=== PATIENT | male | born 1960 | race Caucasian/White ===

== ENCOUNTER 2016-11-08 19:22 | Emergency (ER) | payer OTHER ==
[2016-11-08 19:42] VITALS: BP 139/122
[2016-11-08] MEDS ORDERED: Ondansetron 4 MG/2 ML SDV IVPUSH STA (20:41)
[2016-11-08] MEDS ORDERED: Sodium Chloride 0.9% 1,000 ML IV ONE (20:41)
--- NOTE | 2016-11-08 20:51 | EDM.PDOC ---
ED HPI Allergic Reaction - General Chief Complaint: Allergic Reaction Stated Complaint: POSS ALLERGIC REACTION Time Seen by Provider: 11/08/16 19:39 Source of Information: Reports: Patient, Old records, RN notes reviewed History Limitations: Reports: No limitations - History of Present Illness INITIAL COMMENTS - FREE TEXT/NARRATIVE: The patient states that he has had nausea and vomiting for the past 3 days, he believes. He complains of generalized crampy abdominal pain. No recent diarrhea. No recent fever. The patient admits that he is a heavy drinker. He is a chronic daily alcoholic since 12 years of age. His last period of sobriety was for 45 days when he was in inpatient treatment, about a year ago. He then remained sober for approximately 2 weeks before resuming drinking, and has been drinking essentially daily ever since. He states that he drinks 10 fireball shot bottles and one can of beer per day. He believes that his last drink was 2 days ago, which would be 11/06/2016, but he is disoriented to time, bleeding that today is Monday, therefore it is possible that his last drink was on 11/04/2016. He states that he has been hospitalized in the past for his alcoholism, but it does not sound as though he has experienced actual delirium tremens. He has had alcoholic hallucinosis in the past, but denies having any hallucinations recently. Here in the ED we find patient's BP to be elevated at 139/122, tachycardic at 109 bpm, afebrile, saturating 98% on room air. - Related Data Allergies/ADRs: Allergies Allergy/AdvReac Type Severity Reaction Status Date / Time No Known Allergies Allergy Verified 11/08/16 19:35 Home Meds: Home Meds Folic Acid 1 tab PO DAILY 07/07/16 [History] Multivitamin [Multi-Vitamin Daily] 1 tab PO DAILY 07/07/16 [History] Omeprazole 20 mg PO BID 07/07/16 [History] Acetaminophen [Tylenol] 650 mg PO Q4H PRN 07/25/16 [History] Ranitidine [Zantac] 150 mg PO BID 07/25/16 [History] Thiamine [Vitamin B-1] 100 mg PO DAILY 07/25/16 [History] diphenhydrAMINE HCl [Diphenhydramine HCl] 50 mg PO BEDTIME 07/25/16 [History] metroNIDAZOLE/Skin Cleansr #23 [[place] 0.75% Gel Kit] 1 applic TOP BID [History] oxyCODONE HCl [Oxycodone HCl] 10 mg PO Q4H PRN 07/25/16 [History] Aspirin 81 mg PO BRK 08/16/16 [History] atorvaSTATin [Lipitor] 80 mg PO BEDTIME 08/16/16 [History] guaiFENesin [Mucinex] 600 mg PO BID 08/16/16 [History] tiZANidine HCl [Zanaflex] 4 mg PO Q6H PRN 08/16/16 [History] Acetaminophen/HYDROcodone [[place] 325-5 MG] 1 tab PO Q4H PRN #15 tablet 08/18/16 [Rx] Docusate Sodium [Colace] 100 mg PO BID #60 cap 08/18/16 [Rx] Metoprolol Tartrate [Lopressor] 75 mg PO BID #60 tablet 08/18/16 [Rx] Rivaroxaban [Xarelto] 20 mg PO DAILY #30 tablet 08/18/16 [Rx] Past Medical History Cardiovascular History: Reports: Afib (paroxysmal), High cholesterol, Hypertension Respiratory History: Reports: COPD Gastrointestinal History: Reports: GERD Genitourinary History: Reports: Renal calculus Musculoskeletal History: Reports: Fracture (right foot) Psychiatric History: Reports: Addiction Endocrine/Metabolic History: Reports: Obesity/BMI 30+ - Infectious Disease History Infectious Disease History: Reports: Hepatitis C, MRSA Other Infectious Disease History: Hep C per [facility] hospitalist/[place], 06/2016. - Past Surgical History Musculoskeletal Surgical History: Reports: ORIF (left tibia, right tibia, left foot), Other (see below) (Left biceps tendon repair) Social & Family History - Family History Family Medical History: Noncontributory Neurological: Reports: CVA Endocrine/Metabolic: Reports: Diabetes, type II Hematologic: Reports: Other (see below) Other Hematologic Family History: hepatitias c Immunologic: Reports: None Oncologic: Reports: Leukemia - Tobacco Use Smoking Status *Q: Current Some Day Smoker Years of Tobacco use: 44 Packs/Tins Daily: 0.5 Used Tobacco, but Quit: No Month Tobacco Last Used: september - Caffeine Use Caffeine Use: Reports: Soda - Alcohol Use Alcohol Use History: Yes Days Per Week of Alcohol Use: 7 Number of Drinks Per Day: 11 Total Drinks Per Week: 77 Alcohol Use Frequency: Daily - Recreational Drug Use Recreational Drug Use: Yes Drug Use in Last 12 Months: Yes Recreational Drug Type: Reports: Benzodiazepines, Cocaine, Heroin, Oxycodone Recreational Drug Use Frequency: Not Used In Over 3 Months - Living Situation & Occupation Living situation: Reports: , alone Occupation: unemployed ED ROS ALLERGIC REACTION - Review of Systems Review Of Systems: See Below Constitutional: Reports: no symptoms HEENT: Reports: No symptoms Respiratory: Reports: No Symptoms Cardiovascular: Reports: No symptoms Endocrine: Reports: no symptoms GI/Abdominal: Reports: No symptoms : Reports: no symptoms Musculoskeletal: Reports: no symptoms Skin: Reports: no symptoms Neurological: Reports: No Symptoms Psychiatric: Reports: No symptoms Hematologic/Lymphatic: Reports: no symptoms Immunologic: Reports: no symptoms ED EXAM GENERAL NO PERIP PULSE - Physical Exam Exam: See Below Exam Limited By: No limitations General Appearance: alert, WD/WN, moderate distress (mentally agitated, diaphoretic) Eye Exam: bilateral eye: EOMI, normal inspection Ears: normal external exam, hearing grossly normal Nose: normal inspection, no blood Throat/Mouth: Normal inspection, Normal lips, Normal voice, No airway compromise Head: atraumatic, normocephalic Neck: normal inspection, full range of motion Respiratory/Chest: no respiratory distress, lungs clear, normal breath sounds, no accessory muscle use Cardiovascular: normal peripheral pulses, no edema, no gallop, no JVD, no murmur , no rub, tachycardia (regular) GI/Abdominal: normal bowel sounds, soft, no organomegaly, no distention, no abnormal bruit, no mass, tender (generalized, non-focal) (Male) Exam: Deferred Rectal (Males) Exam: Deferred Back Exam: normal inspection, full range of motion. No: CVA tenderness (L), CVA tenderness (R) Extremities: normal inspection, normal range of motion, no pedal edema, normal capillary refill Neurological: alert, no motor/sensory deficits, confused, disoriented (to time) Psychiatric: normal affect, other Skin Exam: Intact, No rash, Diaphoretic, Increased warmth Lymphatic: no adenopathy EKG INTERPRETATION EKG Date: 11/08/16 Time: 20:56 Rhythm: other (Sinus tachycardia) Rate (beats/min): 114 [place]: normal P-wave: present QRS: normal ST-T: normal QT: normal Comparison: change from previous EKG (08/17/2016 was in atrial fibrillation) Course - Vital Signs Last Recorded V/S: Last Vital Signs Temp 37.1 C 11/08/16 23:18 Pulse 109 H 11/08/16 19:36 Resp BP 139/122 H 11/08/16 19:36 Pulse Ox 98 11/08/16 19:36 - Orders/Labs/Meds Orders: Active Orders 24 hr Category Date Time Status EKG Documentation Completion [RC] STAT Care 11/08/16 20:37 Active Chest 1V Frontal [CR] Stat Exams 11/08/16 20:37 Taken Chest Abdomen Pelvis w Cont [CT] Stat Exams 11/09/16 00:04 Taken CULTURE BLOOD [BC] Stat Lab 11/09/16 00:50 Received CULTURE BLOOD [BC] Stat Lab 11/09/16 00:58 Received Labs: Laboratory Tests 11/08/16 11/08/16 11/08/16 Range/Units 20:37 20:45 20:45 WBC 14.81 H (4.23-9.07) K/mm3 RBC 6.10 H (4.63-6.08) M/mm3 Hgb 16.9 (13.7-17.5) gm/L Hct 47.9 (40.1-51.0) % MCV 78.5 L (79.0-92.2) fl MCH 27.7 (25.7-32.2) pg MCHC 35.3 (32.2-35.5) g/dl RDW Std Deviation 40.0 (35.1-43.9) fL Plt Count 150 L (163-337) K/mm3 MPV 9.9 (9.4-12.3) fl Neutrophils % (Manual) 92 H (40-60) % Band Neutrophils % 0 (0-10) % Lymphocytes % (Manual) 2 L (20-40) % Atypical Lymphs % 1 % Monocytes % (Manual) 5 (2-10) % Eosinophils % (Manual) 0 L (0.8-7.0) % Basophils % (Manual) 0 L (0.2-1.2) Platelet Estimate Adequate Plt Morphology Comment Normal Poikilocytosis 1+ slight Anisocytosis 1+ slight Microcytosis 1+ slight Tear Drop Cells 1+ slight Ovalocytes 1+ slight RBC Morph Comment Abnormal Puncture Site Rt radial ABG pH 7.44 (7.35-7.45) ABG pCO2 24.5 L (35.0-45.0) mmHg ABG pO2 74.0 L (80.0-100.0) mmHg ABG HCO3 16.5 L (22.0-26.0) meq/L ABG O2 Saturation 95.8 L (96.0-97.0) % ABG Base Excess -5.2 L (-2-2.0) Sudheer Test Positive O2 Delivery Device Room air FiO2 0.00 L (21.00-100.00) % Sodium 133 L (136-145) mEq/L Potassium 4.0 (3.5-5.1) mEq/L Chloride 96 L (98-107) mEq/L Carbon Dioxide 16 L (21-32) mEq/L Anion Gap 25.0 H (5-15) BUN 18 (7-18) mg/dL Creatinine 1.4 H (0.7-1.3) mg/dL Est Cr Clr Drug Dosing 54.43 mL/min Estimated GFR (MDRD) 52 (>60) mL/min BUN/Creatinine Ratio 12.9 L (14-18) Glucose 204 H (74-106) mg/dL Serum Osmolality (280-300) mosm/kg Lactic Acid (0.4-2.0) mmol/L Calcium 9.0 (8.5-10.1) mg/dL Magnesium 1.4 L (1.8-2.4) mg/dl Total Bilirubin 4.7 H (0.2-1.0) mg/dL Direct Bilirubin (0.0-0.2) mg/dl AST 2538 H (15-37) U/L ALT 3985 H (16-63) U/L Alkaline Phosphatase 114 (46-116) U/L Creatine Kinase (39-308) U/L Troponin I 0.041 (0.00-0.056) ng/mL B-Natriuretic Peptide (0-100) pg/mL Total Protein 7.3 (6.4-8.2) g/dl Albumin 3.9 (3.4-5.0) g/dl Globulin 3.4 gm/dL Albumin/Globulin Ratio 1.2 (1-2) Amylase (25-115) U/L Lipase 879 H (73-393) U/L Urine Color (Yellow) Urine Appearance (Clear) Urine pH (5.0-8.0) Ur Specific [place] (1.005-1.030) Urine Protein (Negative) Urine Glucose (UA) (Negative) Urine Ketones (Negative) Urine Occult Blood (Negative) Urine Nitrite (Negative) Urine Bilirubin (Negative) Urine Urobilinogen (0.2-1.0) Ur Leukocyte Esterase (Negative) Urine RBC (0-5) /hpf Urine WBC (0-5) /hpf Ur Epithelial Cells Ur Squamous Epith Cells (0-5) /hpf Urine Bacteria (FEW) /hpf Hyaline Casts (0-5) /lpf Urine Mucus (FEW) /hpf Salicylates (2.8-20) mg/dL Urine Opiates Screen (NEGATIVE) Ur Buprenorphine Scrn (NEGATIVE) Ur Oxycodone Screen (NEGATIVE) Urine Methadone Screen (NEGATIVE) Ur Propoxyphene Screen (NEGATIVE) Acetaminophen 0 L (10-30) ug/mL Ur Barbiturates Screen (NEGATIVE) Ur Tricyclics Screen (NEGATIVE) Ur Phencyclidine Scrn (NEGATIVE) Ur Amphetamine Screen (NEGATIVE) U Methamphetamines Scrn (NEGATIVE) U Benzodiazepines Scrn (NEGATIVE) U Cocaine Metab Screen (NEGATIVE) U Marijuana (THC) Screen (NEGATIVE) Ethyl Alcohol 0.00 (0.00) gm% 11/08/16 11/08/16 11/08/16 Range/Units 20:45 20:45 20:45 WBC (4.23-9.07) K/mm3 RBC (4.63-6.08) M/mm3 Hgb (13.7-17.5) gm/L Hct (40.1-51.0) % MCV (79.0-92.2) fl MCH (25.7-32.2) pg MCHC (32.2-35.5) g/dl RDW Std Deviation (35.1-43.9) fL Plt Count (163-337) K/mm3 MPV (9.4-12.3) fl Neutrophils % (Manual) (40-60) % Band Neutrophils % (0-10) % Lymphocytes % (Manual) (20-40) % Atypical Lymphs % % Monocytes % (Manual) (2-10) % Eosinophils % (Manual) (0.8-7.0) % Basophils % (Manual) (0.2-1.2) Platelet Estimate Plt Morphology Comment Poikilocytosis Anisocytosis Microcytosis Tear Drop Cells Ovalocytes RBC Morph Comment Puncture Site ABG pH (7.35-7.45) ABG pCO2 (35.0-45.0) mmHg ABG pO2 (80.0-100.0) mmHg ABG HCO3 (22.0-26.0) meq/L ABG O2 Saturation (96.0-97.0) % ABG Base Excess (-2-2.0) Sudheer Test O2 Delivery Device FiO2 (21.00-100.00) % Sodium (136-145) mEq/L Potassium (3.5-5.1) mEq/L Chloride (98-107) mEq/L Carbon Dioxide (21-32) mEq/L Anion Gap (5-15) BUN (7-18) mg/dL Creatinine (0.7-1.3) mg/dL Est Cr Clr Drug Dosing mL/min Estimated GFR (MDRD) (>60) mL/min BUN/Creatinine Ratio (14-18) Glucose (74-106) mg/dL Serum Osmolality (280-300) mosm/kg Lactic Acid (0.4-2.0) mmol/L Calcium (8.5-10.1) mg/dL Magnesium (1.8-2.4) mg/dl Total Bilirubin (0.2-1.0) mg/dL Direct Bilirubin 2.90 H (0.0-0.2) mg/dl AST (15-37) U/L ALT (16-63) U/L Alkaline Phosphatase (46-116) U/L Creatine Kinase (39-308) U/L Troponin I (0.00-0.056) ng/mL B-Natriuretic Peptide 33 (0-100) pg/mL Total Protein (6.4-8.2) g/dl Albumin (3.4-5.0) g/dl Globulin gm/dL Albumin/Globulin Ratio (1-2) Amylase (25-115) U/L Lipase (73-393) U/L Urine Color (Yellow) Urine Appearance (Clear) Urine pH (5.0-8.0) Ur Specific [place] (1.005-1.030) Urine Protein (Negative) Urine Glucose (UA) (Negative) Urine Ketones (Negative) Urine Occult Blood (Negative) Urine Nitrite (Negative) Urine Bilirubin (Negative) Urine Urobilinogen (0.2-1.0) Ur Leukocyte Esterase (Negative) Urine RBC (0-5) /hpf Urine WBC (0-5) /hpf Ur Epithelial Cells Ur Squamous Epith Cells (0-5) /hpf Urine Bacteria (FEW) /hpf Hyaline Casts (0-5) /lpf Urine Mucus (FEW) /hpf Salicylates < 0.2 L (2.8-20) mg/dL Urine Opiates Screen (NEGATIVE) Ur Buprenorphine Scrn (NEGATIVE) Ur Oxycodone Screen (NEGATIVE) Urine Methadone Screen (NEGATIVE) Ur Propoxyphene Screen (NEGATIVE) Acetaminophen (10-30) ug/mL Ur Barbiturates Screen (NEGATIVE) Ur Tricyclics Screen (NEGATIVE) Ur Phencyclidine Scrn (NEGATIVE) Ur Amphetamine Screen (NEGATIVE) U Methamphetamines Scrn (NEGATIVE) U Benzodiazepines Scrn (NEGATIVE) U Cocaine Metab Screen (NEGATIVE) U Marijuana (THC) Screen (NEGATIVE) Ethyl Alcohol (0.00) gm% 11/08/16 11/08/16 11/08/16 Range/Units 20:45 21:05 23:28 WBC (4.23-9.07) K/mm3 RBC (4.63-6.08) M/mm3 Hgb (13.7-17.5) gm/L Hct (40.1-51.0) % MCV (79.0-92.2) fl MCH (25.7-32.2) pg MCHC (32.2-35.5) g/dl RDW Std Deviation (35.1-43.9) fL Plt Count (163-337) K/mm3 MPV (9.4-12.3) fl Neutrophils % (Manual) (40-60) % Band Neutrophils % (0-10) % Lymphocytes % (Manual) (20-40) % Atypical Lymphs % % Monocytes % (Manual) (2-10) % Eosinophils % (Manual) (0.8-7.0) % Basophils % (Manual) (0.2-1.2) Platelet Estimate Plt Morphology Comment Poikilocytosis Anisocytosis Microcytosis Tear Drop Cells Ovalocytes RBC Morph Comment Puncture Site ABG pH (7.35-7.45) ABG pCO2 (35.0-45.0) mmHg ABG pO2 (80.0-100.0) mmHg ABG HCO3 (22.0-26.0) meq/L ABG O2 Saturation (96.0-97.0) % ABG Base Excess (-2-2.0) Sudheer Test O2 Delivery Device FiO2 (21.00-100.00) % Sodium (136-145) mEq/L Potassium (3.5-5.1) mEq/L Chloride (98-107) mEq/L Carbon Dioxide (21-32) mEq/L Anion Gap (5-15) BUN (7-18) mg/dL Creatinine (0.7-1.3) mg/dL Est Cr Clr Drug Dosing mL/min Estimated GFR (MDRD) (>60) mL/min BUN/Creatinine Ratio (14-18) Glucose (74-106) mg/dL Serum Osmolality 289 (280-300) mosm/kg Lactic Acid 7.7 H (0.4-2.0) mmol/L Calcium (8.5-10.1) mg/dL Magnesium (1.8-2.4) mg/dl Total Bilirubin (0.2-1.0) mg/dL Direct Bilirubin (0.0-0.2) mg/dl AST (15-37) U/L ALT (16-63) U/L Alkaline Phosphatase (46-116) U/L Creatine Kinase 431 H (39-308) U/L Troponin I (0.00-0.056) ng/mL B-Natriuretic Peptide (0-100) pg/mL Total Protein (6.4-8.2) g/dl Albumin (3.4-5.0) g/dl Globulin gm/dL Albumin/Globulin Ratio (1-2) Amylase 108 (25-115) U/L Lipase (73-393) U/L Urine Color Dark yellow (Yellow) Urine Appearance Clear (Clear) Urine pH 6.0 (5.0-8.0) Ur Specific [place] > or = 1.030 (1.005-1.030) Urine Protein 2+ H (Negative) Urine Glucose (UA) Negative (Negative) Urine Ketones 1+ H (Negative) Urine Occult Blood 2+ H (Negative) Urine Nitrite Negative (Negative) Urine Bilirubin 1+ H (Negative) Urine Urobilinogen 1.0 (0.2-1.0) Ur Leukocyte Esterase Negative (Negative) Urine RBC 0-5 (0-5) /hpf Urine WBC 5-10 H (0-5) /hpf Ur Epithelial Cells Not Reportable Ur Squamous Epith Cells 10-20 H (0-5) /hpf Urine Bacteria Moderate H (FEW) /hpf Hyaline Casts 20-30 H (0-5) /lpf Urine Mucus Moderate H (FEW) /hpf Salicylates (2.8-20) mg/dL Urine Opiates Screen (NEGATIVE) Ur Buprenorphine Scrn (NEGATIVE) Ur Oxycodone Screen (NEGATIVE) Urine Methadone Screen (NEGATIVE) Ur Propoxyphene Screen (NEGATIVE) Acetaminophen (10-30) ug/mL Ur Barbiturates Screen (NEGATIVE) Ur Tricyclics Screen (NEGATIVE) Ur Phencyclidine Scrn (NEGATIVE) Ur Amphetamine Screen (NEGATIVE) U Methamphetamines Scrn (NEGATIVE) U Benzodiazepines Scrn (NEGATIVE) U Cocaine Metab Screen (NEGATIVE) U Marijuana (THC) Screen (NEGATIVE) Ethyl Alcohol (0.00) gm% 11/08/16 Range/Units 23:28 WBC (4.23-9.07) K/mm3 RBC (4.63-6.08) M/mm3 Hgb (13.7-17.5) gm/L Hct (40.1-51.0) % MCV (79.0-92.2) fl MCH (25.7-32.2) pg MCHC (32.2-35.5) g/dl RDW Std Deviation (35.1-43.9) fL Plt Count (163-337) K/mm3 MPV (9.4-12.3) fl Neutrophils % (Manual) (40-60) % Band Neutrophils % (0-10) % Lymphocytes % (Manual) (20-40) % Atypical Lymphs % % Monocytes % (Manual) (2-10) % Eosinophils % (Manual) (0.8-7.0) % Basophils % (Manual) (0.2-1.2) Platelet Estimate Plt Morphology Comment Poikilocytosis Anisocytosis Microcytosis Tear Drop Cells Ovalocytes RBC Morph Comment Puncture Site ABG pH (7.35-7.45) ABG pCO2 (35.0-45.0) mmHg ABG pO2 (80.0-100.0) mmHg ABG HCO3 (22.0-26.0) meq/L ABG O2 Saturation (96.0-97.0) % ABG Base Excess (-2-2.0) Sudheer Test O2 Delivery Device FiO2 (21.00-100.00) % Sodium (136-145) mEq/L Potassium (3.5-5.1) mEq/L Chloride (98-107) mEq/L Carbon Dioxide (21-32) mEq/L Anion Gap (5-15) BUN (7-18) mg/dL Creatinine (0.7-1.3) mg/dL Est Cr Clr Drug Dosing mL/min Estimated GFR (MDRD) (>60) mL/min BUN/Creatinine Ratio (14-18) Glucose (74-106) mg/dL Serum Osmolality (280-300) mosm/kg Lactic Acid (0.4-2.0) mmol/L Calcium (8.5-10.1) mg/dL Magnesium (1.8-2.4) mg/dl Total Bilirubin (0.2-1.0) mg/dL Direct Bilirubin (0.0-0.2) mg/dl AST (15-37) U/L ALT (16-63) U/L Alkaline Phosphatase (46-116) U/L Creatine Kinase (39-308) U/L Troponin I (0.00-0.056) ng/mL B-Natriuretic Peptide (0-100) pg/mL Total Protein (6.4-8.2) g/dl Albumin (3.4-5.0) g/dl Globulin gm/dL Albumin/Globulin Ratio (1-2) Amylase (25-115) U/L Lipase (73-393) U/L Urine Color (Yellow) Urine Appearance (Clear) Urine pH (5.0-8.0) Ur Specific [place] (1.005-1.030) Urine Protein (Negative) Urine Glucose (UA) (Negative) Urine Ketones (Negative) Urine Occult Blood (Negative) Urine Nitrite (Negative) Urine Bilirubin (Negative) Urine Urobilinogen (0.2-1.0) Ur Leukocyte Esterase (Negative) Urine RBC (0-5) /hpf Urine WBC (0-5) /hpf Ur Epithelial Cells Ur Squamous Epith Cells (0-5) /hpf Urine Bacteria (FEW) /hpf Hyaline Casts (0-5) /lpf Urine Mucus (FEW) /hpf Salicylates (2.8-20) mg/dL Urine Opiates Screen Negative (NEGATIVE) Ur Buprenorphine Scrn Negative (NEGATIVE) Ur Oxycodone Screen Negative (NEGATIVE) Urine Methadone Screen Negative (NEGATIVE) Ur Propoxyphene Screen Negative (NEGATIVE) Acetaminophen (10-30) ug/mL Ur Barbiturates Screen Negative (NEGATIVE) Ur Tricyclics Screen Negative (NEGATIVE) Ur Phencyclidine Scrn Negative (NEGATIVE) Ur Amphetamine Screen Negative (NEGATIVE) U Methamphetamines Scrn Negative (NEGATIVE) U Benzodiazepines Scrn Negative (NEGATIVE) U Cocaine Metab Screen Negative (NEGATIVE) U Marijuana (THC) Screen Negative (NEGATIVE) Ethyl Alcohol (0.00) gm% Meds: Medications Discontinued Medications Generic Name Dose Route Start Last Admin Trade Name Freq PRN Reason Stop Dose Admin Al Hydroxide/Mg Hydroxide 30 0 ml 11/08/16 22:02 11/08/16 22:12 ml/ Lidocaine HCl 15 ml PO 11/08/16 22:03 45 ml ONETIME STA Administration Diatrizoate Meglum/Diatrizoate Sod 90 ml 11/09/16 02:32 11/09/16 02:33 Gastrografin 37% PO 11/09/16 02:33 90 ml ONETIME ONE Administration Diazepam 10 mg 11/08/16 20:39 11/08/16 20:52 Valium IVPUSH 11/08/16 20:40 10 mg ONETIME STA Administration Diazepam 10 mg 11/09/16 00:06 11/09/16 00:16 Valium IVPUSH 11/09/16 00:07 10 mg ONETIME STA Administration Diazepam 10 mg 11/09/16 00:14 11/09/16 00:16 Valium IVPUSH 11/09/16 00:15 Not Given ONETIME ONE Sodium Chloride 1,000 mls @ 999 mls/hr 11/08/16 20:41 11/08/16 21:04 Normal Saline IV 11/08/16 21:41 999 mls/hr ONETIME ONE Administration Magnesium Sulfate 2 gm/ Premix 50 mls @ 50 mls/hr 11/08/16 22:07 11/08/16 22: 12 IV 11/08/16 23:06 50 mls/hr ONETIME ONE Administration Sodium Chloride 1,000 mls @ 150 mls/hr 11/09/16 00:15 11/09/16 00:13 Normal Saline IV 150 mls/hr ASDIRECTED DIAMANTE Administration Vancomycin HCl 1 gm/ Sodium 250 mls @ 250 mls/hr 11/09/16 00:36 11/09/16 00: 51 Chloride IV 11/09/16 01:35 250 mls/hr ONETIME ONE Administration Iopamidol 25 ml 11/09/16 02:32 11/09/16 02:33 Isovue-370 (76%) IVPUSH 11/09/16 02:33 25 ml ONETIME ONE Administration Iopamidol 100 ml 11/09/16 02:32 11/09/16 02:33 Isovue-370 (76%) IVPUSH 11/09/16 02:33 100 ml ONETIME ONE Administration Ondansetron HCl 8 mg 11/08/16 20:41 11/08/16 21:06 Zofran IVPUSH 11/08/16 20:42 8 mg ONETIME STA Administration - Radiology Interpretation Free Text/Narrative:: Portable chest radiograph appears to be grossly normal. Cardiac silhouette is within normal limits. No pulmonary vascular congestion. No pleural effusions. No focal infiltrate. No pneumothorax. Formal read per the Radiologist pending. CT of the abdomen and pelvis with oral and IV contrast is read by [facility] as: 1. Moderate-size hiatal hernia. Gastroesophageal reflux. 2. Proximal sigmoid colonic diverticulitis without perforation or abscess. 3. Additional nonemergent CT findings above the - Re-Assessments/Exams Free Text/Narrative Re-Assessment/Exam: 11/08/16 20:50 The patient is showing numerous signs of impending delirium tremens, including agitation, disorientation to time, and autonomic instability, including tachycardia, elevated blood pressure, and diaphoresis. At this time, he is denying hallucinosis, however, that is not a necessary criterion for delirium tremens. I have ordered IV fluids, Zofran, and Valium 10 mg IVP. I will repeat the Valium as needed with a goal of the patient being alert, but calm. 11/08/16 22:02 Following the single dose of Valium, the patient is alert but much calmer. He is complaining of heartburn. I will order a GI cocktail. 11/08/16 22:04 The patient's ABG demonstrates a primary respiratory alkalosis and concomitant metabolic acidosis. 11/08/16 23:54 The patient's urinalysis reflects contamination, not a UTI. 11/08/16 23:54 The patient is demonstrating significant alcohol withdraw symptoms and, I believe, impending delirium tremens, lactic acidosis, acute hepatitis of undetermined etiology, hypomagnesemia, and an elevated lipase. His alcohol withdrawal symptoms are manifested by mental agitation, disorientation to time, and autonomic instability, including tachycardia, elevated blood pressure, and diaphoresis. His lactic acidosis as demonstrated by an elevated lactic acid level of 7.7, a bicarbonate level of 16, and an anion gap of 25. The etiology of his lactic acidosis is not clear at this time. His acute hepatitis is demonstrated by his elevated transaminases, total bilirubin, and direct bilirubin. Please note that his elevated transaminases are not in an alcoholic pattern. His LFTs were normal on 07/24/2016. The patient is complaining of abdominal pain, and his lipase is elevated at 879. While this is greater than twice the upper limit of normal, is less than 3 times the upper limit of normal, a criterion necessary for a diagnosis of pancreatitis. The case was discussed with Dr. Christensen at 23:38. We are in agreement that the patient is too ill to remain at this facility. The above was discussed with the patient. He is agreeable to transfer to [place]. 11/09/16 00:[address] Sinha, [facility] Administrator at [facility], at 23: 55. He accepts the patient for transfer, but would like us to first obtain a CT scan of the abdomen and pelvis, along with a serum osmole, CPK level, and amylase level, and fax the results once available. These have been ordered. The patient's agitation is increasing, therefore I have ordered a repeat dose of Valium 10 mg, along with additional IV fluid. 11/09/16 00:[address] Sinha at 00:30. He has reviewed the patient's medical records from an admission to their facility in June. He relates that the patient was found to have MRSA in the blood at that time. He was treated, but the patient has a history of noncompliance with medication. He is recommending we obtain blood cultures here, and give the patient a single dose of vancomycin. 11/09/16 02:08 The patient has returned from CT scan. We will proceed with transfer to [place]. 11/09/16 03:[address] scan of the abdomen and pelvis finds acute sigmoid diverticulitis. The CT report has been faxed to [facility]. Departure - Departure Time of Disposition: 02:10 Disposition: DC/Tfer to Acute Hospital 02 Condition: serious Clinical Impression: Alcohol dependence with withdrawal, Lactic acidosis, Acute hepatitis, Hypomagnesemia, Abdominal pain, Elevated lipase, Sigmoid diverticulitis Referrals: Gilda Huang DO [Primary Care Provider] - - My Orders Last 24 Hours: My Active Orders 11/08/16 20:37 EKG Documentation Completion [RC] STAT Chest 1V Frontal [CR] Stat 11/09/16 00:04 Chest Abdomen Pelvis w Cont [CT] Stat 11/09/16 00:50 CULTURE BLOOD [BC] Stat 11/09/16 00:58 CULTURE BLOOD [BC] Stat - Assessment/Plan Last 24 Hours: My Active Orders 11/08/16 20:37 EKG Documentation Completion [RC] STAT Chest 1V Frontal [CR] Stat 11/09/16 00:04 Chest Abdomen Pelvis w Cont [CT] Stat 11/09/16 00:50 CULTURE BLOOD [BC] Stat 11/09/16 00:58 CULTURE BLOOD [BC] Stat
[2016-11-08] MEDS ORDERED: Alum Hydrox/Mag Hydrox/Simeth 30 ML, Lidocaine 2% 15 ML PO STA ×2 (22:02)
[2016-11-08] MEDS ORDERED: Magnesium Sulfate/Water 2 GM in Premix Bag 1 BAG IV ONE (22:07)
[2016-11-09] MEDS ORDERED: Sodium Chloride 0.9% 1,000 ML IV SCH (00:15)
[2016-11-09] MEDS ORDERED: Iopamidol 755 Mg/ML 100 ML Bottle IVPUSH ONE (02:32)
[2016-11-09] MEDS ORDERED: Iopamidol 755 MG/ML 50 ML Bottle IVPUSH ONE (02:32)
[2016-11-09] MEDS ORDERED: Diatrizoate Meglumine/Diatrizoate Sodium 37% 120 ML Bottle PO ONE (02:32)
--- NOTE | 2016-11-09 06:58 | CR ---
Chest: Frontal view of the chest was obtained. Comparison: Previous chest x-ray of 07/27/16. Heart size and mediastinum are within normal limits. Mild tortuosity of the thoracic aorta is seen. Moderately large hiatal hernia is seen. Lungs are clear with no acute infiltrates. Bony structures are grossly intact. Impression: 1. Incidental findings. Nothing acute is identified. Diagnostic code #2
--- NOTE | 2016-11-09 07:20 | CT ---
CT chest Technique: Multiple axial sections through the chest were obtained. Intravenous contrast was utilized. Comparison: Previous chest x-ray performed on the same day. Previous chest CT of 10/17/14. Findings: Moderately large hiatal hernia is seen. Gastroesophageal reflux of contrast is noted. Several pretracheal lymph nodes are seen which are felt to be within normal limits. No coronary artery calcification is seen. No pericardial thickening is seen. Mild areas of scarring seen within the lungs. Lungs otherwise are clear. Bone window settings were reviewed which show mild degenerative endplate spurring within the spine. Old rib fracture is noted within the left tenth and ninth ribs. Old fracture identified within the left transverse process of L3. Impression: 1. Old appearing fractures within the ninth and tenth ribs. Old fracture within the left transverse process of L3. 2. Moderately large hiatal hernia with gastroesophageal reflux contrast. 3. Mild scattered areas of scarring within both lungs. Diagnostic code #2 I agree with preliminary report issued by [facility] (preliminary report dictated on 11/09/16, 3:57 AM Central Time) CT abdomen and pelvis Technique: Multiple axial sections were obtained from above the dome of the diaphragm inferiorly through the pubic symphysis. Intravenous contrast was utilized. No oral contrast has been given. Delayed images were also obtained through the bladder. Comparison: Previous study of 10/17/14. Findings: Fatty infiltration seen within the liver. Spleen at the upper limits of normal felt to be incidental. Fat-containing abdominal wall hernia is seen anteriorly and slightly above the umbilicus. This is identified on prior study and has slightly increased in size. Adrenal glands show no nodule. Pancreas appears within normal limits. Gallbladder shows no calcified gallstones. Kidneys show symmetric contrast enhancement without hydronephrosis or mass. Aorta shows no aneurysmal dilatation. No retroperitoneal adenopathy or mesenteric abnormalities are seen. Bowel wall thickening and slight inflammatory change is seen within a portion of the colon with very slight surrounding inflammatory change suggesting mild diverticulitis. Numerous diverticuli are seen within this region. No fluid collections are seen. No other inflammatory change is noted. Appendix believed to be seen. Delayed images show contrast within the distal ureters and within the bladder. Bone window settings were reviewed which show scattered degenerative spurring within the lumbar spine. Disc space narrowing and vacuum phenomena noted at L4-L5 and L5-S1. Small fat-containing inguinal hernias are seen. Impression: 1. Mild diverticulitis felt to be present. No fluid collections of abscess are seen. 2. Fatty infiltration within the liver and other incidental findings as described above. Diagnostic code #3 I agree with preliminary report issued by [facility] (preliminary report dictated on 11/09/16, 3:57 AM Central Time)
== END 2016-11-09 02:48 ==
LOC: JD.ED 19:22
DX: K57.32 Diverticulitis of large intestine without perforation or abscess without bleeding (principal); F10.239 Alcohol dependence with withdrawal, unspecified; E87.2 Acidosis; E83.42 Hypomagnesemia; R74.8 Abnormal levels of other serum enzymes; I48.0 Paroxysmal atrial fibrillation; Z79.01 Long term (current) use of anticoagulants; I10 Essential (primary) hypertension; E78.00 Pure hypercholesterolemia, unspecified; J44.9 Chronic obstructive pulmonary disease, unspecified; K21.9 Gastro-esophageal reflux disease without esophagitis; E66.9 Obesity, unspecified; Z68.30 Body mass index [BMI] 30.0-30.9, adult; F17.200 Nicotine dependence, unspecified, uncomplicated
CPT/HCPCS: 36415; 36600; 71010; 71260; 74177; 80053; 80306; 81001; 82150; 82248; 82550; 82803; 83605; 83690; 83735; 83880; 83930; 84484; 85025; 87040; 93005; 96361; 96365; 96375; 96376; 99285; A9270; G0480; J2405; J3360; J3370; J7040; J7050; Q9963; Q9967; J3475

== ENCOUNTER 2017-07-06 14:21 | Emergency (ER) | payer OTHER ==
--- NOTE | 2017-07-06 14:34 | EDM.PDOC ---
ED HPI GENERAL MEDICAL PROBLEM - General Chief Complaint: Cardiovascular Problem Stated Complaint: FEET SWELLING Time Seen by Provider: 07/06/17 14:30 - History of Present Illness INITIAL COMMENTS - FREE TEXT/NARRATIVE: 56-year-old male presents emergency room with swollen feet. Patient has long history of atrial fibrillation apparently he was taken off his novel anticoagulant and placed on aspirin other than this he stopped all his medications about a month ago because he was worried that he might have a stroke because he started drinking again. The patient is been drinking fairly heavily for over a month. Over the last couple of days he does noticed increased swelling in his lower extremities she's having increased fatigue and decreased exercise tolerance he is not having any chest pain or shortness of breath. Bilateral Knee Pain Score (Numeric/FACES): 8 - Related Data Allergies Allergy/AdvReac Type Severity Reaction Status Date / Time No Known Allergies Allergy Verified 11/08/16 19:35 Home Meds: Home Meds Omeprazole 20 mg PO BID 07/07/16 [History] Furosemide [Lasix] 20 mg PO DAILY #4 tablet 07/06/17 [Rx] Potassium Chloride [Klor-Con M20] 20 meq PO BID #8 tab.er 07/06/17 [Rx] Past Medical History - Past Health History Medical/Surgical History: Denies Medical/Surgical History HEENT History: Reports: Cataract Cardiovascular History: Reports: Afib, High Cholesterol, Hypertension Other Cardiovascular History: pt is admitted this time with a-fib/RVR Respiratory History: Reports: COPD Other Respiratory History: 07/24/16 admitted with pneumonia Gastrointestinal History: Reports: GERD Genitourinary History: Reports: Renal Calculus Musculoskeletal History: Reports: Fracture (right foot) Other Musculoskeletal History: rigth foot fracture 20 yrs ago Neurological History: Reports: Other (See Below) Other Neuro History: With withdrawal for alcohol Psychiatric History: Reports: Addiction Endocrine/Metabolic History: Reports: Obesity/BMI 30+ Hematologic History: Reports: None Oncologic (Cancer) History: Reports: None - Infectious Disease History Infectious Disease History: Reports: Hepatitis C, MRSA Other Infectious Disease History: Hep C per Demond Ponce hospitalist/[place], 06/2016. - Past Surgical History Musculoskeletal Surgical History: Reports: ORIF, Other (See Below) Social & Family History - Family History Family Medical History: Noncontributory Neurological: Reports: CVA Endocrine/Metabolic: Reports: Diabetes, type II Hematologic: Reports: Other (See Below) Other Hematologic Family History: hepatitias c Immunologic: Reports: None Oncologic: Reports: Leukemia - Tobacco Use Smoking Status *Q: Current Some Day Smoker Years of Tobacco use: 44 Packs/Tins Daily: 0.5 Used Tobacco, but Quit: No Month Tobacco Last Used: september Second Hand Smoke Exposure: No - Caffeine Use Caffeine Use: Reports: Soda - Alcohol Use Days Per Week of Alcohol Use: 7 Number of Drinks Per Day: 11 Total Drinks Per Week: 77 - Recreational Drug Use Recreational Drug Use: Yes Drug Use in Last 12 Months: Yes Recreational Drug Type: Reports: Benzodiazepines, Cocaine, Heroin, Oxycodone Other Recreational Drug Type: used these drugs many years ago; bought some drugs from someone and does not know what he brought-thought it was valium Recreational Drug Use Frequency: Not Used In Over 3 Months - Living Situation & Occupation Living situation: Reports: , Alone Occupation: Unemployed ED ROS GENERAL - Review of Systems Review Of Systems: See Below Constitutional: Reports: Weakness. Denies: Fever, Chills HEENT: Reports: No Symptoms Respiratory: Reports: Other (See history of present illness) Cardiovascular: Reports: Edema. Denies: Chest Pain, Palpitations GI/Abdominal: Reports: No Symptoms Neurological: Reports: No Symptoms Psychiatric: Reports: Other (Increased recent usage of alcohol) ED EXAM, GENERAL - Physical Exam Exam: See Below Exam Limited By: No Limitations General Appearance: Alert, No Apparent Distress, Other (No tremors no tactile hallucination treated in the monitor he is in and out of atrial fibrillation.) Eye Exam: Bilateral Eye: Normal Inspection Head: Atraumatic, Normocephalic Neck: Normal Inspection, Supple, Non-Tender, Full Range of Motion. No: Lymphadenopathy (L), Lymphadenopathy (R) Respiratory/Chest: No Respiratory Distress, Lungs Clear, Normal Breath Sounds Cardiovascular: Regular Rate, Rhythm, No Edema, No Murmur GI/Abdominal: Normal Bowel Sounds, Soft, Non-Tender Back Exam: Normal Inspection. No: CVA Tenderness (L), CVA Tenderness (R) Extremities: Normal Inspection, Pedal Edema (1-2+ pitting in the lower extremities). No: No Pedal Edema Neurological: Alert, Oriented Skin Exam: Warm, Dry, Intact. No: Diaphoretic Lymphatic: No Adenopathy Course - Vital Signs Last Recorded V/S: Last Vital Signs Temp 35.9 C 07/06/17 14:41 Pulse 147 H 07/06/17 17:17 Resp 14 07/06/17 14:41 BP 125/103 H 07/06/17 17:17 Pulse Ox 97 07/06/17 14:41 - Orders/Labs/Meds Labs: Laboratory Tests 07/06/17 07/06/17 07/06/17 Range/Units 14:59 14:59 14:59 WBC 8.56 (4.23-9.07) K/mm3 RBC 4.54 L (4.63-6.08) M/mm3 Hgb 13.7 (13.7-17.5) gm/L Hct 40.1 (40.1-51.0) % MCV 88.3 (79.0-92.2) fl MCH 30.2 (25.7-32.2) pg MCHC 34.2 (32.2-35.5) g/dl RDW Std Deviation 47.6 H (35.1-43.9) fL Plt Count 111 L (163-337) K/mm3 MPV 8.8 L (9.4-12.3) fl Neutrophils % (Manual) 85 H (40-60) % Band Neutrophils % 0 (0-10) % Lymphocytes % (Manual) 10 L (20-40) % Atypical Lymphs % 0 % Monocytes % (Manual) 5 (2-10) % Eosinophils % (Manual) 0 L (0.8-7.0) % Basophils % (Manual) 0 L (0.2-1.2) Platelet Estimate Adequate RBC Morph Comment Normal PT 11.7 (8.0-13.0) SECONDS INR 1.07 APTT 25 (22-36) SECONDS Sodium 142 (136-145) mEq/L Potassium 3.1 L (3.5-5.1) mEq/L Chloride 106 (98-107) mEq/L Carbon Dioxide 22 (21-32) mEq/L Anion Gap 17.1 H (5-15) BUN 7 (7-18) mg/dL Creatinine 0.9 (0.7-1.3) mg/dL Est Cr Clr Drug Dosing 87.61 mL/min Estimated GFR (MDRD) > 60 (>60) mL/min BUN/Creatinine Ratio 7.8 L (14-18) Glucose 164 H (74-106) mg/dL Calcium 8.6 (8.5-10.1) mg/dL Magnesium 1.3 L (1.8-2.4) mg/dl Total Bilirubin 0.8 (0.2-1.0) mg/dL GGT (15-85) U/L AST 36 (15-37) U/L ALT 31 (16-63) U/L Alkaline Phosphatase 70 (46-116) U/L Ammonia (11-32) umol/L Troponin I < 0.017 (0.00-0.056) ng/mL NT-Pro-B Natriuret Pep 485 H (0-125) pg/mL Total Protein 6.7 (6.4-8.2) g/dl Albumin 3.4 (3.4-5.0) g/dl Globulin 3.3 gm/dL Albumin/Globulin Ratio 1.0 (1-2) Lipase (73-393) U/L Urine Color (Yellow) Urine Appearance (Clear) Urine pH (5.0-8.0) Ur Specific Roark (1.005-1.030) Urine Protein (Negative) Urine Glucose (UA) (Negative) Urine Ketones (Negative) Urine Occult Blood (Negative) Urine Nitrite (Negative) Urine Bilirubin (Negative) Urine Urobilinogen (0.2-1.0) Ur Leukocyte Esterase (Negative) Urine RBC (0-5) /hpf Urine WBC (0-5) /hpf Ur Epithelial Cells (0-5) /hpf Urine Bacteria (FEW) /hpf Urine Mucus (FEW) /hpf Urine Opiates Screen (NEGATIVE) Ur Buprenorphine Scrn (NEGATIVE) Ur Oxycodone Screen (NEGATIVE) Urine Methadone Screen (NEGATIVE) Ur Propoxyphene Screen (NEGATIVE) Ur Barbiturates Screen (NEGATIVE) Ur Tricyclics Screen (NEGATIVE) Ur Phencyclidine Scrn (NEGATIVE) Ur Amphetamine Screen (NEGATIVE) U Methamphetamines Scrn (NEGATIVE) U Benzodiazepines Scrn (NEGATIVE) U Cocaine Metab Screen (NEGATIVE) U Marijuana (THC) Screen (NEGATIVE) Ethyl Alcohol (0.00) gm% 07/06/17 07/06/17 07/06/17 Range/Units 14:59 16:10 16:10 WBC (4.23-9.07) K/mm3 RBC (4.63-6.08) M/mm3 Hgb (13.7-17.5) gm/L Hct (40.1-51.0) % MCV (79.0-92.2) fl MCH (25.7-32.2) pg MCHC (32.2-35.5) g/dl RDW Std Deviation (35.1-43.9) fL Plt Count (163-337) K/mm3 MPV (9.4-12.3) fl Neutrophils % (Manual) (40-60) % Band Neutrophils % (0-10) % Lymphocytes % (Manual) (20-40) % Atypical Lymphs % % Monocytes % (Manual) (2-10) % Eosinophils % (Manual) (0.8-7.0) % Basophils % (Manual) (0.2-1.2) Platelet Estimate RBC Morph Comment PT (8.0-13.0) SECONDS INR APTT (22-36) SECONDS Sodium (136-145) mEq/L Potassium (3.5-5.1) mEq/L Chloride (98-107) mEq/L Carbon Dioxide (21-32) mEq/L Anion Gap (5-15) BUN (7-18) mg/dL Creatinine (0.7-1.3) mg/dL Est Cr Clr Drug Dosing mL/min Estimated GFR (MDRD) (>60) mL/min BUN/Creatinine Ratio (14-18) Glucose (74-106) mg/dL Calcium (8.5-10.1) mg/dL Magnesium (1.8-2.4) mg/dl Total Bilirubin (0.2-1.0) mg/dL GGT 108 H (15-85) U/L AST (15-37) U/L ALT (16-63) U/L Alkaline Phosphatase (46-116) U/L Ammonia (11-32) umol/L Troponin I (0.00-0.056) ng/mL NT-Pro-B Natriuret Pep (0-125) pg/mL Total Protein (6.4-8.2) g/dl Albumin (3.4-5.0) g/dl Globulin gm/dL Albumin/Globulin Ratio (1-2) Lipase 147 (73-393) U/L Urine Color Light yellow (Yellow) Urine Appearance Clear (Clear) Urine pH 5.5 (5.0-8.0) Ur Specific Roark 1.015 (1.005-1.030) Urine Protein Negative (Negative) Urine Glucose (UA) Negative (Negative) Urine Ketones Negative (Negative) Urine Occult Blood 1+ H (Negative) Urine Nitrite Negative (Negative) Urine Bilirubin Negative (Negative) Urine Urobilinogen 0.2 (0.2-1.0) Ur Leukocyte Esterase Negative (Negative) Urine RBC 5-10 H (0-5) /hpf Urine WBC 0-5 (0-5) /hpf Ur Epithelial Cells 0-5 (0-5) /hpf Urine Bacteria Occasional (FEW) /hpf Urine Mucus Few (FEW) /hpf Urine Opiates Screen Negative (NEGATIVE) Ur Buprenorphine Scrn Negative (NEGATIVE) Ur Oxycodone Screen Negative (NEGATIVE) Urine Methadone Screen Negative (NEGATIVE) Ur Propoxyphene Screen Negative (NEGATIVE) Ur Barbiturates Screen Negative (NEGATIVE) Ur Tricyclics Screen Negative (NEGATIVE) Ur Phencyclidine Scrn Negative (NEGATIVE) Ur Amphetamine Screen Negative (NEGATIVE) U Methamphetamines Scrn Negative (NEGATIVE) U Benzodiazepines Scrn Negative (NEGATIVE) U Cocaine Metab Screen Negative (NEGATIVE) U Marijuana (THC) Screen Negative (NEGATIVE) Ethyl Alcohol 0.10 (0.00) gm% 07/06/17 Range/Units 16:36 WBC (4.23-9.07) K/mm3 RBC (4.63-6.08) M/mm3 Hgb (13.7-17.5) gm/L Hct (40.1-51.0) % MCV (79.0-92.2) fl MCH (25.7-32.2) pg MCHC (32.2-35.5) g/dl RDW Std Deviation (35.1-43.9) fL Plt Count (163-337) K/mm3 MPV (9.4-12.3) fl Neutrophils % (Manual) (40-60) % Band Neutrophils % (0-10) % Lymphocytes % (Manual) (20-40) % Atypical Lymphs % % Monocytes % (Manual) (2-10) % Eosinophils % (Manual) (0.8-7.0) % Basophils % (Manual) (0.2-1.2) Platelet Estimate RBC Morph Comment PT (8.0-13.0) SECONDS INR APTT (22-36) SECONDS Sodium (136-145) mEq/L Potassium (3.5-5.1) mEq/L Chloride (98-107) mEq/L Carbon Dioxide (21-32) mEq/L Anion Gap (5-15) BUN (7-18) mg/dL Creatinine (0.7-1.3) mg/dL Est Cr Clr Drug Dosing mL/min Estimated GFR (MDRD) (>60) mL/min BUN/Creatinine Ratio (14-18) Glucose (74-106) mg/dL Calcium (8.5-10.1) mg/dL Magnesium (1.8-2.4) mg/dl Total Bilirubin (0.2-1.0) mg/dL GGT (15-85) U/L AST (15-37) U/L ALT (16-63) U/L Alkaline Phosphatase (46-116) U/L Ammonia < 10 L (11-32) umol/L Troponin I (0.00-0.056) ng/mL NT-Pro-B Natriuret Pep (0-125) pg/mL Total Protein (6.4-8.2) g/dl Albumin (3.4-5.0) g/dl Globulin gm/dL Albumin/Globulin Ratio (1-2) Lipase (73-393) U/L Urine Color (Yellow) Urine Appearance (Clear) Urine pH (5.0-8.0) Ur Specific Roark (1.005-1.030) Urine Protein (Negative) Urine Glucose (UA) (Negative) Urine Ketones (Negative) Urine Occult Blood (Negative) Urine Nitrite (Negative) Urine Bilirubin (Negative) Urine Urobilinogen (0.2-1.0) Ur Leukocyte Esterase (Negative) Urine RBC (0-5) /hpf Urine WBC (0-5) /hpf Ur Epithelial Cells (0-5) /hpf Urine Bacteria (FEW) /hpf Urine Mucus (FEW) /hpf Urine Opiates Screen (NEGATIVE) Ur Buprenorphine Scrn (NEGATIVE) Ur Oxycodone Screen (NEGATIVE) Urine Methadone Screen (NEGATIVE) Ur Propoxyphene Screen (NEGATIVE) Ur Barbiturates Screen (NEGATIVE) Ur Tricyclics Screen (NEGATIVE) Ur Phencyclidine Scrn (NEGATIVE) Ur Amphetamine Screen (NEGATIVE) U Methamphetamines Scrn (NEGATIVE) U Benzodiazepines Scrn (NEGATIVE) U Cocaine Metab Screen (NEGATIVE) U Marijuana (THC) Screen (NEGATIVE) Ethyl Alcohol (0.00) gm% Meds: Medications Discontinued Medications Generic Name Dose Route Start Last Admin Trade Name Meredith PRN Reason Stop Dose Admin Furosemide 40 mg 07/06/17 15:09 07/06/17 15:16 Lasix IVPUSH 07/06/17 15:10 40 mg NOW ONE Administration Magnesium Sulfate 2 gm/ Premix 50 mls @ 25 mls/hr 07/06/17 17:19 07/06/17 17: 26 IV 07/06/17 19:18 25 mls/hr ONETIME ONE Administration Metoprolol Tartrate 50 mg 07/06/17 17:06 07/06/17 17:17 Lopressor PO 07/06/17 17:07 50 mg ONETIME ONE Administration Potassium Chloride 40 meq 07/06/17 16:18 07/06/17 16:23 Klor-Con M20 PO 07/06/17 16:19 40 meq ONETIME ONE Administration Potassium Chloride 20 meq 07/06/17 19:27 Klor-Con M20 PO 07/06/17 19:28 ONETIME ONE - Re-Assessments/Exams Free Text/Narrative Re-Assessment/Exam: 07/06/17 16:45 Patient is having a good diuretic response after getting Lasix his potassium came back low at 3.1 his magnesium was also low this can be contributing to his dysrhythmias. Telemetry keeps jump in and out of sinus versus A. fib rate 100 to 120s occasionally as high as 140s he is asymptomatic when he does this. Some labs still pending. 07/06/17 17:22 Case discussed with the hospitalist Dr. Mata, the patient will be treated as an outpatient with oral potassium will restart his metoprolol and [facility] he'll receive 2 g of magnesium prior to leaving our department. He would like some for pain for his knees at this point I'll offer him some Tylenol. I did discuss the Tylenol with him and he is okay giving a try and staying on it as an outpatient. His blood alcohol is 0.1 07/06/17 19:30 Patient is doing well we will discharge. He has Lopressor 100 mg at home he can split these at home and take a half a one twice daily we'll give him a prescription for potassium chloride 20 mEq 3 times daily for 3 days. We'll give him Lasix 20 mg daily for 5 days. Departure - Departure Time of Disposition: 17:26 Disposition: Home, Self-Care 01 Clinical Impression: Paroxysmal atrial fibrillation, Hypokalemia, Hypomagnesemia Prescriptions: Furosemide [Lasix] 20 mg PO DAILY #4 tablet Potassium Chloride [Klor-Con M20] 20 meq PO BID #8 tab.er Referrals: Gilda Huang DO [Primary Care Provider] - Forms: ED Department Discharge Additional Instructions: Return to the emergency room with any questions problems worsening symptoms. Follow-up at the [facility] early this next week for recheck the will need to recheck your potassium and magnesium. Discuss with them that you were noted to be back in atrial fibrillation here in the emergency room and discussed restarting your anticoagulation. Discussed the ongoing alcoholism and further treatment for this. Restart your Lopressor. Apparently you have 100 mg tablets at home take one half twice daily.. You been given a prescription for furosemide, or Lasix, this is a water pill take one the next 4 mornings. Your potassium was noted to be low and he'll take oral potassium for the next 4 days as well one tablet twice daily.
[2017-07-06] MEDS ORDERED: Furosemide 40 MG/4 ML VIAL IVPUSH ONE (15:09)
--- NOTE | 2017-07-06 15:42 | CR ---
Chest: Portable view of the chest was obtained. Comparison: Prior chest CT of 11/09/16 is available. Chest x-ray of 11/08/16 is also available. Left hemidiaphragm is slightly elevated believed to be chronic. Lungs are clear with no acute infiltrates. Heart size is normal. Tortuous thoracic aorta is seen. Bony structures are grossly intact. Impression: 1. Nothing acute is appreciated on portable chest x-ray. Diagnostic code #2
[2017-07-06] MEDS ORDERED: Potassium Chloride 20 MEQ Tab.ER PO ONE ×2 (16:18→19:27)
[2017-07-06] MEDS ORDERED: Metoprolol Tartrate 50 MG Tab PO ONE (17:06)
[2017-07-06 17:18] VITALS: BP 125/103
[2017-07-06] MEDS ORDERED: Magnesium Sulfate/Water 2 GM in Premix Bag 1 BAG IV ONE (17:19)
== END 2017-07-06 20:00 | disposition home or self-care (01) ==
LOC: JD.ED 14:21
DX: I48.0 Paroxysmal atrial fibrillation (principal); E87.6 Hypokalemia; E83.42 Hypomagnesemia; R60.0 Localized edema; I10 Essential (primary) hypertension; E78.00 Pure hypercholesterolemia, unspecified; J44.9 Chronic obstructive pulmonary disease, unspecified; K21.9 Gastro-esophageal reflux disease without esophagitis; F17.210 Nicotine dependence, cigarettes, uncomplicated; Z79.899 Other long term (current) drug therapy
CPT/HCPCS: 36415; 71010; 80053; 80306; 81001; 82140; 82977; 83690; 83735; 83880; 84484; 85025; 85610; 85730; 96365; 96366; 96375; 99284; A9270; G0480; J1940; 93010; J3475

== ENCOUNTER 2017-09-26 11:12 | Inpatient (IN) | payer OTHER ==
[2017-09-26] MEDS ORDERED: Sodium Chloride 0.9% 10 ML Syringe FLUSH PRN (11:27)
[2017-09-26] MEDS ORDERED: Adenosine 6 MG/2 ML SDV IVPUSH ONE (11:28)
[2017-09-26] MEDS ORDERED: Adenosine 12 MG/4 ML SDV IVPUSH ONE (11:29)
[2017-09-26] MEDS ORDERED: Midazolam 1 MG/ML 2 ML SDV IVPUSH ONE (11:29)
[2017-09-26] MEDS ORDERED: Sodium Chloride 0.9% 1,000 ML IV SCH (11:30)
[2017-09-26] MEDS ORDERED: Diltiazem 25 MG/5 ML SDV ONE (11:32)
[2017-09-26] MEDS ORDERED: Diltiazem 125 MG in Sodium Chloride 0.9% 100 ML IV SCH (11:45)
[2017-09-26] MEDS ORDERED: Diltiazem 25 MG/5 ML SDV IVPUSH ONE (11:45)
--- NOTE | 2017-09-26 11:51 | CR ---
Chest: Portable view of the chest was obtained. Comparison: Prior chest x-ray of 07/06/17. Hiatal hernia is noted. Heart size is normal. Upper mediastinum is normal. Patchy increased density within right upper and right lower lung are seen. Left lung is clear. Bony structures are grossly intact. Impression: 1. Patchy density within the upper right lung and right lower lung most likely representing pneumonia. 2. Other incidental findings. Diagnostic code #3
[2017-09-26] MEDS: Diltiazem 125 MG in Sodium Chloride 0.9% 100 ML IV SCH (11:56)
[2017-09-26] MEDS ORDERED: Levofloxacin/Dextrose 5%-Water 750 MG in Premix Bag 1 BAG IV ONE (12:55)
--- NOTE | 2017-09-26 14:16 | EDM.PDOC ---
ED HPI GENERAL MEDICAL PROBLEM - General Chief Complaint: Cardiovascular Problem Stated Complaint: [facility] Time Seen by Provider: 09/26/17 11:27 Source of Information: Reports: Patient History Limitations: Reports: No Limitations - History of Present Illness INITIAL COMMENTS - FREE TEXT/NARRATIVE: The patient presents by ambulance with severe chest pain and shortness of breath. EMS came to get him and his heart rate is fast. They gave him aspirin and started an IV. He says the pain has been there since yesterday and it got worse this morning. He has fever and chills. He does admit to drinking very heavy the past week. He has a history of alcoholism. He also has a history of A-fib. I found that out later from his chart. He has been coughing also. He has nausea but no vomiting. Onset: Gradual Duration: Day(s): (Yesterday) Location: Reports: Chest Quality: Reports: Sharp Severity: Severe Improves with: Reports: None Worsens with: Reports: None Associated Symptoms: Reports: Chest Pain, Cough, Fever/Chills, Shortness of Breath. Denies: Headaches, Nausea/Vomiting - Related Data Allergies Allergy/AdvReac Type Severity Reaction Status Date / Time No Known Allergies Allergy Verified 11/08/16 19:35 Home Meds: Home Meds Omeprazole 20 mg PO BID 07/07/16 [History] Furosemide [Lasix] 20 mg PO DAILY #4 tablet 07/06/17 [Rx] Potassium Chloride [Klor-Con M20] 20 meq PO BID #8 tab.er 07/06/17 [Rx] Past Medical History - Past Health History Medical/Surgical History: Denies Medical/Surgical History HEENT History: Reports: Cataract Cardiovascular History: Reports: Afib, High Cholesterol, Hypertension Other Cardiovascular History: pt is admitted this time with a-fib/RVR Respiratory History: Reports: COPD Other Respiratory History: 07/24/16 admitted with pneumonia Gastrointestinal History: Reports: GERD Genitourinary History: Reports: Renal Calculus Musculoskeletal History: Reports: Fracture (right foot) Other Musculoskeletal History: rigth foot fracture 20 yrs ago Neurological History: Reports: Other (See Below) Other Neuro History: With withdrawal for alcohol Psychiatric History: Reports: Addiction Endocrine/Metabolic History: Reports: Obesity/BMI 30+ Hematologic History: Reports: None Oncologic (Cancer) History: Reports: None - Infectious Disease History Infectious Disease History: Reports: Hepatitis C, MRSA Other Infectious Disease History: Hep C per Dx Jayshree Ponce hospitalist/[place], 06/2016. - Past Surgical History Musculoskeletal Surgical History: Reports: ORIF, Other (See Below) Social & Family History - Family History Family Medical History: Noncontributory Neurological: Reports: CVA Endocrine/Metabolic: Reports: Diabetes, type II Hematologic: Reports: Other (See Below) Other Hematologic Family History: hepatitias c Immunologic: Reports: None Oncologic: Reports: Leukemia - Tobacco Use Smoking Status *Q: Current Some Day Smoker Years of Tobacco use: 44 Packs/Tins Daily: 0.5 Used Tobacco, but Quit: No Month Tobacco Last Used: september Second Hand Smoke Exposure: No - Caffeine Use Caffeine Use: Reports: Soda - Alcohol Use Days Per Week of Alcohol Use: 7 Number of Drinks Per Day: 11 Total Drinks Per Week: 77 - Recreational Drug Use Recreational Drug Use: Yes Drug Use in Last 12 Months: Yes Recreational Drug Type: Reports: Benzodiazepines, Cocaine, Heroin, Oxycodone Other Recreational Drug Type: used these drugs many years ago; bought some drugs from someone and does not know what he brought-thought it was valium Recreational Drug Use Frequency: Not Used In Over 3 Months - Living Situation & Occupation Living situation: Reports: , Alone Occupation: Unemployed ED ROS GENERAL - Review of Systems Review Of Systems: See Below Constitutional: Reports: Fever, Chills HEENT: Reports: No Symptoms Respiratory: Reports: Shortness of Breath, Cough Cardiovascular: Reports: Chest Pain Endocrine: Reports: No Symptoms GI/Abdominal: Reports: No Symptoms : Reports: No Symptoms Musculoskeletal: Reports: No Symptoms ED EXAM, GENERAL - Physical Exam Exam: See Below Exam Limited By: No Limitations General Appearance: Alert, Severe Distress Ears: Normal External Exam Nose: Normal Inspection Head: Atraumatic, Normocephalic Neck: Normal Inspection Respiratory/Chest: No Respiratory Distress, Lungs Clear, Normal Breath Sounds Cardiovascular: No Edema, No Murmur, Tachycardia GI/Abdominal: Soft, Non-Tender, No Organomegaly, No Mass Back Exam: Normal Inspection Extremities: Normal Inspection Neurological: Alert, Oriented, No Motor/Sensory Deficits EKG INTERPRETATION EKG Date: 09/26/17 Time: 11:22 Rhythm: A-Fib Rate (Beats/Min): 175 [place]: Normal QRS: Normal ST-T: Depressed QT: Normal Course - Orders/Labs/Meds Orders: Active Orders 24 hr Category Date Time Status CIWAA Assessment [RC] Q15M Care 09/26/17 14:18 Active CIWAA Assessment [RC] Q1H Care 09/26/17 14:18 Active CIWAA Assessment [RC] Q30M Care 09/26/17 14:18 Active CIWAA Assessment [RC] Q4H Care 09/26/17 14:18 Active Cardiac Monitoring [RC] . DIRECTED Care 09/26/17 11:27 Active EKG Documentation Completion [RC] STAT Care 09/26/17 11:28 Active Height and Weight [RC] DAILY Care 09/26/17 14:18 Active Intake and Output [RC] QSHIFT Care 09/26/17 14:18 Active Notify Provider [RC] PRN Care 09/26/17 14:18 Active Oxygen Therapy [RC] PRN Care 09/26/17 11:27 Active Oxygen Therapy [RC] PRN Care 09/26/17 14:18 Active Peripheral IV Care [RC] . DIRECTED Care 09/26/17 11:27 Active Pulse Oximetry [RC] CONTINUOUS Care 09/26/17 14:18 Active RT Aerosol Therapy [RC] ASDIRECTED Care 09/26/17 14:20 Active Up With Assistance [RC] ASDIRECTED Care 09/26/17 14:18 Active Up ad Sharon [RC] ASDIRECTED Care 09/26/17 14:18 Active VTE/DVT Education [RC] PER UNIT ROUTINE Care 09/26/17 14:18 Active Vital Signs [RC] Q4H Care 09/26/17 14:18 Active Consult to Case Management [CONS] Routine Cons 09/26/17 14:21 Active Consult to Waterproofing Machine Operator [CONS] Routine Cons 09/26/17 14:21 Active Consult to Spiritual Care [CONS] Routine Cons 09/26/17 14:21 Active OT Evaluation and Treatment [CONS] Routine Cons 09/26/17 14:21 Active PT Evaluation and Treatment [CONS] Routine Cons 09/26/17 14:21 Active Respiratory Care Assess and Treatment [CONS] Routine Cons 09/26/17 14:21 Active Regular Diet [DIET] Diet 09/26/17 Lunch Active Chest 2V [CR] AM Exams 09/28/17 05:11 Ordered BASIC METABOLIC PANEL,BMP [CHEM] AM Lab 09/27/17 05:11 Ordered BASIC METABOLIC PANEL,BMP [CHEM] AM Lab 09/28/17 05:11 Ordered BASIC METABOLIC PANEL,BMP [CHEM] AM Lab 09/29/17 05:11 Ordered BASIC METABOLIC PANEL,BMP [CHEM] AM Lab 09/30/17 05:11 Ordered BASIC METABOLIC PANEL,BMP [CHEM] AM Lab 10/01/17 05:11 Ordered BASIC METABOLIC PANEL,BMP [CHEM] AM Lab 10/02/17 05:11 Ordered C-REACTIVE PROTEIN [CHEM] AM Lab 09/27/17 05:11 Ordered C-REACTIVE PROTEIN [CHEM] AM Lab 09/28/17 05:11 Ordered C-REACTIVE PROTEIN [CHEM] AM Lab 09/29/17 05:11 Ordered C-REACTIVE PROTEIN [CHEM] AM Lab 09/30/17 05:11 Ordered C-REACTIVE PROTEIN [CHEM] AM Lab 10/01/17 05:11 Ordered C-REACTIVE PROTEIN [CHEM] AM Lab 10/02/17 05:11 Ordered CBC WITH AUTO DIFF [HEME] AM Lab 09/27/17 05:11 Ordered CBC WITH AUTO DIFF [HEME] AM Lab 09/28/17 05:11 Ordered CBC WITH AUTO DIFF [HEME] AM Lab 09/29/17 05:11 Ordered CBC WITH AUTO DIFF [HEME] AM Lab 09/30/17 05:11 Ordered CBC WITH AUTO DIFF [HEME] AM Lab 10/01/17 05:11 Ordered CBC WITH AUTO DIFF [HEME] AM Lab 10/02/17 05:11 Ordered CULTURE BLOOD [BC] Stat Lab 09/26/17 12:45 Received CULTURE BLOOD [BC] Stat Lab 09/26/17 13:15 Received DRUG SCREEN, URINE [URCHEM] Stat Lab 09/26/17 12:21 Ordered INFLUENZA A+B AG SCREEN [RM] Stat Lab 09/26/17 13:03 Ordered MAGNESIUM [CHEM] AM Lab 09/27/17 05:11 Ordered MAGNESIUM [CHEM] AM Lab 09/28/17 05:11 Ordered MAGNESIUM [CHEM] AM Lab 09/29/17 05:11 Ordered MAGNESIUM [CHEM] AM Lab 09/30/17 05:11 Ordered MAGNESIUM [CHEM] AM Lab 10/01/17 05:11 Ordered MAGNESIUM [CHEM] AM Lab 10/02/17 05:11 Ordered Acetaminophen [Tylenol] Med 09/26/17 14:18 Active 650 mg PO Q4H PRN Acetaminophen/HYDROcodone [Haiku 325-5 MG] Med 09/26/17 14:18 Active 1 tab PO Q4H PRN Albuterol/Ipratropium [DuoNeb 3.0-0.5 MG/3 ML] Med 09/26/17 14:18 Active 3 ml NEB Q4H PRN Bisacodyl [Dulcolax] Med 09/26/17 14:18 Active 5 mg PO DAILY PRN Diltiazem 125 mg Med 09/26/17 12:10 Active Sodium Chloride 0.9% [Normal Saline] 100 ml IV TITRATE Diltiazem [Cardizem CD] Med 09/27/17 09:00 Active 300 mg PO DAILY Docusate Sodium [Colace] Med 09/26/17 14:18 Active 100 mg PO BID PRN Docusate Sodium/Sennosides [Senna Plus] Med 09/26/17 14:18 Active 1 tab PO BID PRN Famotidine [Pepcid] Med 09/26/17 21:00 Active 20 mg PO Q12H Folic Acid Med 09/27/17 09:00 Active 1 mg PO DAILY HYDROmorphone [Dilaudid] Med 09/26/17 14:18 Active 0.25 mg IVPUSH Q2H PRN LORazepam [Ativan] Med 09/26/17 14:18 Active 1 mg IV Q6H PRN LORazepam [Ativan] Med 09/26/17 14:26 Active 2 mg IVPUSH Q4H PRN LORazepam [Ativan] Med 09/26/17 14:26 Active See Protocol IVPUSH Q4H PRN Magnesium Rep Pharmacy to Dose [Pharmacy to Dose - Med 09/26/17 14:30 Active Magnesium Replacement] 1 dose .XX ASDIRECTED Metoprolol Tartrate [Lopressor] Med 09/26/17 14:26 Active 5 mg IVPUSH Q4H PRN Multivitamins,Therapeutic [Thera] Med 09/26/17 15:30 Once 1 each PO ONETIME ONE Nicotine [Habitrol] Med 09/27/17 09:00 Active 21 mg TRDERM DAILY Ondansetron [Zofran] Med 09/26/17 14:18 Active 4 mg IV Q6H PRN Pantoprazole [ProTONIX IV] Med 09/26/17 15:30 Once 40 mg IV ONETIME ONE Piperacillin/Tazobactam [Zosyn] 4.5 gm Med 09/26/17 14:30 Ordered Sodium Chloride 0.9% [Normal Saline] 100 ml IV Q6H Polyethylene Glycol 3350 [MiraLAX] Med 09/26/17 14:18 Active 17 gm PO DAILY PRN Potassium Rep Pharmacy to Dose [Pharmacy to Dose - Med 09/26/17 14:30 Active Potassium Replacement] 1 dose .XX ASDIRECTED Promethazine [Phenergan] 12.5 mg Med 09/26/17 14:18 Active Sodium Chloride 0.9% [Normal Saline] 50 ml IV Q6H QUEtiapine [SEROquel] Med 09/26/17 21:00 Active 50 mg PO BEDTIME Remove Patch Med 09/28/17 09:00 Active 0 ea TRDERM DAILY Saccharomyces Boulardii [Florastor] Med 09/26/17 21:00 Active 250 mg PO BID Sodium Chloride 0.9% [Normal Saline] 1,000 ml Med 09/26/17 11:30 Active IV .BOLUS Sodium Chloride 0.9% [Normal Saline] 1,000 ml Med 09/26/17 14:30 Active IV ASDIRECTED Sodium Chloride 0.9% [Saline Flush] Med 09/26/17 11:27 Active 10 ml FLUSH ASDIRECTED PRN Thiamine [Vitamin B-1] Med 09/27/17 09:00 Active 100 mg PO DAILY Thiamine [Vitamin B-1] 200 mg Med 09/26/17 15:30 Active Sodium Chloride 0.9% [Normal Saline] 50 ml IV ONETIME Topiramate [Topamax] Med 09/26/17 21:00 Active 25 mg PO BID cefTAZidime [Fortaz] 1 gm Med 09/26/17 14:30 Ordered Sodium Chloride 0.9% [Normal Saline] 50 ml IV Q8HR cloNIDine [Catapres] Med 09/26/17 14:21 Active 0.1 mg PO Q4H PRN hydrALAZINE [Apresoline] Med 09/26/17 14:26 Active 20 mg IVPUSH Q4H PRN Blood Culture x2 Reflex Set [OM.PC] Stat Oth 02/27/18 12:20 Ordered Peripheral IV Insertion Adult [OM.PC] Stat Oth 09/26/17 11:27 Ordered Seizure Precautions [OM.PC] Routine Oth 09/26/17 14:21 Ordered Resuscitation Status Routine Resus Stat 09/26/17 14:18 Ordered Medication Orders Acetaminophen (Tylenol) 650 mg PO Q4H PRN PRN Reason: Pain (Mild 1-3)/fever Hydrocodone Bitart/Acetaminophen (Haiku 325-5 Mg) 1 tab PO Q4H PRN PRN Reason: Pain (moderate 4-6) Albuterol/Ipratropium (Duoneb 3.0-0.5 Mg/3 Ml) 3 ml NEB Q4H PRN PRN Reason: Shortness Of Breath/wheezing Bisacodyl (Dulcolax) 5 mg PO DAILY PRN PRN Reason: Constipation Clonidine HCl (Catapres) 0.1 mg PO Q4H PRN PRN Reason: Agitation Diltiazem HCl (Cardizem Cd) 300 mg PO DAILY DIAMANTE Docusate Sodium (Colace) 100 mg PO BID PRN PRN Reason: Constipation Famotidine (Pepcid) 20 mg PO Q12H DIAMANTE Folic Acid (Folic Acid) 1 mg PO DAILY DIAMANTE Stop: 09/29/17 09:01 Hydralazine HCl (Apresoline) 20 mg IVPUSH Q4H PRN PRN Reason: Hypertension Hydromorphone HCl (Dilaudid) 0.25 mg IVPUSH Q2H PRN PRN Reason: Pain (severe 7-10) Sodium Chloride (Normal Saline) 1,000 mls @ 1,000 mls/hr IV .BOLUS DIAMANTE Last Admin: 09/26/17 11:47 Dose: 1,000 mls/hr Diltiazem HCl 125 mg/ Sodium (Chloride) 125 mls @ 5 mls/hr IV TITRATE DIAMANTE; 5 MG /HR PRN Reason: Protocol Last Titration: 09/26/17 14:27 Dose: 10 mg/hr, 10 mls/hr Admin: 09/26/17 11:56 Dose: 5 mg/hr, 5 mls/hr Promethazine HCl 12.5 mg/ (Sodium Chloride) 50.5 mls @ 100 mls/hr IV Q6H PRN PRN Reason: Nausea/Vomiting Sodium Chloride (Normal Saline) 1,000 mls @ 250 mls/hr IV ASDIRECTED [facility] Thiamine HCl 200 mg/ Sodium (Chloride) 52 mls @ 100 mls/hr IV ONETIME ONE Stop: 09/26/17 16:01 Ceftazidime 1 gm/ Sodium (Chloride) 50 mls @ 100 mls/hr IV Q8HR [facility] Piperacillin Sod/Tazobactam (Sod 4.5 gm/ Sodium Chloride) 100 mls @ 33.333 mls/ hr IV Q6H [facility] Lorazepam (Ativan) 1 mg IV Q6H PRN PRN Reason: Nausea/Vomiting Lorazepam (Ativan) 2 mg IVPUSH Q4H PRN PRN Reason: Seizures Lorazepam (Ativan) 0 mg IVPUSH Q4H PRN; Protocol PRN Reason: Withdrawal Symptoms Magnesium Sulfate (Pharmacy To Dose - Magnesium Replacement) 1 dose .XX ASDIRECTED [facility] Metoprolol Tartrate (Lopressor) 5 mg IVPUSH Q4H PRN PRN Reason: Tachycardia Miscellaneous Information (Remove Patch) 0 ea TRDERM DAILY [facility] Multivitamins (Thera) 1 each PO ONETIME ONE Stop: 09/26/17 15:31 Nicotine (Habitrol) 21 mg TRDERM DAILY [facility] Ondansetron HCl (Zofran) 4 mg IV Q6H PRN PRN Reason: Nausea/Vomiting Pantoprazole Sodium (Protonix Iv) 40 mg IV ONETIME ONE Stop: 09/26/17 15:31 Polyethylene Glycol (Miralax) 17 gm PO DAILY PRN PRN Reason: Constipation Potassium Chloride (Pharmacy To Dose - Potassium Replacement) 1 dose .XX ASDIRECTED [facility] Quetiapine Fumarate (Seroquel) 50 mg PO BEDTIME [facility] Saccharomyces Boulardii (Florastor) 250 mg PO BID [facility] Senna/Docusate Sodium (Senna Plus) 1 tab PO BID PRN PRN Reason: Constipation Sodium Chloride (Saline Flush) 10 ml FLUSH ASDIRECTED PRN PRN Reason: Keep Vein Open Last Admin: 09/26/17 11:46 Dose: 10 ml Thiamine HCl (Vitamin B-1) 100 mg PO DAILY [facility] Topiramate (Topamax) 25 mg PO BID [facility] Labs: Laboratory Tests 09/26/17 09/26/17 09/26/17 Range/Units 11:20 11:20 11:20 WBC 18.02 H (4.23-9.07) K/mm3 RBC 4.88 (4.63-6.08) M/mm3 Hgb 15.3 (13.7-17.5) gm/L Hct 43.0 (40.1-51.0) % MCV 88.1 (79.0-92.2) fl MCH 31.4 (25.7-32.2) pg MCHC 35.6 H (32.2-35.5) g/dl RDW Std Deviation 42.4 (35.1-43.9) fL Plt Count 121 L (163-337) K/mm3 MPV 9.7 (9.4-12.3) fl Neut % (Auto) 88.3 H (34.0-67.9) % Lymph % (Auto) 7.2 L (21.8-53.1) % [place] % (Auto) 4.1 L (5.3-12.2) % Eos % (Auto) 0 L (0.8-7.0) Baso % (Auto) 0.1 (0.1-1.2) % Neut # (Auto) 15.93 H (1.78-5.38) K/mm3 Lymph # (Auto) 1.29 L (1.32-3.57) K/mm3 [place] # (Auto) 0.73 (0.30-0.82) K/mm3 Eos # (Auto) 0.00 L (0.04-0.54) K/mm3 Baso # (Auto) 0.01 (0.01-0.08) K/mm3 Manual Slide Review Abnormal smear D-Dimer, Quantitative 0.50 (0.19-0.59) mg/L Sodium 135 L (136-145) mEq/L Potassium 2.6 L (3.5-5.1) mEq/L Chloride 98 (98-107) mEq/L Carbon Dioxide 19 L (21-32) mEq/L Anion Gap 20.6 H (5-15) BUN 8 (7-18) mg/dL Creatinine 1.2 (0.7-1.3) mg/dL Est Cr Clr Drug Dosing TNP Estimated GFR (MDRD) > 60 (>60) mL/min BUN/Creatinine Ratio 6.7 L (14-18) Glucose 187 H (74-106) mg/dL Lactic Acid (0.4-2.0) mmol/L Calcium 8.2 L (8.5-10.1) mg/dL Total Bilirubin 1.0 (0.2-1.0) mg/dL AST 53 H (15-37) U/L ALT 50 (16-63) U/L Alkaline Phosphatase 72 (46-116) U/L Troponin I < 0.017 (0.00-0.056) ng/mL NT-Pro-B Natriuret Pep (0-125) pg/mL Total Protein 7.1 (6.4-8.2) g/dl Albumin 3.5 (3.4-5.0) g/dl Globulin 3.6 gm/dL Albumin/Globulin Ratio 1.0 (1-2) Ethyl Alcohol (0.00) gm% 09/26/17 09/26/17 09/26/17 Range/Units 11:20 11:20 12:45 WBC (4.23-9.07) K/mm3 RBC (4.63-6.08) M/mm3 Hgb (13.7-17.5) gm/L Hct (40.1-51.0) % MCV (79.0-92.2) fl MCH (25.7-32.2) pg MCHC (32.2-35.5) g/dl RDW Std Deviation (35.1-43.9) fL Plt Count (163-337) K/mm3 MPV (9.4-12.3) fl Neut % (Auto) (34.0-67.9) % Lymph % (Auto) (21.8-53.1) % [place] % (Auto) (5.3-12.2) % Eos % (Auto) (0.8-7.0) Baso % (Auto) (0.1-1.2) % Neut # (Auto) (1.78-5.38) K/mm3 Lymph # (Auto) (1.32-3.57) K/mm3 [place] # (Auto) (0.30-0.82) K/mm3 Eos # (Auto) (0.04-0.54) K/mm3 Baso # (Auto) (0.01-0.08) K/mm3 Manual Slide Review D-Dimer, Quantitative (0.19-0.59) mg/L Sodium (136-145) mEq/L Potassium (3.5-5.1) mEq/L Chloride (98-107) mEq/L Carbon Dioxide (21-32) mEq/L Anion Gap (5-15) BUN (7-18) mg/dL Creatinine (0.7-1.3) mg/dL Est Cr Clr Drug Dosing Estimated GFR (MDRD) (>60) mL/min BUN/Creatinine Ratio (14-18) Glucose (74-106) mg/dL Lactic Acid 3.5 H (0.4-2.0) mmol/L Calcium (8.5-10.1) mg/dL Total Bilirubin (0.2-1.0) mg/dL AST (15-37) U/L ALT (16-63) U/L Alkaline Phosphatase (46-116) U/L Troponin I (0.00-0.056) ng/mL NT-Pro-B Natriuret Pep 249 H (0-125) pg/mL Total Protein (6.4-8.2) g/dl Albumin (3.4-5.0) g/dl Globulin gm/dL Albumin/Globulin Ratio (1-2) Ethyl Alcohol 0.04 (0.00) gm% Meds: Medications Generic Name Dose Route Start Last Admin Trade Name Freq PRN Reason Stop Dose Admin Acetaminophen 650 mg 09/26/17 14:18 Tylenol PO Q4H PRN Pain (Mild 1-3)/fever Hydrocodone Bitart/Acetaminophen 1 tab 09/26/17 14:18 Haiku 325-5 Mg PO Q4H PRN Pain (moderate 4-6) Albuterol/Ipratropium 3 ml 09/26/17 14:18 Duoneb 3.0-0.5 Mg/3 Ml NEB Q4H PRN Shortness Of Breath/wheezing Bisacodyl 5 mg 09/26/17 14:18 Dulcolax PO DAILY PRN Constipation Clonidine HCl 0.1 mg 09/26/17 14:21 Catapres PO Q4H PRN Agitation Diltiazem HCl 300 mg 09/27/17 09:00 Cardizem Cd PO DAILY DIAMANTE Docusate Sodium 100 mg 09/26/17 14:18 Colace PO BID PRN Constipation Famotidine 20 mg 09/26/17 21:00 Pepcid PO Q12H DIAMANTE Folic Acid 1 mg 09/27/17 09:00 Folic Acid PO 09/29/17 09:01 DAILY [facility] Hydralazine HCl 20 mg 09/26/17 14:26 Apresoline IVPUSH Q4H PRN Hypertension Hydromorphone HCl 0.25 mg 09/26/17 14:18 Dilaudid IVPUSH Q2H PRN Pain (severe 7-10) Sodium Chloride 1,000 mls @ 1,000 mls/hr 09/26/17 11:30 09/26/17 11:47 Normal Saline IV 1,000 mls/hr .BOLUS DIAMANTE Administration Diltiazem HCl 125 mg/ Sodium 125 mls @ 5 mls/hr 09/26/17 12:10 09/26/17 14:27 Chloride IV 10 mg/hr TITRATE DIAMANTE 10 mls/hr Protocol Titration 5 MG/HR Promethazine HCl 12.5 mg/ 50.5 mls @ 100 mls/hr 09/26/17 14:18 Sodium Chloride IV Q6H PRN Nausea/Vomiting Sodium Chloride 1,000 mls @ 250 mls/hr 09/26/17 14:30 Normal Saline IV ASDIRECTED [facility] Thiamine HCl 200 mg/ Sodium 52 mls @ 100 mls/hr 09/26/17 15:30 Chloride IV 09/26/17 16:01 ONETIME ONE Ceftazidime 1 gm/ Sodium 50 mls @ 100 mls/hr 09/26/17 14:30 Chloride IV Q8HR [facility] Piperacillin Sod/Tazobactam 100 mls @ 33.333 mls/hr 09/26/17 14:30 Sod 4.5 gm/ Sodium Chloride IV Q6H [facility] Lorazepam 1 mg 09/26/17 14:18 Ativan IV Q6H PRN Nausea/Vomiting Lorazepam 2 mg 09/26/17 14:26 Ativan IVPUSH Q4H PRN Seizures Lorazepam 0 mg 09/26/17 14:26 Ativan IVPUSH Q4H PRN Withdrawal Symptoms Protocol Magnesium Sulfate 1 dose 09/26/17 14:30 Pharmacy To Dose - Magnesium Replacement .XX ASDIRECTED [facility] Metoprolol Tartrate 5 mg 09/26/17 14:26 Lopressor IVPUSH Q4H PRN Tachycardia Miscellaneous Information 0 ea 09/28/17 09:00 Remove Patch TRDERM DAILY [facility] Multivitamins 1 each 09/26/17 15:30 Thera PO 09/26/17 15:31 ONETIME ONE Nicotine 21 mg 09/27/17 09:00 Habitrol TRDERM DAILY [facility] Ondansetron HCl 4 mg 09/26/17 14:18 Zofran IV Q6H PRN Nausea/Vomiting Pantoprazole Sodium 40 mg 09/26/17 15:30 Protonix Iv IV 09/26/17 15:31 ONETIME ONE Polyethylene Glycol 17 gm 09/26/17 14:18 Miralax PO DAILY PRN Constipation Potassium Chloride 1 dose 09/26/17 14:30 Pharmacy To Dose - Potassium Replacement .XX ASDIRECTED [facility] Quetiapine Fumarate 50 mg 09/26/17 21:00 Seroquel PO BEDTIME [facility] Saccharomyces Boulardii 250 mg 09/26/17 21:00 Florastor PO BID [facility] Senna/Docusate Sodium 1 tab 09/26/17 14:18 Senna Plus PO BID PRN Constipation Sodium Chloride 10 ml 09/26/17 11:27 09/26/17 11:46 Saline Flush FLUSH 10 ml ASDIRECTED PRN Administration Keep Vein Open Thiamine HCl 100 mg 09/27/17 09:00 Vitamin B-1 PO DAILY [facility] Topiramate 25 mg 09/26/17 21:00 Topamax PO BID [facility] Discontinued Medications Generic Name Dose Route Start Last Admin Trade Name Freq PRN Reason Stop Dose Admin Adenosine 6 mg 09/26/17 11:28 09/26/17 11:19 Adenocard IVPUSH 09/26/17 11:29 6 mg NOW ONE Administration Adenosine 12 mg 09/26/17 11:29 09/26/17 11:20 Adenocard IVPUSH 09/26/17 11:30 12 mg NOW ONE Administration Diltiazem HCl Confirm 09/26/17 11:32 09/26/17 11:42 Diltiazem Administered 09/26/17 11:33 Not Given Dose 25 mg .ROUTE .STK-MED ONE Diltiazem HCl 20 mg 09/26/17 11:45 09/26/17 11:25 Diltiazem IVPUSH 09/26/17 11:46 20 mg ONETIME ONE Administration Diltiazem HCl 125 mg/ Sodium 125 mls @ 5 mls/hr 09/26/17 11:45 Chloride IV TITRATE DIAMANTE Protocol 5 MG/HR Levofloxacin/Dextrose 750 mg/ 150 mls @ 100 mls/hr 09/26/17 12:55 09/26/17 13 :05 Premix IV 09/26/17 14:24 100 mls/hr ONETIME ONE Administration Midazolam HCl 2 mg 09/26/17 11:29 09/26/17 11:21 Versed 1 Mg/Ml IVPUSH 09/26/17 11:30 2 mg ONETIME ONE Administration - Re-Assessments/Exams Free Text/Narrative Re-Assessment/Exam: 09/26/17 14:19 A medical alert was called and the patient was tachycardic with a heart rate over 180. He was symptomatic so I ordered synchronized cardioversion at 100 joules. That did not control his rate. I then gave him versed 2mg IV and then synchronized cardiverted him at 120 joules. That did not convert him so I ordered adenisine 6mg and then 12mgs IV. That did slow him down enough to see that he is in A-fib. I then ordered a cardizem bolus of 20mg IV and then a drip at 10mg IV/hr. That did slow him down and his pain is better. His EKG shows A-fib with RVR and no acute changes. His CXR shows infiltrates in the upper and lower right lobes. I ordered blood cultures and ordered levaquin 750mg IV. His WBC was elevated at 18.02. His D-dimer was negative. His K was low at 2.6. His Na is low at 135. His anion gap is elevated at 20.6. His glucose was elevated at 187. His lactic acid was elevated at 3.5. His AST was elevated at 53. His troponin was negative. His ETOH was elevated at 0.04. He has pneumonia and A-fib with RVR. I called Dr Dickey and he agreed to the admission. Departure - Departure Time of Disposition: 14:55 Disposition: Admitted As Inpatient 65 Condition: Poor Clinical Impression: Hypokalemia, Atrial fibrillation with RVR Pneumonia Qualifiers: Pneumonia type: aspiration pneumonia Aspiration pneumonia type: unspecified Laterality: right Lung location: lower lobe of lung Qualified Code(s): J69.0 - Pneumonitis due to inhalation of food and vomit Referrals: Gilda Huang DO [Primary Care Provider] - Forms: ED Department Discharge - My Orders Last 24 Hours: My Active Orders 09/26/17 11:27 Cardiac Monitoring [RC] . DIRECTED Oxygen Therapy [RC] PRN Peripheral IV Care [RC] . DIRECTED Sodium Chloride 0.9% [Saline Flush] 10 ml FLUSH ASDIRECTED PRN Peripheral IV Insertion Adult [OM.PC] Stat 09/26/17 11:28 EKG Documentation Completion [RC] STAT 09/26/17 11:30 Sodium Chloride 0.9% [Normal Saline] 1,000 ml IV .BOLUS 09/26/17 12:10 Diltiazem 125 mg Sodium Chloride 0.9% [Normal Saline] 100 ml IV TITRATE 09/26/17 13:03 INFLUENZA A+B AG SCREEN [RM] Stat - Assessment/Plan Last 24 Hours: My Active Orders 09/26/17 11:27 Cardiac Monitoring [RC] . DIRECTED Oxygen Therapy [RC] PRN Peripheral IV Care [RC] . DIRECTED Sodium Chloride 0.9% [Saline Flush] 10 ml FLUSH ASDIRECTED PRN Peripheral IV Insertion Adult [OM.PC] Stat 09/26/17 11:28 EKG Documentation Completion [RC] STAT 09/26/17 11:30 Sodium Chloride 0.9% [Normal Saline] 1,000 ml IV .BOLUS 09/26/17 12:10 Diltiazem 125 mg Sodium Chloride 0.9% [Normal Saline] 100 ml IV TITRATE 09/26/17 13:03 INFLUENZA A+B AG SCREEN [RM] Stat
--- NOTE | 2017-09-26 14:17 | PCM.HP ---
H&P History of Present Illness - General Date of Service: 09/26/17 Admit Problem/Dx: Atrial Fibrillation and Aspiration Pneumonia Source of Information: Patient, Old Records, Provider, RN Notes Reviewed History Limitations: Reports: Intoxication, Physical Impairment - History of Present Illness Initial Comments - Free Text/Narative: This is a 57 yo [place] [employer] with past medical hx/o COPD, GERD, Hx/o Hepatitis, Hx/o DTs, Hx/o Substance Abuse, Hx/o Smoking and Medical Non-Compliance who comes in for evaluation of worsening chest pain associated with shortness of breath that started yesterday and was found in atrial fibrillation with rapid ventricular rate as high as 180s. Patient carries a hx/o chronic atrial fibrillation on Warfarin. He is also by hx a chronic alcoholic. He has been drinking alcohol heavily about > 10 bottles (small) of fireball. When asked why he was drinking so much, he states "I'm bored" and got "nothing else to do". His last intake was this morning at about 10 am. He was having shakes/tremors and felt he could use 2 extra fireball to make it go away. In ED, he was treated electrically with sync cardioversion to control his fast heart rate. He was also treated with Adenosin 6 mg and then 12 mg IV to slow him down and thereafter he was treated with Cardizem 20 mg IVP bolus and subsequently put on a drip at 10 mg cc/hr before he was sent to the unit for further management. His initial work up in ED shows a CBC remarkable for WBC of 18.02, MCHC of 35.6 , platelet count of 121, neutrophils of 80.2%, lymphocytes of 7.2%, and monocytes of 4.1%. His chemistry is remarkable for sodium of 135, potassium of 2.6, carbon dioxide of 19, anion gap at 20.6, glucose of 187, lactic acid of 2.5 , calcium of 8.2, AST of 53, and proBNP of 249. His d-dimer and troponin 1 are both within normal limits. His UA is positive for opiates. His blood alcohol level is 0.04. His chest x-ray shows right-sided pulmonary infiltrate. Patient is being admitted for atrial fibrillation with RVR, aspiration pneumonia , alcohol abuse with withdrawal symptoms. He is full code. - Related Data Allergies/Adverse Reactions: Allergies Allergy/AdvReac Type Severity Reaction Status Date / Time No Known Allergies Allergy Verified 11/08/16 19:35 Home Medications: Home Meds Omeprazole 20 mg PO BID 07/07/16 [History] Ferrous Sulfate [Iron] 325 mg PO DAILY 09/26/17 [History] Folic Acid 1 mg PO DAILY 09/26/17 [History] Lipitor. 09/26/17 [History] Metoprolol Tartrate 50 mg PO BID 09/26/17 [History] Thiamine [Vitamin B-1] 100 mg PO DAILY 09/26/17 [History] Past Medical History - Past Health History Medical/Surgical History: Denies Medical/Surgical History HEENT History: Reports: Cataract Cardiovascular History: Reports: Afib, High Cholesterol, Hypertension Other Cardiovascular History: pt is admitted this time with a-fib/RVR Respiratory History: Reports: COPD Other Respiratory History: 07/24/16 admitted with pneumonia Gastrointestinal History: Reports: GERD Genitourinary History: Reports: Renal Calculus Musculoskeletal History: Reports: Fracture (right foot) Other Musculoskeletal History: rigth foot fracture 20 yrs ago Neurological History: Reports: Other (See Below) Other Neuro History: With withdrawal for alcohol Psychiatric History: Reports: Addiction Endocrine/Metabolic History: Reports: Obesity/BMI 30+ Hematologic History: Reports: None Oncologic (Cancer) History: Reports: None - Infectious Disease History Infectious Disease History: Reports: Hepatitis C, MRSA Other Infectious Disease History: Hep C per Demond Ponce hospitalist/[place], 06/2016. - Past Surgical History Musculoskeletal Surgical History: Reports: ORIF, Other (See Below) Social & Family History - Family History Family Medical History: Noncontributory Neurological: Reports: CVA Endocrine/Metabolic: Reports: Diabetes, type II Hematologic: Reports: Other (See Below) Other Hematologic Family History: hepatitias c Immunologic: Reports: None Oncologic: Reports: Leukemia - Tobacco Use Smoking Status *Q: Current Some Day Smoker Years of Tobacco use: 44 Packs/Tins Daily: 0.5 Used Tobacco, but Quit: No Month Tobacco Last Used: september Second Hand Smoke Exposure: No - Caffeine Use Caffeine Use: Reports: Soda - Alcohol Use Days Per Week of Alcohol Use: 7 Number of Drinks Per Day: 11 Total Drinks Per Week: 77 - Recreational Drug Use Recreational Drug Use: Yes Drug Use in Last 12 Months: Yes Recreational Drug Type: Reports: Benzodiazepines, Cocaine, Heroin, Oxycodone Other Recreational Drug Type: used these drugs many years ago; bought some drugs from someone and does not know what he brought-thought it was valium Recreational Drug Use Frequency: Not Used In Over 3 Months - Living Situation & Occupation Living situation: Reports: , Alone Occupation: Unemployed H&P Review of Systems - Review of Systems: Review Of Systems: See Below General: Reports: Fever, Chills. Denies: Malaise, Weakness, Fatigue HEENT: Reports: No Symptoms Pulmonary: Reports: Shortness of Breath, Cough Cardiovascular: Reports: Chest Pain. Denies: Palpitations, Dyspnea on Exertion , Lightheadedness Gastrointestinal: Denies: Abdominal Pain, Anorexia, Constipation, Diarrhea, Decreased Appetite, Distension, Hematemesis, Nausea, Vomiting Genitourinary: Reports: No Symptoms Musculoskeletal: Reports: No Symptoms Skin: Denies: Cyanosis, Jaundice, Mottled, Pallor, Diaphoresis Psychiatric: Denies: Confusion, Depression, Anxiety, Agitation, Hallucinations, Homicidal Ideation Neurological: Reports: Tremors, Gait Disturbance. Denies: Confusion, Dizziness , Headache, Pre-Existing Deficit, Seizure, Syncope, Difficulty Walking Hematologic/Lymphatic: Reports: No Symptoms Immunologic: Reports: No Symptoms Exam - Exam Exam: See Below - Exam General: Alert, Cooperative, Lethargic HEENT: Conjunctiva Clear, Hearing Intact, Mucosa Moist & [place], Nares Patent, Normal Nasal Septum, Posterior Pharynx Clear, Pupils Equal, Pupils Reactive. No : EOMI Neck: Supple, Trachea Midline, Full Range of Motion, Other (short and thick) Lungs: Normal Respiratory Effort, Decreased Breath Sounds, Rhonchi Cardiovascular: Irregular Rhythm, Other (Irregular rate) GI/Abdominal Exam: Normal Bowel Sounds, Soft, Non-Tender, No Organomegaly, No Distention, No Abnormal Bruit, Other (Obese) (Male) Exam: Deferred Rectal (Males) Exam: Deferred Back Exam: Normal Inspection, Decreased Range of Motion Extremities: Normal Inspection, Normal Range of Motion, Non-Tender, No Pedal Edema, Normal Capillary Refill Peripheral Pulses: 2+: Posterior Tibial (L), Posterior Tibial (R), Dorsalis Pedis (L), Dorsalis Pedis (R) Neuro Extensive - Mental Status: Normal Cognition, Memory Intact, Nl Response to Commands Neuro Extensive - Motor, Sensory, Reflexes: CN II-XII Intact (limited but joint pains but grossly intact), Abnormal Gait Psychiatric: Alert, Normal Affect, Normal Mood, Withdrawal Symptoms (mild hand tremors). No: Anxious, Agitated, Suicidal Ideation, Hallucinations - Patient Data Lab Results Last 24 hrs: Laboratory Results - last 24 hr 09/26/17 09/26/17 09/26/17 Range/Units 11:20 11:20 11:20 WBC 18.02 H (4.23-9.07) K/mm3 RBC 4.88 (4.63-6.08) M/mm3 Hgb 15.3 (13.7-17.5) gm/L Hct 43.0 (40.1-51.0) % MCV 88.1 (79.0-92.2) fl MCH 31.4 (25.7-32.2) pg MCHC 35.6 H (32.2-35.5) g/dl RDW Std Deviation 42.4 (35.1-43.9) fL Plt Count 121 L (163-337) K/mm3 MPV 9.7 (9.4-12.3) fl Neut % (Auto) 88.3 H (34.0-67.9) % Lymph % (Auto) 7.2 L (21.8-53.1) % [place] % (Auto) 4.1 L (5.3-12.2) % Eos % (Auto) 0 L (0.8-7.0) Baso % (Auto) 0.1 (0.1-1.2) % Neut # (Auto) 15.93 H (1.78-5.38) K/mm3 Lymph # (Auto) 1.29 L (1.32-3.57) K/mm3 [place] # (Auto) 0.73 (0.30-0.82) K/mm3 Eos # (Auto) 0.00 L (0.04-0.54) K/mm3 Baso # (Auto) 0.01 (0.01-0.08) K/mm3 Manual Slide Review Abnormal smear D-Dimer, Quantitative 0.50 (0.19-0.59) mg/L Sodium 135 L (136-145) mEq/L Potassium 2.6 L (3.5-5.1) mEq/L Chloride 98 (98-107) mEq/L Carbon Dioxide 19 L (21-32) mEq/L Anion Gap 20.6 H (5-15) BUN 8 (7-18) mg/dL Creatinine 1.2 (0.7-1.3) mg/dL Est Cr Clr Drug Dosing TNP Estimated GFR (MDRD) > 60 (>60) mL/min BUN/Creatinine Ratio 6.7 L (14-18) Glucose 187 H (74-106) mg/dL Lactic Acid (0.4-2.0) mmol/L Calcium 8.2 L (8.5-10.1) mg/dL Total Bilirubin 1.0 (0.2-1.0) mg/dL AST 53 H (15-37) U/L ALT 50 (16-63) U/L Alkaline Phosphatase 72 (46-116) U/L Troponin I < 0.017 (0.00-0.056) ng/mL NT-Pro-B Natriuret Pep (0-125) pg/mL Total Protein 7.1 (6.4-8.2) g/dl Albumin 3.5 (3.4-5.0) g/dl Globulin 3.6 gm/dL Albumin/Globulin Ratio 1.0 (1-2) Ethyl Alcohol (0.00) gm% 09/26/17 09/26/17 09/26/17 Range/Units 11:20 11:20 12:45 WBC (4.23-9.07) K/mm3 RBC (4.63-6.08) M/mm3 Hgb (13.7-17.5) gm/L Hct (40.1-51.0) % MCV (79.0-92.2) fl MCH (25.7-32.2) pg MCHC (32.2-35.5) g/dl RDW Std Deviation (35.1-43.9) fL Plt Count (163-337) K/mm3 MPV (9.4-12.3) fl Neut % (Auto) (34.0-67.9) % Lymph % (Auto) (21.8-53.1) % [place] % (Auto) (5.3-12.2) % Eos % (Auto) (0.8-7.0) Baso % (Auto) (0.1-1.2) % Neut # (Auto) (1.78-5.38) K/mm3 Lymph # (Auto) (1.32-3.57) K/mm3 [place] # (Auto) (0.30-0.82) K/mm3 Eos # (Auto) (0.04-0.54) K/mm3 Baso # (Auto) (0.01-0.08) K/mm3 Manual Slide Review D-Dimer, Quantitative (0.19-0.59) mg/L Sodium (136-145) mEq/L Potassium (3.5-5.1) mEq/L Chloride (98-107) mEq/L Carbon Dioxide (21-32) mEq/L Anion Gap (5-15) BUN (7-18) mg/dL Creatinine (0.7-1.3) mg/dL Est Cr Clr Drug Dosing Estimated GFR (MDRD) (>60) mL/min BUN/Creatinine Ratio (14-18) Glucose (74-106) mg/dL Lactic Acid 3.5 H (0.4-2.0) mmol/L Calcium (8.5-10.1) mg/dL Total Bilirubin (0.2-1.0) mg/dL AST (15-37) U/L ALT (16-63) U/L Alkaline Phosphatase (46-116) U/L Troponin I (0.00-0.056) ng/mL NT-Pro-B Natriuret Pep 249 H (0-125) pg/mL Total Protein (6.4-8.2) g/dl Albumin (3.4-5.0) g/dl Globulin gm/dL Albumin/Globulin Ratio (1-2) Ethyl Alcohol 0.04 (0.00) gm% Result Diagrams: 09/26/17 11:20 09/26/17 11:20 *Q Meaningful Use (ADM) - VTE *Q VTE Criteria *Q: - Stroke *Q Stroke Criteria *Q: - AMI *Q AMI Criteria *Q: Problem List Initiated/Reviewed/Updated: Yes Orders Last 24hrs: Active Orders 24 hr Category Date Time Status Cardiac Monitoring [RC] . DIRECTED Care 09/26/17 11:27 Active EKG Documentation Completion [RC] STAT Care 09/26/17 11:28 Active Oxygen Therapy [RC] PRN Care 09/26/17 11:27 Active Peripheral IV Care [RC] . DIRECTED Care 09/26/17 11:27 Active CULTURE BLOOD [BC] Stat Lab 09/26/17 12:45 Received CULTURE BLOOD [BC] Stat Lab 09/26/17 13:15 Received DRUG SCREEN, URINE [URCHEM] Stat Lab 09/26/17 12:21 Ordered INFLUENZA A+B AG SCREEN [RM] Stat Lab 09/26/17 13:03 Ordered Diltiazem 125 mg Med 09/26/17 12:10 Active Sodium Chloride 0.9% [Normal Saline] 100 ml IV TITRATE Levofloxacin/Dextrose 5%-Water [Levaquin in D5W 750 MG/ Med 09/26/17 12:55 Active 150 ML] 750 mg Premix Bag 1 bag IV ONETIME Sodium Chloride 0.9% [Normal Saline] 1,000 ml Med 09/26/17 11:30 Active IV .BOLUS Sodium Chloride 0.9% [Saline Flush] Med 09/26/17 11:27 Active 10 ml FLUSH ASDIRECTED PRN Blood Culture x2 Reflex Set [OM.PC] Stat Oth 09/26/17 12:20 Ordered Peripheral IV Insertion Adult [OM.PC] Stat Oth 09/26/17 11:27 Ordered Medication Orders Sodium Chloride (Normal Saline) 1,000 mls @ 1,000 mls/hr IV .BOLUS DIAMANTE Last Admin: 09/26/17 11:47 Dose: 1,000 mls/hr Diltiazem HCl 125 mg/ Sodium (Chloride) 125 mls @ 5 mls/hr IV TITRATE DIAMANTE; 5 MG /HR PRN Reason: Protocol Last Admin: 09/26/17 11:56 Dose: 5 mg/hr, 5 mls/hr Levofloxacin/Dextrose 750 mg/ (Premix) 150 mls @ 100 mls/hr IV ONETIME ONE Stop: 09/26/17 14:24 Last Admin: 09/26/17 13:05 Dose: 100 mls/hr Sodium Chloride (Saline Flush) 10 ml FLUSH ASDIRECTED PRN PRN Reason: Keep Vein Open Last Admin: 09/26/17 11:46 Dose: 10 ml Assessment/Plan Comment:: Assessment/Plan: Acute: Atrial Fibrillation with RVR - Carries a hx/o Chronic Atrial Fibrillation and Medical Non-compliance - He was on warfarin last time I took care of him; but it seems he is currently on it - Continue Cardizem drip - Resume home dose BB - Consider oral cardizem if not response to BB once off drip - Xarelto 20 mg po daily for anticoagulation Aspiration Pneumonitis - 2/2 Intoxication - Received IV Levaquin 750 mg x1 in ED - Start IV Zosyn 4.5 mg Q8H and Ceftazidime 1 gram Q8H (Gram Negative and Anaerobes) - Oral Probiotic 250 mg po BID - IS as directed - Aspiration precaution - Serial CXR as needed ETOH Abuse - Acute on chronic - Admits to drinking heavily at least > 10 small bottles of fireball - His last drink was 2 bottles at 10 AM - He drinks because he is "bored" and "nothing else to do" - [facility] protocol - Ativan/Librium/Clonidine/Seroquel/Topamax - Hydralazine and IVP BB for HR/BP control - Ativan for Abortive Seizure and Withdrawal Symptoms - SW and SA consult Hypokalemia - K 2.8 - 2/2 Inadequate intake - Replete and monitor Lactic Acidosis - LA is 3.5 - 2/2 chronic alcoholism - IV hydration Chronic: HTN HLD Chronic Pain GERD Hx/o Hepatitis C and MRSA Hx/o Withdrawal Symptoms Hx/o Renal Stones Hx/o Medical Non-Compliance Hx/o Substance Abuse: Benzo, Cocaine, Heroin, and Oxycodone Hx/o Smoking-quit 2 months ago Plan: Admit to ICU Routine AM Labs [facility] Protocol Resume Home Meds MRSA Screening Aspiration/Fall/Seizure Precautions PT/OT consult DVT/GI PPx: Xarelto and PPI/H2B SW/CM for d/c planning SA consult for Substance Abuse Additional orders as above Code status: 1
[2017-09-26] MEDS ORDERED: Bisacodyl 5 MG Tab PO PRN (14:18)
[2017-09-26] MEDS ORDERED: Ondansetron 4 MG/2 ML SDV IV PRN (14:18)
[2017-09-26] MEDS ORDERED: Acetaminophen/HYDROcodone 325-5 MG Tab PO PRN (14:18)
[2017-09-26] MEDS ORDERED: HYDROmorphone 0.5 MG/0.5 ML SYRINGE IVPUSH PRN (14:18)
[2017-09-26] MEDS ORDERED: Docusate Sodium 100 MG Cap PO PRN (14:18)
[2017-09-26] MEDS ORDERED: Promethazine 12.5 MG in Sodium Chloride 0.9% 50 ML IV PRN (14:18)
[2017-09-26] MEDS ORDERED: Acetaminophen 325 MG Tab PO PRN (14:18)
[2017-09-26] MEDS ORDERED: Polyethylene Glycol 3350 Powder 17 GM Packet PO PRN (14:18)
[2017-09-26] MEDS ORDERED: Albuterol/Ipratropium 3.0-0.5 MG/3 ML Neb Soln NEB PRN (14:18)
[2017-09-26] MEDS ORDERED: cloNIDine 0.1 MG Tab PO PRN (14:21)
[2017-09-26] MEDS ORDERED: hydrALAZINE 20 MG/ML SDV IVPUSH PRN ×2 (14:26→15:28)
[2017-09-26] MEDS ORDERED: Metoprolol Tartrate 5 MG/5 ML SDV IVPUSH PRN ×2 (14:26→15:28)
[2017-09-26] MEDS ORDERED: LORazepam 2 MG/ML SDV IVPUSH PRN (14:26)
[2017-09-26] MEDS ORDERED: chlordiazePOXIDE 25 MG Cap PO ONE ×2 (15:05→19:09)
[2017-09-26] MEDS ORDERED: Topiramate 25 MG Tab PO STA (15:07)
[2017-09-26] MEDS ORDERED: QUEtiapine 25 MG Tab PO ONE (15:14)
[2017-09-26] MEDS ORDERED: Enoxaparin 40 MG/0.4 ML Syringe SUBCUT ONE (15:29)
[2017-09-26] MEDS ORDERED: Multivitamins,Therapeutic Tab PO ONE (15:30)
[2017-09-26] MEDS ORDERED: Pantoprazole 40 MG Vial IV ONE (15:30)
[2017-09-26] MEDS ORDERED: Potassium Chloride 20 MEQ Tab.ER PO ONE (15:31)
[2017-09-26] MEDS ORDERED: Piperacillin/Tazobactam 4.5 GM in Sodium Chloride 0.9% 100 ML IV ONE (16:00)
[2017-09-26] MEDS: LORazepam 2 MG/ML SDV IVPUSH PRN ×3 (17:07→23:06)
[2017-09-26] MEDS ORDERED: Aluminum Hydroxide/Magnesium Hydroxide/Simethicone Susp 30 ML Cup PO PRN (17:22)
[2017-09-26] MEDS: Sodium Chloride 0.9% 1,000 ML IV SCH ×2 (17:38→23:06)
[2017-09-26] MEDS: cefTAZidime 1 GM in Sodium Chloride 0.9% 50 ML IV SCH ×2 (18:01→23:06)
[2017-09-26] MEDS: LORazepam 2 MG/ML SDV IV PRN (18:29)
[2017-09-26] MEDS: Topiramate 25 MG Tab PO SCH (20:19)
[2017-09-26] MEDS: Saccharomyces Boulardii (Probiotic) 250 MG Cap PO SCH (20:19)
[2017-09-26] MEDS: Famotidine 20 MG Tab PO SCH (20:20)
[2017-09-26] MEDS ORDERED: QUEtiapine 25 MG Tab PO SCH (21:00)
[2017-09-26] MEDS ORDERED: Metoprolol Tartrate 50 MG Tab PO SCH ×2 (21:00)
[2017-09-26] MEDS ORDERED: Midazolam 1 MG/ML 5 ML SDV ONE (22:22)
[2017-09-26] MEDS ORDERED: diphenhydrAMINE 50 MG/ML SDV IVPUSH ONE (22:39)
[2017-09-27] MEDS: Piperacillin/Tazobactam 4.5 GM in Sodium Chloride 0.9% 100 ML IV SCH ×2 (00:13→08:33)
[2017-09-27] MEDS: LORazepam 2 MG/ML SDV IVPUSH PRN ×4 (00:16→10:00)
[2017-09-27] MEDS ORDERED: Diltiazem 125 MG/25 ML SDV ONE (01:03)
[2017-09-27] MEDS: Diltiazem 125 MG in Sodium Chloride 0.9% 100 ML IV SCH (01:16)
[2017-09-27] MEDS: Sodium Chloride 0.9% 1,000 ML IV SCH (05:55)
[2017-09-27] MEDS: cefTAZidime 1 GM in Sodium Chloride 0.9% 50 ML IV SCH (07:52)
--- NOTE | 2017-09-27 08:03 | PCM.PN ---
- General Info Date of Service: 09/27/17 Admission Dx/Problem (Free Text): Atrial Fibrillation and Aspiration Pneumonia Subjective Update: Follow Up Functional Status: Reports: Pain Controlled, Tolerating Diet, Ambulating, Urinating. Denies: New Symptoms - Review of Systems General: Denies: Fever, Weakness, Fatigue, Malaise, Chills HEENT: Reports: No Symptoms Pulmonary: Denies: Shortness of Breath Cardiovascular: Denies: Chest Pain Gastrointestinal: Denies: Abdominal Pain, Nausea, Vomiting Genitourinary: Reports: Incontinence Musculoskeletal: Reports: No Symptoms Skin: Denies: Jaundice, Mottled, Pallor, Diaphoresis Neurological: Denies: Confusion, Dizziness, Headache, Seizure, Syncope, Difficulty Walking, Weakness, Gait Disturbance Psychiatric: Denies: Depression, Anxiety, Agitation, Hallucinations Systems Review Comment:: No significant overnight or acute issues. He now converted to sinus rhythm. His CIWA is moderately elevated after medications. His K is 2.8 slightly improved form 2.6. His Mg is 1. He is sedated but respond to verbal calls and able to open his eyes. His blood pressures are stable. - Patient Data Vitals - Most Recent: Last Vital Signs Temp 36.7 C 09/26/17 20:00 Pulse 161 H 09/26/17 15:54 Resp 30 H 09/27/17 04:00 BP 115/74 09/27/17 07:00 Pulse Ox 94 L 09/27/17 04:00 Weight - Most Recent: 113.126 kg I&O - Last 24 Hours: Intake & Output 09/26/17 09/27/17 09/27/17 22:59 06:59 14:59 Intake Total 240 2139 Output Total 1025 Balance -785 2139 Lab Results Last 24 Hours: Laboratory Results - last 24 hr 09/26/17 09/27/17 09/27/17 Range/Units 18:09 06:01 06:01 WBC 13.35 H (4.23-9.07) K/mm3 RBC 3.89 L (4.63-6.08) M/mm3 Hgb 12.3 L (13.7-17.5) gm/L Hct 34.8 L (40.1-51.0) % MCV 89.5 (79.0-92.2) fl MCH 31.6 (25.7-32.2) pg MCHC 35.3 (32.2-35.5) g/dl RDW Std Deviation 42.6 (35.1-43.9) fL Plt Count 61 L (163-337) K/mm3 MPV 10.3 (9.4-12.3) fl Neut % (Auto) 83.4 H (34.0-67.9) % Lymph % (Auto) 11.9 L (21.8-53.1) % [place] % (Auto) 4.0 L (5.3-12.2) % Eos % (Auto) 0.2 L (0.8-7.0) Baso % (Auto) 0.1 (0.1-1.2) % Neut # (Auto) 11.13 H (1.78-5.38) K/mm3 Lymph # (Auto) 1.59 (1.32-3.57) K/mm3 [place] # (Auto) 0.53 (0.30-0.82) K/mm3 Eos # (Auto) 0.03 L (0.04-0.54) K/mm3 Baso # (Auto) 0.01 (0.01-0.08) K/mm3 Manual Slide Review Abnormal smear Sodium 140 (136-145) mEq/L Potassium 2.8 L (3.5-5.1) mEq/L Chloride 108 H (98-107) mEq/L Carbon Dioxide 21 (21-32) mEq/L Anion Gap 13.8 (5-15) BUN 8 (7-18) mg/dL Creatinine 0.9 (0.7-1.3) mg/dL Est Cr Clr Drug Dosing 83.65 mL/min Estimated GFR (MDRD) > 60 (>60) mL/min BUN/Creatinine Ratio 8.9 L (14-18) Glucose 98 (74-106) mg/dL Calcium 7.7 L (8.5-10.1) mg/dL Magnesium 1.0 L (1.8-2.4) mg/dl C-Reactive Protein 14.9 H* (<1.0) mg/dL Free T4 0.97 (0.76-1.46) ng/dL TSH 3rd Generation 0.292 L (0.358-3.74) uIU/mL Urine Opiates Screen Presumptive positive H (NEGATIVE) Ur Buprenorphine Scrn Negative (NEGATIVE) Ur Oxycodone Screen Negative (NEGATIVE) Urine Methadone Screen Negative (NEGATIVE) Ur Propoxyphene Screen Negative (NEGATIVE) Ur Barbiturates Screen Negative (NEGATIVE) Ur Tricyclics Screen Negative (NEGATIVE) Ur Phencyclidine Scrn Negative (NEGATIVE) Ur Amphetamine Screen Negative (NEGATIVE) U Methamphetamines Scrn Negative (NEGATIVE) U Benzodiazepines Scrn Negative (NEGATIVE) U Cocaine Metab Screen Negative (NEGATIVE) U Marijuana (THC) Screen Negative (NEGATIVE) [place] Results Last 24 Hours: Microbiology 09/26/17 18:09 Influenza Type A Antigen Screen - Final Nasal Aspirate, Unspecified NEGATIVE INFLUENZA A VIRUS AG Influenza Type B Antigen Screen - Final NEGATIVE INFLUENZA B VIRUS AG Med Orders - Current: Current Medications Acetaminophen (Tylenol) 650 mg PO Q4H PRN PRN Reason: Pain (Mild 1-3)/fever Hydrocodone Bitart/Acetaminophen ([place] 325-5 Mg) 1 tab PO Q4H PRN PRN Reason: Pain (moderate 4-6) Al Hydroxide/Mg Hydroxide (Mag-Al Plus) 30 ml PO Q4H PRN PRN Reason: Heartburn Last Admin: 09/26/17 17:36 Dose: 30 ml Albuterol/Ipratropium (Duoneb 3.0-0.5 Mg/3 Ml) 3 ml NEB Q4H PRN PRN Reason: Shortness Of Breath/wheezing Bisacodyl (Dulcolax) 5 mg PO DAILY PRN PRN Reason: Constipation Clonidine HCl (Catapres) 0.1 mg PO Q4H PRN PRN Reason: Agitation Diltiazem HCl (Cardizem Cd) 300 mg PO DAILY [facility] Docusate Sodium (Colace) 100 mg PO BID PRN PRN Reason: Constipation Famotidine (Pepcid) 20 mg PO Q12H DIAMANTE Last Admin: 09/26/17 20:20 Dose: 20 mg Ferrous Sulfate (Ferrous Sulfate) 325 mg PO DAILY [facility] Folic Acid (Folic Acid) 1 mg PO DAILY [facility] Hydralazine HCl (Apresoline) 20 mg IVPUSH Q4H PRN PRN Reason: Hypertension Hydromorphone HCl (Dilaudid) 0.25 mg IVPUSH Q2H PRN PRN Reason: Pain (severe 7-10) Diltiazem HCl 125 mg/ Sodium (Chloride) 125 mls @ 5 mls/hr IV TITRATE DIAMANTE; 5 MG /HR PRN Reason: Protocol Last Titration: 09/27/17 03:22 Dose: 15 mg/hr, 15 mls/hr Promethazine HCl 12.5 mg/ (Sodium Chloride) 50.5 mls @ 100 mls/hr IV Q6H PRN PRN Reason: Nausea/Vomiting Sodium Chloride (Normal Saline) 1,000 mls @ 250 mls/hr IV ASDIRECTED [facility] Last Admin: 09/27/17 05:55 Dose: 250 mls/hr Ceftazidime 1 gm/ Sodium (Chloride) 50 mls @ 100 mls/hr IV Q8H [facility] Last Admin: 09/27/17 07:52 Dose: 100 mls/hr Piperacillin Sod/Tazobactam (Sod 4.5 gm/ Sodium Chloride) 100 mls @ 25 mls/hr IV Q8H [facility] Last Admin: 09/27/17 00:13 Dose: 25 mls/hr Lorazepam (Ativan) 1 mg IV Q6H PRN PRN Reason: Nausea/Vomiting Last Admin: 09/26/17 18:29 Dose: 1 mg Lorazepam (Ativan) 2 mg IVPUSH Q4H PRN PRN Reason: Seizures Lorazepam (Ativan) 0 mg IVPUSH Q4H PRN; Protocol PRN Reason: Withdrawal Symptoms Last Admin: 09/27/17 06:04 Dose: 2 mg Magnesium Sulfate (Pharmacy To Dose - Magnesium Replacement) 1 dose .XX ASDIRECTED [facility] Metoprolol Tartrate (Lopressor) 5 mg IVPUSH Q4H PRN PRN Reason: Tachycardia Last Admin: 09/26/17 15:54 Dose: 5 mg Metoprolol Tartrate (Lopressor) 50 mg PO Q12HR [facility] Miscellaneous Information (Remove Patch) 0 ea TRDERM DAILY [facility] Ondansetron HCl (Zofran) 4 mg IV Q6H PRN PRN Reason: Nausea/Vomiting Polyethylene Glycol (Miralax) 17 gm PO DAILY PRN PRN Reason: Constipation Potassium Chloride (Pharmacy To Dose - Potassium Replacement) 1 dose .XX ASDIRECTED [facility] Quetiapine Fumarate (Seroquel) 50 mg PO BEDTIME [facility] Last Admin: 09/26/17 20:18 Dose: 50 mg Rivaroxaban (Xarelto) 20 mg PO DAILY [facility] Saccharomyces Boulardii (Florastor) 250 mg PO BID [facility] Last Admin: 09/26/17 20:19 Dose: 250 mg Senna/Docusate Sodium (Senna Plus) 1 tab PO BID PRN PRN Reason: Constipation Sodium Chloride (Saline Flush) 10 ml FLUSH ASDIRECTED PRN PRN Reason: Keep Vein Open Last Admin: 09/26/17 11:46 Dose: 10 ml Thiamine HCl (Vitamin B-1) 100 mg PO DAILY [facility] Topiramate (Topamax) 25 mg PO BID [facility] Last Admin: 09/26/17 20:19 Dose: 25 mg Discontinued Medications Adenosine (Adenocard) 6 mg IVPUSH NOW ONE Stop: 09/26/17 11:29 Last Admin: 09/26/17 11:19 Dose: 6 mg Adenosine (Adenocard) 12 mg IVPUSH NOW ONE Stop: 09/26/17 11:30 Last Admin: 09/26/17 11:20 Dose: 12 mg Chlordiazepoxide HCl (Librium) 50 mg PO ONETIME ONE Stop: 09/26/17 15:06 Last Admin: 09/26/17 16:10 Dose: 50 mg Chlordiazepoxide HCl (Librium) 25 mg PO ONETIME ONE Stop: 09/26/17 19:10 Last Admin: 09/26/17 20:19 Dose: 25 mg Diltiazem HCl (Diltiazem) Confirm Administered Dose 25 mg .ROUTE .STK-MED ONE Stop: 09/26/17 11:33 Last Admin: 09/26/17 11:42 Dose: Not Given Diltiazem HCl (Diltiazem) 20 mg IVPUSH ONETIME ONE Stop: 09/26/17 11:46 Last Admin: 09/26/17 11:25 Dose: 20 mg Diltiazem HCl (Diltiazem) Confirm Administered Dose 125 mg .ROUTE .STK-MED ONE Stop: 09/27/17 01:04 Last Admin: 09/27/17 01:17 Dose: Not Given Diphenhydramine HCl (Benadryl) 50 mg IVPUSH ONETIME ONE Stop: 09/26/17 22:40 Last Admin: 09/26/17 23:06 Dose: 50 mg Enoxaparin Sodium (Lovenox) 40 mg SUBCUT ONETIME ONE Stop: 09/26/17 15:30 Last Admin: 09/26/17 16:02 Dose: 40 mg Folic Acid (Folic Acid) 1 mg PO DAILY DIAMANTE Stop: 09/29/17 09:01 Hydralazine HCl (Apresoline) 20 mg IVPUSH Q4H PRN PRN Reason: Hypertension Sodium Chloride (Normal Saline) 1,000 mls @ 1,000 mls/hr IV .BOLUS DIAMANTE Last Admin: 09/26/17 11:47 Dose: 1,000 mls/hr Diltiazem HCl 125 mg/ Sodium (Chloride) 125 mls @ 5 mls/hr IV TITRATE DIAMANTE; 5 MG /HR PRN Reason: Protocol Levofloxacin/Dextrose 750 mg/ (Premix) 150 mls @ 100 mls/hr IV ONETIME ONE Stop: 09/26/17 14:24 Last Admin: 09/26/17 13:05 Dose: 100 mls/hr Thiamine HCl 200 mg/ Sodium (Chloride) 52 mls @ 100 mls/hr IV ONETIME ONE Stop: 09/26/17 16:01 Last Admin: 09/26/17 15:53 Dose: 100 mls/hr Piperacillin Sod/Tazobactam (Sod 4.5 gm/ Sodium Chloride) 100 mls @ 200 mls/hr IV ONETIME ONE Stop: 09/26/17 16:29 Last Admin: 09/26/17 16:40 Dose: 200 mls/hr Magnesium Sulfate (Pharmacy To Dose - Magnesium Replacement) 1 dose .XX ASDIRECTED [facility] Metoprolol Tartrate (Lopressor) 50 mg PO Q12HR [facility] Last Admin: 09/26/17 20:21 Dose: 50 mg Metoprolol Tartrate (Lopressor) 5 mg IVPUSH Q4H PRN PRN Reason: Tachycardia Metoprolol Tartrate (Lopressor) 50 mg PO BID [facility] Midazolam HCl (Versed 1 Mg/Ml) 2 mg IVPUSH ONETIME ONE Stop: 09/26/17 11:30 Last Admin: 09/26/17 11:21 Dose: 2 mg Multivitamins (Thera) 1 each PO ONETIME ONE Stop: 09/26/17 15:31 Last Admin: 09/26/17 15:53 Dose: 1 each Nicotine (Habitrol) 21 mg TRDERM DAILY [facility] Pantoprazole Sodium (Protonix Iv) 40 mg IV ONETIME ONE Stop: 09/26/17 15:31 Last Admin: 09/26/17 15:54 Dose: 40 mg Potassium Chloride (Pharmacy To Dose - Potassium Replacement) 1 dose .XX ASDIRECTED DIAMANTE Potassium Chloride (Klor-Con M20) 60 meq PO ONETIME ONE Stop: 09/26/17 15:32 Last Admin: 09/26/17 15:52 Dose: 60 meq Quetiapine Fumarate (Seroquel) 25 mg PO ONETIME ONE Stop: 09/26/17 15:15 Last Admin: 09/26/17 16:10 Dose: 25 mg Topiramate (Topamax) 25 mg PO NOW STA Stop: 09/26/17 15:08 Last Admin: 09/26/17 16:10 Dose: 25 mg - Exam General: Sedated, Lethargic, Other (Obese) HEENT: Pupils Equal, Mucous Membr. Moist/[place] Neck: Supple, Trachea Midline, No JVD, No Thyromegaly Lungs: Clear to Auscultation, Normal Respiratory Effort Cardiovascular: Regular Rate, Regular Rhythm GI/Abdominal Exam: Normal Bowel Sounds, Soft, Non-Tender, No Organomegaly, No Distention, No Abnormal Bruit (Male) Exam: Deferred Back Exam: Normal Inspection, Decreased Range of Motion Extremities: Normal Inspection, Normal Range of Motion, Non-Tender, No Pedal Edema, Normal Capillary Refill Peripheral Pulses: 2+: Posterior Tibial (L), Posterior Tibial (R), Dorsalis Pedis (L), Dorsalis Pedis (R) Skin: Warm, Dry, Intact Neurological: No New Focal Deficit Psy/Mental Status: Other (sedate/lethargic but arousable and respond to verbal calls) - Problem List Review Problem List Initiated/Reviewed/Updated: Yes - My Orders Last 24 Hours: My Active Orders 09/26/17 17:22 Alum Hydrox/Mag Hydrox/Simeth [Mag-Al Plus] 30 ml PO Q4H PRN 09/27/17 06:46 METH-RESIST S.AUR,MRSA BY PCR [MOLEC] Routine 09/27/17 09:00 Ferrous Sulfate 325 mg PO DAILY Folic Acid 1 mg PO DAILY Metoprolol Tartrate [Lopressor] 50 mg PO Q12HR - Plan Plan:: Assessment/Plan: Acute: S/p Atrial Fibrillation with RVR - Carries a hx/o Chronic Atrial Fibrillation and Medical Non-compliance - He was on warfarin last time I took care of him; but it seems he is currently on it - Discontinue Cardizem drip - Resume home dose BB - Xarelto 20 mg po daily for anticoagulation Aspiration Pneumonitis - 2/2 Intoxication - Received IV Levaquin 750 mg x1 in ED; resume Levaquin IV daily - Continue IV Zosyn 4.5 mg Q8H and d/c Ceftazidime 1 gram Q8H - Oral Probiotic 250 mg po BID - IS as directed - Aspiration precaution - Serial CXR as needed ETOH Abuse; CIWAS is moderately elevated - Acute on chronic - Admits to drinking heavily at least > 10 small bottles of fireball - His last drink was 2 bottles at 10 AM - He drinks because he is "bored" and "nothing else to do" - CIWA protocol - Ativan/Librium/Clonidine/Seroquel/Topamax - Hydralazine and IVP BB for HR/BP control - Ativan for Abortive Seizure and Withdrawal Symptoms - SW and SA consult Hypokalemia - K 2.6--> 2.8 - 2/2 Inadequate intake - Replete and monitor Lactic Acidosis - Likely resolved; he has been voiding adequately - LA is 3.5 - 2/2 chronic alcoholism - Will d/c IVF once current bag is done MRSA Screening Pos - Bactroban ointment apply to nares BIS for 5 days Chronic: HTN HLD Chronic Pain GERD Hx/o Hepatitis C and MRSA Hx/o Withdrawal Symptoms Hx/o Renal Stones Hx/o Medical Non-Compliance Hx/o Substance Abuse: Benzo, Cocaine, Heroin, and Oxycodone Hx/o Smoking-quit 2 months ago Plan: He is much better Routine AM Labs CIWA Protocol Resume Home Meds Aspiration/Fall/Seizure Precautions PT/OT consult DVT/GI PPx: Xarelto and PPI/H2B SW/CM for d/c planning SA consult for Substance Abuse Additional orders as above Code status: 1 Spoke and updated patient this AM. Informed him, there is a possibility he may be transferred to the [facility] in [place] for continued care.
[2017-09-27] MEDS: Magnesium Sulfate/Water 2 GM in Premix Bag 1 BAG IV SCH ×2 (08:32→11:08)
[2017-09-27] MEDS: LORazepam 2 MG/ML SDV IV PRN (08:38)
[2017-09-27] MEDS: Famotidine 20 MG Tab PO SCH (08:49)
[2017-09-27] MEDS: Potassium Chloride 20 MEQ Tab.ER PO SCH ×2 (08:50→13:33)
[2017-09-27] MEDS: Saccharomyces Boulardii (Probiotic) 250 MG Cap PO SCH (08:51)
[2017-09-27] MEDS: Topiramate 25 MG Tab PO SCH (08:51)
[2017-09-27] MEDS ORDERED: Thiamine 100 MG Tab PO SCH (09:00)
[2017-09-27] MEDS ORDERED: Nicotine 21 MG/24 Hr Patch TRDERM SCH (09:00)
[2017-09-27] MEDS ORDERED: Folic Acid 1 MG Tab PO SCH ×2 (09:00)
[2017-09-27] MEDS ORDERED: Metoprolol Tartrate 50 MG Tab PO SCH (09:00)
[2017-09-27] MEDS ORDERED: Ferrous Sulfate 325 MG Tab PO SCH (09:00)
[2017-09-27] MEDS ORDERED: Mupirocin Oint 22 GM Tube TOP SCH (09:00)
[2017-09-27] MEDS ORDERED: Rivaroxaban 10 MG Tab PO SCH (09:00)
[2017-09-27] MEDS ORDERED: Diltiazem 300 MG Cap.CD PO SCH (09:00)
[2017-09-27] MEDS ORDERED: Levofloxacin 750 MG Tab PO SCH (10:45)
[2017-09-27] MEDS ORDERED: Levofloxacin/Dextrose 5%-Water 750 MG in Premix Bag 1 BAG IV SCH (11:00)
[2017-09-27 11:53] VITALS: BP 116/81
--- NOTE | 2017-09-27 12:38 | PCM.DCSUM1 ---
Discharge Summary - Hospital Course Brief History: This is a 57 yo [place] with past medical hx/o COPD, GERD, Hx/o Hepatitis, Hx/o DTs, Hx/o Substance Abuse, Hx/o Smoking and Medical Non- Compliance who comes in for evaluation of worsening chest pain associated with shortness of breath that started yesterday and was found in atrial fibrillation with rapid ventricular rate as high as 180s. - Discharge Data Discharge Date: 09/27/17 Discharge Disposition: DC/Tfer to Acute Hospital 02 Condition: Good - Discharge Diagnosis/Problem(s) (1) Pneumonia SNOMED Code(s): 238552379 ICD Code: J18.9 - PNEUMONIA, UNSPECIFIED ORGANISM Status: Acute Qualifiers: Pneumonia type: aspiration pneumonia Aspiration pneumonia type: unspecified Laterality: right Lung location: lower lobe of lung Qualified Code(s): J69.0 - Pneumonitis due to inhalation of food and vomit (2) Atrial fibrillation with RVR SNOMED Code(s): 424967021046962 ICD Code: I48.91 - UNSPECIFIED ATRIAL FIBRILLATION Status: Acute (3) Hypomagnesemia syndrome SNOMED Code(s): 246527816 ICD Code: E83.42 - HYPOMAGNESEMIA Status: Acute (4) Hypokalemia SNOMED Code(s): 93093618 ICD Code: E87.6 - HYPOKALEMIA Status: Acute (5) Alcohol abuse SNOMED Code(s): 49165610 ICD Code: F10.10 - ALCOHOL ABUSE, UNCOMPLICATED Status: Acute (6) Lactic acidosis SNOMED Code(s): 70257684 ICD Code: E87.2 - ACIDOSIS Status: Acute - Patient Summary/Data Operative Procedure(s) Performed: None Complications: None Consults: None Labs Pending at D/C: None Recommended Follow-up Testing/Procedures: None Planned Operative Procedure(s) after DC: None Hospital Course: The patient was primarily admitted for medical treatment of acute alcohol intoxication with withdrawal symptoms. However he was found in rapid irregular heart rate as high as 180s. Patient received initial intervention in ED and was put on cardizem drip before he was sent to unit for further treatment. Overnight, he had no significant issues. He slept through the night and no complaints reported. This morning he converted chemically back to sinus rhythm and his home Metoprolol dose was continued. His hospital course was uncomplicated with the exception of electrolytes abnormality which was due to inadequate intake from chronic alcohol abuse. However he was supplemented both with magnesium and potassium before he was transferred to the [facility] in [place] for further care. Patient left via ground ambulance. He will be under the services of Dr. Rosales , attending hospitalist. - Patient Instructions Diet: Usual Diet as Tolerated Activity: As Tolerated Driving: Do Not Drive Showering/Bathing: May Shower Notify Provider of: Fever, Nausea and/or Vomiting Other/Special Instructions: - Trasnfer to [facility] in [place], [place]. - Follow up with your doctor 1 week after discharge - Discharge Plan Home Medications: Home Meds Omeprazole 20 mg PO BID 07/07/16 [History] Ferrous Sulfate [Iron] 325 mg PO DAILY 09/26/17 [History] Folic Acid 1 mg PO DAILY 09/26/17 [History] Lipitor. 09/26/17 [History] Metoprolol Tartrate 50 mg PO BID 09/26/17 [History] Thiamine [Vitamin B-1] 100 mg PO DAILY 09/26/17 [History] Patient Handouts: Alcohol Use Disorder, Rivaroxaban oral tablets, Atrial Fibrillation, [id number], Aspiration Pneumonia, Alcohol Withdrawal, Easy-to- Read Referrals: Gilda Huang DO [Primary Care Provider] - - Discharge Summary/Plan Comment DC Time >30 min.: Yes (45 mins) Discharge Summary/Plan Comment: Transfer to [facility] in [place] under the services of Dr. Rosales - General Info Date of Service: 09/27/17 Admission Dx/Problem (Free Text: Atrial Fibrillation and Aspiration Pneumonia Subjective Update: Follow Up Functional Status: Reports: Pain Controlled, Tolerating Diet, Urinating - Review of Systems General: Denies: Weakness, Fatigue, Malaise, Chills HEENT: Reports: No Symptoms Pulmonary: Denies: Shortness of Breath Cardiovascular: Denies: Chest Pain Gastrointestinal: Denies: Abdominal Pain, Nausea, Vomiting Genitourinary: Reports: Incontinence Musculoskeletal: Reports: No Symptoms Skin: Denies: Cyanosis, Jaundice, Mottled, Pallor, Diaphoresis Neurological: Reports: Gait Disturbance. Denies: Confusion, Dizziness, Headache , Pre-Existing Deficit, Seizure, Syncope, Tingling, Difficulty Walking Psychiatric: Denies: Depression, Anxiety, Agitation, Hallucinations Systems Review Comment: He sedated/lethargic but easily arousable. He is no acute distress. - Patient Data Vitals - Most Recent: Last Vital Signs Temp 37.7 C 09/27/17 11:50 Pulse 93 09/27/17 11:50 Resp 30 H 09/27/17 11:50 BP 116/81 09/27/17 11:50 Pulse Ox 96 09/27/17 11:50 Weight - Most Recent: 113.126 kg I&O - Last 24 hours: Intake & Output 09/26/17 09/27/17 09/27/17 22:59 06:59 14:59 Intake Total 240 2139 1233 Output Total 1025 525 Balance -785 2139 708 Lab Results - Last 24 hrs: Laboratory Results - last 24 hr 09/26/17 09/27/17 09/27/17 Range/Units 18:09 06:01 06:01 WBC 13.35 H (4.23-9.07) K/mm3 RBC 3.89 L (4.63-6.08) M/mm3 Hgb 12.3 L (13.7-17.5) gm/L Hct 34.8 L (40.1-51.0) % MCV 89.5 (79.0-92.2) fl MCH 31.6 (25.7-32.2) pg MCHC 35.3 (32.2-35.5) g/dl RDW Std Deviation 42.6 (35.1-43.9) fL Plt Count 61 L (163-337) K/mm3 MPV 10.3 (9.4-12.3) fl Neut % (Auto) 83.4 H (34.0-67.9) % Lymph % (Auto) 11.9 L (21.8-53.1) % [place] % (Auto) 4.0 L (5.3-12.2) % Eos % (Auto) 0.2 L (0.8-7.0) Baso % (Auto) 0.1 (0.1-1.2) % Neut # (Auto) 11.13 H (1.78-5.38) K/mm3 Lymph # (Auto) 1.59 (1.32-3.57) K/mm3 [place] # (Auto) 0.53 (0.30-0.82) K/mm3 Eos # (Auto) 0.03 L (0.04-0.54) K/mm3 Baso # (Auto) 0.01 (0.01-0.08) K/mm3 Manual Slide Review Abnormal smear Sodium 140 (136-145) mEq/L Potassium 2.8 L (3.5-5.1) mEq/L Chloride 108 H (98-107) mEq/L Carbon Dioxide 21 (21-32) mEq/L Anion Gap 13.8 (5-15) BUN 8 (7-18) mg/dL Creatinine 0.9 (0.7-1.3) mg/dL Est Cr Clr Drug Dosing 83.65 mL/min Estimated GFR (MDRD) > 60 (>60) mL/min BUN/Creatinine Ratio 8.9 L (14-18) Glucose 98 (74-106) mg/dL Calcium 7.7 L (8.5-10.1) mg/dL Magnesium 1.0 L (1.8-2.4) mg/dl C-Reactive Protein 14.9 H* (<1.0) mg/dL Free T4 0.97 (0.76-1.46) ng/dL TSH 3rd Generation 0.292 L (0.358-3.74) uIU/mL Urine Opiates Screen Presumptive positive H (NEGATIVE) Ur Buprenorphine Scrn Negative (NEGATIVE) Ur Oxycodone Screen Negative (NEGATIVE) Urine Methadone Screen Negative (NEGATIVE) Ur Propoxyphene Screen Negative (NEGATIVE) Ur Barbiturates Screen Negative (NEGATIVE) Ur Tricyclics Screen Negative (NEGATIVE) Ur Phencyclidine Scrn Negative (NEGATIVE) Ur Amphetamine Screen Negative (NEGATIVE) U Methamphetamines Scrn Negative (NEGATIVE) U Benzodiazepines Scrn Negative (NEGATIVE) U Cocaine Metab Screen Negative (NEGATIVE) U Marijuana (THC) Screen Negative (NEGATIVE) MRSA (PCR) 09/27/17 Range/Units 06:46 WBC (4.23-9.07) K/mm3 RBC (4.63-6.08) M/mm3 Hgb (13.7-17.5) gm/L Hct (40.1-51.0) % MCV (79.0-92.2) fl MCH (25.7-32.2) pg MCHC (32.2-35.5) g/dl RDW Std Deviation (35.1-43.9) fL Plt Count (163-337) K/mm3 MPV (9.4-12.3) fl Neut % (Auto) (34.0-67.9) % Lymph % (Auto) (21.8-53.1) % [place] % (Auto) (5.3-12.2) % Eos % (Auto) (0.8-7.0) Baso % (Auto) (0.1-1.2) % Neut # (Auto) (1.78-5.38) K/mm3 Lymph # (Auto) (1.32-3.57) K/mm3 [place] # (Auto) (0.30-0.82) K/mm3 Eos # (Auto) (0.04-0.54) K/mm3 Baso # (Auto) (0.01-0.08) K/mm3 Manual Slide Review Sodium (136-145) mEq/L Potassium (3.5-5.1) mEq/L Chloride (98-107) mEq/L Carbon Dioxide (21-32) mEq/L Anion Gap (5-15) BUN (7-18) mg/dL Creatinine (0.7-1.3) mg/dL Est Cr Clr Drug Dosing mL/min Estimated GFR (MDRD) (>60) mL/min BUN/Creatinine Ratio (14-18) Glucose (74-106) mg/dL Calcium (8.5-10.1) mg/dL Magnesium (1.8-2.4) mg/dl C-Reactive Protein (<1.0) mg/dL Free T4 (0.76-1.46) ng/dL TSH 3rd Generation (0.358-3.74) uIU/mL Urine Opiates Screen (NEGATIVE) Ur Buprenorphine Scrn (NEGATIVE) Ur Oxycodone Screen (NEGATIVE) Urine Methadone Screen (NEGATIVE) Ur Propoxyphene Screen (NEGATIVE) Ur Barbiturates Screen (NEGATIVE) Ur Tricyclics Screen (NEGATIVE) Ur Phencyclidine Scrn (NEGATIVE) Ur Amphetamine Screen (NEGATIVE) U Methamphetamines Scrn (NEGATIVE) U Benzodiazepines Scrn (NEGATIVE) U Cocaine Metab Screen (NEGATIVE) U Marijuana (THC) Screen (NEGATIVE) MRSA (PCR) Positive H [facility] Results - Last 24 hrs: Microbiology 09/26/17 18:09 Influenza Type A Antigen Screen - Final Nasal Aspirate, Unspecified NEGATIVE INFLUENZA A VIRUS AG Influenza Type B Antigen Screen - Final NEGATIVE INFLUENZA B VIRUS AG Med Orders - Current: Current Medications Acetaminophen (Tylenol) 650 mg PO Q4H PRN PRN Reason: Pain (Mild 1-3)/fever Hydrocodone Bitart/Acetaminophen ([place] 325-5 Mg) 1 tab PO Q4H PRN PRN Reason: Pain (moderate 4-6) Al Hydroxide/Mg Hydroxide (Mag-Al Plus) 30 ml PO Q4H PRN PRN Reason: Heartburn Last Admin: 09/26/17 17:36 Dose: 30 ml Albuterol/Ipratropium (Duoneb 3.0-0.5 Mg/3 Ml) 3 ml NEB Q4H PRN PRN Reason: Shortness Of Breath/wheezing Bisacodyl (Dulcolax) 5 mg PO DAILY PRN PRN Reason: Constipation Clonidine HCl (Catapres) 0.1 mg PO Q4H PRN PRN Reason: Agitation Docusate Sodium (Colace) 100 mg PO BID PRN PRN Reason: Constipation Famotidine (Pepcid) 20 mg PO Q12H [facility] Last Admin: 09/27/17 08:49 Dose: 20 mg Ferrous Sulfate (Ferrous Sulfate) 325 mg PO DAILY [facility] Last Admin: 09/27/17 08:47 Dose: 325 mg Folic Acid (Folic Acid) 1 mg PO DAILY [facility] Last Admin: 09/27/17 08:47 Dose: 1 mg Hydralazine HCl (Apresoline) 20 mg IVPUSH Q4H PRN PRN Reason: Hypertension Hydromorphone HCl (Dilaudid) 0.25 mg IVPUSH Q2H PRN PRN Reason: Pain (severe 7-10) Diltiazem HCl 125 mg/ Sodium (Chloride) 125 mls @ 5 mls/hr IV TITRATE DIAMANTE; 5 MG /HR PRN Reason: Protocol Last Titration: 09/27/17 03:22 Dose: 15 mg/hr, 15 mls/hr Promethazine HCl 12.5 mg/ (Sodium Chloride) 50.5 mls @ 100 mls/hr IV Q6H PRN PRN Reason: Nausea/Vomiting Piperacillin Sod/Tazobactam (Sod 4.5 gm/ Sodium Chloride) 100 mls @ 25 mls/hr IV Q8H [facility] Last Admin: 09/27/17 08:33 Dose: 25 mls/hr Levofloxacin/Dextrose 750 mg/ (Premix) 150 mls @ 100 mls/hr IV Q24H [facility] Last Admin: 09/27/17 11:13 Dose: 100 mls/hr Lorazepam (Ativan) 1 mg IV Q6H PRN PRN Reason: Nausea/Vomiting Last Admin: 09/27/17 08:38 Dose: 1 mg Lorazepam (Ativan) 2 mg IVPUSH Q4H PRN PRN Reason: Seizures Lorazepam (Ativan) 0 mg IVPUSH Q4H PRN; Protocol PRN Reason: Withdrawal Symptoms Last Admin: 09/27/17 10:00 Dose: 2 mg Magnesium Sulfate (Pharmacy To Dose - Magnesium Replacement) 1 dose .XX ASDIRECTED [facility] Metoprolol Tartrate (Lopressor) 5 mg IVPUSH Q4H PRN PRN Reason: Tachycardia Last Admin: 09/26/17 15:54 Dose: 5 mg Metoprolol Tartrate (Lopressor) 50 mg PO Q12HR [facility] Last Admin: 09/27/17 08:51 Dose: 50 mg Miscellaneous Information (Remove Patch) 0 ea TRDERM DAILY [facility] Mupirocin (Bactroban Oint) 0 gm TOP BID [facility] Stop: 10/01/17 21:01 Last Admin: 09/27/17 09:00 Dose: 1 dose Ondansetron HCl (Zofran) 4 mg IV Q6H PRN PRN Reason: Nausea/Vomiting Polyethylene Glycol (Miralax) 17 gm PO DAILY PRN PRN Reason: Constipation Potassium Chloride (Pharmacy To Dose - Potassium Replacement) 1 dose .XX ASDIRECTED [facility] Potassium Chloride (Klor-Con M20) 40 meq PO Q4H [facility] Stop: 09/27/17 20:16 Last Admin: 09/27/17 08:50 Dose: 40 meq Quetiapine Fumarate (Seroquel) 50 mg PO BEDTIME [facility] Last Admin: 09/26/17 20:18 Dose: 50 mg Rivaroxaban (Xarelto) 20 mg PO DAILY [facility] Last Admin: 09/27/17 08:46 Dose: 20 mg Saccharomyces Boulardii (Florastor) 250 mg PO BID [facility] Last Admin: 09/27/17 08:51 Dose: 250 mg Senna/Docusate Sodium (Senna Plus) 1 tab PO BID PRN PRN Reason: Constipation Sodium Chloride (Saline Flush) 10 ml FLUSH ASDIRECTED PRN PRN Reason: Keep Vein Open Last Admin: 09/26/17 11:46 Dose: 10 ml Thiamine HCl (Vitamin B-1) 100 mg PO DAILY [facility] Last Admin: 09/27/17 08:46 Dose: 100 mg Topiramate (Topamax) 25 mg PO BID [facility] Last Admin: 09/27/17 08:51 Dose: 25 mg Discontinued Medications Adenosine (Adenocard) 6 mg IVPUSH NOW ONE Stop: 09/26/17 11:29 Last Admin: 09/26/17 11:19 Dose: 6 mg Adenosine (Adenocard) 12 mg IVPUSH NOW ONE Stop: 09/26/17 11:30 Last Admin: 09/26/17 11:20 Dose: 12 mg Chlordiazepoxide HCl (Librium) 50 mg PO ONETIME ONE Stop: 09/26/17 15:06 Last Admin: 09/26/17 16:10 Dose: 50 mg Chlordiazepoxide HCl (Librium) 25 mg PO ONETIME ONE Stop: 09/26/17 19:10 Last Admin: 09/26/17 20:19 Dose: 25 mg Diltiazem HCl (Diltiazem) Confirm Administered Dose 25 mg .ROUTE .STK-MED ONE Stop: 09/26/17 11:33 Last Admin: 09/26/17 11:42 Dose: Not Given Diltiazem HCl (Diltiazem) 20 mg IVPUSH ONETIME ONE Stop: 09/26/17 11:46 Last Admin: 09/26/17 11:25 Dose: 20 mg Diltiazem HCl (Cardizem Cd) 300 mg PO DAILY [facility] Last Admin: 09/27/17 08:21 Dose: Not Given Diltiazem HCl (Diltiazem) Confirm Administered Dose 125 mg .ROUTE .STK-MED ONE Stop: 09/27/17 01:04 Last Admin: 09/27/17 01:17 Dose: Not Given Diphenhydramine HCl (Benadryl) 50 mg IVPUSH ONETIME ONE Stop: 09/26/17 22:40 Last Admin: 09/26/17 23:06 Dose: 50 mg Enoxaparin Sodium (Lovenox) 40 mg SUBCUT ONETIME ONE Stop: 09/26/17 15:30 Last Admin: 09/26/17 16:02 Dose: 40 mg Folic Acid (Folic Acid) 1 mg PO DAILY [facility] Stop: 09/29/17 09:01 Hydralazine HCl (Apresoline) 20 mg IVPUSH Q4H PRN PRN Reason: Hypertension Sodium Chloride (Normal Saline) 1,000 mls @ 1,000 mls/hr IV .BOLUS DIAMANTE Last Admin: 09/26/17 11:47 Dose: 1,000 mls/hr Diltiazem HCl 125 mg/ Sodium (Chloride) 125 mls @ 5 mls/hr IV TITRATE DIAMANTE; 5 MG /HR PRN Reason: Protocol Levofloxacin/Dextrose 750 mg/ (Premix) 150 mls @ 100 mls/hr IV ONETIME ONE Stop: 09/26/17 14:24 Last Admin: 09/26/17 13:05 Dose: 100 mls/hr Sodium Chloride (Normal Saline) 1,000 mls @ 250 mls/hr IV ASDIRECTED [facility] Last Admin: 09/27/17 05:55 Dose: 250 mls/hr Thiamine HCl 200 mg/ Sodium (Chloride) 52 mls @ 100 mls/hr IV ONETIME ONE Stop: 09/26/17 16:01 Last Admin: 09/26/17 15:53 Dose: 100 mls/hr Ceftazidime 1 gm/ Sodium (Chloride) 50 mls @ 100 mls/hr IV Q8H [facility] Last Admin: 09/27/17 07:52 Dose: 100 mls/hr Piperacillin Sod/Tazobactam (Sod 4.5 gm/ Sodium Chloride) 100 mls @ 200 mls/hr IV ONETIME ONE Stop: 09/26/17 16:29 Last Admin: 09/26/17 16:40 Dose: 200 mls/hr Magnesium Sulfate 2 gm/ Premix 50 mls @ 25 mls/hr IV Q2H [facility] Stop: 09/27/17 12:14 Last Admin: 09/27/17 11:08 Dose: 25 mls/hr Levofloxacin (Levaquin) 750 mg PO Q24H [facility] Magnesium Sulfate (Pharmacy To Dose - Magnesium Replacement) 1 dose .XX ASDIRECTED [facility] Metoprolol Tartrate (Lopressor) 50 mg PO Q12HR [facility] Last Admin: 09/26/17 20:21 Dose: 50 mg Metoprolol Tartrate (Lopressor) 5 mg IVPUSH Q4H PRN PRN Reason: Tachycardia Metoprolol Tartrate (Lopressor) 50 mg PO BID [facility] Midazolam HCl (Versed 1 Mg/Ml) 2 mg IVPUSH ONETIME ONE Stop: 09/26/17 11:30 Last Admin: 09/26/17 11:21 Dose: 2 mg Midazolam HCl (Versed 1 Mg/Ml) 5 mg .ROUTE .STK-MED ONE Stop: 09/26/17 22:23 Multivitamins (Thera) 1 each PO ONETIME ONE Stop: 09/26/17 15:31 Last Admin: 09/26/17 15:53 Dose: 1 each Nicotine (Habitrol) 21 mg TRDERM DAILY [facility] Pantoprazole Sodium (Protonix Iv) 40 mg IV ONETIME ONE Stop: 09/26/17 15:31 Last Admin: 09/26/17 15:54 Dose: 40 mg Potassium Chloride (Pharmacy To Dose - Potassium Replacement) 1 dose .XX ASDIRECTED [facility] Potassium Chloride (Klor-Con M20) 60 meq PO ONETIME ONE Stop: 09/26/17 15:32 Last Admin: 09/26/17 15:52 Dose: 60 meq Quetiapine Fumarate (Seroquel) 25 mg PO ONETIME ONE Stop: 09/26/17 15:15 Last Admin: 09/26/17 16:10 Dose: 25 mg Topiramate (Topamax) 25 mg PO NOW STA Stop: 09/26/17 15:08 Last Admin: 09/26/17 16:10 Dose: 25 mg - Exam Quality Assessment: Reports: Supplemental Oxygen General: Reports: Alert, No Acute Distress, Sedated, Lethargic HEENT: Reports: Pupils Equal, Pupils Reactive, Mucous Membr. Moist/[place] Neck: Reports: Supple, Trachea Midline, No JVD Lungs: Reports: Clear to Auscultation, Normal Respiratory Effort Cardiovascular: Reports: Regular Rate, Regular Rhythm GI/Abdominal Exam: Normal Bowel Sounds, Soft, Non-Tender, No Organomegaly, No Distention, No Abnormal Bruit, No Mass (Male) Exam: Deferred Rectal (Males) Exam: Deferred Back Exam: Reports: Normal Inspection, Decreased Range of Motion Extremities: Normal Inspection, Normal Range of Motion, Non-Tender, No Pedal Edema, Normal Capillary Refill Skin: Reports: Warm, Dry, Intact Wound/Incisions: Reports: Healing Well Neurological: Reports: Other (limited due to sedation and inability to follow commands). Denies: Normal Gait Psy/Mental Status: Reports: Other (sedated/lethargic) *Q Meaningful Use (DIS) - VTE *Q VTE Criteria *Q: - Stroke *Q Stroke Criteria *Q: - AMI *Q AMI Criteria *Q:
[2017-09-27] MEDS ORDERED: Potassium Chloride 20 MEQ Tab.ER PO ONE (12:50)
[2017-09-27] MEDS ORDERED: Sodium Chloride 0.9% 1,000 ML ONE (13:10)
[2017-09-27] MEDS: Potassium Chloride 10 MEQ in Premix Bag 1 BAG IV SCH ×2 (13:19→14:04)
== END 2017-09-27 14:18 | DRG 308 ==
LOC: JD.ED 11:12 → JD.ICU 15:28
PROVIDERS: ADMIT Internal Medicine; ATTEND Internal Medicine
DX: I48.91 Unspecified atrial fibrillation (principal); J69.0 Pneumonitis due to inhalation of food and vomit; E87.1 Hypo-osmolality and hyponatremia; E87.2 Acidosis; F10.239 Alcohol dependence with withdrawal, unspecified; A49.02 Methicillin resistant Staphylococcus aureus infection, unspecified site; E83.42 Hypomagnesemia; E87.6 Hypokalemia; Y90.0 Blood alcohol level of less than 20 mg/100 ml; Z91.19 Patient's noncompliance with other medical treatment and regimen; F10.229 Alcohol dependence with intoxication, unspecified; Z79.899 Other long term (current) drug therapy; J44.9 Chronic obstructive pulmonary disease, unspecified; K21.9 Gastro-esophageal reflux disease without esophagitis; Z86.19 Personal history of other infectious and parasitic diseases; E78.5 Hyperlipidemia, unspecified; I10 Essential (primary) hypertension; G89.29 Other chronic pain; Z87.891 Personal history of nicotine dependence
CPT/HCPCS: 36415; 71045; 71045-26; 80048; 80053; 80306; 83605; 83735; 83880; 84439; 84443; 84484; 85025; 85379; 86140; 87040; 87641; 87804; 93005; 93010; 96365; 96366; 96368; 96375; 96376; 99222; 99239; 99291; A9270-GY; C9113; G0480; J0153; J0713; J1200; J1650; J1956; J2060; J2250; J2543; J3411; J3475; J3480; J3490; J7030; J7040; J7050

== ENCOUNTER 2019-01-09 11:23 | Emergency (ER) | payer OTHER ==
[2019-01-09 11:48] VITALS: BP 126/83
--- NOTE | 2019-01-09 13:40 | EDM.PDOCBH ---
ED HPI GENERAL MEDICAL PROBLEM - General Chief Complaint: Drug or Alcohol Abuse Stated Complaint: NEEDS MEDICAL CLEARANCE TO GET INTO [facility] Time Seen by Provider: 01/09/19 11:38 Source of Information: Reports: Patient History Limitations: Reports: No Limitations - History of Present Illness INITIAL COMMENTS - FREE TEXT/NARRATIVE: The patient presents for medical clearance for alcohol treatment with [facility]. He has been an alcoholic for many years. He will drink multiple shots of whiskey daily and some beer. He drinks daily. There are some days when he can stop. He is looking for help. He says he is waisting his life. He has no symptoms now. He last drank a few shots before arrival. He has no fever, chills, cough, chest pain, shortness of breath, or abdominal pain. Onset: Gradual Severity: Moderate Improves with: Reports: None Worsens with: Reports: None Associated Symptoms: Reports: No Other Symptoms - Related Data Allergies Allergy/AdvReac Type Severity Reaction Status Date / Time No Known Allergies Allergy Verified 01/09/19 11:47 Home Meds: Home Meds Omeprazole 20 mg PO DAILY 07/07/16 [History] Folic Acid 1 mg PO DAILY 09/26/17 [History] Metoprolol Tartrate 50 mg PO BID 09/26/17 [History] Thiamine [Vitamin B-1] 100 mg PO DAILY 09/26/17 [History] Cholecalciferol (Vitamin D3) [Vitamin D] 5,000 unit PO DAILY 01/09/19 [History] Diltiazem [Diltiazem XR] 240 mg PO DAILY 01/09/19 [History] LORazepam [Ativan] 1 mg PO DAILY #18 tablet 01/09/19 [Rx] Magnesium Oxide 840 mg PO DAILY 01/09/19 [History] Multivitamin [Multivitamins] 1 each PO DAILY 01/09/19 [History] Ondansetron [Zofran ODT] 4 mg PO Q6H #10 tab.dis 01/09/19 [Rx] Rivaroxaban [Xarelto] 20 mg PO DAILY 01/09/19 [History] atorvaSTATin [Lipitor] 10 mg PO BEDTIME 01/09/19 [History] Past Medical History - Past Health History Medical/Surgical History: Denies Medical/Surgical History HEENT History: Reports: Cataract Cardiovascular History: Reports: Afib, High Cholesterol, Hypertension Other Cardiovascular History: pt is admitted this time with a-fib/RVR Respiratory History: Reports: COPD Other Respiratory History: 07/24/16 admitted with pneumonia Gastrointestinal History: Reports: GERD Genitourinary History: Reports: Renal Calculus Musculoskeletal History: Reports: Fracture Other Musculoskeletal History: rigth foot fracture 20 yrs ago Neurological History: Reports: Other (See Below) Other Neuro History: With withdrawal for alcohol Psychiatric History: Reports: Addiction Endocrine/Metabolic History: Reports: Obesity/BMI 30+ Hematologic History: Reports: None Other Immunologic History: pt states that a doctor told him he had hep c once but his last check was ok Oncologic (Cancer) History: Reports: None - Infectious Disease History Infectious Disease History: Reports: Hepatitis C, MRSA Other Infectious Disease History: Hep C per Demond Ponce hospitalist/[place], 06/2016. - Past Surgical History Head Surgeries/Procedures: Reports: None Musculoskeletal Surgical History: Reports: ORIF, Other (See Below) Social & Family History - Family History Family Medical History: Noncontributory Neurological: Reports: CVA Endocrine/Metabolic: Reports: Diabetes, type II Hematologic: Reports: Other (See Below) Other Hematologic Family History: hepatitias c Immunologic: Reports: None Oncologic: Reports: Leukemia - Tobacco Use Smoking Status *Q: Unknown Ever Smoked - Caffeine Use Caffeine Use: Reports: Soda - Alcohol Use Days Per Week of Alcohol Use: 7 Number of Drinks Per Day: 16 Total Drinks Per Week: 112 - Recreational Drug Use Recreational Drug Use: No - Living Situation & Occupation Living situation: Reports: , Alone Occupation: Unemployed ED ROS GENERAL - Review of Systems Review Of Systems: See Below Constitutional: Reports: No Symptoms HEENT: Reports: No Symptoms Respiratory: Reports: No Symptoms Cardiovascular: Reports: No Symptoms Endocrine: Reports: No Symptoms GI/Abdominal: Reports: No Symptoms : Reports: No Symptoms Musculoskeletal: Reports: No Symptoms ED EXAM, BEHAVIORAL HEALTH - Physical Exam Exam: See Below Exam Limited By: No Limitations General Appearance: Alert, No Apparent Distress Ears: Normal External Exam Nose: Normal Inspection Head: Atraumatic, Normocephalic Neck: Normal Inspection Respiratory/Chest: No Respiratory Distress, Lungs Clear, Normal Breath Sounds Cardiovascular: Regular Rate, Rhythm, No Edema, No Murmur GI/Abdominal: Other (Ventral hernia with no tenderness) COURSE, BEHAVIORAL HEALTH COMP - Course Vital Signs: Last Vital Signs Temp 98.7 F 01/09/19 11:35 Pulse 105 H 01/09/19 11:35 Resp 18 01/09/19 11:35 BP 126/83 01/09/19 11:35 Pulse Ox 92 L 01/09/19 11:35 Orders, Labs, Meds: Active Orders 24 hr Category Date Time Status Cardiac Monitoring [RC] . DIRECTED Care 01/09/19 12:23 Active EKG Documentation Completion [RC] STAT Care 01/09/19 12:23 Active Laboratory Tests 01/09/19 01/09/19 01/09/19 Range/Units 12:30 12:30 12:50 WBC 11.75 H (4.23-9.07) K/mm3 RBC 4.85 (4.63-6.08) M/mm3 Hgb 14.9 D (13.7-17.5) gm/L Hct 42.9 (40.1-51.0) % MCV 88.5 (79.0-92.2) fl MCH 30.7 (25.7-32.2) pg MCHC 34.7 (32.2-35.5) g/dl RDW Std Deviation 41.9 (35.1-43.9) fL Plt Count 144 L D (163-337) K/mm3 MPV 8.5 L (9.4-12.3) fl Neut % (Auto) 76.8 H (34.0-67.9) % Lymph % (Auto) 13.1 L (21.8-53.1) % [place] % (Auto) 8.9 (5.3-12.2) % Eos % (Auto) 0.7 L (0.8-7.0) Baso % (Auto) 0.2 (0.1-1.2) % Neut # (Auto) 9.03 H (1.78-5.38) K/mm3 Lymph # (Auto) 1.54 (1.32-3.57) K/mm3 [place] # (Auto) 1.05 H (0.30-0.82) K/mm3 Eos # (Auto) 0.08 (0.04-0.54) K/mm3 Baso # (Auto) 0.02 (0.01-0.08) K/mm3 Sodium 141 (136-145) mEq/L Potassium 3.4 L (3.5-5.1) mEq/L Chloride 103 (98-107) mEq/L Carbon Dioxide 25 (21-32) mEq/L Anion Gap 16.4 H (5-15) BUN 9 (7-18) mg/dL Creatinine 0.9 (0.7-1.3) mg/dL Est Cr Clr Drug Dosing 85.50 mL/min Estimated GFR (MDRD) > 60 (>60) mL/min BUN/Creatinine Ratio 10.0 L (14-18) Glucose 163 H (74-106) mg/dL Calcium 9.2 D (8.5-10.1) mg/dL Magnesium 1.6 L (1.8-2.4) mg/dl Total Bilirubin 0.7 (0.2-1.0) mg/dL AST 24 (15-37) U/L ALT 46 (16-63) U/L Alkaline Phosphatase 63 (46-116) U/L Total Protein 7.4 (6.4-8.2) g/dl Albumin 3.4 (3.4-5.0) g/dl Globulin 4.0 gm/dL Albumin/Globulin Ratio 0.9 L (1-2) Urine Opiates Screen Negative (NEQTLR=968) Ur Buprenorphine Scrn Negative (CUTOFF=10) Ur Oxycodone Screen Negative (CWK0NF=481) Urine Methadone Screen Negative (YTH5IA=115) Ur Propoxyphene Screen Negative (GYORQV=652) Ur Barbiturates Screen Negative (PZYFNC=989) Ur Tricyclics Screen Negative (FXPFKP=545) Ur Phencyclidine Scrn Negative (CUTOFF=25) Ur Amphetamine Screen Negative (UPSXCT=377) U Methamphetamines Scrn Negative (YNPYWO=840) U Benzodiazepines Scrn Negative (OQTVAM=737) U Cocaine Metab Screen Negative (QWHXZE=057) U Marijuana (THC) Screen Negative (CUTOFF=50) Ethyl Alcohol 0.02 (0.00) gm% Re-Assessment/Re-Exam: His WBC was slightly elevated at 11.75. His Platelets were low at 144. His K was a little low at 3.4. He anion gap was elevated at 16.4. His glucose was 163. His magnesium was a little low at 1.6. His UDS was negative. His ETOH was 0.02. I did an EKG that shows a NSR with no acute changes. I called [facility] and they do have a bed so I will do orders and send in some prescriptions. The patient recently had some trouble with his right ear. He was going to get a hearing aid but he has some buzzing in his ear. He is being put on prednisone. Departure - Departure Time of Disposition: 14:35 Disposition: Home, Self-Care 01 Condition: Good Clinical Impression: Alcohol abuse, Alcohol withdrawal syndrome Alcohol dependence Qualifiers: Substance use status: uncomplicated Qualified Code(s): F10.20 - Alcohol dependence, uncomplicated - Discharge Information *PRESCRIPTION DRUG MONITORING PROGRAM REVIEWED*: No *COPY OF PRESCRIPTION DRUG MONITORING REPORT IN PATIENT MCKENZIE: No Prescriptions: LORazepam [Ativan] 1 mg PO DAILY #18 tablet Ondansetron [Zofran ODT] 4 mg PO Q6H #10 tab.dis Referrals: Geneva Gutiérrez MD [Primary Care Provider] - Additional Instructions: Drink plenty of fluids. Do not drink alcohol. Take the zofran every 6 hours for nausea. Take ativan 1mg by mouth 3 times per day for 3 days, then 1mg 2 times per day for 3 days and then 1 pill by mouth at night for 3 days. Take your other medication as prescribed. Please return if you are worse. - My Orders Last 24 Hours: My Active Orders 01/09/19 12:23 Cardiac Monitoring [RC] . DIRECTED EKG Documentation Completion [RC] STAT - Assessment/Plan Last 24 Hours: My Active Orders 01/09/19 12:23 Cardiac Monitoring [RC] . DIRECTED EKG Documentation Completion [RC] STAT
[2019-01-09] MEDS ORDERED: predniSONE 20 MG Tab PO ONE (14:43)
[2019-01-09] MEDS ORDERED: LORazepam 1 MG Tab PO ONE ×2 (14:44→14:49)
[2019-01-09] MEDS ORDERED: Ondansetron 4 MG Tab.DIS PO ONE ×2 (14:44→14:50)
== END 2019-01-09 15:05 | disposition home or self-care (01) ==
LOC: JD.ED 11:23
DX: F10.239 Alcohol dependence with withdrawal, unspecified (principal); Y90.0 Blood alcohol level of less than 20 mg/100 ml; I10 Essential (primary) hypertension; E78.00 Pure hypercholesterolemia, unspecified; I48.91 Unspecified atrial fibrillation; K21.9 Gastro-esophageal reflux disease without esophagitis; Z79.899 Other long term (current) drug therapy
CPT/HCPCS: 36415; 80053; 80306; 83735; 85025; 93005; 99283; A9270; G0480; 93010

== ENCOUNTER 2019-07-05 12:23 | Emergency (ER) | payer OTHER, MEDICAID ==
[2019-07-05 12:30] VITALS: BP 112/65; PULSE 119
--- NOTE | 2019-07-05 12:49 | EDM.PDOC ---
ED HPI GENERAL MEDICAL PROBLEM - General Chief Complaint: Upper Extremity Injury/Pain Stated Complaint: [facility] Time Seen by Provider: 07/05/19 12:25 Source of Information: Reports: Patient, EMS Notes Reviewed, RN Notes Reviewed History Limitations: Reports: Intoxication (answers questions appropriately, but is acutely intoxicated with alcohol) - History of Present Illness INITIAL COMMENTS - FREE TEXT/NARRATIVE: Patient is a 58-year-old male who presents to the ED via [place] [facility] for the evaluation of left wrist pain. Patient states that he was getting out of [employer] in the parking lot of [employer], when he slipped on the ice, ended up catching himself with his left wrist. He does note a prior fall, with pain into his right knee, but states that he also did land on the right knee again today when he slipped on the ice. Patient is acutely intoxicated with alcohol, and admits to taking a few shots of honey azael, and a beer this morning as he was trying to nurse a hangover. Patient did not hit his head at all, and states that there was no LOC or blacking out. He is taking Xarelto for A-fib. Patient notes that he is a chronic alcohol user, and states he uses about 20 shots of alcohol daily. He denies any other cigarette or illicit drug use at this time. Patient denies any pain into the left elbow or shoulder, or pain into the right hip or right ankle. Left Wrist Pain Score (Numeric/FACES): 10 - Related Data Allergies Allergy/AdvReac Type Severity Reaction Status Date / Time No Known Allergies Allergy Verified 07/05/19 12:30 Home Meds: Home Meds Omeprazole 20 mg PO DAILY 07/07/16 [History] Folic Acid 1 mg PO DAILY 09/26/17 [History] Metoprolol Tartrate 50 mg PO BID 09/26/17 [History] Thiamine [Vitamin B-1] 100 mg PO DAILY 09/26/17 [History] Cholecalciferol (Vitamin D3) [Vitamin D] 5,000 unit PO DAILY 01/09/19 [History] Diltiazem [Diltiazem XR] 240 mg PO DAILY 01/09/19 [History] LORazepam [Ativan] 1 mg PO DAILY #18 tablet 01/09/19 [Rx] Magnesium Oxide 840 mg PO DAILY 01/09/19 [History] Multivitamin [Multivitamins] 1 each PO DAILY 01/09/19 [History] Ondansetron [Zofran ODT] 4 mg PO Q6H #10 tab.dis 01/09/19 [Rx] Rivaroxaban [Xarelto] 20 mg PO DAILY 01/09/19 [History] atorvaSTATin [Lipitor] 10 mg PO BEDTIME 01/09/19 [History] predniSONE [Prednisone] 40 mg PO DAILY #10 tablet 01/09/19 [Rx] Past Medical History - Past Health History Medical/Surgical History: Denies Medical/Surgical History HEENT History: Reports: Cataract Cardiovascular History: Reports: Afib, High Cholesterol, Hypertension Other Cardiovascular History: hx/o a-fib/RVR Respiratory History: Reports: COPD, Other (See Below) Other Respiratory History: 07/24/16 admitted with pneumonia Gastrointestinal History: Reports: GERD Genitourinary History: Reports: Renal Calculus Musculoskeletal History: Reports: Fracture Other Musculoskeletal History: rigth foot fracture 20 yrs ago Neurological History: Reports: Other (See Below) Other Neuro History: With withdrawal for alcohol Psychiatric History: Reports: Addiction Endocrine/Metabolic History: Reports: Obesity/BMI 30+ Hematologic History: Reports: None Other Immunologic History: pt states that a doctor told him he had hep c once but his last check was ok Oncologic (Cancer) History: Reports: None Dermatologic History: Reports: None - Infectious Disease History Infectious Disease History: Reports: Hepatitis C, MRSA Other Infectious Disease History: Hep C per Demond Ponce hospitalist/[place], 06/2016. - Past Surgical History Musculoskeletal Surgical History: Reports: ORIF, Other (See Below) Social & Family History - Family History Family Medical History: Noncontributory Neurological: Reports: CVA Endocrine/Metabolic: Reports: Diabetes, type II Hematologic: Reports: Other (See Below) Other Hematologic Family History: hepatitias c Immunologic: Reports: None Oncologic: Reports: Leukemia - Tobacco Use Smoking Status *Q: Never Smoker - Caffeine Use Caffeine Use: Reports: None - Recreational Drug Use Recreational Drug Use: No - Living Situation & Occupation Living situation: Reports: , Alone Occupation: Unemployed Review of Systems - Review of Systems Review Of Systems: Comprehensive ROS is negative, except as noted in HPI. Eyes: Denies: Blurred Vision, Decreased Acuity Ears: Denies: Dizziness Nose: Denies: Epistaxis, Clear Discharge, Serosanguinous Discharge Respiratory: Denies: Shortness of Breath Cardiovascular: Denies: Chest Pain Musculoskeletal: Reports: Joint Pain (Left wrist, Right knee) ED EXAM, GENERAL - Physical Exam Exam: See Below Exam Limited By: Intoxication (pt follows commands appropriately) General Appearance: Alert, WD/WN, No Apparent Distress Eye Exam: Bilateral Eye: EOMI, Normal Inspection, PERRL Ear Exam: Bilateral Ear: TM normal Nose: Normal Inspection, Normal Mucosa, No Blood Throat/Mouth: Normal Inspection, Normal Lips, Normal Teeth, Normal Gums, Normal Oropharynx, Normal Voice, No Airway Compromise Head: Atraumatic, Normocephalic Neck: Normal Inspection, Supple, Non-Tender, Full Range of Motion Respiratory/Chest: No Respiratory Distress, Lungs Clear, Normal Breath Sounds, No Accessory Muscle Use, Chest Non-Tender Cardiovascular: Normal Peripheral Pulses, Regular Rate, Rhythm, No Edema, No Murmur Peripheral Pulses: 3+: Radial (L), Radial (R), Dorsalis Pedis (L), Dorsalis Pedis (R) GI/Abdominal: Normal Bowel Sounds, Soft, Non-Tender, No Distention, No Mass Extremities: Normal Inspection, Normal Capillary Refill, Limited Range of Motion (d/t pain) Neurological: Alert, Oriented, No Motor/Sensory Deficits Psychiatric: Normal Affect (acutely intoxicated with alcohol), Normal Mood Skin Exam: Warm, Dry, Intact, Normal Color, No Rash ED TRAUMA EXTREMITY PROCEDURES - Splinting Left Upper Extremity Splint Site: Left wrist Pre-Procedure NV Status: Normal Post-Procedure NV Status: Normal Splint Material: Fiberglass Splint Design: Volar (short arm) Applied & Form Fitted By: Provider, Nurse Provider Post-Splint Application NV Check: NV Status Normal, Good Position Complications: No Course - Vital Signs Last Recorded V/S: Last Vital Signs Temp 97.6 F 07/05/19 12:27 Pulse 119 H 07/05/19 12:27 Resp 16 07/05/19 12:27 BP 112/65 07/05/19 12:27 Pulse Ox 95 07/05/19 12:27 - Orders/Labs/Meds Orders: Active Orders 24 hr Category Date Time Status Knee 3V Rt [CR] Stat Exams 07/05/19 12:41 Ordered Wrist Comp Min 3V Lt [CR] Stat Exams 07/05/19 12:41 Ordered - Re-Assessments/Exams Free Text/Narrative Re-Assessment/Exam: 07/05/19 12:53 Patient presents to the ED for evaluation of left wrist pain. We will get a left wrist x-ray, and a right knee x-ray for evaluation. There is no obvious deformity or swelling noted to either joint however. Patient's physical exam is WNL as far as neuro status goes. There is no obvious trauma to his head that would suggest that he hit his head. Pt states that he fell forward out of the taxi, and landed on hands and knees. Will not obtain head CT at this time. 07/05/19 13:34 X-rays of the wrist and knee are done, knee appears to be within normal limits, and the wrist x-ray demonstrates a ulnar styloid fracture with a distal impacted radially and slightly dorsally displaced fracture. X-rays were reviewed by myself and Dr. Nava. He suggests using a volar short arm type splint, that will not extend past the elbow at this time. We'll splint the gentleman and have him follow up with Ortho. Due to his chronic history of alcohol use, he will not be given a prescription for narcotic medications at this time, as I suspect this would cause increased sedation as I do not believe he would stop drinking or taking his medications. Departure - Departure Time of Disposition: 13:38 Disposition: Home, Self-Care 01 Condition: Fair Clinical Impression: Fracture of radius and ulna Qualifiers: Encounter type: initial encounter Fracture type: closed Laterality: left Qualified Code(s): S52.92XA - Unspecified fracture of left forearm, initial encounter for closed fracture Right knee pain Qualifiers: Chronicity: unspecified Qualified Code(s): M25.561 - Pain in right knee - Discharge Information *PRESCRIPTION DRUG MONITORING PROGRAM REVIEWED*: No *COPY OF PRESCRIPTION DRUG MONITORING REPORT IN PATIENT MCKENZIE: No Instructions: Wrist Fracture Treated With Immobilization, [id number] Referrals: Geneva Gutiérrez MD [Primary Care Provider] - Forms: ED Department Discharge Additional Instructions: You have been evaluated in the ED for your Left wrist injury. Your x-ray demonstrated you have a fracture of your left distal ulna and left distal radius in your left wrist. The x-ray of your right knee did not demonstrate any sign of an acute fracture. Please use ice as tolerated to the affected area. You may take Tylenol 500 mg q6 hrs for pain relief. Do not exceed 4000mg Tylenol in a 24 hour time period. Strongly recommend that you try to cut back on alcohol consumption while taking Tylenol, as this can be quite hard on your liver. Please call Ortho for follow-up and further evaluation Dr. Cordova is our orthopedic surgeon, his office number is [phone]. Please call and set up an appointment as soon as possible for further management. Please return to ED if your symptoms should change or worsen. - My Orders Last 24 Hours: My Active Orders 07/05/19 12:41 Knee 3V Rt [CR] Stat Wrist Comp Min 3V Lt [CR] Stat - Assessment/Plan Last 24 Hours: My Active Orders 07/05/19 12:41 Knee 3V Rt [CR] Stat Wrist Comp Min 3V Lt [CR] Stat
--- NOTE | 2019-07-08 06:33 | CR ---
Right knee: AP, lateral and sunrise patellar views of the right knee were obtained. Comparison: No prior right knee exam. Joint effusion is seen. Small bony density is noted off the upper medial epicondyle compatible with an old avulsion fracture. Minimal osteophytes are noted off the medial joint. Minimal osteophytes are noted within the patellofemoral joint. No definite acute fracture or dislocation is seen. Impression: 1. Joint effusion. 2. Mild degenerative change. Old avulsion injury as noted above. 3. No acute bony abnormality is seen. Note: If patient remains symptomatic, MRI study could be obtained to evaluate for internal derangement given the joint effusion. Diagnostic code #3 This report was dictated in [place] [employer] Time
--- NOTE | 2019-07-08 06:33 | CR ---
Left wrist: Four views of the left wrist were obtained. Comparison: No prior wrist exam. Impacted distal radial fracture is noted. Posterior tilt of the distal radial articular margin is noted. Articular extension is also seen as well as displacement of the radial styloid process. Fracture is noted within the base of the ulnar styloid process. Degenerative change is noted within the CMC joint of the thumb. Old healed distal right 5th metacarpal fracture is noted. Soft tissue swelling is seen. Impression: 1. Impacted and displaced distal radial fracture. 2. Ulnar styloid avulsion fracture. 3. Other findings as noted above. Diagnostic code #3 This report was dictated in [place] [employer] Time
== END 2019-07-05 14:25 | disposition home or self-care (01) ==
LOC: JD.ED 12:23
DX: S52.612A Displaced fracture of left ulna styloid process, initial encounter for closed fracture (principal); S52.502A Unspecified fracture of the lower end of left radius, initial encounter for closed fracture; M25.561 Pain in right knee; I10 Essential (primary) hypertension; E78.00 Pure hypercholesterolemia, unspecified; I48.91 Unspecified atrial fibrillation; J44.9 Chronic obstructive pulmonary disease, unspecified; K21.9 Gastro-esophageal reflux disease without esophagitis; E66.9 Obesity, unspecified; Z68.41 Body mass index [BMI] 40.0-44.9, adult; Z79.01 Long term (current) use of anticoagulants; Z79.899 Other long term (current) drug therapy; W00.0XXA Fall on same level due to ice and snow, initial encounter; Y92.481 Parking lot as the place of occurrence of the external cause
CPT/HCPCS: 29125; 73110-26-LT; 73110-LT; 73562-26-RT; 73562-RT; 99283-25; 99284

== ENCOUNTER 2019-07-25 06:52 | Inpatient (IN) | payer OTHER, MEDICAID ==
[2019-07-25] MEDS ORDERED: Sodium Chloride 0.9% 10 ML Syringe FLUSH PRN (07:34)
[2019-07-25] MEDS ORDERED: Diltiazem 50 MG/10 ML SDV IVPUSH ONE (07:37)
[2019-07-25] MEDS ORDERED: Sodium Chloride 0.9% 1,000 ML IV SCH (07:45)
--- NOTE | 2019-07-25 07:45 | EDM.PDOC ---
ED HPI GENERAL MEDICAL PROBLEM - General Chief Complaint: Upper Extremity Injury/Pain Stated Complaint: LT ARM PAIN POST SURGERY Time Seen by Provider: 07/25/19 07:25 Source of Information: Reports: Patient History Limitations: Reports: No Limitations - History of Present Illness INITIAL COMMENTS - FREE TEXT/NARRATIVE: Pt is a 58 year old male who presents with concerns regarding redness and swelling in his left lower arm. Pt states that he had ORIF done on his wrist on Monday of this week with Dr. Haq at [facility] in [place]. He states that when he woke up this morning, the arm was red and swollen. He states that he had a nerve block done with the sx and is just starting to get feeling back in his arm now. He is able to move all of his digits and states that he can feel touch. He states that he was taken off many of his medications except 4. He states he has been taking his metoprolol and diltiazem; however, he has not taken them yet today. He normally takes both medications at 0900. He states he stopped taking his Xarelto last and has not taken it since sx. He is unsure of when he is supposed to start taking it again. Pt is a chronic ETOH user. He states that he had been sober for 2 weeks prior to yesterday. Yesterday he drank 20 shots of hard liquor. He has a dx of COPD and states that he is chronically SOB with exertion and denies any worsening in SOB. Denies chest pain, nausea or vomiting. - Related Data Allergies Allergy/AdvReac Type Severity Reaction Status Date / Time No Known Allergies Allergy Verified 07/25/19 07:39 Home Meds: Home Meds Omeprazole 20 mg PO DAILY 07/07/16 [History] Folic Acid 1 mg PO DAILY 09/26/17 [History] Metoprolol Tartrate 50 mg PO BID 09/26/17 [History] Thiamine [Vitamin B-1] 100 mg PO DAILY 09/26/17 [History] Cholecalciferol (Vitamin D3) [Vitamin D] 5,000 unit PO DAILY 01/09/19 [History] Diltiazem [Diltiazem XR] 240 mg PO DAILY 01/09/19 [History] LORazepam [Ativan] 1 mg PO DAILY #18 tablet 01/09/19 [Rx] Magnesium Oxide 840 mg PO DAILY 01/09/19 [History] Multivitamin [Multivitamins] 1 each PO DAILY 01/09/19 [History] Ondansetron [Zofran ODT] 4 mg PO Q6H #10 tab.dis 01/09/19 [Rx] Rivaroxaban [Xarelto] 20 mg PO DAILY 01/09/19 [History] atorvaSTATin [Lipitor] 10 mg PO BEDTIME 01/09/19 [History] predniSONE [Prednisone] 40 mg PO DAILY #10 tablet 01/09/19 [Rx] Past Medical History - Past Health History Medical/Surgical History: Denies Medical/Surgical History HEENT History: Reports: Cataract Cardiovascular History: Reports: Afib, High Cholesterol, Hypertension Other Cardiovascular History: hx/o a-fib/RVR Respiratory History: Reports: COPD, Other (See Below) Other Respiratory History: 07/24/16 admitted with pneumonia Gastrointestinal History: Reports: GERD Genitourinary History: Reports: Renal Calculus Musculoskeletal History: Reports: Fracture Other Musculoskeletal History: rigth foot fracture 20 yrs ago Neurological History: Reports: Other (See Below) Other Neuro History: With withdrawal for alcohol Psychiatric History: Reports: Addiction Endocrine/Metabolic History: Reports: Obesity/BMI 30+ Hematologic History: Reports: None Other Immunologic History: pt states that a doctor told him he had hep c once but his last check was ok Oncologic (Cancer) History: Reports: None Dermatologic History: Reports: None - Infectious Disease History Infectious Disease History: Reports: Hepatitis C, MRSA Other Infectious Disease History: Hep C per [facility] P[facility] hospitalist/[place], 06/2016. - Past Surgical History Musculoskeletal Surgical History: Reports: ORIF, Other (See Below) Social & Family History - Family History Family Medical History: Noncontributory Neurological: Reports: CVA Endocrine/Metabolic: Reports: Diabetes, type II Hematologic: Reports: Other (See Below) Other Hematologic Family History: hepatitias c Immunologic: Reports: None Oncologic: Reports: Leukemia - Caffeine Use Caffeine Use: Reports: None - Living Situation & Occupation Living situation: Reports: , Alone Occupation: Unemployed Review of Systems - Review of Systems Review Of Systems: See Below Constitutional: Reports: No Symptoms. Denies: Chills, Fever Eyes: Reports: No Symptoms Ears: Reports: No Symptoms Nose: Reports: No Symptoms Mouth/Throat: Reports: No Symptoms Respiratory: Reports: Shortness of Breath. Denies: Wheezing, Cough Cardiovascular: Reports: No Symptoms. Denies: Chest Pain, Lightheadedness, Palpitations GI/Abdominal: Reports: No Symptoms Genitourinary: Reports: No Symptoms Musculoskeletal: Reports: Arm Pain (left) Skin: Reports: No Symptoms Neurological: Reports: No Symptoms Psychiatric: Reports: No Symptoms ED EXAM, GENERAL - Physical Exam Exam: See Below Exam Limited By: No Limitations General Appearance: Alert, WD/WN, No Apparent Distress Head: Atraumatic, Normocephalic Respiratory/Chest: No Respiratory Distress, Lungs Clear, No Accessory Muscle Use , Chest Non-Tender, Decreased Breath Sounds (throughout). No: Respiratory Distress, Wheezing Cardiovascular: Normal Peripheral Pulses, No Murmur, Irregularly Irregular GI/Abdominal: Normal Bowel Sounds, Soft, Non-Tender, No Organomegaly, No Distention Extremities: Other (2+ edema to left upper extremity extended past the elbow. No redness or warmth present. Capillary refill <2 seconds to left fingers. Fingers are warm and pt has full ROM and sensation.) Neurological: Alert, Oriented, Normal Cognition Psychiatric: Normal Affect, Normal Mood Skin Exam: Warm, Intact, Normal Color, No Rash EKG INTERPRETATION EKG Date: 07/25/19 Time: 07:17 Rhythm: A-Fib Rate (Beats/Min): 131 Skipwith: Normal P-Wave: Absent QRS: Normal ST-T: Other (depressed in V3) QT: Prolonged (516) Course - Vital Signs Last Recorded V/S: Last Vital Signs Temp 98.1 F 07/25/19 12:03 Pulse 94 07/25/19 12:03 Resp 18 07/25/19 12:03 BP 132/88 07/25/19 12:03 Pulse Ox 95 07/25/19 12:03 - Orders/Labs/Meds Orders: Active Orders 24 hr Category Date Time Status Patient Status [ADT] Routine ADT 07/25/19 11:36 Active CULTURE BLOOD [BC] Stat Lab 07/25/19 11:15 Received CULTURE BLOOD [BC] Stat Lab 07/25/19 11:30 Received Sodium Chloride 0.9% [Normal Saline] 1,000 ml Med 07/25/19 07:45 Active IV ASDIRECTED Sodium Chloride 0.9% [Saline Flush] Med 07/25/19 07:34 Active 10 ml FLUSH ASDIRECTED PRN Blood Culture x2 Reflex Set [OM.PC] Stat Oth 07/25/19 10:15 Ordered Peripheral IV Insertion Adult [OM.PC] Stat Oth 07/25/19 07:35 Ordered Medication Orders Sodium Chloride (Normal Saline) 1,000 mls @ 999 mls/hr IV ASDIRECTED DIAMANTE Last Admin: 07/25/19 07:48 Dose: 999 mls/hr Sodium Chloride (Saline Flush) 10 ml FLUSH ASDIRECTED PRN PRN Reason: Keep Vein Open Last Admin: 07/25/19 07:48 Dose: 10 ml Labs: Laboratory Tests 07/25/19 07/25/19 07/25/19 Range/Units 07:26 07:26 07:26 WBC 12.83 H (4.23-9.07) K/mm3 RBC 4.35 L (4.63-6.08) M/mm3 Hgb 12.7 L D (13.7-17.5) gm/dl Hct 38.1 L (40.1-51.0) % MCV 87.6 (79.0-92.2) fl MCH 29.2 (25.7-32.2) pg MCHC 33.3 (32.2-35.5) g/dl RDW Std Deviation 43.4 (35.1-43.9) fL Plt Count 190 (163-337) K/mm3 MPV 9.1 L (9.4-12.3) fl Neut % (Auto) 81.5 H (34.0-67.9) % Lymph % (Auto) 10.0 L (21.8-53.1) % [place] % (Auto) 7.8 (5.3-12.2) % Eos % (Auto) 0.3 L (0.8-7.0) Baso % (Auto) 0.2 (0.1-1.2) % Neut # (Auto) 10.46 H (1.78-5.38) K/mm3 Lymph # (Auto) 1.28 L (1.32-3.57) K/mm3 [place] # (Auto) 1.00 H (0.30-0.82) K/mm3 Eos # (Auto) 0.04 (0.04-0.54) K/mm3 Baso # (Auto) 0.02 (0.01-0.08) K/mm3 Manual Slide Review Normal smear PT 13.6 H (9.7-12.0) SECONDS INR 1.26 Sodium 133 L (136-145) mEq/L Potassium 3.3 L (3.5-5.1) mEq/L Chloride 98 (98-107) mEq/L Carbon Dioxide 24 (21-32) mEq/L Anion Gap 14.3 (5-15) BUN 13 (7-18) mg/dL Creatinine 1.1 (0.7-1.3) mg/dL Est Cr Clr Drug Dosing 74.66 mL/min Estimated GFR (MDRD) > 60 (>60) mL/min BUN/Creatinine Ratio 11.8 L (14-18) Glucose 127 H (74-106) mg/dL Lactic Acid (0.4-2.0) mmol/L Calcium 8.9 (8.5-10.1) mg/dL Total Bilirubin 1.1 H (0.2-1.0) mg/dL AST 51 H (15-37) U/L ALT 57 (16-63) U/L Alkaline Phosphatase 85 (46-116) U/L Troponin I (0.00-0.056) ng/mL NT-Pro-B Natriuret Pep (0-125) pg/mL Total Protein 7.0 (6.4-8.2) g/dl Albumin 3.4 (3.4-5.0) g/dl Globulin 3.6 gm/dL Albumin/Globulin Ratio 0.9 L (1-2) 07/25/19 07/25/19 07/25/19 Range/Units 07:28 11:15 11:15 WBC (4.23-9.07) K/mm3 RBC (4.63-6.08) M/mm3 Hgb (13.7-17.5) gm/dl Hct (40.1-51.0) % MCV (79.0-92.2) fl MCH (25.7-32.2) pg MCHC (32.2-35.5) g/dl RDW Std Deviation (35.1-43.9) fL Plt Count (163-337) K/mm3 MPV (9.4-12.3) fl Neut % (Auto) (34.0-67.9) % Lymph % (Auto) (21.8-53.1) % Con[place] % (Auto) (5.3-12.2) % Eos % (Auto) (0.8-7.0) Baso % (Auto) (0.1-1.2) % Neut # (Auto) (1.78-5.38) K/mm3 Lymph # (Auto) (1.32-3.57) K/mm3 [place] # (Auto) (0.30-0.82) K/mm3 Eos # (Auto) (0.04-0.54) K/mm3 Baso # (Auto) (0.01-0.08) K/mm3 Manual Slide Review PT (9.7-12.0) SECONDS INR Sodium (136-145) mEq/L Potassium (3.5-5.1) mEq/L Chloride (98-107) mEq/L Carbon Dioxide (21-32) mEq/L Anion Gap (5-15) BUN (7-18) mg/dL Creatinine (0.7-1.3) mg/dL Est Cr Clr Drug Dosing mL/min Estimated GFR (MDRD) (>60) mL/min BUN/Creatinine Ratio (14-18) Glucose (74-106) mg/dL Lactic Acid 1.0 (0.4-2.0) mmol/L Calcium (8.5-10.1) mg/dL Total Bilirubin (0.2-1.0) mg/dL AST (15-37) U/L ALT (16-63) U/L Alkaline Phosphatase (46-116) U/L Troponin I 0.017 (0.00-0.056) ng/mL NT-Pro-B Natriuret Pep 2030 H (0-125) pg/mL Total Protein (6.4-8.2) g/dl Albumin (3.4-5.0) g/dl Globulin gm/dL Albumin/Globulin Ratio (1-2) Meds: Medications Generic Name Dose Route Start Last Admin Trade Name Freq PRN Reason Stop Dose Admin Sodium Chloride 1,000 mls @ 999 mls/hr 07/25/19 07:45 07/25/19 07:48 Normal Saline IV 999 mls/hr ASDIRECTED DIAMANTE Administration Sodium Chloride 10 ml 07/25/19 07:34 07/25/19 07:48 Saline Flush FLUSH 10 ml ASDIRECTED PRN Administration Keep Vein Open Discontinued Medications Generic Name Dose Route Start Last Admin Trade Name Meredith PRN Reason Stop Dose Admin Diltiazem HCl 10 mg 07/25/19 07:37 07/25/19 07:48 Cardizem IVPUSH 07/25/19 07:38 10 mg ONETIME ONE Administration Diltiazem HCl 240 mg 07/25/19 08:12 07/25/19 08:22 Dilacor Xr PO 07/25/19 08:13 240 mg ONETIME ONE Administration Levofloxacin/Dextrose 750 mg/ 150 mls @ 100 mls/hr 07/25/19 10:57 07/25/19 11 :47 Premix IV 07/25/19 12:26 Not Given ONETIME ONE Ceftriaxone Sodium 1 gm/ 100 mls @ 200 mls/hr 07/25/19 11:10 07/25/19 11:55 Sodium Chloride IV 07/25/19 11:39 200 mls/hr ONETIME ONE Administration Metoprolol Tartrate 75 mg 07/25/19 08:53 07/25/19 09:23 Lopressor PO 07/25/19 08:54 75 mg ONETIME ONE Administration Oxycodone/Acetaminophen 1 tab 07/25/19 11:49 07/25/19 11:54 Percocet 325-5 Mg PO 07/25/19 11:50 1 tab ONETIME ONE Administration Potassium Chloride 40 meq 07/25/19 08:53 07/25/19 09:23 Klor-Con M20 PO 07/25/19 08:54 40 meq ONETIME ONE Administration - Re-Assessments/Exams Free Text/Narrative Re-Assessment/Exam: On exam, there is mild edema to LUE; however, there is no redness or warmth to the area. Splint intact and fit appropriately. CMS intact distal to splint. Pt's HR on triage was in the 140's afib. Pt verbalized that he drank a significant amount of ETOH yesterday and "has a hang-over". He has not take any of his oral medications including his Cardizem ER 240mg and his Metoprolol 75mg. EKG showed afib at 131. Pt denies any chest pain or SOB out of the normal for him. His SpO2 on triage after ambulating to the room was 83% on RA. O2 was applied at 2L/NC with improvement to 92% noted. I have ordered cardizem 10 mg IVP now, 1L bolus of NS, as well as his home dose of Cardizem PO. Will check CBC, CMP, and troponin, as well as a 2V chest xray. Free Text/Narrative Re-Assessment/Exam: 07/25/19 09:06 Pt HR 100-110 afib. I have ordered his home dose of Metoprolol 75mg PO to be given now. His K+ was also 3.3. I have ordered KCl 40 meq po. 07/25/19 1000 Pt HR maintaining 95-105 and BP is stable. CXR does show a left lower lobe infiltrate. SpO2 90-92% on 2L/NC but decreases to 83% on RA. Pt will need to be admitted for pneumonia. I have ordered a lactic acid, blood cultures x 2, as well as a BNP. I will order Levaquin to be given after the blood cultures. 07/25/[address] Griffith and he will admit the pt to inpt [facility] with tlm. He request to give Rocephin 1g IV instead of the levaquin. Departure - Departure Time of Disposition: 11:00 Disposition: Admitted As Inpatient 65 Condition: Fair Clinical Impression: Pneumonia, Afib, Atrial fibrillation - Discharge Information *PRESCRIPTION DRUG MONITORING PROGRAM REVIEWED*: No *COPY OF PRESCRIPTION DRUG MONITORING REPORT IN PATIENT MCKENZIE: No Sepsis Event Note - Focused Exam Vital Signs: Vital Signs Temp Pulse Pulse Resp BP BP Pulse Ox 07/25/19 09:23 122 H 116/89 07/25/19 07:35 96.5 F 140 H 22 H 125/82 83 L Date Exam was Performed: 07/25/19 Time Exam was Performed: 12:29 - My Orders Last 24 Hours: My Active Orders 07/25/19 07:34 Sodium Chloride 0.9% [Saline Flush] 10 ml FLUSH ASDIRECTED PRN 07/25/19 07:35 Peripheral IV Insertion Adult [OM.PC] Stat 07/25/19 07:45 Sodium Chloride 0.9% [Normal Saline] 1,000 ml IV ASDIRECTED 07/25/19 10:15 Blood Culture x2 Reflex Set [OM.PC] Stat 07/25/19 11:15 CULTURE BLOOD [BC] Stat 07/25/19 11:30 CULTURE BLOOD [BC] Stat 07/25/19 11:36 Patient Status [ADT] Routine - Assessment/Plan Last 24 Hours: My Active Orders 07/25/19 07:34 Sodium Chloride 0.9% [Saline Flush] 10 ml FLUSH ASDIRECTED PRN 07/25/19 07:35 Peripheral IV Insertion Adult [OM.PC] Stat 07/25/19 07:45 Sodium Chloride 0.9% [Normal Saline] 1,000 ml IV ASDIRECTED 07/25/19 10:15 Blood Culture x2 Reflex Set [OM.PC] Stat 07/25/19 11:15 CULTURE BLOOD [BC] Stat 07/25/19 11:30 CULTURE BLOOD [BC] Stat 07/25/19 11:36 Patient Status [ADT] Routine
[2019-07-25] MEDS ORDERED: Diltiazem 240 MG Cap.ER PO ONE (08:12)
[2019-07-25] MEDS ORDERED: Potassium Chloride 20 MEQ Tab.ER PO ONE (08:53)
[2019-07-25] MEDS ORDERED: Metoprolol Tartrate 25 MG Tab PO ONE (08:53)
--- NOTE | 2019-07-25 09:52 | CR ---
Chest: Two views of the chest were obtained. Comparison: Prior chest x-ray of 07/19/19. Parenchymal density is noted within the left lung base. Lung markings on the right side appear to be chronic. No other acute parenchymal changes seen. Heart size is normal. Upper mediastinum is normal. Bony structures show mild degenerative change within the spine. Impression: 1. Findings suspicious for left lower lobe pneumonia. Please correlate with the patient's symptoms. 2. Other findings believed to be chronic. Diagnostic code #3 This report was dictated in [place] Standard Time
[2019-07-25] MEDS ORDERED: Levofloxacin/Dextrose 5%-Water 750 MG in Premix Bag 1 BAG IV ONE (10:57)
[2019-07-25] MEDS ORDERED: cefTRIAXone 1 GM in Sodium Chloride 0.9% 100 ML IV ONE (11:10)
[2019-07-25] MEDS ORDERED: Acetaminophen/oxyCODONE 325-5 MG Tab PO ONE (11:49)
[2019-07-25] MEDS ORDERED: LORazepam 1 MG Tab PO PRN ×2 (13:57→14:31)
--- NOTE | 2019-07-25 14:43 | PCM.HP.2 ---
H&P History of Present Illness - General Date of Service: 07/25/19 Admit Problem/Dx: Admission Diagnosis/Problem Admission Diagnosis/Problem Pneumonia - History of Present Illness Initial Comments - Free Text/Narative: 58-year-old male that fractured his left arm 19 days ago had ORIF of left intra- articular distal radial fracture 2 days ago. Patient states that he is a heavy alcohol user generally drinking 12 shots of kimo and 1 [place] beer which is 24 ounces of 8.1% alcohol. He stopped drinking 14 days prior to surgery and yesterday drank 20 shots of kimo. He states that he did not pass out but did notice he started coughing last night. He states it was a hard nonproductive cough and he developed a sore throat and frontal headache. He woke up this morning concerned about his left arm getting infected because he saw a red line traveling up his arm. He did note that his heart seemed to be racing. He denied any fever, chills, or night sweats. He denies any productive sputum. He did not take his any of his medication this morning. He has been off his Xarelto since Monday, 3 days ago. He has been greater than 48 hours since surgery off of his Xarelto. Surgery was done as an outpatient with LMA. In the emergency room he was found to be in A. fib with RVR. EKG was done at 717 with a ventricular rate of 131 bpm. He had some depression in V3 and prolonged QT due to rate otherwise normal. Patient was given Cardizem 10 mg IV push, 1 L saline, potassium chloride 40 mEq p.o. for potassium of 3.3, his home Cardizem CD of 240 mg and metoprolol tartrate 75 mg. Chest x-ray was also performed which showed a left lower lobe pneumonia, therefore he was given ceftriaxone 1 g. Blood cultures were drawn. Heart rate did come down to 100-1 10 and he was transferred to the floor for admission. Patient was found to be hypoxic on admission at 83 and was put on 2 L nasal cannula. Emergency room labs: White count 12.8, hemoglobin 12.7, platelets 190, INR 1.26 , sodium 133, potassium 3.1, chloride 98, anion gap 14.3, BUN 13, creatinine 1.1 , glucose 127, total bilirubin 1.1, AST 51, ALT 57, alkaline phosphatase 85, lactic acid 1.0, troponin negative at 0.017, proBNP 2030. - Related Data Allergies/Adverse Reactions: Allergies Allergy/AdvReac Type Severity Reaction Status Date / Time No Known Allergies Allergy Verified 07/25/19 12:57 Home Medications: Home Meds Omeprazole 20 mg PO DAILY 07/07/16 [History] Folic Acid 1 mg PO DAILY 09/26/17 [History] Metoprolol Tartrate 50 mg PO BID 09/26/17 [History] Thiamine [Vitamin B-1] 100 mg PO DAILY 09/26/17 [History] Cholecalciferol (Vitamin D3) [Vitamin D] 5,000 unit PO DAILY 01/09/19 [History] Diltiazem [Diltiazem XR] 240 mg PO DAILY 01/09/19 [History] Magnesium Oxide 840 mg PO DAILY 01/09/19 [History] Multivitamin [Multivitamins] 1 each PO DAILY 01/09/19 [History] Rivaroxaban [Xarelto] 20 mg PO DAILY 01/09/19 [History] atorvaSTATin [Lipitor] 10 mg PO BEDTIME 01/09/19 [History] Past Medical History - Past Health History Medical/Surgical History: Denies Medical/Surgical History HEENT History: Reports: Cataract Cardiovascular History: Reports: Afib, High Cholesterol, Hypertension Other Cardiovascular History: hx/o a-fib/RVR Respiratory History: Reports: COPD, Other (See Below) Other Respiratory History: 07/24/16 admitted with pneumonia Gastrointestinal History: Reports: GERD Genitourinary History: Reports: Renal Calculus Musculoskeletal History: Reports: Fracture Other Musculoskeletal History: rigth foot fracture 20 yrs ago Neurological History: Reports: Other (See Below) Other Neuro History: With withdrawal for alcohol Psychiatric History: Reports: Addiction Other Psychiatric History: alcohol Endocrine/Metabolic History: Reports: Obesity/BMI 30+ Hematologic History: Reports: None Other Immunologic History: pt states that a doctor told him he had hep c once but his last check was ok Oncologic (Cancer) History: Reports: None Dermatologic History: Reports: None - Infectious Disease History Infectious Disease History: Reports: Hepatitis C, MRSA Other Infectious Disease History: Hep C per Demond Ponce hospitalist/[place], 06/2016. - Past Surgical History Musculoskeletal Surgical History: Reports: ORIF, Other (See Below) Social & Family History - Family History Family Medical History: Noncontributory Neurological: Reports: CVA Endocrine/Metabolic: Reports: Diabetes, type II Hematologic: Reports: Other (See Below) Other Hematologic Family History: hepatitias c Immunologic: Reports: None Oncologic: Reports: Leukemia - Tobacco Use Smoking Status *Q: Former Smoker Used Tobacco, but Quit: Yes Month/Year Tobacco Last Used: 2017 - Caffeine Use Caffeine Use: Reports: None - Alcohol Use Date of Last Drink: 07/25/19 Time of Last Drink: 01:00 - Recreational Drug Use Recreational Drug Use: No - Living Situation & Occupation Living situation: Reports: , Alone Occupation: Unemployed H&P Review of Systems - Review of Systems: Review Of Systems: Comprehensive ROS is negative, except as noted in HPI. Exam - Exam Exam: See Below - Vital Signs Vital Signs: Last Vital Signs Temp 98.1 F 07/25/19 12:03 Pulse 94 07/25/19 12:03 Resp 18 07/25/19 12:03 BP 132/88 07/25/19 12:03 Pulse Ox 95 07/25/19 12:03 Weight: 268 lb 11.2 oz - Exam Quality Assessment: Supplemental Oxygen General: Alert, Oriented, 4 HEENT: Conjunctiva Clear, EACs Clear, Hearing Intact, Mucosa Moist & [place] Neck: Supple, Trachea Midline, 2 Lungs: Clear to Auscultation, Normal Respiratory Effort Cardiovascular: Regular Rate, Irregular Rhythm GI/Abdominal Exam: Normal Bowel Sounds, Soft, Non-Tender, No Organomegaly, No Distention, No Abnormal Bruit, No Mass, Pelvis Stable (Male) Exam: No Hernia, Normal Inspection, Normal Prostate, Circumcised Back Exam: Normal Inspection Extremities: Normal Inspection, Normal Range of Motion, Pedal Edema (Scant pedal edema), Other (Left hand in splint with no significant erythema or warmth. ) Peripheral Pulses: 2+: Posterior Tibial (L), Posterior Tibial (R), Dorsalis Pedis (L), Dorsalis Pedis (R) Skin: Warm, Dry, Intact Neurological: Cranial Nerves Intact Neuro Extensive - Mental Status: Alert, Oriented x3 Neuro Extensive - Motor, Sensory, Reflexes: CN II-XII Intact Psychiatric: Alert, Normal Affect, Normal Mood - Patient Data Lab Results Last 24 hrs: Laboratory Results - last 24 hr 07/25/19 07/25/19 07/25/19 Range/Units 07:26 07:26 07:26 WBC 12.83 H (4.23-9.07) K/mm3 RBC 4.35 L (4.63-6.08) M/mm3 Hgb 12.7 L D (13.7-17.5) gm/dl Hct 38.1 L (40.1-51.0) % MCV 87.6 (79.0-92.2) fl MCH 29.2 (25.7-32.2) pg MCHC 33.3 (32.2-35.5) g/dl RDW Std Deviation 43.4 (35.1-43.9) fL Plt Count 190 (163-337) K/mm3 MPV 9.1 L (9.4-12.3) fl Neut % (Auto) 81.5 H (34.0-67.9) % Lymph % (Auto) 10.0 L (21.8-53.1) % [place] % (Auto) 7.8 (5.3-12.2) % Eos % (Auto) 0.3 L (0.8-7.0) Baso % (Auto) 0.2 (0.1-1.2) % Neut # (Auto) 10.46 H (1.78-5.38) K/mm3 Lymph # (Auto) 1.28 L (1.32-3.57) K/mm3 [place] # (Auto) 1.00 H (0.30-0.82) K/mm3 Eos # (Auto) 0.04 (0.04-0.54) K/mm3 Baso # (Auto) 0.02 (0.01-0.08) K/mm3 Manual Slide Review Normal smear PT 13.6 H (9.7-12.0) SECONDS INR 1.26 Sodium 133 L (136-145) mEq/L Potassium 3.3 L (3.5-5.1) mEq/L Chloride 98 (98-107) mEq/L Carbon Dioxide 24 (21-32) mEq/L Anion Gap 14.3 (5-15) BUN 13 (7-18) mg/dL Creatinine 1.1 (0.7-1.3) mg/dL Est Cr Clr Drug Dosing 74.66 mL/min Estimated GFR (MDRD) > 60 (>60) mL/min BUN/Creatinine Ratio 11.8 L (14-18) Glucose 127 H (74-106) mg/dL Lactic Acid (0.4-2.0) mmol/L Calcium 8.9 (8.5-10.1) mg/dL Total Bilirubin 1.1 H (0.2-1.0) mg/dL AST 51 H (15-37) U/L ALT 57 (16-63) U/L Alkaline Phosphatase 85 (46-116) U/L Troponin I (0.00-0.056) ng/mL NT-Pro-B Natriuret Pep (0-125) pg/mL Total Protein 7.0 (6.4-8.2) g/dl Albumin 3.4 (3.4-5.0) g/dl Globulin 3.6 gm/dL Albumin/Globulin Ratio 0.9 L (1-2) 07/25/19 07/25/19 07/25/19 Range/Units 07:28 11:15 11:15 WBC (4.23-9.07) K/mm3 RBC (4.63-6.08) M/mm3 Hgb (13.7-17.5) gm/dl Hct (40.1-51.0) % MCV (79.0-92.2) fl MCH (25.7-32.2) pg MCHC (32.2-35.5) g/dl RDW Std Deviation (35.1-43.9) fL Plt Count (163-337) K/mm3 MPV (9.4-12.3) fl Neut % (Auto) (34.0-67.9) % Lymph % (Auto) (21.8-53.1) % [place] % (Auto) (5.3-12.2) % Eos % (Auto) (0.8-7.0) Baso % (Auto) (0.1-1.2) % Neut # (Auto) (1.78-5.38) K/mm3 Lymph # (Auto) (1.32-3.57) K/mm3 [place] # (Auto) (0.30-0.82) K/mm3 Eos # (Auto) (0.04-0.54) K/mm3 Baso # (Auto) (0.01-0.08) K/mm3 Manual Slide Review PT (9.7-12.0) SECONDS INR Sodium (136-145) mEq/L Potassium (3.5-5.1) mEq/L Chloride (98-107) mEq/L Carbon Dioxide (21-32) mEq/L Anion Gap (5-15) BUN (7-18) mg/dL Creatinine (0.7-1.3) mg/dL Est Cr Clr Drug Dosing mL/min Estimated GFR (MDRD) (>60) mL/min BUN/Creatinine Ratio (14-18) Glucose (74-106) mg/dL Lactic Acid 1.0 (0.4-2.0) mmol/L Calcium (8.5-10.1) mg/dL Total Bilirubin (0.2-1.0) mg/dL AST (15-37) U/L ALT (16-63) U/L Alkaline Phosphatase (46-116) U/L Troponin I 0.017 (0.00-0.056) ng/mL NT-Pro-B Natriuret Pep 2030 H (0-125) pg/mL Total Protein (6.4-8.2) g/dl Albumin (3.4-5.0) g/dl Globulin gm/dL Albumin/Globulin Ratio (1-2) Result Diagrams: 07/25/19 07:26 07/25/19 07:26 Sepsis Event Note - Evaluation Sepsis Screening Result: Possible Sepsis Risk - Focused Exam Vital Signs: Vital Signs Temp Temp Pulse Pulse Resp BP BP 07/25/19 12:03 98.1 F 94 18 132/88 07/25/19 09:23 122 H 116/89 07/25/19 07:35 96.5 F 140 H 22 H 125/82 Pulse Ox 07/25/19 12:03 95 07/25/19 09:23 07/25/19 07:35 83 L Date Exam was Performed: 07/25/19 Time Exam was Performed: 15:10 Problem List Initiated/Reviewed/Updated: Yes Orders Last 24hrs: Active Orders 24 hr Category Date Time Status Patient Status [ADT] Routine ADT 07/25/19 11:36 Active CIWAA Assessment [RC] Q4H Care 07/25/19 14:30 Ordered Oxygen Therapy [RC] PRN Care 07/25/19 14:26 Ordered Up ad Sharon [RC] ASDIRECTED Care 07/25/19 14:26 Ordered VTE/DVT Education [RC] PER UNIT ROUTINE Care 07/25/19 14:26 Ordered Vital Signs [RC] Q4H Care 07/25/19 14:26 Ordered Respiratory Care Assess and Treatment [CONS] Routine Cons 07/25/19 14:26 Ordered Regular Diet [DIET] Diet 07/25/19 Dinner Active C-REACTIVE PROTEIN [CHEM] AM Lab 07/26/19 05:11 Ordered CBC WITH AUTO DIFF [HEME] AM Lab 07/26/19 05:11 Ordered COMPREHENSIVE METABOLIC PN,CMP [CHEM] AM Lab 07/26/19 05:11 Ordered CULTURE BLOOD [BC] Stat Lab 07/25/19 11:15 Received CULTURE BLOOD [BC] Stat Lab 07/25/19 11:30 Received CULTURE MRSA [RM] Routine Lab 07/25/19 12:15 Received MAGNESIUM [CHEM] AM Lab 07/26/19 05:11 Ordered METH-RESIST S.AUR,MRSA BY PCR [MOLEC] Routine Lab 07/25/19 12:09 Received Azithromycin [Zithromax] 500 mg Med 07/25/19 14:29 Ordered Sodium Chloride 0.9% [Normal Saline] 250 ml IV ONETIME Diltiazem [Dilacor XR] Med 07/26/19 09:00 Ordered 240 mg PO DAILY Folic Acid Med 07/26/19 09:00 Ordered 1 mg PO DAILY LORazepam [Ativan] Med 07/25/19 13:57 Active 1 mg PO Q4H PRN LORazepam [Ativan] Med 07/25/19 14:31 Ordered See Protocol PO Q1H PRN Magnesium Oxide [Magnesium Oxide] Med 07/26/19 09:00 Ordered 840 mg PO DAILY Metoprolol Tartrate [Lopressor] Med 07/25/19 21:00 Ordered 50 mg PO BID Omeprazole Med 07/26/19 09:00 Ordered 20 mg PO DAILY Rivaroxaban [Xarelto] Med 07/25/19 14:30 Ordered 20 mg PO DAILY Sodium Chloride 0.9% [Normal Saline] 1,000 ml Med 07/25/19 07:45 Active IV ASDIRECTED Sodium Chloride 0.9% [Saline Flush] Med 07/25/19 07:34 Active 10 ml FLUSH ASDIRECTED PRN Thiamine [Vitamin B-1] Med 07/26/19 09:00 Ordered 100 mg PO DAILY atorvaSTATin Med 07/25/19 21:00 Ordered 10 mg PO BEDTIME Blood Culture x2 Reflex Set [OM.PC] Stat Oth 07/25/19 10:15 Ordered Peripheral IV Insertion Adult [OM.PC] Stat Oth 07/25/19 07:35 Ordered Resuscitation Status Routine Resus Stat 07/25/19 14:26 Ordered Medication Orders Diltiazem HCl (Dilacor Xr) 240 mg PO DAILY [facility] Folic Acid (Folic Acid) 1 mg PO DAILY DIAMANTE Sodium Chloride (Normal Saline) 1,000 mls @ 999 mls/hr IV ASDIRECTED DIAMANTE Last Admin: 07/25/19 07:48 Dose: 999 mls/hr Azithromycin 500 mg/ Sodium (Chloride) 250 mls @ 250 mls/hr IV ONETIME ONE Stop: 07/25/19 15:28 Lorazepam (Ativan) 1 mg PO Q4H PRN PRN Reason: Anxiety Lorazepam (Ativan) 0 mg PO Q1H PRN; Protocol PRN Reason: Withdrawal Symptoms Metoprolol Tartrate (Lopressor) 50 mg PO BID [facility] Non-Formulary Medication (Atorvastatin) 10 mg PO BEDTIME [facility] Non-Formulary Medication (Magnesium Oxide [Magnesium Oxide]) 840 mg PO DAILY [facility] Non-Formulary Medication (Omeprazole) 20 mg PO DAILY [facility] Non-Formulary Medication (Rivaroxaban [Xarelto]) 20 mg PO DAILY [facility] Sodium Chloride (Saline Flush) 10 ml FLUSH ASDIRECTED PRN PRN Reason: Keep Vein Open Last Admin: 07/25/19 07:48 Dose: 10 ml Thiamine HCl (Vitamin B-1) 100 mg PO DAILY [facility] Assessment/Plan Comment:: Assessment * Hypoxemia secondary to left lower lobe pneumonia -community-acquired versus aspiration * Patient did have LMA and procedure done just 2 days ago, but it is unlikely that was the cause of this pneumonia. * Patient drank 20 shots of kimo and noted coughing. He did not specifically remember aspirating or choking. * WBC 12.83 81% neutrophils/10.46 absolute neutrophils, normal anion gap and lactic acid * Chest x-ray impression: Findings suspicious for left lower lobe pneumonia. * Chronic alcohol abuse * Normally drinks 16 alcohol equivalents daily * Stop drinking for 14 days prior to 2 days ago. Drank 20 shots of kimo yesterday * Has been hospitalized in the past for alcohol detox * Left ORIF of a left intra-articular distal radial fracture * Postop day 2 * Chronic A. fib and RVR on presentation to the emergency room now rate controlled * On metoprolol 75 mg twice daily and Cardizem CD 240 mg daily for rate control * On Xarelto 20 mg daily for stroke prophylaxis * proBNP 2030 likely secondary to cardiac strain. Normal troponin. Plan * Admit to [facility] on telemetry * Continue Rocephin 1 g daily * Azithromycin 500 mg x 1 then 250 mg daily * CIWAA protocol * Ativan 1 mg every 4 hours as needed anxiety * Hold IV fluids secondary to elevated BNP. * Monitor fluid status and blood pressure closely. * CBC, CMP, C-reactive protein, magnesium daily. * MRSA screen. If positive will start vancomycin. * FiO2 to keep oxygen greater than 92%. * Albuterol nebulizers every 2 hours as needed shortness of breath. * Respiratory panel, pneumococcal antigen, Legionella antigen, blood cultures, sputum cultures. * Incentive spirometry and flutter valve. * VTE prophylaxis with Xarelto * CODE STATUS: Full code * Length of stay 1 to 2 days. - Mortality Measure Prognosis:: Good
[2019-07-25] MEDS ORDERED: Albuterol 0.083% 2.5 MG/3 ML Neb Soln NEB PRN (14:45)
[2019-07-25] MEDS ORDERED: Azithromycin 500 MG in Sodium Chloride 0.9% 250 ML IV ONE (15:00)
[2019-07-25] MEDS: Rivaroxaban 10 MG Tab PO SCH (15:38)
[2019-07-25] MEDS ORDERED: Ketorolac 30 MG/ML SDV IM PRN (19:49)
[2019-07-25] MEDS ORDERED: Temazepam 15 MG Cap PO PRN (19:49)
[2019-07-25] MEDS ORDERED: Docusate Sodium 100 MG Cap PO PRN (19:51)
[2019-07-25] MEDS: Metoprolol Tartrate 50 MG Tab PO SCH (20:30)
[2019-07-25] MEDS ORDERED: Nortriptyline 10 MG Cap PO SCH (21:00)
[2019-07-25] MEDS ORDERED: Simvastatin 10 MG Tab PO SCH (21:00)
[2019-07-26] MEDS ORDERED: Pantoprazole 40 MG Tab.CR PO SCH (07:00)
[2019-07-26] MEDS: Rivaroxaban 10 MG Tab PO SCH (08:20)
[2019-07-26] MEDS: Metoprolol Tartrate 50 MG Tab PO SCH (08:21)
[2019-07-26 08:23] VITALS: BP 143/91; PULSE 108
[2019-07-26] MEDS ORDERED: Diltiazem 240 MG Cap.ER PO SCH (09:00)
[2019-07-26] MEDS ORDERED: Venlafaxine 75 MG Cap.ER PO SCH (09:00)
[2019-07-26] MEDS ORDERED: Thiamine 100 MG Tab PO SCH (09:00)
[2019-07-26] MEDS ORDERED: Magnesium Oxide 400 MG Tab PO SCH (09:00)
[2019-07-26] MEDS ORDERED: Folic Acid 1 MG Tab PO SCH (09:00)
--- NOTE | 2019-07-26 11:31 | PCM.DCSUM1 ---
Discharge Summary - Hospital Course HPI Initial Comments: 58-year-old male that fractured his left arm 19 days ago had ORIF of left intra- articular distal radial fracture 2 days ago. Patient states that he is a heavy alcohol user generally drinking 12 shots of kimo and 1 High [employer] beer which is 24 ounces of 8.1% alcohol. He stopped drinking 14 days prior to surgery and yesterday drank 20 shots of kimo. He states that he did not pass out but did notice he started coughing last night. He states it was a hard nonproductive cough and he developed a sore throat and frontal headache. He woke up this morning concerned about his left arm getting infected because he saw a red line traveling up his arm. He did note that his heart seemed to be racing. He denied any fever, chills, or night sweats. He denies any productive sputum. He did not take his any of his medication this morning. He has been off his Xarelto since Monday, 3 days ago. He has been greater than 48 hours since surgery off of his Xarelto. Surgery was done as an outpatient with [facility]. In the emergency room he was found to be in A. fib with RVR. EKG was done at 717 with a ventricular rate of 131 bpm. He had some depression in V3 and prolonged QT due to rate otherwise normal. Patient was given Cardizem 10 mg IV push, 1 L saline, potassium chloride 40 mEq p.o. for potassium of 3.3, his home Cardizem CD of 240 mg and metoprolol tartrate 75 mg. Chest x-ray was also performed which showed a left lower lobe pneumonia, therefore he was given ceftriaxone 1 g. Blood cultures were drawn. Heart rate did come down to 100-1 10 and he was transferred to the floor for admission. Patient was found to be hypoxic on admission at 83 and was put on 2 L nasal cannula. Emergency room labs: White count 12.8, hemoglobin 12.7, platelets 190, INR 1.26 , sodium 133, potassium 3.1, chloride 98, anion gap 14.3, BUN 13, creatinine 1.1 , glucose 127, total bilirubin 1.1, AST 51, ALT 57, alkaline phosphatase 85, lactic acid 1.0, troponin negative at 0.017, proBNP 2030. Diagnosis: Stroke: No - Discharge Data Discharge Date: 07/26/19 Discharge Disposition: Home, Self-Care 01 Condition: Good - Referral to Home Health Primary Care Physician: Gneeva Gutiérrez MD - Patient Summary/Data Consults: Consultations 07/25/19 14:26 Respiratory Care Assess and Treatment [CONS] Routine Hospital Course: Patient was admitted for pulmonary toilet. He was started on bronchodilation, I -S, flutter valve, and IV antibiotics. Patient had a correction of his white count overnight. Patient was very anxious to get home because he states someone of his front door unlocked. We did get him off of oxygen overnight and after his late morning antibiotics he was sent home. Patient will be sent home on Omnicef 300 mg twice daily for total of 7 days of antibiotics and Zithromax 250 mg daily for total of 3 more days. - Patient Instructions Diet: Heart Healthy Diet, Diabetic Diet Activity: As Tolerated Driving: May Drive Today Showering/Bathing: May Shower Other/Special Instructions: Follow up with PCP next week. Finish antibiotics. - Discharge Plan *PRESCRIPTION DRUG MONITORING PROGRAM REVIEWED*: No *COPY OF PRESCRIPTION DRUG MONITORING REPORT IN PATIENT MCKENZIE: No Prescriptions/Med Rec: Azithromycin 250 mg PO DAILY #3 tablet Cefdinir [Omnicef] 300 mg PO BID #10 cap Home Medications: Home Meds Omeprazole 20 mg PO DAILY 07/07/16 [History] Folic Acid 1 mg PO DAILY 09/26/17 [History] Metoprolol Tartrate 50 mg PO BID 09/26/17 [History] Thiamine [Vitamin B-1] 200 mg PO DAILY 09/26/17 [History] Cholecalciferol (Vitamin D3) [Vitamin D] 5,000 unit PO DAILY 01/09/19 [History] Diltiazem [Dilacor XR] 240 mg PO DAILY 01/09/19 [History] Magnesium Oxide 420 mg PO BID 01/09/19 [History] Multivitamin [Multivitamins] 1 each PO DAILY 01/09/19 [History] Rivaroxaban [Xarelto] 20 mg PO DAILY 01/09/19 [History] atorvaSTATin [Lipitor] 10 mg PO BEDTIME 01/09/19 [History] Nortriptyline HCl [Pamelor] 1 cap PO BEDTIME 07/25/19 [History] Venlafaxine HCl [Venlafaxine ER] 75 mg PO DAILY 07/25/19 [History] metFORMIN HCl [Metformin HCl] 500 mg PO DAILY 07/25/19 [History] Azithromycin 250 mg PO DAILY #3 tablet 07/26/19 [Rx] Cefdinir [Omnicef] 300 mg PO BID #10 cap 07/26/19 [Rx] Patient Handouts: Alcohol Use Disorder, Sepsis, Adult, Community-Acquired Pneumonia, Adult, [id number] Forms: ED Department Discharge Referrals: Geneva Gutiérrez MD [Primary Care Provider] - 08/06/19 2:30 pm (please attend the scheduled follow up appointment with your primary care provider.) - Discharge Summary/Plan Comment DC Time >30 min.: Yes Discharge Summary/Plan Comment: Discharged home on Omnicef and Zithromax. Follow-up with primary care doctor next week. Do not drink. Discussed with him that he needs to completely abstain from alcohol while on this medication. Patient voiced understanding. - General Info Date of Service: 07/26/19 Admission Dx/Problem (Free Text: Admission Diagnosis/Problem Admission Diagnosis/Problem Pneumonia Subjective Update: She is doing well. He requests to leave as soon as possible because on left his front door unlocked. He is no longer on O2. Functional Status: Reports: Pain Controlled - Review of Systems General: Reports: No Symptoms HEENT: Reports: No Symptoms Pulmonary: Reports: No Symptoms Cardiovascular: Reports: No Symptoms Gastrointestinal: Reports: No Symptoms - Patient Data Vitals - Most Recent: Last Vital Signs Temp 98.3 F 07/26/19 04:00 Pulse 108 H 07/26/19 08:21 Resp 18 07/26/19 04:00 BP 143/91 H 07/26/19 08:21 Pulse Ox 96 07/26/19 08:00 Weight - Most Recent: 270 lb 4.8 oz I&O - Last 24 hours: Intake & Output 07/25/19 07/26/19 07/26/19 22:59 06:59 14:59 Intake Total 1820 400 240 Output Total 300 800 Balance 1520 -400 240 Lab Results - Last 24 hrs: Laboratory Results - last 24 hr 07/25/19 07/25/19 07/25/19 Range/Units 11:15 11:15 12:09 WBC (4.23-9.07) K/mm3 RBC (4.63-6.08) M/mm3 Hgb (13.7-17.5) gm/dl Hct (40.1-51.0) % MCV (79.0-92.2) fl MCH (25.7-32.2) pg MCHC (32.2-35.5) g/dl RDW Std Deviation (35.1-43.9) fL Plt Count (163-337) K/mm3 MPV (9.4-12.3) fl Neut % (Auto) (34.0-67.9) % Lymph % (Auto) (21.8-53.1) % [place] % (Auto) (5.3-12.2) % Eos % (Auto) (0.8-7.0) Baso % (Auto) (0.1-1.2) % Neut # (Auto) (1.78-5.38) K/mm3 Lymph # (Auto) (1.32-3.57) K/mm3 [place] # (Auto) (0.30-0.82) K/mm3 Eos # (Auto) (0.04-0.54) K/mm3 Baso # (Auto) (0.01-0.08) K/mm3 Sodium (136-145) mEq/L Potassium (3.5-5.1) mEq/L Chloride (98-107) mEq/L Carbon Dioxide (21-32) mEq/L Anion Gap (5-15) BUN (7-18) mg/dL Creatinine (0.7-1.3) mg/dL Est Cr Clr Drug Dosing mL/min Estimated GFR (MDRD) (>60) mL/min BUN/Creatinine Ratio (14-18) Glucose (74-106) mg/dL Lactic Acid 1.0 (0.4-2.0) mmol/L Calcium (8.5-10.1) mg/dL Magnesium (1.8-2.4) mg/dl Total Bilirubin (0.2-1.0) mg/dL AST (15-37) U/L ALT (16-63) U/L Alkaline Phosphatase (46-116) U/L C-Reactive Protein (<1.0) mg/dL NT-Pro-B Natriuret Pep 2030 H (0-125) pg/mL Total Protein (6.4-8.2) g/dl Albumin (3.4-5.0) g/dl Globulin gm/dL Albumin/Globulin Ratio (1-2) TSH 3rd Generation (0.358-3.74) uIU/mL MRSA (PCR) Negative 07/26/19 07/26/19 Range/Units 05:16 05:16 WBC 8.13 (4.23-9.07) K/mm3 RBC 4.16 L (4.63-6.08) M/mm3 Hgb 12.4 L (13.7-17.5) gm/dl Hct 36.9 L (40.1-51.0) % MCV 88.7 (79.0-92.2) fl MCH 29.8 (25.7-32.2) pg MCHC 33.6 (32.2-35.5) g/dl RDW Std Deviation 44.7 H (35.1-43.9) fL Plt Count 157 L (163-337) K/mm3 MPV 9.5 (9.4-12.3) fl Neut % (Auto) 69.9 H (34.0-67.9) % Lymph % (Auto) 17.6 L (21.8-53.1) % [place] % (Auto) 8.9 (5.3-12.2) % Eos % (Auto) 3.2 (0.8-7.0) Baso % (Auto) 0.2 (0.1-1.2) % Neut # (Auto) 5.68 H (1.78-5.38) K/mm3 Lymph # (Auto) 1.43 (1.32-3.57) K/mm3 [place] # (Auto) 0.72 (0.30-0.82) K/mm3 Eos # (Auto) 0.26 (0.04-0.54) K/mm3 Baso # (Auto) 0.02 (0.01-0.08) K/mm3 Sodium 138 (136-145) mEq/L Potassium 3.7 (3.5-5.1) mEq/L Chloride 104 (98-107) mEq/L Carbon Dioxide 26 (21-32) mEq/L Anion Gap 11.7 (5-15) BUN 16 (7-18) mg/dL Creatinine 0.9 (0.7-1.3) mg/dL Est Cr Clr Drug Dosing 85.50 mL/min Estimated GFR (MDRD) > 60 (>60) mL/min BUN/Creatinine Ratio 17.8 (14-18) Glucose 102 (74-106) mg/dL Lactic Acid (0.4-2.0) mmol/L Calcium 8.7 (8.5-10.1) mg/dL Magnesium 1.8 (1.8-2.4) mg/dl Total Bilirubin 0.7 (0.2-1.0) mg/dL AST 38 H (15-37) U/L ALT 48 (16-63) U/L Alkaline Phosphatase 73 (46-116) U/L C-Reactive Protein 17.4 H* (<1.0) mg/dL NT-Pro-B Natriuret Pep (0-125) pg/mL Total Protein 6.2 L (6.4-8.2) g/dl Albumin 2.8 L (3.4-5.0) g/dl Globulin 3.4 gm/dL Albumin/Globulin Ratio 0.8 L (1-2) TSH 3rd Generation 1.152 (0.358-3.74) uIU/mL MRSA (PCR) [facility] Results - Last 24 hrs: Microbiology 07/25/19 11:15 Anaerobic Blood Culture - Final Blood - Venous 07/25/19 11:30 Anaerobic Blood Culture - Final Blood - Venous - Lab Draw 07/25/19 15:30 Influenza Type A Antigen Screen - Final Nasal, Unspecified NEGATIVE INFLUENZA A VIRUS AG REFERENCE RANGE: NEGATIVE Influenza Type B Antigen Screen - Final NEGATIVE INFLUENZA B VIRUS AG REFERENCE RANGE: NEGATIVE Med Orders - Current: Current Medications Albuterol (Proventil Neb Soln) 2.5 mg NEB Q2H PRN PRN Reason: Shortness of Breath Last Admin: 07/25/19 21:26 Dose: 2.5 mg Azithromycin (Zithromax) 250 mg PO ONETIME ONE Stop: 07/26/19 15:01 Diltiazem HCl (Dilacor Xr) 240 mg PO DAILY [facility] Last Admin: 07/26/19 08:21 Dose: 240 mg Docusate Sodium (Colace) 100 mg PO BID PRN PRN Reason: Constipation Folic Acid (Folic Acid) 1 mg PO DAILY DI[facility]ANTE Last Admin: 07/26/19 08:21 Dose: 1 mg Ceftriaxone Sodium 1 gm/ (Sodium Chloride) 100 mls @ 200 mls/hr IV Q24H [facility] Last Admin: 07/26/19 10:59 Dose: 200 mls/hr Ketorolac Tromethamine (Toradol) 30 mg IM Q6HR PRN PRN Reason: Pain Last Admin: 07/25/19 20:31 Dose: 30 mg Lorazepam (Ativan) 1 mg PO Q4H PRN PRN Reason: Anxiety Last Admin: 07/25/19 14:37 Dose: 1 mg Lorazepam (Ativan) 1 - 2 mg PO Q1H PRN; Protocol PRN Reason: Withdrawal Symptoms Magnesium Oxide (Magnesium Oxide) 800 mg PO DAILY [facility] Last Admin: 07/26/19 08:20 Dose: 800 mg Metoprolol Tartrate (Lopressor) 50 mg PO BID [facility] Last Admin: 07/26/19 08:21 Dose: 50 mg Nortriptyline HCl (Nortriptyline) 10 mg PO BEDTIME [facility] Last Admin: 07/25/19 22:00 Dose: 10 mg Pantoprazole Sodium (Protonix) 40 mg PO DAILY@0700 [facility] Last Admin: 07/26/19 06:03 Dose: 40 mg Rivaroxaban (Xarelto) 20 mg PO DAILY [facility] Last Admin: 07/26/19 08:20 Dose: 20 mg Simvastatin (Zocor) 10 mg PO BEDTIME [facility] Last Admin: 07/25/19 20:30 Dose: 10 mg Sodium Chloride (Saline Flush) 10 ml FLUSH ASDIRECTED PRN PRN Reason: Keep Vein Open Last Admin: 07/25/19 07:48 Dose: 10 ml Temazepam (Restoril) 15 mg PO BEDTIME PRN PRN Reason: Sleep Last Admin: 07/25/19 20:29 Dose: 15 mg Thiamine HCl (Vitamin B-1) 100 mg PO DAILY [facility] Last Admin: 07/26/19 08:21 Dose: 100 mg Venlafaxine HCl (Effexor Xr) 75 mg PO DAILY [facility] Last Admin: 07/26/19 08:21 Dose: 75 mg Discontinued Medications Diltiazem HCl (Cardizem) 10 mg IVPUSH ONETIME ONE Stop: 07/25/19 07:38 Last Admin: 07/25/19 07:48 Dose: 10 mg Diltiazem HCl (Dilacor Xr) 240 mg PO ONETIME ONE Stop: 07/25/19 08:13 Last Admin: 07/25/19 08:22 Dose: 240 mg Sodium Chloride (Normal Saline) 1,000 mls @ 999 mls/hr IV ASDIRECTED [facility] Last Admin: 07/25/19 07:48 Dose: 999 mls/hr Levofloxacin/Dextrose 750 mg/ (Premix) 150 mls @ 100 mls/hr IV ONETIME ONE Stop: 07/25/19 12:26 Last Admin: 07/25/19 11:47 Dose: Not Given Ceftriaxone Sodium 1 gm/ (Sodium Chloride) 100 mls @ 200 mls/hr IV ONETIME ONE Stop: 07/25/19 11:39 Last Admin: 07/25/19 11:55 Dose: 200 mls/hr Azithromycin 500 mg/ Sodium (Chloride) 250 mls @ 250 mls/hr IV ONETIME ONE Stop: 07/25/19 15:59 Last Admin: 07/25/19 15:36 Dose: 250 mls/hr Azithromycin 250 mg/ Sodium (Chloride) 250 mls @ 250 mls/hr IV Q24H [facility] Metoprolol Tartrate (Lopressor) 75 mg PO ONETIME ONE Stop: 07/25/19 08:54 Last Admin: 07/25/19 09:23 Dose: 75 mg Oxycodone/Acetaminophen (Percocet 325-5 Mg) 1 tab PO ONETIME ONE Stop: 07/25/19 11:50 Last Admin: 07/25/19 11:54 Dose: 1 tab Potassium Chloride (Klor-Con M20) 40 meq PO ONETIME ONE Stop: 07/25/19 08:54 Last Admin: 07/25/19 09:23 Dose: 40 meq - Exam General: Reports: Alert, Oriented HEENT: Reports: Pupils Equal, EOMI, Mucous Membr. Moist/[place] Neck: Reports: Supple Lungs: Reports: Clear to Auscultation, Normal Respiratory Effort Cardiovascular: Reports: Regular Rate, Regular Rhythm GI/Abdominal Exam: Normal Bowel Sounds, Soft, Non-Tender, No Distention Extremities: Normal Inspection, Normal Range of Motion, Non-Tender, No Pedal Edema Skin: Reports: Warm, Dry, Intact Psy/Mental Status: Reports: Alert, Normal Affect, Normal Mood
[2019-07-26] MEDS ORDERED: cefTRIAXone 1 GM in Sodium Chloride 0.9% 100 ML IV SCH (12:00)
[2019-07-26] MEDS ORDERED: Azithromycin 250 MG Tab PO ONE ×2 (12:45→15:00)
[2019-07-26] MEDS ORDERED: Azithromycin 250 MG in Sodium Chloride 0.9% 250 ML IV SCH (15:00)
== END 2019-07-26 12:45 | disposition home or self-care (01) | DRG 194 ==
LOC: JD.ED 06:52 → JD.MS 11:43
PROVIDERS: ADMIT Family Medicine; ATTEND Family Medicine
DX: I48.91 Unspecified atrial fibrillation (principal); J18.9 Pneumonia, unspecified organism; R60.9 Edema, unspecified; Z98.890 Other specified postprocedural states; J18.1 Lobar pneumonia, unspecified organism; S52.572A Other intraarticular fracture of lower end of left radius, initial encounter for closed fracture; J44.9 Chronic obstructive pulmonary disease, unspecified; I48.20 Chronic atrial fibrillation, unspecified; J44.0 Chronic obstructive pulmonary disease with (acute) lower respiratory infection; B19.20 Unspecified viral hepatitis C without hepatic coma; Z68.41 Body mass index [BMI] 40.0-44.9, adult; Y90.9 Presence of alcohol in blood, level not specified; Z86.14 Personal history of Methicillin resistant Staphylococcus aureus infection; Z79.01 Long term (current) use of anticoagulants; Z79.52 Long term (current) use of systemic steroids; E78.00 Pure hypercholesterolemia, unspecified; K21.9 Gastro-esophageal reflux disease without esophagitis; I10 Essential (primary) hypertension; E66.9 Obesity, unspecified; F10.20 Alcohol dependence, uncomplicated; Z79.899 Other long term (current) drug therapy; Z87.442 Personal history of urinary calculi; X58.XXXA Exposure to other specified factors, initial encounter
CPT/HCPCS: 36415; 71046; 80053; 83605; 83880; 84484; 85025; 85610; 87040 ×2; 93005; A9270 ×3; J3490; J7030; 83735; 84443; 86140; 87070; 87205; 87486; 87581; 87632; 87641; 87798; 87804; 87899; 94640; 94667; 94668; 94761; 96361; 96374; 99284-25; J0456; J0696; J1885; J7050

== ENCOUNTER 2019-08-01 09:30 | Emergency (ER) | payer MEDICAID, OTHER ==
[2019-08-01 09:41] VITALS: BP 148/109
[2019-08-01] MEDS ORDERED: LORazepam 2 MG/ML SDV IVPUSH ONE ×2 (10:05→12:01)
[2019-08-01] MEDS ORDERED: Diltiazem 50 MG/10 ML SDV IVPUSH ONE (10:06)
[2019-08-01] MEDS ORDERED: Sodium Chloride 0.9% 500 ML IV SCH (10:15)
--- NOTE | 2019-08-01 10:16 | EDM.PDOCBH ---
ED HPI GENERAL MEDICAL PROBLEM - General Chief Complaint: Drug or Alcohol Abuse Stated Complaint: SOB SWELLING IN LEGS Time Seen by Provider: 08/01/19 09:42 Source of Information: Reports: Patient History Limitations: Reports: No Limitations - History of Present Illness INITIAL COMMENTS - FREE TEXT/NARRATIVE: Patient is a 58-year-old male who presents to the ER today with complaints of acute alcohol withdrawal. He states his last "drunk" was Monday. At this time he drank 30 shots of kimo as well as a number of "high octane beers". He states that he was sober on Monday and then yesterday he had "one half a shot ". He states that he has done a lot of "soul searching "and that he wants to be sober. He has gone through treatment with [facility], however he states that he won't go back there and that he doesn't think he is welcome back there even if he did want to go. He does complain of lower extremity edema and shortness of breath which he states he gets every time he goes on a munoz. She does have a history of COPD as well as A. fib. He states that he did take all of his "heart medications "before he came to the ER which includes his Cardizem, metoprolol, and Xarelto. Patient had an ORIF of his left radius on July 23. He removed the splint at some point over the last couple days, however he cannot remember when he did it. Left Hand Pain Score (Numeric/FACES): 10 - Related Data Allergies Allergy/AdvReac Type Severity Reaction Status Date / Time No Known Allergies Allergy Verified 08/01/19 09:55 Home Meds: Home Meds Omeprazole 20 mg PO DAILY 07/07/16 [History] Folic Acid 1 mg PO DAILY 09/26/17 [History] Metoprolol Tartrate 75 mg PO BID 09/26/17 [History] Thiamine [Vitamin B-1] 200 mg PO DAILY 09/26/17 [History] Cholecalciferol (Vitamin D3) [Vitamin D] 5,000 unit PO DAILY 01/09/19 [History] Diltiazem [Dilacor XR] 240 mg PO DAILY 01/09/19 [History] Magnesium Oxide 420 mg PO BID 01/09/19 [History] Multivitamin [Multivitamins] 1 each PO DAILY 01/09/19 [History] Rivaroxaban [Xarelto] 20 mg PO DAILY 01/09/19 [History] atorvaSTATin [Lipitor] 40 mg PO BEDTIME 01/09/19 [History] Nortriptyline HCl [Pamelor] 1 cap PO BEDTIME 07/25/19 [History] Venlafaxine HCl [Venlafaxine ER] 75 mg PO DAILY 07/25/19 [History] metFORMIN HCl [Metformin HCl] 500 mg PO DAILY 07/25/19 [History] LORazepam [Ativan] 1 mg PO ASDIRECTED #18 tab 08/01/19 [Rx] Past Medical History - Past Health History Medical/Surgical History: Denies Medical/Surgical History HEENT History: Reports: Cataract Cardiovascular History: Reports: Afib, High Cholesterol, Hypertension Other Cardiovascular History: hx/o a-fib/RVR Respiratory History: Reports: COPD, Other (See Below) Other Respiratory History: 07/24/16 admitted with pneumonia Gastrointestinal History: Reports: GERD Genitourinary History: Reports: Renal Calculus Musculoskeletal History: Reports: Fracture Other Musculoskeletal History: rigth foot fracture 20 yrs ago; Fx of L wrist 2018 Neurological History: Reports: Other (See Below) Other Neuro History: With withdrawal for alcohol Psychiatric History: Reports: Addiction Other Psychiatric History: alcohol Endocrine/Metabolic History: Reports: Obesity/BMI 30+ Hematologic History: Reports: None Other Immunologic History: pt states that a doctor told him he had hep c once but his last check was ok Oncologic (Cancer) History: Reports: None Dermatologic History: Reports: None - Infectious Disease History Infectious Disease History: Reports: Hepatitis C, MRSA Other Infectious Disease History: Hep C per Demond Ponce hospitalist/[place], 06/2016. - Past Surgical History Head Surgeries/Procedures: Reports: None Musculoskeletal Surgical History: Reports: ORIF, Other (See Below) Social & Family History - Family History Family Medical History: Noncontributory Neurological: Reports: CVA Endocrine/Metabolic: Reports: Diabetes, type II Hematologic: Reports: Other (See Below) Other Hematologic Family History: hepatitias c Immunologic: Reports: None Oncologic: Reports: Leukemia - Tobacco Use Smoking Status *Q: Former Smoker Years of Tobacco use: 40 Used Tobacco, but Quit: Yes Month/Year Tobacco Last Used: 2017 - Caffeine Use Caffeine Use: Reports: Soda, Tea - Alcohol Use Days Per Week of Alcohol Use: 7 Number of Drinks Per Day: 30 Total Drinks Per Week: 210 - Recreational Drug Use Recreational Drug Use: No - Living Situation & Occupation Living situation: Reports: , Alone Occupation: Unemployed ED ROS GENERAL - Review of Systems Review Of Systems: See Below Constitutional: Reports: Diaphoresis HEENT: Reports: No Symptoms Respiratory: Reports: Shortness of Breath. Denies: Cough Cardiovascular: Reports: Edema (bilateral lower extremities). Denies: Chest Pain Endocrine: Reports: No Symptoms GI/Abdominal: Reports: No Symptoms. Denies: Abdominal Pain, Diarrhea, Nausea, Vomiting : Reports: No Symptoms Musculoskeletal: Reports: No Symptoms Skin: Reports: No Symptoms Neurological: Reports: Tremors. Denies: Dizziness, Headache Psychiatric: Reports: Anxiety. Denies: Agitation, Confusion, Hallucinations, Homicidal Ideation, Suicidal Ideation Hematologic/Lymphatic: Reports: No Symptoms Immunologic: Reports: No Symptoms ED EXAM, BEHAVIORAL HEALTH - Physical Exam Exam: See Below Exam Limited By: No Limitations General Appearance: Alert, WD/WN, Anxious Respiratory/Chest: No Respiratory Distress, Lungs Clear, Normal Breath Sounds, No Accessory Muscle Use, Chest Non-Tender Cardiovascular: Normal Peripheral Pulses, Irregularly Irregular, Other (2+ pedal edema bilaterally). No: JVD GI/Abdominal: Normal Bowel Sounds, Soft, Non-Tender, No Distention Extremities: Other (sutured incision to the ventral aspect of his left lower forearm. 3 sutured puncture wounds to the dorsal aspect of the left lower forearm. Sutures intact no drainage or signs of infection. 2+ edema to the left lower arm and hand.) Neurological: Alert, Normal Cognition, No Motor/Sensory Deficits, Oriented x 3 Psychiatric: Alert, Normal Cognition, Oriented, Other (mildly anxious) Skin Exam: Warm, Dry, Intact, Normal color, No rash EKG INTERPRETATION EKG Date: 08/01/19 Time: 10:22 Rhythm: A-Fib Rate (Beats/Min): 122 Ronald: Normal P-Wave: Absent QRS: Normal ST-T: Normal QT: Prolonged EKG Interpretation Comments: Afib with rate 72-145/min Q waves V1&V2 - consider old anteroseptal CT decreased voltage in limb leads Diffuse early repolarization pattern likely related to rate. QT interval mildly prolonged. COURSE, BEHAVIORAL HEALTH COMP - Course Vital Signs: Last Vital Signs Temp 97.6 F 08/01/19 09:40 Pulse 91 08/01/19 12:15 Resp 18 08/01/19 12:15 BP 148/109 H 08/01/19 09:40 Pulse Ox 95 08/01/19 12:15 Orders, Labs, Meds: Active Orders 24 hr Category Date Time Status EKG Documentation Completion [RC] STAT Care 08/01/19 10:10 Active Laboratory Tests 08/01/19 08/01/19 08/01/19 Range/Units 09:45 09:45 09:45 WBC 9.29 H (4.23-9.07) K/mm3 RBC 4.36 L (4.63-6.08) M/mm3 Hgb 12.6 L (13.7-17.5) gm/dl Hct 37.9 L (40.1-51.0) % MCV 86.9 (79.0-92.2) fl MCH 28.9 (25.7-32.2) pg MCHC 33.2 (32.2-35.5) g/dl RDW Std Deviation 43.0 (35.1-43.9) fL Plt Count 222 (163-337) K/mm3 MPV 8.1 L (9.4-12.3) fl Neut % (Auto) 71.7 H (34.0-67.9) % Lymph % (Auto) 14.9 L (21.8-53.1) % [place] % (Auto) 11.7 (5.3-12.2) % Eos % (Auto) 0.1 L (0.8-7.0) Baso % (Auto) 0.3 (0.1-1.2) % Neut # (Auto) 6.66 H (1.78-5.38) K/mm3 Lymph # (Auto) 1.38 (1.32-3.57) K/mm3 [place] # (Auto) 1.09 H (0.30-0.82) K/mm3 Eos # (Auto) 0.01 L (0.04-0.54) K/mm3 Baso # (Auto) 0.03 (0.01-0.08) K/mm3 Sodium 141 (136-145) mEq/L Potassium 3.7 (3.5-5.1) mEq/L Chloride 104 (98-107) mEq/L Carbon Dioxide 21 (21-32) mEq/L Anion Gap 19.7 H (5-15) BUN 5 L (7-18) mg/dL Creatinine 1.1 (0.7-1.3) mg/dL Est Cr Clr Drug Dosing 69.95 mL/min Estimated GFR (MDRD) > 60 (>60) mL/min BUN/Creatinine Ratio 4.5 L (14-18) Glucose 139 H (74-106) mg/dL Calcium 8.3 L (8.5-10.1) mg/dL Total Bilirubin 0.9 (0.2-1.0) mg/dL AST 46 H (15-37) U/L ALT 58 (16-63) U/L Alkaline Phosphatase 96 (46-116) U/L NT-Pro-B Natriuret Pep 774 H (0-125) pg/mL Total Protein 6.7 (6.4-8.2) g/dl Albumin 3.2 L (3.4-5.0) g/dl Globulin 3.5 gm/dL Albumin/Globulin Ratio 0.9 L (1-2) Ethyl Alcohol 0.00 (0.00) gm% Medications Discontinued Medications Generic Name Dose Route Start Last Admin Trade Name Freq PRN Reason Stop Dose Admin Diltiazem HCl 10 mg 08/01/19 10:06 08/01/19 10:48 Cardizem IVPUSH 08/01/19 10:07 10 mg ONETIME ONE Administration Sodium Chloride 500 mls @ 999 mls/hr 08/01/19 10:15 Normal Saline IV ASDIRECTED DIAMANTE Sodium Chloride 1,000 mls @ 999 mls/hr 08/01/19 10:35 08/01/19 10:52 Normal Saline IV 999 mls/hr ASDIRECTED DIAMANTE Administration Lorazepam 1 mg 08/01/19 10:05 08/01/19 10:45 Ativan IVPUSH 08/01/19 10:06 1 mg ONETIME ONE Administration Lorazepam 0.5 mg 08/01/19 12:01 08/01/19 12:06 Ativan IVPUSH 08/01/19 12:02 0.5 mg ONETIME ONE Administration Re-Assessment/Re-Exam: Based on patient history and exam, feel it is likely he is going through acute alcohol withdrawal. CIWAA per nursing staff was 17. He is mildly tachycardic at 100 to 120s A. fib, however he did state that he took his home medications prior to coming to the ER. I will start with Ativan 1 mg IV, Cardizem 10 mg IV push, and a 500 bolus of normal saline. We'll check a blood alcohol level as well as CBC, CMP, and pro-BNP. He is oxygen 97% on room air. I will x-ray his left forearm and consider placing a splint On the extremity since it is only been about 1 week since his surgery. Patient does state that he would like treatment for alcohol, however he is not willing to work with [facility]. I did call the [facility] and spoke with Aylin Anguiano RN. She stated that she will start looking for treatment options for him that would be covered by the [facility]. 08/01/19 1050 Aylin from the [facility] called back. She advised that the patient's options are to go to [facility] for treatment or to [place]; however, that would be a private pay. If he wishes to seek treatment through the [facility] that would be either in [place] or [place], however, it would be one week before they would be able to do an assessment on him to get him approved for that. If he decides to go that route, she did state that he must call himself to request that be done. I will discuss these options with the patient. 08/01/19 1130 Dressing removed from patient's left forearm wound. Incision well approximated no signs of erythema or drainage. Cleansed with sterile water and CHG soap. Incision covered with nonstick Telfa. Short arm splint reapplied to the extremity. Patient tolerated well. Patient is doing much better after the 1 mg of Ativan and Cardizem. Heart rate is 80-90. He is no longer having tremors and is able to carry on a full conversation. I did discuss the options of treatment with him. He does not want to go to [facility] and states that he does not want to be admitted today for treatment. He is thinking about the option of going to [facility] for treatment. He states he has been there in the past and that he likes that facility. We will finish his 1 L of normal saline and the plan will be to discharge him home with Ativan for withdrawal symptoms and to follow-up with [facility] for treatment. Departure - Departure Time of Disposition: 11:50 Disposition: Home, Self-Care 01 Condition: Fair Clinical Impression: Alcohol withdrawal syndrome Qualifiers: Complication of substance-induced condition: uncomplicated Qualified Code(s): F10.230 - Alcohol dependence with withdrawal, uncomplicated Fracture of radius and ulna Qualifiers: Encounter type: initial encounter Fracture type: closed Laterality: left Qualified Code(s): S52.92XA - Unspecified fracture of left forearm, initial encounter for closed fracture - Discharge Information *PRESCRIPTION DRUG MONITORING PROGRAM REVIEWED*: No *COPY OF PRESCRIPTION DRUG MONITORING REPORT IN PATIENT MCKENZIE: No Prescriptions: LORazepam [Ativan] 1 mg PO ASDIRECTED #18 tab Instructions: Alcohol Use Disorder, Alcohol Withdrawal Syndrome Referrals: Geneva Gutiérrez MD [Primary Care Provider] - Forms: ED Department Discharge Additional Instructions: You were seen in the emergency department today for symptoms of alcohol withdrawal. Your blood alcohol level was 0 and you were showing some symptoms of mild withdrawal. Your blood work was otherwise unremarkable. You received a dose of IV Ativan as well as some IV fluids while in the ER which did significantly improve your symptoms. Alcohol treatment options were discussed with you, and you declined admission for treatment at this time. A prescription for Ativan has been sent to an [place] pharmacy in [facility] emergency department. Take this as prescribed for your alcohol withdrawal symptoms. Do not drink alcohol or drive while taking this medication. We [facility]. If you should experience any new or concerning symptoms with regards to alcohol withdrawal, please return to the emergency department as needed. While in the ER, we did also reapply your splint to her left forearm. I recommend that you leave the splint intact until you see your orthopedic surgeon or a follow-up. Sepsis Event Note - Evaluation Sepsis Screening Result: No Definite Risk - Focused Exam Vital Signs: Vital Signs Temp Pulse Resp BP Pulse Ox 08/01/19 12:15 91 18 95 08/01/19 09:40 97.6 F 136 H 28 H 148/109 H 98 Date Exam was Performed: 08/01/19 Time Exam was Performed: 16:42 - My Orders Last 24 Hours: My Active Orders 08/01/19 10:10 EKG Documentation Completion [RC] STAT - Assessment/Plan Last 24 Hours: My Active Orders 08/01/19 10:10 EKG Documentation Completion [RC] STAT
[2019-08-01] MEDS ORDERED: Sodium Chloride 0.9% 1,000 ML IV SCH (10:35)
--- NOTE | 2019-08-01 11:56 | CR ---
Chest: Two views of the chest were obtained. Comparison: Prior chest x-ray of 07/25/19. Heart size is normal. Tortuous thoracic aorta is seen. Lung markings are mildly increased which appear chronic. No acute parenchymal change is seen. Bony structures are grossly intact. Impression: 1. Nothing acute is appreciated on two-view chest x-ray. Diagnostic code #2 This report was dictated in [place] Standard Time
--- NOTE | 2019-08-01 11:56 | CR ---
Left forearm: Two views of the left forearm were obtained. Comparison: Previous left wrist study of 07/05/19. Plate and screws are noted within the distal radius affixing previous fracture. Small avulsion fracture is noted within the ulnar styloid process. This also is stable. Soft tissue swelling is noted within the forearm. No acute abnormality is appreciated. Impression: 1. Wrist fracture as noted above which is stable. 2. Soft tissue swelling is noted. 3. No additional abnormality is seen. Diagnostic code #2 This report was dictated in [place] Standard Time
[2019-08-01 12:33] VITALS: PULSE 91
== END 2019-08-01 12:26 | disposition home or self-care (01) ==
LOC: JD.ED 09:30
DX: F10.230 Alcohol dependence with withdrawal, uncomplicated (principal); S52.502D Unspecified fracture of the lower end of left radius, subsequent encounter for closed fracture with routine healing; S52.612D Displaced fracture of left ulna styloid process, subsequent encounter for closed fracture with routine healing; I10 Essential (primary) hypertension; I48.91 Unspecified atrial fibrillation; K21.9 Gastro-esophageal reflux disease without esophagitis; Z79.899 Other long term (current) drug therapy; E66.9 Obesity, unspecified; Z87.891 Personal history of nicotine dependence; X58.XXXD Exposure to other specified factors, subsequent encounter; Y90.0 Blood alcohol level of less than 20 mg/100 ml
CPT/HCPCS: 29125; 36415; 71046; 73090; 80053; 80320; 83880; 85025; 93005; 96361; 96374; 96375; 96376; 99285; J2060; J3490; J7030; 93010; 99284; G0480

== ENCOUNTER 2019-11-04 12:59 | Emergency (ER) | payer MEDICAID, OTHER ==
[2019-11-04 13:24] VITALS: BP 135/114; PULSE 121
--- NOTE | 2019-11-04 14:07 | EDM.PDOC ---
ED HPI GENERAL MEDICAL PROBLEM - General Chief Complaint: Lower Extremity Injury/Pain Stated Complaint: POSS BLOODCLOT Time Seen by Provider: 11/04/19 13:14 Source of Information: Reports: Patient History Limitations: Reports: No Limitations - History of Present Illness INITIAL COMMENTS - FREE TEXT/NARRATIVE: The patient presents with left leg pain and edema. This started a couple days ago. He has no chest pain or shortness of breath. He has no history of DVT or PE. He is on xarelto for atrial fibrillation. He had no recent hospitalization , surgery or long car or plain ride. Onset: Gradual Duration: Day(s): Location: Reports: Lower Extremity, Left (lower leg) Quality: Reports: Ache Severity: Mild Improves with: Reports: None Worsens with: Reports: None Associated Symptoms: Reports: No Other Symptoms - Related Data Allergies Allergy/AdvReac Type Severity Reaction Status Date / Time No Known Allergies Allergy Verified 11/04/19 13:15 Home Meds: Home Meds Omeprazole 20 mg PO DAILY 07/07/16 [History] Folic Acid 1 mg PO DAILY 09/26/17 [History] Metoprolol Tartrate 75 mg PO BID 09/26/17 [History] Thiamine [Vitamin B-1] 200 mg PO DAILY 09/26/17 [History] Cholecalciferol (Vitamin D3) [Vitamin D] 5,000 unit PO DAILY 01/09/19 [History] Diltiazem [Dilacor XR] 240 mg PO DAILY 01/09/19 [History] Magnesium Oxide 420 mg PO BID 01/09/19 [History] Multivitamin [Multivitamins] 1 each PO DAILY 01/09/19 [History] Rivaroxaban [Xarelto] 20 mg PO DAILY 01/09/19 [History] atorvaSTATin [Lipitor] 40 mg PO BEDTIME 01/09/19 [History] Nortriptyline HCl [Pamelor] 1 cap PO BEDTIME 07/25/19 [History] Venlafaxine HCl [Venlafaxine ER] 75 mg PO DAILY 07/25/19 [History] metFORMIN HCl [Metformin HCl] 500 mg PO DAILY 07/25/19 [History] LORazepam [Ativan] 1 mg PO ASDIRECTED #18 tab 08/01/19 [Rx] Past Medical History - Past Health History Medical/Surgical History: Denies Medical/Surgical History HEENT History: Reports: Cataract Cardiovascular History: Reports: Afib, High Cholesterol, Hypertension Other Cardiovascular History: hx/o a-fib/RVR Respiratory History: Reports: COPD Other Respiratory History: 07/24/16 admitted with pneumonia Gastrointestinal History: Reports: GERD Genitourinary History: Reports: Renal Calculus Musculoskeletal History: Reports: Fracture Other Musculoskeletal History: rigth foot fracture 20 yrs ago; Fx of L wrist 2018 Neurological History: Reports: Other (See Below) Other Neuro History: With withdrawal for alcohol Psychiatric History: Reports: Addiction Other Psychiatric History: alcohol Endocrine/Metabolic History: Reports: Obesity/BMI 30+ Hematologic History: Reports: None Other Immunologic History: pt states that a doctor told him he had hep c once but his last check was ok Oncologic (Cancer) History: Reports: None Dermatologic History: Reports: None - Infectious Disease History Infectious Disease History: Reports: Hepatitis C, MRSA Other Infectious Disease History: Hep C per Demond Ponce hospitalist/[place], 06/2016. - Past Surgical History Head Surgeries/Procedures: Reports: None Musculoskeletal Surgical History: Reports: ORIF, Other (See Below) Social & Family History - Family History Family Medical History: Noncontributory Neurological: Reports: CVA Endocrine/Metabolic: Reports: Diabetes, type II Hematologic: Reports: Other (See Below) Other Hematologic Family History: hepatitias c Immunologic: Reports: None Oncologic: Reports: Leukemia - Tobacco Use Smoking Status *Q: Former Smoker Used Tobacco, but Quit: Yes Month/Year Tobacco Last Used: 2017 - Caffeine Use Caffeine Use: Reports: Soda, Tea - Recreational Drug Use Recreational Drug Use: No - Living Situation & Occupation Living situation: Reports: , Alone Occupation: Unemployed Review of Systems - Review of Systems Review Of Systems: See Below Constitutional: Reports: No Symptoms Eyes: Reports: No Symptoms Ears: Reports: No Symptoms Nose: Reports: No Symptoms Mouth/Throat: Reports: No Symptoms Respiratory: Reports: No Symptoms Cardiovascular: Reports: No Symptoms GI/Abdominal: Reports: No Symptoms Genitourinary: Reports: No Symptoms Musculoskeletal: Reports: Other (Left leg edema and pain) ED EXAM, GENERAL - Physical Exam Exam: See Below Exam Limited By: No Limitations General Appearance: Alert, No Apparent Distress Ears: Normal External Exam Nose: Normal Inspection Head: Atraumatic, Normocephalic Neck: Normal Inspection Respiratory/Chest: No Respiratory Distress, Lungs Clear, Normal Breath Sounds Cardiovascular: Regular Rate, Rhythm, No Edema, No Murmur GI/Abdominal: Soft, Non-Tender, No Organomegaly, No Mass Extremities: Other (Moderate edema to the left leg. Good sensaton and pulses distally.) Course - Vital Signs Last Recorded V/S: Last Vital Signs Temp 97.3 F 11/04/19 13:13 Pulse 121 H 11/04/19 13:13 Resp 18 11/04/19 13:13 BP 135/114 H 11/04/19 13:13 Pulse Ox 94 L 11/04/19 13:13 - Re-Assessments/Exams Free Text/Narrative Re-Assessment/Exam: 11/04/19 14:07 I ordered an US of his leg. 11/04/19 16:05 The US shows poorly seen peroneal vein due to subcutaneous edema. No findings of deep venous thrombosis within the left lower extremity or within the right common femoral vein. Departure - Departure Time of Disposition: 16:10 Disposition: Home, Self-Care 01 Condition: Good Clinical Impression: Leg edema, left - Discharge Information *PRESCRIPTION DRUG MONITORING PROGRAM REVIEWED*: Not Applicable *COPY OF PRESCRIPTION DRUG MONITORING REPORT IN PATIENT MCKENZIE: Not Applicable Referrals: Geneva Gutiérrez MD [Primary Care Provider] - 1 Week Forms: ED Department Discharge Additional Instructions: Elevate your leg as much as you can for 2 days. Please return if you are worse. Sepsis Event Note - Evaluation Sepsis Screening Result: No Definite Risk - Focused Exam Vital Signs: Vital Signs Temp Pulse Resp BP Pulse Ox 11/04/19 13:13 97.3 F 121 H 18 135/114 H 94 L Date Exam was Performed: 11/04/19 Time Exam was Performed: 16:05
--- NOTE | 2019-11-04 15:03 | US ---
Left lower extremity deep venous ultrasound: Duplex and color Doppler evaluation was obtained of the left common femoral, proximal greater saphenous, superficial femoral, popliteal, posterior tibial and peroneal veins. Right common femoral vein was also evaluated. Findings: Peroneal veins not well visualized due to subcutaneous edema. Other vein show normal phasic flow, augmentation and compression. Impression: 1. Poorly seen left peroneal vein due to subcutaneous edema. 2. No findings of deep venous thrombosis within the left lower extremity or within the right common femoral vein. Diagnostic code #2 This report was dictated in MDT
== END 2019-11-04 16:24 | disposition left against medical advice (07) ==
LOC: JD.ED 12:59
DX: R60.9 Edema, unspecified (principal); I10 Essential (primary) hypertension; E78.00 Pure hypercholesterolemia, unspecified; E66.9 Obesity, unspecified; Z79.899 Other long term (current) drug therapy
CPT/HCPCS: 93971-26-LT; 93971-LT; 99282; 99284-25

== ENCOUNTER 2019-12-07 07:15 | Emergency (ER) | payer OTHER, MEDICAID ==
[2019-12-07 07:30] VITALS: BP 147/100; PULSE 109
--- NOTE | 2019-12-07 08:11 | EDM.PDOC ---
ED HPI GENERAL MEDICAL PROBLEM - General Chief Complaint: Back Pain or Injury Stated Complaint: SKIN COMPLAINT - BACK Time Seen by Provider: 12/07/19 07:35 Source of Information: Reports: Patient, RN Notes Reviewed - History of Present Illness INITIAL COMMENTS - FREE TEXT/NARRATIVE: 59 yr old male comes in with R mid back pain that started last evening, worse with motion. No known injury, he states his bed has poor springs and mattress so that could be part of the problem. He noticed a skin tag type lesion R upper back so wonders if the pain is from that. Hx of MRSA, worried about infection. No fever or chills. - Related Data Allergies Allergy/AdvReac Type Severity Reaction Status Date / Time No Known Allergies Allergy Verified 12/07/19 07:34 Home Meds: Home Meds Omeprazole 20 mg PO DAILY 07/07/16 [History] Folic Acid 1 mg PO DAILY 09/26/17 [History] Metoprolol Tartrate 75 mg PO BID 09/26/17 [History] Thiamine [Vitamin B-1] 200 mg PO DAILY 09/26/17 [History] Cholecalciferol (Vitamin D3) [Vitamin D] 5,000 unit PO DAILY 01/09/19 [History] Diltiazem [Dilacor XR] 240 mg PO DAILY 01/09/19 [History] Magnesium Oxide 420 mg PO BID 01/09/19 [History] Multivitamin [Multivitamins] 1 each PO DAILY 01/09/19 [History] Rivaroxaban [Xarelto] 20 mg PO DAILY 01/09/19 [History] atorvaSTATin [Lipitor] 40 mg PO BEDTIME 01/09/19 [History] metFORMIN HCl [Metformin HCl] 500 mg PO DAILY 07/25/19 [History] Cyclobenzaprine [Flexeril] 10 mg PO BID PRN #6 tab 12/07/19 [Rx] Past Medical History - Past Health History Medical/Surgical History: Denies Medical/Surgical History HEENT History: Reports: Cataract Cardiovascular History: Reports: Afib, High Cholesterol, Hypertension Other Cardiovascular History: hx/o a-fib/RVR Respiratory History: Reports: COPD Other Respiratory History: 07/24/16 admitted with pneumonia Gastrointestinal History: Reports: GERD Genitourinary History: Reports: Renal Calculus Musculoskeletal History: Reports: Fracture Other Musculoskeletal History: rigth foot fracture 20 yrs ago; Fx of L wrist 2018 Neurological History: Reports: Other (See Below) Other Neuro History: With withdrawal for alcohol Psychiatric History: Reports: Addiction Other Psychiatric History: alcohol Endocrine/Metabolic History: Reports: Obesity/BMI 30+ Hematologic History: Reports: None Other Immunologic History: pt states that a doctor told him he had hep c once but his last check was ok Oncologic (Cancer) History: Reports: None Dermatologic History: Reports: None - Infectious Disease History Infectious Disease History: Reports: MRSA Other Infectious Disease History: Hep C per Dx Jayshree Ponce hospitalist/[place], 06/2016. - Past Surgical History Head Surgeries/Procedures: Reports: None Musculoskeletal Surgical History: Reports: ORIF, Other (See Below) Social & Family History - Family History Family Medical History: Noncontributory Neurological: Reports: CVA Endocrine/Metabolic: Reports: Diabetes, type II Hematologic: Reports: Other (See Below) Other Hematologic Family History: hepatitias c Immunologic: Reports: None Oncologic: Reports: Leukemia - Tobacco Use Smoking Status *Q: Former Smoker Used Tobacco, but Quit: Yes Month/Year Tobacco Last Used: 1 year ago - Caffeine Use Caffeine Use: Reports: Soda, Tea - Alcohol Use Days Per Week of Alcohol Use: 7 Number of Drinks Per Day: 7 Total Drinks Per Week: 49 - Recreational Drug Use Recreational Drug Use: No - Living Situation & Occupation Living situation: Reports: , Alone Occupation: Unemployed ED ROS GENERAL - Review of Systems Review Of Systems: See Below Constitutional: Denies: Fever, Chills, Diaphoresis HEENT: Reports: No Symptoms Respiratory: Reports: No Symptoms, Shortness of Breath Cardiovascular: Reports: No Symptoms GI/Abdominal: Reports: No Symptoms Musculoskeletal: Reports: Back Pain Skin: Reports: Other (Has a skin tag type lesion R upper back) Neurological: Reports: No Symptoms ED EXAM,LOWER BACK PAIN/INJURY - Physical Exam Exam: See Below General Appearance: Alert, No Apparent Distress Head: Atraumatic Neck: Supple Respiratory/Chest: No Respiratory Distress Back Exam: Other (There is mild tenderness R mid back just below the scapula). No: Paraspinal Tenderness, Vertebral Tenderness Neurological: No Motor/Sensory Deficits Skin Exam: Warm, Dry, Other (there is a brown keratotic type skin tag type lesion R upper back, now errythem, swelling or drainage, also no other infected lesions visible) Course - Vital Signs Last Recorded V/S: Last Vital Signs Temp 98.2 F 12/07/19 07:25 Pulse 109 H 12/07/19 07:25 Resp 13 12/07/19 07:25 BP 147/100 H 12/07/19 07:25 Pulse Ox 100 12/07/19 07:25 Departure - Departure Time of Disposition: 08:07 Disposition: Home, Self-Care 01 Preliminary Cause of *Q: Sepsis & Multi System Organ Failure Clinical Impression: Actinic keratosis Back pain Qualifiers: Back pain location: low back pain Chronicity: acute Back pain laterality: right Sciatica presence: without sciatica Qualified Code(s): M54.5 - Low back pain - Discharge Information Prescriptions: Cyclobenzaprine [Flexeril] 10 mg PO BID PRN #6 tab PRN Reason: Pain Instructions: Muscle Pain, Adult Referrals: Geneva Gutiérrez MD [Primary Care Provider] - Forms: ED Department Discharge Additional Instructions: The skin lesion of your right back looks more like an actinic keratosis than anything else at this time. You should have that looked at by your regular medical provider next week for a 2nd opinion. The pain of your low back is muscle related. There is no sign of any infection. You can take flexeril 10 mg twice daily for the next 2 or 3 days as needed for pain or spasm. Prescription [facility] They open at 9 AM today. Avoid heavy lifting. Alternate ice and heat as needed. Sepsis Event Note - Evaluation Sepsis Screening Result: No Definite Risk - Focused Exam Vital Signs: Vital Signs Temp Pulse Resp BP Pulse Ox 12/07/19 07:25 98.2 F 109 H 13 147/100 H 100 Date Exam was Performed: 12/07/19 Time Exam was Performed: 08:34
== END 2019-12-07 08:33 | disposition home or self-care (01) ==
LOC: JD.ED 07:15
DX: L57.0 Actinic keratosis (principal); M54.5 Low back pain; I48.91 Unspecified atrial fibrillation; E78.00 Pure hypercholesterolemia, unspecified; I10 Essential (primary) hypertension; J44.9 Chronic obstructive pulmonary disease, unspecified; K21.9 Gastro-esophageal reflux disease without esophagitis; E66.9 Obesity, unspecified; Z79.899 Other long term (current) drug therapy; Z79.84 Long term (current) use of oral hypoglycemic drugs; Z87.891 Personal history of nicotine dependence; Z68.26 Body mass index [BMI] 26.0-26.9, adult
CPT/HCPCS: 99283

== ENCOUNTER 2020-02-28 09:42 | Emergency (ER) | payer OTHER, MEDICAID ==
[2020-02-28 10:02] VITALS: BP 103/53; PULSE 80
--- NOTE | 2020-02-28 11:22 | EDM.PDOC ---
ED HPI GENERAL MEDICAL PROBLEM - General Chief Complaint: Wound Recheck Stated Complaint: NEEDS BANDAGE CHANGE/R FOOT WOUND CHECK Time Seen by Provider: 02/28/20 11:06 Source of Information: Reports: Patient History Limitations: Reports: No Limitations - History of Present Illness INITIAL COMMENTS - FREE TEXT/NARRATIVE: Patient is a 59-year-old male who presents to the emergency department to have his incisions on his right foot check. He had surgery for hammertoe with Dr. Linares yesterday. States last night he fell asleep with his leg in the dependent position instead of elevated. When he awoke his dressing was saturated with blood and he had some swelling of his lower extremity. The swelling has since resolved. States he called over to [facility] to see Dr. Linares but he is not in until noon. He denies any excessive pain. There is no active bleeding. Right Foot Pain Score (Numeric/FACES): 7 - Related Data Allergies Allergy/AdvReac Type Severity Reaction Status Date / Time No Known Allergies Allergy Verified 02/28/20 10:02 Home Meds: Home Meds Omeprazole 20 mg PO DAILY 07/07/16 [History] Folic Acid 1 mg PO DAILY 09/26/17 [History] Metoprolol Tartrate 75 mg PO BID 09/26/17 [History] Thiamine [Vitamin B-1] 200 mg PO DAILY 09/26/17 [History] Cholecalciferol (Vitamin D3) [Vitamin D] 5,000 unit PO DAILY 01/09/19 [History] Diltiazem [Dilacor XR] 240 mg PO DAILY 01/09/19 [History] Magnesium Oxide 420 mg PO BID 01/09/19 [History] Multivitamin [Multivitamins] 1 each PO DAILY 01/09/19 [History] Rivaroxaban [Xarelto] 20 mg PO DAILY 01/09/19 [History] atorvaSTATin [Lipitor] 40 mg PO BEDTIME 01/09/19 [History] metFORMIN HCl [Metformin HCl] 500 mg PO DAILY 07/25/19 [History] Cyclobenzaprine [Flexeril] 10 mg PO BID PRN #6 tab 12/07/19 [Rx] Past Medical History - Past Health History Medical/Surgical History: Denies Medical/Surgical History HEENT History: Reports: Cataract Cardiovascular History: Reports: Afib, High Cholesterol, Hypertension Other Cardiovascular History: hx/o a-fib/RVR Respiratory History: Reports: COPD Other Respiratory History: 07/24/16 admitted with pneumonia Gastrointestinal History: Reports: GERD Genitourinary History: Reports: Renal Calculus Musculoskeletal History: Reports: Fracture Other Musculoskeletal History: rigth foot fracture 20 yrs ago; Fx of L wrist 2018 Neurological History: Reports: Other (See Below) Other Neuro History: With withdrawal for alcohol Psychiatric History: Reports: Addiction Other Psychiatric History: alcohol Endocrine/Metabolic History: Reports: Obesity/BMI 30+ Hematologic History: Reports: None Other Immunologic History: pt states that a doctor told him he had hep c once but his last check was ok Oncologic (Cancer) History: Reports: None Dermatologic History: Reports: None - Infectious Disease History Infectious Disease History: Reports: MRSA Other Infectious Disease History: Hep C per zander [place]ist/[place], 06/2016. - Past Surgical History Head Surgeries/Procedures: Reports: None Musculoskeletal Surgical History: Reports: ORIF, Other (See Below) Other Musculoskeletal Surgeries/Procedures:: right toe -hammer toe surgery, left wrist surgery Social & Family History - Family History Family Medical History: Noncontributory Neurological: Reports: CVA Endocrine/Metabolic: Reports: Diabetes, type II Hematologic: Reports: Other (See Below) Other Hematologic Family History: hepatitias c Immunologic: Reports: None Oncologic: Reports: Leukemia - Tobacco Use Smoking Status *Q: Never Smoker - Caffeine Use Caffeine Use: Reports: Soda, Tea - Recreational Drug Use Recreational Drug Use: No - Living Situation & Occupation Living situation: Reports: , Alone Occupation: Unemployed ED ROS GENERAL - Review of Systems Review Of Systems: See Below Constitutional: Reports: No Symptoms. Denies: Fever, Chills, Weakness HEENT: Reports: No Symptoms Respiratory: Reports: No Symptoms Cardiovascular: Reports: No Symptoms Endocrine: Reports: No Symptoms GI/Abdominal: Reports: No Symptoms : Reports: No Symptoms Musculoskeletal: Reports: Other (Right foot pain) Skin: Reports: Other (Bleeding from surgical incisions to right foot.) Neurological: Reports: No Symptoms Psychiatric: Reports: No Symptoms Hematologic/Lymphatic: Reports: No Symptoms Immunologic: Reports: No Symptoms ED EXAM, SKIN/RASH Exam: See Below Exam Limited By: No Limitations General Appearance: Alert, WD/WN, No Apparent Distress Extremities: Other (Incision to the lateral base of the great toe, as well as directly proximal to the dorsal aspect of the second toe. Pin protruding from the distal aspect of the second toe. no active bleeding. No erythema or drainage.) Neurological: Alert, Oriented, CN II-XII Intact, Normal Cognition, Normal Gait, Normal Reflexes, No Motor/Sensory Deficits Psychiatric: Normal Affect, Normal Mood Skin: Warm, Dry, No Rash Course - Vital Signs Last Recorded V/S: Last Vital Signs Temp 96.6 F L 02/28/20 09:53 Pulse 80 02/28/20 09:53 Resp 18 02/28/20 09:53 BP 103/53 L 02/28/20 09:53 Pulse Ox 90 L 02/28/20 09:53 - Re-Assessments/Exams Free Text/Narrative Re-Assessment/Exam: Patient is a 59-year-old male who presents to the emergency department with complaints of bleeding from his recent hammertoe surgery incision sites. On presentation, he did have dried, blood saturated gauze and Alfredo wrap. Dried, saturated dressing was removed. Incision sites looked normal. There is no redness, or erythema. The source of the bleeding appears to be from the distal second toe at the insertion site of the pin. There is currently no swelling to his lower extremity. We will clean the foot with sterile saline and CHG soap. Sterile dressing will be applied. I did recommend that the patient contact Dr. Linares to see if he would like to see him prior to his appointment on Monday. Recommend that he follow his postop instructions as provided by Dr. Linares. Discharge instructions document. Departure - Departure Time of Disposition: 11:51 Disposition: Home, Self-Care 01 Condition: Good Clinical Impression: Encounter for post surgical wound check - Discharge Information *PRESCRIPTION DRUG MONITORING PROGRAM REVIEWED*: No *COPY OF PRESCRIPTION DRUG MONITORING REPORT IN PATIENT MCKENZIE: No Instructions: Wound Care, Adult Referrals: Geneva Gutiérrez MD [Primary Care Provider] - Tarun Linares II, DPM [Physician] - Forms: ED Department Discharge Additional Instructions: You were seen in the emergency department today for a wound recheck after your dressing from your surgical sites became saturated in blood. On exam, the source of the bleeding appears to be from the insertion site of the pain on the second toe. The foot and incisions were cleaned with sterile saline and CHG soap. Sterile dressing was applied. I would recommend that you call and speak with Dr. Linares to see if you would like to see you before your appointment on Monday. Follow the postop instructions as provided by Dr. iLnares yesterday. Return to the ER as needed. Sepsis Event Note (ED) - Evaluation Sepsis Screening Result: No Definite Risk - Focused Exam Vital Signs: Vital Signs Temp Pulse Resp BP Pulse Ox 02/28/20 09:53 96.6 F L 80 18 103/53 L 90 L
== END 2020-02-28 12:40 | disposition home or self-care (01) ==
LOC: JD.ED 09:42
DX: M96.830 Postprocedural hemorrhage of a musculoskeletal structure following a musculoskeletal system procedure (principal); I10 Essential (primary) hypertension; I48.91 Unspecified atrial fibrillation; K21.9 Gastro-esophageal reflux disease without esophagitis; E78.00 Pure hypercholesterolemia, unspecified; Z79.01 Long term (current) use of anticoagulants; Z79.84 Long term (current) use of oral hypoglycemic drugs; E66.9 Obesity, unspecified; Z68.39 Body mass index [BMI] 39.0-39.9, adult; J44.9 Chronic obstructive pulmonary disease, unspecified; Z79.899 Other long term (current) drug therapy
CPT/HCPCS: 99282

== ENCOUNTER 2020-03-05 11:37 | Emergency (ER) | payer OTHER, MEDICAID ==
[2020-03-05 12:07] VITALS: BP 95/72; PULSE 94
--- NOTE | 2020-03-05 12:26 | EDM.PDOC ---
ED HPI GENERAL MEDICAL PROBLEM - General Chief Complaint: Lower Extremity Injury/Pain Stated Complaint: NEED DRESSING CHANGE (R FOOT BLEEDING) Time Seen by Provider: 03/05/20 12:12 Source of Information: Reports: Patient, RN Notes Reviewed History Limitations: Reports: No Limitations - History of Present Illness INITIAL COMMENTS - FREE TEXT/NARRATIVE: Patient is a 59-year-old male who presents to the ED for the need to have his surgical dressing changed. The patient states that he had a bunionectomy, and a pin placed to his second toe last week by Dr. Linares. Patient became concerned about the color of his foot, and was worried about infection. He states he is on Augmentin, this was started on Monday. Patient was also concerned about the oozing of his blood coming from the surgical wounds. He states he is prediabetic, and on metformin. Patient denies any further numbness/tingling, or loss of range of motion. He does appreciate mild swelling. He further denies any fever/chills, cough/shortness of breath, nausea/vomiting/diarrhea. The patient states that he tried calling Dr. Linares's office today, and states that he wouldn't have been able to see him until 3:30pm, but decided to come here to have it looked at sooner. Treatments HANGERSMITH: Reports: Other (see below) Other Treatments HANGERSMITH: ANTIBIOTIC AND PAIN PILLS Right Foot Pain Score (Numeric/FACES): 10 - Related Data Allergies Allergy/AdvReac Type Severity Reaction Status Date / Time No Known Allergies Allergy Verified 02/28/20 10:02 Home Meds: Home Meds Omeprazole 20 mg PO DAILY 07/07/16 [History] Folic Acid 1 mg PO DAILY 09/26/17 [History] Metoprolol Tartrate 75 mg PO BID 09/26/17 [History] Thiamine [Vitamin B-1] 200 mg PO DAILY 09/26/17 [History] Cholecalciferol (Vitamin D3) [Vitamin D] 5,000 unit PO DAILY 01/09/19 [History] Diltiazem [Dilacor XR] 240 mg PO DAILY 01/09/19 [History] Magnesium Oxide 420 mg PO BID 01/09/19 [History] Multivitamin [Multivitamins] 1 each PO DAILY 01/09/19 [History] Rivaroxaban [Xarelto] 20 mg PO DAILY 01/09/19 [History] atorvaSTATin [Lipitor] 40 mg PO BEDTIME 01/09/19 [History] metFORMIN HCl [Metformin HCl] 500 mg PO DAILY 07/25/19 [History] Cyclobenzaprine [Flexeril] 10 mg PO BID PRN #6 tab 12/07/19 [Rx] Acetaminophen/oxyCODONE [Percocet 325-5 MG] 1 - 2 tab PO Q4HR 03/05/20 [History] Amoxicillin/Potassium Clav [Amox-Clav 500-125 mg Tablet] 1 tab PO BID 03/05/20 [History] Past Medical History HEENT History: Reports: Cataract Cardiovascular History: Reports: Afib (with RVR), High Cholesterol, Hypertension Respiratory History: Reports: COPD, Other (See Below) Other Respiratory History: 07/24/16 admitted with pneumonia Gastrointestinal History: Reports: GERD Genitourinary History: Reports: Renal Calculus Musculoskeletal History: Reports: Fracture Other Musculoskeletal History: rigth foot fracture 20 yrs ago; Fx of L wrist 2018 Neurological History: Reports: Other (See Below) Other Neuro History: With withdrawal for alcohol Psychiatric History: Reports: Addiction Other Psychiatric History: alcohol Endocrine/Metabolic History: Reports: Obesity/BMI 30+ - Infectious Disease History Infectious Disease History: Reports: Hepatitis C, MRSA Other Infectious Disease History: Hep C per Demond Ponce hospitalist/[place], 06/2016. - Past Surgical History Musculoskeletal Surgical History: Reports: ORIF, Other (See Below) Other Musculoskeletal Surgeries/Procedures:: right toe -hammer toe surgery, left wrist surgery; BUNIONECTOMY Social & Family History - Family History Family Medical History: Noncontributory Neurological: Reports: CVA Endocrine/Metabolic: Reports: Diabetes, type II Hematologic: Reports: Other (See Below) Other Hematologic Family History: hepatitias c Immunologic: Reports: None Oncologic: Reports: Leukemia - Tobacco Use Smoking Status *Q: Never Smoker - Caffeine Use Caffeine Use: Reports: Soda - Recreational Drug Use Recreational Drug Use: No - Living Situation & Occupation Living situation: Reports: , Alone Occupation: Unemployed Review of Systems - Review of Systems Review Of Systems: Comprehensive ROS is negative, except as noted in HPI. ED EXAM, GENERAL - Physical Exam Exam: See Below Exam Limited By: No Limitations General Appearance: Alert, WD/WN, No Apparent Distress Respiratory/Chest: No Respiratory Distress, Lungs Clear, Normal Breath Sounds, No Accessory Muscle Use, Chest Non-Tender Cardiovascular: Normal Peripheral Pulses, Regular Rate, Rhythm, No Murmur Peripheral Pulses: 2+: Dorsalis Pedis (L), Dorsalis Pedis (R) Extremities: Non-Tender, Pedal Edema (mild of left foot, 1+), Other (slight ecchymotic discoloration near surgical wounds. mild amount of serosanguinous drainage noted.). No: Increased Warmth, Redness Psychiatric: Normal Affect, Normal Mood Skin Exam: Warm, Dry, Intact, No Rash, Ecchymosis (slight color change near the surgical wounds) Course - Vital Signs Last Recorded V/S: Last Vital Signs Temp 96.1 F L 03/05/20 12:04 Pulse 94 03/05/20 12:04 Resp 20 03/05/20 12:04 BP 95/72 03/05/20 12:04 Pulse Ox 92 L 03/05/20 12:04 - Re-Assessments/Exams Free Text/Narrative Re-Assessment/Exam: 03/05/20 12:37 Patient presents to the ED as he is worried about color change in his foot and in need of a dressing change. The area was then dressed, and does appear to be healing appropriately, this is a postsurgical foot. There is a mild amount of serosanguineous fluid draining from the surgical wounds, which is to be expected. There is mild ecchymosis noted near the surgical wounds, but again looks to be within normal healing parameters. There is a mild amount of swelling as well noted, but the patient has noted that he is not been elevating his foot as much as he probably should. I did call Dr. Linares, in consultation with this patient, and he states that re-dressing the foot, and having him follow-up with him in the clinic tomorrow is okay with him at this time. The patient's foot will be cleansed with soap and water, and dressing will be changed. Patient is okay with this plan at this time as well. Departure - Departure Time of Disposition: 12:23 Disposition: Home, Self-Care 01 Condition: Good Clinical Impression: Encounter for surgical wound dressing change, Status post bunionectomy - Discharge Information *PRESCRIPTION DRUG MONITORING PROGRAM REVIEWED*: No *COPY OF PRESCRIPTION DRUG MONITORING REPORT IN PATIENT MCKENZIE: No Instructions: Incision Care, Adult, [id number] Referrals: Geneva Gutiérrez MD [Primary Care Provider] - Tarun Linares II, DPM [Physician] - 1 Day (appt made for mondayMar 06 1:45PM) Forms: ED Department Discharge Additional Instructions: You were evaluated in the ER today regarding your drainage from your surgical wound. Your wound was cleaned, and a sterile dressing was reapplied to the area. Your fishing hand, Dr. Linares was consulted on your visit today, and he will see you at his clinic tomorrow at 1:45 PM, for recheck and make sure everything is getting better as expected. Please continue all post-op instructions as laid forth by Dr. Linares, try to elevate your leg as much as possible as well to help relieve some of the swelling. Sepsis Event Note (ED) - Evaluation Sepsis Screening Result: No Definite Risk - Focused Exam Vital Signs: Vital Signs Temp Pulse Resp BP Pulse Ox 03/05/20 12:04 96.1 F L 94 20 95/72 92 L
== END 2020-03-05 12:45 | disposition home or self-care (01) ==
LOC: JD.ED 11:37
DX: Z48.01 Encounter for change or removal of surgical wound dressing (principal); J44.9 Chronic obstructive pulmonary disease, unspecified; I10 Essential (primary) hypertension; E78.00 Pure hypercholesterolemia, unspecified; I48.91 Unspecified atrial fibrillation; K21.9 Gastro-esophageal reflux disease without esophagitis; E66.9 Obesity, unspecified; Z68.39 Body mass index [BMI] 39.0-39.9, adult; Z98.890 Other specified postprocedural states; Z79.899 Other long term (current) drug therapy
CPT/HCPCS: 99282

== ENCOUNTER 2020-09-26 11:02 | Emergency (ER) | payer MEDICAID, OTHER ==
[2020-09-26] MEDS ORDERED: Ketorolac 30 MG/ML SDV IM ONE (11:39)
--- NOTE | 2020-09-26 14:08 | EDM.PDOC ---
ED HPI GENERAL MEDICAL PROBLEM - General Chief Complaint: Lower Extremity Injury/Pain Stated Complaint: L LEG PAIN Time Seen by Provider: 09/26/20 11:16 Source of Information: Reports: Patient History Limitations: Reports: No Limitations - History of Present Illness INITIAL COMMENTS - FREE TEXT/NARRATIVE: 60-year-old male presents to the emergency department with complaints of left groin pain. Patient states this started about a week or 2 ago. Complains of pain to left groin area with inability to bear weight on the left leg. He needs to use a walker to ambulate. Patient states when he is laying still in bed he has minimal discomfort however he is not able to raise the leg at all while laying in bed or to bear any weight while ambulating as he develops severe stabbing pain to the left inner groin. Denies any recent fever or chills. States this started sporadically and he just woke with the pain. Also reports that he has had this issue in the past with the right groin and was given muscle relaxers and it had resolved on its own. Patient denies any trauma or injury to this area. Left Groin Pain Score (Numeric/FACES): 10 - Related Data Allergies Allergy/AdvReac Type Severity Reaction Status Date / Time No Known Allergies Allergy Verified 09/26/20 11:15 Home Meds: Home Meds Omeprazole 20 mg PO DAILY 07/07/16 [History] Folic Acid 1 mg PO DAILY 09/26/17 [History] Metoprolol Tartrate 75 mg PO BID 09/26/17 [History] Thiamine [Vitamin B-1] 200 mg PO DAILY 09/26/17 [History] Cholecalciferol (Vitamin D3) [Vitamin D] 5,000 unit PO DAILY 01/09/19 [History] Diltiazem [Dilacor XR] 240 mg PO DAILY 01/09/19 [History] Magnesium Oxide 420 mg PO BID 01/09/19 [History] Multivitamin [Multivitamins] 1 each PO DAILY 01/09/19 [History] Rivaroxaban [Xarelto] 20 mg PO DAILY 01/09/19 [History] atorvaSTATin [Lipitor] 40 mg PO BEDTIME 01/09/19 [History] metFORMIN HCl [Metformin HCl] 500 mg PO DAILY 07/25/19 [History] oxyCODONE HCl/Acetaminophen [Percocet 5-325 mg Tablet] 1 each PO Q6H PRN #10 tablet 09/26/20 [Rx] oxyCODONE HCl/Acetaminophen [Percocet 5-325 mg Tablet] 1 each PO Q6H PRN #10 tablet 09/26/20 [Rx] predniSONE [Prednisone] 20 mg PO DAILY #5 tablet 09/26/20 [Rx] predniSONE [Prednisone] 20 mg PO DAILY #5 tablet 09/26/20 [Rx] Past Medical History - Past Health History Medical/Surgical History: Denies Medical/Surgical History HEENT History: Reports: Cataract Cardiovascular History: Reports: Afib, High Cholesterol, Hypertension Other Cardiovascular History: hx/o a-fib/RVR Respiratory History: Reports: COPD, Other (See Below) Other Respiratory History: 07/24/16 admitted with pneumonia Gastrointestinal History: Reports: GERD Genitourinary History: Reports: Renal Calculus Musculoskeletal History: Reports: Fracture Other Musculoskeletal History: rigth foot fracture 20 yrs ago; Fx of L wrist 2018 Neurological History: Reports: Other (See Below) Other Neuro History: With withdrawal for alcohol Psychiatric History: Reports: Addiction Other Psychiatric History: alcohol Endocrine/Metabolic History: Reports: Diabetes, Type II, Obesity/BMI 30+ Hematologic History: Reports: Anticoagulation Therapy Other Immunologic History: pt states that a doctor told him he had hep c once but his last check was ok Oncologic (Cancer) History: Reports: None Dermatologic History: Reports: None - Infectious Disease History Infectious Disease History: Reports: Hepatitis C, MRSA Other Infectious Disease History: Hep C per Demond Ponce hospitalist/[place], 06/2016. - Past Surgical History Head Surgeries/Procedures: Reports: None HEENT Surgical History: Reports: None Cardiovascular Surgical History: Reports: None Respiratory Surgical History: Reports: None GI Surgical History: Reports: None Endocrine Surgical History: Reports: None Musculoskeletal Surgical History: Reports: ORIF, Other (See Below) Other Musculoskeletal Surgeries/Procedures:: right toe -hammer toe surgery, left wrist surgery; BUNIONECTOMY Social & Family History - Family History Family Medical History: No Pertinent Family History Neurological: Reports: CVA Endocrine/Metabolic: Reports: Diabetes, type II Hematologic: Reports: Other (See Below) Other Hematologic Family History: hepatitias c Immunologic: Reports: None Oncologic: Reports: Leukemia - Tobacco Use Tobacco Use Status *Q: Never Tobacco User - Caffeine Use Caffeine Use: Reports: Tea - Alcohol Use Days Per Week of Alcohol Use: 4 Number of Drinks Per Day: 2 Total Drinks Per Week: 8 - Recreational Drug Use Recreational Drug Use: No - Living Situation & Occupation Living situation: Reports: , Alone Occupation: Unemployed Review of Systems - Review of Systems Review Of Systems: Comprehensive ROS is negative, except as noted in HPI. ED EXAM, GENERAL - Physical Exam Exam: See Below Exam Limited By: No Limitations General Appearance: Alert, WD/WN, Mild Distress Eye Exam: Bilateral Eye: PERRL Ears: Hearing Grossly Normal Nose: Normal Inspection Throat/Mouth: Normal Inspection, Normal Lips, Normal Voice, No Airway Compromise Head: Atraumatic, Normocephalic Neck: Normal Inspection, Supple, Non-Tender, Full Range of Motion Respiratory/Chest: No Respiratory Distress, Lungs Clear, Normal Breath Sounds, No Accessory Muscle Use, Chest Non-Tender Cardiovascular: Normal Peripheral Pulses, Regular Rate, Rhythm, No Edema, No Murmur Peripheral Pulses: 2+: Radial (L), Radial (R), Dorsalis Pedis (L), Dorsalis Pedis (R) GI/Abdominal: Normal Bowel Sounds, Soft, Non-Tender, No Distention (Male) Exam: Deferred Rectal (Males) Exam: Deferred Back Exam: Normal Inspection, Full Range of Motion Extremities: Normal Inspection, Normal Range of Motion, No Pedal Edema, Normal Capillary Refill. No: Non-Tender (left groin tenderness and pain with any movement of left lower extremity) Neurological: Alert, Oriented, Normal Cognition Psychiatric: Normal Affect, Normal Mood Skin Exam: Warm, Dry, Intact, Normal Color, No Rash Lymphatic: No Adenopathy Course - Vital Signs Text/Narrative:: 60-year-old male presenting the emergency department today with complaints of left groin pain. Patient states this started abruptly when he woke 1 morning with the pain. Patient states that he is unable to ambulate or bear any weight to that left lower extremity as he has an excruciating stabbing pain to the left groin. He states that he does not notice the pain while sitting or laying in bed. He has denied any recent fever, chills, nausea or vomiting. Denies any recent trauma. Upon assessment with patient lying flat he is unable to raise his left lower extremity due to the severity of the pain in his left groin. Patient did allow me to raise his leg and flex his knee at 90 degrees and allow full range of motion laterally and medially without discomfort. Upon palpation I am able to palpate the specific area within the left groin that he feels the discomfort and he states the palpation does give him some relief. There is no hernia appreciated. There is no warmth and redness appreciated. I have ordered an x-ray of the left hip, CBC, CMP and a C-reactive protein. I also ordered for the patient to receive Toradol 30 mg IM. Last Recorded V/S: Last Vital Signs Temp 97.6 F 09/26/20 11:08 Pulse 70 09/26/20 15:33 Resp 20 09/26/20 11:08 BP 140/83 09/26/20 15:33 Pulse Ox 97 09/26/20 15:33 - Orders/Labs/Meds Orders: Active Orders 24 hr Category Date Time Status Hip Min 2V or 3V w Pelvis Lt [CR] Stat Exams 09/26/20 11:39 Taken Labs: Laboratory Tests 09/26/20 09/26/20 Range/Units 13:56 13:56 WBC 8.67 (4.23-9.07) K/mm3 RBC 4.62 L (4.63-6.08) M/mm3 Hgb 13.2 L (13.7-17.5) gm/dl Hct 39.9 L (40.1-51.0) % MCV 86.4 (79.0-92.2) fl MCH 28.6 (25.7-32.2) pg MCHC 33.1 (32.2-35.5) g/dl RDW Std Deviation 47.2 H (35.1-43.9) fL Plt Count 232 (163-337) K/mm3 MPV 8.9 L (9.4-12.3) fl Neut % (Auto) 66.0 (34.0-67.9) % Lymph % (Auto) 16.5 L (21.8-53.1) % [place] % (Auto) 14.4 H (5.3-12.2) % Eos % (Auto) 2.2 (0.8-7.0) Baso % (Auto) 0.3 (0.1-1.2) % Neut # (Auto) 5.72 H (1.78-5.38) K/mm3 Lymph # (Auto) 1.43 (1.32-3.57) K/mm3 [place] # (Auto) 1.25 H (0.30-0.82) K/mm3 Eos # (Auto) 0.19 (0.04-0.54) K/mm3 Baso # (Auto) 0.03 (0.01-0.08) K/mm3 Sodium 143 (136-145) mEq/L Potassium 2.8 L (3.5-5.1) mEq/L Chloride 102 (98-107) mEq/L Carbon Dioxide 29 (21-32) mEq/L Anion Gap 14.8 (5-15) BUN 13 (7-18) mg/dL Creatinine 1.2 (0.7-1.3) mg/dL Est Cr Clr Drug Dosing 62.54 mL/min Estimated GFR (MDRD) > 60 (>60) mL/min BUN/Creatinine Ratio 10.8 L (14-18) Glucose 113 (80-115) mg/dL Calcium 8.5 (8.5-10.1) mg/dL Total Bilirubin 1.0 (0.2-1.0) mg/dL AST 36 (15-37) U/L ALT 44 (16-63) U/L Alkaline Phosphatase 55 (46-116) U/L C-Reactive Protein 4.7 H* (<1.0) mg/dL Total Protein 7.0 (6.4-8.2) g/dl Albumin 2.9 L (3.4-5.0) g/dl Globulin 4.1 gm/dL Albumin/Globulin Ratio 0.7 L (1-2) Meds: Medications Discontinued Medications Generic Name Dose Route Start Last Admin Trade Name Freq PRN Reason Stop Dose Admin Ketorolac Tromethamine 30 mg 09/26/20 11:39 09/26/20 11:45 Toradol IM 09/26/20 11:40 30 mg ONETIME ONE Administration Potassium Chloride 40 meq 09/26/20 15:03 09/26/20 15:27 Klor-Con M20 PO 09/26/20 15:04 40 meq ONETIME ONE Administration - Radiology Interpretation Free Text/Narrative:: Vrad radiology impression x-ray of the left hip with help pelvis: No acute findings. - Re-Assessments/Exams Free Text/Narrative Re-Assessment/Exam: 09/26/20 14:08 Patient states relief from pain after receiving the Toradol. He is able to flex and extend the left leg at the hip and raise the left leg while in the supine position with minimal discomfort. 09/26/20 14:48 CBC reveals a WBC of 8.67, hemoglobin 13.2, hematocrit 39.9, potassium 2.8, C- reactive protein 4.7 Ordered potassium 40 equivalents p.o. x1 dose prior to discharge. Discharge to home with a prescription for Percocet. Would like to have the patient take an anti-inflammatory however he is currently taking Xarelto so this would be a bad combination as it would increase his risk for bleeding. Also give him a prescription for prednisone and a referral to physical therapy. Departure - Departure Time of Disposition: 14:49 Disposition: Home, Self-Care 01 Condition: Good Clinical Impression: Left groin pain - Discharge Information Prescriptions: oxyCODONE HCl/Acetaminophen [Percocet 5-325 mg Tablet] 1 each PO Q6H PRN #10 tablet PRN Reason: Pain (Moderate 4-6) oxyCODONE HCl/Acetaminophen [Percocet 5-325 mg Tablet] 1 each PO Q6H PRN #10 t ablet PRN Reason: Pain (Moderate 4-6) predniSONE [Prednisone] 20 mg PO DAILY #5 tablet predniSONE [Prednisone] 20 mg PO DAILY #5 tablet Instructions: Pain Medicine Instructions, [id number] Referrals: Geneva Gutiérrez MD [Primary Care Provider] - Forms: ED Department Discharge Additional Instructions: You were seen in the emergency department today with complaints of left groin pain. He states this started abruptly. Denies any recent fever or chills. X- ray did not show anything acute. Lab work did not reveal any infective process however your potassium level is low. You were given potassium tab while in the emergency department. Recommend eating foods high in potassium such as banana or spinach.A prescription has been sent to your pharmacy for Percocet tabs. You may take 1 tab every 6 hours as needed for severe pain. You were also prescribed prednisone 20mg tab. Take one tab daily x 5 days. You have been given a referral to Physical therapy. Recommend that you follow up with primary care physician this next week as previously scheduled. Sepsis Event Note (ED) - Evaluation Sepsis Screening Result: No Definite Risk - Focused Exam Vital Signs: Vital Signs Temp Pulse Resp BP Pulse Ox 09/26/20 15:33 70 140/83 97 09/26/20 11:08 97.6 F 60 20 113/84 93 L - My Orders Last 24 Hours: My Active Orders 09/26/20 11:39 Hip Min 2V or 3V w Pelvis Lt [CR] Stat - Assessment/Plan Last 24 Hours: My Active Orders 09/26/20 11:39 Hip Min 2V or 3V w Pelvis Lt [CR] Stat
[2020-09-26] MEDS ORDERED: Potassium Chloride 20 MEQ Tab.ER PO ONE (15:03)
[2020-09-26 15:34] VITALS: BP 140/83; PULSE 70
--- NOTE | 2020-09-27 15:37 | CR ---
Pelvis and left hip: AP view of the pelvis was obtained as well as AP and frog-leg lateral views of the left hip. Comparison: Prior pelvis and right hip study of 08/17/16. Findings: Joint spaces within both hips are maintained. Sacroiliac joints appear within normal limits. No acute fracture or other bony abnormality is seen. Degenerative change is partially seen within the lower lumbar spine. Impression: 1. Degenerative change within the lower lumbar spine. 2. AP pelvis and two-view left hip exam shows nothing acute. Diagnostic code #2 I agree with preliminary report from [facility], finalized on 09/26/20, 2:41 PM DENTIST/OWNER
== END 2020-09-26 15:34 | disposition home or self-care (01) ==
LOC: JD.ED 11:02
DX: R10.32 Left lower quadrant pain (principal); I48.91 Unspecified atrial fibrillation; E78.00 Pure hypercholesterolemia, unspecified; I10 Essential (primary) hypertension; E11.9 Type 2 diabetes mellitus without complications; K21.9 Gastro-esophageal reflux disease without esophagitis; J44.9 Chronic obstructive pulmonary disease, unspecified; Z79.01 Long term (current) use of anticoagulants; Z79.899 Other long term (current) drug therapy; Z79.84 Long term (current) use of oral hypoglycemic drugs
CPT/HCPCS: 36415; 73502; 80053; 85025; 86140; 96372; 99283; A9270; J1885

== ENCOUNTER 2020-11-20 11:31 | Emergency (ER) | payer MEDICAID ==
[2020-11-20 11:45] VITALS: BP 158/87; PULSE 72
[2020-11-20] MEDS ORDERED: Acetaminophen/oxyCODONE 325-5 MG Tab PO ONE (12:22)
--- NOTE | 2020-11-20 12:27 | EDM.PDOC ---
ED HPI GENERAL MEDICAL PROBLEM - General Chief Complaint: Medication Administration Stated Complaint: GROIN PAIN Time Seen by Provider: 11/20/20 12:00 Source of Information: Reports: Patient History Limitations: Reports: No Limitations - History of Present Illness INITIAL COMMENTS - FREE TEXT/NARRATIVE: 60-year-old male who is a [facility] attends [facility] ED primarily for pain joshua jarvis. He is currently moving his entire apartment furnishings in the same building about 2-3 doors down from where he resides now. He states he spends most of his time in a seated or reclined position or lying down position due to pain in his left groin. Has had this for many years. He is simply asking for a few Percocet tablets to help him get through the pain so that he can properly move his furnishings. He also has bilateral peripheral neuropathy in both lower extremities and he cannot member if he is ever been on a trial of gabapentin to help relieve pain. A lot of this pain is sharp lancinating pain with constant burning numbness tingling particularly in both feet and tips of certain fingers. Patient has not had no fracture in his left hip. It is unclear if he has degenerative arthritic change in his left hip as a cause of his pain as it is much worse with standing and moving and trying to walk. He walks with the aid of a walker. Onset: Other (Chronic problem for greater than 3 years) Duration: Chronic (Problem), Waxing/Waning Location: Reports: Other (Left inguinal area groin felt to be coming from the left hip) Quality: Reports: Ache, Other (Numbness tingling and lancinating pain in both feet from peripheral neuropathy) Severity: Moderate Improves with: Reports: Rest (Lying flat.) Worsens with: Reports: Other Context: Denies: Activity, Exercise (Standing walking and pushing and carrying make it worse.), Lifting, Sick Contact, Trauma, Other Associated Symptoms: Reports: Other (Chronic peripheral neuropathy both feet and some of the tips of his fingers.) Treatments [employer] ADMINISTRATOR: Reports: Acetaminophen, Other (see below) (He cannot take NSAIDs since he is on Xarelto.) Lower Back Pain Score (Numeric/FACES): 8 - Related Data Allergies Allergy/AdvReac Type Severity Reaction Status Date / Time No Known Allergies Allergy Verified 11/20/20 11:45 Home Meds: Home Meds Omeprazole 20 mg PO DAILY 12/08/16 [History] Folic Acid 1 mg PO DAILY 09/26/17 [History] Metoprolol Tartrate 75 mg PO BID 09/26/17 [History] Thiamine [Vitamin B-1] 200 mg PO DAILY 09/26/17 [History] Cholecalciferol (Vitamin D3) [Vitamin D] 5,000 unit PO DAILY 01/09/19 [History] Diltiazem [Dilacor XR] 240 mg PO DAILY 01/09/19 [History] Magnesium Oxide 420 mg PO BID 01/09/19 [History] Multivitamin [Multivitamins] 1 each PO DAILY 01/09/19 [History] Rivaroxaban [Xarelto] 20 mg PO DAILY 01/09/19 [History] atorvaSTATin [Lipitor] 40 mg PO BEDTIME 01/09/19 [History] metFORMIN HCl [Metformin HCl] 500 mg PO DAILY 07/25/19 [History] Gabapentin [Neurontin] 600 mg PO BEDTIME #30 tab 11/20/20 [Rx] oxyCODONE HCl/Acetaminophen [Percocet 5-325 mg Tablet] 1 - 2 each PO Q4H PRN #12 tablet 11/20/20 [Rx] Past Medical History - Past Health History Medical/Surgical History: Denies Medical/Surgical History HEENT History: Reports: Cataract Cardiovascular History: Reports: Afib, High Cholesterol, Hypertension Other Cardiovascular History: hx/o a-fib/RVR Respiratory History: Reports: COPD, Other (See Below) Other Respiratory History: 07/24/16 admitted with pneumonia Gastrointestinal History: Reports: GERD Genitourinary History: Reports: Renal Calculus Musculoskeletal History: Reports: Fracture Other Musculoskeletal History: rigth foot fracture 20 yrs ago; Fx of L wrist 2018 Neurological History: Reports: Other (See Below) Other Neuro History: With withdrawal for alcohol Psychiatric History: Reports: Addiction Other Psychiatric History: alcohol Endocrine/Metabolic History: Reports: Diabetes, Type II, Obesity/BMI 30+ Hematologic History: Reports: Anticoagulation Therapy Other Immunologic History: pt states that a doctor told him he had hep c once but his last check was ok Oncologic (Cancer) History: Reports: None Dermatologic History: Reports: None - Infectious Disease History Infectious Disease History: Reports: Hepatitis C, MRSA Other Infectious Disease History: Hep C per Demond Ponce hospitalist/[place], 06/2016. - Past Surgical History Head Surgeries/Procedures: Reports: None HEENT Surgical History: Reports: None Cardiovascular Surgical History: Reports: None Respiratory Surgical History: Reports: None GI Surgical History: Reports: None Endocrine Surgical History: Reports: None Musculoskeletal Surgical History: Reports: ORIF, Other (See Below) Other Musculoskeletal Surgeries/Procedures:: right toe -hammer toe surgery, left wrist surgery; BUNIONECTOMY Social & Family History - Family History Family Medical History: No Pertinent Family History Neurological: Reports: CVA Endocrine/Metabolic: Reports: Diabetes, type II Hematologic: Reports: Other (See Below) Other Hematologic Family History: hepatitias c Immunologic: Reports: None Oncologic: Reports: Leukemia - Tobacco Use Tobacco Use Status *Q: Never Tobacco User - Caffeine Use Caffeine Use: Reports: Tea - Alcohol Use Days Per Week of Alcohol Use: 7 Number of Drinks Per Day: 7 Total Drinks Per Week: 49 - Recreational Drug Use Recreational Drug Use: No - Living Situation & Occupation Living situation: Reports: , Alone Occupation: Unemployed ED ROS GENERAL - Review of Systems Review Of Systems: See Below Constitutional: Reports: Malaise, Weakness. Denies: Fever, Chills HEENT: Reports: No Symptoms Respiratory: Reports: Shortness of Breath, Wheezing, Cough, Other. Denies: Pleuritic Chest Pain Cardiovascular: Reports: Blood Pressure Problem, Dyspnea on Exertion (Chronically), Lightheadedness. Denies: Chest Pain (Known COPD.), Claudication, Edema (Occasional.), Orthopnea Endocrine: Reports: Fatigue ( due to COPD.) GI/Abdominal: Reports: Constipation (There is no problems with constipation) : Reports: Frequency, Other (Nocturia x2. Known BPH. Past history of renal stones.) Musculoskeletal: Reports: Neck Pain, Shoulder Pain, Back Pain, Joint Pain (Knees and hips at time), Other (Worst pain is in his left groin suggesting pain coming from the left hip from degenerative arthritic change.) Skin: Reports: No Symptoms Neurological: Reports: No Symptoms, Paresthesia (Both feet up to mid tib-fib. Also tips of fingers particularly second third and first fingertips.) Psychiatric: Reports: No Symptoms (Questionable PTSD.), Other Hematologic/Lymphatic: Reports: No Symptoms Immunologic: Reports: No Symptoms ED EXAM, GENERAL - Physical Exam Exam: See Below Exam Limited By: No Limitations General Appearance: Alert, WD/WN, No Apparent Distress, Other (Temperature is 36.1 degrees. Heart rate 72 and sinus respiratory to 16 with O2 sats of 99% room air BP mildly elevated 158/87.) Eye Exam: Bilateral Eye: Normal Inspection (No blepharal pallor or scleral icterus.), PERRL Throat/Mouth: Normal Inspection, Normal Lips, Normal Oropharynx. No: Normal Teeth Head: Atraumatic, Normocephalic Neck: No: Carotid Bruit, Lymphadenopathy (L), Lymphadenopathy (R) Respiratory/Chest: No Respiratory Distress, Decreased Breath Sounds, Wheezing (The steroid to the lower 40% lung mcleod bilaterally. Expiratory wheezes throughout all lobes.). No: Lungs Clear, Rales Cardiovascular: No Edema, No Gallop, No Murmur, No Rub, Irregularly Irregular (Atrial fibrillation). No: Normal Peripheral Pulses Peripheral Pulses: 1+: Posterior Tibial (L), Posterior Tibial (R), Dorsalis Pedis (L), Dorsalis Pedis (R), 2+: Carotid (L), Carotid (R) Back Exam: Vertebral Tenderness (Tenderness throughout lumbar spine facet joints from L1-L5. Also pain throughout both sacroiliac joints.), Other (Mildly increased lordotic curvature.) Extremities: Other (Very limited external rotation and internal rotation left hip with pain on internal rotation. Left knee joint also shows evidence of osteoarthritic changes. As of surgery on both feet.) Neurological: Alert, Oriented, CN II-XII Intact, Normal Cognition, Sensory/Motor Deficit (Sensory deficits to mid tib-fib bilaterally from peripheral neuropathy.) Psychiatric: Normal Affect, Normal Mood Skin Exam: Warm, Dry, Intact, Normal Color, No Rash Course - Vital Signs Last Recorded V/S: Last Vital Signs Temp 36.1 C 11/20/20 11:43 Pulse 72 11/20/20 11:43 Resp 16 11/20/20 11:43 BP 158/87 H 11/20/20 11:43 Pulse Ox 99 11/20/20 11:43 - Orders/Labs/Meds Meds: Medications Discontinued Medications Generic Name Dose Route Start Last Admin Trade Name Freq PRN Reason Stop Dose Admin Oxycodone/Acetaminophen 1 tab 11/20/20 12:22 11/20/20 12:26 Acetaminophen/Oxycodone 325-5 Mg Tab PO 11/20/20 12:23 1 tab ONETIME ONE Administration - Radiology Interpretation Free Text/Narrative:: 60-year-old male presents to the ED for pain management. He has chronic pain in his left inguinal area likely from degenerative arthritic change of the hip but he offers no formal diagnosis ever being made. He has had it for over 3 years. Is worse with trying to walk lift push pull or carry. States is better if he lies flat. He does not have any neuropathy any knee anteromedial aspect of his right thigh to suggest meralgia paresthetica. He is currently asking for some Percocet tablets to get him through his move from his apartment that he is res iding in and out down the [place] to a different apartment which is 2 doors down from where he resides now. Plan Percocet 5/325 mg p.o. for now. I did write a prescription for 12 further tablets that can be used 1 tablet every 6 hours necessary for severe pain relief. I also wrote a prescription for gabapentin 600 mg once daily at bedtime to try and help with his peripheral neuropathy pain. Suggest a trial of 3 weeks to a month and if it is helping then he could get a prescription from the [place] [facility]. Departure - Departure Time of Disposition: 12:22 Disposition: Home, Self-Care 01 Condition: Fair Clinical Impression: Pain management - Discharge Information *PRESCRIPTION DRUG MONITORING PROGRAM REVIEWED*: Not Applicable *COPY OF PRESCRIPTION DRUG MONITORING REPORT IN PATIENT MCKENZIE: Not Applicable Prescriptions: Gabapentin [Neurontin] 600 mg PO BEDTIME #30 tab oxyCODONE HCl/Acetaminophen [Percocet 5-325 mg Tablet] 1 - 2 each PO Q4H PRN #12 tablet PRN Reason: pain relief. Referrals: Geneva Gutiérrez MD [Primary Care Provider] - Forms: ED Department Discharge Additional Instructions: Evaluation in the emergency room today in regards to chronic pain left groin with associated neuropathy in both lower extremities and fingertips. You were treated with 1 tablet of Percocet 5/325 mg tablets by mouth while in the ED for pain relief over the next 4 to 6 hours. Prescription has been written for 12 further tablets that can be taken 1 or 2 every 6-8 hours as needed for pain r elief in the future when really needed. Suggest a trial of gabapentin 600 mg every night at bedtime for 21 to 30 days to see if it will relieve the good portion of your peripheral neuropathy pain. In some patients it can take away as much is 90% of your pain. Tube Bender Hand shins were sent across the street to clinical pharmacy since it is the closest pharmacy to the hospital Sepsis Event Note (ED) - Evaluation Sepsis Screening Result: No Definite Risk - Focused Exam Vital Signs: Vital Signs Temp Pulse Resp BP Pulse Ox 11/20/20 11:43 36.1 C 72 16 158/87 H 99
== END 2020-11-20 12:51 | disposition home or self-care (01) ==
LOC: JD.ED 11:31
DX: G89.29 Other chronic pain (principal); R10.32 Left lower quadrant pain; K21.9 Gastro-esophageal reflux disease without esophagitis; E11.9 Type 2 diabetes mellitus without complications; E78.00 Pure hypercholesterolemia, unspecified; E66.9 Obesity, unspecified; I10 Essential (primary) hypertension; Z87.442 Personal history of urinary calculi; Z68.37 Body mass index [BMI] 37.0-37.9, adult; Z79.899 Other long term (current) drug therapy; Z79.84 Long term (current) use of oral hypoglycemic drugs
CPT/HCPCS: 99283; A9270

== ENCOUNTER 2020-11-24 15:33 | Emergency (ER) | payer MEDICAID ==
[2020-11-24 15:48] VITALS: BP 134/107; PULSE 66
--- NOTE | 2020-11-24 16:00 | EDM.PDOC ---
ED HPI GENERAL MEDICAL PROBLEM - General Chief Complaint: Lower Extremity Injury/Pain Stated Complaint: GROIN PAIN Time Seen by Provider: 11/24/20 16:00 - History of Present Illness INITIAL COMMENTS - FREE TEXT/NARRATIVE: Patient left without being seen left leg Pain Score (Numeric/FACES): 10 - Related Data Allergies Allergy/AdvReac Type Severity Reaction Status Date / Time No Known Allergies Allergy Verified 11/24/20 15:49 Home Meds: Home Meds Omeprazole 20 mg PO DAILY 07/07/16 [History] Folic Acid 1 mg PO DAILY 09/26/17 [History] Metoprolol Tartrate 75 mg PO BID 09/26/17 [History] Thiamine [Vitamin B-1] 200 mg PO DAILY 09/26/17 [History] Cholecalciferol (Vitamin D3) [Vitamin D] 5,000 unit PO DAILY 01/09/19 [History] Diltiazem [Dilacor XR] 240 mg PO DAILY 01/09/19 [History] Magnesium Oxide 420 mg PO BID 01/09/19 [History] Multivitamin [Multivitamins] 1 each PO DAILY 01/09/19 [History] Rivaroxaban [Xarelto] 20 mg PO DAILY 01/09/19 [History] atorvaSTATin [Lipitor] 40 mg PO BEDTIME 01/09/19 [History] metFORMIN HCl [Metformin HCl] 500 mg PO DAILY 07/25/19 [History] Gabapentin [Neurontin] 600 mg PO BEDTIME #30 tab 11/20/20 [Rx] oxyCODONE HCl/Acetaminophen [Percocet 5-325 mg Tablet] 1 - 2 each PO Q4H PRN #12 tablet 11/20/20 [Rx] Past Medical History - Past Health History Medical/Surgical History: Denies Medical/Surgical History HEENT History: Reports: Cataract Cardiovascular History: Reports: Afib, High Cholesterol, Hypertension Other Cardiovascular History: hx/o a-fib/RVR Respiratory History: Reports: COPD, Other (See Below) Other Respiratory History: 07/24/16 admitted with pneumonia Gastrointestinal History: Reports: GERD Genitourinary History: Reports: Renal Calculus Musculoskeletal History: Reports: Fracture Other Musculoskeletal History: rigth foot fracture 20 yrs ago; Fx of L wrist 2018 Neurological History: Reports: Other (See Below) Other Neuro History: With withdrawal for alcohol Psychiatric History: Reports: Addiction Other Psychiatric History: alcohol Endocrine/Metabolic History: Reports: Diabetes, Type II, Obesity/BMI 30+ Hematologic History: Reports: Anticoagulation Therapy Other Immunologic History: pt states that a doctor told him he had hep c once but his last check was ok Oncologic (Cancer) History: Reports: None Dermatologic History: Reports: None - Infectious Disease History Infectious Disease History: Reports: Hepatitis C, MRSA Other Infectious Disease History: Hep C per Dx Jayshree Ponce hospitalist/[place], 06/2016. - Past Surgical History Head Surgeries/Procedures: Reports: None HEENT Surgical History: Reports: None Cardiovascular Surgical History: Reports: None Respiratory Surgical History: Reports: None GI Surgical History: Reports: None Endocrine Surgical History: Reports: None Musculoskeletal Surgical History: Reports: ORIF, Other (See Below) Other Musculoskeletal Surgeries/Procedures:: right toe -hammer toe surgery, left wrist surgery; BUNIONECTOMY Social & Family History - Family History Family Medical History: No Pertinent Family History Neurological: Reports: CVA Endocrine/Metabolic: Reports: Diabetes, type II Hematologic: Reports: Other (See Below) Other Hematologic Family History: hepatitias c Immunologic: Reports: None Oncologic: Reports: Leukemia - Tobacco Use Tobacco Use Status *Q: Never Tobacco User - Caffeine Use Caffeine Use: Reports: Tea - Recreational Drug Use Recreational Drug Use: No - Living Situation & Occupation Living situation: Reports: , Alone Occupation: Unemployed Review of Systems - Review of Systems Review Of Systems: Unable To Obtain Reason Not Obtained: Patient left without being seen ED EXAM, GENERAL - Physical Exam Exam: See Below Reason Not Obtained: Patient left without being seen Course - Vital Signs Last Recorded V/S: Last Vital Signs Temp 36.2 C 11/24/20 15:45 Pulse 66 11/24/20 15:45 Resp 18 11/24/20 15:45 BP 134/107 H 11/24/20 15:45 Pulse Ox 91 L 11/24/20 15:45 Departure - Departure Time of Disposition: 07:12 Disposition: Home, Self-Care 01 Clinical Impression: Left groin pain - Discharge Information Referrals: Geneva Gutiérrez MD [Primary Care Provider] - Forms: ED Department Discharge Sepsis Event Note (ED) - Evaluation Sepsis Screening Result: No Definite Risk
== END 2020-11-24 16:55 | disposition home or self-care (01) ==
LOC: JD.ED 15:33
DX: R10.32 Left lower quadrant pain (principal); Z53.21 Procedure and treatment not carried out due to patient leaving prior to being seen by health care provider

== ENCOUNTER 2020-11-25 14:15 | Emergency (ER) | payer OTHER, MEDICAID ==
[2020-11-25 14:48] VITALS: PULSE 76
[2020-11-25] MEDS ORDERED: Acetaminophen/oxyCODONE 325-5 MG Tab PO ONE (15:20)
--- NOTE | 2020-11-25 15:24 | EDM.PDOC ---
ED HPI GENERAL MEDICAL PROBLEM - General Chief Complaint: Lower Extremity Injury/Pain Stated Complaint: GROIN PAIN/BACK PAIN/LEG PAIN Time Seen by Provider: 11/25/20 14:39 Source of Information: Reports: Patient History Limitations: Reports: No Limitations - History of Present Illness INITIAL COMMENTS - FREE TEXT/NARRATIVE: 60-year-old male presents to the emergency department today with complaints of left groin, hip and low back pain. Of note patient was recently seen in the ER on several occasions due to this chronic pain. He reports to me that the pain has been worse over the past couple of days as he is trying to move out of his apartment and into a new apartment which is 2 doors down and he does not have much help to help him. He states he needs to move a refrigerator and pushing and pulling increases the pain. He states he gets sharp shooting pain down his left inner groin and has low back pain when ambulating or sitting for long periods of time. He states the pain is much relieved when he is laying flat. I suspect the patient is here only for pain management as on his most recent visit on 11/20/2020 he gave the physician a very similar story that he was living 2 doors down and moving refrigerators and such Which was exacerbating his pain. At that time he was given some Percocet and started on gabapentin. I asked the patient if the gabapentin has helped and he said yes it has but he has "forgotten" to take it for the last 2 days. I had a lengthy discussion with this patient in regards to the fact that he needs to follow-up with his primary care provider for his pain control. The ER is not an appropriate setting to manage chronic pain. The patient then tells me that he does not like his primary care provider, and I recommended that he find a new one. He denies any issues with bowel or bladder. Left Leg Pain Score (Numeric/FACES): 10 - Related Data Allergies Allergy/AdvReac Type Severity Reaction Status Date / Time No Known Allergies Allergy Verified 11/25/20 14:36 Home Meds: Home Meds Omeprazole 20 mg PO DAILY 07/07/16 [History] Folic Acid 1 mg PO DAILY 09/26/17 [History] Metoprolol Tartrate 75 mg PO BID 09/26/17 [History] Thiamine [Vitamin B-1] 200 mg PO DAILY 09/26/17 [History] Cholecalciferol (Vitamin D3) [Vitamin D] 5,000 unit PO DAILY 01/09/19 [History] Diltiazem [Dilacor XR] 240 mg PO DAILY 01/09/19 [History] Magnesium Oxide 420 mg PO BID 01/09/19 [History] Multivitamin [Multivitamins] 1 each PO DAILY 01/09/19 [History] Rivaroxaban [Xarelto] 20 mg PO DAILY 01/09/19 [History] atorvaSTATin [Lipitor] 40 mg PO BEDTIME 01/09/19 [History] metFORMIN HCl [Metformin HCl] 500 mg PO DAILY 07/25/19 [History] Gabapentin [Neurontin] 600 mg PO BEDTIME #30 tab 11/20/20 [Rx] oxyCODONE HCl/Acetaminophen [Percocet 5-325 mg Tablet] 1 - 2 each PO Q4H PRN #12 tablet 11/20/20 [Rx] oxyCODONE HCl/Acetaminophen [Percocet 5-325 mg Tablet] 1 each PO Q6H PRN #10 tablet 11/25/20 [Rx] Past Medical History - Past Health History Medical/Surgical History: Denies Medical/Surgical History HEENT History: Reports: Cataract Cardiovascular History: Reports: Afib, High Cholesterol, Hypertension Other Cardiovascular History: hx/o a-fib/RVR Respiratory History: Reports: COPD, Other (See Below) Other Respiratory History: 07/24/16 admitted with pneumonia Gastrointestinal History: Reports: GERD Genitourinary History: Reports: Renal Calculus Musculoskeletal History: Reports: Fracture Other Musculoskeletal History: rigth foot fracture 20 yrs ago; Fx of L wrist 2018 Neurological History: Reports: Other (See Below) Other Neuro History: With withdrawal for alcohol Psychiatric History: Reports: Addiction Other Psychiatric History: alcohol Endocrine/Metabolic History: Reports: Diabetes, Type II, Obesity/BMI 30+ Hematologic History: Reports: Anticoagulation Therapy Other Immunologic History: pt states that a doctor told him he had hep c once but his last check was ok Oncologic (Cancer) History: Reports: None Dermatologic History: Reports: None - Infectious Disease History Infectious Disease History: Reports: Hepatitis C, MRSA Other Infectious Disease History: Hep C per lilly Smith/[place], 06/2016. - Past Surgical History Head Surgeries/Procedures: Reports: None Cardiovascular Surgical History: Reports: None Musculoskeletal Surgical History: Reports: ORIF, Other (See Below) Other Musculoskeletal Surgeries/Procedures:: right toe -hammer toe surgery, left wrist surgery; BUNIONECTOMY Social & Family History - Family History Family Medical History: No Pertinent Family History Neurological: Reports: CVA Endocrine/Metabolic: Reports: Diabetes, type II Hematologic: Reports: Other (See Below) Other Hematologic Family History: hepatitias c Immunologic: Reports: None Oncologic: Reports: Leukemia - Tobacco Use Tobacco Use Status *Q: Former Tobacco User Used Tobacco, but Quit: Yes Month/Year Tobacco Last Used: 2017 - Caffeine Use Caffeine Use: Reports: None - Recreational Drug Use Recreational Drug Use: No - Living Situation & Occupation Living situation: Reports: , Alone Occupation: Unemployed Review of Systems - Review of Systems Review Of Systems: Comprehensive ROS is negative, except as noted in HPI. ED EXAM, GENERAL - Physical Exam Exam: See Below Exam Limited By: No Limitations General Appearance: Alert, WD/WN, No Apparent Distress Ears: Normal External Exam, Hearing Grossly Normal Nose: Normal Inspection Throat/Mouth: Normal Inspection, Normal Lips, Normal Voice, No Airway Compromise Head: Atraumatic Neck: Normal Inspection, Supple, Non-Tender, Full Range of Motion Respiratory/Chest: No Respiratory Distress, No Accessory Muscle Use Cardiovascular: Normal Peripheral Pulses, Regular Rate, Rhythm Peripheral Pulses: 2+: Radial (L), Radial (R) GI/Abdominal: No Distention (Male) Exam: Deferred Rectal (Males) Exam: Deferred Back Exam: Normal Inspection, Paraspinal Tenderness (left lumbar area), Vertebral Tenderness (lumbar) Extremities: Normal Inspection, Normal Range of Motion, Non-Tender, No Pedal Edema, Normal Capillary Refill Neurological: Alert, Oriented, Normal Cognition Psychiatric: Normal Affect, Normal Mood Skin Exam: Warm, Dry, Intact, Normal Color, No Rash Lymphatic: No Adenopathy Course - Vital Signs Text/Narrative:: Again a 60-year-old male with complaints of chronic groin, left hip and low back pain. Request pain medications. Patient has not followed up with his primary care physician since being seen and treated in the emergency department on the last 2 visits. Is not able to take NSAIDs as he is on Xarelto. States he is seeing physical therapy and has been there 1 time. He has an appointment scheduled next week so he says. Had a very lengthy discussion with the patient regarding not using the emergency department for his chronic pain management. At 1 point in the conversation patient was even requesting if I could just give him all of the pills for his this prescription from the emergency department here. I have given him 1 percocet tab. He will be given a prescription for percocet 10 tabs. Then he will need to follow up with his primary care provider in the clinic for chronic pain management. Last Recorded V/S: Last Vital Signs Temp 97.3 F 11/25/20 14:39 Pulse 76 11/25/20 14:39 Resp 20 11/25/20 14:39 BP 135/105 H 11/25/20 14:39 Pulse Ox 92 L 11/25/20 14:39 - Orders/Labs/Meds Meds: Medications Discontinued Medications Generic Name Dose Route Start Last Admin Trade Name Freq PRN Reason Stop Dose Admin Oxycodone/Acetaminophen 1 tab 11/25/20 15:20 11/25/20 15:26 Acetaminophen/Oxycodone 325-5 Mg Tab PO 11/25/20 15:21 1 tab ONETIME ONE Administration Departure - Departure Time of Disposition: 15:23 Disposition: Home, Self-Care 01 Condition: Good Clinical Impression: Pain management - Discharge Information Prescriptions: oxyCODONE HCl/Acetaminophen [Percocet 5-325 mg Tablet] 1 each PO Q6H PRN #10 tablet PRN Reason: Pain (Moderate 4-6) Referrals: Geneva Gutiérrez MD [Primary Care Provider] - Forms: ED Department Discharge Additional Instructions: You were seen in the emergency department today with complaints of pain in your left groin, hip and low back. This pain appears to be chronic. You did receive 1 Percocet tab while in the emergency department. I have sent a prescription for some Percocet to your pharmacy. As we discussed, however, you cannot continue coming to the emergency department for pain management. You need to follow-up with your primary care physician for your pain management. Also recommend that you follow-up with Dr. Cordova, orthopedic surgeon at [facility]. They are located on the clinic side of this hospital. The phone number is [phone]. Also continue with your physical therapy as they likely will be able to help you significantly. Sepsis Event Note (ED) - Evaluation Sepsis Screening Result: No Definite Risk - Focused Exam Vital Signs: Vital Signs Temp Pulse Resp BP Pulse Ox 11/25/20 14:39 97.3 F 76 20 135/105 H 92 L
[2020-11-25 15:56] VITALS: BP 140/80
== END 2020-11-25 15:56 | disposition home or self-care (01) ==
LOC: JD.ED 14:15
DX: G89.29 Other chronic pain (principal); M25.552 Pain in left hip; M54.5 Low back pain; I48.91 Unspecified atrial fibrillation; E78.00 Pure hypercholesterolemia, unspecified; I10 Essential (primary) hypertension; K21.9 Gastro-esophageal reflux disease without esophagitis; E11.9 Type 2 diabetes mellitus without complications; E66.9 Obesity, unspecified; J44.9 Chronic obstructive pulmonary disease, unspecified; Z79.01 Long term (current) use of anticoagulants; Z79.899 Other long term (current) drug therapy; Z79.84 Long term (current) use of oral hypoglycemic drugs; Z87.891 Personal history of nicotine dependence
CPT/HCPCS: 99283; A9270

== ENCOUNTER 2020-12-25 09:33 | Emergency (ER) | payer OTHER, MEDICAID ==
[2020-12-25] MEDS ORDERED: Diltiazem 50 MG/10 ML SDV IVPUSH ONE ×4 (09:55→11:39)
[2020-12-25] MEDS ORDERED: Furosemide 40 MG/4 ML VIAL IVPUSH ONE (09:57)
[2020-12-25] MEDS ORDERED: Diltiazem 100 MG in Sodium Chloride 0.9% 100 ML IV SCH (10:00)
[2020-12-25] MEDS ORDERED: Sodium Chloride 0.9% 1,000 ML IV SCH (10:00)
[2020-12-25 10:03] VITALS: BP 148/111; PULSE 190
--- NOTE | 2020-12-25 10:04 | EDM.PDOC ---
ED HPI GENERAL MEDICAL PROBLEM - General Chief Complaint: Cardiovascular Problem Stated Complaint: FOOT COMPLAINT Time Seen by Provider: 12/25/20 09:50 Source of Information: Reports: Patient History Limitations: Reports: No Limitations - History of Present Illness INITIAL COMMENTS - FREE TEXT/NARRATIVE: 60-year-old male presents to the ED for evaluation of 2 problems. 1 he is concerned about ecchymoses of his right great toe. He cannot member injuring the area. He has severe peripheral neuropathy in both feet. He has marked dependent edema both lower extremities making it extremely difficult for him to walk today. He appreciates shortness of breath on minimal exertion and feeling lightheaded and dizzy and generalized weakness. He was found to be in atrial fibrillation with a rate up as high as 192/min. He has a nonproductive cough. He does have some mild central chest pressure discomfort. Patient has a history of chronic atrial fibrillation and is on Xarelto 20 mg daily. He was concerned that he is developing gangrene of his right great toe. However this appears to be bruising on cursory examination. Onset: Unknown/Unsure (Patient is unclear as to when he appreciated more shortness of breath but believes it started yesterday. He did not sleep well all night but he does not sleep well at the best of times.) Duration: Day(s):, Getting Worse Location: Reports: Generalized (Increased edema lower extremities. Increased shortness of breath on minimal exertion.) Quality: Reports: Burning (Neuropathy pain both lower extremities chronically.) Severity: Severe Improves with: Reports: Rest Worsens with: Reports: Movement (He is less short of breath at rest.) Context: Denies: Activity ( Worse with movement or trying to walk.), Exercise, Lifting, Sick Contact, Trauma, Other Associated Symptoms: Reports: Chest Pain, Cough, Loss of Appetite, Malaise, Rash (Ecchymoses right great dorsal toe.), Shortness of Breath, Weakness (Particular in his lower extremities.). 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: Reports: Other (see below) (Only his prescribed medications.) Left Groin Pain Score (Numeric/FACES): 10 - Related Data Allergies Allergy/AdvReac Type Severity Reaction Status Date / Time No Known Allergies Allergy Verified 12/25/20 10:03 Home Meds: Home Meds Omeprazole 20 mg PO DAILY 07/07/16 [History] Folic Acid 1 mg PO DAILY 09/26/17 [History] Metoprolol Tartrate 75 mg PO BID 09/26/17 [History] Thiamine [Vitamin B-1] 200 mg PO DAILY 09/26/17 [History] Cholecalciferol (Vitamin D3) [Vitamin D] 5,000 unit PO DAILY 01/09/19 [History] Diltiazem [Dilacor XR] 240 mg PO DAILY 01/09/19 [History] Magnesium Oxide 420 mg PO BID 01/09/19 [History] Multivitamin [Multivitamins] 1 each PO DAILY 01/09/19 [History] Rivaroxaban [Xarelto] 20 mg PO DAILY 01/09/19 [History] atorvaSTATin [Lipitor] 40 mg PO BEDTIME 01/09/19 [History] metFORMIN HCl [Metformin HCl] 500 mg PO DAILY 07/25/19 [History] Gabapentin [Neurontin] 600 mg PO BEDTIME #30 tab 11/20/20 [Rx] oxyCODONE HCl/Acetaminophen [Percocet 5-325 mg Tablet] 1 - 2 each PO Q4H PRN #12 tablet 11/20/20 [Rx] oxyCODONE HCl/Acetaminophen [Percocet 5-325 mg Tablet] 1 each PO Q6H PRN #10 tablet 11/25/20 [Rx] Past Medical History - Past Health History Medical/Surgical History: Denies Medical/Surgical History HEENT History: Reports: Cataract Cardiovascular History: Reports: Afib, High Cholesterol, Hypertension Other Cardiovascular History: hx/o a-fib/RVR Respiratory History: Reports: COPD, Other (See Below) Other Respiratory History: 07/24/16 admitted with pneumonia Gastrointestinal History: Reports: GERD Genitourinary History: Reports: Renal Calculus Musculoskeletal History: Reports: Fracture Other Musculoskeletal History: rigth foot fracture 20 yrs ago; Fx of L wrist 2019 Neurological History: Reports: Other (See Below) Other Neuro History: With withdrawal for alcohol Psychiatric History: Reports: Addiction Other Psychiatric History: alcohol Endocrine/Metabolic History: Reports: Diabetes, Type II, Obesity/BMI 30+ Hematologic History: Reports: Anticoagulation Therapy Other Immunologic History: pt states that a doctor told him he had hep c once but his last check was ok Oncologic (Cancer) History: Reports: None Dermatologic History: Reports: None - Infectious Disease History Infectious Disease History: Reports: Hepatitis C, MRSA Other Infectious Disease History: Hep C per Dx Jayshree Ponce hospitalist/[place], 06/2016. - Past Surgical History Head Surgeries/Procedures: Reports: None Cardiovascular Surgical History: Reports: None Musculoskeletal Surgical History: Reports: ORIF, Other (See Below) Other Musculoskeletal Surgeries/Procedures:: right toe -hammer toe surgery, left wrist surgery; BUNIONECTOMY Social & Family History - Family History Family Medical History: No Pertinent Family History Neurological: Reports: CVA Endocrine/Metabolic: Reports: Diabetes, type II Hematologic: Reports: Other (See Below) Other Hematologic Family History: hepatitias c Immunologic: Reports: None Oncologic: Reports: Leukemia - Caffeine Use Caffeine Use: Reports: None - Living Situation & Occupation Living situation: Reports: , Alone Occupation: Unemployed ED ROS GENERAL - Review of Systems Review Of Systems: See Below Constitutional: Reports: Malaise, Weakness, Fatigue, Decreased Appetite, Weight Gain (He is not sure how much but he knows he is gaining weight.). Denies: Fever, Chills HEENT: Reports: Glasses (For reading) Respiratory: Reports: Shortness of Breath, Wheezing, Cough. Denies: Pleuritic Chest Pain, Sputum, Hemoptysis (Nonproductive) Cardiovascular: Reports: Chest Pain (Mild central chest discomfort with no radiation), Dyspnea on Exertion (Both lower extremities chronically. Worse lately. Worse lately.), Edema, Orthopnea. Denies: Blood Pressure Problem, Claudication, Palpitations Endocrine: Reports: Fatigue (He is not aware of palpitations in his chest.) GI/Abdominal: Reports: Constipation, Decreased Appetite : Reports: Frequency (Occasional problems with constipation), Other Musculoskeletal: Reports: Neck Pain ( neck at times), Shoulder Pain, Back Pain, Joint Pain (Nocturia x3 known BPH. Neck hips low back) Skin: Reports: Other (Currently has ecchymoses of his right great dorsal toe with no known injury. He has had multiple surgeries to both feet.) Neurological: Reports: Paresthesia (Severe peripheral neuropathy both lower extremities up to mid tib-fib bilaterally.), Difficulty Walking, Gait Disturbance Psychiatric: Reports: No Symptoms Hematologic/Lymphatic: Reports: Easy Bleeding, Easy Bruising Immunologic: Reports: No Symptoms ED EXAM, GENERAL - Physical Exam Exam: See Below Exam Limited By: Respiratory Distress (Short of breath. He can speak in 3-4 word sentences.) General Appearance: Alert, Moderate Distress, Other (Marked difficulty walking and with mobility. Could not get on the gurney on his own volition. Could barely get out of the wheelchair without 2 person aid. Heart rate is up to 190 /min revealing atrial fibrillation. O2 sats 91% on room air. Blood pressure initially read 137/115 which is inaccurat) Eye Exam: Bilateral Eye: Normal Inspection, PERRL (Very mild blepharal pallor. No scleral icterus.) Throat/Mouth: Normal Lips, Other (Tongue is mildly dry and coated.). No: Normal Teeth Head: Atraumatic, Normocephalic Neck: Limited Range of Motion, Tender Lateral. No: Full Range of Motion, Carotid Bruit, Lymphadenopathy (L), Lymphadenopathy (R) Respiratory/Chest: Respiratory Distress (Marked tachypnea 26/min to 28/min. O2 sats 91 to 92% room air. Improved to 96% on 2 L/min by nasal cannula), Decreased Breath Sounds (Breath sounds are diminished to both posterior lung mcleod by 25%.), Rales. No: Lungs Clear, Normal Breath Sounds, Rhonchi (Rales appreciated both lung mcleod.), Wheezing Cardiovascular: JVD (To 2 cm below the right angle of the mandible.), Tachycardia (Irregular irregular heartbeat but with atrial fibrillation. Heart rate up to 192/min.), Irregularly Irregular. No: Normal Peripheral Pulses, Regu lar Rate, Rhythm (No pulses are palpable below the femorals.) Peripheral Pulses: 0: Popliteal (L), Popliteal (R), Posterior Tibial (L), Posterior Tibial (R), Dorsalis Pedis (L), Dorsalis Pedis (R), 2+: Carotid (L), Carotid (R) GI/Abdominal: Normal Bowel Sounds, Soft, Non-Tender, No Organomegaly, No Mass, Pelvis Stable, Hernia ( Large left inguinal hernia large left inguinal hernia), Other (Mildly obese.) Back Exam: Normal Inspection, Decreased Range of Motion, Other (Increased lordotic curvature). No: CVA Tenderness (L), CVA Tenderness (R) Extremities: Pedal Edema, Other (4+ pitting edema both lower extremities. Multiple surgical scars both feet. It appears he has had surgical pinning of multiple metacarpals. He has ecchymosis of the dorsal aspect of the right great toe. He has severe peripheral neuropathy both feet up to mid tib-fib bilaterally.) Neurological: Alert, Oriented, CN II-XII Intact, Normal Cognition, Sensory/Motor Deficit (Peripheral neuropathy up to mid tib-fib bilaterally.). No: Normal Gait Psychiatric: Normal Affect, Normal Mood Skin Exam: Warm, Dry, Intact, Ecchymosis (Dorsal aspect of left right great toe. Appears to be a mild contusion likely aggravated by being on Xarelto. He has no recognition or realization of any injury to the area. There is no evidence of gangrene. Both feet are very cool to touch indicating peripheral vascular disease.) #1 Interpretation EKG Date: 12/25/20 Time: 10:03 Rhythm: A-Fib (With a rate of 140 to 205 bpm) Rate (Beats/Min): 186 [place]: Normal P-Wave: Absent QRS: Other (Decreased voltage limb leads. Near Q waves V1 to V2 suggesting old anteroseptal myocardial infarction) ST-T: Depressed (ST segment depression V3 to V6 compatible with ischemia. There is T wave flattening in aVL and slight ST segment depression appreciated in aVF as well) QT: Prolonged (Markedly prolonged) EKG Interpretation Comments: Abnormal ECG Course - Vital Signs Last Recorded V/S: Last Vital Signs Temp 36.3 C 12/25/20 09:47 Pulse 190 H 12/25/20 09:47 Resp 24 H 12/25/20 09:47 BP 148/111 H 12/25/20 09:47 Pulse Ox 92 L 12/25/20 10:26 - Orders/Labs/Meds Orders: Active Orders 24 hr Category Date Time Status EKG Documentation Completion [RC] STAT Care 12/25/20 09:56 Active Oxygen Therapy [RC] ASDIRECTED Care 12/25/20 09:57 Active Amiodarone In Dextrose,Iso-Osm [Nexterone in Dextrose Med 12/25/20 12:30 Active 360 MG/200 ML] 360 mg in 200 ml IV ASDIRECTED Sodium Chloride 0.9% [Normal Saline] 1,000 ml Med 12/25/20 10:00 Active IV ASDIRECTED Medication Orders Sodium Chloride (Normal Saline) 1,000 mls @ 75 mls/hr IV ASDIRECTED DIAMANTE Last Admin: 12/25/20 10:15 Dose: 75 mls/hr Documented by: EVGENY Amiodarone HCl/Dextrose (Nexterone In Dextrose 360 Mg/200 Ml) 360 mg in 200 mls @ 33.333 mls/hr IV ASDIRECTED DIAMANTE; Protocol Last Infusion: 12/25/20 13:24 Dose: 33.3 mls/hr Documented by: Infusion: 12/25/20 13:11 Dose: 0 mls/hr Documented by: Admin: 12/25/20 12:39 Dose: 33.333 mls/hr Documented by: EVGENY Labs: Laboratory Tests 12/25/20 12/25/20 12/25/20 Range/Units 10:05 10:05 10:05 WBC 10.62 H (4.23-9.07) K/mm3 RBC 4.76 (4.63-6.08) M/mm3 Hgb 13.8 (13.7-17.5) gm/dl Hct 42.1 (40.1-51.0) % MCV 88.4 (79.0-92.2) fl MCH 29.0 (25.7-32.2) pg MCHC 32.8 (32.2-35.5) g/dl RDW Std Deviation 48.2 H (35.1-43.9) fL Plt Count 245 (163-337) K/mm3 MPV 9.3 L (9.4-12.3) fl Neut % (Auto) 65.4 (34.0-67.9) % Lymph % (Auto) 24.1 (21.8-53.1) % [place] % (Auto) 8.1 (5.3-12.2) % Eos % (Auto) 0 L (0.8-7.0) Baso % (Auto) 0.4 (0.1-1.2) % Neut # (Auto) 6.95 H (1.78-5.38) K/mm3 Lymph # (Auto) 2.56 (1.32-3.57) K/mm3 [place] # (Auto) 0.86 H (0.30-0.82) K/mm3 Eos # (Auto) 0.00 L (0.04-0.54) K/mm3 Baso # (Auto) 0.04 (0.01-0.08) K/mm3 Manual Slide Review Normal smear PT 13.6 H (9.7-12.0) SECONDS INR 1.28 APTT 28.4 (21.7-31.4) SECONDS Sodium 141 (136-145) mEq/L Potassium 4.3 D (3.5-5.1) mEq/L Chloride 103 (98-107) mEq/L Carbon Dioxide 23 (21-32) mEq/L Anion Gap 19.3 H (5-15) BUN 11 (7-18) mg/dL Creatinine 1.0 (0.7-1.3) mg/dL Est Cr Clr Drug Dosing 75.05 mL/min Estimated GFR (MDRD) > 60 (>60) mL/min BUN/Creatinine Ratio 11.0 L (14-18) Glucose 180 H (70-99) mg/dL Calcium 7.7 L (8.5-10.1) mg/dL Magnesium 2.1 (1.8-2.4) mg/dL Total Bilirubin 0.7 (0.2-1.0) mg/dL AST 208 H (15-37) U/L ALT 164 H (16-63) U/L Alkaline Phosphatase 72 (46-116) U/L CK-MB (CK-2) 1.5 (0-3.6) ng/ml Troponin I 0.029 (0.00-0.056) ng/mL C-Reactive Protein <0.2 (<1.0) mg/dL NT-Pro-B Natriuret Pep (0-125) pg/mL Total Protein 7.5 (6.4-8.2) g/dl Albumin 3.3 L (3.4-5.0) g/dl Globulin 4.2 gm/dL Albumin/Globulin Ratio 0.8 L (1-2) Lipase (73-393) U/L Urine Color (Yellow) Urine Appearance (Clear) Urine pH (5.0-8.0) Ur Specific [place] (1.005-1.030) Urine Protein (Negative) Urine Glucose (UA) (Negative) Urine Ketones (Negative) Urine Occult Blood (Negative) Urine Nitrite (Negative) Urine Bilirubin (Negative) Urine Urobilinogen (0.2-1.0) Ur Leukocyte Esterase (Negative) Urine RBC (0-5) /hpf Urine WBC (0-5) /hpf Ur Epithelial Cells (0-5) /hpf Urine Bacteria (FEW) /hpf Urine Mucus (FEW) /hpf Ethyl Alcohol 0.44 (0.00) gm% SARS-CoV-2 RNA (ISABELLA) (NEGATIVE) 12/25/20 12/25/20 12/25/20 Range/Units 10:05 10:05 10:35 WBC (4.23-9.07) K/mm3 RBC (4.63-6.08) M/mm3 Hgb (13.7-17.5) gm/dl Hct (40.1-51.0) % MCV (79.0-92.2) fl MCH (25.7-32.2) pg MCHC (32.2-35.5) g/dl RDW Std Deviation (35.1-43.9) fL Plt Count (163-337) K/mm3 MPV (9.4-12.3) fl Neut % (Auto) (34.0-67.9) % Lymph % (Auto) (21.8-53.1) % [place] % (Auto) (5.3-12.2) % Eos % (Auto) (0.8-7.0) Baso % (Auto) (0.1-1.2) % Neut # (Auto) (1.78-5.38) K/mm3 Lymph # (Auto) (1.32-3.57) K/mm3 [place] # (Auto) (0.30-0.82) K/mm3 Eos # (Auto) (0.04-0.54) K/mm3 Baso # (Auto) (0.01-0.08) K/mm3 Manual Slide Review PT (9.7-12.0) SECONDS INR APTT (21.7-31.4) SECONDS Sodium (136-145) mEq/L Potassium (3.5-5.1) mEq/L Chloride (98-107) mEq/L Carbon Dioxide (21-32) mEq/L Anion Gap (5-15) BUN (7-18) mg/dL Creatinine (0.7-1.3) mg/dL Est Cr Clr Drug Dosing mL/min Estimated GFR (MDRD) (>60) mL/min BUN/Creatinine Ratio (14-18) Glucose (70-99) mg/dL Calcium (8.5-10.1) mg/dL Magnesium (1.8-2.4) mg/dL Total Bilirubin (0.2-1.0) mg/dL AST (15-37) U/L ALT (16-63) U/L Alkaline Phosphatase (46-116) U/L CK-MB (CK-2) (0-3.6) ng/ml Troponin I (0.00-0.056) ng/mL C-Reactive Protein (<1.0) mg/dL NT-Pro-B Natriuret Pep 435 H (0-125) pg/mL Total Protein (6.4-8.2) g/dl Albumin (3.4-5.0) g/dl Globulin gm/dL Albumin/Globulin Ratio (1-2) Lipase 528 H (73-393) U/L Urine Color Light yellow (Yellow) Urine Appearance Clear (Clear) Urine pH 6.0 (5.0-8.0) Ur Specific [place] 1.020 (1.005-1.030) Urine Protein Negative (Negative) Urine Glucose (UA) Negative (Negative) Urine Ketones Negative (Negative) Urine Occult Blood Negative (Negative) Urine Nitrite Negative (Negative) Urine Bilirubin Negative (Negative) Urine Urobilinogen 0.2 (0.2-1.0) Ur Leukocyte Esterase Negative (Negative) Urine RBC 0-5 (0-5) /hpf Urine WBC Not seen (0-5) /hpf Ur Epithelial Cells Not seen (0-5) /hpf Urine Bacteria Not seen (FEW) /hpf Urine Mucus Rare (FEW) /hpf Ethyl Alcohol (0.00) gm% SARS-CoV-2 RNA (ISABELLA) (NEGATIVE) 12/25/20 Range/Units 14:25 WBC (4.23-9.07) K/mm3 RBC (4.63-6.08) M/mm3 Hgb (13.7-17.5) gm/dl Hct (40.1-51.0) % MCV (79.0-92.2) fl MCH (25.7-32.2) pg MCHC (32.2-35.5) g/dl RDW Std Deviation (35.1-43.9) fL Plt Count (163-337) K/mm3 MPV (9.4-12.3) fl Neut % (Auto) (34.0-67.9) % Lymph % (Auto) (21.8-53.1) % [place] % (Auto) (5.3-12.2) % Eos % (Auto) (0.8-7.0) Baso % (Auto) (0.1-1.2) % Neut # (Auto) (1.78-5.38) K/mm3 Lymph # (Auto) (1.32-3.57) K/mm3 [place] # (Auto) (0.30-0.82) K/mm3 Eos # (Auto) (0.04-0.54) K/mm3 Baso # (Auto) (0.01-0.08) K/mm3 Manual Slide Review PT (9.7-12.0) SECONDS INR APTT (21.7-31.4) SECONDS Sodium (136-145) mEq/L Potassium (3.5-5.1) mEq/L Chloride (98-107) mEq/L Carbon Dioxide (21-32) mEq/L Anion Gap (5-15) BUN (7-18) mg/dL Creatinine (0.7-1.3) mg/dL Est Cr Clr Drug Dosing mL/min Estimated GFR (MDRD) (>60) mL/min BUN/Creatinine Ratio (14-18) Glucose (70-99) mg/dL Calcium (8.5-10.1) mg/dL Magnesium (1.8-2.4) mg/dL Total Bilirubin (0.2-1.0) mg/dL AST (15-37) U/L ALT (16-63) U/L Alkaline Phosphatase (46-116) U/L CK-MB (CK-2) (0-3.6) ng/ml Troponin I (0.00-0.056) ng/mL C-Reactive Protein (<1.0) mg/dL NT-Pro-B Natriuret Pep (0-125) pg/mL Total Protein (6.4-8.2) g/dl Albumin (3.4-5.0) g/dl Globulin gm/dL Albumin/Globulin Ratio (1-2) Lipase (73-393) U/L Urine Color (Yellow) Urine Appearance (Clear) Urine pH (5.0-8.0) Ur Specific [place] (1.005-1.030) Urine Protein (Negative) Urine Glucose (UA) (Negative) Urine Ketones (Negative) Urine Occult Blood (Negative) Urine Nitrite (Negative) Urine Bilirubin (Negative) Urine Urobilinogen (0.2-1.0) Ur Leukocyte Esterase (Negative) Urine RBC (0-5) /hpf Urine WBC (0-5) /hpf Ur Epithelial Cells (0-5) /hpf Urine Bacteria (FEW) /hpf Urine Mucus (FEW) /hpf Ethyl Alcohol (0.00) gm% SARS-CoV-2 RNA (ISABELLA) Negative (NEGATIVE) Meds: Medications Generic Name Dose Route Start Last Admin Trade Name Freq PRN Reason Stop Dose Admin Sodium Chloride 1,000 mls @ 75 mls/hr 12/25/20 10:00 12/25/20 10:15 Normal Saline IV 75 mls/hr ASDIRECTED DIAMANTE Administration Amiodarone HCl/Dextrose 360 mg in 200 mls @ 33.333 mls/hr 12/25/20 12:30 12/25/20 13:24 Nexterone In Dextrose 360 Mg/200 Ml IV 33.3 mls/hr ASDIRECTED DIAMANTE Infusion Protocol Discontinued Medications Generic Name Dose Route Start Last Admin Trade Name Freq PRN Reason Stop Dose Admin Diltiazem HCl 10 mg 12/25/20 09:55 12/25/20 10:15 Diltiazem 50 Mg/10 Ml Sdv IVPUSH 12/25/20 09:56 10 mg ONETIME ONE Administration Diltiazem HCl 15 mg 12/25/20 10:33 12/25/20 10:41 Diltiazem 50 Mg/10 Ml Sdv IVPUSH 12/25/20 10:34 15 mg ONETIME ONE Administration Diltiazem HCl 15 mg 12/25/20 11:13 12/25/20 11:32 Diltiazem 50 Mg/10 Ml Sdv IVPUSH 12/25/20 11:14 15 mg ONETIME ONE Administration Diltiazem HCl 20 mg 12/25/20 11:39 12/25/20 11:54 Diltiazem 50 Mg/10 Ml Sdv IVPUSH 12/25/20 11:40 20 mg ONETIME ONE Administration Furosemide 40 mg 12/25/20 09:57 12/25/20 10:15 Furosemide 40 Mg/4 Ml Vial IVPUSH 12/25/20 09:58 40 mg NOW ONE Administration Diltiazem HCl 100 mg/ Sodium 100 mls @ 15 mls/hr 12/25/20 10:00 12/25/20 10:15 Chloride IV 15 mg/hr ASDIRECTED DIAMANTE 15 mls/hr Administration 15 MG/HR Amiodarone HCl/Dextrose 100 mls @ 600 mls/hr 12/25/20 12:11 12/25/20 12:26 Nexterone In Dextrose 150 Mg/100 Ml IV 12/25/20 12:20 600 mls/hr .BOLUS ONE Administration Protocol Amiodarone HCl/Dextrose 100 mls @ 600 mls/hr 12/25/20 13:01 12/25/20 13:10 Nexterone In Dextrose 150 Mg/100 Ml IV 12/25/20 13:10 600 mls/hr .BOLUS ONE Administration Protocol Lorazepam 1 mg 12/25/20 14:43 12/25/20 15:06 Lorazepam 2 Mg/Ml Sdv IVPUSH 12/25/20 14:44 1 mg ONETIME ONE Administration - Radiology Interpretation Free Text/Narrative:: 60-year-old male who is known to drink alcohol on a daily basis usually at least 11 shots of hard alcohol in the beer per day. He had 2 shots before coming to the ED and has smell of alcohol on his breath. His chief complaint was ecchymoses and turning black of his right great toe. He was concerned that he was going to lose his foot due to gangrene. Examination revealed he was markedly short of breath and dyspneic on minimal exam and requiring 2 person assist even to get out of the wheelchair and could not get on the gurney on his own volition. On quick examination it was confirmed he was in atrial fibri llation with rapid ventricular rate greater than 200 bpm at times. Associated mild midsternal chest discomfort and dyspnea. He has 4+ pitting edema both lower extremities. He has chronic peripheral neuropathy both lower extremities up to mid tib-fib. He has a history of atrial fibrillation and is supposed to be on Cardizem to 40 mg CD daily. He is on Xarelto 20 mg daily. Plan diltiazem 10 mg IV bolus and then start drip at 15 mg/h. Will titrate to get his rate under control. Lasix 40 mg given IV bolus. He will be on a small dose of normal saline at 75 mils an hour. Routine labs ordered including serum magnesium and blood alcohol level. His O2 sats are 91 to 92% on room air. Placed on 2 L/min by nasal cannula to achieve O2 sats of 95 to 96%. Chest x-ray will be done as well as an x-ray of his right foot. - Re-Assessments/Exams Free Text/Narrative Re-Assessment/Exam: 12/25/20 10:34 heart rate remains 187. He has had Cardizem given IV bolus approximately 12 minutes ago. We will give him 50 mg IV bolus at this time. BP is 130/101.Initial hematology reveals a white count mildly elevated at 10.62. Differential 65% neutrophils. Hemoglobin 13.8 with hematocrit of 42.1. Platelet count 245,000 PT is 13.6 mildly elevated. INR is mildly elevated at 1.28. PTT is normal at 28.4. Chest x-ray is not yet available 12/25/20 10:41 chest x-ray reveals mild cardiomegaly. Thoracic aorta ectasia. There is a medium left-sided pleural effusion the right costophrenic angle is clear. The lungs are mildly hyperinflated. No significant vascular congestion appreciated in the upper lobes of the lungs. Foot x-ray on the right side reveals multiple hardware in the great toe as well as the second toe and plate and screws in the distal fibula. There are no fractures in the great toe. 12/25/20 10:49 Sodium is 141. Potassium is 4.3. Chloride 103 with a bicarb of 23. Anion gap is elevated at 19.3. BUN is 11 with a creatinine of 1.0 and a GFR greater than 60. Glucose is elevated at 180. Calcium is 7.7 low. Magnesium is 2.1. Bilirubin 0.7. AST elevated at 208 and ALT elevated at 164 felt to be secondary due to chronic alcohol use. Alkaline phosphatase is normal at 72. CK-MB fraction is 1.5 with a troponin I of 0.029. C-reactive protein is less than 0.2. BNP mildly elevated at 435. Total protein is 7.5 with an albu min fraction low at 3.3. Blood alcohol is currently 0.44 g% 12/25/20 11:13 heart rate is still anywhere from 157 to 180/min. Blood pressure is 121/96. Will repeat Dilaudid 15 mg IV. Failing control of his rate will have to switch to amiodarone.Lipase is mildly elevated at 528. Urinalysis is normal 12/25/20 11:38 heart rate is mildly improved staying around 150/min. We will repeat Cardizem 20 mg IV bolus at this time. 12/25/20 12:13 the lowest heart rate we could get was 133/min which was not sustained. heart rate remains around 150 after the last dose of Cardizem 20 mg IV bolus. His blood pressure is maintained at 119/95. I am going to switch to amiodarone starting with 150 mg over 10 minutes and then starting the drip at 60 mg/h. 12/25/20 13:02 heart rate dipped down as low as 130/min after the 150 mg bolus of amiodarone. It is back up to as high as 180 at times now. I am going to repeat the 150 mg amiodarone IV bolus and then start the drip at 60 mg an hour for rate control. 12/25/20 14:13 heart rate remains uncontrolled. He remains in atrial fibrillation in the 160s. Blood pressure is 94/66 and not coming under control with IV amiodarone. O2 sats are 97% on 2 L. I discussed the case with our hospitalist and he feels the patient requires cardiology evaluation and management in [place]. Patient prefers to go to [facility] in [place] and I will try and make arrangements in this regard. COVID-19 screen is negative. Portable chest x-ray and x-rays of the right foot have been sent to [facility] by [facility] 12/25/20 15:04 I have spoken with Dr. Garcia--commercial housekeeper at [facility] in [place] and he suggested the patient be transferred to their facility for management of uncontrolled atrial fibrillation. Subsequently I spoke to hospitalist Dr. Bojorquez whom has accepted care of this patient. Patient will be transferred to their facility per ground ambulance. He is most unhappy to be going to [place]. I suspect his alcoholism is a barrier to leaving home. He is restless at this time and will be given Ativan 1 mg IV. His heart rate remains in the 166 range with BP 140/107 at this time with sats of 96% on 2 L. We will remain on Rajni in infusion at 60 mg/h en route to [place]. Departure - Departure Time of Disposition: 15:35 Disposition: DC/Tfer to Acute Hospital 02 Reason for Transfer *Q: Other Condition: Fair Clinical Impression: Chronic atrial fibrillation with RVR, Alcoholism, Alcoholic hepatitis without ascites COPD (chronic obstructive pulmonary disease) Qualifiers: COPD type: unspecified COPD Qualified Code(s): J44.9 - Chronic obstructive pulmonary disease, unspecified Type 2 diabetes mellitus Qualifiers: Diabetes mellitus assisted insulin use: without assisted use Diabetes mellitus complication status: with neurologic complications Peripheral neuropathy Qualifiers: Peripheral neuropathy type: polyneuropathy, other Qualified Code(s): G62.89 - Other specified polyneuropathies Pancreatitis Qualifiers: Chronicity: acute Pancreatitis type: alcohol induced CHF (congestive heart failure) Qualifiers: Heart failure type: unspecified Heart failure chronicity: acute on chronic Qualified Code(s): I50.9 - Heart failure, unspecified Referrals: Geneva Gutiérrez MD [Primary Care Provider] - Forms: ED Department Discharge Additional Instructions: Patient will be transferred to [facility] in [place] due to inability to bring his atrial fibrillation under control in our emergency department. He came in with a rapid ventricular response of 180/min. He has chronic atrial fibrillation. Compliance with medication is up in the air due to being an alcoholic. He had multiple doses of diltiazem given intravenously as well as diltiazem drip at 15 mg/h with failure to control his rate. This procedure was then abandoned and utilized amiodarone 150 mg IV bolus x2 and amiodarone infusion at 60 mg/h which is also failed to bring his rate under control. Heart rate is still in the 160s to 170s. Sepsis Event Note (ED) - Focused Exam Vital Signs: Vital Signs Temp Pulse Resp BP Pulse Ox Pulse Ox 12/25/20 10:26 92 L 12/25/20 09:47 36.3 C 190 H 24 H 148/111 H 95 - My Orders Last 24 Hours: My Active Orders 12/25/20 09:56 EKG Documentation Completion [RC] STAT 12/25/20 09:57 Oxygen Therapy [RC] ASDIRECTED 12/25/20 10:00 Sodium Chloride 0.9% [Normal Saline] 1,000 ml IV ASDIRECTED 12/25/20 12:30 Amiodarone In Dextrose,Iso-Osm [Nexterone in Dextrose 360 MG/200 ML] 360 mg in 200 ml IV ASDIRECTED - Assessment/Plan Last 24 Hours: My Active Orders 12/25/20 09:56 EKG Documentation Completion [RC] STAT 12/25/20 09:57 Oxygen Therapy [RC] ASDIRECTED 12/25/20 10:00 Sodium Chloride 0.9% [Normal Saline] 1,000 ml IV ASDIRECTED 12/25/20 12:30 Amiodarone In Dextrose,Iso-Osm [Nexterone in Dextrose 360 MG/200 ML] 360 mg in 200 ml IV ASDIRECTED
--- NOTE | 2020-12-25 11:45 | CR ---
Chest: Portable view of the chest was obtained. Comparison: Prior chest x-ray of 08/01/19. Elevated left hemidiaphragm is seen which appears stable from prior chest x-ray. Lungs otherwise are clear with no acute parenchymal change. Heart size and mediastinum are within normal limits for portable technique. No acute osseous abnormality is appreciated. Impression: 1. Elevated left hemidiaphragm which is stable from prior chest x-ray. 2. Nothing acute is otherwise seen on portable chest x-ray. Diagnostic code #2
--- NOTE | 2020-12-25 11:52 | CR ---
Right foot: 4 views of the right foot were obtained. Comparison: No prior foot exam is available. Plantar spur is noted. Prior surgery is noted within the first metatarsal with orthopedic screws and prior osteotomy. Four screws are noted within the distal second metatarsal. Fixation screw is noted within the second toe phalanx. Bony structures are somewhat osteopenic. Soft tissue swelling is noted. Prior ankle surgery is noted. Vascular calcification is seen. No acute fracture or dislocation is seen. No focal erosions are seen. Impression: 1. Prior surgery as noted above. 2. Plantar spur. 3. Soft tissue swelling. 4. No osseous abnormality is appreciated. Diagnostic code #2
[2020-12-25] MEDS ORDERED: LORazepam 2 MG/ML SDV IVPUSH ONE (14:43)
== END 2020-12-25 16:05 ==
LOC: JD.ED 09:33
DX: K85.20 Alcohol induced acute pancreatitis without necrosis or infection (principal); E11.42 Type 2 diabetes mellitus with diabetic polyneuropathy; J44.9 Chronic obstructive pulmonary disease, unspecified; I48.20 Chronic atrial fibrillation, unspecified; F10.20 Alcohol dependence, uncomplicated; K70.11 Alcoholic hepatitis with ascites; I11.0 Hypertensive heart disease with heart failure; I50.9 Heart failure, unspecified; E78.00 Pure hypercholesterolemia, unspecified; E66.9 Obesity, unspecified; Z68.39 Body mass index [BMI] 39.0-39.9, adult; Z20.822 Contact with and (suspected) exposure to COVID-19; Z79.01 Long term (current) use of anticoagulants; Z79.84 Long term (current) use of oral hypoglycemic drugs; Z79.899 Other long term (current) drug therapy; Y90.8 Blood alcohol level of 240 mg/100 ml or more
CPT/HCPCS: 36415; 71045; 73630; 80053; 80307; 81001; 82553; 83690; 83735; 83880; 84484; 85025; 85610; 85730; 86140; 87635; 93005; 96365; 96366; 96367; 96375; 96376; 99285; J0282; J1940; J2060; J3490; J7030; 93010; U0002

== ENCOUNTER 2021-01-30 09:27 | Inpatient (IN) | payer OTHER, MEDICAID ==
[2021-01-30] MEDS ORDERED: Sodium Chloride 0.9% 10 ML Syringe FLUSH PRN (09:59)
[2021-01-30] MEDS ORDERED: Diltiazem 50 MG/10 ML SDV IVPUSH ONE (10:00)
[2021-01-30] MEDS ORDERED: HYDROmorphone 1 MG/ML Syringe IVPUSH ONE (10:00)
[2021-01-30] MEDS ORDERED: Sodium Chloride 0.9% 1,000 ML IV SCH (10:00)
[2021-01-30] MEDS: Diltiazem 100 MG in Sodium Chloride 0.9% 100 ML IV SCH (10:20)
[2021-01-30] MEDS ORDERED: Sodium Chloride 0.9% 1,000 ML IV ONE (11:00)
[2021-01-30] MEDS ORDERED: HYDROmorphone 0.5 MG/0.5 ML Syringe IVPUSH ONE (12:00)
--- NOTE | 2021-01-30 12:29 | EDM.PDOC ---
ED HPI GENERAL MEDICAL PROBLEM - General Chief Complaint: Lower Extremity Injury/Pain Stated Complaint: R LEG PAIN Time Seen by Provider: 01/30/21 09:51 Source of Information: Reports: Patient History Limitations: Reports: No Limitations - History of Present Illness INITIAL COMMENTS - FREE TEXT/NARRATIVE: The patient presents with right leg pain and swelling. He also has a rapid heart rate. His has a history of A-fib. He is on xarelto. He is worried he may have a blood clot in his leg. He has some ecchymosis to the front of his right lower leg. He has no chest pain or shortness of breath. He was seen here back in late November and had A-fib with RVR and needed to be admitted. He does have a history of alcohol abuse. He has no fever, chills, cough, abdominal pain, na usea or vomiting. Onset: Gradual Duration: Day(s): Location: Reports: Lower Extremity, Right (ecchymosis, pain and edema) Quality: Reports: Sharp Severity: Moderate Improves with: Reports: None Worsens with: Reports: None Associated Symptoms: Reports: No Other Symptoms Right Leg Pain Score (Numeric/FACES): 10 - Related Data Allergies Allergy/AdvReac Type Severity Reaction Status Date / Time No Known Allergies Allergy Verified 01/30/21 09:49 Home Meds: Home Meds Omeprazole 20 mg PO DAILY 07/07/16 [History] Folic Acid 1 mg PO DAILY 09/26/17 [History] Metoprolol Tartrate 75 mg PO BID 09/26/17 [History] Thiamine [Vitamin B-1] 200 mg PO DAILY 09/26/17 [History] Cholecalciferol (Vitamin D3) [Vitamin D] 5,000 unit PO DAILY 01/09/19 [History] Diltiazem [Dilacor XR] 240 mg PO DAILY 01/09/19 [History] Magnesium Oxide 420 mg PO BID 01/09/19 [History] Multivitamin [Multivitamins] 1 each PO DAILY 01/09/19 [History] Rivaroxaban [Xarelto] 20 mg PO DAILY 01/09/19 [History] atorvaSTATin [Lipitor] 40 mg PO BEDTIME 01/09/19 [History] metFORMIN HCl [Metformin HCl] 500 mg PO BID 07/25/19 [History] Gabapentin [Neurontin] 600 mg PO BEDTIME #30 tab 11/20/20 [Rx] Past Medical History - Past Health History Medical/Surgical History: Denies Medical/Surgical History HEENT History: Reports: Cataract Cardiovascular History: Reports: Afib, High Cholesterol, Hypertension Other Cardiovascular History: hx/o a-fib/RVR Respiratory History: Reports: COPD Other Respiratory History: 07/24/16 admitted with pneumonia Gastrointestinal History: Reports: GERD Genitourinary History: Reports: Renal Calculus Musculoskeletal History: Reports: Fracture Other Musculoskeletal History: rigth foot fracture 20 yrs ago; Fx of L wrist 2018 Neurological History: Reports: Other (See Below) Other Neuro History: seizures with ETOH withdrawal Psychiatric History: Reports: Addiction Other Psychiatric History: alcohol Endocrine/Metabolic History: Reports: Diabetes, Type II, Obesity/BMI 30+ Hematologic History: Reports: Anticoagulation Therapy Other Immunologic History: pt states that a doctor told him he had hep c once but his last check was ok Oncologic (Cancer) History: Reports: None Dermatologic History: Reports: None - Infectious Disease History Infectious Disease History: Reports: Hepatitis C, MRSA Other Infectious Disease History: Hep C per Demond Ponce hospitalist/[place], 06/2016. - Past Surgical History Musculoskeletal Surgical History: Reports: ORIF, Other (See Below) Other Musculoskeletal Surgeries/Procedures:: right toe -hammer toe surgery, left wrist surgery; BUNIONECTOMY Social & Family History - Family History Family Medical History: No Pertinent Family History Neurological: Reports: CVA Endocrine/Metabolic: Reports: Diabetes, type II Hematologic: Reports: Other (See Below) Other Hematologic Family History: hepatitias c Immunologic: Reports: None Oncologic: Reports: Leukemia - Tobacco Use Tobacco Use Status *Q: Never Tobacco User - Caffeine Use Caffeine Use: Reports: Tea - Recreational Drug Use Recreational Drug Use: No - Living Situation & Occupation Living situation: Reports: , Alone Occupation: Unemployed Review of Systems - Review of Systems Review Of Systems: See Below Constitutional: Reports: No Symptoms Eyes: Reports: No Symptoms Ears: Reports: No Symptoms Nose: Reports: No Symptoms Mouth/Throat: Reports: No Symptoms Respiratory: Reports: No Symptoms Cardiovascular: Reports: No Symptoms GI/Abdominal: Reports: No Symptoms Genitourinary: Reports: No Symptoms Musculoskeletal: Reports: Other (right leg pain and edema) ED EXAM, GENERAL - Physical Exam Exam: See Below Exam Limited By: No Limitations General Appearance: Alert, No Apparent Distress Ears: Normal External Exam Nose: Normal Inspection Head: Atraumatic, Normocephalic Neck: Normal Inspection Respiratory/Chest: No Respiratory Distress, Lungs Clear, Normal Breath Sounds Cardiovascular: Regular Rate, Rhythm, No Edema, No Murmur GI/Abdominal: Soft, Non-Tender, No Organomegaly, No Mass Extremities: Other (area of ecchymosis to the anterior right lower leg. Mild edema. Good sensation and pulses distally.) #1 Interpretation EKG Date: 01/30/21 Time: 09:55 Rhythm: A-Fib Rate (Beats/Min): 151 Draper: Normal QRS: Normal ST-T: Normal QT: Normal Course - Vital Signs Last Recorded V/S: Last Vital Signs Temp 97.6 F 01/30/21 09:45 Pulse 153 H 01/30/21 09:45 Resp 20 01/30/21 09:45 BP 140/110 H 01/30/21 09:45 Pulse Ox 96 01/30/21 09:45 - Orders/Labs/Meds Orders: Active Orders 24 hr Category Date Time Status Cardiac Monitoring [RC] . DIRECTED Care 01/30/21 09:59 Active EKG 12 Lead [EKG Documentation Completion] [RC] ROUTINE Care 01/30/21 09:55 Active Peripheral IV Care [RC] . DIRECTED Care 01/30/21 10:00 Active VL Duplex Lwr Ext Veins Ltd Rt [US] Stat Exams 01/30/21 10:00 Taken Diltiazem [Cardizem] 100 mg Med 01/30/21 10:15 Active Sodium Chloride 0.9% [Normal Saline] 100 ml IV TITRATE Sodium Chloride 0.9% [Normal Saline] 1,000 ml Med 01/30/21 10:00 Active IV ASDIRECTED Sodium Chloride 0.9% [Saline Flush] Med 01/30/21 09:59 Active 10 ml FLUSH ASDIRECTED PRN Peripheral IV Insertion Adult [OM.PC] Stat Oth 01/30/21 09:59 Ordered Medication Orders Diltiazem HCl 100 mg/ Sodium (Chloride) 100 mls @ 10 mls/hr IV TITRATE DIAMANTE; P rotocol Last Titration: 01/30/21 12:08 Dose: 15 mg/hr, 15 mls/hr Documented by: Admin: 01/30/21 10:20 Dose: 10 mg/hr, 10 mls/hr Documented by: EVGENY Sodium Chloride (Normal Saline) 1,000 mls @ 125 mls/hr IV ASDIRECTED DIAMANTE Last Infusion: 01/30/21 12:08 Dose: 125 mls/hr Documented by: Infusion: 01/30/21 11:00 Dose: 0 mls/hr Documented by: Admin: 01/30/21 10:20 Dose: 125 mls/hr Documented by: EVGENY Sodium Chloride (Sodium Chloride 0.9% 10 Ml Syringe) 10 ml FLUSH ASDIRECTED PRN PRN Reason: Keep Vein Open Last Admin: 01/30/21 10:32 Dose: 10 ml Documented by: EVGENY Labs: Laboratory Tests 01/30/21 01/30/21 01/30/21 Range/Units 10:45 10:55 10:55 WBC 10.87 H (4.23-9.07) K/mm3 RBC 4.61 L (4.63-6.08) M/mm3 Hgb 13.6 L (13.7-17.5) gm/dl Hct 40.8 (40.1-51.0) % MCV 88.5 (79.0-92.2) fl MCH 29.5 (25.7-32.2) pg MCHC 33.3 (32.2-35.5) g/dl RDW Std Deviation 48.8 H (35.1-43.9) fL Plt Count 192 (163-337) K/mm3 MPV 8.6 L (9.4-12.3) fl Neut % (Auto) 77.0 H (34.0-67.9) % Lymph % (Auto) 10.9 L (21.8-53.1) % Pine % (Auto) 9.7 (5.3-12.2) % Eos % (Auto) 1.5 (0.8-7.0) Baso % (Auto) 0.3 (0.1-1.2) % Neut # (Auto) 8.37 H (1.78-5.38) K/mm3 Lymph # (Auto) 1.19 L (1.32-3.57) K/mm3 Pine # (Auto) 1.05 H (0.30-0.82) K/mm3 Eos # (Auto) 0.16 (0.04-0.54) K/mm3 Baso # (Auto) 0.03 (0.01-0.08) K/mm3 Sodium 136 (136-145) mEq/L Potassium 3.9 (3.5-5.1) mEq/L Chloride 98 (98-107) mEq/L Carbon Dioxide 28 (21-32) mEq/L Anion Gap 13.9 (5-15) BUN 12 (7-18) mg/dL Creatinine 1.3 (0.7-1.3) mg/dL Est Cr Clr Drug Dosing 57.73 mL/min Estimated GFR (MDRD) 56 (>60) mL/min BUN/Creatinine Ratio 9.2 L (14-18) Glucose 121 H (70-99) mg/dL Calcium 8.4 L (8.5-10.1) mg/dL Magnesium 1.4 L (1.8-2.4) mg/dL Total Bilirubin 0.8 (0.2-1.0) mg/dL AST 38 H (15-37) U/L ALT 45 (16-63) U/L Alkaline Phosphatase 66 (46-116) U/L Troponin I < 0.017 (0.00-0.056) ng/mL Total Protein 6.8 (6.4-8.2) g/dl Albumin 3.2 L (3.4-5.0) g/dl Globulin 3.6 gm/dL Albumin/Globulin Ratio 0.9 L (1-2) Ethyl Alcohol (0.00) gm% SARS-CoV-2 RNA (ISABELLA) Negative (NEGATIVE) 01/30/21 Range/Units 10:55 WBC (4.23-9.07) K/mm3 RBC (4.63-6.08) M/mm3 Hgb (13.7-17.5) gm/dl Hct (40.1-51.0) % MCV (79.0-92.2) fl MCH (25.7-32.2) pg MCHC (32.2-35.5) g/dl RDW Std Deviation (35.1-43.9) fL Plt Count (163-337) K/mm3 MPV (9.4-12.3) fl Neut % (Auto) (34.0-67.9) % Lymph % (Auto) (21.8-53.1) % Pine % (Auto) (5.3-12.2) % Eos % (Auto) (0.8-7.0) Baso % (Auto) (0.1-1.2) % Neut # (Auto) (1.78-5.38) K/mm3 Lymph # (Auto) (1.32-3.57) K/mm3 Pine # (Auto) (0.30-0.82) K/mm3 Eos # (Auto) (0.04-0.54) K/mm3 Baso # (Auto) (0.01-0.08) K/mm3 Sodium (136-145) mEq/L Potassium (3.5-5.1) mEq/L Chloride (98-107) mEq/L Carbon Dioxide (21-32) mEq/L Anion Gap (5-15) BUN (7-18) mg/dL Creatinine (0.7-1.3) mg/dL Est Cr Clr Drug Dosing mL/min Estimated GFR (MDRD) (>60) mL/min BUN/Creatinine Ratio (14-18) Glucose (70-99) mg/dL Calcium (8.5-10.1) mg/dL Magnesium (1.8-2.4) mg/dL Total Bilirubin (0.2-1.0) mg/dL AST (15-37) U/L ALT (16-63) U/L Alkaline Phosphatase (46-116) U/L Troponin I (0.00-0.056) ng/mL Total Protein (6.4-8.2) g/dl Albumin (3.4-5.0) g/dl Globulin gm/dL Albumin/Globulin Ratio (1-2) Ethyl Alcohol 0.00 (0.00) gm% SARS-CoV-2 RNA (ISABELLA) (NEGATIVE) Meds: Medications Generic Name Dose Route Start Last Admin Trade Name Freq PRN Reason Stop Dose Admin Diltiazem HCl 100 mg/ Sodium 100 mls @ 10 mls/hr 01/30/21 10:15 01/30/21 12:08 Chloride IV 15 mg/hr TITRATE DIAMANTE 15 mls/hr Titration Protocol 10 MG/HR Sodium Chloride 1,000 mls @ 125 mls/hr 01/30/21 10:00 01/30/21 12:08 Normal Saline IV 125 mls/hr ASDIRECTED DIAMANTE Infusion Sodium Chloride 10 ml 01/30/21 09:59 01/30/21 10:32 Sodium Chloride 0.9% 10 Ml Syringe FLUSH 10 ml ASDIRECTED PRN Administration Keep Vein Open Discontinued Medications Generic Name Dose Route Start Last Admin Trade Name Meredith PRN Reason Stop Dose Admin Diltiazem HCl 10 mg 01/30/21 10:00 01/30/21 10:07 Diltiazem 50 Mg/10 Ml Sdv IVPUSH 01/30/21 10:01 10 mg ONETIME ONE Administration Hydromorphone HCl 1 mg 01/30/21 10:00 01/30/21 10:07 Hydromorphone 1 Mg/Ml Syringe IVPUSH 01/30/21 10:01 1 mg ONETIME ONE Administration Hydromorphone HCl 0.5 mg 01/30/21 12:00 01/30/21 12:07 Hydromorphone 0.5 Mg/0.5 Ml Syringe IVPUSH 01/30/21 12:01 0.5 mg ONETIME ONE Administration Sodium Chloride 1,000 mls @ 999 mls/hr 01/30/21 11:00 01/30/21 11:00 Normal Saline IV 01/30/21 12:00 999 mls/hr ONETIME ONE Administration - Re-Assessments/Exams Free Text/Narrative Re-Assessment/Exam: 01/30/21 12:35 I ordered an IV NS 1L bolus, dilaudid 1mg IV, EKG, US of his right leg, labs, cardizem 10mg IV bolus and a drip at 10mg/hr. His WBC is elevated at 10.87. His glucose is elevated at 121. His magnesium is low at 1.4. His troponin is negative. His ETOH is 0. He is COVID negative. 01/30/21 12:40 He slowed down some to in the 120s. I feel he needs to be admitted. I called Dr Ellington and he agreed to the admission. Departure - Departure Time of Disposition: 12:45 Disposition: Admitted As Inpatient 65 Condition: Fair Clinical Impression: Chronic atrial fibrillation with RVR, Right leg pain - Discharge Information Referrals: Geneva Gutiérrez MD [Primary Care Provider] - Forms: ED Department Discharge Sepsis Event Note (ED) - Evaluation Sepsis Screening Result: No Definite Risk - Focused Exam Vital Signs: Vital Signs Temp Pulse Resp BP Pulse Ox 01/30/21 09:45 97.6 F 153 H 20 140/110 H 96 - My Orders Last 24 Hours: My Active Orders 01/30/21 09:55 EKG 12 Lead [EKG Documentation Completion] [RC] ROUTINE 01/30/21 09:59 Cardiac Monitoring [RC] . DIRECTED Sodium Chloride 0.9% [Saline Flush] 10 ml FLUSH ASDIRECTED PRN Peripheral IV Insertion Adult [OM.PC] Stat 01/30/21 10:00 Peripheral IV Care [RC] . DIRECTED VL Duplex Lwr Ext Veins Ltd Rt [US] Stat Sodium Chloride 0.9% [Normal Saline] 1,000 ml IV ASDIRECTED 01/30/21 10:15 Diltiazem [Cardizem] 100 mg Sodium Chloride 0.9% [Normal Saline] 100 ml IV TITRATE - Assessment/Plan Last 24 Hours: My Active Orders 01/30/21 09:55 EKG 12 Lead [EKG Documentation Completion] [RC] ROUTINE 01/30/21 09:59 Cardiac Monitoring [RC] . DIRECTED Sodium Chloride 0.9% [Saline Flush] 10 ml FLUSH ASDIRECTED PRN Peripheral IV Insertion Adult [OM.PC] Stat 01/30/21 10:00 Peripheral IV Care [RC] . DIRECTED VL Duplex Lwr Ext Veins Ltd Rt [US] Stat Sodium Chloride 0.9% [Normal Saline] 1,000 ml IV ASDIRECTED 01/30/21 10:15 Diltiazem [Cardizem] 100 mg Sodium Chloride 0.9% [Normal Saline] 100 ml IV TITRATE
[2021-01-30] MEDS ORDERED: Magnesium Sulfate/Water 2 GM in Premix Bag 1 BAG IV ONE (13:29)
[2021-01-30] MEDS ORDERED: Ondansetron 4 MG/2 ML SDV IV PRN (13:32)
[2021-01-30] MEDS ORDERED: Multivitamin Tab PO ONE (13:37)
--- NOTE | 2021-01-30 13:40 | PCM.HP.2 ---
H&P History of Present Illness - General Date of Service: 01/30/21 Admit Problem/Dx: Admission Diagnosis/Problem Admission Diagnosis/Problem Atrial fibrillation - History of Present Illness Initial Comments - Free Text/Narative: This is a 60M with PMHx of Type II DM, Atrial Fibrillation (on xarelto and metoprolol), hx of alcoholism presenting for right lower extremity pain. The patient continues to drink daily, his last drink of beer and liquor was last night. he has bruising on his right lower extremity but he is unsure of mechanism of injury. He denies falls, denies hitting his head. He presented to ED where he was noted to be in Atrial Fibrillation w/RVR. He was given IVF and given diltiazem bolus infusion and started on IV continuous infusion. He denies chest pain, chest pressure, palpitations. Denies nausea, vomiting, abdominal pain, fever. Endorses hx of alcohol withdrawal tremors. Past Medical History - Past Health History Medical/Surgical History: Denies Medical/Surgical History HEENT History: Reports: Cataract Cardiovascular History: Reports: Afib, High Cholesterol, Hypertension Other Cardiovascular History: hx/o a-fib/RVR Respiratory History: Reports: COPD, Other (See Below) Other Respiratory History: 07/24/16 admitted with pneumonia Gastrointestinal History: Reports: GERD Genitourinary History: Reports: Renal Calculus Musculoskeletal History: Reports: Fracture Other Musculoskeletal History: rigth foot fracture 20 yrs ago Neurological History: Reports: Other (See Below) Other Neuro History: With withdrawal for alcohol Psychiatric History: Reports: Addiction Other Psychiatric History: alcohol Endocrine/Metabolic History: Reports: Obesity/BMI 30+ Hematologic History: Reports: None Other Immunologic History: pt states that a doctor told him he had hep c once but his last check was ok Oncologic (Cancer) History: Reports: None Dermatologic History: Reports: None - Infectious Disease History Infectious Disease History: Reports: Hepatitis C, MRSA Other Infectious Disease History: Hep C per Dx Jayshree Ponce hospitalist/[place], 06/2016. - Past Surgical History Musculoskeletal Surgical History: Reports: ORIF, Other (See Below) Social & Family History - Family History Family Medical History: Noncontributory Neurological: Reports: CVA Endocrine/Metabolic: Reports: Diabetes, type II Hematologic: Reports: Other (See Below) Other Hematologic Family History: hepatitias c Immunologic: Reports: None Oncologic: Reports: Leukemia - Tobacco Use Smoking Status *Q: Former Smoker Used Tobacco, but Quit: Yes Month/Year Tobacco Last Used: 2017 - Caffeine Use Caffeine Use: Reports: None - Alcohol Use Date of Last Drink: 07/25/19 Time of Last Drink: 01:00 - Recreational Drug Use Recreational Drug Use: No - Living Situation & Occupation Living situation: Reports: , Alone Occupation: Unemployed Right Leg Pain Score (Numeric/FACES): 10 - Related Data Allergies/Adverse Reactions: Allergies Allergy/AdvReac Type Severity Reaction Status Date / Time No Known Allergies Allergy Verified 01/30/21 09:49 Home Medications: Home Meds Omeprazole 20 mg PO DAILY 07/07/16 [History] Folic Acid 1 mg PO DAILY 09/26/17 [History] Metoprolol Tartrate 75 mg PO BID 09/26/17 [History] Thiamine [Vitamin B-1] 200 mg PO DAILY 09/26/17 [History] Cholecalciferol (Vitamin D3) [Vitamin D] 5,000 unit PO DAILY 01/09/19 [History] Diltiazem [Dilacor XR] 240 mg PO DAILY 01/09/19 [History] Magnesium Oxide 420 mg PO BID 01/09/19 [History] Multivitamin [Multivitamins] 1 each PO DAILY 01/09/19 [History] Rivaroxaban [Xarelto] 20 mg PO DAILY 01/09/19 [History] atorvaSTATin [Lipitor] 40 mg PO BEDTIME 01/09/19 [History] metFORMIN HCl [Metformin HCl] 500 mg PO BID 07/25/19 [History] Gabapentin [Neurontin] 600 mg PO BEDTIME #30 tab 11/20/20 [Rx] Past Medical History - Past Health History Medical/Surgical History: Denies Medical/Surgical History HEENT History: Reports: Cataract Cardiovascular History: Reports: Afib, High Cholesterol, Hypertension Other Cardiovascular History: hx/o a-fib/RVR Respiratory History: Reports: COPD Other Respiratory History: 07/24/16 admitted with pneumonia Gastrointestinal History: Reports: GERD Genitourinary History: Reports: Renal Calculus Musculoskeletal History: Reports: Fracture Other Musculoskeletal History: rigth foot fracture 20 yrs ago; Fx of L wrist 2018 Neurological History: Reports: Other (See Below) Other Neuro History: seizures with ETOH withdrawal Psychiatric History: Reports: Addiction Other Psychiatric History: alcohol Endocrine/Metabolic History: Reports: Diabetes, Type II, Obesity/BMI 30+ Hematologic History: Reports: Anticoagulation Therapy Other Immunologic History: pt states that a doctor told him he had hep c once but his last check was ok Oncologic (Cancer) History: Reports: None Dermatologic History: Reports: None - Infectious Disease History Infectious Disease History: Reports: Hepatitis C, MRSA Other Infectious Disease History: Hep C per Dx Jayshree Ponce hospitalist/[place], 06/2016. - Past Surgical History Musculoskeletal Surgical History: Reports: ORIF, Other (See Below) Other Musculoskeletal Surgeries/Procedures:: right toe -hammer toe surgery, left wrist surgery; BUNIONECTOMY Social & Family History - Family History Family Medical History: No Pertinent Family History Neurological: Reports: CVA Endocrine/Metabolic: Reports: Diabetes, type II Hematologic: Reports: Other (See Below) Other Hematologic Family History: hepatitias c Immunologic: Reports: None Oncologic: Reports: Leukemia - Tobacco Use Tobacco Use Status *Q: Never Tobacco User - Caffeine Use Caffeine Use: Reports: Tea - Recreational Drug Use Recreational Drug Use: No - Living Situation & Occupation Living situation: Reports: , Alone Occupation: Unemployed H&P Review of Systems - Review of Systems: Review Of Systems: Comprehensive ROS is negative, except as noted in HPI. Exam - Exam Exam: See Below - Vital Signs Vital Signs: Last Vital Signs Temp 97 F 01/30/21 13:26 Pulse 117 H 01/30/21 13:26 Resp 16 01/30/21 13:26 BP 104/79 01/30/21 13:26 Pulse Ox 94 L 01/30/21 13:26 Weight: 234 lb 8 oz - Exam Physical Exam Comments:: Gen: no acute distress HEENT: NCAT EOMI MMM Neck: supple CV: Tachycardic, irregularly irregular; normal s1 s2 Lungs: CTAB Abd: Soft, nt, nd Neuro: AOX3, CN intact, nonfocal screening exam Psych: appropriate affect MSK: age appropriate muscle mass Ext: Bruising of right lower extremity - Patient Data Lab Results Last 24 hrs: Laboratory Results - last 24 hr 01/30/21 01/30/21 01/30/21 Range/Units 10:45 10:55 10:55 WBC 10.87 H (4.23-9.07) K/mm3 RBC 4.61 L (4.63-6.08) M/mm3 Hgb 13.6 L (13.7-17.5) gm/dl Hct 40.8 (40.1-51.0) % MCV 88.5 (79.0-92.2) fl MCH 29.5 (25.7-32.2) pg MCHC 33.3 (32.2-35.5) g/dl RDW Std Deviation 48.8 H (35.1-43.9) fL Plt Count 192 (163-337) K/mm3 MPV 8.6 L (9.4-12.3) fl Neut % (Auto) 77.0 H (34.0-67.9) % Lymph % (Auto) 10.9 L (21.8-53.1) % [place] % (Auto) 9.7 (5.3-12.2) % Eos % (Auto) 1.5 (0.8-7.0) Baso % (Auto) 0.3 (0.1-1.2) % Neut # (Auto) 8.37 H (1.78-5.38) K/mm3 Lymph # (Auto) 1.19 L (1.32-3.57) K/mm3 [place] # (Auto) 1.05 H (0.30-0.82) K/mm3 Eos # (Auto) 0.16 (0.04-0.54) K/mm3 Baso # (Auto) 0.03 (0.01-0.08) K/mm3 Sodium 136 (136-145) mEq/L Potassium 3.9 (3.5-5.1) mEq/L Chloride 98 (98-107) mEq/L Carbon Dioxide 28 (21-32) mEq/L Anion Gap 13.9 (5-15) BUN 12 (7-18) mg/dL Creatinine 1.3 (0.7-1.3) mg/dL Est Cr Clr Drug Dosing 57.73 mL/min Estimated GFR (MDRD) 56 (>60) mL/min BUN/Creatinine Ratio 9.2 L (14-18) Glucose 121 H (70-99) mg/dL Calcium 8.4 L (8.5-10.1) mg/dL Magnesium 1.4 L (1.8-2.4) mg/dL Total Bilirubin 0.8 (0.2-1.0) mg/dL AST 38 H (15-37) U/L ALT 45 (16-63) U/L Alkaline Phosphatase 66 (46-116) U/L Troponin I < 0.017 (0.00-0.056) ng/mL Total Protein 6.8 (6.4-8.2) g/dl Albumin 3.2 L (3.4-5.0) g/dl Globulin 3.6 gm/dL Albumin/Globulin Ratio 0.9 L (1-2) Ethyl Alcohol (0.00) gm% SARS-CoV-2 RNA (ISABELLA) Negative (NEGATIVE) 01/30/21 Range/Units 10:55 WBC (4.23-9.07) K/mm3 RBC (4.63-6.08) M/mm3 Hgb (13.7-17.5) gm/dl Hct (40.1-51.0) % MCV (79.0-92.2) fl MCH (25.7-32.2) pg MCHC (32.2-35.5) g/dl RDW Std Deviation (35.1-43.9) fL Plt Count (163-337) K/mm3 MPV (9.4-12.3) fl Neut % (Auto) (34.0-67.9) % Lymph % (Auto) (21.8-53.1) % [place] % (Auto) (5.3-12.2) % Eos % (Auto) (0.8-7.0) Baso % (Auto) (0.1-1.2) % Neut # (Auto) (1.78-5.38) K/mm3 Lymph # (Auto) (1.32-3.57) K/mm3 [place] # (Auto) (0.30-0.82) K/mm3 Eos # (Auto) (0.04-0.54) K/mm3 Baso # (Auto) (0.01-0.08) K/mm3 Sodium (136-145) mEq/L Potassium (3.5-5.1) mEq/L Chloride (98-107) mEq/L Carbon Dioxide (21-32) mEq/L Anion Gap (5-15) BUN (7-18) mg/dL Creatinine (0.7-1.3) mg/dL Est Cr Clr Drug Dosing mL/min Estimated GFR (MDRD) (>60) mL/min BUN/Creatinine Ratio (14-18) Glucose (70-99) mg/dL Calcium (8.5-10.1) mg/dL Magnesium (1.8-2.4) mg/dL Total Bilirubin (0.2-1.0) mg/dL AST (15-37) U/L ALT (16-63) U/L Alkaline Phosphatase (46-116) U/L Troponin I (0.00-0.056) ng/mL Total Protein (6.4-8.2) g/dl Albumin (3.4-5.0) g/dl Globulin gm/dL Albumin/Globulin Ratio (1-2) Ethyl Alcohol 0.00 (0.00) gm% SARS-CoV-2 RNA (ISABELLA) (NEGATIVE) Result Diagrams: 01/30/21 10:55 01/30/21 10:55 Sepsis Event Note - Evaluation Sepsis Screening Result: No Definite Risk - Focused Exam Vital Signs: Vital Signs Temp Pulse Pulse Resp BP Pulse Ox 01/30/21 13:26 97 F 117 H 16 104/79 94 L 01/30/21 09:45 97.6 F 153 H 20 140/110 H 96 *Q Meaningful Use (ADM) - VTE *Q VTE Criteria *Q: 2 Problem List Initiated/Reviewed/Updated: Yes Orders Last 24hrs: Active Orders 24 hr Category Date Time Status Patient Status [ADT] Routine ADT 01/30/21 13:33 Ordered CIWAA Assessment [RC] Q15M Care 01/30/21 13:37 Ordered CIWAA Assessment [RC] Q1H Care 01/30/21 13:37 Ordered CIWAA Assessment [RC] Q30M Care 01/30/21 13:37 Ordered CIWAA Assessment [RC] Q4H Care 01/30/21 13:37 Ordered Cardiac Monitoring [RC] . DIRECTED Care 01/30/21 09:59 Active Cardiac Monitoring [RC] CONTINUOUS Care 01/30/21 13:33 Ordered EKG 12 Lead [EKG Documentation Completion] [RC] ROUTINE Care 01/30/21 09:55 Active Intake and Output [RC] QSHIFT Care 01/30/21 13:33 Ordered Notify Provider Vital Signs [RC] ASDIRECTED Care 01/30/21 13:34 Ordered Notify Provider [RC] PRN Care 01/30/21 13:37 Ordered Oxygen Therapy [RC] PRN Care 01/30/21 13:33 Ordered Peripheral IV Care [RC] . DIRECTED Care 01/30/21 10:00 Active Pulse Oximetry [RC] CONTINUOUS Care 01/30/21 13:33 Ordered Up ad Sharon [RC] ASDIRECTED Care 01/30/21 13:32 Ordered VTE/DVT Education [RC] PER UNIT ROUTINE Care 01/30/21 13:33 Ordered Vital Signs [RC] Q4H Care 01/30/21 13:33 Ordered Regular Diet [DIET] Diet 01/30/21 Dinner Ordered CXR [Chest 1V Frontal] [CR] Routine Exams 01/30/21 13:31 Ordered VL Duplex Lwr Ext Veins Ltd Rt [US] Stat Exams 01/30/21 10:00 Taken BASIC METABOLIC PANEL,BMP [CHEM] DAILY Lab 01/31/21 06:00 Ordered BASIC METABOLIC PANEL,BMP [CHEM] DAILY Lab 02/01/21 06:00 Ordered CBC WITH AUTO DIFF [HEME] DAILY Lab 01/31/21 06:00 Ordered CBC WITH AUTO DIFF [HEME] DAILY Lab 02/01/21 06:00 Ordered CULTURE BLOOD [BC] Stat Lab 01/30/21 13:30 Ordered CULTURE BLOOD [BC] Stat Lab 01/30/21 13:30 Ordered LACTATE SEPSIS W/ REFLEX [CHEM] Stat Lab 01/30/21 13:30 Ordered MAGNESIUM [CHEM] AM Lab 01/31/21 05:11 Ordered UA RFX BONNIE AND CULT IF INDIC [URIN] Routine Lab 01/30/21 13:30 Ordered Acetaminophen [TylenoL] Med 01/30/21 13:32 Ordered 650 mg PO Q4H PRN Diltiazem [Cardizem] 100 mg Med 01/30/21 10:15 Active Sodium Chloride 0.9% [Normal Saline] 100 ml IV TITRATE Folic Acid Med 01/30/21 13:45 Ordered 1 mg PO DAILY LORazepam [Ativan] Med 01/30/21 13:45 Ordered See Protocol IV ASDIRECTED Lactated Ringers [Ringers, Lactated] 1,000 ml Med 01/30/21 13:45 Ordered IV ASDIRECTED Magnesium Sulfate/Water [Magnesium Sulfate in Water 2 Med 01/30/21 13:29 Ordered GM/50 ML] 2 gm Premix Bag 1 bag IV ONETIME Multivitamins [Tab-A-Tanya] Med 01/30/21 13:37 Once 1 tab PO ONETIME ONE Ondansetron [Zofran] Med 01/30/21 13:32 Ordered 4 mg IV Q4H PRN Sodium Chloride 0.9% [Normal Saline] 1,000 ml Med 01/30/21 10:00 Active IV ASDIRECTED Sodium Chloride 0.9% [Saline Flush] Med 01/30/21 09:59 Active 10 ml FLUSH ASDIRECTED PRN Thiamine [Vitamin B-1] Med 01/30/21 13:45 Ordered 100 mg PO DAILY oxyCODONE Med 01/30/21 13:32 Ordered 5 mg PO Q4H PRN Blood Culture x2 Reflex Set [OM.PC] Stat Oth 01/30/21 13:30 Ordered Peripheral IV Insertion Adult [OM.PC] Stat Oth 01/30/21 09:59 Ordered Resuscitation Status Routine Resus Stat 01/30/21 13:32 Ordered Medication Orders Acetaminophen (Acetaminophen 325 Mg Tab) 650 mg PO Q4H PRN PRN Reason: Pain (Mild 1-3)/fever Folic Acid (Folic Acid 1 Mg Tab) 1 mg PO DAILY DIAMANTE Stop: 02/01/21 09:01 Diltiazem HCl 100 mg/ Sodium (Chloride) 100 mls @ 10 mls/hr IV TITRATE DIAMANTE; Protocol Last Titration: 01/30/21 12:08 Dose: 15 mg/hr, 15 mls/hr Documented by: Admin: 01/30/21 10:20 Dose: 10 mg/hr, 10 mls/hr Documented by: EVGENY Sodium Chloride (Normal Saline) 1,000 mls @ 125 mls/hr IV ASDIRECTED DIAMANTE Last Infusion: 01/30/21 12:08 Dose: 125 mls/hr Documented by: Infusion: 01/30/21 11:00 Dose: 0 mls/hr Documented by: Admin: 01/30/21 10:20 Dose: 125 mls/hr Documented by: EVGENY Magnesium Sulfate 2 gm/ Premix 50 mls @ 25 mls/hr IV ONETIME ONE Stop: 01/30/21 15:28 Lactated Ringer's (Ringers, Lactated) 1,000 mls @ 100 mls/hr IV ASDIRECTED DIAMANTE Lorazepam (Lorazepam 2 Mg/Ml Sdv) 0 mg IV ASDIRECTED DIAMANTE; Protocol Multivitamins/Minerals/Vitamin C (Multivitamin Tab) 1 tab PO ONETIME ONE Stop: 01/30/21 13:38 Ondansetron HCl (Ondansetron 4 Mg/2 Ml Sdv) 4 mg IV Q4H PRN PRN Reason: Nausea/Vomiting Oxycodone HCl (Oxycodone 5 Mg Tab) 5 mg PO Q4H PRN PRN Reason: Pain (moderate 4-6) Sodium Chloride (Sodium Chloride 0.9% 10 Ml Syringe) 10 ml FLUSH ASDIRECTED PRN PRN Reason: Keep Vein Open Last Admin: 01/30/21 10:32 Dose: 10 ml Documented by: EVGENY Thiamine HCl (Thiamine 100 Mg Tab) 100 mg PO DAILY DIAMANTE Assessment/Plan Comment:: Assessment: This is a 60M with PMHx of Type II DM, Atrial Fibrillation (on xarelto and metoprolol), hx of alcoholism presenting with Atrial Fibrillation w/RVR. He was given IVF and given diltiazem bolus infusion and started on IV continuous infusion. 1. Afib w/RVR; hx of Afib 2. Hx of Alcoholism and now with early alcohol withdrawal syndrome 3. SIRS syndrome; tachycardia/leukocytosis 4. Hx of Type II DM Plan -admit to inpatient -continue IV diltiazem in fusion -start metoprolol PO -continue xarelto -CIWA alcohol withdrawal protocol -folate/thiamine -IVF -check CXR/lactate/UA -SSI hold metformin -check TSH -echo; given alcohol hx; eval for alcohol induced cardiomyopathy Code Status-Full code DVT ppx-Xarelto Dispo-Anticipated discharge to home in 2-3 days - Mortality Measure Prognosis:: Good
[2021-01-30] MEDS: Lactated Ringers 1,000 ML IV SCH (14:02)
[2021-01-30] MEDS: oxyCODONE 5 MG Tab PO PRN ×2 (14:02→18:00)
[2021-01-30] MEDS: Pantoprazole 40 MG Tab.CR PO SCH (14:02)
[2021-01-30] MEDS: Thiamine 100 MG Tab PO SCH (14:03)
[2021-01-30] MEDS: Folic Acid 1 MG Tab PO SCH (14:03)
[2021-01-30] MEDS: Rivaroxaban 10 MG Tab PO SCH (14:11)
[2021-01-30] MEDS: Cholecalciferol (Vitamin D3) 5,000 UNIT Tab PO SCH ×2 (14:12→14:14)
[2021-01-30] MEDS: Cholecalciferol (Vitamin D3) 5,000 UNIT Cap PO SCH (14:14)
[2021-01-30] MEDS: LORazepam 2 MG/ML SDV IV SCH ×2 (14:41→15:50)
[2021-01-30] MEDS: Metoprolol Succinate 50 MG Tab.ER PO SCH (15:08)
[2021-01-30] MEDS: Insulin Lispro 100 UNIT/ML 10 ML Vial SUBCUT SCH ×2 (16:14→21:09)
[2021-01-30] MEDS: Gabapentin 600 MG Tab PO SCH (20:03)
[2021-01-30] MEDS: atorvaSTATin 40 MG Tab PO SCH (20:03)
[2021-01-30] MEDS: HYDROmorphone 0.5 MG/0.5 ML Syringe IVPUSH PRN ×2 (20:04→23:41)
[2021-01-30] MEDS ORDERED: traZODone 50 MG Tab PO PRN (20:28)
[2021-01-31] MEDS: Lactated Ringers 1,000 ML IV SCH ×2 (00:27→11:23)
[2021-01-31] MEDS: Acetaminophen 325 MG Tab PO PRN ×2 (05:55→10:20)
[2021-01-31] MEDS: Pantoprazole 40 MG Tab.CR PO SCH (05:55)
[2021-01-31] MEDS: HYDROmorphone 0.5 MG/0.5 ML Syringe IVPUSH PRN ×2 (06:54→20:25)
[2021-01-31] MEDS: Insulin Lispro 100 UNIT/ML 10 ML Vial SUBCUT SCH ×4 (07:11→21:31)
[2021-01-31] MEDS: LORazepam 2 MG/ML SDV IV SCH ×8 (07:12→21:46)
[2021-01-31] MEDS: Metoprolol Succinate 50 MG Tab.ER PO SCH (07:24)
[2021-01-31] MEDS: Diltiazem 100 MG in Sodium Chloride 0.9% 100 ML IV SCH ×2 (07:31→14:14)
[2021-01-31] MEDS: Folic Acid 1 MG Tab PO SCH (08:19)
[2021-01-31] MEDS: Thiamine 100 MG Tab PO SCH (08:19)
[2021-01-31] MEDS: Cholecalciferol (Vitamin D3) 5,000 UNIT Cap PO SCH (08:19)
[2021-01-31] MEDS: Rivaroxaban 10 MG Tab PO SCH (08:19)
[2021-01-31] MEDS ORDERED: Lactated Ringers 1,000 ML IV ONE ×2 (08:45→09:45)
[2021-01-31] MEDS: Metoprolol Tartrate 50 MG Tab PO SCH ×2 (08:55→20:12)
[2021-01-31] MEDS: LORazepam 1 MG Tab PO PRN ×4 (11:23→18:12)
--- NOTE | 2021-01-31 11:35 | CR ---
Addendum: Preliminary report from [facility] was issued after my final report was dictated. This preliminary report agrees with my report. --- Addendum1 above dictated on [01/31/2021 12:19] by [Shaggy Gaviria, Wero Esparza] --- --- Addendum1 above signed on [01/31/2021 12:40] by [Shaggy Gaviria Hilton J.] --- --- Original report below dictated on [01/31/2021 11:26] by [Shaggy Gaviria, Wero Esparza] --- --- Original report below signed on [01/31/2021 11:33] by [Shaggy Gaviria Hilton J.] --- Chest: Portable view of the chest was obtained. Comparison: Prior chest x-ray of 01/30/21. Increased density is seen within the left lung base which is an interval change from prior study. Lungs otherwise are clear. Heart size and mediastinum are normal. No acute osseous finding is seen. Impression: 1. Increased density of the left lung base. This is an interval change from previous study performed one day earlier. Findings could represent hydration and appearance of pneumonia within the left base. Please correlate that this does respond to treatment as a pneumonia. Diagnostic code #3 --- Addendum1 signed ---
--- NOTE | 2021-01-31 11:44 | PCM.PN ---
- General Info Date of Service: 01/31/21 Admission Dx/Problem (Free Text): Admission Diagnosis/Problem Admission Diagnosis/Problem Atrial fibrillation Subjective Update: patient noted to be febrile back in Afib w/RVR CIWA scores increasing denies cp/palpitations - Patient Data Vitals - Most Recent: Last Vital Signs Temp 99.8 F 01/31/21 10:20 Pulse 149 H 01/31/21 07:24 Resp 30 H 01/31/21 10:35 BP 115/76 01/31/21 10:35 Pulse Ox 92 L 01/31/21 10:35 Weight - Most Recent: 239 lb 8 oz I&O - Last 24 Hours: Intake & Output 01/30/21 01/31/21 01/31/21 22:59 06:59 14:59 Intake Total 620 2451 Output Total 375 Balance 620 8856 Lab Results Last 24 Hours: Laboratory Results - last 24 hr 01/30/21 01/30/21 01/30/21 Range/Units 10:55 13:57 15:01 WBC (4.23-9.07) K/mm3 RBC (4.63-6.08) M/mm3 Hgb (13.7-17.5) gm/dl Hct (40.1-51.0) % MCV (79.0-92.2) fl MCH (25.7-32.2) pg MCHC (32.2-35.5) g/dl RDW Std Deviation (35.1-43.9) fL Plt Count (163-337) K/mm3 MPV (9.4-12.3) fl Neut % (Auto) (34.0-67.9) % Lymph % (Auto) (21.8-53.1) % [place] % (Auto) (5.3-12.2) % Eos % (Auto) (0.8-7.0) Baso % (Auto) (0.1-1.2) % Neut # (Auto) (1.78-5.38) K/mm3 Lymph # (Auto) (1.32-3.57) K/mm3 [place] # (Auto) (0.30-0.82) K/mm3 Eos # (Auto) (0.04-0.54) K/mm3 Baso # (Auto) (0.01-0.08) K/mm3 Sodium (136-145) mEq/L Potassium (3.5-5.1) mEq/L Chloride (98-107) mEq/L Carbon Dioxide (21-32) mEq/L Anion Gap (5-15) BUN (7-18) mg/dL Creatinine (0.7-1.3) mg/dL Est Cr Clr Drug Dosing mL/min Estimated GFR (MDRD) (>60) mL/min BUN/Creatinine Ratio (14-18) Glucose (70-99) mg/dL POC Glucose 103 H (70-99) mg/dL Lactic Acid 1.6 (0.4-2.0) mmol/L Calcium (8.5-10.1) mg/dL Magnesium (1.8-2.4) mg/dL TSH 3rd Generation (0.358-3.74) uIU/mL Urine Color (Yellow) Urine Appearance (Clear) Urine pH (5.0-8.0) Ur Specific [place] (1.005-1.030) Urine Protein (Negative) Urine Glucose (UA) (Negative) Urine Ketones (Negative) Urine Occult Blood (Negative) Urine Nitrite (Negative) Urine Bilirubin (Negative) Urine Urobilinogen (0.2-1.0) Ur Leukocyte Esterase (Negative) U Hyaline Cast (Auto) (0-5) /lpf Urine RBC (0-5) /hpf Urine WBC (0-5) /hpf Ur Epithelial Cells (0-5) /hpf Urine Bacteria (FEW) /hpf Urine Mucus (FEW) /hpf Ethyl Alcohol 0.00 (0.00) gm% 01/30/21 01/30/21 01/30/21 Range/Units 17:58 19:57 23:40 WBC (4.23-9.07) K/mm3 RBC (4.63-6.08) M/mm3 Hgb (13.7-17.5) gm/dl Hct (40.1-51.0) % MCV (79.0-92.2) fl MCH (25.7-32.2) pg MCHC (32.2-35.5) g/dl RDW Std Deviation (35.1-43.9) fL Plt Count (163-337) K/mm3 MPV (9.4-12.3) fl Neut % (Auto) (34.0-67.9) % Lymph % (Auto) (21.8-53.1) % [place] % (Auto) (5.3-12.2) % Eos % (Auto) (0.8-7.0) Baso % (Auto) (0.1-1.2) % Neut # (Auto) (1.78-5.38) K/mm3 Lymph # (Auto) (1.32-3.57) K/mm3 [place] # (Auto) (0.30-0.82) K/mm3 Eos # (Auto) (0.04-0.54) K/mm3 Baso # (Auto) (0.01-0.08) K/mm3 Sodium (136-145) mEq/L Potassium (3.5-5.1) mEq/L Chloride (98-107) mEq/L Carbon Dioxide (21-32) mEq/L Anion Gap (5-15) BUN (7-18) mg/dL Creatinine (0.7-1.3) mg/dL Est Cr Clr Drug Dosing mL/min Estimated GFR (MDRD) (>60) mL/min BUN/Creatinine Ratio (14-18) Glucose (70-99) mg/dL POC Glucose 120 H 126 H (70-99) mg/dL Lactic Acid (0.4-2.0) mmol/L Calcium (8.5-10.1) mg/dL Magnesium (1.8-2.4) mg/dL TSH 3rd Generation (0.358-3.74) uIU/mL Urine Color Yellow (Yellow) Urine Appearance Clear (Clear) Urine pH 6.0 (5.0-8.0) Ur Specific [place] > or = 1.030 (1.005-1.030) Urine Protein Negative (Negative) Urine Glucose (UA) Negative (Negative) Urine Ketones Negative (Negative) Urine Occult Blood 2+ H (Negative) Urine Nitrite Negative (Negative) Urine Bilirubin Negative (Negative) Urine Urobilinogen 0.2 (0.2-1.0) Ur Leukocyte Esterase Negative (Negative) U Hyaline Cast (Auto) 10-20 H (0-5) /lpf Urine RBC 5-10 H (0-5) /hpf Urine WBC 0-5 (0-5) /hpf Ur Epithelial Cells Not seen (0-5) /hpf Urine Bacteria Few (FEW) /hpf Urine Mucus Many H (FEW) /hpf Ethyl Alcohol (0.00) gm% 01/31/21 01/31/21 01/31/21 Range/Units 05:36 05:36 05:36 WBC 8.55 (4.23-9.07) K/mm3 RBC 4.27 L (4.63-6.08) M/mm3 Hgb 12.5 L (13.7-17.5) gm/dl Hct 38.6 L (40.1-51.0) % MCV 90.4 (79.0-92.2) fl MCH 29.3 (25.7-32.2) pg MCHC 32.4 (32.2-35.5) g/dl RDW Std Deviation 50.1 H (35.1-43.9) fL Plt Count 148 L (163-337) K/mm3 MPV 9.4 (9.4-12.3) fl Neut % (Auto) 77.7 H (34.0-67.9) % Lymph % (Auto) 10.6 L (21.8-53.1) % [place] % (Auto) 7.8 (5.3-12.2) % Eos % (Auto) 2.9 (0.8-7.0) Baso % (Auto) 0.4 (0.1-1.2) % Neut # (Auto) 6.64 H (1.78-5.38) K/mm3 Lymph # (Auto) 0.91 L (1.32-3.57) K/mm3 [place] # (Auto) 0.67 (0.30-0.82) K/mm3 Eos # (Auto) 0.25 (0.04-0.54) K/mm3 Baso # (Auto) 0.03 (0.01-0.08) K/mm3 Sodium 136 (136-145) mEq/L Potassium 4.2 (3.5-5.1) mEq/L Chloride 100 (98-107) mEq/L Carbon Dioxide 31 (21-32) mEq/L Anion Gap 9.2 (5-15) BUN 12 (7-18) mg/dL Creatinine 1.1 (0.7-1.3) mg/dL Est Cr Clr Drug Dosing 68.23 mL/min Estimated GFR (MDRD) > 60 (>60) mL/min BUN/Creatinine Ratio 10.9 L (14-18) Glucose 115 H (70-99) mg/dL POC Glucose (70-99) mg/dL Lactic Acid (0.4-2.0) mmol/L Calcium 8.2 L (8.5-10.1) mg/dL Magnesium 1.8 (1.8-2.4) mg/dL TSH 3rd Generation 1.667 (0.358-3.74) uIU/mL Urine Color (Yellow) Urine Appearance (Clear) Urine pH (5.0-8.0) Ur Specific [place] (1.005-1.030) Urine Protein (Negative) Urine Glucose (UA) (Negative) Urine Ketones (Negative) Urine Occult Blood (Negative) Urine Nitrite (Negative) Urine Bilirubin (Negative) Urine Urobilinogen (0.2-1.0) Ur Leukocyte Esterase (Negative) U Hyaline Cast (Auto) (0-5) /lpf Urine RBC (0-5) /hpf Urine WBC (0-5) /hpf Ur Epithelial Cells (0-5) /hpf Urine Bacteria (FEW) /hpf Urine Mucus (FEW) /hpf Ethyl Alcohol (0.00) gm% 01/31/21 01/31/21 Range/Units 07:00 07:55 WBC (4.23-9.07) K/mm3 RBC (4.63-6.08) M/mm3 Hgb (13.7-17.5) gm/dl Hct (40.1-51.0) % MCV (79.0-92.2) fl MCH (25.7-32.2) pg MCHC (32.2-35.5) g/dl RDW Std Deviation (35.1-43.9) fL Plt Count (163-337) K/mm3 MPV (9.4-12.3) fl Neut % (Auto) (34.0-67.9) % Lymph % (Auto) (21.8-53.1) % [place] % (Auto) (5.3-12.2) % Eos % (Auto) (0.8-7.0) Baso % (Auto) (0.1-1.2) % Neut # (Auto) (1.78-5.38) K/mm3 Lymph # (Auto) (1.32-3.57) K/mm3 [place] # (Auto) (0.30-0.82) K/mm3 Eos # (Auto) (0.04-0.54) K/mm3 Baso # (Auto) (0.01-0.08) K/mm3 Sodium (136-145) mEq/L Potassium (3.5-5.1) mEq/L Chloride (98-107) mEq/L Carbon Dioxide (21-32) mEq/L Anion Gap (5-15) BUN (7-18) mg/dL Creatinine (0.7-1.3) mg/dL Est Cr Clr Drug Dosing mL/min Estimated GFR (MDRD) (>60) mL/min BUN/Creatinine Ratio (14-18) Glucose (70-99) mg/dL POC Glucose 116 H (70-99) mg/dL Lactic Acid 2.1 H* (0.4-2.0) mmol/L Calcium (8.5-10.1) mg/dL Magnesium (1.8-2.4) mg/dL TSH 3rd Generation (0.358-3.74) uIU/mL Urine Color (Yellow) Urine Appearance (Clear) Urine pH (5.0-8.0) Ur Specific [place] (1.005-1.030) Urine Protein (Negative) Urine Glucose (UA) (Negative) Urine Ketones (Negative) Urine Occult Blood (Negative) Urine Nitrite (Negative) Urine Bilirubin (Negative) Urine Urobilinogen (0.2-1.0) Ur Leukocyte Esterase (Negative) U Hyaline Cast (Auto) (0-5) /lpf Urine RBC (0-5) /hpf Urine WBC (0-5) /hpf Ur Epithelial Cells (0-5) /hpf Urine Bacteria (FEW) /hpf Urine Mucus (FEW) /hpf Ethyl Alcohol (0.00) gm% Med Orders - Current: Current Medications Acetaminophen (Acetaminophen 325 Mg Tab) 650 mg PO Q4H PRN PRN Reason: Pain (Mild 1-3)/fever Last Admin: 01/31/21 10:20 Dose: 650 mg Documented by: Atorvastatin Calcium (Atorvastatin 40 Mg Tab) 40 mg PO BEDTIME DIAMANTE Last Admin: 01/30/21 20:03 Dose: 40 mg Documented by: Cholecalciferol (Cholecalciferol (Vitamin D3) 5,000 Unit Cap) 5,000 unit PO DAILY [facility] Last Admin: 01/31/21 08:19 Dose: 5,000 unit Documented by: Folic Acid (Folic Acid 1 Mg Tab) 1 mg PO DAILY [facility] Stop: 02/01/21 09:01 Last Admin: 01/31/21 08:19 Dose: 1 mg Documented by: Gabapentin (Gabapentin 600 Mg Tab) 600 mg PO BEDTIME [facility] Last Admin: 01/30/21 20:03 Dose: 600 mg Documented by: Hydromorphone HCl (Hydromorphone 0.5 Mg/0.5 Ml Syringe) 0.5 mg IVPUSH Q1H PRN PRN Reason: Pain (moderate 4-6) Last Admin: 01/31/21 06:54 Dose: 0.5 mg Documented by: Diltiazem HCl 100 mg/ Sodium (Chloride) 100 mls @ 10 mls/hr IV TITRATE [facility]; Protocol Last Titration: 01/31/21 08:41 Dose: 15 mg/hr, 15 mls/hr Documented by: Lactated Ringer's (Ringers, Lactated) 1,000 mls @ 100 mls/hr IV ASDIRECTED [facility] Last Admin: 01/31/21 11:23 Dose: 100 mls/hr Documented by: Insulin Human Lispro (Insulin Lispro 100 Unit/Ml 10 Ml Vial) 0 unit SUBCUT QIDACANDBED [facility]; Protocol Last Admin: 01/31/21 07:11 Dose: Not Given Documented by: Lorazepam (Lorazepam 2 Mg/Ml Sdv) 0 mg IV ASDIRECTED [facility]; Protocol Last Admin: 01/31/21 10:20 Dose: 2 mg Documented by: Lorazepam (Lorazepam 1 Mg Tab) 1 mg PO Q1H PRN PRN Reason: Withdrawal Symptoms Last Admin: 01/31/21 11:23 Dose: 1 mg Documented by: Metoprolol Tartrate (Metoprolol Tartrate 50 Mg Tab) 50 mg PO Q12HR [facility] Last Admin: 01/31/21 08:55 Dose: Not Given Documented by: Ondansetron HCl (Ondansetron 4 Mg/2 Ml Sdv) 4 mg IV Q4H PRN PRN Reason: Nausea/Vomiting Oxycodone HCl (Oxycodone 5 Mg Tab) 5 mg PO Q4H PRN PRN Reason: Pain (moderate 4-6) Last Admin: 01/30/21 18:00 Dose: 5 mg Documented by: Pantoprazole Sodium (Pantoprazole 40 Mg Tab.Cr) 40 mg PO ACBREAKFAST [facility] Last Admin: 01/31/21 05:55 Dose: 40 mg Documented by: Rivaroxaban (Rivaroxaban 10 Mg Tab) 20 mg PO DAILY [facility] Last Admin: 01/31/21 08:19 Dose: 20 mg Documented by: Sodium Chloride (Sodium Chloride 0.9% 10 Ml Syringe) 10 ml FLUSH ASDIRECTED PRN PRN Reason: Keep Vein Open Last Admin: 01/30/21 10:32 Dose: 10 ml Documented by: Thiamine HCl (Thiamine 100 Mg Tab) 100 mg PO DAILY [facility] Last Admin: 01/31/21 08:19 Dose: 100 mg Documented by: Trazodone HCl (Trazodone 50 Mg Tab) 50 mg PO BEDTIME PRN PRN Reason: Sleep Vancomycin HCl (Pharmacy To Dose - Vancomycin) 1 dose .XX ASDIRECTED [facility] Discontinued Medications Cholecalciferol (Cholecalciferol (Vitamin D3) 5,000 Unit Tab) 5,000 unit PO DAILY [facility] Last Admin: 01/30/21 14:14 Dose: Not Given Documented by: Diltiazem HCl (Diltiazem 50 Mg/10 Ml Sdv) 10 mg IVPUSH ONETIME ONE Stop: 01/30/21 10:01 Last Admin: 01/30/21 10:07 Dose: 10 mg Documented by: Hydromorphone HCl (Hydromorphone 1 Mg/Ml Syringe) 1 mg IVPUSH ONETIME ONE Stop: 01/30/21 10:01 Last Admin: 01/30/21 10:07 Dose: 1 mg Documented by: Hydromorphone HCl (Hydromorphone 0.5 Mg/0.5 Ml Syringe) 0.5 mg IVPUSH ONETIME ONE Stop: 01/30/21 12:01 Last Admin: 01/30/21 12:07 Dose: 0.5 mg Documented by: Sodium Chloride (Normal Saline) 1,000 mls @ 125 mls/hr IV ASDIRECTED [facility] Last Infusion: 01/30/21 12:08 Dose: 125 mls/hr Documented by: Sodium Chloride (Normal Saline) 1,000 mls @ 999 mls/hr IV ONETIME ONE Stop: 01/30/21 12:00 Last Admin: 01/30/21 11:00 Dose: 999 mls/hr Documented by: Magnesium Sulfate 2 gm/ Premix 50 mls @ 25 mls/hr IV ONETIME ONE Stop: 01/30/21 15:28 Last Admin: 01/30/21 14:02 Dose: 25 mls/hr Documented by: Lactated Ringer's (Ringers, Lactated) 1,000 mls @ 1,000 mls/hr IV .BOLUS ONE Stop: 01/31/21 09:44 Last Admin: 01/31/21 08:54 Dose: 1,000 mls/hr Documented by: Lactated Ringer's (Ringers, Lactated) 1,000 mls @ 1,000 mls/hr IV .BOLUS ONE Stop: 01/31/21 10:44 Last Admin: 01/31/21 10:10 Dose: 1,000 mls/hr Documented by: Metoprolol Succinate (Metoprolol Succinate 50 Mg Tab.Er) 50 mg PO DAILY [facility] Last Admin: 01/31/21 07:24 Dose: 50 mg Documented by: Multivitamins/Minerals/Vitamin C (Multivitamin Tab) 1 tab PO ONETIME ONE Stop: 01/30/21 13:38 Last Admin: 01/30/21 14:02 Dose: 1 tab Documented by: - Exam Physical Findings Comments:: Gen: no acute distress; mildly sedated HEENT: NCAT EOMI MMM Neck: supple CV: Tachycardic, irregularly irregular; normal s1 s2 Lungs:diminished Abd: Soft, nt, nd Neuro: Alert, oriented, CN intact, nonfocal screening exam Psych: appropriate affect MSK: age appropriate muscle mass Ext: Bruising of right lower extremity - Patient Data Lab Results Last 24 hrs: Laboratory Results - last 24 hr 01/30/21 01/30/21 01/30/21 Range/Units 10:55 13:57 15:01 WBC (4.23-9.07) K/mm3 RBC (4.63-6.08) M/mm3 Hgb (13.7-17.5) gm/dl Hct (40.1-51.0) % MCV (79.0-92.2) fl MCH (25.7-32.2) pg MCHC (32.2-35.5) g/dl RDW Std Deviation (35.1-43.9) fL Plt Count (163-337) K/mm3 MPV (9.4-12.3) fl Neut % (Auto) (34.0-67.9) % Lymph % (Auto) (21.8-53.1) % [place] % (Auto) (5.3-12.2) % Eos % (Auto) (0.8-7.0) Baso % (Auto) (0.1-1.2) % Neut # (Auto) (1.78-5.38) K/mm3 Lymph # (Auto) (1.32-3.57) K/mm3 [place] # (Auto) (0.30-0.82) K/mm3 Eos # (Auto) (0.04-0.54) K/mm3 Baso # (Auto) (0.01-0.08) K/mm3 Sodium (136-145) mEq/L Potassium (3.5-5.1) mEq/L Chloride (98-107) mEq/L Carbon Dioxide (21-32) mEq/L Anion Gap (5-15) BUN (7-18) mg/dL Creatinine (0.7-1.3) mg/dL Est Cr Clr Drug Dosing mL/min Estimated GFR (MDRD) (>60) mL/min BUN/Creatinine Ratio (14-18) Glucose (70-99) mg/dL POC Glucose 103 H (70-99) mg/dL Lactic Acid 1.6 (0.4-2.0) mmol/L Calcium (8.5-10.1) mg/dL Magnesium (1.8-2.4) mg/dL TSH 3rd Generation (0.358-3.74) uIU/mL Urine Color (Yellow) Urine Appearance (Clear) Urine pH (5.0-8.0) Ur Specific [place] (1.005-1.030) Urine Protein (Negative) Urine Glucose (UA) (Negative) Urine Ketones (Negative) Urine Occult Blood (Negative) Urine Nitrite (Negative) Urine Bilirubin (Negative) Urine Urobilinogen (0.2-1.0) Ur Leukocyte Esterase (Negative) U Hyaline Cast (Auto) (0-5) /lpf Urine RBC (0-5) /hpf Urine WBC (0-5) /hpf Ur Epithelial Cells (0-5) /hpf Urine Bacteria (FEW) /hpf Urine Mucus (FEW) /hpf Ethyl Alcohol 0.00 (0.00) gm% 01/30/21 01/30/21 01/30/21 Range/Units 17:58 19:57 23:40 WBC (4.23-9.07) K/mm3 RBC (4.63-6.08) M/mm3 Hgb (13.7-17.5) gm/dl Hct (40.1-51.0) % MCV (79.0-92.2) fl MCH (25.7-32.2) pg MCHC (32.2-35.5) g/dl RDW Std Deviation (35.1-43.9) fL Plt Count (163-337) K/mm3 MPV (9.4-12.3) fl Neut % (Auto) (34.0-67.9) % Lymph % (Auto) (21.8-53.1) % [place] % (Auto) (5.3-12.2) % Eos % (Auto) (0.8-7.0) Baso % (Auto) (0.1-1.2) % Neut # (Auto) (1.78-5.38) K/mm3 Lymph # (Auto) (1.32-3.57) K/mm3 [place] # (Auto) (0.30-0.82) K/mm3 Eos # (Auto) (0.04-0.54) K/mm3 Baso # (Auto) (0.01-0.08) K/mm3 Sodium (136-145) mEq/L Potassium (3.5-5.1) mEq/L Chloride (98-107) mEq/L Carbon Dioxide (21-32) mEq/L Anion Gap (5-15) BUN (7-18) mg/dL Creatinine (0.7-1.3) mg/dL Est Cr Clr Drug Dosing mL/min Estimated GFR (MDRD) (>60) mL/min BUN/Creatinine Ratio (14-18) Glucose (70-99) mg/dL POC Glucose 120 H 126 H (70-99) mg/dL Lactic Acid (0.4-2.0) mmol/L Calcium (8.5-10.1) mg/dL Magnesium (1.8-2.4) mg/dL TSH 3rd Generation (0.358-3.74) uIU/mL Urine Color Yellow (Yellow) Urine Appearance Clear (Clear) Urine pH 6.0 (5.0-8.0) Ur Specific [place] > or = 1.030 (1.005-1.030) Urine Protein Negative (Negative) Urine Glucose (UA) Negative (Negative) Urine Ketones Negative (Negative) Urine Occult Blood 2+ H (Negative) Urine Nitrite Negative (Negative) Urine Bilirubin Negative (Negative) Urine Urobilinogen 0.2 (0.2-1.0) Ur Leukocyte Esterase Negative (Negative) U Hyaline Cast (Auto) 10-20 H (0-5) /lpf Urine RBC 5-10 H (0-5) /hpf Urine WBC 0-5 (0-5) /hpf Ur Epithelial Cells Not seen (0-5) /hpf Urine Bacteria Few (FEW) /hpf Urine Mucus Many H (FEW) /hpf Ethyl Alcohol (0.00) gm% 01/31/21 01/31/21 01/31/21 Range/Units 05:36 05:36 05:36 WBC 8.55 (4.23-9.07) K/mm3 RBC 4.27 L (4.63-6.08) M/mm3 Hgb 12.5 L (13.7-17.5) gm/dl Hct 38.6 L (40.1-51.0) % MCV 90.4 (79.0-92.2) fl MCH 29.3 (25.7-32.2) pg MCHC 32.4 (32.2-35.5) g/dl RDW Std Deviation 50.1 H (35.1-43.9) fL Plt Count 148 L (163-337) K/mm3 MPV 9.4 (9.4-12.3) fl Neut % (Auto) 77.7 H (34.0-67.9) % Lymph % (Auto) 10.6 L (21.8-53.1) % [place] % (Auto) 7.8 (5.3-12.2) % Eos % (Auto) 2.9 (0.8-7.0) Baso % (Auto) 0.4 (0.1-1.2) % Neut # (Auto) 6.64 H (1.78-5.38) K/mm3 Lymph # (Auto) 0.91 L (1.32-3.57) K/mm3 [place] # (Auto) 0.67 (0.30-0.82) K/mm3 Eos # (Auto) 0.25 (0.04-0.54) K/mm3 Baso # (Auto) 0.03 (0.01-0.08) K/mm3 Sodium 136 (136-145) mEq/L Potassium 4.2 (3.5-5.1) mEq/L Chloride 100 (98-107) mEq/L Carbon Dioxide 31 (21-32) mEq/L Anion Gap 9.2 (5-15) BUN 12 (7-18) mg/dL Creatinine 1.1 (0.7-1.3) mg/dL Est Cr Clr Drug Dosing 68.23 mL/min Estimated GFR (MDRD) > 60 (>60) mL/min BUN/Creatinine Ratio 10.9 L (14-18) Glucose 115 H (70-99) mg/dL POC Glucose (70-99) mg/dL Lactic Acid (0.4-2.0) mmol/L Calcium 8.2 L (8.5-10.1) mg/dL Magnesium 1.8 (1.8-2.4) mg/dL TSH 3rd Generation 1.667 (0.358-3.74) uIU/mL Urine Color (Yellow) Urine Appearance (Clear) Urine pH (5.0-8.0) Ur Specific [place] (1.005-1.030) Urine Protein (Negative) Urine Glucose (UA) (Negative) Urine Ketones (Negative) Urine Occult Blood (Negative) Urine Nitrite (Negative) Urine Bilirubin (Negative) Urine Urobilinogen (0.2-1.0) Ur Leukocyte Esterase (Negative) U Hyaline Cast (Auto) (0-5) /lpf Urine RBC (0-5) /hpf Urine WBC (0-5) /hpf Ur Epithelial Cells (0-5) /hpf Urine Bacteria (FEW) /hpf Urine Mucus (FEW) /hpf Ethyl Alcohol (0.00) gm% 01/31/21 01/31/21 Range/Units 07:00 07:55 WBC (4.23-9.07) K/mm3 RBC (4.63-6.08) M/mm3 Hgb (13.7-17.5) gm/dl Hct (40.1-51.0) % MCV (79.0-92.2) fl MCH (25.7-32.2) pg MCHC (32.2-35.5) g/dl RDW Std Deviation (35.1-43.9) fL Plt Count (163-337) K/mm3 MPV (9.4-12.3) fl Neut % (Auto) (34.0-67.9) % Lymph % (Auto) (21.8-53.1) % [place] % (Auto) (5.3-12.2) % Eos % (Auto) (0.8-7.0) Baso % (Auto) (0.1-1.2) % Neut # (Auto) (1.78-5.38) K/mm3 Lymph # (Auto) (1.32-3.57) K/mm3 [place] # (Auto) (0.30-0.82) K/mm3 Eos # (Auto) (0.04-0.54) K/mm3 Baso # (Auto) (0.01-0.08) K/mm3 Sodium (136-145) mEq/L Potassium (3.5-5.1) mEq/L Chloride (98-107) mEq/L Carbon Dioxide (21-32) mEq/L Anion Gap (5-15) BUN (7-18) mg/dL Creatinine (0.7-1.3) mg/dL Est Cr Clr Drug Dosing mL/min Estimated GFR (MDRD) (>60) mL/min BUN/Creatinine Ratio (14-18) Glucose (70-99) mg/dL POC Glucose 116 H (70-99) mg/dL Lactic Acid 2.1 H* (0.4-2.0) mmol/L Calcium (8.5-10.1) mg/dL Magnesium (1.8-2.4) mg/dL TSH 3rd Generation (0.358-3.74) uIU/mL Urine Color (Yellow) Urine Appearance (Clear) Urine pH (5.0-8.0) Ur Specific [place] (1.005-1.030) Urine Protein (Negative) Urine Glucose (UA) (Negative) Urine Ketones (Negative) Urine Occult Blood (Negative) Urine Nitrite (Negative) Urine Bilirubin (Negative) Urine Urobilinogen (0.2-1.0) Ur Leukocyte Esterase (Negative) U Hyaline Cast (Auto) (0-5) /lpf Urine RBC (0-5) /hpf Urine WBC (0-5) /hpf Ur Epithelial Cells (0-5) /hpf Urine Bacteria (FEW) /hpf Urine Mucus (FEW) /hpf Ethyl Alcohol (0.00) gm% Result Diagrams: 01/31/21 05:36 01/31/21 05:36 Sepsis Event Note - Evaluation Sepsis Screening Result: Sepsis Risk - Focused Exam Vital Signs: Vital Signs Temp Temp Pulse Resp BP BP Pulse Ox 01/31/21 10:35 30 H 115/76 92 L 01/31/21 10:34 33 H 01/31/21 10:20 99.8 F 01/31/21 10:01 37 H 126/90 90 L 01/31/21 10:00 99.8 F 30 H 89 L 01/31/21 09:20 27 H 128/105 H 94 L 01/31/21 09:19 40 H 92 L 01/31/21 09:07 25 H 157/145 H 90 L 01/31/21 09:06 18 93 L 01/31/21 09:00 28 H 92 L 01/31/21 08:04 99.6 F 01/31/21 08:03 32 H 116/83 91 L 01/31/21 08:02 34 H 90 L 01/31/21 08:00 29 H 91 L 01/31/21 07:41 31 H 137/84 90 L 01/31/21 07:40 25 H 91 L 01/31/21 07:26 100 F 24 H 116/70 92 L 01/31/21 07:24 149 H 116/70 01/31/21 07:22 29 H 116/70 90 L 01/31/21 07:21 29 H 89 L 01/31/21 07:00 24 H 90 L 01/31/21 06:00 29 H 01/31/21 05:55 99.8 F 01/31/21 05:00 98.9 F 01/31/21 04:00 98.7 F 21 H 132/99 H 92 L 01/31/21 03:00 21 H 94 L 01/31/21 02:00 20 94 L 01/31/21 01:56 01/31/21 00:00 97.8 F 19 132/97 H 94 L Pulse Ox 01/31/21 10:35 01/31/21 10:34 01/31/21 10:20 01/31/21 10:01 01/31/21 10:00 01/31/21 09:20 01/31/21 09:19 01/31/21 09:07 01/31/21 09:06 01/31/21 09:00 01/31/21 08:04 01/31/21 08:03 01/31/21 08:02 01/31/21 08:00 01/31/21 07:41 01/31/21 07:40 01/31/21 07:26 01/31/21 07:24 01/31/21 07:22 01/31/21 07:21 01/31/21 07:00 01/31/21 06:00 01/31/21 05:55 01/31/21 05:00 01/31/21 04:00 01/31/21 03:00 01/31/21 02:00 01/31/21 01:56 93 L 01/31/21 00:00 - Problem List Review Problem List Initiated/Reviewed/Updated: Yes - My Orders Last 24 Hours: My Active Orders 01/30/21 13:30 Blood Culture x2 Reflex Set [OM.PC] Stat 01/30/21 13:31 CXR [Chest 1V Frontal] [CR] Routine 01/30/21 13:32 Up ad Sharon [RC] ASDIRECTED Acetaminophen [TylenoL] 650 mg PO Q4H PRN Ondansetron [Zofran] 4 mg IV Q4H PRN oxyCODONE 5 mg PO Q4H PRN Resuscitation Status Routine 01/30/21 13:33 Patient Status [ADT] Routine Cardiac Monitoring [RC] CONTINUOUS Intake and Output [RC] 04,16 Oxygen Therapy [RC] PRN Pulse Oximetry [RC] CONTINUOUS VTE/DVT Education [RC] Vital Signs [RC] Q4H 01/30/21 13:34 Notify Provider Vital Signs [RC] ASDIRECTED 01/30/21 13:37 CIWAA Assessment [RC] Q1H Notify Provider [RC] PRN 01/30/21 13:45 Folic Acid 1 mg PO DAILY LORazepam [Ativan] See Protocol IV ASDIRECTED Lactated Ringers [Ringers, Lactated] 1,000 ml IV ASDIRECTED Pantoprazole [ProTONIX] 40 mg PO ACBREAKFAST Rivaroxaban [Xarelto] 20 mg PO DAILY Thiamine [Vitamin B-1] 100 mg PO DAILY 01/30/21 13:57 CULTURE BLOOD [BC] Stat 01/30/21 14:00 CULTURE BLOOD [BC] Stat 01/30/21 14:15 Cholecalciferol (Vitamin D3) [Vitamin D3] 5,000 unit PO DAILY 01/30/21 14:53 HYDROmorphone [Dilaudid] 0.5 mg IVPUSH Q1H PRN 01/30/21 14:55 Blood Glucose Check, Bedside [RC] QIDACANDBED 01/30/21 16:13 LORazepam [Ativan] 1 mg PO Q1H PRN 01/30/21 Dinner Regular Diet [DIET] Insulin Lispro [HumaLOG] See Protocol SUBCUT QIDACANDBED 01/30/21 20:28 traZODone 50 mg PO BEDTIME PRN 01/30/21 21:00 Gabapentin [Neurontin] 600 mg PO BEDTIME atorvaSTATin [Lipitor] 40 mg PO BEDTIME 01/31/21 07:37 Blood Culture x2 Reflex Set [OM.PC] Stat 01/31/21 07:55 CULTURE BLOOD [BC] Stat 01/31/21 08:25 CULTURE BLOOD [BC] Stat 01/31/21 09:00 Metoprolol Tartrate [Lopressor] 50 mg PO Q12HR 01/31/21 09:51 UA RFX BONNIE AND CULT IF INDIC [URIN] Routine 01/31/21 11:35 LACTIC ACID [CHEM] Routine 01/31/21 11:45 Pharmacy to Dose - Vancomycin 1 dose .XX ASDIRECTED Piperacillin/Tazobactam [Piperacil-Tazobact] 4.5 gm Sodium Chloride 0.9% [N ormal Saline] 100 ml IV Q8H 01/31/21 12:00 LACTIC ACID SEPSIS W/ REFLEX [LACTATE SEPSIS W/ REFLEX] [CHEM] Routine 02/01/21 06:00 BASIC METABOLIC PANEL,BMP [CHEM] DAILY CBC WITH AUTO DIFF [HEME] DAILY - Plan Plan:: Assessment: This is a 60M with PMHx of Type II DM, Atrial Fibrillation (on xarelto and metoprolol), hx of alcoholism presenting with Atrial Fibrillation w/RVR. He was given IVF and given diltiazem bolus infusion and started on IV continuous infusion. 1. Afib w/RVR; hx of Afib 2. Hx of Alcoholism and now with early alcohol withdrawal syndrome 3. SIRS syndrome; tachycardia/leukocytosis; rule out sepsis -> now with fever and lactic acidosis 4. Hx of Type II DM 5. Acute alcohol withdrawal Plan -continue IV diltiazem in fusion -continue metoprolol PO -continue xarelto -[facility] alcohol withdrawal protocol -folate/thiamine -IVF -rechecked lactate elevated, will check cxr and UA; IVF; start empiric zosyn and vanco; repeat blood cx -SSI hold metformin -check TSH -echo; given alcohol hx; eval for alcohol induced cardiomyopathy Code Status-Full code DVT ppx-Xarelto Dispo-Anticipated discharge to home in 2-3 days
--- NOTE | 2021-01-31 11:44 | CR ---
Chest: Portable view of the chest was obtained. Comparison: Prior chest x-ray of 12/26/20. Left hemidiaphragm is elevated which is a stable finding. Lungs are clear with no acute parenchymal change. Heart size and mediastinum are within normal limits for portable technique. No acute osseous abnormality is appreciated. Impression: 1. Stable findings as noted above. 2. Nothing acute is seen. Diagnostic code #2
--- NOTE | 2021-01-31 11:45 | US ---
Right lower extremity deep venous ultrasound: Duplex and color Doppler evaluation was obtained of the right common femoral, proximal greater saphenous, superficial femoral, popliteal, posterior tibial and peroneal veins. Left common femoral vein was also evaluated. Findings: Normal phasic flow, augmentation and compression is seen. Impression: 1. No findings of deep venous thrombosis is seen within the right lower extremity or within the left common femoral vein. Diagnostic code #1 I agree with preliminary report from [facility], finalized on 01/30/21, 12:01 PM CDT, code 1
[2021-01-31] MEDS ORDERED: Vancomycin 2 GM in Sodium Chloride 0.9% 500 ML IV ONE (12:00)
[2021-01-31] MEDS ORDERED: Piperacillin/Tazobactam 4.5 GM in Sodium Chloride 0.9% 100 ML IV ONE (12:00)
[2021-01-31] MEDS: oxyCODONE 5 MG Tab PO PRN ×2 (12:44→18:37)
[2021-01-31] MEDS ORDERED: Lactated Ringers 1,000 ML IV SCH (17:45)
[2021-01-31] MEDS: Gabapentin 600 MG Tab PO SCH (20:12)
[2021-01-31] MEDS: atorvaSTATin 40 MG Tab PO SCH (20:12)
[2021-01-31] MEDS: Piperacillin/Tazobactam 4.5 GM in Sodium Chloride 0.9% 100 ML IV SCH (20:16)
[2021-01-31] MEDS: Vancomycin 1.75 GM in Sodium Chloride 0.9% 500 ML IV SCH (23:54)
[2021-02-01] MEDS: HYDROmorphone 0.5 MG/0.5 ML Syringe IVPUSH PRN (01:34)
[2021-02-01] MEDS: Piperacillin/Tazobactam 4.5 GM in Sodium Chloride 0.9% 100 ML IV SCH ×3 (03:59→19:30)
[2021-02-01] MEDS: Diltiazem 100 MG in Sodium Chloride 0.9% 100 ML IV SCH (05:19)
[2021-02-01] MEDS: Pantoprazole 40 MG Tab.CR PO SCH (05:26)
[2021-02-01] MEDS: LORazepam 2 MG/ML SDV IV SCH ×7 (06:35→23:51)
[2021-02-01] MEDS: Insulin Lispro 100 UNIT/ML 10 ML Vial SUBCUT SCH ×4 (06:59→22:11)
[2021-02-01] MEDS: chlordiazePOXIDE 25 MG Cap PO SCH ×2 (08:20→20:35)
[2021-02-01] MEDS: Thiamine 100 MG Tab PO SCH (08:21)
[2021-02-01] MEDS: Cholecalciferol (Vitamin D3) 5,000 UNIT Cap PO SCH (08:21)
[2021-02-01] MEDS: Folic Acid 1 MG Tab PO SCH (08:21)
[2021-02-01] MEDS: Rivaroxaban 10 MG Tab PO SCH (08:22)
[2021-02-01] MEDS: Metoprolol Tartrate 50 MG Tab PO SCH ×2 (08:22→20:37)
[2021-02-01] MEDS ORDERED: Haloperidol 1 MG Tab PO ONE ×2 (09:03→19:08)
[2021-02-01] MEDS ORDERED: Lactated Ringers 1,000 ML IV SCH (09:15)
[2021-02-01] MEDS ORDERED: Diltiazem IR 60 MG Tab PO SCH (11:22)
[2021-02-01] MEDS: LORazepam 1 MG Tab PO PRN (11:30)
[2021-02-01] MEDS: Vancomycin 1.75 GM in Sodium Chloride 0.9% 500 ML IV SCH ×2 (11:55→23:43)
[2021-02-01] MEDS: oxyCODONE 5 MG Tab PO PRN (15:14)
--- NOTE | 2021-02-01 15:43 | PCM.PN ---
- General Info Date of Service: 02/01/21 Admission Dx/Problem (Free Text): Admission Diagnosis/Problem Admission Diagnosis/Problem Atrial fibrillation [place] [facility] Admission History & Physical Patient Name: EDGARDO ARMSTRONG Date of : 1960 Patient Status: Inpatient Attending Provider: Walt Ellington Date: 01/30/21 13:40 Initialization Date: 01/30/21 13:40 H&P History of Present Illness - General Date of Service: 01/30/21 Admit Problem/Dx: Admission Diagnosis/Problem Admission Diagnosis/Problem Atrial fibrillation - History of Present Illness Initial Comments - Free Text/Narative: This is a 60M with PMHx of Type II DM, Atrial Fibrillation (on xarelto and metoprolol), hx of alcoholism presenting for right lower extremity pain. The patient continues to drink daily, his last drink of beer and liquor was last night. he has bruising on his right lower extremity but he is unsure of m echanism of injury. He denies falls, denies hitting his head. He presented to ED where he was noted to be in Atrial Fibrillation w/RVR. He was given IVF and given diltiazem bolus infusion and started on IV continuous infusion. He denies chest pain, chest pressure, palpitations. Denies nausea, vomiting, abdominal pain, fever. Endorses hx of alcohol withdrawal tremors. Past Medical History - Past Health History Medical/Surgical History: Denies Medical/Surgical History HEENT History: Reports: Cataract Cardiovascular History: Reports: Afib, High Cholesterol, Hypertension Other Cardiovascular History: hx/o a-fib/RVR Respiratory History: Reports: COPD, Other (See Below) Other Respiratory History: 07/24/16 admitted with pneumonia Gastrointestinal History: Reports: GERD Genitourinary History: Reports: Renal Calculus Musculoskeletal History: Reports: Fracture Other Musculoskeletal History: rigth foot fracture 20 yrs ago Neurological History: Reports: Other (See Below) Other Neuro History: With withdrawal for alcohol Psychiatric History: Reports: Addiction Other Psychiatric History: alcohol Endocrine/Metabolic History: Reports: Obesity/BMI 30+ Hematologic History: Reports: None Other Immunologic History: pt states that a doctor told him he had hep c once but his last check was ok Oncologic (Cancer) History: Reports: None Dermatologic History: Reports: None - Infectious Disease History Infectious Disease History: Reports: Hepatitis C, MRSA Other Infectious Disease History: Hep C per [facility] P[facility] hospitalist/[place], 06/2016. - Past Surgical History Musculoskeletal Surgical History: Reports: ORIF, Other (See Below) Social & Family History - Family History Family Medical History: Noncontributory Neurological: Reports: CVA Endocrine/Metabolic: Reports: Diabetes, type II Hematologic: Reports: Other (See Below) Other Hematologic Family History: hepatitias c Immunologic: Reports: None Oncologic: Reports: Leukemia - Tobacco Use Smoking Status *Q: Former Smoker Used Tobacco, but Quit: Yes Month/Year Tobacco Last Used: 2017 - Caffeine Use Caffeine Use: Reports: None - Alcohol Use Date of Last Drink: 07/25/19 Time of Last Drink: 01:00 - Recreational Drug Use Recreational Drug Use: No - Living Situation & Occupation Living situation: Reports: , Alone Occupation: Unemployed Right Leg Pain Score (Numeric/FACES): 10 - Related Data Allergies/Adverse Reactions: Allergies Allergy/AdvReac Type Severity Reaction Status Date / Time No Known Allergies Allergy Verified 01/30/21 09:49 Home Medications: Home Meds Omeprazole 20 mg PO DAILY 07/07/16 [History] Folic Acid 1 mg PO DAILY 09/26/17 [History] Metoprolol Tartrate 75 mg PO BID 09/26/17 [History] Thiamine [Vitamin B-1] 200 mg PO DAILY 09/26/17 [History] Cholecalciferol (Vitamin D3) [Vitamin D] 5,000 unit PO DAILY 01/09/19 [History] Diltiazem [Dilacor XR] 240 mg PO DAILY 01/09/19 [History] Magnesium Oxide 420 mg PO BID 01/09/19 [History] Multivitamin [Multivitamins] 1 each PO DAILY 01/09/19 [History] Rivaroxaban [Xarelto] 20 mg PO DAILY 01/09/19 [History] atorvaSTATin [Lipitor] 40 mg PO BEDTIME 01/09/19 [History] metFORMIN HCl [Metformin HCl] 500 mg PO BID 07/25/19 [History] Gabapentin [Neurontin] 600 mg PO BEDTIME #30 tab 11/20/20 [Rx] Past Medical History - Past Health History Medical/Surgical History: Denies Medical/Surgical History HEENT History: Reports: Cataract Cardiovascular History: Reports: Afib, High Cholesterol, Hypertension Other Cardiovascular History: hx/o a-fib/RVR Respiratory History: Reports: COPD Other Respiratory History: 07/24/16 admitted with pneumonia Gastrointestinal History: Reports: GERD Genitourinary History: Reports: Renal Calculus Musculoskeletal History: Reports: Fracture Other Musculoskeletal History: rigth foot fracture 20 yrs ago; Fx of L wrist 2018 Neurological History: Reports: Other (See Below) Other Neuro History: seizures with ETOH withdrawal Psychiatric History: Reports: Addiction Other Psychiatric History: alcohol Endocrine/Metabolic History: Reports: Diabetes, Type II, Obesity/BMI 30+ Hematologic History: Reports: Anticoagulation Therapy Other Immunologic History: pt states that a doctor told him he had hep c once but his last check was ok Oncologic (Cancer) History: Reports: None Dermatologic History: Reports: None - Infectious Disease History Infectious Disease History: Reports: Hepatitis C, MRSA Other Infectious Disease History: Hep C per [facility] Ponce hospitalist/[place], 06/2016. - Past Surgical History Musculoskeletal Surgical History: Reports: ORIF, Other (See Below) Other Musculoskeletal Surgeries/Procedures:: right toe -hammer toe surgery, left wrist surgery; BUNIONECTOMY Social & Family History - Family History Family Medical History: No Pertinent Family History Neurological: Reports: CVA Endocrine/Metabolic: Reports: Diabetes, type II Hematologic: Reports: Other (See Below) Other Hematologic Family History: hepatitias c Immunologic: Reports: None Oncologic: Reports: Leukemia - Tobacco Use Tobacco Use Status *Q: Never Tobacco User - Caffeine Use Caffeine Use: Reports: Tea - Recreational Drug Use Recreational Drug Use: No - Living Situation & Occupation Living situation: Reports: , Alone Occupation: Unemployed H&P Review of Systems - Review of Systems: Review Of Systems: Comprehensive ROS is negative, except as noted in HPI. Exam - Exam Exam: See Below - Vital Signs Vital Signs: Last Vital Signs Temp 97 F 01/30/21 13:26 Pulse 117 H 01/30/21 13:26 Resp 16 01/30/21 13:26 BP 104/79 01/30/21 13:26 Pulse Ox 94 L 01/30/21 13:26 Weight: 234 lb 8 oz - Exam Physical Exam Comments:: Gen: no acute distress HEENT: NCAT EOMI MMM Neck: supple CV: Tachycardic, irregularly irregular; normal s1 s2 Lungs: CTAB Abd: Soft, nt, nd Neuro: AOX3, CN intact, nonfocal screening exam Psych: appropriate affect MSK: age appropriate muscle mass Ext: Bruising of right lower extremity - Patient Data Lab Results Last 24 hrs: Laboratory Results - last 24 hr 01/30/21 01/30/21 01/30/21 Range/Units 10:45 10:55 10:55 WBC 10.87 H (4.23-9.07) K/mm3 RBC 4.61 L (4.63-6.08) M/mm3 Hgb 13.6 L (13.7-17.5) gm/dl Hct 40.8 (40.1-51.0) % MCV 88.5 (79.0-92.2) fl MCH 29.5 (25.7-32.2) pg MCHC 33.3 (32.2-35.5) g/dl RDW Std Deviation 48.8 H (35.1-43.9) fL Plt Count 192 (163-337) K/mm3 MPV 8.6 L (9.4-12.3) fl Neut % (Auto) 77.0 H (34.0-67.9) % Lymph % (Auto) 10.9 L (21.8-53.1) % [place] % (Auto) 9.7 (5.3-12.2) % Eos % (Auto) 1.5 (0.8-7.0) Baso % (Auto) 0.3 (0.1-1.2) % Neut # (Auto) 8.37 H (1.78-5.38) K/mm3 Lymph # (Auto) 1.19 L (1.32-3.57) K/mm3 [place] # (Auto) 1.05 H (0.30-0.82) K/mm3 Eos # (Auto) 0.16 (0.04-0.54) K/mm3 Baso # (Auto) 0.03 (0.01-0.08) K/mm3 Sodium 136 (136-145) mEq/L Potassium 3.9 (3.5-5.1) mEq/L Chloride 98 (98-107) mEq/L Carbon Dioxide 28 (21-32) mEq/L Anion Gap 13.9 (5-15) BUN 12 (7-18) mg/dL Creatinine 1.3 (0.7-1.3) mg/dL Est Cr Clr Drug Dosing 57.73 mL/min Estimated GFR (MDRD) 56 (>60) mL/min BUN/Creatinine Ratio 9.2 L (14-18) Glucose 121 H (70-99) mg/dL Calcium 8.4 L (8.5-10.1) mg/dL Magnesium 1.4 L (1.8-2.4) mg/dL Total Bilirubin 0.8 (0.2-1.0) mg/dL AST 38 H (15-37) U/L ALT 45 (16-63) U/L Alkaline Phosphatase 66 (46-116) U/L Troponin I < 0.017 (0.00-0.056) ng/mL Total Protein 6.8 (6.4-8.2) g/dl Albumin 3.2 L (3.4-5.0) g/dl Globulin 3.6 gm/dL Albumin/Globulin Ratio 0.9 L (1-2) Ethyl Alcohol (0.00) gm% SARS-CoV-2 RNA (ISABELLA) Negative (NEGATIVE) 01/30/21 Range/Units 10:55 WBC (4.23-9.07) K/mm3 RBC (4.63-6.08) M/mm3 Hgb (13.7-17.5) gm/dl Hct (40.1-51.0) % MCV (79.0-92.2) fl MCH (25.7-32.2) pg MCHC (32.2-35.5) g/dl RDW Std Deviation (35.1-43.9) fL Plt Count (163-337) K/mm3 MPV (9.4-12.3) fl Neut % (Auto) (34.0-67.9) % Lymph % (Auto) (21.8-53.1) % [place] % (Auto) (5.3-12.2) % Eos % (Auto) (0.8-7.0) Baso % (Auto) (0.1-1.2) % Neut # (Auto) (1.78-5.38) K/mm3 Lymph # (Auto) (1.32-3.57) K/mm3 [place] # (Auto) (0.30-0.82) K/mm3 Eos # (Auto) (0.04-0.54) K/mm3 Baso # (Auto) (0.01-0.08) K/mm3 Sodium (136-145) mEq/L Potassium (3.5-5.1) mEq/L Chloride (98-107) mEq/L Carbon Dioxide (21-32) mEq/L Anion Gap (5-15) BUN (7-18) mg/dL Creatinine (0.7-1.3) mg/dL Est Cr Clr Drug Dosing mL/min Estimated GFR (MDRD) (>60) mL/min BUN/Creatinine Ratio (14-18) Glucose (70-99) mg/dL Calcium (8.5-10.1) mg/dL Magnesium (1.8-2.4) mg/dL Total Bilirubin (0.2-1.0) mg/dL AST (15-37) U/L ALT (16-63) U/L Alkaline Phosphatase (46-116) U/L Troponin I (0.00-0.056) ng/mL Total Protein (6.4-8.2) g/dl Albumin (3.4-5.0) g/dl Globulin gm/dL Albumin/Globulin Ratio (1-2) Ethyl Alcohol 0.00 (0.00) gm% SARS-CoV-2 RNA (ISABELLA) (NEGATIVE) Result Diagrams: 01/30/21 10:55 01/30/21 10:55 Sepsis Event Note - Evaluation Sepsis Screening Result: No Definite Risk - Focused Exam Vital Signs: Vital Signs Temp Pulse Pulse Resp BP Pulse Ox 01/30/21 13:26 97 F 117 H 16 104/79 94 L 01/30/21 09:45 97.6 F 153 H 20 140/110 H 96 *Q Meaningful Use (ADM) - VTE *Q VTE Criteria *Q: 2 Problem List Initiated/Reviewed/Updated: Yes Orders Last 24hrs: Active Orders 24 hr Category Date Time Status Patient Status [ADT] Routine ADT 01/30/21 13:33 Ordered CIWAA Assessment [RC] Q15M Care 01/30/21 13:37 Ordered CIWAA Assessment [RC] Q1H Care 01/30/21 13:37 Ordered CIWAA Assessment [RC] Q30M Care 01/30/21 13:37 Ordered CIWAA Assessment [RC] Q4H Care 01/30/21 13:37 Ordered Cardiac Monitoring [RC] . DIRECTED Care 01/30/21 09:59 Active Cardiac Monitoring [RC] CONTINUOUS Care 01/30/21 13:33 Ordered EKG 12 Lead [EKG Documentation Completion] [RC] ROUTINE Care 01/30/21 09:55 Active Intake and Output [RC] QSHIFT Care 01/30/21 13:33 Ordered Notify Provider Vital Signs [RC] ASDIRECTED Care 01/30/21 13:34 Ordered Notify Provider [RC] PRN Care 01/30/21 13:37 Ordered Oxygen Therapy [RC] PRN Care 01/30/21 13:33 Ordered Peripheral IV Care [RC] . DIRECTED Care 01/30/21 10:00 Active Pulse Oximetry [RC] CONTINUOUS Care 01/30/21 13:33 Ordered Up ad Sharon [RC] ASDIRECTED Care 01/30/21 13:32 Ordered VTE/DVT Education [RC] PER UNIT ROUTINE Care 01/30/21 13:33 Ordered Vital Signs [RC] Q4H Care 01/30/21 13:33 Ordered Regular Diet [DIET] Diet 01/30/21 Dinner Ordered CXR [Chest 1V Frontal] [CR] Routine Exams 01/30/21 13:31 Ordered VL Duplex Lwr Ext Veins Ltd Rt [US] Stat Exams 01/30/21 10:00 Taken BASIC METABOLIC PANEL,BMP [CHEM] DAILY Lab 01/31/21 06:00 Ordered BASIC METABOLIC PANEL,BMP [CHEM] DAILY Lab 02/01/21 06:00 Ordered CBC WITH AUTO DIFF [HEME] DAILY Lab 01/31/21 06:00 Ordered CBC WITH AUTO DIFF [HEME] DAILY Lab 02/01/21 06:00 Ordered CULTURE BLOOD [BC] Stat Lab 01/30/21 13:30 Ordered CULTURE BLOOD [BC] Stat Lab 01/30/21 13:30 Ordered LACTATE SEPSIS W/ REFLEX [CHEM] Stat Lab 01/30/21 13:30 Ordered MAGNESIUM [CHEM] AM Lab 01/31/21 05:11 Ordered UA RFX NELSON AND CULT IF INDIC [URIN] Routine Lab 01/30/21 13:30 Ordered Acetaminophen [TylenoL] Med 01/30/21 13:32 Ordered 650 mg PO Q4H PRN Diltiazem [Cardizem] 100 mg Med 01/30/21 10:15 Active Sodium Chloride 0.9% [Normal Saline] 100 ml IV TITRATE Folic Acid Med 01/30/21 13:45 Ordered 1 mg PO DAILY LORazepam [Ativan] Med 01/30/21 13:45 Ordered See Protocol IV ASDIRECTED Lactated Ringers [Ringers, Lactated] 1,000 ml Med 01/30/21 13:45 Ordered IV ASDIRECTED Magnesium Sulfate/Water [Magnesium Sulfate in Water 2 Med 01/30/21 13:29 Ordered GM/50 ML] 2 gm Premix Bag 1 bag IV ONETIME Multivitamins [Tab-A-Tanya] Med 01/30/21 13:37 Once 1 tab PO ONETIME ONE Ondansetron [Zofran] Med 01/30/21 13:32 Ordered 4 mg IV Q4H PRN Sodium Chloride 0.9% [Normal Saline] 1,000 ml Med 01/30/21 10:00 Active IV ASDIRECTED Sodium Chloride 0.9% [Saline Flush] Med 01/30/21 09:59 Active 10 ml FLUSH ASDIRECTED PRN Thiamine [Vitamin B-1] Med 01/30/21 13:45 Ordered 100 mg PO DAILY oxyCODONE Med 01/30/21 13:32 Ordered 5 mg PO Q4H PRN Blood Culture x2 Reflex Set [OM.PC] Stat Oth 01/30/21 13:30 Ordered Peripheral IV Insertion Adult [OM.PC] Stat Oth 01/30/21 09:59 Ordered Resuscitation Status Routine Resus Stat 01/30/21 13:32 Ordered Medication Orders Acetaminophen (Acetaminophen 325 Mg Tab) 650 mg PO Q4H PRN PRN Reason: Pain (Mild 1-3)/fever Folic Acid (Folic Acid 1 Mg Tab) 1 mg PO DAILY DIAMANTE Stop: 02/01/21 09:01 Diltiazem HCl 100 mg/ Sodium (Chloride) 100 mls @ 10 mls/hr IV TITRATE DIAMANTE; Protocol Last Titration: 01/30/21 12:08 Dose: 15 mg/hr, 15 mls/hr Documented by: Admin: 01/30/21 10:20 Dose: 10 mg/hr, 10 mls/hr Documented by: EVGENY Sodium Chloride (Normal Saline) 1,000 mls @ 125 mls/hr IV ASDIRECTED DIAMANTE Last Infusion: 01/30/21 12:08 Dose: 125 mls/hr Documented by: Infusion: 01/30/21 11:00 Dose: 0 mls/hr Documented by: Admin: 01/30/21 10:20 Dose: 125 mls/hr Documented by: EVGENY Magnesium Sulfate 2 gm/ Premix 50 mls @ 25 mls/hr IV ONETIME ONE Stop: 01/30/21 15:28 Lactated Ringer's (Ringers, Lactated) 1,000 mls @ 100 mls/hr IV ASDIRECTED DIAMANTE Lorazepam (Lorazepam 2 Mg/Ml Sdv) 0 mg IV ASDIRECTED DIAMANTE; Protocol Multivitamins/Minerals/Vitamin C (Multivitamin Tab) 1 tab PO ONETIME ONE Stop: 01/30/21 13:38 Ondansetron HCl (Ondansetron 4 Mg/2 Ml Sdv) 4 mg IV Q4H PRN PRN Reason: Nausea/Vomiting Oxycodone HCl (Oxycodone 5 Mg Tab) 5 mg PO Q4H PRN PRN Reason: Pain (moderate 4-6) Sodium Chloride (Sodium Chloride 0.9% 10 Ml Syringe) 10 ml FLUSH ASDIRECTED PRN PRN Reason: Keep Vein Open Last Admin: 01/30/21 10:32 Dose: 10 ml Documented by: EVGENY Thiamine HCl (Thiamine 100 Mg Tab) 100 mg PO DAILY DIAMANTE Assessment/Plan Comment:: Assessment: This is a 60M with PMHx of Type II DM, Atrial Fibrillation (on xarelto and metoprolol), hx of alcoholism presenting with Atrial Fibrillation w/RVR. He was given IVF and given diltiazem bolus infusion and started on IV continuous infusion. 1. Afib w/RVR; hx of Afib 2. Hx of Alcoholism and now with early alcohol withdrawal syndrome 3. SIRS syndrome; tachycardia/leukocytosis 4. Hx of Type II DM Plan -admit to inpatient -continue IV diltiazem in fusion -start metoprolol PO -continue xarelto -CIWA alcohol withdrawal protocol -folate/thiamine -IVF -check CXR/lactate/UA -SSI hold metformin -check TSH -echo; given alcohol hx; eval for alcohol induced cardiomyopathy Code Status-Full code DVT ppx-Xarelto Dispo-Anticipated discharge to home in 2-3 days - Mortality Measure Prognosis:: Good Subjective Update: 02/01/21 afebrile/ heart rate 100-150 on cardizem drip. beta maday given this am only . b.p 150/87 slept fair/ ciwas high 16-20. needs freq reorientation and assistance. mildly bossy but can be redirected. trying to get out of bed. i/os reviewed. weight increased. p.e. mildly combative. cor irreg irreg. nad 2/6 syst murmur with prothetic click over t 2 interspace. no jvd. lungs clear equal. abd benign. no spleen noted.no liver or ascites. m.s normal . skin normal . neuro: confused and wants bed bar down . tremor mild . lab reviewed. chest xray reviewed lll infitrate. on zosyn and vanco assess: etoh widthdrawl mod to severe and starated librium as requiring alot of lorazepam. consider haldol 1-2 mg if does not respond favorably . d.t signs moderate. ciwas high . lll pneumonia cont current treatment. chf mild to moiderate an monitor cv satus. b.p high but better. afib with rvr and aortic proth. valve. awaiting echo but cont current treatment . no obvious increased chf signs. chf controlled. crf stable and gfr mildly decreased. acute ami ruled out. boh Functional Status: Reports: Pain Controlled - Review of Systems General: Reports: Weakness HEENT: Reports: No Symptoms Pulmonary: Reports: No Symptoms Cardiovascular: Reports: No Symptoms, Palpitations Gastrointestinal: Reports: No Symptoms Genitourinary: Reports: No Symptoms Musculoskeletal: Reports: No Symptoms Skin: Reports: No Symptoms Neurological: Reports: No Symptoms Psychiatric: Reports: No Symptoms, Confusion - Patient Data Vitals - Most Recent: Last Vital Signs Temp 36.8 C 02/01/21 12:00 Pulse 87 02/01/21 15:00 Resp 29 H 02/01/21 15:00 BP 111/76 02/01/21 15:00 Pulse Ox 90 L 02/01/21 15:00 Weight - Most Recent: 112.945 kg I&O - Last 24 Hours: Intake & Output 02/01/21 02/01/21 02/01/21 06:59 14:59 22:59 Intake Total 1865 320 Output Total 500 1400 Balance 1365 -1080 Lab Results Last 24 Hours: Laboratory Results - last 24 hr 01/31/21 01/31/21 02/01/21 Range/Units 17:29 21:30 05:20 WBC 9.19 H (4.23-9.07) K/mm3 RBC 3.76 L (4.63-6.08) M/mm3 Hgb 11.2 L (13.7-17.5) gm/dl Hct 34.4 L (40.1-51.0) % MCV 91.5 (79.0-92.2) fl MCH 29.8 (25.7-32.2) pg MCHC 32.6 (32.2-35.5) g/dl RDW Std Deviation 51.8 H (35.1-43.9) fL Plt Count 135 L (163-337) K/mm3 MPV 9.3 L (9.4-12.3) fl Neut % (Auto) 67.8 (34.0-67.9) % Lymph % (Auto) 17.4 L (21.8-53.1) % [place] % (Auto) 12.2 (5.3-12.2) % Eos % (Auto) 2.2 (0.8-7.0) Baso % (Auto) 0.1 (0.1-1.2) % Neut # (Auto) 6.23 H (1.78-5.38) K/mm3 Lymph # (Auto) 1.60 (1.32-3.57) K/mm3 [place] # (Auto) 1.12 H (0.30-0.82) K/mm3 Eos # (Auto) 0.20 (0.04-0.54) K/mm3 Baso # (Auto) 0.01 (0.01-0.08) K/mm3 Sodium (136-145) mEq/L Potassium (3.5-5.1) mEq/L Chloride (98-107) mEq/L Carbon Dioxide (21-32) mEq/L Anion Gap (5-15) BUN (7-18) mg/dL Creatinine (0.7-1.3) mg/dL Est Cr Clr Drug Dosing mL/min Estimated GFR (MDRD) (>60) mL/min BUN/Creatinine Ratio (14-18) Glucose (70-99) mg/dL POC Glucose 111 H 102 H (70-99) mg/dL Calcium (8.5-10.1) mg/dL 02/01/21 02/01/21 02/01/21 Range/Units 05:20 06:12 11:37 WBC (4.23-9.07) K/mm3 RBC (4.63-6.08) M/mm3 Hgb (13.7-17.5) gm/dl Hct (40.1-51.0) % MCV (79.0-92.2) fl MCH (25.7-32.2) pg MCHC (32.2-35.5) g/dl RDW Std Deviation (35.1-43.9) fL Plt Count (163-337) K/mm3 MPV (9.4-12.3) fl Neut % (Auto) (34.0-67.9) % Lymph % (Auto) (21.8-53.1) % [place] % (Auto) (5.3-12.2) % Eos % (Auto) (0.8-7.0) Baso % (Auto) (0.1-1.2) % Neut # (Auto) (1.78-5.38) K/mm3 Lymph # (Auto) (1.32-3.57) K/mm3 [place] # (Auto) (0.30-0.82) K/mm3 Eos # (Auto) (0.04-0.54) K/mm3 Baso # (Auto) (0.01-0.08) K/mm3 Sodium 138 (136-145) mEq/L Potassium 3.9 (3.5-5.1) mEq/L Chloride 103 (98-107) mEq/L Carbon Dioxide 26 (21-32) mEq/L Anion Gap 12.9 (5-15) BUN 7 (7-18) mg/dL Creatinine 0.8 (0.7-1.3) mg/dL Est Cr Clr Drug Dosing 93.81 mL/min Estimated GFR (MDRD) > 60 (>60) mL/min BUN/Creatinine Ratio 8.8 L (14-18) Glucose 84 (70-99) mg/dL POC Glucose 82 118 H (70-99) mg/dL Calcium 8.2 L (8.5-10.1) mg/dL Nelson Results Last 24 Hours: Microbiology 01/30/21 14:00 Aerobic Blood Culture - Preliminary Blood - Venous - Lab Draw NO GROWTH AFTER 2 DAYS Anaerobic Blood Culture - Preliminary NO GROWTH AFTER 2 DAYS 01/30/21 13:57 Aerobic Blood Culture - Preliminary Blood - Venous NO GROWTH AFTER 2 DAYS Anaerobic Blood Culture - Preliminary NO GROWTH AFTER 2 DAYS 01/31/21 08:25 Aerobic Blood Culture - Preliminary Blood - Venous - Lab Draw NO GROWTH AFTER 1 DAY Anaerobic Blood Culture - Preliminary NO GROWTH AFTER 1 DAY 01/31/21 07:55 Aerobic Blood Culture - Preliminary Blood - Venous NO GROWTH AFTER 1 DAY Anaerobic Blood Culture - Preliminary NO GROWTH AFTER 1 DAY Med Orders - Current: Current Medications Acetaminophen (Acetaminophen 325 Mg Tab) 650 mg PO Q4H PRN PRN Reason: Pain (Mild 1-3)/fever Last Admin: 01/31/21 10:20 Dose: 650 mg Documented by: Atorvastatin Calcium (Atorvastatin 40 Mg Tab) 40 mg PO BEDTIME [facility] Last Admin: 01/31/21 20:12 Dose: 40 mg Documented by: Chlordiazepoxide HCl (Chlordiazepoxide 25 Mg Cap) 50 mg PO BID [facility] Last Admin: 02/01/21 08:20 Dose: 50 mg Documented by: Cholecalciferol (Cholecalciferol (Vitamin D3) 5,000 Unit Cap) 5,000 unit PO DAILY DIAMANTE Last Admin: 02/01/21 08:21 Dose: 5,000 unit Documented by: Diltiazem HCl (Diltiazem Ir 60 Mg Tab) 120 mg PO Q8H DIAMANTE Gabapentin (Gabapentin 600 Mg Tab) 600 mg PO BEDTIME [facility] Last Admin: 01/31/21 20:12 Dose: 600 mg Documented by: Hydromorphone HCl (Hydromorphone 0.5 Mg/0.5 Ml Syringe) 0.5 mg IVPUSH Q1H PRN PRN Reason: Pain (moderate 4-6) Last Admin: 02/01/21 01:34 Dose: 0.5 mg Documented by: Diltiazem HCl 100 mg/ Sodium (Chloride) 100 mls @ 10 mls/hr IV TITRATE DIAMANTE; Protocol Last Titration: 02/01/21 13:52 Dose: 0 mg/hr, 0 mls/hr Documented by: Piperacillin Sod/Tazobactam (Sod 4.5 gm/ Sodium Chloride) 100 mls @ 25 mls/hr IV Q8H [facility] Last Admin: 02/01/21 11:38 Dose: 25 mls/hr Documented by: Vancomycin HCl 1.75 gm/ Sodium (Chloride) 500 mls @ 250 mls/hr IV Q12H [facility] Last Admin: 02/01/21 11:55 Dose: 250 mls/hr Documented by: Lactated Ringer's (Ringers, Lactated) 1,000 mls @ 20 mls/hr IV ASDIRECTED [facility] Insulin Human Lispro (Insulin Lispro 100 Unit/Ml 10 Ml Vial) 0 unit SUBCUT QIDACANDBED [facility]; Protocol Last Admin: 02/01/21 11:55 Dose: Not Given Documented by: Lorazepam (Lorazepam 2 Mg/Ml Sdv) 0 mg IV ASDIRECTED [facility]; Protocol Last Admin: 02/01/21 15:14 Dose: 2 mg Documented by: Lorazepam (Lorazepam 1 Mg Tab) 1 mg PO Q1H PRN PRN Reason: Withdrawal Symptoms Last Admin: 01/31/21 18:12 Dose: 1 mg Documented by: Metoprolol Tartrate (Metoprolol Tartrate 50 Mg Tab) 50 mg PO Q12HR [facility] Last Admin: 02/01/21 08:22 Dose: 50 mg Documented by: Ondansetron HCl (Ondansetron 4 Mg/2 Ml Sdv) 4 mg IV Q4H PRN PRN Reason: Nausea/Vomiting Oxycodone HCl (Oxycodone 5 Mg Tab) 5 mg PO Q4H PRN PRN Reason: Pain (moderate 4-6) Last Admin: 02/01/21 15:14 Dose: 5 mg Documented by: Pantoprazole Sodium (Pantoprazole 40 Mg Tab.Cr) 40 mg PO ACBREAKFAST [facility] Last Admin: 02/01/21 05:26 Dose: 40 mg Documented by: Rivaroxaban (Rivaroxaban 10 Mg Tab) 20 mg PO DAILY [facility] Last Admin: 02/01/21 08:22 Dose: 20 mg Documented by: Sodium Chloride (Sodium Chloride 0.9% 10 Ml Syringe) 10 ml FLUSH ASDIRECTED PRN PRN Reason: Keep Vein Open Last Admin: 01/30/21 10:32 Dose: 10 ml Documented by: Thiamine HCl (Thiamine 100 Mg Tab) 100 mg PO DAILY [facility] Last Admin: 02/01/21 08:21 Dose: 100 mg Documented by: Trazodone HCl (Trazodone 50 Mg Tab) 50 mg PO BEDTIME PRN PRN Reason: Sleep Vancomycin HCl (Pharmacy To Dose - Vancomycin) 1 dose .XX ASDIRECTED PRN PRN Reason: RX TO DOSE VANCO Discontinued Medications Cholecalciferol (Cholecalciferol (Vitamin D3) 5,000 Unit Tab) 5,000 unit PO DAILY [facility] Last Admin: 01/30/21 14:14 Dose: Not Given Documented by: Diltiazem HCl (Diltiazem 50 Mg/10 Ml Sdv) 10 mg IVPUSH ONETIME ONE Stop: 01/30/21 10:01 Last Admin: 01/30/21 10:07 Dose: 10 mg Documented by: Diltiazem HCl (Diltiazem Ir 60 Mg Tab) 120 mg PO TID [facility] Last Admin: 02/01/21 11:40 Dose: 120 mg Documented by: Folic Acid (Folic Acid 1 Mg Tab) 1 mg PO DAILY [facility] Stop: 02/01/21 09:01 Last Admin: 02/01/21 08:21 Dose: 1 mg Documented by: Haloperidol (Haloperidol 1 Mg Tab) 2 mg PO ONETIME ONE Stop: 02/01/21 09:04 Hydromorphone HCl (Hydromorphone 1 Mg/Ml Syringe) 1 mg IVPUSH ONETIME ONE Stop: 01/30/21 10:01 Last Admin: 01/30/21 10:07 Dose: 1 mg Documented by: Hydromorphone HCl (Hydromorphone 0.5 Mg/0.5 Ml Syringe) 0.5 mg IVPUSH ONETIME ONE Stop: 01/30/21 12:01 Last Admin: 01/30/21 12:07 Dose: 0.5 mg Documented by: Sodium Chloride (Normal Saline) 1,000 mls @ 125 mls/hr IV ASDIRECTED [facility] Last Infusion: 01/30/21 12:08 Dose: 125 mls/hr Documented by: Sodium Chloride (Normal Saline) 1,000 mls @ 999 mls/hr IV ONETIME ONE Stop: 01/30/21 12:00 Last Admin: 01/30/21 11:00 Dose: 999 mls/hr Documented by: Magnesium Sulfate 2 gm/ Premix 50 mls @ 25 mls/hr IV ONETIME ONE Stop: 01/30/21 15:28 Last Admin: 01/30/21 14:02 Dose: 25 mls/hr Documented by: Lactated Ringer's (Ringers, Lactated) 1,000 mls @ 100 mls/hr IV ASDIRECTED [facility] Last Infusion: 01/31/21 17:35 Dose: 75 mls/hr Documented by: Lactated Ringer's (Ringers, Lactated) 1,000 mls @ 1,000 mls/hr IV .BOLUS ONE Stop: 01/31/21 09:44 Last Admin: 01/31/21 08:54 Dose: 1,000 mls/hr Documented by: Lactated Ringer's (Ringers, Lactated) 1,000 mls @ 1,000 mls/hr IV .BOLUS ONE Stop: 01/31/21 10:44 Last Admin: 01/31/21 10:10 Dose: 1,000 mls/hr Documented by: Piperacillin Sod/Tazobactam (Sod 4.5 gm/ Sodium Chloride) 100 mls @ 200 mls/hr IV ONETIME ONE Stop: 01/31/21 12:29 Last Admin: 01/31/21 11:58 Dose: 200 mls/hr Documented by: Vancomycin HCl 2 gm/ Sodium (Chloride) 500 mls @ 250 mls/hr IV ONETIME ONE Stop: 01/31/21 13:59 Last Admin: 01/31/21 12:38 Dose: 250 mls/hr Documented by: Lactated Ringer's (Ringers, Lactated) 1,000 mls @ 75 [facility]ls[facility] Infusion: 02/01/21 09:13 Dose: 20 mls/hr Documented by: Magnesium Sulfate/Dextrose 1 (gm/ Premix) 100 mls @ 100 mls/hr IV ONETIME ONE Stop: 02/01/21 10:29 Last Admin: 02/01/21 09:18 Dose: 100 mls/hr Documented by: Metoprolol Succinate (Metoprolol Succinate 50 Mg Tab.Er) 50 mg PO DAILY [facility] Last Admin: 01/31/21 07:24 Dose: 50 mg Documented by: Multivitamins/Minerals/Vitamin C (Multivitamin Tab) 1 tab PO ONETIME ONE Stop: 01/30/21 13:38 Last Admin: 01/30/21 14:02 Dose: 1 tab Documented by: - Exam Quality Assessment: Supplemental Oxygen General: Alert, Oriented HEENT: Pupils Equal, Pupils Reactive, EOMI, Mucous Membr. Moist/[place] Neck: Supple Lungs: Clear to Auscultation, Normal Respiratory Effort Cardiovascular: Regular Rate, Regular Rhythm GI/Abdominal Exam: Normal Bowel Sounds, Soft, Non-Tender, No Organomegaly, No Distention, No Abnormal Bruit, No Mass, Pelvis Stable (Male) Exam: No Hernia, Normal Inspection. No: Normal Prostate, Circumcised Back Exam: Normal Inspection, Full Range of Motion Extremities: Normal Inspection, Normal Range of Motion, Non-Tender, No Pedal Edema, Normal Capillary Refill Peripheral Pulses: 1+: Carotid (L), Carotid (R) Skin: Warm, Dry, Intact Wound/Incisions: Healing Well Neurological: No New Focal Deficit Psy/Mental Status: Alert, Withdrawal Symptoms. No: Normal Affect, Normal Mood - Patient Data Lab Results Last 24 hrs: Laboratory Results - last 24 hr 01/31/21 01/31/21 02/01/21 Range/Units 17:29 21:30 05:20 WBC 9.19 H (4.23-9.07) K/mm3 RBC 3.76 L (4.63-6.08) M/mm3 Hgb 11.2 L (13.7-17.5) gm/dl Hct 34.4 L (40.1-51.0) % MCV 91.5 (79.0-92.2) fl MCH 29.8 (25.7-32.2) pg MCHC 32.6 (32.2-35.5) g/dl RDW Std Deviation 51.8 H (35.1-43.9) fL Plt Count 135 L (163-337) K/mm3 MPV 9.3 L (9.4-12.3) fl Neut % (Auto) 67.8 (34.0-67.9) % Lymph % (Auto) 17.4 L (21.8-53.1) % [place] % (Auto) 12.2 (5.3-12.2) % Eos % (Auto) 2.2 (0.8-7.0) Baso % (Auto) 0.1 (0.1-1.2) % Neut # (Auto) 6.23 H (1.78-5.38) K/mm3 Lymph # (Auto) 1.60 (1.32-3.57) K/mm3 [place] # (Auto) 1.12 H (0.30-0.82) K/mm3 Eos # (Auto) 0.20 (0.04-0.54) K/mm3 Baso # (Auto) 0.01 (0.01-0.08) K/mm3 Sodium (136-145) mEq/L Potassium (3.5-5.1) mEq/L Chloride (98-107) mEq/L Carbon Dioxide (21-32) mEq/L Anion Gap (5-15) BUN (7-18) mg/dL Creatinine (0.7-1.3) mg/dL Est Cr Clr Drug Dosing mL/min Estimated GFR (MDRD) (>60) mL/min BUN/Creatinine Ratio (14-18) Glucose (70-99) mg/dL POC Glucose 111 H 102 H (70-99) mg/dL Calcium (8.5-10.1) mg/dL 02/01/21 02/01/21 02/01/21 Range/Units 05:20 06:12 11:37 WBC (4.23-9.07) K/mm3 RBC (4.63-6.08) M/mm3 Hgb (13.7-17.5) gm/dl Hct (40.1-51.0) % MCV (79.0-92.2) fl MCH (25.7-32.2) pg MCHC (32.2-35.5) g/dl RDW Std Deviation (35.1-43.9) fL Plt Count (163-337) K/mm3 MPV (9.4-12.3) fl Neut % (Auto) (34.0-67.9) % Lymph % (Auto) (21.8-53.1) % [place] % (Auto) (5.3-12.2) % Eos % (Auto) (0.8-7.0) Baso % (Auto) (0.1-1.2) % Neut # (Auto) (1.78-5.38) K/mm3 Lymph # (Auto) (1.32-3.57) K/mm3 [place] # (Auto) (0.30-0.82) K/mm3 Eos # (Auto) (0.04-0.54) K/mm3 Baso # (Auto) (0.01-0.08) K/mm3 Sodium 138 (136-145) mEq/L Potassium 3.9 (3.5-5.1) mEq/L Chloride 103 (98-107) mEq/L Carbon Dioxide 26 (21-32) mEq/L Anion Gap 12.9 (5-15) BUN 7 (7-18) mg/dL Creatinine 0.8 (0.7-1.3) mg/dL Est Cr Clr Drug Dosing 93.81 mL/min Estimated GFR (MDRD) > 60 (>60) mL/min BUN/Creatinine Ratio 8.8 L (14-18) Glucose 84 (70-99) mg/dL POC Glucose 82 118 H (70-99) mg/dL Calcium 8.2 L (8.5-10.1) mg/dL Result Diagrams: 02/01/21 05:20 02/01/21 05:20 Nelson Results Last 24 hrs: Microbiology 01/30/21 14:00 Aerobic Blood Culture - Preliminary Blood - Venous - Lab Draw NO GROWTH AFTER 2 DAYS Anaerobic Blood Culture - Preliminary NO GROWTH AFTER 2 DAYS 01/30/21 13:57 Aerobic Blood Culture - Preliminary Blood - Venous NO GROWTH AFTER 2 DAYS Anaerobic Blood Culture - Preliminary NO GROWTH AFTER 2 DAYS 01/31/21 08:25 Aerobic Blood Culture - Preliminary Blood - Venous - Lab Draw NO GROWTH AFTER 1 DAY Anaerobic Blood Culture - Preliminary NO GROWTH AFTER 1 DAY 01/31/21 07:55 Aerobic Blood Culture - Preliminary Blood - Venous NO GROWTH AFTER 1 DAY Anaerobic Blood Culture - Preliminary NO GROWTH AFTER 1 DAY Sepsis Event Note - Evaluation Sepsis Screening Result: Sepsis Risk - Focused Exam Vital Signs: Vital Signs Temp Pulse Pulse Resp BP BP Pulse Ox 02/01/21 15:00 87 29 H 111/76 90 L 02/01/21 14:00 79 34 H 110/84 94 L 02/01/21 13:00 95 26 H 118/72 90 L 02/01/21 12:00 36.8 C 110 H 116/91 H 02/01/21 11:39 113 H 26 H 119/92 H 02/01/21 11:00 36.7 C 101 H 26 H 116/81 95 02/01/21 10:00 93 32 H 105/77 90 L 02/01/21 09:00 99 24 H 112/80 02/01/21 08:22 132 H 126/92 H 02/01/21 08:00 37.0 C 123 H 26 H 124/93 H 93 L 02/01/21 07:00 28 H 128/88 95 02/01/21 06:36 02/01/21 06:01 27 H 96 02/01/21 06:00 28 H 133/94 H 91 L 02/01/21 05:32 36.9 C 26 H 132/96 H 91 L 02/01/21 05:00 123/87 02/01/21 04:00 36.8 C 23 H 117/84 93 L Pulse Ox 02/01/21 15:00 02/01/21 14:00 02/01/21 13:00 02/01/21 12:00 02/01/21 11:39 02/01/21 11:00 02/01/21 10:00 02/01/21 09:00 02/01/21 08:22 02/01/21 08:00 02/01/21 07:00 02/01/21 06:36 93 L 02/01/21 06:01 02/01/21 06:00 02/01/21 05:32 02/01/21 05:00 93 L 02/01/21 04:00 - Problem List & Annotations (1) Chronic atrial fibrillation with RVR SNOMED Code(s): 468607499, 147385044883180 Code(s): I48.20 - CHRONIC ATRIAL FIBRILLATION, UNSPECIFIED Status: Acute Priority: Medium Current Visit: Yes Onset Date: ~01/31/21 (2) Alcoholism SNOMED Code(s): 5089879 Code(s): F10.20 - ALCOHOL DEPENDENCE, UNCOMPLICATED Status: Acute Priority: High Current Visit: No Onset Date: ~01/31/21 (3) CHF (congestive heart failure) SNOMED Code(s): 71520571 Code(s): I50.9 - HEART FAILURE, UNSPECIFIED Status: Acute Priority: Medium Current Visit: No Onset Date: ~01/31/21 Qualifiers: Heart failure type: unspecified Heart failure chronicity: acute on chronic Qualified Code(s): I50.9 - Heart failure, unspecified - Problem List Review Problem List Initiated/Reviewed/Updated: Yes - My Orders Last 24 Hours: My Active Orders 02/01/21 19:30 Diltiazem IR [Cardizem] 120 mg PO Q8H 02/02/21 07:30 Chest 2V [CR] Routine - Assessment Assessment:: 02/01/21 afebrile/ heart rate 100-150 on cardizem drip. beta maday given this am only . b.p 150/87 slept fair/ ciwas high 16-20. needs freq reorientation and assistance. mildly bossy but can be redirected. trying to get out of bed. i/os reviewed. weight increased. p.e. mildly combative. cor irreg irreg. nad 2/6 syst murmur with proth etic click over t 2 interspace. no jvd. lungs clear equal. abd benign. no spleen noted.no liver or ascites. m.s normal . skin normal . neuro: confused and wants bed bar down . tremor mild . lab reviewed. chest xray reviewed lll infitrate. on zosyn and vanco assess: etoh widthdrawl mod to severe and starated librium as requiring alot of lorazepam. consider haldol 1-2 mg if does not respond favorably . d.t signs moderate. ciwas high . lll pneumonia cont current treatment. chf mild to moiderate an monitor cv satus. b.p high but better. afib with rvr and aortic proth. valve. awaiting echo but cont current treatment . no obvious increased chf signs. chf controlled. crf stable and gfr mildly decreased. acute ami ruled out. boh - Plan Plan:: Assessment: This is a 60M with PMHx of Type II DM, Atrial Fibrillation (on xarelto and metoprolol), hx of alcoholism presenting with Atrial Fibrillation w/RVR. He was given IVF and given diltiazem bolus infusion and started on IV continuous infusion. 1. Afib w/RVR; hx of Afib 2. Hx of Alcoholism and now with early alcohol withdrawal syndrome 3. SIRS syndrome; tachycardia/leukocytosis; rule out sepsis -> now with fever and lactic acidosis 4. Hx of Type II DM 5. Acute alcohol withdrawal Plan -continue IV diltiazem in fusion -continue metoprolol PO -continue xarelto -CIWA alcohol withdrawal protocol -folate/thiamine -IVF -rechecked lactate elevated, will check cxr and UA; IVF; start empiric zosyn and vanco; repeat blood cx -SSI hold metformin -check TSH -echo; given alcohol hx; eval for alcohol induced cardiomyopathy Code Status-Full code DVT ppx-Xarelto Dispo-Anticipated discharge to home in 2-3 days 02/01/21 afebrile/ heart rate 100-150 on cardizem drip. beta maday given this am only . b.p 150/87 slept fair/ ciwas high 16-20. needs freq reorientation and assistance. mildly bossy but can be redirected. trying to get out of bed. i/os reviewed. weight increased. p.e. mildly combative. cor irreg irreg. nad 2/6 syst murmur with prothetic click over t 2 interspace. no jvd. lungs clear equal. abd benign. no spleen noted.no liver or ascites. m.s normal . skin normal . neuro: confused and wants bed bar down . tremor mild . lab reviewed. chest xray reviewed lll infitrate. on zosyn and vanco assess: etoh widthdrawl mod to severe and starated librium as requiring alot of lorazepam. consider haldol 1-2 mg if does not respond favorably . d.t signs moderate. ciwas high . lll pneumonia cont current treatment. chf mild to moiderate an monitor cv satus. b.p high but better. afib with rvr and aortic proth. valve. awaiting echo but cont current treatment . no obvious increased chf signs. chf controlled. crf stable and gfr mildly decreased. acute ami ruled out. boh
[2021-02-01] MEDS: Diltiazem IR 60 MG Tab PO SCH (18:29)
[2021-02-01] MEDS ORDERED: Furosemide 20 MG/2 ML VIAL IVPUSH ONE (20:20)
[2021-02-01] MEDS: atorvaSTATin 40 MG Tab PO SCH (20:35)
[2021-02-01] MEDS: Gabapentin 600 MG Tab PO SCH (20:35)
[2021-02-02] MEDS: Diltiazem IR 60 MG Tab PO SCH ×3 (02:33→19:23)
[2021-02-02] MEDS: Piperacillin/Tazobactam 4.5 GM in Sodium Chloride 0.9% 100 ML IV SCH (03:32)
[2021-02-02] MEDS: LORazepam 2 MG/ML SDV IV SCH ×4 (03:32→19:22)
[2021-02-02] MEDS: HYDROmorphone 0.5 MG/0.5 ML Syringe IVPUSH PRN ×2 (03:33→20:41)
[2021-02-02] MEDS ORDERED: Diltiazem 50 MG/10 ML SDV IVPUSH ONE (05:59)
[2021-02-02] MEDS: Metoprolol Tartrate 50 MG Tab PO SCH ×3 (06:12→20:40)
[2021-02-02] MEDS: Pantoprazole 40 MG Tab.CR PO SCH (06:12)
[2021-02-02] MEDS: Diltiazem 100 MG in Sodium Chloride 0.9% 100 ML IV SCH (08:09)
[2021-02-02] MEDS: Thiamine 100 MG Tab PO SCH (08:10)
[2021-02-02] MEDS: Cholecalciferol (Vitamin D3) 5,000 UNIT Cap PO SCH (08:10)
[2021-02-02] MEDS: Rivaroxaban 10 MG Tab PO SCH (08:11)
[2021-02-02] MEDS: chlordiazePOXIDE 25 MG Cap PO SCH ×2 (08:11→20:41)
[2021-02-02] MEDS: Insulin Lispro 100 UNIT/ML 10 ML Vial SUBCUT SCH ×4 (08:30→21:27)
[2021-02-02] MEDS ORDERED: Magnesium Sulfate/Water 2 GM in Premix Bag 1 BAG IV ONE (08:30)
--- NOTE | 2021-02-02 10:19 | CR ---
Chest: AP view of the chest was obtained. Comparison: Prior chest x-ray 01/31/21. Increased density is seen within the left lung base which is more prominent in size from prior exam. Pulmonary vessels are also slightly congested. Heart is slightly prominent. Bony structures are grossly intact. Impression: 1. Increased size of previous density within the left base in the interim from prior study. Findings presumably represent continuing pneumonia. 2. Findings are suspicious for mild CHF as well. Diagnostic code #3
[2021-02-02] MEDS ORDERED: Furosemide 20 MG/2 ML VIAL IVPUSH ONE (11:30)
[2021-02-02] MEDS: Vancomycin 1.75 GM in Sodium Chloride 0.9% 500 ML IV SCH (11:33)
--- NOTE | 2021-02-02 16:33 | PCM.PN ---
- General Info Date of Service: 02/02/21 Admission Dx/Problem (Free Text): Admission Diagnosis/Problem Admission Diagnosis/Problem Atrial fibrillation [place] [facility] Admission History & Physical Patient Name: EDGARDO ARMSTRONG Date of : 1960 Patient Status: Inpatient Attending Provider: Walt Ellington Date: 01/30/21 13:40 Initialization Date: 01/30/21 13:40 H&P History of Present Illness - General Date of Service: 01/30/21 Admit Problem/Dx: Admission Diagnosis/Problem Admission Diagnosis/Problem Atrial fibrillation - History of Present Illness Initial Comments - Free Text/Narative: This is a 60M with PMHx of Type II DM, Atrial Fibrillation (on xarelto and metoprolol), hx of alcoholism presenting for right lower extremity pain. The patient continues to drink daily, his last drink of beer and liquor was last night. he has bruising on his right lower extremity but he is unsure of m echanism of injury. He denies falls, denies hitting his head. He presented to ED where he was noted to be in Atrial Fibrillation w/RVR. He was given IVF and given diltiazem bolus infusion and started on IV continuous infusion. He denies chest pain, chest pressure, palpitations. Denies nausea, vomiting, abdominal pain, fever. Endorses hx of alcohol withdrawal tremors. Past Medical History - Past Health History Medical/Surgical History: Denies Medical/Surgical History HEENT History: Reports: Cataract Cardiovascular History: Reports: Afib, High Cholesterol, Hypertension Other Cardiovascular History: hx/o a-fib/RVR Respiratory History: Reports: COPD, Other (See Below) Other Respiratory History: 07/24/16 admitted with pneumonia Gastrointestinal History: Reports: GERD Genitourinary History: Reports: Renal Calculus Musculoskeletal History: Reports: Fracture Other Musculoskeletal History: rigth foot fracture 20 yrs ago Neurological History: Reports: Other (See Below) Other Neuro History: With withdrawal for alcohol Psychiatric History: Reports: Addiction Other Psychiatric History: alcohol Endocrine/Metabolic History: Reports: Obesity/BMI 30+ Hematologic History: Reports: None Other Immunologic History: pt states that a doctor told him he had hep c once but his last check was ok Oncologic (Cancer) History: Reports: None Dermatologic History: Reports: None - Infectious Disease History Infectious Disease History: Reports: Hepatitis C, MRSA Other Infectious Disease History: Hep C per [facility] P[facility] hospitalist/[place], 06/2016. - Past Surgical History Musculoskeletal Surgical History: Reports: ORIF, Other (See Below) Social & Family History - Family History Family Medical History: Noncontributory Neurological: Reports: CVA Endocrine/Metabolic: Reports: Diabetes, type II Hematologic: Reports: Other (See Below) Other Hematologic Family History: hepatitias c Immunologic: Reports: None Oncologic: Reports: Leukemia - Tobacco Use Smoking Status *Q: Former Smoker Used Tobacco, but Quit: Yes Month/Year Tobacco Last Used: 2017 - Caffeine Use Caffeine Use: Reports: None - Alcohol Use Date of Last Drink: 07/25/19 Time of Last Drink: 01:00 - Recreational Drug Use Recreational Drug Use: No - Living Situation & Occupation Living situation: Reports: , Alone Occupation: Unemployed Right Leg Pain Score (Numeric/FACES): 10 - Related Data Allergies/Adverse Reactions: Allergies Allergy/AdvReac Type Severity Reaction Status Date / Time No Known Allergies Allergy Verified 01/30/21 09:49 Home Medications: Home Meds Omeprazole 20 mg PO DAILY 07/07/16 [History] Folic Acid 1 mg PO DAILY 09/26/17 [History] Metoprolol Tartrate 75 mg PO BID 09/26/17 [History] Thiamine [Vitamin B-1] 200 mg PO DAILY 09/26/17 [History] Cholecalciferol (Vitamin D3) [Vitamin D] 5,000 unit PO DAILY 01/09/19 [History] Diltiazem [Dilacor XR] 240 mg PO DAILY 01/09/19 [History] Magnesium Oxide 420 mg PO BID 01/09/19 [History] Multivitamin [Multivitamins] 1 each PO DAILY 01/09/19 [History] Rivaroxaban [Xarelto] 20 mg PO DAILY 01/09/19 [History] atorvaSTATin [Lipitor] 40 mg PO BEDTIME 01/09/19 [History] metFORMIN HCl [Metformin HCl] 500 mg PO BID 07/25/19 [History] Gabapentin [Neurontin] 600 mg PO BEDTIME #30 tab 11/20/20 [Rx] Past Medical History - Past Health History Medical/Surgical History: Denies Medical/Surgical History HEENT History: Reports: Cataract Cardiovascular History: Reports: Afib, High Cholesterol, Hypertension Other Cardiovascular History: hx/o a-fib/RVR Respiratory History: Reports: COPD Other Respiratory History: 07/24/16 admitted with pneumonia Gastrointestinal History: Reports: GERD Genitourinary History: Reports: Renal Calculus Musculoskeletal History: Reports: Fracture Other Musculoskeletal History: rigth foot fracture 20 yrs ago; Fx of L wrist 2018 Neurological History: Reports: Other (See Below) Other Neuro History: seizures with ETOH withdrawal Psychiatric History: Reports: Addiction Other Psychiatric History: alcohol Endocrine/Metabolic History: Reports: Diabetes, Type II, Obesity/BMI 30+ Hematologic History: Reports: Anticoagulation Therapy Other Immunologic History: pt states that a doctor told him he had hep c once but his last check was ok Oncologic (Cancer) History: Reports: None Dermatologic History: Reports: None - Infectious Disease History Infectious Disease History: Reports: Hepatitis C, MRSA Other Infectious Disease History: Hep C per Demond Ponce hospitalist/[place], 06/2016. - Past Surgical History Musculoskeletal Surgical History: Reports: ORIF, Other (See Below) Other Musculoskeletal Surgeries/Procedures:: right toe -hammer toe surgery, left wrist surgery; BUNIONECTOMY Social & Family History - Family History Family Medical History: No Pertinent Family History Neurological: Reports: CVA Endocrine/Metabolic: Reports: Diabetes, type II Hematologic: Reports: Other (See Below) Other Hematologic Family History: hepatitias c Immunologic: Reports: None Oncologic: Reports: Leukemia - Tobacco Use Tobacco Use Status *Q: Never Tobacco User - Caffeine Use Caffeine Use: Reports: Tea - Recreational Drug Use Recreational Drug Use: No - Living Situation & Occupation Living situation: Reports: , Alone Occupation: Unemployed H&P Review of Systems - Review of Systems: Review Of Systems: Comprehensive ROS is negative, except as noted in HPI. Exam - Exam Exam: See Below - Vital Signs Vital Signs: Last Vital Signs Temp 97 F 01/30/21 13:26 Pulse 117 H 01/30/21 13:26 Resp 16 01/30/21 13:26 BP 104/79 01/30/21 13:26 Pulse Ox 94 L 01/30/21 13:26 Weight: 234 lb 8 oz - Exam Physical Exam Comments:: Gen: no acute distress HEENT: NCAT EOMI MMM Neck: supple CV: Tachycardic, irregularly irregular; normal s1 s2 Lungs: CTAB Abd: Soft, nt, nd Neuro: AOX3, CN intact, nonfocal screening exam Psych: appropriate affect MSK: age appropriate muscle mass Ext: Bruising of right lower extremity - Patient Data Lab Results Last 24 hrs: Laboratory Results - last 24 hr 01/30/21 01/30/21 01/30/21 Range/Units 10:45 10:55 10:55 WBC 10.87 H (4.23-9.07) K/mm3 RBC 4.61 L (4.63-6.08) M/mm3 Hgb 13.6 L (13.7-17.5) gm/dl Hct 40.8 (40.1-51.0) % MCV 88.5 (79.0-92.2) fl MCH 29.5 (25.7-32.2) pg MCHC 33.3 (32.2-35.5) g/dl RDW Std Deviation 48.8 H (35.1-43.9) fL Plt Count 192 (163-337) K/mm3 MPV 8.6 L (9.4-12.3) fl Neut % (Auto) 77.0 H (34.0-67.9) % Lymph % (Auto) 10.9 L (21.8-53.1) % [place] % (Auto) 9.7 (5.3-12.2) % Eos % (Auto) 1.5 (0.8-7.0) Baso % (Auto) 0.3 (0.1-1.2) % Neut # (Auto) 8.37 H (1.78-5.38) K/mm3 Lymph # (Auto) 1.19 L (1.32-3.57) K/mm3 [place] # (Auto) 1.05 H (0.30-0.82) K/mm3 Eos # (Auto) 0.16 (0.04-0.54) K/mm3 Baso # (Auto) 0.03 (0.01-0.08) K/mm3 Sodium 136 (136-145) mEq/L Potassium 3.9 (3.5-5.1) mEq/L Chloride 98 (98-107) mEq/L Carbon Dioxide 28 (21-32) mEq/L Anion Gap 13.9 (5-15) BUN 12 (7-18) mg/dL Creatinine 1.3 (0.7-1.3) mg/dL Est Cr Clr Drug Dosing 57.73 mL/min Estimated GFR (MDRD) 56 (>60) mL/min BUN/Creatinine Ratio 9.2 L (14-18) Glucose 121 H (70-99) mg/dL Calcium 8.4 L (8.5-10.1) mg/dL Magnesium 1.4 L (1.8-2.4) mg/dL Total Bilirubin 0.8 (0.2-1.0) mg/dL AST 38 H (15-37) U/L ALT 45 (16-63) U/L Alkaline Phosphatase 66 (46-116) U/L Troponin I < 0.017 (0.00-0.056) ng/mL Total Protein 6.8 (6.4-8.2) g/dl Albumin 3.2 L (3.4-5.0) g/dl Globulin 3.6 gm/dL Albumin/Globulin Ratio 0.9 L (1-2) Ethyl Alcohol (0.00) gm% SARS-CoV-2 RNA (ISABELLA) Negative (NEGATIVE) 01/30/21 Range/Units 10:55 WBC (4.23-9.07) K/mm3 RBC (4.63-6.08) M/mm3 Hgb (13.7-17.5) gm/dl Hct (40.1-51.0) % MCV (79.0-92.2) fl MCH (25.7-32.2) pg MCHC (32.2-35.5) g/dl RDW Std Deviation (35.1-43.9) fL Plt Count (163-337) K/mm3 MPV (9.4-12.3) fl Neut % (Auto) (34.0-67.9) % Lymph % (Auto) (21.8-53.1) % [place] % (Auto) (5.3-12.2) % Eos % (Auto) (0.8-7.0) Baso % (Auto) (0.1-1.2) % Neut # (Auto) (1.78-5.38) K/mm3 Lymph # (Auto) (1.32-3.57) K/mm3 [place] # (Auto) (0.30-0.82) K/mm3 Eos # (Auto) (0.04-0.54) K/mm3 Baso # (Auto) (0.01-0.08) K/mm3 Sodium (136-145) mEq/L Potassium (3.5-5.1) mEq/L Chloride (98-107) mEq/L Carbon Dioxide (21-32) mEq/L Anion Gap (5-15) BUN (7-18) mg/dL Creatinine (0.7-1.3) mg/dL Est Cr Clr Drug Dosing mL/min Estimated GFR (MDRD) (>60) mL/min BUN/Creatinine Ratio (14-18) Glucose (70-99) mg/dL Calcium (8.5-10.1) mg/dL Magnesium (1.8-2.4) mg/dL Total Bilirubin (0.2-1.0) mg/dL AST (15-37) U/L ALT (16-63) U/L Alkaline Phosphatase (46-116) U/L Troponin I (0.00-0.056) ng/mL Total Protein (6.4-8.2) g/dl Albumin (3.4-5.0) g/dl Globulin gm/dL Albumin/Globulin Ratio (1-2) Ethyl Alcohol 0.00 (0.00) gm% SARS-CoV-2 RNA (ISABELLA) (NEGATIVE) Result Diagrams: 01/30/21 10:55 01/30/21 10:55 Sepsis Event Note - Evaluation Sepsis Screening Result: No Definite Risk - Focused Exam Vital Signs: Vital Signs Temp Pulse Pulse Resp BP Pulse Ox 01/30/21 13:26 97 F 117 H 16 104/79 94 L 01/30/21 09:45 97.6 F 153 H 20 140/110 H 96 *Q Meaningful Use (ADM) - VTE *Q VTE Criteria *Q: 2 Problem List Initiated/Reviewed/Updated: Yes Orders Last 24hrs: Active Orders 24 hr Category Date Time Status Patient Status [ADT] Routine ADT 01/30/21 13:33 Ordered CIWAA Assessment [RC] Q15M Care 01/30/21 13:37 Ordered CIWAA Assessment [RC] Q1H Care 01/30/21 13:37 Ordered CIWAA Assessment [RC] Q30M Care 01/30/21 13:37 Ordered CIWAA Assessment [RC] Q4H Care 01/30/21 13:37 Ordered Cardiac Monitoring [RC] . DIRECTED Care 01/30/21 09:59 Active Cardiac Monitoring [RC] CONTINUOUS Care 01/30/21 13:33 Ordered EKG 12 Lead [EKG Documentation Completion] [RC] ROUTINE Care 01/30/21 09:55 Active Intake and Output [RC] QSHIFT Care 01/30/21 13:33 Ordered Notify Provider Vital Signs [RC] ASDIRECTED Care 01/30/21 13:34 Ordered Notify Provider [RC] PRN Care 01/30/21 13:37 Ordered Oxygen Therapy [RC] PRN Care 01/30/21 13:33 Ordered Peripheral IV Care [RC] . DIRECTED Care 01/30/21 10:00 Active Pulse Oximetry [RC] CONTINUOUS Care 01/30/21 13:33 Ordered Up ad Sharon [RC] ASDIRECTED Care 01/30/21 13:32 Ordered VTE/DVT Education [RC] PER UNIT ROUTINE Care 01/30/21 13:33 Ordered Vital Signs [RC] Q4H Care 01/30/21 13:33 Ordered Regular Diet [DIET] Diet 01/30/21 Dinner Ordered CXR [Chest 1V Frontal] [CR] Routine Exams 01/30/21 13:31 Ordered VL Duplex Lwr Ext Veins Ltd Rt [US] Stat Exams 01/30/21 10:00 Taken BASIC METABOLIC PANEL,BMP [CHEM] DAILY Lab 01/31/21 06:00 Ordered BASIC METABOLIC PANEL,BMP [CHEM] DAILY Lab 02/01/21 06:00 Ordered CBC WITH AUTO DIFF [HEME] DAILY Lab 01/31/21 06:00 Ordered CBC WITH AUTO DIFF [HEME] DAILY Lab 02/01/21 06:00 Ordered CULTURE BLOOD [BC] Stat Lab 01/30/21 13:30 Ordered CULTURE BLOOD [BC] Stat Lab 01/30/21 13:30 Ordered LACTATE SEPSIS W/ REFLEX [CHEM] Stat Lab 01/30/21 13:30 Ordered MAGNESIUM [CHEM] AM Lab 01/31/21 05:11 Ordered UA RFX NELSON AND CULT IF INDIC [URIN] Routine Lab 01/30/21 13:30 Ordered Acetaminophen [TylenoL] Med 01/30/21 13:32 Ordered 650 mg PO Q4H PRN Diltiazem [Cardizem] 100 mg Med 01/30/21 10:15 Active Sodium Chloride 0.9% [Normal Saline] 100 ml IV TITRATE Folic Acid Med 01/30/21 13:45 Ordered 1 mg PO DAILY LORazepam [Ativan] Med 01/30/21 13:45 Ordered See Protocol IV ASDIRECTED Lactated Ringers [Ringers, Lactated] 1,000 ml Med 01/30/21 13:45 Ordered IV ASDIRECTED Magnesium Sulfate/Water [Magnesium Sulfate in Water 2 Med 01/30/21 13:29 Ordered GM/50 ML] 2 gm Premix Bag 1 bag IV ONETIME Multivitamins [Tab-A-Tanya] Med 01/30/21 13:37 Once 1 tab PO ONETIME ONE Ondansetron [Zofran] Med 01/30/21 13:32 Ordered 4 mg IV Q4H PRN Sodium Chloride 0.9% [Normal Saline] 1,000 ml Med 01/30/21 10:00 Active IV ASDIRECTED Sodium Chloride 0.9% [Saline Flush] Med 01/30/21 09:59 Active 10 ml FLUSH ASDIRECTED PRN Thiamine [Vitamin B-1] Med 01/30/21 13:45 Ordered 100 mg PO DAILY oxyCODONE Med 01/30/21 13:32 Ordered 5 mg PO Q4H PRN Blood Culture x2 Reflex Set [OM.PC] Stat Oth 01/30/21 13:30 Ordered Peripheral IV Insertion Adult [OM.PC] Stat Oth 01/30/21 09:59 Ordered Resuscitation Status Routine Resus Stat 01/30/21 13:32 Ordered Medication Orders Acetaminophen (Acetaminophen 325 Mg Tab) 650 mg PO Q4H PRN PRN Reason: Pain (Mild 1-3)/fever Folic Acid (Folic Acid 1 Mg Tab) 1 mg PO DAILY DIAMANTE Stop: 02/01/21 09:01 Diltiazem HCl 100 mg/ Sodium (Chloride) 100 mls @ 10 mls/hr IV TITRATE DIAMANTE; Protocol Last Titration: 01/30/21 12:08 Dose: 15 mg/hr, 15 mls/hr Documented by: Admin: 01/30/21 10:20 Dose: 10 mg/hr, 10 mls/hr Documented by: EVGENY Sodium Chloride (Normal Saline) 1,000 mls @ 125 mls/hr IV ASDIRECTED DIAMANTE Last Infusion: 01/30/21 12:08 Dose: 125 mls/hr Documented by: Infusion: 01/30/21 11:00 Dose: 0 mls/hr Documented by: Admin: 01/30/21 10:20 Dose: 125 mls/hr Documented by: EVGENY Magnesium Sulfate 2 gm/ Premix 50 mls @ 25 mls/hr IV ONETIME ONE Stop: 01/30/21 15:28 Lactated Ringer's (Ringers, Lactated) 1,000 mls @ 100 mls/hr IV ASDIRECTED DIAMANTE Lorazepam (Lorazepam 2 Mg/Ml Sdv) 0 mg IV ASDIRECTED DIAMANTE; Protocol Multivitamins/Minerals/Vitamin C (Multivitamin Tab) 1 tab PO ONETIME ONE Stop: 01/30/21 13:38 Ondansetron HCl (Ondansetron 4 Mg/2 Ml Sdv) 4 mg IV Q4H PRN PRN Reason: Nausea/Vomiting Oxycodone HCl (Oxycodone 5 Mg Tab) 5 mg PO Q4H PRN PRN Reason: Pain (moderate 4-6) Sodium Chloride (Sodium Chloride 0.9% 10 Ml Syringe) 10 ml FLUSH ASDIRECTED PRN PRN Reason: Keep Vein Open Last Admin: 01/30/21 10:32 Dose: 10 ml Documented by: EVGENY Thiamine HCl (Thiamine 100 Mg Tab) 100 mg PO DAILY DIAMANTE Assessment/Plan Comment:: Assessment: This is a 60M with PMHx of Type II DM, Atrial Fibrillation (on xarelto and metoprolol), hx of alcoholism presenting with Atrial Fibrillation w/RVR. He was given IVF and given diltiazem bolus infusion and started on IV continuous infusion. 1. Afib w/RVR; hx of Afib 2. Hx of Alcoholism and now with early alcohol withdrawal syndrome 3. SIRS syndrome; tachycardia/leukocytosis 4. Hx of Type II DM Plan -admit to inpatient -continue IV diltiazem in fusion -start metoprolol PO -continue xarelto -CIWA alcohol withdrawal protocol -folate/thiamine -IVF -check CXR/lactate/UA -SSI hold metformin -check TSH -echo; given alcohol hx; eval for alcohol induced cardiomyopathy Code Status-Full code DVT ppx-Xarelto Dispo-Anticipated discharge to home in 2-3 days - Mortality Measure Prognosis:: Good Subjective Update: 02/01/21 afebrile/ heart rate 100-150 on cardizem drip. beta maday given this am only . b.p 150/87 slept fair/ ciwas high 16-20. needs freq reorientation and assistance. mildly bossy but can be redirected. trying to get out of bed. i/os reviewed. weight increased. p.e. mildly combative. cor irreg irreg. nad / syst murmur with prothetic click over t 2 interspace. no jvd. lungs clear equal. abd benign. no spleen noted.no liver or ascites. m.s normal . skin normal . neuro: confused and wants bed bar down . tremor mild . lab reviewed. chest xray reviewed lll infitrate. on zosyn and vanco assess: etoh widthdrawl mod to severe and started librium as requiring alot of lorazepam. consider haldol 1-2 mg if does not respond favorably . d.t signs moderate. ciwas high . lll pneumonia cont current treatment. chf mild to moderate an monitor cv satus. 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 awaiting echo but cont current treatment . no obvious increased chf signs. chf controlled. crf stable and gfr mildly decreased. acute ami ruled out. boh 02/02/21 afebrile/ i/os still elavated 4000/4600 lasix x one. resp : mild wheezes and increased rate. feels sob.mild coughing. cor: afib rate increased to 140-180 and drip restarted and p.o cardizem held until this am . now 120. murmur unchanged no s3 s4 abd: benign. neuro:on librium and ativan with improved ciwa scores. occasional agitation but feels better this am mild tremoring . no sweating and good appetite this am . lab pending bnp 3500. chest xray increased vasc markings and edema infiltrate unchanged. assess//plan pneumonia improving zosyn and vanc./cont x 24 hours then change if pneumonia improving/ cbc and crp improved. chf worsening but mainly imbalanced and high initial fluids and responding to lasix. echo ordered and pending. murmur unchanged./ no acute injury. rt leg cellulitis resolved oa changes stable no long track findings. etoh width drawal stabilizing and weaning ativan and haldol. 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 cont beta maday at same dose but started losartan. renal insuff stable good response to diuretics. boh Functional Status: Reports: Pain Controlled - Review of Systems Pulmonary: Reports: Shortness of Breath, Cough, Wheezing Cardiovascular: Reports: Dyspnea on Exertion, Orthopnea, PND, Edema Gastrointestinal: Reports: Decreased Appetite Genitourinary: Reports: No Symptoms Musculoskeletal: Reports: Leg Pain Skin: Reports: No Symptoms Neurological: Reports: Confusion, Tremors Psychiatric: Reports: Anxiety - Patient Data Vitals - Most Recent: Last Vital Signs Temp 36.7 C 02/02/21 12:00 Pulse 132 H 02/02/21 06:12 Resp 25 H 02/02/21 12:00 BP 97/82 02/02/21 12:00 Pulse Ox 91 L 02/02/21 12:00 Weight - Most Recent: 114.85 kg I&O - Last 24 Hours: Intake & Output 02/02/21 02/02/21 02/02/21 06:59 14:59 22:59 Intake Total 1048 120 Output Total 1100 800 Balance -52 -680 Lab Results Last 24 Hours: Laboratory Results - last 24 hr 02/01/21 02/01/21 02/02/21 Range/Units 17:29 21:06 05:36 WBC 7.70 (4.23-9.07) K/mm3 RBC 3.70 L (4.63-6.08) M/mm3 Hgb 10.9 L (13.7-17.5) gm/dl Hct 33.5 L (40.1-51.0) % MCV 90.5 (79.0-92.2) fl MCH 29.5 (25.7-32.2) pg MCHC 32.5 (32.2-35.5) g/dl RDW Std Deviation 50.9 H (35.1-43.9) fL Plt Count 138 L (163-337) K/mm3 MPV 9.4 (9.4-12.3) fl Neut % (Auto) 70.3 H (34.0-67.9) % Lymph % (Auto) 13.1 L (21.8-53.1) % [place] % (Auto) 14.0 H (5.3-12.2) % Eos % (Auto) 1.9 (0.8-7.0) Baso % (Auto) 0.3 (0.1-1.2) % Neut # (Auto) 5.41 H (1.78-5.38) K/mm3 Lymph # (Auto) 1.01 L (1.32-3.57) K/mm3 [place] # (Auto) 1.08 H (0.30-0.82) K/mm3 Eos # (Auto) 0.15 (0.04-0.54) K/mm3 Baso # (Auto) 0.02 (0.01-0.08) K/mm3 Sodium (136-145) mEq/L Potassium (3.5-5.1) mEq/L Chloride (98-107) mEq/L Carbon Dioxide (21-32) mEq/L Anion Gap (5-15) BUN (7-18) mg/dL Creatinine (0.7-1.3) mg/dL Est Cr Clr Drug Dosing mL/min Estimated GFR (MDRD) (>60) mL/min BUN/Creatinine Ratio (14-18) Glucose (70-99) mg/dL POC Glucose 125 H 91 (70-99) mg/dL Calcium (8.5-10.1) mg/dL Magnesium (1.8-2.4) mg/dL Total Bilirubin (0.2-1.0) mg/dL AST (15-37) U/L ALT (16-63) U/L Alkaline Phosphatase (46-116) U/L NT-Pro-B Natriuret Pep (0-125) pg/mL Total Protein (6.4-8.2) g/dl Albumin (3.4-5.0) g/dl Globulin gm/dL Albumin/Globulin Ratio (1-2) 02/02/21 02/02/21 02/02/21 Range/Units 05:36 05:36 08:09 WBC (4.23-9.07) K/mm3 RBC (4.63-6.08) M/mm3 Hgb (13.7-17.5) gm/dl Hct (40.1-51.0) % MCV (79.0-92.2) fl MCH (25.7-32.2) pg MCHC (32.2-35.5) g/dl RDW Std Deviation (35.1-43.9) fL Plt Count (163-337) K/mm3 MPV (9.4-12.3) fl Neut % (Auto) (34.0-67.9) % Lymph % (Auto) (21.8-53.1) % [place] % (Auto) (5.3-12.2) % Eos % (Auto) (0.8-7.0) Baso % (Auto) (0.1-1.2) % Neut # (Auto) (1.78-5.38) K/mm3 Lymph # (Auto) (1.32-3.57) K/mm3 [place] # (Auto) (0.30-0.82) K/mm3 Eos # (Auto) (0.04-0.54) K/mm3 Baso # (Auto) (0.01-0.08) K/mm3 Sodium 138 (136-145) mEq/L Potassium 3.6 (3.5-5.1) mEq/L Chloride 103 (98-107) mEq/L Carbon Dioxide 26 (21-32) mEq/L Anion Gap 12.6 (5-15) BUN 6 L (7-18) mg/dL Creatinine 0.9 (0.7-1.3) mg/dL Est Cr Clr Drug Dosing 83.39 mL/min Estimated GFR (MDRD) > 60 (>60) mL/min BUN/Creatinine Ratio 6.7 L (14-18) Glucose 104 H (70-99) mg/dL POC Glucose 91 (70-99) mg/dL Calcium 8.3 L (8.5-10.1) mg/dL Magnesium 1.6 L (1.8-2.4) mg/dL Total Bilirubin 1.4 H (0.2-1.0) mg/dL AST 34 (15-37) U/L ALT 44 (16-63) U/L Alkaline Phosphatase 56 (46-116) U/L NT-Pro-B Natriuret Pep 3076 H (0-125) pg/mL Total Protein 6.0 L (6.4-8.2) g/dl Albumin 2.5 L (3.4-5.0) g/dl Globulin 3.5 gm/dL Albumin/Globulin Ratio 0.7 L (1-2) 02/02/21 Range/Units 10:59 WBC (4.23-9.07) K/mm3 RBC (4.63-6.08) M/mm3 Hgb (13.7-17.5) gm/dl Hct (40.1-51.0) % MCV (79.0-92.2) fl MCH (25.7-32.2) pg MCHC (32.2-35.5) g/dl RDW Std Deviation (35.1-43.9) fL Plt Count (163-337) K/mm3 MPV (9.4-12.3) fl Neut % (Auto) (34.0-67.9) % Lymph % (Auto) (21.8-53.1) % [place] % (Auto) (5.3-12.2) % Eos % (Auto) (0.8-7.0) Baso % (Auto) (0.1-1.2) % Neut # (Auto) (1.78-5.38) K/mm3 Lymph # (Auto) (1.32-3.57) K/mm3 [place] # (Auto) (0.30-0.82) K/mm3 Eos # (Auto) (0.04-0.54) K/mm3 Baso # (Auto) (0.01-0.08) K/mm3 Sodium (136-145) mEq/L Potassium (3.5-5.1) mEq/L Chloride (98-107) mEq/L Carbon Dioxide (21-32) mEq/L Anion Gap (5-15) BUN (7-18) mg/dL Creatinine (0.7-1.3) mg/dL Est Cr Clr Drug Dosing mL/min Estimated GFR (MDRD) (>60) mL/min BUN/Creatinine Ratio (14-18) Glucose (70-99) mg/dL POC Glucose 140 H (70-99) mg/dL Calcium (8.5-10.1) mg/dL Magnesium (1.8-2.4) mg/dL Total Bilirubin (0.2-1.0) mg/dL AST (15-37) U/L ALT (16-63) U/L Alkaline Phosphatase (46-116) U/L NT-Pro-B Natriuret Pep (0-125) pg/mL Total Protein (6.4-8.2) g/dl Albumin (3.4-5.0) g/dl Globulin gm/dL Albumin/Globulin Ratio (1-2) Nelson Results Last 24 Hours: Microbiology 01/30/21 14:00 Aerobic Blood Culture - Preliminary Blood - Venous - Lab Draw NO GROWTH AFTER 3 DAYS Anaerobic Blood Culture - Preliminary NO GROWTH AFTER 3 DAYS 01/30/21 13:57 Aerobic Blood Culture - Preliminary Blood - Venous NO GROWTH AFTER 3 DAYS Anaerobic Blood Culture - Preliminary NO GROWTH AFTER 3 DAYS 01/31/21 08:25 Aerobic Blood Culture - Preliminary Blood - Venous - Lab Draw NO GROWTH AFTER 2 DAYS Anaerobic Blood Culture - Preliminary NO GROWTH AFTER 2 DAYS 01/31/21 07:55 Aerobic Blood Culture - Preliminary Blood - Venous NO GROWTH AFTER 2 DAYS Anaerobic Blood Culture - Preliminary NO GROWTH AFTER 2 DAYS Med Orders - Current: Current Medications Acetaminophen (Acetaminophen 325 Mg Tab) 650 mg PO Q4H PRN PRN Reason: Pain (Mild 1-3)/fever Last Admin: 01/31/21 10:20 Dose: 650 mg Documented by: Amoxicillin/Clavulanate Potassium (Amoxicillin/Clavulanate K 500-125 Mg Tab) 1 tab PO Q8H [facility] Atorvastatin Calcium (Atorvastatin 40 Mg Tab) 40 mg PO BEDTIME [facility] Last Admin: 02/01/21 20:35 Dose: 40 mg Documented by: Chlordiazepoxide HCl (Chlordiazepoxide 25 Mg Cap) 50 mg PO BID [facility] Last Admin: 02/02/21 08:11 Dose: 50 mg Documented by: Cholecalciferol (Cholecalciferol (Vitamin D3) 5,000 Unit Cap) 5,000 unit PO DAILY [facility] Last Admin: 02/02/21 08:10 Dose: 5,000 unit Documented by: Diltiazem HCl (Diltiazem Ir 60 Mg Tab) 120 mg PO Q8H [facility] Last Admin: 02/02/21 11:33 Dose: 120 mg Documented by: Gabapentin (Gabapentin 600 Mg Tab) 600 mg PO BEDTIME [facility] Last Admin: 02/01/21 20:35 Dose: 600 mg Documented by: Hydromorphone HCl (Hydromorphone 0.5 Mg/0.5 Ml Syringe) 0.5 mg IVPUSH Q1H PRN PRN Reason: Pain (moderate 4-6) Last Admin: 02/02/21 03:33 Dose: 0.5 mg Documented by: Diltiazem HCl 100 mg/ Sodium (Chloride) 100 mls @ 10 mls/hr IV TITRATE [facility]; Protocol Last Titration: 02/02/21 11:30 Dose: 0 mg/hr, 0 mls/hr Documented by: Insulin Human Lispro (Insulin Lispro 100 Unit/Ml 10 Ml Vial) 0 unit SUBCUT QIDACANDBED [facility] [facility]; Protocol Last Admin: 02/02/21 12:14 Dose: Not Given Documented by: Lorazepam (Lorazepam 2 Mg/Ml Sdv) 0 mg IV ASDIRECTED [facility]; Protocol Last Admin: 02/02/21 14:31 Dose: 1 mg Documented by: Lorazepam (Lorazepam 1 Mg Tab) 1 mg PO Q1H PRN PRN Reason: Withdrawal Symptoms Last Admin: 02/01/21 11:30 Dose: 1 mg Documented by: Metoprolol Tartrate (Metoprolol Tartrate 50 Mg Tab) 50 mg PO Q12HR [facility] Last Admin: 02/02/21 08:33 Dose: Not Given Documented by: Ondansetron HCl (Ondansetron 4 Mg/2 Ml Sdv) 4 mg IV Q4H PRN PRN Reason: Nausea/Vomiting Oxycodone HCl (Oxycodone 5 Mg Tab) 5 mg PO Q4H PRN PRN Reason: Pain (moderate 4-6) Last Admin: 02/01/21 15:14 Dose: 5 mg Documented by: Pantoprazole Sodium (Pantoprazole 40 Mg Tab.Cr) 40 mg PO ACBREAKFAST [facility] Last Admin: 02/02/21 06:12 Dose: 40 mg Documented by: Rivaroxaban (Rivaroxaban 10 Mg Tab) 20 mg PO DAILY [facility] Last Admin: 02/02/21 08:11 Dose: 20 mg Documented by: Sodium Chloride (Sodium Chloride 0.9% 10 Ml Syringe) 10 ml FLUSH ASDIRECTED PRN PRN Reason: Keep Vein Open Last Admin: 01/30/21 10:32 Dose: 10 ml Documented by: Thiamine HCl (Thiamine 100 Mg Tab) 100 mg PO DAILY [facility] Last Admin: 02/02/21 08:10 Dose: 100 mg Documented by: Trazodone HCl (Trazodone 50 Mg Tab) 50 mg PO BEDTIME PRN PRN Reason: Sleep Vancomycin HCl (Pharmacy To Dose - Vancomycin) 1 dose .XX ASDIRECTED PRN PRN Reason: RX TO DOSE VANCO Discontinued Medications Cholecalciferol (Cholecalciferol (Vitamin D3) 5,000 Unit Tab) 5,000 unit PO DAILY [facility] Last Admin: 01/30/21 14:14 Dose: Not Given Documented by: Diltiazem HCl (Diltiazem 50 Mg/10 Ml Sdv) 10 mg IVPUSH ONETIME ONE Stop: 01/30/21 10:01 Last Admin: 01/30/21 10:07 Dose: 10 mg Documented by: Diltiazem HCl (Diltiazem Ir 60 Mg Tab) 120 mg PO TID [facility] Last Admin: 02/01/21 11:40 Dose: 120 mg Documented by: Diltiazem HCl (Diltiazem 50 Mg/10 Ml Sdv) 10 mg IVPUSH ONETIME ONE Stop: 02/02/21 06:00 Last Admin: 02/02/21 06:12 Dose: 10 mg Documented by: Folic Acid (Folic Acid 1 Mg Tab) 1 mg PO DAILY [facility] Stop: 02/01/21 09:01 Last Admin: 02/01/21 08:21 Dose: 1 mg Documented by: Furosemide (Furosemide 20 Mg/2 Ml Vial) 20 mg IVPUSH NOW ONE Stop: 02/01/21 20:21 Last Admin: 02/01/21 20:35 Dose: 20 mg Documented by: Furosemide (Furosemide 20 Mg/2 Ml Vial) 20 mg IVPUSH NOW ONE Stop: 02/02/21 11:31 Last Admin: 02/02/21 11:33 Dose: 20 mg Documented by: Haloperidol (Haloperidol 1 Mg Tab) 2 mg PO ONETIME ONE Stop: 02/01/21 09:04 Last Admin: 02/01/21 17:12 Dose: Not Given Documented by: Haloperidol (Haloperidol 1 Mg Tab) 2 mg PO ONETIME ONE Stop: 02/01/21 19:09 Last Admin: 02/02/21 05:02 Dose: Not Given Documented by: Hydromorphone HCl (Hydromorphone 1 Mg/Ml Syringe) 1 mg IVPUSH ONETIME ONE Stop: 01/30/21 10:01 Last Admin: 01/30/21 10:07 Dose: 1 mg Documented by: Hydromorphone HCl (Hydromorphone 0.5 Mg/0.5 Ml Syringe) 0.5 mg IVPUSH ONETIME ONE Stop: 01/30/21 12:01 Last Admin: 01/30/21 12:07 Dose: 0.5 mg Documented by: Sodium Chloride (Normal Saline) 1,000 mls @ 125 mls/hr IV ASDIRECTED [facility] Last Infusion: 01/30/21 12:08 Dose: 125 mls/hr Documented by: Sodium Chloride (Normal Saline) 1,000 mls @ 999 mls/hr IV ONETIME ONE Stop: 01/30/21 12:00 Last Admin: 01/30/21 11:00 Dose: 999 mls/hr Documented by: Magnesium Sulfate 2 gm/ Premix 50 mls @ 25 mls/hr IV ONETIME ONE Stop: 01/30/21 15:28 Last Admin: 01/30/21 14:02 Dose: 25 mls/hr Documented by: Lactated Ringer's (Ringers, Lactated) 1,000 mls @ 100 mls/hr IV ASDIRECTED [facility] Last Infusion: 01/31/21 17:35 Dose: 75 mls/hr Documented by: Lactated Ringer's (Ringers, Lactated) 1,000 mls @ 1,000 mls/hr IV .BOLUS ONE Stop: 01/31/21 09:44 Last Admin: 01/31/21 08:54 Dose: 1,000 mls/hr Documented by: Lactated Ringer's (Ringers, Lactated) 1,000 mls @ 1,000 mls/hr IV .BOLUS ONE Stop: 01/31/21 10:44 Last Admin: 01/31/21 10:10 Dose: 1,000 mls/hr Documented by: Piperacillin Sod/Tazobactam (Sod 4.5 gm/ Sodium Chloride) 100 mls @ 25 mls/hr IV Q8H [facility] Last Admin: 02/02/21 03:32 Dose: 25 mls/hr Documented by: Piperacillin Sod/Tazobactam (Sod 4.5 gm/ Sodium Chloride) 100 mls @ 200 mls/hr IV ONETIME ONE Stop: 01/31/21 12:29 Last Admin: 01/31/21 11:58 Dose: 200 mls/hr Documented by: Vancomycin HCl 2 gm/ Sodium (Chloride) 500 mls @ 250 mls/hr IV ONETIME ONE Stop: 01/31/21 13:59 Last Admin: 01/31/21 12:38 Dose: 250 mls/hr Documented by: Vancomycin HCl 1.75 gm/ Sodium (Chloride) 500 mls @ 250 mls/hr IV Q12H [facility] Stop: 02/02/21 14:00 Last Admin: 02/02/21 11:33 Dose: 250 mls/hr Documented by: Lactated Ringer's (Ringers, Lactated) 1,000 mls @ 75 mls/hr IV ASDIRECTED [facility] Last Infusion: 02/01/21 09:13 Dose: 20 mls/hr Documented by: Lactated Ringer's (Ringers, Lactated) 1,000 mls @ 20 mls/hr IV ASDIRECTED [facility] Last Admin: 02/01/21 14:00 Dose: 20 mls/hr Documented by: Magnesium Sulfate/Dextrose 1 (gm/ Premix) 100 mls @ 100 mls/hr IV ONETIME ONE Stop: 02/01/21 10:29 Last Admin: 02/01/21 09:18 Dose: 100 mls/hr Documented by: Magnesium Sulfate 2 gm/ Premix 50 mls @ 25 mls/hr IV ONETIME ONE Stop: 02/02/21 10:29 Last Admin: 02/02/21 08:17 Dose: 25 mls/hr Documented by: Metoprolol Succinate (Metoprolol Succinate 50 Mg Tab.Er) 50 mg PO DAILY [facility] Last Admin: 01/31/21 07:24 Dose: 50 mg Documented by: Multivitamins/Minerals/Vitamin C (Multivitamin Tab) 1 tab PO ONETIME ONE Stop: 01/30/21 13:38 Last Admin: 01/30/21 14:02 Dose: 1 tab Documented by: - Exam Quality Assessment: Supplemental Oxygen General: Alert, Oriented HEENT: Pupils Equal, Pupils Reactive, EOMI, Mucous Membr. Moist/[place] Neck: Supple Lungs: Decreased Breath Sounds, Crackles (left poserior.), Wheezing Cardiovascular: Irregular Rhythm, Tachycardia GI/Abdominal Exam: Normal Bowel Sounds, Soft, Non-Tender, No Organomegaly, No Distention, No Abnormal Bruit, No Mass, Pelvis Stable Back Exam: Normal Inspection, Full Range of Motion Extremities: Pedal Edema Skin: Warm, Dry, Intact Neurological: No New Focal Deficit Psy/Mental Status: Alert, Normal Affect, Normal Mood, Withdrawal Symptoms - Patient Data Lab Results Last 24 hrs: Laboratory Results - last 24 hr 02/01/21 02/01/21 02/02/21 Range/Units 17:29 21:06 05:36 WBC 7.70 (4.23-9.07) K/mm3 RBC 3.70 L (4.63-6.08) M/mm3 Hgb 10.9 L (13.7-17.5) gm/dl Hct 33.5 L (40.1-51.0) % MCV 90.5 (79.0-92.2) fl MCH 29.5 (25.7-32.2) pg MCHC 32.5 (32.2-35.5) g/dl RDW Std Deviation 50.9 H (35.1-43.9) fL Plt Count 138 L (163-337) K/mm3 MPV 9.4 (9.4-12.3) fl Neut % (Auto) 70.3 H (34.0-67.9) % Lymph % (Auto) 13.1 L (21.8-53.1) % [place] % (Auto) 14.0 H (5.3-12.2) % Eos % (Auto) 1.9 (0.8-7.0) Baso % (Auto) 0.3 (0.1-1.2) % Neut # (Auto) 5.41 H (1.78-5.38) K/mm3 Lymph # (Auto) 1.01 L (1.32-3.57) K/mm3 [place] # (Auto) 1.08 H (0.30-0.82) K/mm3 Eos # (Auto) 0.15 (0.04-0.54) K/mm3 Baso # (Auto) 0.02 (0.01-0.08) K/mm3 Sodium (136-145) mEq/L Potassium (3.5-5.1) mEq/L Chloride (98-107) mEq/L Carbon Dioxide (21-32) mEq/L Anion Gap (5-15) BUN (7-18) mg/dL Creatinine (0.7-1.3) mg/dL Est Cr Clr Drug Dosing mL/min Estimated GFR (MDRD) (>60) mL/min BUN/Creatinine Ratio (14-18) Glucose (70-99) mg/dL POC Glucose 125 H 91 (70-99) mg/dL Calcium (8.5-10.1) mg/dL Magnesium (1.8-2.4) mg/dL Total Bilirubin (0.2-1.0) mg/dL AST (15-37) U/L ALT (16-63) U/L Alkaline Phosphatase (46-116) U/L NT-Pro-B Natriuret Pep (0-125) pg/mL Total Protein (6.4-8.2) g/dl Albumin (3.4-5.0) g/dl Globulin gm/dL Albumin/Globulin Ratio (1-2) 02/02/21 02/02/21 02/02/21 Range/Units 05:36 05:36 08:09 WBC (4.23-9.07) K/mm3 RBC (4.63-6.08) M/mm3 Hgb (13.7-17.5) gm/dl Hct (40.1-51.0) % MCV (79.0-92.2) fl MCH (25.7-32.2) pg MCHC (32.2-35.5) g/dl RDW Std Deviation (35.1-43.9) fL Plt Count (163-337) K/mm3 MPV (9.4-12.3) fl Neut % (Auto) (34.0-67.9) % Lymph % (Auto) (21.8-53.1) % [place] % (Auto) (5.3-12.2) % Eos % (Auto) (0.8-7.0) Baso % (Auto) (0.1-1.2) % Neut # (Auto) (1.78-5.38) K/mm3 Lymph # (Auto) (1.32-3.57) K/mm3 [place] # (Auto) (0.30-0.82) K/mm3 Eos # (Auto) (0.04-0.54) K/mm3 Baso # (Auto) (0.01-0.08) K/mm3 Sodium 138 (136-145) mEq/L Potassium 3.6 (3.5-5.1) mEq/L Chloride 103 (98-107) mEq/L Carbon Dioxide 26 (21-32) mEq/L Anion Gap 12.6 (5-15) BUN 6 L (7-18) mg/dL Creatinine 0.9 (0.7-1.3) mg/dL Est Cr Clr Drug Dosing 83.39 mL/min Estimated GFR (MDRD) > 60 (>60) mL/min BUN/Creatinine Ratio 6.7 L (14-18) Glucose 104 H (70-99) mg/dL POC Glucose 91 (70-99) mg/dL Calcium 8.3 L (8.5-10.1) mg/dL Magnesium 1.6 L (1.8-2.4) mg/dL Total Bilirubin 1.4 H (0.2-1.0) mg/dL AST 34 (15-37) U/L ALT 44 (16-63) U/L Alkaline Phosphatase 56 (46-116) U/L NT-Pro-B Natriuret Pep 3076 H (0-125) pg/mL Total Protein 6.0 L (6.4-8.2) g/dl Albumin 2.5 L (3.4-5.0) g/dl Globulin 3.5 gm/dL Albumin/Globulin Ratio 0.7 L (1-2) /01/18 Range/Units 10:59 WBC (4.23-9.07) K/mm3 RBC (4.63-6.08) M/mm3 Hgb (13.7-17.5) gm/dl Hct (40.1-51.0) % MCV (79.0-92.2) fl MCH (25.7-32.2) pg MCHC (32.2-35.5) g/dl RDW Std Deviation (35.1-43.9) fL Plt Count (163-337) K/mm3 MPV (9.4-12.3) fl Neut % (Auto) (34.0-67.9) % Lymph % (Auto) (21.8-53.1) % [place] % (Auto) (5.3-12.2) % Eos % (Auto) (0.8-7.0) Baso % (Auto) (0.1-1.2) % Neut # (Auto) (1.78-5.38) K/mm3 Lymph # (Auto) (1.32-3.57) K/mm3 [place] # (Auto) (0.30-0.82) K/mm3 Eos # (Auto) (0.04-0.54) K/mm3 Baso # (Auto) (0.01-0.08) K/mm3 Sodium (136-145) mEq/L Potassium (3.5-5.1) mEq/L Chloride (98-107) mEq/L Carbon Dioxide (21-32) mEq/L Anion Gap (5-15) BUN (7-18) mg/dL Creatinine (0.7-1.3) mg/dL Est Cr Clr Drug Dosing mL/min Estimated GFR (MDRD) (>60) mL/min BUN/Creatinine Ratio (14-18) Glucose (70-99) mg/dL POC Glucose 140 H (70-99) mg/dL Calcium (8.5-10.1) mg/dL Magnesium (1.8-2.4) mg/dL Total Bilirubin (0.2-1.0) mg/dL AST (15-37) U/L ALT (16-63) U/L Alkaline Phosphatase (46-116) U/L NT-Pro-B Natriuret Pep (0-125) pg/mL Total Protein (6.4-8.2) g/dl Albumin (3.4-5.0) g/dl Globulin gm/dL Albumin/Globulin Ratio (1-2) Result Diagrams: 02/02/21 05:36 02/02/21 05:36 [place] Results Last 24 hrs: Microbiology 01/30/21 14:00 Aerobic Blood Culture - Preliminary Blood - Venous - Lab Draw NO GROWTH AFTER 3 DAYS Anaerobic Blood Culture - Preliminary NO GROWTH AFTER 3 DAYS 01/30/21 13:57 Aerobic Blood Culture - Preliminary Blood - Venous NO GROWTH AFTER 3 DAYS Anaerobic Blood Culture - Preliminary NO GROWTH AFTER 3 DAYS 01/31/21 08:25 Aerobic Blood Culture - Preliminary Blood - Venous - Lab Draw NO GROWTH AFTER 2 DAYS Anaerobic Blood Culture - Preliminary NO GROWTH AFTER 2 DAYS 01/31/21 07:55 Aerobic Blood Culture - Preliminary Blood - Venous NO GROWTH AFTER 2 DAYS Anaerobic Blood Culture - Preliminary NO GROWTH AFTER 2 DAYS Sepsis Event Note - Evaluation Sepsis Screening Result: Sepsis Risk - Focused Exam Vital Signs: Vital Signs Temp Pulse Resp BP BP Pulse Ox Pulse Ox 02/02/21 12:00 36.7 C 25 H 97/82 91 L 02/02/21 08:00 36.6 C 22 H 125/86 92 L 02/02/21 06:12 132 H 126/95 H 02/02/21 06:00 92 L 02/02/21 05:01 24 H 91 L 02/02/21 05:00 26 H 136/94 H 91 L 02/02/21 04:59 25 H 91 L 02/02/21 04:45 25 H 140/103 H 92 L 02/02/21 04:44 24 H 91 L 02/02/21 04:30 26 H 144/93 H 92 L 02/02/21 04:29 26 H 92 L - Problem List & Annotations (1) Chronic atrial fibrillation with RVR SNOMED Code(s): 772620798, 716481479145910 Code(s): I48.20 - CHRONIC ATRIAL FIBRILLATION, UNSPECIFIED Status: Acute Priority: Medium Current Visit: Yes Onset Date: ~01/31/21 Annotation/Comment:: on po cardizem and metoprolol. (2) Alcoholism SNOMED Code(s): 7299270 Code(s): F10.20 - ALCOHOL DEPENDENCE, UNCOMPLICATED Status: Acute Priority: High Current Visit: No Onset Date: ~01/31/21 Annotation/Comment:: longterm treatment options to be discussed (3) CHF (congestive heart failure) SNOMED Code(s): 33819921 Code(s): I50.9 - HEART FAILURE, UNSPECIFIED Status: Acute Priority: Medium Current Visit: No Onset Date: ~01/31/21 Qualifiers: Heart failure type: right-sided Heart failure chronicity: acute on chronic Qualified Code(s): I50.813 - Acute on chronic right heart failure Annotation/Comment:: lasix needed and still overloaded. cont diuresis,start losartan - Problem List Review Problem List Initiated/Reviewed/Updated: Yes - My Orders Last 24 Hours: My Active Orders 02/01/21 19:30 Diltiazem IR [Cardizem] 120 mg PO Q8H 02/02/21 10:42 PT Evaluation and Treatment [CONS] Routine 02/03/21 07:00 Amoxicillin/Clavulanate K [Augmentin 500 MG\125 MG] 1 tab PO Q8H - Assessment Assessment:: 02/01/21 afebrile/ heart rate 100-150 on cardizem drip. beta maday given this am only . b.p 150/87 slept fair/ ciwas high 16-20. needs freq reorientation and assistance. mildly bossy but can be redirected. trying to get out of bed. i/os reviewed. weight increased. p.e. mildly combative. cor irreg irreg. nad 09/05 syst murmur with prothetic click over t 2 interspace. no jvd. lungs clear equal. abd benign. no spleen noted.no liver or ascites. m.s normal . skin normal . neuro: confused and wants bed bar down . tremor mild . lab reviewed. chest xray reviewed lll infitrate. on zosyn and vanco assess: etoh widthdrawl mod to severe and starated librium as requiring alot of lorazepam. consider haldol 1-2 mg if does not respond favorably . d.t signs moderate. ciwas high . lll pneumonia cont current treatment. chf mild to moiderate an monitor cv satus. b.p high but better. afib with rvr and aortic proth. valve. awaiting echo but cont current treatment . no obvious increased chf signs. chf controlled. crf stable and gfr mildly decreased. acute ami ruled out. boh 02/02/21 afebrile/ i/os still elavated 4000/4600 lasix x one. resp : mild wheezes and increased rate. feels sob.mild coughing. cor: afib rate increased to 140-180 and drip restarted and p.o cardizem held until this am . now 120. murmur unchanged no s3 s4 abd: benign. neuro:on librium and ativan with improved ciwa scores. occasional agitation but feels better this am mild tremoring . no sweating and good appetite this am . lab pending bnp [id number]. chest xray increased vasc markings and edema infiltrate unchanged. assess//plan pneumonia improving zosyn and vanc./cont x 24 hours then change if pneumonia improving/ cbc and crp improved. chf worsening but mainly imbalanced and high initial fluids and responding to lasix. echo ordered and pending. murmur unchanged./ no acute injury. rt leg cellulitis resolved oa changes stable no long track findings. etoh width drawal stabilizing and weaning ativan and haldol. 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 cont beta maday at same dose but started losartan. renal insuff stable good response to diuretics. boh - Plan Plan:: Assessment: This is a 60M with PMHx of Type II DM, Atrial Fibrillation (on xarelto and metoprolol), hx of alcoholism presenting with Atrial Fibrillation w/RVR. He was given IVF and given diltiazem bolus infusion and started on IV continuous infusion. 1. Afib w/RVR; hx of Afib 2. Hx of Alcoholism and now with early alcohol withdrawal syndrome 3. SIRS syndrome; tachycardia/leukocytosis; rule out sepsis -> now with fever and lactic acidosis 4. Hx of Type II DM 5. Acute alcohol withdrawal Plan -continue IV diltiazem in fusion -continue metoprolol PO -continue xarelto -CIWA alcohol withdrawal protocol -folate/thiamine -IVF -rechecked lactate elevated, will check cxr and UA; IVF; start empiric zosyn and vanco; repeat blood cx -SSI hold metformin -check TSH -echo; given alcohol hx; eval for alcohol induced cardiomyopathy Code Status-Full code DVT ppx-Xarelto Dispo-Anticipated discharge to home in 2-3 days 02/01/21 afebrile/ heart rate 100-150 on cardizem drip. beta maday given this am only . b.p 150/87 slept fair/ ciwas high 16-20. needs freq reorientation and assistance. mildly bossy but can be redirected. trying to get out of bed. i/os reviewed. weight increased. p.e. mildly combative. cor irreg irreg. nad 2/6 syst murmur with prothetic click over t 2 interspace. no jvd. lungs clear equal. abd benign. no spleen noted.no liver or ascites. m.s normal . skin normal . neuro: confused and wants bed bar down . tremor mild . lab reviewed. chest xray reviewed lll infitrate. on zosyn and vanco assess: etoh widthdrawl mod to severe and starated librium as requiring alot of lorazepam. consider haldol 1-2 mg if does not respond favorably . d.t signs moderate. ciwas high . lll pneumonia cont current treatment. chf mild to moiderate an monitor cv satus. b.p high but better. afib with rvr and aortic proth. valve. awaiting echo but cont current treatment . no obvious increased chf signs. chf controlled. crf stable and gfr mildly decreased. acute ami ruled out. boh 02/02/21 afebrile/ i/os still elavated 4000/4600 lasix x one. resp : mild wheezes and increased rate. feels sob.mild coughing. cor: afib rate increased to 140-180 and drip restarted and p.o cardizem held until this am . now 120. murmur unchanged no s3 s4 abd: benign. neuro:on librium and ativan with improved ciwa scores. occasional agitat ion but feels better this am mild tremoring . no sweating and good appetite this am . lab pending bnp [id number]. chest xray increased vasc markings and edema infiltrate unchanged. assess//plan pneumonia improving zosyn and vanc./cont x 24 hours then change if pneumonia improving/ cbc and crp improved. chf worsening but mainly imbalanced and high initial fluids and responding to lasix. echo ordered and pending. murmur unchanged./ no acute injury. rt leg cellulitis resolved oa changes stable no long track findings. etoh width drawal stabilizing and weaning ativan and haldol. 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 cont beta maday at same dose but started losartan. renal insuff stable good response to diuretics. boh
[2021-02-02] MEDS: Furosemide 20 MG Tab PO SCH (16:53)
[2021-02-02] MEDS: Acetaminophen 325 MG Tab PO PRN (17:27)
[2021-02-02] MEDS: Gabapentin 600 MG Tab PO SCH (20:40)
[2021-02-02] MEDS: atorvaSTATin 40 MG Tab PO SCH (20:40)
[2021-02-02] MEDS: Magnesium Oxide 400 MG Tab PO SCH (20:41)
[2021-02-02] MEDS ORDERED: chlordiazePOXIDE 25 MG Cap PO SCH (21:00)
[2021-02-03] MEDS: LORazepam 2 MG/ML SDV IV SCH ×3 (00:34→17:52)
[2021-02-03] MEDS: Diltiazem IR 60 MG Tab PO SCH ×3 (03:04→19:30)
[2021-02-03] MEDS: oxyCODONE 5 MG Tab PO PRN ×2 (03:04→07:28)
[2021-02-03] MEDS: Diltiazem 100 MG in Sodium Chloride 0.9% 100 ML IV SCH (04:50)
[2021-02-03] MEDS: Pantoprazole 40 MG Tab.CR PO SCH (05:58)
[2021-02-03] MEDS: Insulin Lispro 100 UNIT/ML 10 ML Vial SUBCUT SCH ×4 (06:29→22:01)
[2021-02-03] MEDS: Furosemide 20 MG Tab PO SCH (08:01)
[2021-02-03] MEDS: Thiamine 100 MG Tab PO SCH (08:01)
[2021-02-03] MEDS: Metoprolol Tartrate 50 MG Tab PO SCH ×2 (08:02→21:21)
[2021-02-03] MEDS: Magnesium Oxide 400 MG Tab PO SCH ×2 (08:03→21:25)
[2021-02-03] MEDS: chlordiazePOXIDE 25 MG Cap PO SCH ×2 (08:03→21:20)
[2021-02-03] MEDS: Losartan 25 MG Tab PO SCH (08:03)
[2021-02-03] MEDS: Amoxicillin/Clavulanate K 500-125 MG Tab PO SCH ×3 (08:04→22:29)
[2021-02-03] MEDS: Rivaroxaban 10 MG Tab PO SCH (08:04)
[2021-02-03] MEDS: Cholecalciferol (Vitamin D3) 5,000 UNIT Cap PO SCH (08:04)
--- NOTE | 2021-02-03 08:22 | PCM.PN ---
- General Info Date of Service: 02/03/21 Admission Dx/Problem (Free Text): 1. Afib w/RVR; hx of Afib 2. Hx of Alcoholism and now with alcohol withdrawal syndrome 3. SIRS syndrome; tachycardia/leukocytosis 4. Hx of Type II DM Subjective Update: Patient does not endorse any specific complaints. Nursing concerns for continued tachycardia despite metoprolol, oral Cardizem and IV Cardizem infusion. No aggressive behavior and is not disrupting his own care. Saturating well on supplemental oxygen. Day 4 out from last drink. - Patient Data Vitals - Most Recent: Last Vital Signs Temp 97.9 F 02/03/21 04:00 Pulse 111 H 02/03/21 08:02 Resp 23 H 02/03/21 04:00 BP 132/98 H 02/03/21 08:03 Pulse Ox 91 L 02/03/21 04:00 Weight - Most Recent: 254 lb 4.8 oz I&O - Last 24 Hours: Intake & Output 02/02/21 02/03/21 02/03/21 22:59 06:59 14:59 Intake Total 1796 489 Output Total 850 450 Balance 946 39 Lab Results Last 24 Hours: Laboratory Results - last 24 hr 02/02/21 02/02/21 02/02/21 Range/Units 08:09 10:59 16:46 WBC (4.23-9.07) K/mm3 RBC (4.63-6.08) M/mm3 Hgb (13.7-17.5) gm/dl Hct (40.1-51.0) % MCV (79.0-92.2) fl MCH (25.7-32.2) pg MCHC (32.2-35.5) g/dl RDW Std Deviation (35.1-43.9) fL Plt Count (163-337) K/mm3 MPV (9.4-12.3) fl Neut % (Auto) (34.0-67.9) % Lymph % (Auto) (21.8-53.1) % [place] % (Auto) (5.3-12.2) % Eos % (Auto) (0.8-7.0) Baso % (Auto) (0.1-1.2) % Neut # (Auto) (1.78-5.38) K/mm3 Lymph # (Auto) (1.32-3.57) K/mm3 [place] # (Auto) (0.30-0.82) K/mm3 Eos # (Auto) (0.04-0.54) K/mm3 Baso # (Auto) (0.01-0.08) K/mm3 Sodium (136-145) mEq/L Potassium (3.5-5.1) mEq/L Chloride (98-107) mEq/L Carbon Dioxide (21-32) mEq/L Anion Gap (5-15) BUN (7-18) mg/dL Creatinine (0.7-1.3) mg/dL Est Cr Clr Drug Dosing mL/min Estimated GFR (MDRD) (>60) mL/min BUN/Creatinine Ratio (14-18) Glucose (70-99) mg/dL POC Glucose 91 140 H 137 H (70-99) mg/dL Calcium (8.5-10.1) mg/dL Magnesium (1.8-2.4) mg/dL Total Bilirubin (0.2-1.0) mg/dL AST (15-37) U/L ALT (16-63) U/L Alkaline Phosphatase (46-116) U/L Total Protein (6.4-8.2) g/dl Albumin (3.4-5.0) g/dl Globulin gm/dL Albumin/Globulin Ratio (1-2) 02/02/21 02/03/21 02/03/21 Range/Units 20:47 05:45 05:45 WBC 7.34 (4.23-9.07) K/mm3 RBC 3.57 L (4.63-6.08) M/mm3 Hgb 10.5 L (13.7-17.5) gm/dl Hct 32.4 L (40.1-51.0) % MCV 90.8 (79.0-92.2) fl MCH 29.4 (25.7-32.2) pg MCHC 32.4 (32.2-35.5) g/dl RDW Std Deviation 51.2 H (35.1-43.9) fL Plt Count 173 (163-337) K/mm3 MPV 9.5 (9.4-12.3) fl Neut % (Auto) 63.2 (34.0-67.9) % Lymph % (Auto) 15.3 L (21.8-53.1) % [place] % (Auto) 17.8 H (5.3-12.2) % Eos % (Auto) 3.0 (0.8-7.0) Baso % (Auto) 0.4 (0.1-1.2) % Neut # (Auto) 4.64 (1.78-5.38) K/mm3 Lymph # (Auto) 1.12 L (1.32-3.57) K/mm3 [place] # (Auto) 1.31 H (0.30-0.82) K/mm3 Eos # (Auto) 0.22 (0.04-0.54) K/mm3 Baso # (Auto) 0.03 (0.01-0.08) K/mm3 Sodium 138 (136-145) mEq/L Potassium 3.3 L (3.5-5.1) mEq/L Chloride 103 (98-107) mEq/L Carbon Dioxide 27 (21-32) mEq/L Anion Gap 11.3 (5-15) BUN 7 (7-18) mg/dL Creatinine 0.9 (0.7-1.3) mg/dL Est Cr Clr Drug Dosing 83.39 mL/min Estimated GFR (MDRD) > 60 (>60) mL/min BUN/Creatinine Ratio 7.8 L (14-18) Glucose 99 (70-99) mg/dL POC Glucose 107 H (70-99) mg/dL Calcium 8.0 L (8.5-10.1) mg/dL Magnesium 1.7 L (1.8-2.4) mg/dL Total Bilirubin 0.9 (0.2-1.0) mg/dL AST 37 (15-37) U/L ALT 47 (16-63) U/L Alkaline Phosphatase 57 (46-116) U/L Total Protein 6.0 L (6.4-8.2) g/dl Albumin 2.4 L (3.4-5.0) g/dl Globulin 3.6 gm/dL Albumin/Globulin Ratio 0.7 L (1-2) // Range/Units 06:27 WBC (4.23-9.07) K/mm3 RBC (4.63-6.08) M/mm3 Hgb (13.7-17.5) gm/dl Hct (40.1-51.0) % MCV (79.0-92.2) fl MCH (25.7-32.2) pg MCHC (32.2-35.5) g/dl RDW Std Deviation (35.1-43.9) fL Plt Count (163-337) K/mm3 MPV (9.4-12.3) fl Neut % (Auto) (34.0-67.9) % Lymph % (Auto) (21.8-53.1) % [place] % (Auto) (5.3-12.2) % Eos % (Auto) (0.8-7.0) Baso % (Auto) (0.1-1.2) % Neut # (Auto) (1.78-5.38) K/mm3 Lymph # (Auto) (1.32-3.57) K/mm3 [place] # (Auto) (0.30-0.82) K/mm3 Eos # (Auto) (0.04-0.54) K/mm3 Baso # (Auto) (0.01-0.08) K/mm3 Sodium (136-145) mEq/L Potassium (3.5-5.1) mEq/L Chloride (98-107) mEq/L Carbon Dioxide (21-32) mEq/L Anion Gap (5-15) BUN (7-18) mg/dL Creatinine (0.7-1.3) mg/dL Est Cr Clr Drug Dosing mL/min Estimated GFR (MDRD) (>60) mL/min BUN/Creatinine Ratio (14-18) Glucose (70-99) mg/dL POC Glucose 97 (70-99) mg/dL Calcium (8.5-10.1) mg/dL Magnesium (1.8-2.4) mg/dL Total Bilirubin (0.2-1.0) mg/dL AST (15-37) U/L ALT (16-63) U/L Alkaline Phosphatase (46-116) U/L Total Protein (6.4-8.2) g/dl Albumin (3.4-5.0) g/dl Globulin gm/dL Albumin/Globulin Ratio (1-2) Nelson Results Last 24 Hours: Microbiology 01/31/21 07:55 Aerobic Blood Culture - Preliminary Blood - Venous NO GROWTH AFTER 3 DAYS Anaerobic Blood Culture - Preliminary NO GROWTH AFTER 3 DAYS 01/30/21 14:00 Aerobic Blood Culture - Preliminary Blood - Venous - Lab Draw NO GROWTH AFTER 3 DAYS Anaerobic Blood Culture - Preliminary NO GROWTH AFTER 3 DAYS 01/30/21 13:57 Aerobic Blood Culture - Preliminary Blood - Venous NO GROWTH AFTER 3 DAYS Anaerobic Blood Culture - Preliminary NO GROWTH AFTER 3 DAYS 01/31/21 08:25 Aerobic Blood Culture - Preliminary Blood - Venous - Lab Draw NO GROWTH AFTER 2 DAYS Anaerobic Blood Culture - Preliminary NO GROWTH AFTER 2 DAYS Med Orders - Current: Current Medications Acetaminophen (Acetaminophen 325 Mg Tab) 650 mg PO Q4H PRN PRN Reason: Pain (Mild 1-3)/fever Last Admin: 02/02/21 17:27 Dose: 650 mg Documented by: Amoxicillin/Clavulanate Potassium (Amoxicillin/Clavulanate K 500-125 Mg Tab) 1 tab PO Q8H [facility] Last Admin: 02/03/21 08:04 Dose: 1 tab Documented by: Atorvastatin Calcium (Atorvastatin 40 Mg Tab) 40 mg PO BEDTIME [facility] Last Admin: 02/02/21 20:40 Dose: 40 mg Documented by: Chlordiazepoxide HCl (Chlordiazepoxide 25 Mg Cap) 50 mg PO BID [facility] Last Admin: 02/03/21 08:03 Dose: 50 mg Documented by: Cholecalciferol (Cholecalciferol (Vitamin D3) 5,000 Unit Cap) 5,000 unit PO DAILY [facility] Last Admin: 02/03/21 08:04 Dose: 5,000 unit Documented by: Diltiazem HCl (Diltiazem Ir 60 Mg Tab) 120 mg PO Q8H [facility] Last Admin: 02/03/21 03:04 Dose: 120 mg Documented by: Furosemide (Furosemide 20 Mg Tab) 20 mg PO DAILY [facility] Last Admin: 02/03/21 08:01 Dose: 20 mg Documented by: Gabapentin (Gabapentin 600 Mg Tab) 600 mg PO BEDTIME [facility] Last Admin: 02/02/21 20:40 Dose: 600 mg Documented by: Hydromorphone HCl (Hydromorphone 0.5 Mg/0.5 Ml Syringe) 0.5 mg IVPUSH Q1H PRN PRN Reason: Pain (moderate 4-6) Last Admin: 02/02/21 20:41 Dose: 0.5 mg Documented by: Diltiazem HCl 100 mg/ Sodium (Chloride) 100 mls @ 10 mls/hr IV TITRATE [facility]; Protocol Last Admin: 02/03/21 04:50 Dose: 5 mg/hr, 5 mls/hr Documented by: Insulin Human Lispro (Insulin Lispro 100 Unit/Ml 10 Ml Vial) 0 unit SUBCUT QIDACANDBED [facility]; Protocol Last Admin: 02/03/21 06:29 Dose: Not Given Documented by: Lorazepam (Lorazepam 2 Mg/Ml Sdv) 0 mg IV ASDIRECTED [facility]; Protocol Last Admin: 02/03/21 05:58 Dose: 1 mg Documented by: Lorazepam (Lorazepam 1 Mg Tab) 1 mg PO Q1H PRN PRN Reason: Withdrawal Symptoms Last Admin: 02/01/21 11:30 Dose: 1 mg Documented by: Losartan Potassium (Losartan 25 Mg Tab) 25 mg PO DAILY [facility] Last Admin: 02/03/21 08:03 Dose: 25 mg Documented by: Magnesium Oxide (Magnesium Oxide 400 Mg Tab) 400 mg PO BID [facility] Last Admin: 02/03/21 08:03 Dose: 400 mg Documented by: Metoprolol Tartrate (Metoprolol Tartrate 50 Mg Tab) 75 mg PO Q12HR [facility] Last Admin: 02/03/21 08:02 Dose: 75 mg Documented by: Ondansetron HCl (Ondansetron 4 Mg/2 Ml Sdv) 4 mg IV Q4H PRN PRN Reason: Nausea/Vomiting Oxycodone HCl (Oxycodone 5 Mg Tab) 5 mg PO Q4H PRN PRN Reason: Pain (moderate 4-6) Last Admin: 02/03/21 07:28 Dose: 5 mg Documented by: Pantoprazole Sodium (Pantoprazole 40 Mg Tab.Cr) 40 mg PO ACBREAKFAST [facility] Last Admin: 02/03/21 05:58 Dose: 40 mg Documented by: Rivaroxaban (Rivaroxaban 10 Mg Tab) 20 mg PO DAILY [facility] Last Admin: 02/03/21 08:04 Dose: 20 mg Documented by: Sodium Chloride (Sodium Chloride 0.9% 10 Ml Syringe) 10 ml FLUSH ASDIRECTED PRN PRN Reason: Keep Vein Open Last Admin: 01/30/21 10:32 Dose: 10 ml Documented by: Thiamine HCl (Thiamine 100 Mg Tab) 100 mg PO DAILY [facility] Last Admin: 02/03/21 08:01 Dose: 100 mg Documented by: Trazodone HCl (Trazodone 50 Mg Tab) 50 mg PO BEDTIME PRN PRN Reason: Sleep Discontinued Medications Chlordiazepoxide HCl (Chlordiazepoxide 25 Mg Cap) 25 mg PO BID [facility] Last Admin: 02/02/21 20:41 Dose: Not Given Documented by: Cholecalciferol (Cholecalciferol (Vitamin D3) 5,000 Unit Tab) 5,000 unit PO DAILY [facility] Last Admin: 01/30/21 14:14 Dose: Not Given Documented by: Diltiazem HCl (Diltiazem 50 Mg/10 Ml Sdv) 10 mg IVPUSH ONETIME ONE Stop: 01/30/21 10:01 Last Admin: 01/30/21 10:07 Dose: 10 mg Documented by: Diltiazem HCl (Diltiazem Ir 60 Mg Tab) 120 mg PO TID [facility] Last Admin: 02/01/21 11:40 Dose: 120 mg Documented by: Diltiazem HCl (Diltiazem 50 Mg/10 Ml Sdv) 10 mg IVPUSH ONETIME ONE Stop: 02/02/21 06:00 Last Admin: 02/02/21 06:12 Dose: 10 mg Documented by: Folic Acid (Folic Acid 1 Mg Tab) 1 mg PO DAILY [facility] Stop: 02/01/21 09:01 Last Admin: 02/01/21 08:21 Dose: 1 mg Documented by: Furosemide (Furosemide 20 Mg/2 Ml Vial) 20 mg IVPUSH NOW ONE Stop: 02/01/21 20:21 Last Admin: 02/01/21 20:35 Dose: 20 mg Documented by: Furosemide (Furosemide 20 Mg/2 Ml Vial) 20 mg IVPUSH NOW ONE Stop: 02/02/21 11:31 Last Admin: 02/02/21 11:33 Dose: 20 mg Documented by: Haloperidol (Haloperidol 1 Mg Tab) 2 mg PO ONETIME ONE Stop: 02/01/21 09:04 Last Admin: 02/01/21 17:12 Dose: Not Given Documented by: Haloperidol (Haloperidol 1 Mg Tab) 2 mg PO ONETIME ONE Stop: 02/01/21 19:09 Last Admin: 02/02/21 05:02 Dose: Not Given Documented by: Hydromorphone HCl (Hydromorphone 1 Mg/Ml Syringe) 1 mg IVPUSH ONETIME ONE Stop: 01/30/21 10:01 Last Admin: 01/30/21 10:07 Dose: 1 mg Documented by: Hydromorphone HCl (Hydromorphone 0.5 Mg/0.5 Ml Syringe) 0.5 mg IVPUSH ONETIME ONE Stop: 01/30/21 12:01 Last Admin: 01/30/21 12:07 Dose: 0.5 mg Documented by: Sodium Chloride (Normal Saline) 1,000 mls @ 125 mls/hr IV ASDIRECTED [facility] Last Infusion: 01/30/21 12:08 Dose: 125 mls/hr Documented by: Sodium Chloride (Normal Saline) 1,000 mls @ 999 mls/hr IV ONETIME ONE Stop: 01/30/21 12:00 Last Admin: 01/30/21 11:00 Dose: 999 mls/hr Documented by: Magnesium Sulfate 2 gm/ Premix 50 mls @ 25 mls/hr IV ONETIME ONE Stop: 01/30/21 15:28 Last Admin: 01/30/21 14:02 Dose: 25 mls/hr Documented by: Lactated Ringer's (Ringers, Lactated) 1,000 mls @ 100 mls/hr IV ASDIRECTED [facility] Last Infusion: 01/31/21 17:35 Dose: 75 mls/hr Documented by: Lactated Ringer's (Ringers, Lactated) 1,000 mls @ 1,000 mls/hr IV .BOLUS ONE Stop: 01/31/21 09:44 Last Admin: 01/31/21 08:54 Dose: 1,000 mls/hr Documented by: Lactated Ringer's (Ringers, Lactated) 1,000 mls @ 1,000 mls/hr IV .BOLUS ONE Stop: 01/31/21 10:44 Last Admin: 01/31/21 10:10 Dose: 1,000 mls/hr Documented by: Piperacillin Sod/Tazobactam (Sod 4.5 gm/ Sodium Chloride) 100 mls @ 25 mls/hr IV Q8H [facility] Last Admin: 02/02/21 03:32 Dose: 25 mls/hr Documented by: Piperacillin Sod/Tazobactam (Sod 4.5 gm/ Sodium Chloride) 100 mls @ 200 mls/hr IV ONETIME ONE Stop: 01/31/21 12:29 Last Admin: 01/31/21 11:58 Dose: 200 mls/hr Documented by: Vancomycin HCl 2 gm/ Sodium (Chloride) 500 mls @ 250 mls/hr IV ONETIME ONE Stop: 01/31/21 13:59 Last Admin: 01/31/21 12:38 Dose: 250 mls/hr Documented by: Vancomycin HCl 1.75 gm/ Sodium (Chloride) 500 mls @ 250 mls/hr IV Q12H [facility] Stop: 02/02/21 14:00 Last Admin: 02/02/21 11:33 Dose: 250 mls/hr Documented by: Lactated Ringer's (Ringers, Lactated) 1,000 mls @ 75 mls/hr IV ASDIRECTED [facility] Last Infusion: 02/01/21 09:13 Dose: 20 mls/hr Documented by: Lactated Ringer's (Ringers, Lactated) 1,000 mls @ 20 mls/hr IV ASDIRECTED [facility] Last Admin: 02/01/21 14:00 Dose: 20 mls/hr Documented by: Magnesium Sulfate/Dextrose 1 (gm/ Premix) 100 mls @ 100 mls/hr IV ONETIME ONE Stop: 02/01/21 10:29 Last Admin: 02/01/21 09:18 Dose: 100 mls/hr Documented by: Magnesium Sulfate 2 gm/ Premix 50 mls @ 25 mls/hr IV ONETIME ONE Stop: 02/02/21 10:29 Last Admin: 02/02/21 08:17 Dose: 25 mls/hr Documented by: Metoprolol Succinate (Metoprolol Succinate 50 Mg Tab.Er) 50 mg PO DAILY [facility] Last Admin: 01/31/21 07:24 Dose: 50 mg Documented by: Metoprolol Tartrate (Metoprolol Tartrate 50 Mg Tab) 50 mg PO Q12HR [facility] Last Admin: 02/02/21 20:40 Dose: 50 mg Documented by: Multivitamins/Minerals/Vitamin C (Multivitamin Tab) 1 tab PO ONETIME ONE Stop: 01/30/21 13:38 Last Admin: 01/30/21 14:02 Dose: 1 tab Documented by: Vancomycin HCl (Pharmacy To Dose - Vancomycin) 1 dose .XX ASDIRECTED PRN PRN Reason: RX TO DOSE VANCO - Exam Quality Assessment: Supplemental Oxygen General: Alert, Cooperative, No Acute Distress Neck: Supple Lungs: Decreased Breath Sounds, Crackles Cardiovascular: Irregular Rhythm, Tachycardia (Atrial fibrillation with rapid ventricular rate) GI/Abdominal Exam: Normal Bowel Sounds, Soft, Non-Tender Extremities: Normal Inspection, Non-Tender, No Pedal Edema Skin: Warm, Dry, Intact Neurological: No New Focal Deficit - Patient Data Lab Results Last 24 hrs: Laboratory Results - last 24 hr 02/02/21 02/02/21 02/02/21 Range/Units 08:09 10:59 16:46 WBC (4.23-9.07) K/mm3 RBC (4.63-6.08) M/mm3 Hgb (13.7-17.5) gm/dl Hct (40.1-51.0) % MCV (79.0-92.2) fl MCH (25.7-32.2) pg MCHC (32.2-35.5) g/dl RDW Std Deviation (35.1-43.9) fL Plt Count (163-337) K/mm3 MPV (9.4-12.3) fl Neut % (Auto) (34.0-67.9) % Lymph % (Auto) (21.8-53.1) % [place] % (Auto) (5.3-12.2) % Eos % (Auto) (0.8-7.0) Baso % (Auto) (0.1-1.2) % Neut # (Auto) (1.78-5.38) K/mm3 Lymph # (Auto) (1.32-3.57) K/mm3 [place] # (Auto) (0.30-0.82) K/mm3 Eos # (Auto) (0.04-0.54) K/mm3 Baso # (Auto) (0.01-0.08) K/mm3 Sodium (136-145) mEq/L Potassium (3.5-5.1) mEq/L Chloride (98-107) mEq/L Carbon Dioxide (21-32) mEq/L Anion Gap (5-15) BUN (7-18) mg/dL Creatinine (0.7-1.3) mg/dL Est Cr Clr Drug Dosing mL/min Estimated GFR (MDRD) (>60) mL/min BUN/Creatinine Ratio (14-18) Glucose (70-99) mg/dL POC Glucose 91 140 H 137 H (70-99) mg/dL Calcium (8.5-10.1) mg/dL Magnesium (1.8-2.4) mg/dL Total Bilirubin (0.2-1.0) mg/dL AST (15-37) U/L ALT (16-63) U/L Alkaline Phosphatase (46-116) U/L Total Protein (6.4-8.2) g/dl Albumin (3.4-5.0) g/dl Globulin gm/dL Albumin/Globulin Ratio (1-2) 02/02/21 02/03/21 02/03/21 Range/Units 20:47 05:45 05:45 WBC 7.34 (4.23-9.07) K/mm3 RBC 3.57 L (4.63-6.08) M/mm3 Hgb 10.5 L (13.7-17.5) gm/dl Hct 32.4 L (40.1-51.0) % MCV 90.8 (79.0-92.2) fl MCH 29.4 (25.7-32.2) pg MCHC 32.4 (32.2-35.5) g/dl RDW Std Deviation 51.2 H (35.1-43.9) fL Plt Count 173 (163-337) K/mm3 MPV 9.5 (9.4-12.3) fl Neut % (Auto) 63.2 (34.0-67.9) % Lymph % (Auto) 15.3 L (21.8-53.1) % [place] % (Auto) 17.8 H (5.3-12.2) % Eos % (Auto) 3.0 (0.8-7.0) Baso % (Auto) 0.4 (0.1-1.2) % Neut # (Auto) 4.64 (1.78-5.38) K/mm3 Lymph # (Auto) 1.12 L (1.32-3.57) K/mm3 [place] # (Auto) 1.31 H (0.30-0.82) K/mm3 Eos # (Auto) 0.22 (0.04-0.54) K/mm3 Baso # (Auto) 0.03 (0.01-0.08) K/mm3 Sodium 138 (136-145) mEq/L Potassium 3.3 L (3.5-5.1) mEq/L Chloride 103 (98-107) mEq/L Carbon Dioxide 27 (21-32) mEq/L Anion Gap 11.3 (5-15) BUN 7 (7-18) mg/dL Creatinine 0.9 (0.7-1.3) mg/dL Est Cr Clr Drug Dosing 83.39 mL/min Estimated GFR (MDRD) > 60 (>60) mL/min BUN/Creatinine Ratio 7.8 L (14-18) Glucose 99 (70-99) mg/dL POC Glucose 107 H (70-99) mg/dL Calcium 8.0 L (8.5-10.1) mg/dL Magnesium 1.7 L (1.8-2.4) mg/dL Total Bilirubin 0.9 (0.2-1.0) mg/dL AST 37 (15-37) U/L ALT 47 (16-63) U/L Alkaline Phosphatase 57 (46-116) U/L Total Protein 6.0 L (6.4-8.2) g/dl Albumin 2.4 L (3.4-5.0) g/dl Globulin 3.6 gm/dL Albumin/Globulin Ratio 0.7 L (1-2) // Range/Units 06:27 WBC (4.23-9.07) K/mm3 RBC (4.63-6.08) M/mm3 Hgb (13.7-17.5) gm/dl Hct (40.1-51.0) % MCV (79.0-92.2) fl MCH (25.7-32.2) pg MCHC (32.2-35.5) g/dl RDW Std Deviation (35.1-43.9) fL Plt Count (163-337) K/mm3 MPV (9.4-12.3) fl Neut % (Auto) (34.0-67.9) % Lymph % (Auto) (21.8-53.1) % [place] % (Auto) (5.3-12.2) % Eos % (Auto) (0.8-7.0) Baso % (Auto) (0.1-1.2) % Neut # (Auto) (1.78-5.38) K/mm3 Lymph # (Auto) (1.32-3.57) K/mm3 [place] # (Auto) (0.30-0.82) K/mm3 Eos # (Auto) (0.04-0.54) K/mm3 Baso # (Auto) (0.01-0.08) K/mm3 Sodium (136-145) mEq/L Potassium (3.5-5.1) mEq/L Chloride (98-107) mEq/L Carbon Dioxide (21-32) mEq/L Anion Gap (5-15) BUN (7-18) mg/dL Creatinine (0.7-1.3) mg/dL Est Cr Clr Drug Dosing mL/min Estimated GFR (MDRD) (>60) mL/min BUN/Creatinine Ratio (14-18) Glucose (70-99) mg/dL POC Glucose 97 (70-99) mg/dL Calcium (8.5-10.1) mg/dL Magnesium (1.8-2.4) mg/dL Total Bilirubin (0.2-1.0) mg/dL AST (15-37) U/L ALT (16-63) U/L Alkaline Phosphatase (46-116) U/L Total Protein (6.4-8.2) g/dl Albumin (3.4-5.0) g/dl Globulin gm/dL Albumin/Globulin Ratio (1-2) Result Diagrams: 02/03/21 05:45 02/03/21 05:45 Nelson Results Last 24 hrs: Microbiology 01/31/21 07:55 Aerobic Blood Culture - Preliminary Blood - Venous NO GROWTH AFTER 3 DAYS Anaerobic Blood Culture - Preliminary NO GROWTH AFTER 3 DAYS 01/30/21 14:00 Aerobic Blood Culture - Preliminary Blood - Venous - Lab Draw NO GROWTH AFTER 3 DAYS Anaerobic Blood Culture - Preliminary NO GROWTH AFTER 3 DAYS 01/30/21 13:57 Aerobic Blood Culture - Preliminary Blood - Venous NO GROWTH AFTER 3 DAYS Anaerobic Blood Culture - Preliminary NO GROWTH AFTER 3 DAYS 01/31/21 08:25 Aerobic Blood Culture - Preliminary Blood - Venous - Lab Draw NO GROWTH AFTER 2 DAYS Anaerobic Blood Culture - Preliminary NO GROWTH AFTER 2 DAYS Sepsis Event Note - Evaluation Sepsis Screening Result: Sepsis Risk - Focused Exam Vital Signs: Vital Signs Temp Pulse Pulse Resp BP BP Pulse Ox 02/03/21 08:03 132/98 H 02/03/21 08:02 111 H 132/98 H 02/03/21 06:00 102 H 125/88 02/03/21 05:00 105 H 114/79 02/03/21 04:00 97.9 F 119 H 23 H 124/79 91 L 02/03/21 03:00 111 H 124/88 02/03/21 02:00 97 124/77 02/03/21 01:00 97 110/74 02/03/21 00:00 98.1 F 96 24 H 117/87 95 02/02/21 23:00 84 120/90 02/02/21 22:01 116/80 90 L 02/02/21 22:00 96 92 L 02/02/21 21:52 116/85 94 L 02/02/21 21:51 93 L 02/02/21 21:02 95 02/02/21 21:00 110 H 113/79 95 02/02/21 20:59 93 L 02/02/21 20:40 119 H 124/66 02/02/21 20:30 124/66 94 L 02/02/21 20:27 95 - Problem List Review Problem List Initiated/Reviewed/Updated: Yes - My Orders Last 24 Hours: My Active Orders 02/03/21 09:00 Metoprolol Tartrate [Lopressor] 75 mg PO Q12HR - Assessment Assessment:: 1. Acute alcohol withdrawal. 2. Aspiration pneumonia. 3. Atrial fibrillation with rapid ventricular rate. 4. Type 2 diabetes mellitus. - Plan Plan:: 1. Acute hypoxic respiratory failure in the setting of aspiration pneumonia. Continue supplemental oxygen. Respiratory therapy consult As needed bronchodilators. Continue antibiotics for full course. Incentive spirometry encouraged. Ambulation saturation trials when the patient is more stable from an alcohol withdrawal standpoint to stand. 2. Acute alcohol withdrawal. Slightly hypertensive and likely increasing his heart rate. Continue CIWA protocol. Patient is not a distraction to his own care and is not aggressive. Day 4 out from last drink. 3. Atrial fibrillation with rapid ventricular response. Will increase oral metoprolol to 75 mg twice daily. Continue Cardizem IR 120 mg 3 times daily with hopeful conversion to Cardizem CD 360 mg. Hopefully wean off diltiazem infusion. 4. Type 2 diabetes mellitus. Continue hospital hyperglycemia protocol with sliding scale insulin. 5. History of congestive heart failure; otherwise unspecified. Monitor volume status. Daily weights by standing scale. Titrate diuretics as necessary. CODE STATUS: Full code. DVT prophylaxis: Systemic anticoagulation.
[2021-02-03] MEDS ORDERED: Potassium Chloride 20 MEQ Tab.ER PO ONE (08:37)
[2021-02-03] MEDS: HYDROmorphone 0.5 MG/0.5 ML Syringe IVPUSH PRN ×2 (08:54→16:52)
--- NOTE | 2021-02-03 20:01 | CR ---
Chest: PA and lateral views of the chest were obtained. Comparison: Prior chest x-ray of the 02/02/21. Patchy areas of increased density are seen within the right upper and right lower lung. Left lower lung density is noted which is equivocally improved. Hiatal hernia is noted. Heart size is within normal limits. Upper mediastinum appears normal. Bony structures appear within normal limits for the patient's age. Impression: 1. Slight worsening of density within the right lung. 2. Equivocal improvement within the left lower lung density. 3. Hiatal hernia, other findings believed to be within normal limits for the patient's age. Diagnostic code #3 I agree with preliminary report from [facility], finalized on 02/03/21, 6:20 PM CDT, code 1
[2021-02-03] MEDS: atorvaSTATin 40 MG Tab PO SCH (21:25)
[2021-02-03] MEDS: Gabapentin 600 MG Tab PO SCH (21:25)
[2021-02-03] MEDS ORDERED: Furosemide 40 MG/4 ML VIAL IVPUSH ONE (22:45)
[2021-02-04] MEDS: Diltiazem IR 60 MG Tab PO SCH ×3 (03:40→20:25)
[2021-02-04] MEDS: Amoxicillin/Clavulanate K 500-125 MG Tab PO SCH (06:20)
[2021-02-04] MEDS: Pantoprazole 40 MG Tab.CR PO SCH (06:20)
[2021-02-04] MEDS: Insulin Lispro 100 UNIT/ML 10 ML Vial SUBCUT SCH ×3 (06:42→17:21)
--- NOTE | 2021-02-04 08:48 | PCM.PN ---
- General Info Date of Service: 02/04/21 Admission Dx/Problem (Free Text): 1. Afib w/RVR; hx of Afib 2. Hx of Alcoholism and now with alcohol withdrawal syndrome 3. SIRS syndrome; tachycardia/leukocytosis 4. Hx of Type II DM Subjective Update: No acute events overnight. Nursing concerns in the early evening yesterday were for increased work of breathing and increase of required supplemental oxygen to maintain above 90%. Now requiring 8 L. Heart rates more controlled at rest however spikes to the 120s and 130s with activity. This was after metoprolol was increased to 75 mg twice daily. Cardizem infusion was discontinued. Patient continues to complain of generalized feelings of being unwell but does not endorse any specific complaints. Is wondering how he got into the hospital. Right lower lobe density continues to worsen according to chest x-ray performed last evening. 40 mg of IV Lasix given last night as well. Patient with known chronic systolic congestive heart failure with an ejection fraction of approximately 45%. - Patient Data Vitals - Most Recent: Last Vital Signs Temp 97.8 F 02/04/21 03:39 Pulse 113 H 02/04/21 03:39 Resp 18 02/03/21 22:35 BP 129/78 02/04/21 03:39 Pulse Ox 94 L 02/04/21 06:20 Weight - Most Recent: 255 lb 4.8 oz I&O - Last 24 Hours: Intake & Output 02/03/21 02/04/21 02/04/21 22:59 06:59 14:59 Intake Total 1425 600 Output Total 650 1105 Balance 775 -505 Lab Results Last 24 Hours: Laboratory Results - last 24 hr 02/03/21 02/03/21 02/03/21 Range/Units 11:29 17:31 21:47 WBC (4.23-9.07) K/mm3 RBC (4.63-6.08) M/mm3 Hgb (13.7-17.5) gm/dl Hct (40.1-51.0) % MCV (79.0-92.2) fl MCH (25.7-32.2) pg MCHC (32.2-35.5) g/dl RDW Std Deviation (35.1-43.9) fL Plt Count (163-337) K/mm3 MPV (9.4-12.3) fl Neut % (Auto) (34.0-67.9) % Lymph % (Auto) (21.8-53.1) % [place] % (Auto) (5.3-12.2) % Eos % (Auto) (0.8-7.0) Baso % (Auto) (0.1-1.2) % Neut # (Auto) (1.78-5.38) K/mm3 Lymph # (Auto) (1.32-3.57) K/mm3 [place] # (Auto) (0.30-0.82) K/mm3 Eos # (Auto) (0.04-0.54) K/mm3 Baso # (Auto) (0.01-0.08) K/mm3 Manual Slide Review Sodium (136-145) mEq/L Potassium (3.5-5.1) mEq/L Chloride (98-107) mEq/L Carbon Dioxide (21-32) mEq/L Anion Gap (5-15) BUN (7-18) mg/dL Creatinine (0.7-1.3) mg/dL Est Cr Clr Drug Dosing mL/min Estimated GFR (MDRD) (>60) mL/min BUN/Creatinine Ratio (14-18) Glucose (70-99) mg/dL POC Glucose 106 H 115 H 101 H (70-99) mg/dL Calcium (8.5-10.1) mg/dL Magnesium (1.8-2.4) mg/dL Total Bilirubin (0.2-1.0) mg/dL AST (15-37) U/L ALT (16-63) U/L Alkaline Phosphatase (46-116) U/L Total Protein (6.4-8.2) g/dl Albumin (3.4-5.0) g/dl Globulin gm/dL Albumin/Globulin Ratio (1-2) 02/04/21 02/04/21 02/04/21 Range/Units 04:36 04:36 06:10 WBC 7.96 (4.23-9.07) K/mm3 RBC 3.35 L (4.63-6.08) M/mm3 Hgb 9.9 L (13.7-17.5) gm/dl Hct 30.3 L (40.1-51.0) % MCV 90.4 (79.0-92.2) fl MCH 29.6 (25.7-32.2) pg MCHC 32.7 (32.2-35.5) g/dl RDW Std Deviation 51.9 H (35.1-43.9) fL Plt Count 182 (163-337) K/mm3 MPV 9.1 L (9.4-12.3) fl Neut % (Auto) 66.3 (34.0-67.9) % Lymph % (Auto) 14.6 L (21.8-53.1) % [place] % (Auto) 15.2 H (5.3-12.2) % Eos % (Auto) 3.1 (0.8-7.0) Baso % (Auto) 0.4 (0.1-1.2) % Neut # (Auto) 5.28 (1.78-5.38) K/mm3 Lymph # (Auto) 1.16 L (1.32-3.57) K/mm3 [place] # (Auto) 1.21 H (0.30-0.82) K/mm3 Eos # (Auto) 0.25 (0.04-0.54) K/mm3 Baso # (Auto) 0.03 (0.01-0.08) K/mm3 Manual Slide Review Abnormal smear Sodium 137 (136-145) mEq/L Potassium 3.5 (3.5-5.1) mEq/L Chloride 102 (98-107) mEq/L Carbon Dioxide 27 (21-32) mEq/L Anion Gap 11.5 (5-15) BUN 11 (7-18) mg/dL Creatinine 0.9 (0.7-1.3) mg/dL Est Cr Clr Drug Dosing 83.39 mL/min Estimated GFR (MDRD) > 60 (>60) mL/min BUN/Creatinine Ratio 12.2 L (14-18) Glucose 96 (70-99) mg/dL POC Glucose 95 (70-99) mg/dL Calcium 8.3 L (8.5-10.1) mg/dL Magnesium 1.6 L (1.8-2.4) mg/dL Total Bilirubin 1.1 H (0.2-1.0) mg/dL AST 30 (15-37) U/L ALT 35 (16-63) U/L Alkaline Phosphatase 50 (46-116) U/L Total Protein 5.8 L (6.4-8.2) g/dl Albumin 2.2 L (3.4-5.0) g/dl Globulin 3.6 gm/dL Albumin/Globulin Ratio 0.6 L (1-2) Nelson Results Last 24 Hours: Microbiology 01/31/21 08:25 Aerobic Blood Culture - Preliminary Blood - Venous - Lab Draw NO GROWTH AFTER 4 DAYS Anaerobic Blood Culture - Preliminary NO GROWTH AFTER 4 DAYS 01/31/21 07:55 Aerobic Blood Culture - Preliminary Blood - Venous NO GROWTH AFTER 4 DAYS Anaerobic Blood Culture - Preliminary NO GROWTH AFTER 4 DAYS 01/30/21 14:00 Aerobic Blood Culture - Preliminary Blood - Venous - Lab Draw NO GROWTH AFTER 4 DAYS Anaerobic Blood Culture - Preliminary NO GROWTH AFTER 4 DAYS 01/30/21 13:57 Aerobic Blood Culture - Preliminary Blood - Venous NO GROWTH AFTER 4 DAYS Anaerobic Blood Culture - Preliminary NO GROWTH AFTER 4 DAYS Med Orders - Current: Current Medications Acetaminophen (Acetaminophen 325 Mg Tab) 650 mg PO Q4H PRN PRN Reason: Pain (Mild 1-3)/fever Last Admin: 02/02/21 17:27 Dose: 650 mg Documented by: Atorvastatin Calcium (Atorvastatin 40 Mg Tab) 40 mg PO BEDTIME [facility] Last Admin: 02/03/21 21:25 Dose: 40 mg Documented by: Chlordiazepoxide HCl (Chlordiazepoxide 25 Mg Cap) 50 mg PO BID [facility] Last Admin: 02/03/21 21:20 Dose: 50 mg Documented by: Cholecalciferol (Cholecalciferol (Vitamin D3) 5,000 Unit Cap) 5,000 unit PO DAILY [facility] Last Admin: 02/03/21 08:04 Dose: 5,000 unit Documented by: Diltiazem HCl (Diltiazem Ir 60 Mg Tab) 120 mg PO Q8H [facility] Last Admin: 02/04/21 03:40 Dose: 120 mg Documented by: Furosemide (Furosemide 40 Mg/4 Ml Vial) 40 mg IVPUSH DAILY [facility] Gabapentin (Gabapentin 600 Mg Tab) 600 mg PO BEDTIME [facility] Last Admin: 02/03/21 21:25 Dose: 600 mg Documented by: Hydromorphone HCl (Hydromorphone 0.5 Mg/0.5 Ml Syringe) 0.5 mg IVPUSH Q1H PRN PRN Reason: Pain (moderate 4-6) Last Admin: 02/03/21 16:52 Dose: 0.5 mg Documented by: Magnesium Sulfate 2 gm/ Premix 50 mls @ 25 mls/hr IV ONETIME ONE Stop: 02/04/21 11:29 Potassium Chloride 10 meq/ (Premix) 100 mls @ 100 mls/hr IV Q1H [facility] Stop: 02/04/21 15:59 Ampicillin Sodium/Sulbactam (Sodium 3 gm/ Sodium Chloride) 100 mls @ 200 mls/hr IV Q6H [facility] Insulin Human Lispro (Insulin Lispro 100 Unit/Ml 10 Ml Vial) 0 unit SUBCUT QIDACANDBED [facility]; Protocol Last Admin: 02/04/21 06:42 Dose: Not Given Documented by: Lorazepam (Lorazepam 2 Mg/Ml Sdv) 0 mg IV ASDIRECTED [facility]; Protocol Last Admin: 02/03/21 17:52 Dose: 1 mg Documented by: Lorazepam (Lorazepam 1 Mg Tab) 1 mg PO Q1H PRN PRN Reason: Withdrawal Symptoms Last Admin: 02/01/21 11:30 Dose: 1 mg Documented by: Losartan Potassium (Losartan 25 Mg Tab) 25 mg PO DAILY [facility] Last Admin: 02/03/21 08:03 Dose: 25 mg Documented by: Magnesium Oxide (Magnesium Oxide 400 Mg Tab) 400 mg PO BID [facility] Last Admin: 02/03/21 21:25 Dose: 400 mg Documented by: Metoprolol Tartrate (Metoprolol Tartrate 50 Mg Tab) 100 mg PO Q12HR [facility] Ondansetron HCl (Ondansetron 4 Mg/2 Ml Sdv) 4 mg IV Q4H PRN PRN Reason: Nausea/Vomiting Oxycodone HCl (Oxycodone 5 Mg Tab) 5 mg PO Q4H PRN PRN Reason: Pain (moderate 4-6) Last Admin: 02/03/21 07:28 Dose: 5 mg Documented by: Pantoprazole Sodium (Pantoprazole 40 Mg Tab.Cr) 40 mg PO ACBREAKFAST [facility] Last Admin: 02/04/21 06:20 Dose: 40 mg Documented by: Rivaroxaban (Rivaroxaban 10 Mg Tab) 20 mg PO DAILY [facility] Last Admin: 02/03/21 08:04 Dose: 20 mg Documented by: Sodium Chloride (Sodium Chloride 0.9% 10 Ml Syringe) 10 ml FLUSH ASDIRECTED PRN PRN Reason: Keep Vein Open Last Admin: 01/30/21 10:32 Dose: 10 ml Documented by: Thiamine HCl (Thiamine 100 Mg Tab) 100 mg PO DAILY [facility] Last Admin: 02/03/21 08:01 Dose: 100 mg Documented by: Trazodone HCl (Trazodone 50 Mg Tab) 50 mg PO BEDTIME PRN PRN Reason: Sleep Discontinued Medications Amoxicillin/Clavulanate Potassium (Amoxicillin/Clavulanate K 500-125 Mg Tab) 1 tab PO Q8H [facility] Last Admin: 02/04/21 06:20 Dose: 1 tab Documented by: Chlordiazepoxide HCl (Chlordiazepoxide 25 Mg Cap) 25 mg PO BID [facility] Last Admin: 02/02/21 20:41 Dose: Not Given Documented by: Cholecalciferol (Cholecalciferol (Vitamin D3) 5,000 Unit Tab) 5,000 unit PO DAILY [facility] Last Admin: 01/30/21 14:14 Dose: Not Given Documented by: Diltiazem HCl (Diltiazem 50 Mg/10 Ml Sdv) 10 mg IVPUSH ONETIME ONE Stop: 01/30/21 10:01 Last Admin: 01/30/21 10:07 Dose: 10 mg Documented by: Diltiazem HCl (Diltiazem Ir 60 Mg Tab) 120 mg PO TID [facility] Last Admin: 02/01/21 11:40 Dose: 120 mg Documented by: Diltiazem HCl (Diltiazem 50 Mg/10 Ml Sdv) 10 mg IVPUSH ONETIME ONE Stop: 02/02/21 06:00 Last Admin: 02/02/21 06:12 Dose: 10 mg Documented by: Folic Acid (Folic Acid 1 Mg Tab) 1 mg PO DAILY [facility] Stop: 02/01/21 09:01 Last Admin: 02/01/21 08:21 Dose: 1 mg Documented by: Furosemide (Furosemide 20 Mg/2 Ml Vial) 20 mg IVPUSH NOW ONE Stop: 02/01/21 20:21 Last Admin: 02/01/21 20:35 Dose: 20 mg Documented by: Furosemide (Furosemide 20 Mg/2 Ml Vial) 20 mg IVPUSH NOW ONE Stop: 02/02/21 11:31 Last Admin: 02/02/21 11:33 Dose: 20 mg Documented by: Furosemide (Furosemide 20 Mg Tab) 20 mg PO DAILY [facility] Last Admin: 02/03/21 08:01 Dose: 20 mg Documented by: Furosemide (Furosemide 40 Mg/4 Ml Vial) 40 mg IVPUSH NOW ONE Stop: 02/03/21 22:46 Last Admin: 02/03/21 22:52 Dose: 40 mg Documented by: Haloperidol (Haloperidol 1 Mg Tab) 2 mg PO ONETIME ONE Stop: 02/01/21 09:04 Last Admin: 02/01/21 17:12 Dose: Not Given Documented by: Haloperidol (Haloperidol 1 Mg Tab) 2 mg PO ONETIME ONE Stop: 02/01/21 19:09 Last Admin: 02/02/21 05:02 Dose: Not Given Documented by: Hydromorphone HCl (Hydromorphone 1 Mg/Ml Syringe) 1 mg IVPUSH ONETIME ONE Stop: 01/30/21 10:01 Last Admin: 01/30/21 10:07 Dose: 1 mg Documented by: Hydromorphone HCl (Hydromorphone 0.5 Mg/0.5 Ml Syringe) 0.5 mg IVPUSH ONETIME ONE Stop: 01/30/21 12:01 Last Admin: 01/30/21 12:07 Dose: 0.5 mg Documented by: Diltiazem HCl 100 mg/ Sodium (Chloride) 100 mls @ 10 mls/hr IV TITRATE [facility]; Protocol Last Titration: 02/03/21 11:20 Dose: 0 mg/hr, 0 mls/hr Documented by: Sodium Chloride (Normal Saline) 1,000 mls @ 125 mls/hr IV ASDIRECTED [facility] Last Infusion: 01/30/21 12:08 Dose: 125 mls/hr Documented by: Sodium Chloride (Normal Saline) 1,000 mls @ 999 mls/hr IV ONETIME ONE Stop: 01/30/21 12:00 Last Admin: 01/30/21 11:00 Dose: 999 mls/hr Documented by: Magnesium Sulfate 2 gm/ Premix 50 mls @ 25 mls/hr IV ONETIME ONE Stop: 01/30/21 15:28 Last Admin: 01/30/21 14:02 Dose: 25 mls/hr Documented by: Lactated Ringer's (Ringers, Lactated) 1,000 mls @ 100 mls/hr IV ASDIRECTED [facility] Last Infusion: 01/31/21 17:35 Dose: 75 mls/hr Documented by: Lactated Ringer's (Ringers, Lactated) 1,000 mls @ 1,000 mls/hr IV .BOLUS ONE Stop: 01/31/21 09:44 Last Admin: 01/31/21 08:54 Dose: 1,000 mls/hr Documented by: Lactated Ringer's (Ringers, Lactated) 1,000 mls @ 1,000 mls/hr IV .BOLUS ONE Stop: 01/31/21 10:44 Last Admin: 01/31/21 10:10 Dose: 1,000 mls/hr Documented by: Piperacillin Sod/Tazobactam (Sod 4.5 gm/ Sodium Chloride) 100 mls @ 25 mls/hr IV Q8H [facility] Last Admin: 02/02/21 03:32 Dose: 25 mls/hr Documented by: Piperacillin Sod/Tazobactam (Sod 4.5 gm/ Sodium Chloride) 100 mls @ 200 mls/hr IV ONETIME ONE Stop: 01/31/21 12:29 Last Admin: 01/31/21 11:58 Dose: 200 mls/hr Documented by: Vancomycin HCl 2 gm/ Sodium (Chloride) 500 mls @ 250 mls/hr IV ONETIME ONE Stop: 01/31/21 13:59 Last Admin: 01/31/21 12:38 Dose: 250 mls/hr Documented by: Vancomycin HCl 1.75 gm/ Sodium (Chloride) 500 mls @ 250 mls/hr IV Q12H [facility] Stop: 02/02/21 14:00 Last Admin: 02/02/21 11:33 Dose: 250 mls/hr Documented by: Lactated Ringer's (Ringers, Lactated) 1,000 mls @ 75 mls/hr IV ASDIRECTED [facility] Last Infusion: 02/01/21 09:13 Dose: 20 mls/hr Documented by: Lactated Ringer's (Ringers, Lactated) 1,000 mls @ 20 mls/hr IV ASDIRECTED [facility] Last Admin: 02/01/21 14:00 Dose: 20 mls/hr Documented by: Magnesium Sulfate/Dextrose 1 (gm/ Premix) 100 mls @ 100 mls/hr IV ONETIME ONE Stop: 02/01/21 10:29 Last Admin: 02/01/21 09:18 Dose: 100 mls/hr Documented by: Magnesium Sulfate 2 gm/ Premix 50 mls @ 25 mls/hr IV ONETIME ONE Stop: 02/02/21 10:29 Last Admin: 02/02/21 08:17 Dose: 25 mls/hr Documented by: Metoprolol Succinate (Metoprolol Succinate 50 Mg Tab.Er) 50 mg PO DAILY [facility] Last Admin: 01/31/21 07:24 Dose: 50 mg Documented by: Metoprolol Tartrate (Metoprolol Tartrate 50 Mg Tab) 50 mg PO Q12HR [facility] Last Admin: 02/02/21 20:40 Dose: 50 mg Documented by: Metoprolol Tartrate (Metoprolol Tartrate 50 Mg Tab) 75 mg PO Q12HR [facility] Last Admin: 02/03/21 21:21 Dose: 75 mg Documented by: Multivitamins/Minerals/Vitamin C (Multivitamin Tab) 1 tab PO ONETIME ONE Stop: 01/30/21 13:38 Last Admin: 01/30/21 14:02 Dose: 1 tab Documented by: Potassium Chloride (Potassium Chloride 20 Meq Tab.Er) 40 meq PO ONETIME ONE Stop: 02/03/21 08:38 Last Admin: 02/03/21 08:53 Dose: 40 meq Documented by: Vancomycin HCl (Pharmacy To Dose - Vancomycin) 1 dose .XX ASDIRECTED PRN PRN Reason: RX TO DOSE VANCO - Exam General: Alert, Cooperative Neck: Supple Lungs: Decreased Breath Sounds Cardiovascular: Irregular Rhythm, Tachycardia GI/Abdominal Exam: Normal Bowel Sounds, Soft, Non-Tender Extremities: Normal Range of Motion, Pedal Edema (Nonpitting laterally) Skin: Warm, Dry Neurological: No New Focal Deficit - Patient Data Lab Results Last 24 hrs: Laboratory Results - last 24 hr 02/03/21 02/03/21 02/03/21 Range/Units 11:29 17:31 21:47 WBC (4.23-9.07) K/mm3 RBC (4.63-6.08) M/mm3 Hgb (13.7-17.5) gm/dl Hct (40.1-51.0) % MCV (79.0-92.2) fl MCH (25.7-32.2) pg MCHC (32.2-35.5) g/dl RDW Std Deviation (35.1-43.9) fL Plt Count (163-337) K/mm3 MPV (9.4-12.3) fl Neut % (Auto) (34.0-67.9) % Lymph % (Auto) (21.8-53.1) % [place] % (Auto) (5.3-12.2) % Eos % (Auto) (0.8-7.0) Baso % (Auto) (0.1-1.2) % Neut # (Auto) (1.78-5.38) K/mm3 Lymph # (Auto) (1.32-3.57) K/mm3 [place] # (Auto) (0.30-0.82) K/mm3 Eos # (Auto) (0.04-0.54) K/mm3 Baso # (Auto) (0.01-0.08) K/mm3 Manual Slide Review Sodium (136-145) mEq/L Potassium (3.5-5.1) mEq/L Chloride (98-107) mEq/L Carbon Dioxide (21-32) mEq/L Anion Gap (5-15) BUN (7-18) mg/dL Creatinine (0.7-1.3) mg/dL Est Cr Clr Drug Dosing mL/min Estimated GFR (MDRD) (>60) mL/min BUN/Creatinine Ratio (14-18) Glucose (70-99) mg/dL POC Glucose 106 H 115 H 101 H (70-99) mg/dL Calcium (8.5-10.1) mg/dL Magnesium (1.8-2.4) mg/dL Total Bilirubin (0.2-1.0) mg/dL AST (15-37) U/L ALT (16-63) U/L Alkaline Phosphatase (46-116) U/L Total Protein (6.4-8.2) g/dl Albumin (3.4-5.0) g/dl Globulin gm/dL Albumin/Globulin Ratio (1-2) 02/04/21 02/04/21 02/04/21 Range/Units 04:36 04:36 06:10 WBC 7.96 (4.23-9.07) K/mm3 RBC 3.35 L (4.63-6.08) M/mm3 Hgb 9.9 L (13.7-17.5) gm/dl Hct 30.3 L (40.1-51.0) % MCV 90.4 (79.0-92.2) fl MCH 29.6 (25.7-32.2) pg MCHC 32.7 (32.2-35.5) g/dl RDW Std Deviation 51.9 H (35.1-43.9) fL Plt Count 182 (163-337) K/mm3 MPV 9.1 L (9.4-12.3) fl Neut % (Auto) 66.3 (34.0-67.9) % Lymph % (Auto) 14.6 L (21.8-53.1) % [place] % (Auto) 15.2 H (5.3-12.2) % Eos % (Auto) 3.1 (0.8-7.0) Baso % (Auto) 0.4 (0.1-1.2) % Neut # (Auto) 5.28 (1.78-5.38) K/mm3 Lymph # (Auto) 1.16 L (1.32-3.57) K/mm3 [place] # (Auto) 1.21 H (0.30-0.82) K/mm3 Eos # (Auto) 0.25 (0.04-0.54) K/mm3 Baso # (Auto) 0.03 (0.01-0.08) K/mm3 Manual Slide Review Abnormal smear Sodium 137 (136-145) mEq/L Potassium 3.5 (3.5-5.1) mEq/L Chloride 102 (98-107) mEq/L Carbon Dioxide 27 (21-32) mEq/L Anion Gap 11.5 (5-15) BUN 11 (7-18) mg/dL Creatinine 0.9 (0.7-1.3) mg/dL Est Cr Clr Drug Dosing 83.39 mL/min Estimated GFR (MDRD) > 60 (>60) mL/min BUN/Creatinine Ratio 12.2 L (14-18) Glucose 96 (70-99) mg/dL POC Glucose 95 (70-99) mg/dL Calcium 8.3 L (8.5-10.1) mg/dL Magnesium 1.6 L (1.8-2.4) mg/dL Total Bilirubin 1.1 H (0.2-1.0) mg/dL AST 30 (15-37) U/L ALT 35 (16-63) U/L Alkaline Phosphatase 50 (46-116) U/L Total Protein 5.8 L (6.4-8.2) g/dl Albumin 2.2 L (3.4-5.0) g/dl Globulin 3.6 gm/dL Albumin/Globulin Ratio 0.6 L (1-2) Result Diagrams: 02/04/21 04:36 02/04/21 04:36 Nelson Results Last 24 hrs: Microbiology 01/31/21 08:25 Aerobic Blood Culture - Preliminary Blood - Venous - Lab Draw NO GROWTH AFTER 4 DAYS Anaerobic Blood Culture - Preliminary NO GROWTH AFTER 4 DAYS 01/31/21 07:55 Aerobic Blood Culture - Preliminary Blood - Venous NO GROWTH AFTER 4 DAYS Anaerobic Blood Culture - Preliminary NO GROWTH AFTER 4 DAYS 01/30/21 14:00 Aerobic Blood Culture - Preliminary Blood - Venous - Lab Draw NO GROWTH AFTER 4 DAYS Anaerobic Blood Culture - Preliminary NO GROWTH AFTER 4 DAYS 01/30/21 13:57 Aerobic Blood Culture - Preliminary Blood - Venous NO GROWTH AFTER 4 DAYS Anaerobic Blood Culture - Preliminary NO GROWTH AFTER 4 DAYS Sepsis Event Note - Evaluation Sepsis Screening Result: No Definite Risk - Focused Exam Vital Signs: Vital Signs Temp Pulse Pulse Resp BP BP Pulse Ox 02/04/21 06:20 02/04/21 03:39 97.8 F 113 H 129/78 97 02/04/21 00:47 02/03/21 23:02 02/03/21 22:35 208.6 F H 18 133/71 88 L 02/03/21 22:00 92 L 02/03/21 21:21 116 H 132/77 02/03/21 21:00 97.8 F 94 132/77 92 L Pulse Ox Pulse Ox 02/04/21 06:20 94 L 02/04/21 03:39 02/04/21 00:47 88 L 02/03/21 23:02 94 L 02/03/21 22:35 02/03/21 22:00 02/03/21 21:21 02/03/21 21:00 - Problem List Review Problem List Initiated/Reviewed/Updated: Yes - My Orders Last 24 Hours: My Active Orders 02/04/21 09:00 Ampicillin/Sulbactam Na [Unasyn] 3 gm Sodium Chloride 0.9% [Normal Saline] 100 ml IV Q6H Furosemide [Lasix] 40 mg IVPUSH DAILY Metoprolol Tartrate [Lopressor] 100 mg PO Q12HR 02/04/21 09:30 Magnesium Sulfate/Water [Magnesium Sulfate in Water 2 GM/50 ML] 2 gm Premix Bag 1 bag IV ONETIME 02/04/21 12:00 Potassium Chloride [KCl in Water 10 MEQ/100 ML] 10 meq Premix Bag 1 bag IV Q1H - Assessment Assessment:: 1. Acute alcohol withdrawal. 2. Aspiration pneumonia. 3. Atrial fibrillation with rapid ventricular rate. 4. Type 2 diabetes mellitus. - Plan Plan:: 1. Acute hypoxic respiratory failure in the setting of aspiration pneumonia. Continue supplemental oxygen. Respiratory therapy consult As needed bronchodilators. Continue antibiotics for full course, revert back to IV Unasyn. Will likely require 14-day course. Incentive spirometry encouraged. Ambulation saturation trials when the patient is more stable from an alcohol withdrawal standpoint to stand. 2. Acute alcohol withdrawal. Continue CIWA protocol, not requiring much Ativan. Seems to be on the mend. Patient is not a distraction to his own care and is not aggressive. Day 5 out from last drink. 3. Atrial fibrillation with rapid ventricular response. Will increase oral metoprolol to 100 mg twice daily. Continue Cardizem IR 120 mg 3 times daily with hopeful conversion to Cardizem CD 360 mg. Diltiazem infusion now discontinued. 4. Type 2 diabetes mellitus. Continue hospital hyperglycemia protocol with sliding scale insulin. 5. History of congestive heart failure; otherwise unspecified. Monitor volume status. Direction of 1 L to 1.5 L/day. Daily weights by standing scale. Titrate diuretics as necessary. Lasix 40 mg IV daily. CODE STATUS: Full code. DVT prophylaxis: Systemic anticoagulation.
[2021-02-04] MEDS ORDERED: Furosemide 40 MG/4 ML VIAL IVPUSH SCH (09:00)
[2021-02-04] MEDS ORDERED: Magnesium Sulfate/Water 2 GM in Premix Bag 1 BAG IV ONE (09:30)
[2021-02-04] MEDS: Ampicillin/Sulbactam Na 3 GM in Sodium Chloride 0.9% 100 ML IV SCH ×3 (09:34→20:24)
[2021-02-04] MEDS: Thiamine 100 MG Tab PO SCH (09:35)
[2021-02-04] MEDS: Cholecalciferol (Vitamin D3) 5,000 UNIT Cap PO SCH (09:36)
[2021-02-04] MEDS: Magnesium Oxide 400 MG Tab PO SCH ×2 (09:36→20:25)
[2021-02-04] MEDS: Rivaroxaban 10 MG Tab PO SCH (09:36)
[2021-02-04] MEDS: Metoprolol Tartrate 50 MG Tab PO SCH ×2 (09:40→20:25)
[2021-02-04] MEDS: Losartan 25 MG Tab PO SCH (09:41)
[2021-02-04] MEDS: chlordiazePOXIDE 25 MG Cap PO SCH (09:42)
[2021-02-04] MEDS: Potassium Chloride 10 MEQ in Premix Bag 1 BAG IV SCH ×4 (11:15→14:42)
[2021-02-04] MEDS: Gabapentin 600 MG Tab PO SCH (20:25)
[2021-02-04] MEDS: atorvaSTATin 40 MG Tab PO SCH (20:25)
[2021-02-05] MEDS: Ampicillin/Sulbactam Na 3 GM in Sodium Chloride 0.9% 100 ML IV SCH ×4 (02:26→21:42)
[2021-02-05] MEDS: Diltiazem IR 60 MG Tab PO SCH ×3 (02:32→18:29)
[2021-02-05] MEDS: Pantoprazole 40 MG Tab.CR PO SCH (05:05)
--- NOTE | 2021-02-05 08:33 | PCM.PN ---
- General Info Date of Service: 02/05/21 Admission Dx/Problem (Free Text): 1. Afib w/RVR; hx of Afib 2. Hx of Alcoholism and now with alcohol withdrawal syndrome 3. SIRS syndrome; tachycardia/leukocytosis 4. Hx of Type II DM Subjective Update: No acute events overnight. No new nursing concerns. Patient now more awake considering all sedation has been discontinued. No active signs of withdrawal. Patient states that his bones hurt. Denies any headache, change in vision, chest pain, chest pressure, pleurisy, nausea/vomiting, abdominal discomfort or difficulties with voiding. Able to be weaned down to 3 L via nasal cannula within the past 24 hours. - Patient Data Vitals - Most Recent: Last Vital Signs Temp 98.2 F 02/05/21 02:38 Pulse 96 02/05/21 02:38 Resp 14 02/05/21 02:38 BP 100/63 02/05/21 02:38 Pulse Ox 90 L 02/05/21 06:29 Weight - Most Recent: 256 lb 3.2 oz I&O - Last 24 Hours: Intake & Output 02/04/21 02/05/21 02/05/21 22:59 06:59 14:59 Intake Total 1150 600 Output Total 900 Balance 250 600 Lab Results Last 24 Hours: Laboratory Results - last 24 hr 02/04/21 02/05/21 02/05/21 Range/Units 12:35 05:11 05:11 WBC 7.94 (4.23-9.07) K/mm3 RBC 3.42 L (4.63-6.08) M/mm3 Hgb 10.0 L (13.7-17.5) gm/dl Hct 30.9 L (40.1-51.0) % MCV 90.4 (79.0-92.2) fl MCH 29.2 (25.7-32.2) pg MCHC 32.4 (32.2-35.5) g/dl RDW Std Deviation 52.8 H (35.1-43.9) fL Plt Count 198 (163-337) K/mm3 MPV 9.1 L (9.4-12.3) fl Neut % (Auto) 71.9 H (34.0-67.9) % Lymph % (Auto) 12.1 L (21.8-53.1) % [place] % (Auto) 10.5 (5.3-12.2) % Eos % (Auto) 4.7 (0.8-7.0) Baso % (Auto) 0.4 (0.1-1.2) % Neut # (Auto) 5.72 H (1.78-5.38) K/mm3 Lymph # (Auto) 0.96 L (1.32-3.57) K/mm3 [place] # (Auto) 0.83 H (0.30-0.82) K/mm3 Eos # (Auto) 0.37 (0.04-0.54) K/mm3 Baso # (Auto) 0.03 (0.01-0.08) K/mm3 Sodium 138 (136-145) mEq/L Potassium 3.6 (3.5-5.1) mEq/L Chloride 103 (98-107) mEq/L Carbon Dioxide 28 (21-32) mEq/L Anion Gap 10.6 (5-15) BUN 11 (7-18) mg/dL Creatinine 0.9 (0.7-1.3) mg/dL Est Cr Clr Drug Dosing 83.39 mL/min Estimated GFR (MDRD) > 60 (>60) mL/min BUN/Creatinine Ratio 12.2 L (14-18) Glucose 106 H (70-99) mg/dL POC Glucose 124 H (70-99) mg/dL Calcium 8.3 L (8.5-10.1) mg/dL Magnesium 2.6 H (1.8-2.4) mg/dL Total Bilirubin 0.8 (0.2-1.0) mg/dL AST 39 H (15-37) U/L ALT 47 (16-63) U/L Alkaline Phosphatase 52 (46-116) U/L Total Protein 5.7 L (6.4-8.2) g/dl Albumin 2.1 L (3.4-5.0) g/dl Globulin 3.6 gm/dL Albumin/Globulin Ratio 0.6 L (1-2) Nelson Results Last 24 Hours: Microbiology 01/31/21 08:25 Aerobic Blood Culture - Preliminary Blood - Venous - Lab Draw NO GROWTH AFTER 5 DAYS Anaerobic Blood Culture - Preliminary NO GROWTH AFTER 5 DAYS 01/31/21 07:55 Aerobic Blood Culture - Preliminary Blood - Venous NO GROWTH AFTER 5 DAYS Anaerobic Blood Culture - Preliminary NO GROWTH AFTER 5 DAYS 01/30/21 14:00 Aerobic Blood Culture - Preliminary Blood - Venous - Lab Draw NO GROWTH AFTER 5 DAYS Anaerobic Blood Culture - Preliminary NO GROWTH AFTER 5 DAYS 01/30/21 13:57 Aerobic Blood Culture - Preliminary Blood - Venous NO GROWTH AFTER 5 DAYS Anaerobic Blood Culture - Preliminary NO GROWTH AFTER 5 DAYS Med Orders - Current: Current Medications Acetaminophen (Acetaminophen 325 Mg Tab) 650 mg PO Q4H PRN PRN Reason: Pain (Mild 1-3)/fever Last Admin: 02/02/21 17:27 Dose: 650 mg Documented by: Atorvastatin Calcium (Atorvastatin 40 Mg Tab) 40 mg PO BEDTIME [facility] Last Admin: 02/04/21 20:25 Dose: 40 mg Documented by: Cholecalciferol (Cholecalciferol (Vitamin D3) 5,000 Unit Cap) 5,000 unit PO DAILY [facility] Last Admin: 02/04/21 09:36 Dose: 5,000 unit Documented by: Diltiazem HCl (Diltiazem Ir 60 Mg Tab) 120 mg PO Q8H [facility] Last Admin: 02/05/21 02:32 Dose: 120 mg Documented by: Furosemide (Furosemide 40 Mg/4 Ml Vial) 40 mg IVPUSH DAILY [facility] Last Admin: 02/04/21 09:34 Dose: 40 mg Documented by: Gabapentin (Gabapentin 600 Mg Tab) 600 mg PO BEDTIME [facility] Last Admin: 02/04/21 20:25 Dose: 600 mg Documented by: Hydromorphone HCl (Hydromorphone 0.5 Mg/0.5 Ml Syringe) 0.5 mg IVPUSH Q1H PRN PRN Reason: Pain (moderate 4-6) Last Admin: 02/03/21 16:52 Dose: 0.5 mg Documented by: Ampicillin Sodium/Sulbactam (Sodium 3 gm/ Sodium Chloride) 100 mls @ 200 mls/hr IV Q6H [facility] Last Admin: 02/05/21 02:26 Dose: 200 mls/hr Documented by: Losartan Potassium (Losartan 25 Mg Tab) 25 mg PO DAILY [facility] Last Admin: 02/04/21 09:41 Dose: 25 mg Documented by: Magnesium Oxide (Magnesium Oxide 400 Mg Tab) 400 mg PO BID [facility] Last Admin: 02/04/21 20:25 Dose: 400 mg Documented by: Metoprolol Tartrate (Metoprolol Tartrate 50 Mg Tab) 100 mg PO Q12HR [facility] Last Admin: 02/04/21 20:25 Dose: 100 mg Documented by: Ondansetron HCl (Ondansetron 4 Mg/2 Ml Sdv) 4 mg IV Q4H PRN PRN Reason: Nausea/Vomiting Oxycodone HCl (Oxycodone 5 Mg Tab) 5 mg PO Q4H PRN PRN Reason: Pain (moderate 4-6) Last Admin: 02/03/21 07:28 Dose: 5 mg Documented by: Pantoprazole Sodium (Pantoprazole 40 Mg Tab.Cr) 40 mg PO ACBREAKFAST [facility] Last Admin: 02/05/21 05:05 Dose: 40 mg Documented by: Rivaroxaban (Rivaroxaban 10 Mg Tab) 20 mg PO DAILY [facility] Last Admin: 02/04/21 09:36 Dose: 20 mg Documented by: Sodium Chloride (Sodium Chloride 0.9% 10 Ml Syringe) 10 ml FLUSH ASDIRECTED PRN PRN Reason: Keep Vein Open Last Admin: 01/30/21 10:32 Dose: 10 ml Documented by: Trazodone HCl (Trazodone 50 Mg Tab) 50 mg PO BEDTIME PRN PRN Reason: Sleep Discontinued Medications Amoxicillin/Clavulanate Potassium (Amoxicillin/Clavulanate K 500-125 Mg Tab) 1 tab PO Q8H [facility] Last Admin: 02/04/21 06:20 Dose: 1 tab Documented by: Chlordiazepoxide HCl (Chlordiazepoxide 25 Mg Cap) 50 mg PO BID [facility] Last Admin: 02/04/21 09:42 Dose: Not Given Documented by: Chlordiazepoxide HCl (Chlordiazepoxide 25 Mg Cap) 25 mg PO BID [facility] Last Admin: 02/02/21 20:41 Dose: Not Given Documented by: Cholecalciferol (Cholecalciferol (Vitamin D3) 5,000 Unit Tab) 5,000 unit PO DAILY [facility] Last Admin: 01/30/21 14:14 Dose: Not Given Documented by: Diltiazem HCl (Diltiazem 50 Mg/10 Ml Sdv) 10 mg IVPUSH ONETIME ONE Stop: 01/30/21 10:01 Last Admin: 01/30/21 10:07 Dose: 10 mg Documented by: Diltiazem HCl (Diltiazem Ir 60 Mg Tab) 120 mg PO TID [facility] Last Admin: 02/01/21 11:40 Dose: 120 mg Documented by: Diltiazem HCl (Diltiazem 50 Mg/10 Ml Sdv) 10 mg IVPUSH ONETIME ONE Stop: 02/02/21 06:00 Last Admin: 02/02/21 06:12 Dose: 10 mg Documented by: Folic Acid (Folic Acid 1 Mg Tab) 1 mg PO DAILY [facility] Stop: 02/01/21 09:01 Last Admin: 02/01/21 08:21 Dose: 1 mg Documented by: Furosemide (Furosemide 20 Mg/2 Ml Vial) 20 mg IVPUSH NOW ONE Stop: 02/01/21 20:21 Last Admin: 02/01/21 20:35 Dose: 20 mg Documented by: Furosemide (Furosemide 20 Mg/2 Ml Vial) 20 mg IVPUSH NOW ONE Stop: 02/02/21 11:31 Last Admin: 02/02/21 11:33 Dose: 20 mg Documented by: Furosemide (Furosemide 20 Mg Tab) 20 mg PO DAILY [facility] Last Admin: 02/03/21 08:01 Dose: 20 mg Documented by: Furosemide (Furosemide 40 Mg/4 Ml Vial) 40 mg IVPUSH NOW ONE Stop: 02/03/21 22:46 Last Admin: 02/03/21 22:52 Dose: 40 mg Documented by: Haloperidol (Haloperidol 1 Mg Tab) 2 mg PO ONETIME ONE Stop: 02/01/21 09:04 Last Admin: 02/01/21 17:12 Dose: Not Given Documented by: Haloperidol (Haloperidol 1 Mg Tab) 2 mg PO ONETIME ONE Stop: 02/01/21 19:09 Last Admin: 02/02/21 05:02 Dose: Not Given Documented by: Hydromorphone HCl (Hydromorphone 1 Mg/Ml Syringe) 1 mg IVPUSH ONETIME ONE Stop: 01/30/21 10:01 Last Admin: 01/30/21 10:07 Dose: 1 mg Documented by: Hydromorphone HCl (Hydromorphone 0.5 Mg/0.5 Ml Syringe) 0.5 mg IVPUSH ONETIME ONE Stop: 01/30/21 12:01 Last Admin: 01/30/21 12:07 Dose: 0.5 mg Documented by: Diltiazem HCl 100 mg/ Sodium (Chloride) 100 mls @ 10 mls/hr IV TITRATE DIAMANTE; Protocol Last Titration: 02/03/21 11:20 Dose: 0 mg/hr, 0 mls/hr Documented by: Sodium Chloride (Normal Saline) 1,000 mls @ 125 mls/hr IV ASDIRECTED DIAMANTE Last Infusion: 01/30/21 12:08 Dose: 125 mls/hr Documented by: Sodium Chloride (Normal Saline) 1,000 mls @ 999 mls/hr IV ONETIME ONE Stop: 01/30/21 12:00 Last Admin: 01/30/21 11:00 Dose: 999 mls/hr Documented by: Magnesium Sulfate 2 gm/ Premix 50 mls @ 25 mls/hr IV ONETIME ONE Stop: 01/30/21 15:28 Last Admin: 01/30/21 14:02 Dose: 25 mls/hr Documented by: Lactated Ringer's (Ringers, Lactated) 1,000 mls @ 100 mls/hr IV ASDIRECTED DIAMANTE Last Infusion: 01/31/21 17:35 Dose: 75 mls/hr Documented by: Lactated Ringer's (Ringers, Lactated) 1,000 mls @ 1,000 mls/hr IV .BOLUS ONE Stop: 01/31/21 09:44 Last Admin: 01/31/21 08:54 Dose: 1,000 mls/hr Documented by: Lactated Ringer's (Ringers, Lactated) 1,000 mls @ 1,000 mls/hr IV .BOLUS ONE Stop: 01/31/21 10:44 Last Admin: 01/31/21 10:10 Dose: 1,000 mls/hr Documented by: Piperacillin Sod/Tazobactam (Sod 4.5 gm/ Sodium Chloride) 100 mls @ 25 mls/hr IV Q8H DIAMANTE Last Admin: 02/02/21 03:32 Dose: 25 mls/hr Documented by: Piperacillin Sod/Tazobactam (Sod 4.5 gm/ Sodium Chloride) 100 mls @ 200 mls/hr IV ONETIME ONE Stop: 01/31/21 12:29 Last Admin: 01/31/21 11:58 Dose: 200 mls/hr Documented by: Vancomycin HCl 2 gm/ Sodium (Chloride) 500 mls @ 250 mls/hr IV ONETIME ONE Stop: 01/31/21 13:59 Last Admin: 01/31/21 12:38 Dose: 250 mls/hr Documented by: Vancomycin HCl 1.75 gm/ Sodium (Chloride) 500 mls @ 250 mls/hr IV Q12H DI[facility]TE Stop: 02/02/21 14:00 Last Admin: 02/02/21 11:33 Dose: 250 mls/hr Documented by: Lactated Ringer's (Ringers, Lactated) 1,000 mls @ 75 mls/hr IV ASDIRECTED [facility] Last Infusion: 02/01/21 09:13 Dose: 20 mls/hr Documented by: Lactated Ringer's (Ringers, Lactated) 1,000 mls @ 20 mls/hr IV ASDIRECTED [facility] Last Admin: 02/01/21 14:00 Dose: 20 mls/hr Documented by: Magnesium Sulfate/Dextrose 1 (gm/ Premix) 100 mls @ 100 mls/hr IV ONETIME ONE Stop: 02/01/21 10:29 Last Admin: 02/01/21 09:18 Dose: 100 mls/hr Documented by: Magnesium Sulfate 2 gm/ Premix 50 mls @ 25 mls/hr IV ONETIME ONE Stop: 02/02/21 10:29 Last Admin: 02/02/21 08:17 Dose: 25 mls/hr Documented by: Magnesium Sulfate 2 gm/ Premix 50 mls @ 25 mls/hr IV ONETIME ONE Stop: 02/04/21 11:29 Last Admin: 02/04/21 09:34 Dose: 25 mls/hr Documented by: Potassium Chloride 10 meq/ (Premix) 100 mls @ 100 mls/hr IV Q1H [facility] Stop: 02/04/21 15:59 Last Admin: 02/04/21 14:42 Dose: 100 mls/hr Documented by: Insulin Human Lispro (Insulin Lispro 100 Unit/Ml 10 Ml Vial) 0 unit SUBCUT QIDACANDBED [facility]; Protocol Last Admin: 02/04/21 17:21 Dose: Not Given Documented by: Lorazepam (Lorazepam 2 Mg/Ml Sdv) 0 mg IV ASDIRECTED DIAMANTE; Protocol Last Admin: 02/03/21 17:52 Dose: 1 mg Documented by: Lorazepam (Lorazepam 1 Mg Tab) 1 mg PO Q1H PRN PRN Reason: Withdrawal Symptoms Last Admin: 02/01/21 11:30 Dose: 1 mg Documented by: Metoprolol Succinate (Metoprolol Succinate 50 Mg Tab.Er) 50 mg PO DAILY [facility] Last Admin: 01/31/21 07:24 Dose: 50 mg Documented by: Metoprolol Tartrate (Metoprolol Tartrate 50 Mg Tab) 50 mg PO Q12HR [facility] Last Admin: 02/02/21 20:40 Dose: 50 mg Documented by: Metoprolol Tartrate (Metoprolol Tartrate 50 Mg Tab) 75 mg PO Q12HR [facility] Last Admin: 02/03/21 21:21 Dose: 75 mg Documented by: Multivitamins/Minerals/Vitamin C (Multivitamin Tab) 1 tab PO ONETIME ONE Stop: 01/30/21 13:38 Last Admin: 01/30/21 14:02 Dose: 1 tab Documented by: Potassium Chloride (Potassium Chloride 20 Meq Tab.Er) 40 meq PO ONETIME ONE Stop: 02/03/21 08:38 Last Admin: 02/03/21 08:53 Dose: 40 meq Documented by: Thiamine HCl (Thiamine 100 Mg Tab) 100 mg PO DAILY [facility] Last Admin: 02/04/21 09:35 Dose: 100 mg Documented by: Vancomycin HCl (Pharmacy To Dose - Vancomycin) 1 dose .XX ASDIRECTED PRN PRN Reason: RX TO DOSE VANCO - Exam Quality Assessment: Supplemental Oxygen, DVT Prophylaxis General: Alert, Oriented Neck: Supple Lungs: Normal Respiratory Effort, Decreased Breath Sounds, Crackles Cardiovascular: Irregular Rhythm GI/Abdominal Exam: Normal Bowel Sounds, Soft, Non-Tender Extremities: Pedal Edema Skin: Warm, Dry - Patient Data Lab Results Last 24 hrs: Laboratory Results - last 24 hr 02/04/21 02/05/21 02/05/21 Range/Units 12:35 05:11 05:11 WBC 7.94 (4.23-9.07) K/mm3 RBC 3.42 L (4.63-6.08) M/mm3 Hgb 10.0 L (13.7-17.5) gm/dl Hct 30.9 L (40.1-51.0) % MCV 90.4 (79.0-92.2) fl MCH 29.2 (25.7-32.2) pg MCHC 32.4 (32.2-35.5) g/dl RDW Std Deviation 52.8 H (35.1-43.9) fL Plt Count 198 (163-337) K/mm3 MPV 9.1 L (9.4-12.3) fl Neut % (Auto) 71.9 H (34.0-67.9) % Lymph % (Auto) 12.1 L (21.8-53.1) % [place] % (Auto) 10.5 (5.3-12.2) % Eos % (Auto) 4.7 (0.8-7.0) Baso % (Auto) 0.4 (0.1-1.2) % Neut # (Auto) 5.72 H (1.78-5.38) K/mm3 Lymph # (Auto) 0.96 L (1.32-3.57) K/mm3 [place] # (Auto) 0.83 H (0.30-0.82) K/mm3 Eos # (Auto) 0.37 (0.04-0.54) K/mm3 Baso # (Auto) 0.03 (0.01-0.08) K/mm3 Sodium 138 (136-145) mEq/L Potassium 3.6 (3.5-5.1) mEq/L Chloride 103 (98-107) mEq/L Carbon Dioxide 28 (21-32) mEq/L Anion Gap 10.6 (5-15) BUN 11 (7-18) mg/dL Creatinine 0.9 (0.7-1.3) mg/dL Est Cr Clr Drug Dosing 83.39 mL/min Estimated GFR (MDRD) > 60 (>60) mL/min BUN/Creatinine Ratio 12.2 L (14-18) Glucose 106 H (70-99) mg/dL POC Glucose 124 H (70-99) mg/dL Calcium 8.3 L (8.5-10.1) mg/dL Magnesium 2.6 H (1.8-2.4) mg/dL Total Bilirubin 0.8 (0.2-1.0) mg/dL AST 39 H (15-37) U/L ALT 47 (16-63) U/L Alkaline Phosphatase 52 (46-116) U/L Total Protein 5.7 L (6.4-8.2) g/dl Albumin 2.1 L (3.4-5.0) g/dl Globulin 3.6 gm/dL Albumin/Globulin Ratio 0.6 L (1-2) Result Diagrams: 02/05/21 05:11 02/05/21 05:11 Nelson Results Last 24 hrs: Microbiology 01/31/21 08:25 Aerobic Blood Culture - Preliminary Blood - Venous - Lab Draw NO GROWTH AFTER 5 DAYS Anaerobic Blood Culture - Preliminary NO GROWTH AFTER 5 DAYS 01/31/21 07:55 Aerobic Blood Culture - Preliminary Blood - Venous NO GROWTH AFTER 5 DAYS Anaerobic Blood Culture - Preliminary NO GROWTH AFTER 5 DAYS 01/30/21 14:00 Aerobic Blood Culture - Preliminary Blood - Venous - Lab Draw NO GROWTH AFTER 5 DAYS Anaerobic Blood Culture - Preliminary NO GROWTH AFTER 5 DAYS 01/30/21 13:57 Aerobic Blood Culture - Preliminary Blood - Venous NO GROWTH AFTER 5 DAYS Anaerobic Blood Culture - Preliminary NO GROWTH AFTER 5 DAYS Sepsis Event Note - Evaluation Sepsis Screening Result: No Definite Risk - Focused Exam Vital Signs: Vital Signs Temp Pulse Resp BP Pulse Ox Pulse Ox 02/05/21 06:29 90 L 02/05/21 03:20 92 L 02/05/21 02:38 98.2 F 96 14 100/63 90 L 02/04/21 23:00 84 95 - Problem List Review Problem List Initiated/Reviewed/Updated: Yes - My Orders Last 24 Hours: My Active Orders 02/04/21 09:00 Ampicillin/Sulbactam Na [Unasyn] 3 gm Sodium Chloride 0.9% [Normal Saline] 100 ml IV Q6H Metoprolol Tartrate [Lopressor] 100 mg PO Q12HR 02/04/21 10:35 Patient Status [ADT] Routine 02/05/21 09:00 Furosemide [Lasix] 40 mg IVPUSH BID - Assessment Assessment:: 1. Acute alcohol withdrawal. 2. Aspiration pneumonia. 3. Atrial fibrillation with rapid ventricular rate. 4. Type 2 diabetes mellitus. - Plan Plan:: 1. Acute hypoxic respiratory failure in the setting of aspiration pneumonia. Continue supplemental oxygen. Respiratory therapy consult As needed bronchodilators. Continue antibiotics for full course, reverted back to IV Unasyn 02/04. Will likely require 14-day course. Incentive spirometry encouraged. Daily ambulation saturation trials. 2. Acute alcohol withdrawal. CIWA protocol now discontinued. All sedation has been held. No active signs of withdrawal currently. Patient is not a distraction to his own care and is not aggressive. Day 6 out from last drink. 3. Atrial fibrillation with rapid ventricular response. Continue metoprolol to 100 mg twice daily. Continue Cardizem IR 120 mg 3 times daily with hopeful conversion to Cardizem CD 360 mg. 4. Type 2 diabetes mellitus. Continue hospital hyperglycemia protocol with sliding scale insulin. 5. History of congestive heart failure; otherwise unspecified. Monitor volume status. Direction of 1 L to 1.5 L/day. Daily weights by standing scale. Titrate diuretics as necessary. Increased Lasix to 40 mg IV twice daily CODE STATUS: Full code. DVT prophylaxis: Systemic anticoagulation.
[2021-02-05] MEDS: Magnesium Oxide 400 MG Tab PO SCH ×2 (10:06→21:38)
[2021-02-05] MEDS: Cholecalciferol (Vitamin D3) 5,000 UNIT Cap PO SCH (10:07)
[2021-02-05] MEDS: Rivaroxaban 10 MG Tab PO SCH (10:07)
[2021-02-05] MEDS: Furosemide 40 MG/4 ML VIAL IVPUSH SCH ×2 (10:07→21:38)
[2021-02-05] MEDS: Metoprolol Tartrate 50 MG Tab PO SCH ×2 (10:08→21:38)
[2021-02-05] MEDS: Losartan 25 MG Tab PO SCH (10:09)
[2021-02-05] MEDS: oxyCODONE 5 MG Tab PO PRN (12:15)
[2021-02-05] MEDS: HYDROmorphone 0.5 MG/0.5 ML Syringe IVPUSH PRN ×2 (15:20→22:13)
[2021-02-05] MEDS: Gabapentin 600 MG Tab PO SCH (21:37)
[2021-02-05] MEDS: atorvaSTATin 40 MG Tab PO SCH (21:38)
[2021-02-06] MEDS: Diltiazem IR 60 MG Tab PO SCH ×3 (02:58→18:30)
[2021-02-06] MEDS: Ampicillin/Sulbactam Na 3 GM in Sodium Chloride 0.9% 100 ML IV SCH ×4 (02:58→21:30)
[2021-02-06] MEDS: Furosemide 40 MG/4 ML VIAL IVPUSH SCH ×2 (06:00→13:14)
[2021-02-06] MEDS: Pantoprazole 40 MG Tab.CR PO SCH (06:00)
[2021-02-06] MEDS: HYDROmorphone 0.5 MG/0.5 ML Syringe IVPUSH PRN (06:06)
[2021-02-06] MEDS: Cholecalciferol (Vitamin D3) 5,000 UNIT Cap PO SCH (08:05)
[2021-02-06] MEDS: Magnesium Oxide 400 MG Tab PO SCH ×2 (08:06→21:30)
[2021-02-06] MEDS: Losartan 25 MG Tab PO SCH (08:06)
[2021-02-06] MEDS: Metoprolol Tartrate 50 MG Tab PO SCH ×2 (08:06→21:30)
[2021-02-06] MEDS: Rivaroxaban 10 MG Tab PO SCH (08:07)
--- NOTE | 2021-02-06 10:34 | PCM.PN ---
- General Info Date of Service: 02/06/21 Admission Dx/Problem (Free Text): 1. Afib w/RVR; hx of Afib 2. Hx of Alcoholism and now with alcohol withdrawal syndrome 3. SIRS syndrome; tachycardia/leukocytosis 4. Hx of Type II DM Subjective Update: No acute events overnight. No new nursing concerns. Heart rates acceptable on current regimen of metoprolol and Cardizem. Patient still requiring 3 L supplemental oxygen. Patient has not been out of bed. Patient does not endorse any new specific complaints. - Patient Data Vitals - Most Recent: Last Vital Signs Temp 98.4 F 02/06/21 08:15 Pulse 114 H 02/06/21 08:15 Resp 18 02/06/21 08:15 BP 90/50 L 02/06/21 08:15 Pulse Ox 89 L 02/06/21 08:15 Weight - Most Recent: 257 lb 6.4 oz I&O - Last 24 Hours: Intake & Output 02/05/21 02/06/21 02/06/21 22:59 06:59 14:59 Intake Total 680 500 Output Total 500 1000 Balance 180 -500 Nelson Results Last 24 Hours: Microbiology 01/31/21 08:25 Aerobic Blood Culture - Preliminary Blood - Venous - Lab Draw NO GROWTH AFTER 6 DAYS Anaerobic Blood Culture - Preliminary NO GROWTH AFTER 6 DAYS 01/31/21 07:55 Aerobic Blood Culture - Preliminary Blood - Venous NO GROWTH AFTER 6 DAYS Anaerobic Blood Culture - Preliminary NO GROWTH AFTER 6 DAYS 01/30/21 14:00 Aerobic Blood Culture - Preliminary Blood - Venous - Lab Draw NO GROWTH AFTER 6 DAYS Anaerobic Blood Culture - Preliminary NO GROWTH AFTER 6 DAYS 01/30/21 13:57 Aerobic Blood Culture - Preliminary Blood - Venous NO GROWTH AFTER 6 DAYS Anaerobic Blood Culture - Preliminary NO GROWTH AFTER 6 DAYS Med Orders - Current: Current Medications Acetaminophen (Acetaminophen 325 Mg Tab) 650 mg PO Q4H PRN PRN Reason: Pain (Mild 1-3)/fever Last Admin: 02/02/21 17:27 Dose: 650 mg Documented by: Atorvastatin Calcium (Atorvastatin 40 Mg Tab) 40 mg PO BEDTIME [facility] Last Admin: 02/05/21 21:38 Dose: 40 mg Documented by: Cholecalciferol (Cholecalciferol (Vitamin D3) 5,000 Unit Cap) 5,000 unit PO DAILY [facility] Last Admin: 02/06/21 08:05 Dose: 5,000 unit Documented by: Diltiazem HCl (Diltiazem Ir 60 Mg Tab) 120 mg PO Q8H [facility] Last Admin: 02/06/21 02:58 Dose: 120 mg Documented by: Furosemide (Furosemide 40 Mg/4 Ml Vial) 40 mg IVPUSH BIDDIURETIC [facility] Last Admin: 02/06/21 06:00 Dose: 40 mg Documented by: Gabapentin (Gabapentin 600 Mg Tab) 600 mg PO BEDTIME [facility] Last Admin: 02/05/21 21:37 Dose: 600 mg Documented by: Hydromorphone HCl (Hydromorphone 0.5 Mg/0.5 Ml Syringe) 0.5 mg IVPUSH Q1H PRN PRN Reason: Pain (moderate 4-6) Last Admin: 02/06/21 06:06 Dose: 0.5 mg Documented by: Ampicillin Sodium/Sulbactam (Sodium 3 gm/ Sodium Chloride) 100 mls @ 200 mls/hr IV Q6H [facility] Last Admin: 02/06/21 08:07 Dose: 200 mls/hr Documented by: Magnesium Oxide (Magnesium Oxide 400 Mg Tab) 400 mg PO BID [facility] Last Admin: 02/06/21 08:06 Dose: 400 mg Documented by: Metoprolol Tartrate (Metoprolol Tartrate 50 Mg Tab) 100 mg PO Q12HR [facility] Last Admin: 02/06/21 08:06 Dose: 100 mg Documented by: Ondansetron HCl (Ondansetron 4 Mg/2 Ml Sdv) 4 mg IV Q4H PRN PRN Reason: Nausea/Vomiting Oxycodone HCl (Oxycodone 5 Mg Tab) 5 mg PO Q4H PRN PRN Reason: Pain (moderate 4-6) Last Admin: 02/05/21 12:15 Dose: 5 mg Documented by: Pantoprazole Sodium (Pantoprazole 40 Mg Tab.Cr) 40 mg PO ACBREAKFAST [facility] Last Admin: 02/06/21 06:00 Dose: 40 mg Documented by: Rivaroxaban (Rivaroxaban 10 Mg Tab) 20 mg PO DAILY [facility] Last Admin: 02/06/21 08:07 Dose: 20 mg Documented by: Sodium Chloride (Sodium Chloride 0.9% 10 Ml Syringe) 10 ml FLUSH ASDIRECTED PRN PRN Reason: Keep Vein Open Last Admin: 01/30/21 10:32 Dose: 10 ml Documented by: Trazodone HCl (Trazodone 50 Mg Tab) 50 mg PO BEDTIME PRN PRN Reason: Sleep Discontinued Medications Amoxicillin/Clavulanate Potassium (Amoxicillin/Clavulanate K 500-125 Mg Tab) 1 tab PO Q8H [facility] Last Admin: 02/04/21 06:20 Dose: 1 tab Documented by: Chlordiazepoxide HCl (Chlordiazepoxide 25 Mg Cap) 50 mg PO BID [facility] Last Admin: 02/04/21 09:42 Dose: Not Given Documented by: Chlordiazepoxide HCl (Chlordiazepoxide 25 Mg Cap) 25 mg PO BID [facility] Last Admin: 02/02/21 20:41 Dose: Not Given Documented by: Cholecalciferol (Cholecalciferol (Vitamin D3) 5,000 Unit Tab) 5,000 unit PO DAILY [facility] Last Admin: 01/30/21 14:14 Dose: Not Given Documented by: Diltiazem HCl (Diltiazem 50 Mg/10 Ml Sdv) 10 mg IVPUSH ONETIME ONE Stop: 01/30/21 10:01 Last Admin: 01/30/21 10:07 Dose: 10 mg Documented by: Diltiazem HCl (Diltiazem Ir 60 Mg Tab) 120 mg PO TID [facility] Last Admin: 02/01/21 11:40 Dose: 120 mg Documented by: Diltiazem HCl (Diltiazem 50 Mg/10 Ml Sdv) 10 mg IVPUSH ONETIME ONE Stop: 02/02/21 06:00 Last Admin: 02/02/21 06:12 Dose: 10 mg Documented by: Folic Acid (Folic Acid 1 Mg Tab) 1 mg PO DAILY [facility] Stop: 02/01/21 09:01 Last Admin: 02/01/21 08:21 Dose: 1 mg Documented by: Furosemide (Furosemide 20 Mg/2 Ml Vial) 20 mg IVPUSH NOW ONE Stop: 02/01/21 20:21 Last Admin: 02/01/21 20:35 Dose: 20 mg Documented by: Furosemide (Furosemide 20 Mg/2 Ml Vial) 20 mg IVPUSH NOW ONE Stop: 02/02/21 11:31 Last Admin: 02/02/21 11:33 Dose: 20 mg Documented by: Furosemide (Furosemide 20 Mg Tab) 20 mg PO DAILY [facility] Last Admin: 02/03/21 08:01 Dose: 20 mg Documented by: Furosemide (Furosemide 40 Mg/4 Ml Vial) 40 mg IVPUSH NOW ONE Stop: 02/03/21 22:46 Last Admin: 02/03/21 22:52 Dose: 40 mg Documented by: Furosemide (Furosemide 40 Mg/4 Ml Vial) 40 mg IVPUSH DAILY [facility] Last Admin: 02/04/21 09:34 Dose: 40 mg Documented by: Furosemide (Furosemide 40 Mg/4 Ml Vial) 40 mg IVPUSH BID [facility] Stop: 02/05/21 23:52 Last Admin: 02/05/21 21:38 Dose: 40 mg Documented by: Haloperidol (Haloperidol 1 Mg Tab) 2 mg PO ONETIME ONE Stop: 02/01/21 09:04 Last Admin: 02/01/21 17:12 Dose: Not Given Documented by: Haloperidol (Haloperidol 1 Mg Tab) 2 mg PO ONETIME ONE Stop: 02/01/21 19:09 Last Admin: 02/02/21 05:02 Dose: Not Given Documented by: Hydromorphone HCl (Hydromorphone 1 Mg/Ml Syringe) 1 mg IVPUSH ONETIME ONE Stop: 01/30/21 10:01 Last Admin: 01/30/21 10:07 Dose: 1 mg Documented by: Hydromorphone HCl (Hydromorphone 0.5 Mg/0.5 Ml Syringe) 0.5 mg IVPUSH ONETIME ONE Stop: 01/30/21 12:01 Last Admin: 01/30/21 12:07 Dose: 0.5 mg Documented by: Diltiazem HCl 100 mg/ Sodium (Chloride) 100 mls @ 10 mls/hr IV TITRATE [facility]; Protocol Last Titration: 02/03/21 11:20 Dose: 0 mg/hr, 0 mls/hr Documented by: Sodium Chloride (Normal Saline) 1,000 mls @ 125 mls/hr IV ASDIRECTED [facility] Last Infusion: 01/30/21 12:08 Dose: 125 mls/hr Documented by: Sodium Chloride (Normal Saline) 1,000 mls @ 999 mls/hr IV ONETIME ONE Stop: 01/30/21 12:00 Last Admin: 01/30/21 11:00 Dose: 999 mls/hr Documented by: Magnesium Sulfate 2 gm/ Premix 50 mls @ 25 mls/hr IV ONETIME ONE Stop: 01/30/21 15:28 Last Admin: 01/30/21 14:02 Dose: 25 mls/hr Documented by: Lactated Ringer's (Ringers, Lactated) 1,000 mls @ 100 mls/hr IV ASDIRECTED [facility] Last Infusion: 01/31/21 17:35 Dose: 75 mls/hr Documented by: Lactated Ringer's (Ringers, Lactated) 1,000 mls @ 1,000 mls/hr IV .BOLUS ONE Stop: 01/31/21 09:44 Last Admin: 01/31/21 08:54 Dose: 1,000 mls/hr Documented by: Lactated Ringer's (Ringers, Lactated) 1,000 mls @ 1,000 mls/hr IV .BOLUS ONE Stop: 01/31/21 10:44 Last Admin: 01/31/21 10:10 Dose: 1,000 mls/hr Documented by: Piperacillin Sod/Tazobactam (Sod 4.5 gm/ Sodium Chloride) 100 mls @ 25 mls/hr IV Q8H [facility] Last Admin: 02/02/21 03:32 Dose: 25 mls/hr Documented by: Piperacillin Sod/Tazobactam (Sod 4.5 gm/ Sodium Chloride) 100 mls @ 200 mls/hr IV ONETIME ONE Stop: 01/31/21 12:29 Last Admin: 01/31/21 11:58 Dose: 200 mls/hr Documented by: Vancomycin HCl 2 gm/ Sodium (Chloride) 500 mls @ 250 mls/hr IV ONETIME ONE Stop: 01/31/21 13:59 Last Admin: 01/31/21 12:38 Dose: 250 mls/hr Documented by: Vancomycin HCl 1.75 gm/ Sodium (Chloride) 500 mls @ 250 mls/hr IV Q12H [facility] Stop: 02/02/21 14:00 Last Admin: 02/02/21 11:33 Dose: 250 mls/hr Documented by: Lactated Ringer's (Ringers, Lactated) 1,000 mls @ 75 mls/hr IV ASDIRECTED [facility] Last Infusion: 02/01/21 09:13 Dose: 20 mls/hr Documented by: Lactated Ringer's (Ringers, Lactated) 1,000 mls @ 20 mls/hr IV ASDIRECTED [facility] Last Admin: 02/01/21 14:00 Dose: 20 mls/hr Documented by: Magnesium Sulfate/Dextrose 1 (gm/ Premix) 100 mls @ 100 mls/hr IV ONETIME ONE Stop: 02/01/21 10:29 Last Admin: 02/01/21 09:18 Dose: 100 mls/hr Documented by: Magnesium Sulfate 2 gm/ Premix 50 mls @ 25 mls/hr IV ONETIME ONE Stop: 02/02/21 10:29 Last Admin: 02/02/21 08:17 Dose: 25 mls/hr Documented by: Magnesium Sulfate 2 gm/ Premix 50 mls @ 25 mls/hr IV ONETIME ONE Stop: 02/04/21 11:29 Last Admin: 02/04/21 09:34 Dose: 25 mls/hr Documented by: Potassium Chloride 10 meq/ (Premix) 100 mls @ 100 mls/hr IV Q1H [facility] Stop: 02/04/21 15:59 Last Admin: 02/04/21 14:42 Dose: 100 mls/hr Documented by: Insulin Human Lispro (Insulin Lispro 100 Unit/Ml 10 Ml Vial) 0 unit SUBCUT QIDACANDBED [facility]; Protocol Last Admin: 02/04/21 17:21 Dose: Not Given Documented by: Lorazepam (Lorazepam 2 Mg/Ml Sdv) 0 mg IV ASDIRECTED [facility]; Protocol Last Admin: 02/03/21 17:52 Dose: 1 mg Documented by: Lorazepam (Lorazepam 1 Mg Tab) 1 mg PO Q1H PRN PRN Reason: Withdrawal Symptoms Last Admin: 02/01/21 11:30 Dose: 1 mg Documented by: Losartan Potassium (Losartan 25 Mg Tab) 25 mg PO DAILY [facility] Last Admin: 02/06/21 08:06 Dose: 25 mg Documented by: Metoprolol Succinate (Metoprolol Succinate 50 Mg Tab.Er) 50 mg PO DAILY [facility] Last Admin: 01/31/21 07:24 Dose: 50 mg Documented by: Metoprolol Tartrate (Metoprolol Tartrate 50 Mg Tab) 50 mg PO Q12HR [facility] Last Admin: 02/02/21 20:40 Dose: 50 mg Documented by: Metoprolol Tartrate (Metoprolol Tartrate 50 Mg Tab) 75 mg PO Q12HR [facility] Last Admin: 02/03/21 21:21 Dose: 75 mg Documented by: Multivitamins/Minerals/Vitamin C (Multivitamin Tab) 1 tab PO ONETIME ONE Stop: 01/30/21 13:38 Last Admin: 01/30/21 14:02 Dose: 1 tab Documented by: Potassium Chloride (Potassium Chloride 20 Meq Tab.Er) 40 meq PO ONETIME ONE Stop: 02/03/21 08:38 Last Admin: 02/03/21 08:53 Dose: 40 meq Documented by: Thiamine HCl (Thiamine 100 Mg Tab) 100 mg PO DAILY [facility] Last Admin: 02/04/21 09:35 Dose: 100 mg Documented by: Vancomycin HCl (Pharmacy To Dose - Vancomycin) 1 dose .XX ASDIRECTED PRN PRN Reason: RX TO DOSE VANCO - Exam Quality Assessment: Supplemental Oxygen General: Alert, Cooperative, No Acute Distress Neck: Supple Lungs: Normal Respiratory Effort, Decreased Breath Sounds Cardiovascular: Irregular Rhythm GI/Abdominal Exam: Normal Bowel Sounds, Soft, Non-Tender Extremities: Pedal Edema (3-4+ pitting edema) Neurological: No New Focal Deficit Psy/Mental Status: Alert - Patient Data Result Diagrams: 02/05/21 05:11 02/05/21 05:11 Nelson Results Last 24 hrs: Microbiology 01/31/21 08:25 Aerobic Blood Culture - Preliminary Blood - Venous - Lab Draw NO GROWTH AFTER 6 DAYS Anaerobic Blood Culture - Preliminary NO GROWTH AFTER 6 DAYS 01/31/21 07:55 Aerobic Blood Culture - Preliminary Blood - Venous NO GROWTH AFTER 6 DAYS Anaerobic Blood Culture - Preliminary NO GROWTH AFTER 6 DAYS 01/30/21 14:00 Aerobic Blood Culture - Preliminary Blood - Venous - Lab Draw NO GROWTH AFTER 6 DAYS Anaerobic Blood Culture - Preliminary NO GROWTH AFTER 6 DAYS 01/30/21 13:57 Aerobic Blood Culture - Preliminary Blood - Venous NO GROWTH AFTER 6 DAYS Anaerobic Blood Culture - Preliminary NO GROWTH AFTER 6 DAYS Sepsis Event Note - Evaluation Sepsis Screening Result: No Definite Risk - Focused Exam Vital Signs: Vital Signs Temp Pulse Resp BP Pulse Ox 02/06/21 08:15 98.4 F 114 H 18 90/50 L 89 L 02/06/21 08:06 64 105/78 02/06/21 04:46 98.4 F 64 22 H 105/78 92 L 02/06/21 00:44 97.9 F 97 18 92/54 L 91 L - Problem List Review Problem List Initiated/Reviewed/Updated: Yes - Assessment Assessment:: 1. Acute alcohol withdrawal. 2. Aspiration pneumonia. 3. Atrial fibrillation with rapid ventricular rate. 4. Type 2 diabetes mellitus. - Plan Plan:: 1. Acute hypoxic respiratory failure in the setting of aspiration pneumonia. Continue supplemental oxygen, wean as tolerated. Respiratory therapy consult As needed bronchodilators. Continue antibiotics for full course, reverted back to IV Unasyn 02/04. Continue antibiotics for 14-day course. Incentive spirometry encouraged. Daily ambulation saturation trials. 2. Acute alcohol withdrawal. CIWA protocol now discontinued. All sedation has been held. No active signs of withdrawal currently. Patient is not a distraction to his own care and is not aggressive. 3. Atrial fibrillation with rapid ventricular response. Continue metoprolol to 100 mg twice daily. Continue Cardizem IR 120 mg 3 times daily with conversion to Cardizem CD 360 mg at time of discharge. 4. Type 2 diabetes mellitus. Continue hospital hyperglycemia protocol with sliding scale insulin. 5. History of chronic systolic congestive heart failure. Monitor volume status. Direction of 1 L to 1.5 L/day. Daily weights by standing scale. Titrate diuretics as necessary. Continue Lasix to 40 mg IV twice daily CODE STATUS: Full code. DVT prophylaxis: Systemic anticoagulation.
[2021-02-06] MEDS: atorvaSTATin 40 MG Tab PO SCH (21:30)
[2021-02-06] MEDS: Gabapentin 600 MG Tab PO SCH (21:30)
[2021-02-07] MEDS: Ampicillin/Sulbactam Na 3 GM in Sodium Chloride 0.9% 100 ML IV SCH ×4 (03:32→21:17)
[2021-02-07] MEDS: Diltiazem IR 60 MG Tab PO SCH ×2 (03:33→11:04)
[2021-02-07] MEDS: Acetaminophen 325 MG Tab PO PRN (03:55)
[2021-02-07] MEDS: Furosemide 40 MG/4 ML VIAL IVPUSH SCH ×2 (06:22→13:34)
[2021-02-07] MEDS: Pantoprazole 40 MG Tab.CR PO SCH (06:22)
[2021-02-07] MEDS ORDERED: Potassium Chloride 20 MEQ Tab.ER PO ONE ×4 (07:29→12:00)
[2021-02-07] MEDS: Metoprolol Tartrate 50 MG Tab PO SCH (08:15)
[2021-02-07] MEDS: Rivaroxaban 10 MG Tab PO SCH (08:16)
[2021-02-07] MEDS: Magnesium Oxide 400 MG Tab PO SCH ×2 (08:16→21:17)
[2021-02-07] MEDS: Cholecalciferol (Vitamin D3) 5,000 UNIT Cap PO SCH (08:17)
--- NOTE | 2021-02-07 08:49 | PCM.PN ---
- General Info Date of Service: 02/07/21 Admission Dx/Problem (Free Text): 1. Afib w/RVR; hx of Afib 2. Hx of Alcoholism and now with alcohol withdrawal syndrome 3. SIRS syndrome; tachycardia/leukocytosis 4. Hx of Type II DM Subjective Update: No acute events overnight. No new nursing concerns. Patient still requiring 1 to 3 L of supplemental oxygen. Nursing continuing to hear Rales bibasilar. Patient mostly wants to sleep. Not motivated. I's and O's with net change of -500. Hypokalemic this morning requiring replacement. - Patient Data Vitals - Most Recent: Last Vital Signs Temp 98.1 F 02/07/21 07:24 Pulse 91 02/07/21 08:15 Resp 18 02/07/21 07:24 BP 119/87 02/07/21 08:15 Pulse Ox 92 L 02/07/21 07:24 Weight - Most Recent: 253 lb 6.4 oz I&O - Last 24 Hours: Intake & Output 02/06/21 02/07/21 02/07/21 22:59 06:59 14:59 Intake Total 820 500 Output Total 1500 500 Balance -680 0 Lab Results Last 24 Hours: Laboratory Results - last 24 hr 02/07/21 02/07/21 Range/Units 06:07 06:07 WBC 6.54 (4.23-9.07) K/mm3 RBC 3.24 L (4.63-6.08) M/mm3 Hgb 9.5 L (13.7-17.5) gm/dl Hct 29.5 L (40.1-51.0) % MCV 91.0 (79.0-92.2) fl MCH 29.3 (25.7-32.2) pg MCHC 32.2 (32.2-35.5) g/dl RDW Std Deviation 52.0 H (35.1-43.9) fL Plt Count 232 (163-337) K/mm3 MPV 8.9 L (9.4-12.3) fl Neut % (Auto) 66.1 (34.0-67.9) % Lymph % (Auto) 15.4 L (21.8-53.1) % [place] % (Auto) 12.1 (5.3-12.2) % Eos % (Auto) 4.9 (0.8-7.0) Baso % (Auto) 0.6 (0.1-1.2) % Neut # (Auto) 4.32 (1.78-5.38) K/mm3 Lymph # (Auto) 1.01 L (1.32-3.57) K/mm3 [place] # (Auto) 0.79 (0.30-0.82) K/mm3 Eos # (Auto) 0.32 (0.04-0.54) K/mm3 Baso # (Auto) 0.04 (0.01-0.08) K/mm3 Sodium 141 (136-145) mEq/L Potassium 2.9 L (3.5-5.1) mEq/L Chloride 102 (98-107) mEq/L Carbon Dioxide 30 (21-32) mEq/L Anion Gap 11.9 (5-15) BUN 8 (7-18) mg/dL Creatinine 1.0 (0.7-1.3) mg/dL Est Cr Clr Drug Dosing 75.05 mL/min Estimated GFR (MDRD) > 60 (>60) mL/min BUN/Creatinine Ratio 8.0 L (14-18) Glucose 171 H (70-99) mg/dL Calcium 8.1 L (8.5-10.1) mg/dL Nelson Results Last 24 Hours: Microbiology 01/31/21 08:25 Aerobic Blood Culture - Final Blood - Venous - Lab Draw NO GROWTH AFTER 7 DAYS Anaerobic Blood Culture - Final NO GROWTH AFTER 7 DAYS 01/31/21 07:55 Aerobic Blood Culture - Final Blood - Venous NO GROWTH AFTER 7 DAYS Anaerobic Blood Culture - Final NO GROWTH AFTER 7 DAYS 01/30/21 14:00 Aerobic Blood Culture - Final Blood - Venous - Lab Draw NO GROWTH AFTER 7 DAYS Anaerobic Blood Culture - Final NO GROWTH AFTER 7 DAYS 01/30/21 13:57 Aerobic Blood Culture - Final Blood - Venous NO GROWTH AFTER 7 DAYS Anaerobic Blood Culture - Final NO GROWTH AFTER 7 DAYS Med Orders - Current: Current Medications Acetaminophen (Acetaminophen 325 Mg Tab) 650 mg PO Q4H PRN PRN Reason: Pain (Mild 1-3)/fever Last Admin: 02/07/21 03:55 Dose: 650 mg Documented by: Atorvastatin Calcium (Atorvastatin 40 Mg Tab) 40 mg PO BEDTIME DIAMANTE Last Admin: 02/06/21 21:30 Dose: 40 mg Documented by: Cholecalciferol (Cholecalciferol (Vitamin D3) 5,000 Unit Cap) 5,000 unit PO DAILY [facility] Last Admin: 02/07/21 08:17 Dose: 5,000 unit Documented by: Diltiazem HCl (Diltiazem Ir 60 Mg Tab) 120 mg PO Q8H [facility] Last Admin: 02/07/21 03:33 Dose: 120 mg Documented by: Furosemide (Furosemide 40 Mg/4 Ml Vial) 40 mg IVPUSH BIDDIURETIC [facility] Last Admin: 02/07/21 06:22 Dose: 40 mg Documented by: Gabapentin (Gabapentin 600 Mg Tab) 600 mg PO BEDTIME [facility] Last Admin: 02/06/21 21:30 Dose: 600 mg Documented by: Hydromorphone HCl (Hydromorphone 0.5 Mg/0.5 Ml Syringe) 0.5 mg IVPUSH Q1H PRN PRN Reason: Pain (moderate 4-6) Last Admin: 02/06/21 06:06 Dose: 0.5 mg Documented by: Ampicillin Sodium/Sulbactam (Sodium 3 gm/ Sodium Chloride) 100 mls @ 200 mls/hr IV Q6H [facility] Last Admin: 02/07/21 08:17 Dose: 200 mls/hr Documented by: Magnesium Oxide (Magnesium Oxide 400 Mg Tab) 400 mg PO BID [facility] Last Admin: 02/07/21 08:16 Dose: 400 mg Documented by: Metoprolol Tartrate (Metoprolol Tartrate 50 Mg Tab) 100 mg PO Q12HR [facility] Last Admin: 02/07/21 08:15 Dose: 100 mg Documented by: Ondansetron HCl (Ondansetron 4 Mg/2 Ml Sdv) 4 mg IV Q4H PRN PRN Reason: Nausea/Vomiting Oxycodone HCl (Oxycodone 5 Mg Tab) 5 mg PO Q4H PRN PRN Reason: Pain (moderate 4-6) Last Admin: 02/05/21 12:15 Dose: 5 mg Documented by: Pantoprazole Sodium (Pantoprazole 40 Mg Tab.Cr) 40 mg PO ACBREAKFAST [facility] Last Admin: 02/07/21 06:22 Dose: 40 mg Documented by: Potassium Chloride (Potassium Chloride 20 Meq Tab.Er) 40 meq PO ONETIME ONE Stop: 02/07/21 09:01 Last Admin: 02/07/21 08:16 Dose: 40 meq Documented by: Potassium Chloride (Potassium Chloride 20 Meq Tab.Er) 40 meq PO ONETIME ONE Stop: 02/07/21 12:01 Rivaroxaban (Rivaroxaban 10 Mg Tab) 20 mg PO DAILY [facility] Last Admin: 02/07/21 08:16 Dose: 20 mg Documented by: Sodium Chloride (Sodium Chloride 0.9% 10 Ml Syringe) 10 ml FLUSH ASDIRECTED PRN PRN Reason: Keep Vein Open Last Admin: 01/30/21 10:32 Dose: 10 ml Documented by: Trazodone HCl (Trazodone 50 Mg Tab) 50 mg PO BEDTIME PRN PRN Reason: Sleep Last Admin: 02/06/21 21:30 Dose: 50 mg Documented by: Discontinued Medications Amoxicillin/Clavulanate Potassium (Amoxicillin/Clavulanate K 500-125 Mg Tab) 1 tab PO Q8H [facility] Last Admin: 02/04/21 06:20 Dose: 1 tab Documented by: Chlordiazepoxide HCl (Chlordiazepoxide 25 Mg Cap) 50 mg PO BID [facility] Last Admin: 02/04/21 09:42 Dose: Not Given Documented by: Chlordiazepoxide HCl (Chlordiazepoxide 25 Mg Cap) 25 mg PO BID [facility] Last Admin: 02/02/21 20:41 Dose: Not Given Documented by: Cholecalciferol (Cholecalciferol (Vitamin D3) 5,000 Unit Tab) 5,000 unit PO DAILY [facility] Last Admin: 01/30/21 14:14 Dose: Not Given Documented by: Diltiazem HCl (Diltiazem 50 Mg/10 Ml Sdv) 10 mg IVPUSH ONETIME ONE Stop: 01/30/21 10:01 Last Admin: 01/30/21 10:07 Dose: 10 mg Documented by: Diltiazem HCl (Diltiazem Ir 60 Mg Tab) 120 mg PO TID [facility] Last Admin: 02/01/21 11:40 Dose: 120 mg Documented by: Diltiazem HCl (Diltiazem 50 Mg/10 Ml Sdv) 10 mg IVPUSH ONETIME ONE Stop: 02/02/21 06:00 Last Admin: 02/02/21 06:12 Dose: 10 mg Documented by: Folic Acid (Folic Acid 1 Mg Tab) 1 mg PO DAILY [facility] Stop: 02/01/21 09:01 Last Admin: 02/01/21 08:21 Dose: 1 mg Documented by: Furosemide (Furosemide 20 Mg/2 Ml Vial) 20 mg IVPUSH NOW ONE Stop: 02/01/21 20:21 Last Admin: 02/01/21 20:35 Dose: 20 mg Documented by: Furosemide (Furosemide 20 Mg/2 Ml Vial) 20 mg IVPUSH NOW ONE Stop: 02/02/21 11:31 Last Admin: 02/02/21 11:33 Dose: 20 mg Documented by: Furosemide (Furosemide 20 Mg Tab) 20 mg PO DAILY [facility] Last Admin: 02/03/21 08:01 Dose: 20 mg Documented by: Furosemide (Furosemide 40 Mg/4 Ml Vial) 40 mg IVPUSH NOW ONE Stop: 02/03/21 22:46 Last Admin: 02/03/21 22:52 Dose: 40 mg Documented by: Furosemide (Furosemide 40 Mg/4 Ml Vial) 40 mg IVPUSH DAILY [facility] Last Admin: 02/04/21 09:34 Dose: 40 mg Documented by: Furosemide (Furosemide 40 Mg/4 Ml Vial) 40 mg IVPUSH BID [facility] Stop: 02/05/21 23:52 Last Admin: 02/05/21 21:38 Dose: 40 mg Documented by: Haloperidol (Haloperidol 1 Mg Tab) 2 mg PO ONETIME ONE Stop: 02/01/21 09:04 Last Admin: 02/01/21 17:12 Dose: Not Given Documented by: Haloperidol (Haloperidol 1 Mg Tab) 2 mg PO ONETIME ONE Stop: 02/01/21 19:09 Last Admin: 02/02/21 05:02 Dose: Not Given Documented by: Hydromorphone HCl (Hydromorphone 1 Mg/Ml Syringe) 1 mg IVPUSH ONETIME ONE Stop: 01/30/21 10:01 Last Admin: 01/30/21 10:07 Dose: 1 mg Documented by: Hydromorphone HCl (Hydromorphone 0.5 Mg/0.5 Ml Syringe) 0.5 mg IVPUSH ONETIME ONE Stop: 01/30/21 12:01 Last Admin: 01/30/21 12:07 Dose: 0.5 mg Documented by: Diltiazem HCl 100 mg/ Sodium (Chloride) 100 mls @ 10 mls/hr IV TITRATE [facility]; Protocol Last Titration: 02/03/21 11:20 Dose: 0 mg/hr, 0 mls/hr Documented by: Sodium Chloride (Normal Saline) 1,000 mls @ 125 mls/hr IV ASDIRECTED [facility] Last Infusion: 01/30/21 12:08 Dose: 125 mls/hr Documented by: Sodium Chloride (Normal Saline) 1,000 mls @ 999 mls/hr IV ONETIME ONE Stop: 01/30/21 12:00 Last Admin: 01/30/21 11:00 Dose: 999 mls/hr Documented by: Magnesium Sulfate 2 gm/ Premix 50 mls @ 25 mls/hr IV ONETIME ONE Stop: 01/30/21 15:28 Last Admin: 01/30/21 14:02 Dose: 25 mls/hr Documented by: Lactated Ringer's (Ringers, Lactated) 1,000 mls @ 100 mls/hr IV ASDIRECTED [facility] Last Infusion: 01/31/21 17:35 Dose: 75 mls/hr Documented by: Lactated Ringer's (Ringers, Lactated) 1,000 mls @ 1,000 mls/hr IV .BOLUS ONE Stop: 01/31/21 09:44 Last Admin: 01/31/21 08:54 Dose: 1,000 mls/hr Documented by: Lactated Ringer's (Ringers, Lactated) 1,000 mls @ 1,000 mls/hr IV .BOLUS ONE Stop: 01/31/21 10:44 Last Admin: 01/31/21 10:10 Dose: 1,000 mls/hr Documented by: Piperacillin Sod/Tazobactam (Sod 4.5 gm/ Sodium Chloride) 100 mls @ 25 mls/hr IV Q8H [facility] Last Admin: 02/02/21 03:32 Dose: 25 mls/hr Documented by: Piperacillin Sod/Tazobactam (Sod 4.5 gm/ Sodium Chloride) 100 mls @ 200 mls/hr IV ONETIME ONE Stop: 01/31/21 12:29 Last Admin: 01/31/21 11:58 Dose: 200 mls/hr Documented by: Vancomycin HCl 2 gm/ Sodium (Chloride) 500 mls @ 250 mls/hr IV ONETIME ONE Stop: 01/31/21 13:59 Last Admin: 01/31/21 12:38 Dose: 250 mls/hr Documented by: Vancomycin HCl 1.75 gm/ Sodium (Chloride) 500 mls @ 250 mls/hr IV Q12H DIAMANTE Stop: 02/02/21 14:00 Last Admin: 02/02/21 11:33 Dose: 250 mls/hr Documented by: Lactated Ringer's (Ringers, Lactated) 1,000 mls @ 75 mls/hr IV ASDIRECTED [facility] Last Infusion: 02/01/21 09:13 Dose: 20 mls/hr Documented by: Lactated Ringer's (Ringers, Lactated) 1,000 mls @ 20 mls/hr IV ASDIRECTED [facility] Last Admin: 02/01/21 14:00 Dose: 20 mls/hr Documented by: Magnesium Sulfate/Dextrose 1 (gm/ Premix) 100 mls @ 100 mls/hr IV ONETIME ONE Stop: 02/01/21 10:29 Last Admin: 02/01/21 09:18 Dose: 100 mls/hr Documented by: Magnesium Sulfate 2 gm/ Premix 50 mls @ 25 mls/hr IV ONETIME ONE Stop: 02/02/21 10:29 Last Admin: 02/02/21 08:17 Dose: 25 mls/hr Documented by: Magnesium Sulfate 2 gm/ Premix 50 mls @ 25 mls/hr IV ONETIME ONE Stop: 02/04/21 11:29 Last Admin: 02/04/21 09:34 Dose: 25 mls/hr Documented by: Potassium Chloride 10 meq/ (Premix) 100 mls @ 100 mls/hr IV Q1H [facility] Stop: 02/04/21 15:59 Last Admin: 02/04/21 14:42 Dose: 100 mls/hr Documented by: Insulin Human Lispro (Insulin Lispro 100 Unit/Ml 10 Ml Vial) 0 unit SUBCUT QIDACANDBED [facility]; Protocol Last Admin: 02/04/21 17:21 Dose: Not Given Documented by: Lorazepam (Lorazepam 2 Mg/Ml Sdv) 0 mg IV ASDIRECTED [facility]; Protocol Last Admin: 02/03/21 17:52 Dose: 1 mg Documented by: Lorazepam (Lorazepam 1 Mg Tab) 1 mg PO Q1H PRN PRN Reason: Withdrawal Symptoms Last Admin: 02/01/21 11:30 Dose: 1 mg Documented by: Losartan Potassium (Losartan 25 Mg Tab) 25 mg PO DAILY [facility] Last Admin: 02/06/21 08:06 Dose: 25 mg Documented by: Metoprolol Succinate (Metoprolol Succinate 50 Mg Tab.Er) 50 mg PO DAILY [facility] Last Admin: 01/31/21 07:24 Dose: 50 mg Documented by: Metoprolol Tartrate (Metoprolol Tartrate 50 Mg Tab) 50 mg PO Q12HR [facility] Last Admin: 02/02/21 20:40 Dose: 50 mg Documented by: Metoprolol Tartrate (Metoprolol Tartrate 50 Mg Tab) 75 mg PO Q12HR [facility] Last Admin: 02/03/21 21:21 Dose: 75 mg Documented by: Multivitamins/Minerals/Vitamin C (Multivitamin Tab) 1 tab PO ONETIME ONE Stop: 01/30/21 13:38 Last Admin: 01/30/21 14:02 Dose: 1 tab Documented by: Potassium Chloride (Potassium Chloride 20 Meq Tab.Er) 40 meq PO ONETIME ONE Stop: 02/03/21 08:38 Last Admin: 02/03/21 08:53 Dose: 40 meq Documented by: Potassium Chloride (Potassium Chloride 20 Meq Tab.Er) 40 meq PO ONETIME ONE Stop: 02/07/21 08:01 Potassium Chloride (Potassium Chloride 20 Meq Tab.Er) 40 meq PO ONETIME ONE Stop: 02/07/21 07:30 Last Admin: 02/07/21 07:36 Dose: 40 meq Documented by: Thiamine HCl (Thiamine 100 Mg Tab) 100 mg PO DAILY [facility] Last Admin: 02/04/21 09:35 Dose: 100 mg Documented by: Vancomycin HCl (Pharmacy To Dose - Vancomycin) 1 dose .XX ASDIRECTED PRN PRN Reason: RX TO DOSE VANCO - Exam General: Other (Ignoring provider and continues to keep his eyes closed wanting to sleep.) Lungs: Normal Respiratory Effort, Rales (Bibasilar rales.). No: Rhonchi, Stridor, Wheezing Cardiovascular: Irregular Rhythm GI/Abdominal Exam: Normal Bowel Sounds, Soft, Non-Tender Extremities: Pedal Edema Skin: Warm, Dry Neurological: No New Focal Deficit, Other (Warnicke's encephalopathy.) - Patient Data Lab Results Last 24 hrs: Laboratory Results - last 24 hr 02/07/21 02/07/21 Range/Units 06:07 06:07 WBC 6.54 (4.23-9.07) K/mm3 RBC 3.24 L (4.63-6.08) M/mm3 Hgb 9.5 L (13.7-17.5) gm/dl Hct 29.5 L (40.1-51.0) % MCV 91.0 (79.0-92.2) fl MCH 29.3 (25.7-32.2) pg MCHC 32.2 (32.2-35.5) g/dl RDW Std Deviation 52.0 H (35.1-43.9) fL Plt Count 232 (163-337) K/mm3 MPV 8.9 L (9.4-12.3) fl Neut % (Auto) 66.1 (34.0-67.9) % Lymph % (Auto) 15.4 L (21.8-53.1) % [place] % (Auto) 12.1 (5.3-12.2) % Eos % (Auto) 4.9 (0.8-7.0) Baso % (Auto) 0.6 (0.1-1.2) % Neut # (Auto) 4.32 (1.78-5.38) K/mm3 Lymph # (Auto) 1.01 L (1.32-3.57) K/mm3 [place] # (Auto) 0.79 (0.30-0.82) K/mm3 Eos # (Auto) 0.32 (0.04-0.54) K/mm3 Baso # (Auto) 0.04 (0.01-0.08) K/mm3 Sodium 141 (136-145) mEq/L Potassium 2.9 L (3.5-5.1) mEq/L Chloride 102 (98-107) mEq/L Carbon Dioxide 30 (21-32) mEq/L Anion Gap 11.9 (5-15) BUN 8 (7-18) mg/dL Creatinine 1.0 (0.7-1.3) mg/dL Est Cr Clr Drug Dosing 75.05 mL/min Estimated GFR (MDRD) > 60 (>60) mL/min BUN/Creatinine Ratio 8.0 L (14-18) Glucose 171 H (70-99) mg/dL Calcium 8.1 L (8.5-10.1) mg/dL Result Diagrams: 02/07/21 06:07 02/07/21 06:07 [place] Results Last 24 hrs: Microbiology 01/31/21 08:25 Aerobic Blood Culture - Final Blood - Venous - Lab Draw NO GROWTH AFTER 7 DAYS Anaerobic Blood Culture - Final NO GROWTH AFTER 7 DAYS 01/31/21 07:55 Aerobic Blood Culture - Final Blood - Venous NO GROWTH AFTER 7 DAYS Anaerobic Blood Culture - Final NO GROWTH AFTER 7 DAYS 01/30/21 14:00 Aerobic Blood Culture - Final Blood - Venous - Lab Draw NO GROWTH AFTER 7 DAYS Anaerobic Blood Culture - Final NO GROWTH AFTER 7 DAYS 01/30/21 13:57 Aerobic Blood Culture - Final Blood - Venous NO GROWTH AFTER 7 DAYS Anaerobic Blood Culture - Final NO GROWTH AFTER 7 DAYS Sepsis Event Note - Evaluation Sepsis Screening Result: No Definite Risk - Focused Exam Vital Signs: Vital Signs Temp Pulse Resp BP Pulse Ox 02/07/21 08:15 91 119/87 02/07/21 07:24 98.1 F 91 18 119/87 92 L 02/07/21 04:02 102 H 91 L 02/07/21 03:44 98.2 F 106 H 20 105/71 02/06/21 21:30 96 92/62 02/06/21 20:54 90/68 - Problem List Review Problem List Initiated/Reviewed/Updated: Yes - My Orders Last 24 Hours: My Active Orders 02/07/21 08:44 Chest 1V Frontal [CR] Routine 02/07/21 09:00 Potassium Chloride [Klor-Con M20] 40 meq PO ONETIME ONE 02/07/21 12:00 Potassium Chloride [Klor-Con M20] 40 meq PO ONETIME ONE - Assessment Assessment:: 1. Acute alcohol withdrawal. 2. Aspiration pneumonia. 3. Atrial fibrillation with rapid ventricular rate. 4. Type 2 diabetes mellitus. 5. Warnicke's encephalopathy. 6. Chronic systolic congestive heart failure. - Plan Plan:: 1. Acute hypoxic respiratory failure in the setting of aspiration pneumonia. Continue supplemental oxygen, wean as tolerated. Respiratory therapy consult As needed bronchodilators. Continue antibiotics for full course, reverted back to IV Unasyn 02/04. Will require 1 additional day of therapy to complete a 10-day course. Incentive spirometry encouraged. Daily ambulation saturation trials. 2. Acute alcohol withdrawal. CIWA protocol now discontinued. All sedation has been held. No active signs of withdrawal. Patient is not a distraction to his own care and is not aggressive. Due to longstanding alcohol abuse, it is quite evident that the patient displays signs of Warnicke's encephalopathy. However does answer questions and is able to follow commands, is redirectable. 3. Atrial fibrillation with rapid ventricular response. Continue metoprolol to 100 mg twice daily. Continue Cardizem IR 120 mg 3 times daily with conversion to Cardizem CD 360 mg at time of discharge. 4. History of chronic systolic congestive heart failure. Monitor volume status. Direction of 1 L to 1.5 L/day. Daily weights by standing scale. Titrate diuretics as necessary. Continue Lasix to 40 mg IV twice daily Repeat chest x-ray this morning pending. 5. History of type 2 diabetes mellitus. Sugars controlled with metabolic laboratory checks. Does not require aggressive treatment. CODE STATUS: Full code. DVT prophylaxis: Systemic anticoagulation.
--- NOTE | 2021-02-07 09:17 | CR ---
Chest: Portable view of the chest was obtained. Comparison: Prior chest x-ray of 02/03/21 and 02/02/21. Mild increased density is seen within the right upper chest which appears similar to most recent study. Lung markings are mildly increased which are stable. Other parenchymal change within the left base shows improvement from prior study but has not yet resolved. No definite acute parenchymal change is seen from prior chest x-ray. Heart size and mediastinum are within normal limits. Hiatal hernia is noted. No acute osseous abnormality is appreciated. Impression: 1. Improved left lower lobe density as compared to prior chest x-ray. 2. Other portions of the chest are stable as described above. No acute abnormality is appreciated. Diagnostic code #2
[2021-02-07] MEDS: Diltiazem IR 30 MG Tab PO SCH (18:26)
[2021-02-07] MEDS: atorvaSTATin 40 MG Tab PO SCH (21:16)
[2021-02-07] MEDS: Gabapentin 600 MG Tab PO SCH (21:17)
[2021-02-07] MEDS: Metoprolol Tartrate 25 MG Tab PO SCH (21:20)
[2021-02-08] MEDS: Diltiazem IR 30 MG Tab PO SCH ×2 (03:39→12:05)
[2021-02-08] MEDS: Ampicillin/Sulbactam Na 3 GM in Sodium Chloride 0.9% 100 ML IV SCH (03:40)
[2021-02-08] MEDS: Furosemide 40 MG/4 ML VIAL IVPUSH SCH ×2 (06:35→14:11)
[2021-02-08] MEDS: Pantoprazole 40 MG Tab.CR PO SCH (06:36)
--- NOTE | 2021-02-08 07:33 | PCM.PN ---
<Mukul Odonnell - Last Filed: 02/08/21 12:16> - General Info Date of Service: 02/08/21 Admission Dx/Problem (Free Text): Atrial fibrillation with RVR. Functional Status: Reports: Pain Controlled, Tolerating Diet, Ambulating, Urinating, Incentive Spirometry. Denies: New Symptoms - Review of Systems General: Reports: Weakness. Denies: Fever, Fatigue, Malaise, Chills HEENT: Reports: No Symptoms. Denies: Headaches, Sore Throat Pulmonary: Reports: Shortness of Breath. Denies: Cough, Sputum, Wheezing Cardiovascular: Reports: No Symptoms, Dyspnea on Exertion, Edema. Denies: Chest Pain, Palpitations Gastrointestinal: Reports: No Symptoms. Denies: Abdominal Pain, Constipation, Diarrhea, Nausea, Vomiting Genitourinary: Reports: No Symptoms Musculoskeletal: Reports: No Symptoms. Denies: Neck Pain Skin: Reports: No Symptoms. Denies: Cyanosis Neurological: Reports: Pre-Existing Deficit, Difficulty Walking, Gait Disturbance. Denies: Dizziness, Headache, Numbness, Syncope, Tingling Psychiatric: Reports: No Symptoms - Patient Data Vitals - Most Recent: Last Vital Signs Temp 98.2 F 02/08/21 03:38 Pulse 104 H 02/08/21 03:38 Resp 14 02/08/21 03:38 BP 105/74 02/08/21 03:38 Pulse Ox 92 L 02/08/21 03:38 Weight - Most Recent: 249 lb 3.2 oz I&O - Last 24 Hours: Intake & Output 02/07/21 02/08/21 02/08/21 22:59 06:59 14:59 Intake Total 1140 400 Output Total 650 400 Balance 490 0 Lab Results Last 24 Hours: Laboratory Results - last 24 hr 02/07/21 02/08/21 Range/Units 16:08 06:20 Sodium 142 (136-145) mEq/L Potassium 4.1 3.8 (3.5-5.1) mEq/L Chloride 106 (98-107) mEq/L Carbon Dioxide 29 (21-32) mEq/L Anion Gap 10.8 (5-15) BUN 5 L (7-18) mg/dL Creatinine 0.8 (0.7-1.3) mg/dL Est Cr Clr Drug Dosing 93.81 mL/min Estimated GFR (MDRD) > 60 (>60) mL/min BUN/Creatinine Ratio 6.3 L (14-18) Glucose 90 (70-99) mg/dL Calcium 8.4 L (8.5-10.1) mg/dL Nelson Results Last 24 Hours: Microbiology 01/31/21 08:25 Aerobic Blood Culture - Final Blood - Venous - Lab Draw NO GROWTH AFTER 7 DAYS Anaerobic Blood Culture - Final NO GROWTH AFTER 7 DAYS 01/31/21 07:55 Aerobic Blood Culture - Final Blood - Venous NO GROWTH AFTER 7 DAYS Anaerobic Blood Culture - Final NO GROWTH AFTER 7 DAYS Med Orders - Current: Current Medications Acetaminophen (Acetaminophen 325 Mg Tab) 650 mg PO Q4H PRN PRN Reason: Pain (Mild 1-3)/fever Last Admin: 02/07/21 03:55 Dose: 650 mg Documented by: Atorvastatin Calcium (Atorvastatin 40 Mg Tab) 40 mg PO BEDTIME [facility] Last Admin: 02/07/21 21:16 Dose: 40 mg Documented by: Cholecalciferol (Cholecalciferol (Vitamin D3) 5,000 Unit Cap) 5,000 unit PO DAILY [facility] Last Admin: 02/07/21 08:17 Dose: 5,000 unit Documented by: Diltiazem HCl (Diltiazem Ir 30 Mg Tab) 120 mg PO Q8H [facility] Last Admin: 02/08/21 03:39 Dose: 120 mg Documented by: Furosemide (Furosemide 40 Mg/4 Ml Vial) 40 mg IVPUSH BIDDIURETIC [facility] Last Admin: 02/08/21 06:35 Dose: 40 mg Documented by: Gabapentin (Gabapentin 600 Mg Tab) 600 mg PO BEDTIME [facility] Last Admin: 02/07/21 21:17 Dose: 600 mg Documented by: Hydromorphone HCl (Hydromorphone 0.5 Mg/0.5 Ml Syringe) 0.5 mg IVPUSH Q1H PRN PRN Reason: Pain (moderate 4-6) Last Admin: 02/06/21 06:06 Dose: 0.5 mg Documented by: Magnesium Oxide (Magnesium Oxide 400 Mg Tab) 400 mg PO BID [facility] Last Admin: 02/07/21 21:17 Dose: 400 mg Documented by: Metoprolol Tartrate (Metoprolol Tartrate 25 Mg Tab) 75 mg PO Q12HR [facility] Last Admin: 02/07/21 21:20 Dose: 75 mg Documented by: Ondansetron HCl (Ondansetron 4 Mg/2 Ml Sdv) 4 mg IV Q4H PRN PRN Reason: Nausea/Vomiting Oxycodone HCl (Oxycodone 5 Mg Tab) 5 mg PO Q4H PRN PRN Reason: Pain (moderate 4-6) Last Admin: 02/05/21 12:15 Dose: 5 mg Documented by: Pantoprazole Sodium (Pantoprazole 40 Mg Tab.Cr) 40 mg PO ACBREAKFAST [facility] Last Admin: 02/08/21 06:36 Dose: 40 mg Documented by: Rivaroxaban (Rivaroxaban 10 Mg Tab) 20 mg PO DAILY [facility] Last Admin: 02/07/21 08:16 Dose: 20 mg Documented by: Sodium Chloride (Sodium Chloride 0.9% 10 Ml Syringe) 10 ml FLUSH ASDIRECTED PRN PRN Reason: Keep Vein Open Last Admin: 01/30/21 10:32 Dose: 10 ml Documented by: Trazodone HCl (Trazodone 50 Mg Tab) 50 mg PO BEDTIME PRN PRN Reason: Sleep Last Admin: 02/06/21 21:30 Dose: 50 mg Documented by: Discontinued Medications Amoxicillin/Clavulanate Potassium (Amoxicillin/Clavulanate K 500-125 Mg Tab) 1 tab PO Q8H [facility] Last Admin: 02/04/21 06:20 Dose: 1 tab Documented by: Chlordiazepoxide HCl (Chlordiazepoxide 25 Mg Cap) 50 mg PO BID [facility] Last Admin: 02/04/21 09:42 Dose: Not Given Documented by: Chlordiazepoxide HCl (Chlordiazepoxide 25 Mg Cap) 25 mg PO BID [facility] Last Admin: 02/02/21 20:41 Dose: Not Given Documented by: Cholecalciferol (Cholecalciferol (Vitamin D3) 5,000 Unit Tab) 5,000 unit PO DAILY [facility] Last Admin: 01/30/21 14:14 Dose: Not Given Documented by: Diltiazem HCl (Diltiazem 50 Mg/10 Ml Sdv) 10 mg IVPUSH ONETIME ONE Stop: 01/30/21 10:01 Last Admin: 01/30/21 10:07 Dose: 10 mg Documented by: Diltiazem HCl (Diltiazem Ir 60 Mg Tab) 120 mg PO TID [facility] Last Admin: 02/01/21 11:40 Dose: 120 mg Documented by: Diltiazem HCl (Diltiazem Ir 60 Mg Tab) 120 mg PO Q8H [facility] Last Admin: 02/07/21 11:04 Dose: 120 mg Documented by: Diltiazem HCl (Diltiazem 50 Mg/10 Ml Sdv) 10 mg IVPUSH ONETIME ONE Stop: 02/02/21 06:00 Last Admin: 02/02/21 06:12 Dose: 10 mg Documented by: Folic Acid (Folic Acid 1 Mg Tab) 1 mg PO DAILY [facility] Stop: 02/01/21 09:01 Last Admin: 02/01/21 08:21 Dose: 1 mg Documented by: Furosemide (Furosemide 20 Mg/2 Ml Vial) 20 mg IVPUSH NOW ONE Stop: 02/01/21 20:21 Last Admin: 02/01/21 20:35 Dose: 20 mg Documented by: Furosemide (Furosemide 20 Mg/2 Ml Vial) 20 mg IVPUSH NOW ONE Stop: 02/02/21 11:31 Last Admin: 02/02/21 11:33 Dose: 20 mg Documented by: Furosemide (Furosemide 20 Mg Tab) 20 mg PO DAILY [facility] Last Admin: 02/03/21 08:01 Dose: 20 mg Documented by: Furosemide (Furosemide 40 Mg/4 Ml Vial) 40 mg IVPUSH NOW ONE Stop: 02/03/21 22:46 Last Admin: 02/03/21 22:52 Dose: 40 mg Documented by: Furosemide (Furosemide 40 Mg/4 Ml Vial) 40 mg IVPUSH DAILY [facility] Last Admin: 02/04/21 09:34 Dose: 40 mg Documented by: Furosemide (Furosemide 40 Mg/4 Ml Vial) 40 mg IVPUSH BID [facility] Stop: 02/05/21 23:52 Last Admin: 02/05/21 21:38 Dose: 40 mg Documented by: Haloperidol (Haloperidol 1 Mg Tab) 2 mg PO ONETIME ONE Stop: 02/01/21 09:04 Last Admin: 02/01/21 17:12 Dose: Not Given Documented by: Haloperidol (Haloperidol 1 Mg Tab) 2 mg PO ONETIME ONE Stop: 02/01/21 19:09 Last Admin: 02/02/21 05:02 Dose: Not Given Documented by: Hydromorphone HCl (Hydromorphone 1 Mg/Ml Syringe) 1 mg IVPUSH ONETIME ONE Stop: 01/30/21 10:01 Last Admin: 01/30/21 10:07 Dose: 1 mg Documented by: Hydromorphone HCl (Hydromorphone 0.5 Mg/0.5 Ml Syringe) 0.5 mg IVPUSH ONETIME ONE Stop: 01/30/21 12:01 Last Admin: 01/30/21 12:07 Dose: 0.5 mg Documented by: Diltiazem HCl 100 mg/ Sodium (Chloride) 100 mls @ 10 mls/hr IV TITRATE DI[facility]; Protocol Last Titration: 02/03/21 11:20 Dose: 0 mg/hr, 0 mls/hr Documented by: Sodium Chloride (Normal Saline) 1,000 mls @ 125 mls/hr IV ASDIRECTED DIAMANTE Last Infusion: 01/30/21 12:08 Dose: 125 mls/hr Documented by: Sodium Chloride (Normal Saline) 1,000 mls @ 999 mls/hr IV ONETIME ONE Stop: 01/30/21 12:00 Last Admin: 01/30/21 11:00 Dose: 999 mls/hr Documented by: Magnesium Sulfate 2 gm/ Premix 50 mls @ 25 mls/hr IV ONETIME ONE Stop: 01/30/21 15:28 Last Admin: 01/30/21 14:02 Dose: 25 mls/hr Documented by: Lactated Ringer's (Ringers, Lactated) 1,000 mls @ 100 mls/hr IV ASDIRECTED DIAMANTE Last Infusion: 01/31/21 17:35 Dose: 75 mls/hr Documented by: Lactated Ringer's (Ringers, Lactated) 1,000 mls @ 1,000 mls/hr IV .BOLUS ONE Stop: 01/31/21 09:44 Last Admin: 01/31/21 08:54 Dose: 1,000 mls/hr Documented by: Lactated Ringer's (Ringers, Lactated) 1,000 mls @ 1,000 mls/hr IV .BOLUS ONE Stop: 01/31/21 10:44 Last Admin: 01/31/21 10:10 Dose: 1,000 mls/hr Documented by: Piperacillin Sod/Tazobactam (Sod 4.5 gm/ Sodium Chloride) 100 mls @ 25 mls/hr IV Q8H [facility] Last Admin: 02/02/21 03:32 Dose: 25 mls/hr Documented by: Piperacillin Sod/Tazobactam (Sod 4.5 gm/ Sodium Chloride) 100 mls @ 200 mls/hr IV ONETIME ONE Stop: 01/31/21 12:29 Last Admin: 01/31/21 11:58 Dose: 200 mls/hr Documented by: Vancomycin HCl 2 gm/ Sodium (Chloride) 500 mls @ 250 mls/hr IV ONETIME ONE Stop: 01/31/21 13:59 Last Admin: 01/31/21 12:38 Dose: 250 mls/hr Documented by: Vancomycin HCl 1.75 gm/ Sodium (Chloride) 500 mls @ 250 mls/hr IV Q12H [facility] Stop: 02/02/21 14:00 Last Admin: 02/02/21 11:33 Dose: 250 mls/hr Documented by: Lactated Ringer's (Ringers, Lactated) 1,000 mls @ 75 mls/hr IV ASDIRECTED [facility] Last Infusion: 02/01/21 09:13 Dose: 20 mls/hr Documented by: Lactated Ringer's (Ringers, Lactated) 1,000 mls @ 20 mls/hr IV ASDIRECTED [facility] Last Admin: 02/01/21 14:00 Dose: 20 mls/hr Documented by: Magnesium Sulfate/Dextrose 1 (gm/ Premix) 100 mls @ 100 mls/hr IV ONETIME ONE Stop: 02/01/21 10:29 Last Admin: 02/01/21 09:18 Dose: 100 mls/hr Documented by: Magnesium Sulfate 2 gm/ Premix 50 mls @ 25 mls/hr IV ONETIME ONE Stop: 02/02/21 10:29 Last Admin: 02/02/21 08:17 Dose: 25 mls/hr Documented by: Magnesium Sulfate 2 gm/ Premix 50 mls @ 25 mls/hr IV ONETIME ONE Stop: 02/04/21 11:29 Last Admin: 02/04/21 09:34 Dose: 25 mls/hr Documented by: Potassium Chloride 10 meq/ (Premix) 100 mls @ 100 mls/hr IV Q1H [facility] Stop: 02/04/21 15:59 Last Admin: 02/04/21 14:42 Dose: 100 mls/hr Documented by: Ampicillin Sodium/Sulbactam (Sodium 3 gm/ Sodium Chloride) 100 mls @ 200 mls/hr IV Q6H [facility] Last Admin: 02/08/21 03:40 Dose: 200 mls/hr Documented by: Insulin Human Lispro (Insulin Lispro 100 Unit/Ml 10 Ml Vial) 0 unit SUBCUT QIDACANDBED [facility]; Protocol Last Admin: 02/04/21 17:21 Dose: Not Given Documented by: Lorazepam (Lorazepam 2 Mg/Ml Sdv) 0 mg IV ASDIRECTED [facility]; Protocol Last Admin: 02/03/21 17:52 Dose: 1 mg Documented by: Lorazepam (Lorazepam 1 Mg Tab) 1 mg PO Q1H PRN PRN Reason: Withdrawal Symptoms Last Admin: 02/01/21 11:30 Dose: 1 mg Documented by: Losartan Potassium (Losartan 25 Mg Tab) 25 mg PO DAILY [facility] Last Admin: 02/06/21 08:06 Dose: 25 mg Documented by: Metoprolol Succinate (Metoprolol Succinate 50 Mg Tab.Er) 50 mg PO DAILY [facility] Last Admin: 01/31/21 07:24 Dose: 50 mg Documented by: Metoprolol Tartrate (Metoprolol Tartrate 50 Mg Tab) 50 mg PO Q12HR [facility] Last Admin: 02/02/21 20:40 Dose: 50 mg Documented by: Metoprolol Tartrate (Metoprolol Tartrate 50 Mg Tab) 75 mg PO Q12HR [facility] Last Admin: 02/03/21 21:21 Dose: 75 mg Documented by: Metoprolol Tartrate (Metoprolol Tartrate 50 Mg Tab) 100 mg PO Q12HR [facility] Last Admin: 02/07/21 08:15 Dose: 100 mg Documented by: Multivitamins/Minerals/Vitamin C (Multivitamin Tab) 1 tab PO ONETIME ONE Stop: 01/30/21 13:38 Last Admin: 01/30/21 14:02 Dose: 1 tab Documented by: Potassium Chloride (Potassium Chloride 20 Meq Tab.Er) 40 meq PO ONETIME ONE Stop: 02/03/21 08:38 Last Admin: 02/03/21 08:53 Dose: 40 meq Documented by: Potassium Chloride (Potassium Chloride 20 Meq Tab.Er) 40 meq PO ONETIME ONE Stop: 02/07/21 08:01 Potassium Chloride (Potassium Chloride 20 Meq Tab.Er) 40 meq PO ONETIME ONE Stop: 02/07/21 09:01 Last Admin: 02/07/21 08:16 Dose: 40 meq Documented by: Potassium Chloride (Potassium Chloride 20 Meq Tab.Er) 40 meq PO ONETIME ONE Stop: 02/07/21 12:01 Last Admin: 02/07/21 11:05 Dose: 40 meq Documented by: Potassium Chloride (Potassium Chloride 20 Meq Tab.Er) 40 meq PO ONETIME ONE Stop: 02/07/21 07:30 Last Admin: 02/07/21 07:36 Dose: 40 meq Documented by: Thiamine HCl (Thiamine 100 Mg Tab) 100 mg PO DAILY [facility] Last Admin: 02/04/21 09:35 Dose: 100 mg Documented by: Vancomycin HCl (Pharmacy To Dose - Vancomycin) 1 dose .XX ASDIRECTED PRN PRN Reason: RX TO DOSE VANCO - Exam Quality Assessment: Supplemental Oxygen (2L), DVT Prophylaxis. No: Urine Catheter General: Alert, Oriented (mostly ), Cooperative, No Acute Distress HEENT: Pupils Equal, Pupils Reactive, Mucous Membr. Moist/[place] Neck: Supple, Trachea Midline Lungs: Clear to Auscultation, Normal Respiratory Effort, Decreased Breath Sounds Cardiovascular: Regular Rate, Regular Rhythm GI/Abdominal Exam: Normal Bowel Sounds, Soft, Non-Tender, No Distention (Male) Exam: Deferred Back Exam: Normal Inspection, Decreased Range of Motion Extremities: Normal Inspection, Normal Range of Motion, Non-Tender, Pedal Edema Skin: Warm, Dry, Intact Neurological: No New Focal Deficit Psy/Mental Status: Alert, Normal Affect, Normal Mood - Patient Data Lab Results Last 24 hrs: Laboratory Results - last 24 hr 02/07/21 02/08/21 Range/Units 16:08 06:20 Sodium 142 (136-145) mEq/L Potassium 4.1 3.8 (3.5-5.1) mEq/L Chloride 106 (98-107) mEq/L Carbon Dioxide 29 (21-32) mEq/L Anion Gap 10.8 (5-15) BUN 5 L (7-18) mg/dL Creatinine 0.8 (0.7-1.3) mg/dL Est Cr Clr Drug Dosing 93.81 mL/min Estimated GFR (MDRD) > 60 (>60) mL/min BUN/Creatinine Ratio 6.3 L (14-18) Glucose 90 (70-99) mg/dL Calcium 8.4 L (8.5-10.1) mg/dL Result Diagrams: 02/07/21 06:07 02/08/21 06:20 Nelson Results Last 24 hrs: Microbiology 01/31/21 08:25 Aerobic Blood Culture - Final Blood - Venous - Lab Draw NO GROWTH AFTER 7 DAYS Anaerobic Blood Culture - Final NO GROWTH AFTER 7 DAYS 01/31/21 07:55 Aerobic Blood Culture - Final Blood - Venous NO GROWTH AFTER 7 DAYS Anaerobic Blood Culture - Final NO GROWTH AFTER 7 DAYS Sepsis Event Note - Evaluation Sepsis Screening Result: No Definite Risk - Focused Exam Vital Signs: Vital Signs Temp Temp Pulse Resp BP BP Pulse Ox 02/08/21 03:38 98.2 F 104 H 14 105/74 92 L 02/08/21 00:00 98.8 F 14 102/64 94 L 02/07/21 21:22 98.1 F 90 16 106/62 95 02/07/21 21:20 90 106/62 - Problem List & Annotations (1) Chronic atrial fibrillation with RVR SNOMED Code(s): 445623174, 598052691544971 Code(s): I48.20 - CHRONIC ATRIAL FIBRILLATION, UNSPECIFIED Status: Resolved Priority: Medium Current Visit: Yes (2) Alcoholism SNOMED Code(s): 4638100 Code(s): F10.20 - ALCOHOL DEPENDENCE, UNCOMPLICATED Status: Chronic Priority: High Current Visit: No (3) Acute respiratory failure with hypoxemia SNOMED Code(s): 330747271 Code(s): J96.01 - ACUTE RESPIRATORY FAILURE WITH HYPOXIA Status: Acute Priority: High Current Visit: Yes (4) Aspiration pneumonia SNOMED Code(s): 318580117 Code(s): J69.0 - PNEUMONITIS DUE TO INHALATION OF FOOD AND VOMIT Status: Resolved Priority: High Current Visit: Yes Qualifiers: Aspiration pneumonia type: unspecified Laterality: unspecified laterality Lung location: unspecified part of lung Qualified Code(s): J69.0 - Pneumonitis due to inhalation of food and vomit (5) Alcohol withdrawal SNOMED Code(s): 385414772 Code(s): F10.239 - ALCOHOL DEPENDENCE WITH WITHDRAWAL, UNSPECIFIED Status: Resolved Priority: High Current Visit: Yes Qualifiers: Complication of substance-induced condition: with unspecified complication Qualified Code(s): F10.239 - Alcohol dependence with withdrawal, unspecified (6) CHF exacerbation SNOMED Code(s): 268912431, 33058816730274 Code(s): I50.9 - HEART FAILURE, UNSPECIFIED Status: Acute Priority: High Current Visit: Yes Qualifiers: Heart failure type: unspecified Qualified Code(s): I50.9 - Heart failure, unspecified (7) History of MRSA infection SNOMED Code(s): 795523989, 352366059 Code(s): Z86.14 - PERSONAL HISTORY OF METHICILLIN RESIS STAPH INFECTION Status: Chronic Priority: Low Current Visit: No (8) History of hepatitis C SNOMED Code(s): 07333235382342, [id number] Code(s): Z86.19 - PERSONAL HISTORY OF OTHER INFECTIOUS AND PARASITIC DISEASES Status: Chronic Priority: Low Current Visit: No (9) Type 2 diabetes mellitus SNOMED Code(s): 90293478 Code(s): E11.9 - TYPE 2 DIABETES MELLITUS WITHOUT COMPLICATIONS Status: [facility] Priority: Medium Current Visit: No Qualifiers: Diabetes mellitus mcc insulin use: without mcc use Diabetes mellitus complication status: with neurologic complications (10) Wernicke encephalopathy SNOMED Code(s): 42875133 Code(s): E51.2 - WERNICKE'S ENCEPHALOPATHY Status: Chronic Priority: High Current Visit: Yes (11) Atrial fibrillation SNOMED Code(s): 12703768 Code(s): I48.91 - UNSPECIFIED ATRIAL FIBRILLATION Status: Chronic Priority: Medium Current Visit: No Qualifiers: Atrial fibrillation type: unspecified Qualified Code(s): I48.91 - Unspecified atrial fibrillation - Problem List Review Problem List Initiated/Reviewed/Updated: Yes - Assessment Assessment:: This is a 60-year-old male who presented to our ED on 01-30-2021 with right leg pain and swelling. In the ED he was noted to be in A. fib with RVR. He does have a history of chronic A. fib and is on Xarelto. He is concerned that his right leg is swollen and that he may have a blood clot. Right lower extremity duplex ultrasound is obtained showing no findings concerning for DVT. Twelve- lead EKG in ED showed A. fib with a rate of 151 and he was given IV push Cardizem followed by a Cardizem drip. He does carry history of chronic alcohol abuse and he was started on CIWA protocol. At his worst CIWA score was 7. He has since been completely detoxed and all subsequent medications for this were discontinued. Patient does have symptoms concerning for Warnicke's encephalopathy. He does have difficulty with ambulation. He has been working with PT and OT who are recommending SNF placement. Case management social work have been working on this. Patient was also treated for aspiration pneumonia. He has completed 10 days worth of treatment and antibiotics will be stopped. His potassium has been low and has been supplemented. Unfortunately throughout treatment for his pneumonia and withdrawal symptoms patient did become somewhat fluid overloaded. We are working on diuresing this now. Patient remains on 2 L of oxygen. At his heaviest he was 257 pounds on 02-06-2021 and today is 249. Of note patient is not on any diuretics at baseline. We will continue to diurese and attempt to wean him off oxygen. Plan will be to discharge to SNF once medically stable. Anticipate discharge in 24 to 48 hours. - Plan Plan:: 1. Acute hypoxic respiratory failure in the setting of aspiration pneumonia. Continue supplemental oxygen, wean as tolerated. Respiratory therapy consult As needed bronchodilators. Continue antibiotics for full course, reverted back to IV Unasyn 02/04. Completed a 10-day course. Incentive spirometry encouraged. Daily ambulation saturation trials. History of MRSA 2. Acute alcohol withdrawal. - Resolved CIWA protocol now discontinued. All sedation has been held. No active signs of withdrawal. Patient is not a distraction to his own care and is not aggressive. Due to longstanding alcohol abuse, it is quite evident that the patient displays signs of Warnicke's encephalopathy. However does answer questions and is able to follow commands, is redirectable. 3. Atrial fibrillation with rapid ventricular response. - rate controlled Continue metoprolol to 100 mg twice daily. Continue Cardizem IR 120 mg 3 times daily with conversion to Cardizem CD 360 mg at time of discharge. 4. History of chronic systolic congestive heart failure. Monitor volume status. Direction of 1 L to 1.5 L/day. Daily weights by standing scale. Titrate diuretics as necessary. Continue Lasix to 40 mg IV twice daily 5. History of type 2 diabetes mellitus. Sugars controlled with metabolic l aboratory checks. Does not require aggressive treatment. 6. History of Hepatitis C Nothing acute required CODE STATUS: Full code. DVT prophylaxis: Systemic anticoagulation. <Jeanette,Can Teddy Jr - Last Filed: 02/08/21 16:19> - Patient Data Vitals - Most Recent: Last Vital Signs Temp 98.1 F 02/08/21 11:58 Pulse 109 H 02/08/21 11:58 Resp 20 02/08/21 11:58 BP 99/68 02/08/21 11:58 Pulse Ox 93 L 02/08/21 11:58 I&O - Last 24 Hours: Intake & Output 02/08/21 02/08/21 02/08/21 06:59 14:59 22:59 Intake Total 400 540 Output Total 400 Balance 0 540 Lab Results Last 24 Hours: Laboratory Results - last 24 hr 02/07/21 02/08/21 Range/Units 16:08 06:20 Sodium 142 (136-145) mEq/L Potassium 4.1 3.8 (3.5-5.1) mEq/L Chloride 106 (98-107) mEq/L Carbon Dioxide 29 (21-32) mEq/L Anion Gap 10.8 (5-15) BUN 5 L (7-18) mg/dL Creatinine 0.8 (0.7-1.3) mg/dL Est Cr Clr Drug Dosing 93.81 mL/min Estimated GFR (MDRD) > 60 (>60) mL/min BUN/Creatinine Ratio 6.3 L (14-18) Glucose 90 (70-99) mg/dL Calcium 8.4 L (8.5-10.1) mg/dL Med Orders - Current: Current Medications Acetaminophen (Acetaminophen 325 Mg Tab) 650 mg PO Q4H PRN PRN Reason: Pain (Mild 1-3)/fever Last Admin: 02/07/21 03:55 Dose: 650 mg Documented by: Atorvastatin Calcium (Atorvastatin 40 Mg Tab) 40 mg PO BEDTIME [facility] Last Admin: 02/07/21 21:16 Dose: 40 mg Documented by: Cholecalciferol (Cholecalciferol (Vitamin D3) 5,000 Unit Cap) 5,000 unit PO DAILY [facility] Last Admin: 02/08/21 08:10 Dose: 5,000 unit Documented by: Diltiazem HCl (Diltiazem Ir 60 Mg Tab) 120 mg PO Q8H [facility] Furosemide (Furosemide 40 Mg/4 Ml Vial) 40 mg IVPUSH BIDDIURETIC [facility] Last Admin: 02/08/21 14:11 Dose: 40 mg Documented by: Gabapentin (Gabapentin 600 Mg Tab) 600 mg PO BEDTIME [facility] Last Admin: 02/07/21 21:17 Dose: 600 mg Documented by: Hydromorphone HCl (Hydromorphone 0.5 Mg/0.5 Ml Syringe) 0.5 mg IVPUSH Q1H PRN PRN Reason: Pain (moderate 4-6) Last Admin: 02/06/21 06:06 Dose: 0.5 mg Documented by: Magnesium Oxide (Magnesium Oxide 400 Mg Tab) 400 mg PO BID [facility] Last Admin: 02/08/21 08:10 Dose: 400 mg Documented by: Melatonin (Melatonin 3 Mg Tab) 6 mg PO BEDTIME PRN PRN Reason: Sleep Metoprolol Tartrate (Metoprolol Tartrate 25 Mg Tab) 75 mg PO Q12HR [facility] Last Admin: 02/08/21 08:10 Dose: 75 mg Documented by: Ondansetron HCl (Ondansetron 4 Mg/2 Ml Sdv) 4 mg IV Q4H PRN PRN Reason: Nausea/Vomiting Oxycodone HCl (Oxycodone 5 Mg Tab) 5 mg PO Q4H PRN PRN Reason: Pain (moderate 4-6) Last Admin: 02/05/21 12:15 Dose: 5 mg Documented by: Pantoprazole Sodium (Pantoprazole 40 Mg Tab.Cr) 40 mg PO ACBREAKFAST [facility] Last Admin: 02/08/21 06:36 Dose: 40 mg Documented by: Potassium Chloride (Potassium Chloride 20 Meq Tab.Er) 40 meq PO 1700 [facility] Last Admin: 02/08/21 16:07 Dose: 40 meq Documented by: Rivaroxaban (Rivaroxaban 10 Mg Tab) 20 mg PO DAILY [facility] Last Admin: 02/08/21 08:09 Dose: 20 mg Documented by: Sodium Chloride (Sodium Chloride 0.9% 10 Ml Syringe) 10 ml FLUSH ASDIRECTED PRN PRN Reason: Keep Vein Open Last Admin: 01/30/21 10:32 Dose: 10 ml Documented by: Discontinued Medications Amoxicillin/Clavulanate Potassium (Amoxicillin/Clavulanate K 500-125 Mg Tab) 1 tab PO Q8H [facility] Last Admin: 02/04/21 06:20 Dose: 1 tab Documented by: Chlordiazepoxide HCl (Chlordiazepoxide 25 Mg Cap) 50 mg PO BID [facility] Last Admin: 02/04/21 09:42 Dose: Not Given Documented by: Chlordiazepoxide HCl (Chlordiazepoxide 25 Mg Cap) 25 mg PO BID [facility] Last Admin: 02/02/21 20:41 Dose: Not Given Documented by: Cholecalciferol (Cholecalciferol (Vitamin D3) 5,000 Unit Tab) 5,000 unit PO DAILY [facility] Last Admin: 01/30/21 14:14 Dose: Not Given Documented by: Diltiazem HCl (Diltiazem 50 Mg/10 Ml Sdv) 10 mg IVPUSH ONETIME ONE Stop: 01/30/21 10:01 Last Admin: 01/30/21 10:07 Dose: 10 mg Documented by: Diltiazem HCl (Diltiazem Ir 60 Mg Tab) 120 mg PO TID [facility] Last Admin: 02/01/21 11:40 Dose: 120 mg Documented by: Diltiazem HCl (Diltiazem Ir 60 Mg Tab) 120 mg PO Q8H [facility] Last Admin: 02/07/21 11:04 Dose: 120 mg Documented by: Diltiazem HCl (Diltiazem 50 Mg/10 Ml Sdv) 10 mg IVPUSH ONETIME ONE Stop: 02/02/21 06:00 Last Admin: 02/02/21 06:12 Dose: 10 mg Documented by: Diltiazem HCl (Diltiazem Ir 30 Mg Tab) 120 mg PO Q8H [facility] Last Admin: 02/08/21 12:05 Dose: 120 mg Documented by: Folic Acid (Folic Acid 1 Mg Tab) 1 mg PO DAILY [facility] Stop: 02/01/21 09:01 Last Admin: 02/01/21 08:21 Dose: 1 mg Documented by: Furosemide (Furosemide 20 Mg/2 Ml Vial) 20 mg IVPUSH NOW ONE Stop: 02/01/21 20:21 Last Admin: 02/01/21 20:35 Dose: 20 mg Documented by: Furosemide (Furosemide 20 Mg/2 Ml Vial) 20 mg IVPUSH NOW ONE Stop: 02/02/21 11:31 Last Admin: 02/02/21 11:33 Dose: 20 mg Documented by: Furosemide (Furosemide 20 Mg Tab) 20 mg PO DAILY [facility] Last Admin: 02/03/21 08:01 Dose: 20 mg Documented by: Furosemide (Furosemide 40 Mg/4 Ml Vial) 40 mg IVPUSH NOW ONE Stop: 02/03/21 22:46 Last Admin: 02/03/21 22:52 Dose: 40 mg Documented by: Furosemide (Furosemide 40 Mg/4 Ml Vial) 40 mg IVPUSH DAILY [facility] Last Admin: 02/04/21 09:34 Dose: 40 mg Documented by: Furosemide (Furosemide 40 Mg/4 Ml Vial) 40 mg IVPUSH BID DIAMANTE Stop: 02/05/21 23:52 Last Admin: 02/05/21 21:38 Dose: 40 mg Documented by: Haloperidol (Haloperidol 1 Mg Tab) 2 mg PO ONETIME ONE Stop: 02/01/21 09:04 Last Admin: 02/01/21 17:12 Dose: Not Given Documented by: Haloperidol (Haloperidol 1 Mg Tab) 2 mg PO ONETIME ONE Stop: 02/01/21 19:09 Last Admin: 02/02/21 05:02 Dose: Not Given Documented by: Hydromorphone HCl (Hydromorphone 1 Mg/Ml Syringe) 1 mg IVPUSH ONETIME ONE Stop: 01/30/21 10:01 Last Admin: 01/30/21 10:07 Dose: 1 mg Documented by: Hydromorphone HCl (Hydromorphone 0.5 Mg/0.5 Ml Syringe) 0.5 mg IVPUSH ONETIME ONE Stop: 01/30/21 12:01 Last Admin: 01/30/21 12:07 Dose: 0.5 mg Documented by: Diltiazem HCl 100 mg/ Sodium (Chloride) 100 mls @ 10 mls/hr IV TITRATE DIAMANTE; Protocol Last Titration: 02/03/21 11:20 Dose: 0 mg/hr, 0 mls/hr Documented by: Sodium Chloride (Normal Saline) 1,000 mls @ 125 mls/hr IV ASDIRECTED DIAMANTE Last Infusion: 01/30/21 12:08 Dose: 125 mls/hr Documented by: Sodium Chloride (Normal Saline) 1,000 mls @ 999 mls/hr IV ONETIME ONE Stop: 01/30/21 12:00 Last Admin: 01/30/21 11:00 Dose: 999 mls/hr Documented by: Magnesium Sulfate 2 gm/ Premix 50 mls @ 25 mls/hr IV ONETIME ONE Stop: 01/30/21 15:28 Last Admin: 01/30/21 14:02 Dose: 25 mls/hr Documented by: Lactated Ringer's (Ringers, Lactated) 1,000 mls @ 100 mls/hr IV ASDIRECTED [facility] Last Infusion: 01/31/21 17:35 Dose: 75 mls/hr Documented by: Lactated Ringer's (Ringers, Lactated) 1,000 mls @ 1,000 mls/hr IV .BOLUS ONE Stop: 01/31/21 09:44 Last Admin: 01/31/21 08:54 Dose: 1,000 mls/hr Documented by: Lactated Ringer's (Ringers, Lactated) 1,000 mls @ 1,000 mls/hr IV .BOLUS ONE Stop: 01/31/21 10:44 Last Admin: 01/31/21 10:10 Dose: 1,000 mls/hr Documented by: Piperacillin Sod/Tazobactam (Sod 4.5 gm/ Sodium Chloride) 100 mls @ 25 mls/hr IV Q8H [facility] Last Admin: 02/02/21 03:32 Dose: 25 mls/hr Documented by: Piperacillin Sod/Tazobactam (Sod 4.5 gm/ Sodium Chloride) 100 mls @ 200 mls/hr IV ONETIME ONE Stop: 01/31/21 12:29 Last Admin: 01/31/21 11:58 Dose: 200 mls/hr Documented by: Vancomycin HCl 2 gm/ Sodium (Chloride) 500 mls @ 250 mls/hr IV ONETIME ONE Stop: 01/31/21 13:59 Last Admin: 01/31/21 12:38 Dose: 250 mls/hr Documented by: Vancomycin HCl 1.75 gm/ Sodium (Chloride) 500 mls @ 250 mls/hr IV Q12H [facility] Stop: 02/02/21 14:00 Last Admin: 02/02/21 11:33 Dose: 250 mls/hr Documented by: Lactated Ringer's (Ringers, Lactated) 1,000 mls @ 75 mls/hr IV ASDIRECTED [facility] Last Infusion: 02/01/21 09:13 Dose: 20 mls/hr Documented by: Lactated Ringer's (Ringers, Lactated) 1,000 mls @ 20 mls/hr IV ASDIRECTED [facility] Last Admin: 02/01/21 14:00 Dose: 20 mls/hr Documented by: Magnesium Sulfate/Dextrose 1 (gm/ Premix) 100 mls @ 100 mls/hr IV ONETIME ONE Stop: 02/01/21 10:29 Last Admin: 02/01/21 09:18 Dose: 100 mls/hr Documented by: Magnesium Sulfate 2 gm/ Premix 50 mls @ 25 mls/hr IV ONETIME ONE Stop: 02/02/21 10:29 Last Admin: 02/02/21 08:17 Dose: 25 mls/hr Documented by: Magnesium Sulfate 2 gm/ Premix 50 mls @ 25 mls/hr IV ONETIME ONE Stop: 02/04/21 11:29 Last Admin: 02/04/21 09:34 Dose: 25 mls/hr Documented by: Potassium Chloride 10 meq/ (Premix) 100 mls @ 100 mls/hr IV Q1H [facility] Stop: 02/04/21 15:59 Last Admin: 02/04/21 14:42 Dose: 100 mls/hr Documented by: Ampicillin Sodium/Sulbactam (Sodium 3 gm/ Sodium Chloride) 100 mls @ 200 mls/hr IV Q6H [facility] Last Admin: 02/08/21 03:40 Dose: 200 mls/hr Documented by: Insulin Human Lispro (Insulin Lispro 100 Unit/Ml 10 Ml Vial) 0 unit SUBCUT QIDACANDBED [facility]; Protocol Last Admin: 02/04/21 17:21 Dose: Not Given Documented by: Lorazepam (Lorazepam 2 Mg/Ml Sdv) 0 mg IV ASDIRECTED [facility]; Protocol Last Admin: 02/03/21 17:52 Dose: 1 mg Documented by: Lorazepam (Lorazepam 1 Mg Tab) 1 mg PO Q1H PRN PRN Reason: Withdrawal Symptoms Last Admin: 02/01/21 11:30 Dose: 1 mg Documented by: Losartan Potassium (Losartan 25 Mg Tab) 25 mg PO DAILY [facility] Last Admin: 02/06/21 08:06 Dose: 25 mg Documented by: Metoprolol Succinate (Metoprolol Succinate 50 Mg Tab.Er) 50 mg PO DAILY [facility] Last Admin: 01/31/21 07:24 Dose: 50 mg Documented by: Metoprolol Tartrate (Metoprolol Tartrate 50 Mg Tab) 50 mg PO Q12HR [facility] Last Admin: 02/02/21 20:40 Dose: 50 mg Documented by: Metoprolol Tartrate (Metoprolol Tartrate 50 Mg Tab) 75 mg PO Q12HR [facility] Last Admin: 02/03/21 21:21 Dose: 75 mg Documented by: Metoprolol Tartrate (Metoprolol Tartrate 50 Mg Tab) 100 mg PO Q12HR [facility] Last Admin: 02/07/21 08:15 Dose: 100 mg Documented by: Multivitamins/Minerals/Vitamin C (Multivitamin Tab) 1 tab PO ONETIME ONE Stop: 01/30/21 13:38 Last Admin: 01/30/21 14:02 Dose: 1 tab Documented by: Potassium Chloride (Potassium Chloride 20 Meq Tab.Er) 40 meq PO ONETIME ONE Stop: 02/03/21 08:38 Last Admin: 02/03/21 08:53 Dose: 40 meq Documented by: Potassium Chloride (Potassium Chloride 20 Meq Tab.Er) 40 meq PO ONETIME ONE Stop: 02/07/21 08:01 Potassium Chloride (Potassium Chloride 20 Meq Tab.Er) 40 meq PO ONETIME ONE Stop: 02/07/21 09:01 Last Admin: 02/07/21 08:16 Dose: 40 meq Documented by: Potassium Chloride (Potassium Chloride 20 Meq Tab.Er) 40 meq PO ONETIME ONE Stop: 02/07/21 12:01 Last Admin: 02/07/21 11:05 Dose: 40 meq Documented by: Potassium Chloride (Potassium Chloride 20 Meq Tab.Er) 40 meq PO ONETIME ONE Stop: 02/07/21 07:30 Last Admin: 02/07/21 07:36 Dose: 40 meq Documented by: Thiamine HCl (Thiamine 100 Mg Tab) 100 mg PO DAILY [facility] Last Admin: 02/04/21 09:35 Dose: 100 mg Documented by: Trazodone HCl (Trazodone 50 Mg Tab) 50 mg PO BEDTIME PRN PRN Reason: Sleep Last Admin: 02/06/21 21:30 Dose: 50 mg Documented by: Vancomycin HCl (Pharmacy To Dose - Vancomycin) 1 dose .XX ASDIRECTED PRN PRN Reason: RX TO DOSE VANCO - Patient Data Lab Results Last 24 hrs: Laboratory Results - last 24 hr 02/07/21 02/08/21 Range/Units 16:08 06:20 Sodium 142 (136-145) mEq/L Potassium 4.1 3.8 (3.5-5.1) mEq/L Chloride 106 (98-107) mEq/L Carbon Dioxide 29 (21-32) mEq/L Anion Gap 10.8 (5-15) BUN 5 L (7-18) mg/dL Creatinine 0.8 (0.7-1.3) mg/dL Est Cr Clr Drug Dosing 93.81 mL/min Estimated GFR (MDRD) > 60 (>60) mL/min BUN/Creatinine Ratio 6.3 L (14-18) Glucose 90 (70-99) mg/dL Calcium 8.4 L (8.5-10.1) mg/dL Result Diagrams: 02/07/21 06:07 02/08/21 06:20 Sepsis Event Note - Focused Exam Vital Signs: Vital Signs Temp Pulse Resp BP Pulse Ox Pulse Ox 02/08/21 11:58 98.1 F 109 H 20 99/68 93 L 02/08/21 10:39 94 L 02/08/21 08:10 100 114/77 02/08/21 08:01 100 18 114/77 92 L - My Orders Last 24 Hours: My Active Orders 02/07/21 21:00 Metoprolol Tartrate [Lopressor] 75 mg PO Q12HR - Plan Plan:: Case discussed in full. Agree with evaluation, assessment and plan.
[2021-02-08] MEDS: Rivaroxaban 10 MG Tab PO SCH (08:09)
[2021-02-08] MEDS: Metoprolol Tartrate 25 MG Tab PO SCH ×2 (08:10→22:27)
[2021-02-08] MEDS: Magnesium Oxide 400 MG Tab PO SCH ×2 (08:10→21:09)
[2021-02-08] MEDS: Cholecalciferol (Vitamin D3) 5,000 UNIT Cap PO SCH (08:10)
[2021-02-08] MEDS: Potassium Chloride 20 MEQ Tab.ER PO SCH (16:07)
[2021-02-08] MEDS: Diltiazem IR 60 MG Tab PO SCH (18:08)
[2021-02-08] MEDS: Gabapentin 600 MG Tab PO SCH (21:09)
[2021-02-08] MEDS: Melatonin 3 MG Tab PO PRN (21:09)
[2021-02-08] MEDS: atorvaSTATin 40 MG Tab PO SCH (21:09)
[2021-02-08] MEDS: oxyCODONE 5 MG Tab PO PRN (21:30)
[2021-02-09] MEDS: Diltiazem IR 60 MG Tab PO SCH ×3 (02:21→18:09)
[2021-02-09] MEDS: Acetaminophen 325 MG Tab PO PRN (02:21)
[2021-02-09] MEDS: HYDROmorphone 0.5 MG/0.5 ML Syringe IVPUSH PRN ×3 (02:22→20:14)
[2021-02-09] MEDS: Furosemide 40 MG/4 ML VIAL IVPUSH SCH ×2 (05:11→14:14)
[2021-02-09] MEDS: Pantoprazole 40 MG Tab.CR PO SCH (05:11)
[2021-02-09] MEDS: Magnesium Oxide 400 MG Tab PO SCH ×2 (08:44→20:07)
[2021-02-09] MEDS: Cholecalciferol (Vitamin D3) 5,000 UNIT Cap PO SCH (08:44)
[2021-02-09] MEDS: Metoprolol Tartrate 25 MG Tab PO SCH ×2 (08:45→20:07)
[2021-02-09] MEDS: Rivaroxaban 10 MG Tab PO SCH (08:46)
--- NOTE | 2021-02-09 13:33 | PCM.PN ---
<Mukul Odonnell - Last Filed: 02/09/21 13:35> - General Info Date of Service: 02/09/21 Admission Dx/Problem (Free Text): Atrial fibrillation with RVR. Functional Status: Reports: Pain Controlled, Tolerating Diet, Ambulating, Urinating. Denies: New Symptoms - Review of Systems General: Reports: Weakness. Denies: Fever, Fatigue, Malaise, Chills HEENT: Reports: No Symptoms. Denies: Headaches, Sore Throat Pulmonary: Reports: No Symptoms. Denies: Shortness of Breath, Cough, Sputum, Wheezing Cardiovascular: Reports: Dyspnea on Exertion (improved ), Edema. Denies: Chest Pain, Palpitations Gastrointestinal: Reports: No Symptoms, Vomiting (x2 today - no further episodes ). Denies: Abdominal Pain, Constipation, Diarrhea, Nausea Genitourinary: Reports: No Symptoms. Denies: Pain Musculoskeletal: Reports: No Symptoms Skin: Reports: No Symptoms. Denies: Cyanosis Neurological: Reports: Confusion, Difficulty Walking, Weakness, Gait Disturbance Psychiatric: Reports: No Symptoms - Patient Data Vitals - Most Recent: Last Vital Signs Temp 97.9 F 02/09/21 07:21 Pulse 97 02/09/21 11:04 Resp 16 02/09/21 11:04 BP 95/57 L 02/09/21 11:04 Pulse Ox 88 L 02/09/21 11:04 Weight - Most Recent: 245 lb 12.8 oz I&O - Last 24 Hours: Intake & Output 02/08/21 02/09/21 02/09/21 22:59 06:59 14:59 Intake Total 300 200 300 Output Total 675 200 Balance -375 0 300 Lab Results Last 24 Hours: Laboratory Results - last 24 hr 02/09/21 Range/Units 05:18 Sodium 142 (136-145) mEq/L Potassium 3.8 (3.5-5.1) mEq/L Chloride 106 (98-107) mEq/L Carbon Dioxide 29 (21-32) mEq/L Anion Gap 10.8 (5-15) BUN 9 (7-18) mg/dL Creatinine 0.8 (0.7-1.3) mg/dL Est Cr Clr Drug Dosing 93.81 mL/min Estimated GFR (MDRD) > 60 (>60) mL/min BUN/Creatinine Ratio 11.3 L (14-18) Glucose 99 (70-99) mg/dL Calcium 8.7 (8.5-10.1) mg/dL Magnesium 1.6 L (1.8-2.4) mg/dL Med Orders - Current: Current Medications Acetaminophen (Acetaminophen 325 Mg Tab) 650 mg PO Q4H PRN PRN Reason: Pain (Mild 1-3)/fever Last Admin: 02/09/21 02:21 Dose: 650 mg Documented by: Atorvastatin Calcium (Atorvastatin 40 Mg Tab) 40 mg PO BEDTIME [facility] Last Admin: 02/08/21 21:09 Dose: 40 mg Documented by: Cholecalciferol (Cholecalciferol (Vitamin D3) 5,000 Unit Cap) 5,000 unit PO DAILY [facility] Last Admin: 02/09/21 08:44 Dose: 5,000 unit Documented by: Diltiazem HCl (Diltiazem Ir 60 Mg Tab) 120 mg PO Q8H [facility] Last Admin: 02/09/21 11:10 Dose: 120 mg Documented by: Furosemide (Furosemide 40 Mg/4 Ml Vial) 40 mg IVPUSH BIDDIURETIC [facility] Last Admin: 02/09/21 05:11 Dose: 40 mg Documented by: Gabapentin (Gabapentin 600 Mg Tab) 600 mg PO BEDTIME [facility] Last Admin: 02/08/21 21:09 Dose: 600 mg Documented by: Hydromorphone HCl (Hydromorphone 0.5 Mg/0.5 Ml Syringe) 0.5 mg IVPUSH Q1H PRN PRN Reason: Pain (moderate 4-6) Last Admin: 02/09/21 02:22 Dose: 0.5 mg Documented by: Magnesium Oxide (Magnesium Oxide 400 Mg Tab) 800 mg PO BID [facility] Last Admin: 02/09/21 08:44 Dose: 800 mg Documented by: Melatonin (Melatonin 3 Mg Tab) 6 mg PO BEDTIME PRN PRN Reason: Sleep Last Admin: 02/08/21 21:09 Dose: 6 mg Documented by: Metoprolol Tartrate (Metoprolol Tartrate 25 Mg Tab) 75 mg PO Q12HR [facility] Last Admin: 02/09/21 08:45 Dose: 75 mg Documented by: Ondansetron HCl (Ondansetron 4 Mg/2 Ml Sdv) 4 mg IV Q4H PRN PRN Reason: Nausea/Vomiting Oxycodone HCl (Oxycodone 5 Mg Tab) 5 mg PO Q4H PRN PRN Reason: Pain (moderate 4-6) Last Admin: 02/08/21 21:30 Dose: 5 mg Documented by: Pantoprazole Sodium (Pantoprazole 40 Mg Tab.Cr) 40 mg PO ACBREAKFAST [facility] Last Admin: 02/09/21 05:11 Dose: 40 mg Documented by: Potassium Chloride (Potassium Chloride 20 Meq Tab.Er) 40 meq PO 1700 [facility] Last Admin: 02/08/21 16:07 Dose: 40 meq Documented by: Rivaroxaban (Rivaroxaban 10 Mg Tab) 20 mg PO DAILY [facility] Last Admin: 02/09/21 08:46 Dose: 20 mg Documented by: Sodium Chloride (Sodium Chloride 0.9% 10 Ml Syringe) 10 ml FLUSH ASDIRECTED PRN PRN Reason: Keep Vein Open Last Admin: 01/30/21 10:32 Dose: 10 ml Documented by: Discontinued Medications Amoxicillin/Clavulanate Potassium (Amoxicillin/Clavulanate K 500-125 Mg Tab) 1 tab PO Q8H [facility] Last Admin: 02/04/21 06:20 Dose: 1 tab Documented by: Chlordiazepoxide HCl (Chlordiazepoxide 25 Mg Cap) 50 mg PO BID [facility] Last Admin: 02/04/21 09:42 Dose: Not Given Documented by: Chlordiazepoxide HCl (Chlordiazepoxide 25 Mg Cap) 25 mg PO BID [facility] Last Admin: 02/02/21 20:41 Dose: Not Given Documented by: Cholecalciferol (Cholecalciferol (Vitamin D3) 5,000 Unit Tab) 5,000 unit PO DAILY [facility] Last Admin: 01/30/21 14:14 Dose: Not Given Documented by: Diltiazem HCl (Diltiazem 50 Mg/10 Ml Sdv) 10 mg IVPUSH ONETIME ONE Stop: 01/30/21 10:01 Last Admin: 01/30/21 10:07 Dose: 10 mg Documented by: Diltiazem HCl (Diltiazem Ir 60 Mg Tab) 120 mg PO TID [facility] Last Admin: 02/01/21 11:40 Dose: 120 mg Documented by: Diltiazem HCl (Diltiazem Ir 60 Mg Tab) 120 mg PO Q8H [facility] Last Admin: 02/07/21 11:04 Dose: 120 mg Documented by: Diltiazem HCl (Diltiazem 50 Mg/10 Ml Sdv) 10 mg IVPUSH ONETIME ONE Stop: 02/02/21 06:00 Last Admin: 02/02/21 06:12 Dose: 10 mg Documented by: Diltiazem HCl (Diltiazem Ir 30 Mg Tab) 120 mg PO Q8H [facility] Last Admin: 02/08/21 12:05 Dose: 120 mg Documented by: Folic Acid (Folic Acid 1 Mg Tab) 1 mg PO DAILY [facility] Stop: 02/01/21 09:01 Last Admin: 02/01/21 08:21 Dose: 1 mg Documented by: Furosemide (Furosemide 20 Mg/2 Ml Vial) 20 mg IVPUSH NOW ONE Stop: 02/01/21 20:21 Last Admin: 02/01/21 20:35 Dose: 20 mg Documented by: Furosemide (Furosemide 20 Mg/2 Ml Vial) 20 mg IVPUSH NOW ONE Stop: 02/02/21 11:31 Last Admin: 02/02/21 11:33 Dose: 20 mg Documented by: Furosemide (Furosemide 20 Mg Tab) 20 mg PO DAILY [facility] Last Admin: 02/03/21 08:01 Dose: 20 mg Documented by: Furosemide (Furosemide 40 Mg/4 Ml Vial) 40 mg IVPUSH NOW ONE Stop: 02/03/21 22:46 Last Admin: 02/03/21 22:52 Dose: 40 mg Documented by: Furosemide (Furosemide 40 Mg/4 Ml Vial) 40 mg IVPUSH DAILY [facility] Last Admin: 02/04/21 09:34 Dose: 40 mg Documented by: Furosemide (Furosemide 40 Mg/4 Ml Vial) 40 mg IVPUSH BID [facility] Stop: 02/05/21 23:52 Last Admin: 02/05/21 21:38 Dose: 40 mg Documented by: Haloperidol (Haloperidol 1 Mg Tab) 2 mg PO ONETIME ONE Stop: 02/01/21 09:04 Last Admin: 02/01/21 17:12 Dose: Not Given Documented by: Haloperidol (Haloperidol 1 Mg Tab) 2 mg PO ONETIME ONE Stop: 02/01/21 19:09 Last Admin: 02/02/21 05:02 Dose: Not Given Documented by: Hydromorphone HCl (Hydromorphone 1 Mg/Ml Syringe) 1 mg IVPUSH ONETIME ONE Stop: 01/30/21 10:01 Last Admin: 01/30/21 10:07 Dose: 1 mg Documented by: Hydromorphone HCl (Hydromorphone 0.5 Mg/0.5 Ml Syringe) 0.5 mg IVPUSH ONETIME ONE Stop: 01/30/21 12:01 Last Admin: 01/30/21 12:07 Dose: 0.5 mg Documented by: Diltiazem HCl 100 mg/ Sodium (Chloride) 100 mls @ 10 mls/hr IV TITRATE DI[facility]TE; Protocol Last Titration: 02/03/21 11:20 Dose: 0 mg/hr, 0 mls/hr Documented by: Sodium Chloride (Normal Saline) 1,000 mls @ 125 mls/hr IV ASDIRECTED DIAMANTE Last Infusion: 01/30/21 12:08 Dose: 125 mls/hr Documented by: Sodium Chloride (Normal Saline) 1,000 mls @ 999 mls/hr IV ONETIME ONE Stop: 01/30/21 12:00 Last Admin: 01/30/21 11:00 Dose: 999 mls/hr Documented by: Magnesium Sulfate 2 gm/ Premix 50 mls @ 25 mls/hr IV ONETIME ONE Stop: 01/30/21 15:28 Last Admin: 01/30/21 14:02 Dose: 25 mls/hr Documented by: Lactated Ringer's (Ringers, Lactated) 1,000 mls @ 100 mls/hr IV ASDIRECTED DIAMANTE Last Infusion: 01/31/21 17:35 Dose: 75 mls/hr Documented by: Lactated Ringer's (Ringers, Lactated) 1,000 mls @ 1,000 mls/hr IV .BOLUS ONE Stop: 01/31/21 09:44 Last Admin: 01/31/21 08:54 Dose: 1,000 mls/hr Documented by: Lactated Ringer's (Ringers, Lactated) 1,000 mls @ 1,000 mls/hr IV .BOLUS ONE Stop: 01/31/21 10:44 Last Admin: 01/31/21 10:10 Dose: 1,000 mls/hr Documented by: Piperacillin Sod/Tazobactam (Sod 4.5 gm/ Sodium Chloride) 100 mls @ 25 mls/hr IV Q8H [facility] Last Admin: 02/02/21 03:32 Dose: 25 mls/hr Documented by: Piperacillin Sod/Tazobactam (Sod 4.5 gm/ Sodium Chloride) 100 mls @ 200 mls/hr IV ONETIME ONE Stop: 01/31/21 12:29 Last Admin: 01/31/21 11:58 Dose: 200 mls/hr Documented by: Vancomycin HCl 2 gm/ Sodium (Chloride) 500 mls @ 250 mls/hr IV ONETIME ONE Stop: 01/31/21 13:59 Last Admin: 01/31/21 12:38 Dose: 250 mls/hr Documented by: Vancomycin HCl 1.75 gm/ Sodium (Chloride) 500 mls @ 250 mls/hr IV Q12H [facility] Stop: 02/02/21 14:00 Last Admin: 02/02/21 11:33 Dose: 250 mls/hr Documented by: Lactated Ringer's (Ringers, Lactated) 1,000 mls @ 75 mls/hr IV ASDIRECTED [facility] Last Infusion: 02/01/21 09:13 Dose: 20 mls/hr Documented by: Lactated Ringer's (Ringers, Lactated) 1,000 mls @ 20 mls/hr IV ASDIRECTED [facility] Last Admin: 02/01/21 14:00 Dose: 20 mls/hr Documented by: Magnesium Sulfate/Dextrose 1 (gm/ Premix) 100 mls @ 100 mls/hr IV ONETIME ONE Stop: 02/01/21 10:29 Last Admin: 02/01/21 09:18 Dose: 100 mls/hr Documented by: Magnesium Sulfate 2 gm/ Premix 50 mls @ 25 mls/hr IV ONETIME ONE Stop: 02/02/21 10:29 Last Admin: 02/02/21 08:17 Dose: 25 mls/hr Documented by: Magnesium Sulfate 2 gm/ Premix 50 mls @ 25 mls/hr IV ONETIME ONE Stop: 02/04/21 11:29 Last Admin: 02/04/21 09:34 Dose: 25 mls/hr Documented by: Potassium Chloride 10 meq/ (Premix) 100 mls @ 100 mls/hr IV Q1H [facility] Stop: 02/04/21 15:59 Last Admin: 02/04/21 14:42 Dose: 100 mls/hr Documented by: Ampicillin Sodium/Sulbactam (Sodium 3 gm/ Sodium Chloride) 100 mls @ 200 mls/hr IV Q6H [facility] Last Admin: 02/08/21 03:40 Dose: 200 mls/hr Documented by: Insulin Human Lispro (Insulin Lispro 100 Unit/Ml 10 Ml Vial) 0 unit SUBCUT QIDACANDBED [facility]; Protocol Last Admin: 02/04/21 17:21 Dose: Not Given Documented by: Lorazepam (Lorazepam 2 Mg/Ml Sdv) 0 mg IV ASDIRECTED [facility]; Protocol Last Admin: 02/03/21 17:52 Dose: 1 mg Documented by: Lorazepam (Lorazepam 1 Mg Tab) 1 mg PO Q1H PRN PRN Reason: Withdrawal Symptoms Last Admin: 02/01/21 11:30 Dose: 1 mg Documented by: Losartan Potassium (Losartan 25 Mg Tab) 25 mg PO DAILY [facility] Last Admin: 02/06/21 08:06 Dose: 25 mg Documented by: Magnesium Oxide (Magnesium Oxide 400 Mg Tab) 400 mg PO BID [facility] Last Admin: 02/08/21 21:09 Dose: 400 mg Documented by: Metoprolol Succinate (Metoprolol Succinate 50 Mg Tab.Er) 50 mg PO DAILY [facility] Last Admin: 01/31/21 07:24 Dose: 50 mg Documented by: Metoprolol Tartrate (Metoprolol Tartrate 50 Mg Tab) 50 mg PO Q12HR [facility] Last Admin: 02/02/21 20:40 Dose: 50 mg Documented by: Metoprolol Tartrate (Metoprolol Tartrate 50 Mg Tab) 75 mg PO Q12HR [facility] Last Admin: 02/03/21 21:21 Dose: 75 mg Documented by: Metoprolol Tartrate (Metoprolol Tartrate 50 Mg Tab) 100 mg PO Q12HR [facility] Last Admin: 02/07/21 08:15 Dose: 100 mg Documented by: Multivitamins/Minerals/Vitamin C (Multivitamin Tab) 1 tab PO ONETIME ONE Stop: 01/30/21 13:38 Last Admin: 01/30/21 14:02 Dose: 1 tab Documented by: Potassium Chloride (Potassium Chloride 20 Meq Tab.Er) 40 meq PO ONETIME ONE Stop: 02/03/21 08:38 Last Admin: 02/03/21 08:53 Dose: 40 meq Documented by: Potassium Chloride (Potassium Chloride 20 Meq Tab.Er) 40 meq PO ONETIME ONE Stop: 02/07/21 08:01 Potassium Chloride (Potassium Chloride 20 Meq Tab.Er) 40 meq PO ONETIME ONE Stop: 02/07/21 09:01 Last Admin: 02/07/21 08:16 Dose: 40 meq Documented by: Potassium Chloride (Potassium Chloride 20 Meq Tab.Er) 40 meq PO ONETIME ONE Stop: 02/07/21 12:01 Last Admin: 02/07/21 11:05 Dose: 40 meq Documented by: Potassium Chloride (Potassium Chloride 20 Meq Tab.Er) 40 meq PO ONETIME ONE Stop: 02/07/21 07:30 Last Admin: 02/07/21 07:36 Dose: 40 meq Documented by: Thiamine HCl (Thiamine 100 Mg Tab) 100 mg PO DAILY [facility] Last Admin: 02/04/21 09:35 Dose: 100 mg Documented by: Trazodone HCl (Trazodone 50 Mg Tab) 50 mg PO BEDTIME PRN PRN Reason: Sleep Last Admin: 02/06/21 21:30 Dose: 50 mg Documented by: Vancomycin HCl (Pharmacy To Dose - Vancomycin) 1 dose .XX ASDIRECTED PRN PRN Reason: RX TO DOSE VANCO - Exam Quality Assessment: Supplemental Oxygen (2L), DVT Prophylaxis. No: Urine Catheter General: Alert, Oriented (for the most part ), Cooperative, No Acute Distress HEENT: Pupils Equal, Pupils Reactive, Mucous Membr. Moist/[place] Neck: Supple, Trachea Midline Lungs: Clear to Auscultation, Normal Respiratory Effort, Decreased Breath Sounds Cardiovascular: Regular Rate, Regular Rhythm GI/Abdominal Exam: Normal Bowel Sounds, Soft, Non-Tender, No Distention (Male) Exam: Deferred Back Exam: Normal Inspection, Full Range of Motion Extremities: Normal Inspection, Normal Range of Motion, Non-Tender, Normal Capillary Refill, Pedal Edema Skin: Warm, Dry, Intact Neurological: No New Focal Deficit Psy/Mental Status: Alert - Patient Data Lab Results Last 24 hrs: Laboratory Results - last 24 hr 02/09/21 Range/Units 05:18 Sodium 142 (136-145) mEq/L Potassium 3.8 (3.5-5.1) mEq/L Chloride 106 (98-107) mEq/L Carbon Dioxide 29 (21-32) mEq/L Anion Gap 10.8 (5-15) BUN 9 (7-18) mg/dL Creatinine 0.8 (0.7-1.3) mg/dL Est Cr Clr Drug Dosing 93.81 mL/min Estimated GFR (MDRD) > 60 (>60) mL/min BUN/Creatinine Ratio 11.3 L (14-18) Glucose 99 (70-99) mg/dL Calcium 8.7 (8.5-10.1) mg/dL Magnesium 1.6 L (1.8-2.4) mg/dL Result Diagrams: 02/07/21 06:07 02/09/21 05:18 Sepsis Event Note - Evaluation Sepsis Screening Result: No Definite Risk - Focused Exam Vital Signs: Vital Signs Temp Pulse Resp BP BP Pulse Ox Pulse Ox 02/09/21 11:04 97 16 95/57 L 88 L 02/09/21 08:45 81 98/71 02/09/21 07:21 97.9 F 81 14 98/71 94 L 02/09/21 05:29 92 L 02/09/21 05:23 76 18 95/60 91 L - Problem List & Annotations (1) Chronic atrial fibrillation with RVR SNOMED Code(s): 783619932, 932316960885976 Code(s): I48.20 - CHRONIC ATRIAL FIBRILLATION, UNSPECIFIED Status: Resolved Priority: Medium Current Visit: Yes (2) Alcoholism SNOMED Code(s): 9254156 Code(s): F10.20 - ALCOHOL DEPENDENCE, UNCOMPLICATED Status: Chronic Priority: High Current Visit: No (3) Acute respiratory failure with hypoxemia SNOMED Code(s): 629624973 Code(s): J96.01 - ACUTE RESPIRATORY FAILURE WITH HYPOXIA Status: Acute Priority: High Current Visit: Yes (4) Aspiration pneumonia SNOMED Code(s): 041530752 Code(s): J69.0 - PNEUMONITIS DUE TO INHALATION OF FOOD AND VOMIT Status: Resolved Priority: High Current Visit: Yes Qualifiers: Aspiration pneumonia type: unspecified Laterality: unspecified laterality Lung location: unspecified part of lung Qualified Code(s): J69.0 - Pneumonitis due to inhalation of food and vomit (5) Alcohol withdrawal SNOMED Code(s): 561407918 Code(s): F10.239 - ALCOHOL DEPENDENCE WITH WITHDRAWAL, UNSPECIFIED Status: Resolved Priority: High Current Visit: Yes Qualifiers: Complication of substance-induced condition: with unspecified complication Qualified Code(s): F10.239 - Alcohol dependence with withdrawal, unspecified (6) CHF exacerbation SNOMED Code(s): 429282557, 95092679283060 Code(s): I50.9 - HEART FAILURE, UNSPECIFIED Status: Acute Priority: High Current Visit: Yes Qualifiers: Heart failure type: unspecified Qualified Code(s): I50.9 - Heart failure, unspecified (7) History of MRSA infection SNOMED Code(s): 540390402, 971750690 Code(s): Z86.14 - PERSONAL HISTORY OF METHICILLIN RESIS STAPH INFECTION Status: Chronic Priority: Low Current Visit: No (8) History of hepatitis C SNOMED Code(s): 38161925330056, 73348889223384 Code(s): Z86.19 - PERSONAL HISTORY OF OTHER INFECTIOUS AND PARASITIC DISEASES Status: Chronic Priority: Low Current Visit: No (9) Type 2 diabetes mellitus SNOMED Code(s): 31693276 Code(s): E11.9 - TYPE 2 DIABETES MELLITUS WITHOUT COMPLICATIONS Status: Chronic Priority: Medium Current Visit: No Qualifiers: Diabetes mellitus retirement insulin use: without retirement use Diabetes mellitus complication status: with neurologic complications (10) Wernicke encephalopathy SNOMED Code(s): 12287221 Code(s): E51.2 - WERNICKE'S ENCEPHALOPATHY Status: Chronic Priority: High Current Visit: Yes (11) Atrial fibrillation SNOMED Code(s): 96772671 Code(s): I48.91 - UNSPECIFIED ATRIAL FIBRILLATION Status: Chronic Priority: Medium Current Visit: No Qualifiers: Atrial fibrillation type: unspecified Qualified Code(s): I48.91 - Unspecified atrial fibrillation - Problem List Review Problem List Initiated/Reviewed/Updated: Yes - My Orders Last 24 Hours: My Active Orders 02/08/21 17:00 Potassium Chloride [Klor-Con M20] 40 meq PO 1700 02/08/21 21:00 Melatonin 6 mg PO BEDTIME PRN 02/09/21 09:00 Magnesium Oxide 800 mg PO BID 02/09/21 11:05 OCCULT BLD GASTRIC Routine 02/10/21 05:11 BASIC METABOLIC PANEL,BMP [CHEM] AM MAGNESIUM [CHEM] AM 02/11/21 05:11 BASIC METABOLIC PANEL,BMP [CHEM] AM MAGNESIUM [CHEM] AM 02/12/21 05:11 BASIC METABOLIC PANEL,BMP [CHEM] AM MAGNESIUM [CHEM] AM - Assessment Assessment:: 02/09/2021 This is a 60-year-old male who presented to our ED on 01-30-2021 with right leg pain and swelling. In the ED he was noted to be in A. fib with RVR. He does have a history of chronic A. fib and is on Xarelto. He is concerned that his right leg is swollen and that he may have a blood clot. Right lower extremity duplex ultrasound is obtained showing no findings concerning for DVT. Twelve- lead EKG in ED showed A. fib with a rate of 151 and he was given IV push Cardizem followed by a Cardizem drip. He does carry history of chronic alcohol abuse and he was started on CIWA protocol. At his worst CIWA score was 7. He has since been completely detoxed and all subsequent medications for this were discontinued. Patient does have symptoms concerning for Warnicke's encephalopathy. He does have difficulty with ambulation. He has been working with PT and OT who are recommending SNF placement. Case management social work have been working on this. Patient was also treated for aspiration pneumonia. He has completed 10 days worth of treatment and antibiotics will be stopped. His potassium has been low and has been supplemented. Unfortunately throughout treatment for his pneumonia and withdrawal symptoms patient did become somewhat fluid overloaded. We are working on diuresing this now. Patient remains on 2 L of oxygen. At his heaviest he was 257 pounds on 02-06-2021 and today is 249. Of note patient is not on any diuretics at baseline. We will continue to diurese and attempt to wean him off oxygen. Plan will be to discharge to SNF once medically stable. Anticipate discharge in 24 to 48 hours. 02/09/2021 60-year-old male with a rather complex admission which included treatment for A. fib with RVR, detox and continued confusion concerning for Warnicke's en cephalopathy. PT and OT continue to recommend SNF placement and patient is in agreement to this. Labs today show sodium 142. Potassium 3.8. Chloride 106. Carbon dioxide 29. Anion gap 10.8. BUN 9. Creatinine 0.8. GFR greater than 60. Magnesium 1.6. He was already on 400 mg p.o. magnesium twice daily and this will be increased to 800 mg p.o. twice daily. He did have an episode of emesis today in which he vomited twice. Since then he has had no episodes of emesis and he has not been nauseated. Social work continues to work on placement. He is cleared for discharge pending placement. In the meantime we will continue twice daily Lasix as prior. Echo report was obtained and appears to be from November 2020. At that time there is noted to be mild left ventricular hypertrophy with an EF of 45% and global hypokinesis of the left ventricular wall segments. Grade 3 diastolic dysfunction was noted. Left atrium was noted to be moderately dilated and right atrium was noted to be mildly dilated. There is mild mitral regurgitation and mild tricuspid valve regurgitation with an RSVP measuring 49.9 mmHg. Because of this patient will be required to be discharged on p.o. Lasix. - Plan Plan:: 1. Acute hypoxic respiratory failure in the setting of aspiration pneumonia. Continue supplemental oxygen, wean as tolerated. Respiratory therapy consult As needed bronchodilators. Antibiotics for full course, reverted back to IV Unasyn 02/04. Completed a 10-day course. Incentive spirometry encouraged. Daily ambulation saturation trials. History of MRSA 2. Acute alcohol withdrawal. - Resolved CIWA protocol now discontinued. All sedation has been held. No active signs of withdrawal. Patient is not a distraction to his own care and is not aggressive. Due to longstanding alcohol abuse, it is quite evident that the patient displays signs of Warnicke's encephalopathy. However does answer questions and is able to follow commands, is redirectable. 3. Atrial fibrillation with rapid ventricular response. - rate controlled Continue metoprolol to 100 mg twice daily. Continue Cardizem IR 120 mg 3 times daily with conversion to Cardizem CD 360 mg at time of discharge. 4. History of chronic systolic congestive heart failure. Monitor volume status. Direction of 1 L to 1.5 L/day. Daily weights by standing scale. Titrate diuretics as necessary. Continue Lasix to 40 mg IV twice daily 5. History of type 2 diabetes mellitus. Sugars controlled with metabolic laboratory checks. Does not require aggressive treatment. 6. History of Hepatitis C Nothing acute required CODE STATUS: Full code. DVT prophylaxis: Systemic anticoagulation. <Can Reid Jr - Last Filed: 02/09/21 17:49> - Patient Data Vitals - Most Recent: Last Vital Signs Temp 98.2 F 02/09/21 14:57 Pulse 96 02/09/21 14:57 Resp 16 02/09/21 14:57 BP 91/64 02/09/21 14:57 Pulse Ox 92 L 02/09/21 14:57 I&O - Last 24 Hours: Intake & Output 02/09/21 02/09/21 02/09/21 06:59 14:59 22:59 Intake Total 200 300 420 Output Total 200 625 Balance 0 300 -205 Lab Results Last 24 Hours: Laboratory Results - last 24 hr 02/09/21 Range/Units 05:18 Sodium 142 (136-145) mEq/L Potassium 3.8 (3.5-5.1) mEq/L Chloride 106 (98-107) mEq/L Carbon Dioxide 29 (21-32) mEq/L Anion Gap 10.8 (5-15) BUN 9 (7-18) mg/dL Creatinine 0.8 (0.7-1.3) mg/dL Est Cr Clr Drug Dosing 93.81 mL/min Estimated GFR (MDRD) > 60 (>60) mL/min BUN/Creatinine Ratio 11.3 L (14-18) Glucose 99 (70-99) mg/dL Calcium 8.7 (8.5-10.1) mg/dL Magnesium 1.6 L (1.8-2.4) mg/dL Med Orders - Current: Current Medications Acetaminophen (Acetaminophen 325 Mg Tab) 650 mg PO Q4H PRN PRN Reason: Pain (Mild 1-3)/fever Last Admin: 02/09/21 02:21 Dose: 650 mg Documented by: Atorvastatin Calcium (Atorvastatin 40 Mg Tab) 40 mg PO BEDTIME [facility] Last Admin: 02/08/21 21:09 Dose: 40 mg Documented by: Cholecalciferol (Cholecalciferol (Vitamin D3) 5,000 Unit Cap) 5,000 unit PO DAILY [facility] Last Admin: 02/09/21 08:44 Dose: 5,000 unit Documented by: Diltiazem HCl (Diltiazem Ir 60 Mg Tab) 120 mg PO Q8H [facility] Last Admin: 02/09/21 11:10 Dose: 120 mg Documented by: Furosemide (Furosemide 40 Mg/4 Ml Vial) 40 mg IVPUSH BIDDIURETIC [facility] Last Admin: 02/09/21 14:14 Dose: 40 mg Documented by: Gabapentin (Gabapentin 600 Mg Tab) 600 mg PO BEDTIME [facility] Last Admin: 02/08/21 21:09 Dose: 600 mg Documented by: Hydromorphone HCl (Hydromorphone 0.5 Mg/0.5 Ml Syringe) 0.5 mg IVPUSH Q1H PRN PRN Reason: Pain (moderate 4-6) Last Admin: 02/09/21 14:57 Dose: 0.5 mg Documented by: Magnesium Oxide (Magnesium Oxide 400 Mg Tab) 800 mg PO BID [facility] Last Admin: 02/09/21 08:44 Dose: 800 mg Documented by: Melatonin (Melatonin 3 Mg Tab) 6 mg PO BEDTIME PRN PRN Reason: Sleep Last Admin: 02/08/21 21:09 Dose: 6 mg Documented by: Metoprolol Tartrate (Metoprolol Tartrate 25 Mg Tab) 75 mg PO Q12HR [facility] Last Admin: 02/09/21 08:45 Dose: 75 mg Documented by: Ondansetron HCl (Ondansetron 4 Mg/2 Ml Sdv) 4 mg IV Q4H PRN PRN Reason: Nausea/Vomiting Oxycodone HCl (Oxycodone 5 Mg Tab) 5 mg PO Q4H PRN PRN Reason: Pain (moderate 4-6) Last Admin: 02/08/21 21:30 Dose: 5 mg Documented by: Pantoprazole Sodium (Pantoprazole 40 Mg Tab.Cr) 40 mg PO ACBREAKFAST [facility] Last Admin: 02/09/21 05:11 Dose: 40 mg Documented by: Potassium Chloride (Potassium Chloride 20 Meq Tab.Er) 40 meq PO 1700 [facility] Last Admin: 02/09/21 16:38 Dose: 40 meq Documented by: Rivaroxaban (Rivaroxaban 10 Mg Tab) 20 mg PO DAILY [facility] Last Admin: 02/09/21 08:46 Dose: 20 mg Documented by: Sodium Chloride (Sodium Chloride 0.9% 10 Ml Syringe) 10 ml FLUSH ASDIRECTED PRN PRN Reason: Keep Vein Open Last Admin: 01/30/21 10:32 Dose: 10 ml Documented by: Discontinued Medications Amoxicillin/Clavulanate Potassium (Amoxicillin/Clavulanate K 500-125 Mg Tab) 1 tab PO Q8H [facility] Last Admin: 02/04/21 06:20 Dose: 1 tab Documented by: Chlordiazepoxide HCl (Chlordiazepoxide 25 Mg Cap) 50 mg PO BID [facility] Last Admin: 02/04/21 09:42 Dose: Not Given Documented by: Chlordiazepoxide HCl (Chlordiazepoxide 25 Mg Cap) 25 mg PO BID [facility] Last Admin: 02/02/21 20:41 Dose: Not Given Documented by: Cholecalciferol (Cholecalciferol (Vitamin D3) 5,000 Unit Tab) 5,000 unit PO DAILY [facility] Last Admin: 01/30/21 14:14 Dose: Not Given Documented by: Diltiazem HCl (Diltiazem 50 Mg/10 Ml Sdv) 10 mg IVPUSH ONETIME ONE Stop: 01/30/21 10:01 Last Admin: 01/30/21 10:07 Dose: 10 mg Documented by: Diltiazem HCl (Diltiazem Ir 60 Mg Tab) 120 mg PO TID [facility] Last Admin: 02/01/21 11:40 Dose: 120 mg Documented by: Diltiazem HCl (Diltiazem Ir 60 Mg Tab) 120 mg PO Q8H [facility] Last Admin: 02/07/21 11:04 Dose: 120 mg Documented by: Diltiazem HCl (Diltiazem 50 Mg/10 Ml Sdv) 10 mg IVPUSH ONETIME ONE Stop: 02/02/21 06:00 Last Admin: 02/02/21 06:12 Dose: 10 mg Documented by: Diltiazem HCl (Diltiazem Ir 30 Mg Tab) 120 mg PO Q8H [facility] Last Admin: 02/08/21 12:05 Dose: 120 mg Documented by: Folic Acid (Folic Acid 1 Mg Tab) 1 mg PO DAILY [facility] Stop: 02/01/21 09:01 Last Admin: 02/01/21 08:21 Dose: 1 mg Documented by: Furosemide (Furosemide 20 Mg/2 Ml Vial) 20 mg IVPUSH NOW ONE Stop: 02/01/21 20:21 Last Admin: 02/01/21 20:35 Dose: 20 mg Documented by: Furosemide (Furosemide 20 Mg/2 Ml Vial) 20 mg IVPUSH NOW ONE Stop: 02/02/21 11:31 Last Admin: 02/02/21 11:33 Dose: 20 mg Documented by: Furosemide (Furosemide 20 Mg Tab) 20 mg PO DAILY [facility] Last Admin: 02/03/21 08:01 Dose: 20 mg Documented by: Furosemide (Furosemide 40 Mg/4 Ml Vial) 40 mg IVPUSH NOW ONE Stop: 02/03/21 22:46 Last Admin: 02/03/21 22:52 Dose: 40 mg Documented by: Furosemide (Furosemide 40 Mg/4 Ml Vial) 40 mg IVPUSH DAILY [facility] Last Admin: 02/04/21 09:34 Dose: 40 mg Documented by: Furosemide (Furosemide 40 Mg/4 Ml Vial) 40 mg IVPUSH BID [facility] Stop: 02/05/21 23:52 Last Admin: 02/05/21 21:38 Dose: 40 mg Documented by: Haloperidol (Haloperidol 1 Mg Tab) 2 mg PO ONETIME ONE Stop: 02/01/21 09:04 Last Admin: 02/01/21 17:12 Dose: Not Given Documented by: Haloperidol (Haloperidol 1 Mg Tab) 2 mg PO ONETIME ONE Stop: 02/01/21 19:09 Last Admin: 02/02/21 05:02 Dose: Not Given Documented by: Hydromorphone HCl (Hydromorphone 1 Mg/Ml Syringe) 1 mg IVPUSH ONETIME ONE Stop: 01/30/21 10:01 Last Admin: 01/30/21 10:07 Dose: 1 mg Documented by: Hydromorphone HCl (Hydromorphone 0.5 Mg/0.5 Ml Syringe) 0.5 mg IVPUSH ONETIME ONE Stop: 01/30/21 12:01 Last Admin: 01/30/21 12:07 Dose: 0.5 mg Documented by: Diltiazem HCl 100 mg/ Sodium (Chloride) 100 mls @ 10 mls/hr IV TITRATE DIAM[facility]; Protocol Last Titration: 02/03/21 11:20 Dose: 0 mg/hr, 0 mls/hr Documented by: Sodium Chloride (Normal Saline) 1,000 mls @ 125 mls/hr IV ASDIRECTED DIAMANTE Last Infusion: 01/30/21 12:08 Dose: 125 mls/hr Documented by: Sodium Chloride (Normal Saline) 1,000 mls @ 999 mls/hr IV ONETIME ONE Stop: 01/30/21 12:00 Last Admin: 01/30/21 11:00 Dose: 999 mls/hr Documented by: Magnesium Sulfate 2 gm/ Premix 50 mls @ 25 mls/hr IV ONETIME ONE Stop: 01/30/21 15:28 Last Admin: 01/30/21 14:02 Dose: 25 mls/hr Documented by: Lactated Ringer's (Ringers, Lactated) 1,000 mls @ 100 mls/hr IV ASDIRECTED [facility] Last Infusion: 01/31/21 17:35 Dose: 75 mls/hr Documented by: Lactated Ringer's (Ringers, Lactated) 1,000 mls @ 1,000 mls/hr IV .BOLUS ONE Stop: 01/31/21 09:44 Last Admin: 01/31/21 08:54 Dose: 1,000 mls/hr Documented by: Lactated Ringer's (Ringers, Lactated) 1,000 mls @ 1,000 mls/hr IV .BOLUS ONE Stop: 01/31/21 10:44 Last Admin: 01/31/21 10:10 Dose: 1,000 mls/hr Documented by: Piperacillin Sod/Tazobactam (Sod 4.5 gm/ Sodium Chloride) 100 mls @ 25 mls/hr IV Q8H [facility] Last Admin: 02/02/21 03:32 Dose: 25 mls/hr Documented by: Piperacillin Sod/Tazobactam (Sod 4.5 gm/ Sodium Chloride) 100 mls @ 200 mls/hr IV ONETIME ONE Stop: 01/31/21 12:29 Last Admin: 01/31/21 11:58 Dose: 200 mls/hr Documented by: Vancomycin HCl 2 gm/ Sodium (Chloride) 500 mls @ 250 mls/hr IV ONETIME ONE Stop: 01/31/21 13:59 Last Admin: 01/31/21 12:38 Dose: 250 mls/hr Documented by: Vancomycin HCl 1.75 gm/ Sodium (Chloride) 500 mls @ 250 mls/hr IV Q12H [facility] Stop: 02/02/21 14:00 Last Admin: 02/02/21 11:33 Dose: 250 mls/hr Documented by: Lactated Ringer's (Ringers, Lactated) 1,000 mls @ 75 mls/hr IV ASDIRECTED [facility] Last Infusion: 02/01/21 09:13 Dose: 20 mls/hr Documented by: Lactated Ringer's (Ringers, Lactated) 1,000 mls @ 20 mls/hr IV ASDIRECTED [facility] Last Admin: 02/01/21 14:00 Dose: 20 mls/hr Documented by: Magnesium Sulfate/Dextrose 1 (gm/ Premix) 100 mls @ 100 mls/hr IV ONETIME ONE Stop: 02/01/21 10:29 Last Admin: 02/01/21 09:18 Dose: 100 mls/hr Documented by: Magnesium Sulfate 2 gm/ Premix 50 mls @ 25 mls/hr IV ONETIME ONE Stop: 02/02/21 10:29 Last Admin: 02/02/21 08:17 Dose: 25 mls/hr Documented by: Magnesium Sulfate 2 gm/ Premix 50 mls @ 25 mls/hr IV ONETIME ONE Stop: 02/04/21 11:29 Last Admin: 02/04/21 09:34 Dose: 25 mls/hr Documented by: Potassium Chloride 10 meq/ (Premix) 100 mls @ 100 mls/hr IV Q1H [facility] Stop: 02/04/21 15:59 Last Admin: 02/04/21 14:42 Dose: 100 mls/hr Documented by: Ampicillin Sodium/Sulbactam (Sodium 3 gm/ Sodium Chloride) 100 mls @ 200 mls/hr IV Q6H [facility] Last Admin: 02/08/21 03:40 Dose: 200 mls/hr Documented by: Insulin Human Lispro (Insulin Lispro 100 Unit/Ml 10 Ml Vial) 0 unit SUBCUT QIDACANDBED [facility]; Protocol Last Admin: 02/04/21 17:21 Dose: Not Given Documented by: Lorazepam (Lorazepam 2 Mg/Ml Sdv) 0 mg IV ASDIRECTED [facility]; Protocol Last Admin: 02/03/21 17:52 Dose: 1 mg Documented by: Lorazepam (Lorazepam 1 Mg Tab) 1 mg PO Q1H PRN PRN Reason: Withdrawal Symptoms Last Admin: 02/01/21 11:30 Dose: 1 mg Documented by: Losartan Potassium (Losartan 25 Mg Tab) 25 mg PO DAILY [facility] Last Admin: 02/06/21 08:06 Dose: 25 mg Documented by: Magnesium Oxide (Magnesium Oxide 400 Mg Tab) 400 mg PO BID [facility] Last Admin: 02/08/21 21:09 Dose: 400 mg Documented by: Metoprolol Succinate (Metoprolol Succinate 50 Mg Tab.Er) 50 mg PO DAILY [facility] Last Admin: 01/31/21 07:24 Dose: 50 mg Documented by: Metoprolol Tartrate (Metoprolol Tartrate 50 Mg Tab) 50 mg PO Q12HR [facility] Last Admin: 02/02/21 20:40 Dose: 50 mg Documented by: Metoprolol Tartrate (Metoprolol Tartrate 50 Mg Tab) 75 mg PO Q12HR [facility] Last Admin: 02/03/21 21:21 Dose: 75 mg Documented by: Metoprolol Tartrate (Metoprolol Tartrate 50 Mg Tab) 100 mg PO Q12HR [facility] Last Admin: 02/07/21 08:15 Dose: 100 mg Documented by: Multivitamins/Minerals/Vitamin C (Multivitamin Tab) 1 tab PO ONETIME ONE Stop: 01/30/21 13:38 Last Admin: 01/30/21 14:02 Dose: 1 tab Documented by: Potassium Chloride (Potassium Chloride 20 Meq Tab.Er) 40 meq PO ONETIME ONE Stop: 02/03/21 08:38 Last Admin: 02/03/21 08:53 Dose: 40 meq Documented by: Potassium Chloride (Potassium Chloride 20 Meq Tab.Er) 40 meq PO ONETIME ONE Stop: 02/07/21 08:01 Potassium Chloride (Potassium Chloride 20 Meq Tab.Er) 40 meq PO ONETIME ONE Stop: 02/07/21 09:01 Last Admin: 02/07/21 08:16 Dose: 40 meq Documented by: Potassium Chloride (Potassium Chloride 20 Meq Tab.Er) 40 meq PO ONETIME ONE Stop: 02/07/21 12:01 Last Admin: 02/07/21 11:05 Dose: 40 meq Documented by: Potassium Chloride (Potassium Chloride 20 Meq Tab.Er) 40 meq PO ONETIME ONE Stop: 02/07/21 07:30 Last Admin: 02/07/21 07:36 Dose: 40 meq Documented by: Thiamine HCl (Thiamine 100 Mg Tab) 100 mg PO DAILY [facility] Last Admin: 02/04/21 09:35 Dose: 100 mg Documented by: Trazodone HCl (Trazodone 50 Mg Tab) 50 mg PO BEDTIME PRN PRN Reason: Sleep Last Admin: 02/06/21 21:30 Dose: 50 mg Documented by: Vancomycin HCl (Pharmacy To Dose - Vancomycin) 1 dose .XX ASDIRECTED PRN PRN Reason: RX TO DOSE VANCO - Patient Data Lab Results Last 24 hrs: Laboratory Results - last 24 hr 02/09/21 Range/Units 05:18 Sodium 142 (136-145) mEq/L Potassium 3.8 (3.5-5.1) mEq/L Chloride 106 (98-107) mEq/L Carbon Dioxide 29 (21-32) mEq/L Anion Gap 10.8 (5-15) BUN 9 (7-18) mg/dL Creatinine 0.8 (0.7-1.3) mg/dL Est Cr Clr Drug Dosing 93.81 mL/min Estimated GFR (MDRD) > 60 (>60) mL/min BUN/Creatinine Ratio 11.3 L (14-18) Glucose 99 (70-99) mg/dL Calcium 8.7 (8.5-10.1) mg/dL Magnesium 1.6 L (1.8-2.4) mg/dL Result Diagrams: 02/07/21 06:07 02/09/21 05:18 Sepsis Event Note - Focused Exam Vital Signs: Vital Signs Temp Pulse Resp BP Pulse Ox 02/09/21 14:57 98.2 F 96 16 91/64 92 L 02/09/21 14:04 86 92 L 02/09/21 11:04 97 16 95/57 L 88 L 02/09/21 08:45 81 98/71 02/09/21 07:21 97.9 F 81 14 98/71 94 L - Plan Plan:: Case discussed in full. Agree with evaluation, assessment and plan.
[2021-02-09] MEDS: Potassium Chloride 20 MEQ Tab.ER PO SCH (16:38)
[2021-02-09] MEDS: Gabapentin 600 MG Tab PO SCH (20:06)
[2021-02-09] MEDS: atorvaSTATin 40 MG Tab PO SCH (20:06)
[2021-02-09] MEDS: Melatonin 3 MG Tab PO PRN (20:06)
[2021-02-10] MEDS: Diltiazem IR 60 MG Tab PO SCH ×2 (03:07→11:02)
[2021-02-10] MEDS: Pantoprazole 40 MG Tab.CR PO SCH (05:27)
[2021-02-10] MEDS: Furosemide 40 MG/4 ML VIAL IVPUSH SCH (05:27)
[2021-02-10] MEDS: Cholecalciferol (Vitamin D3) 5,000 UNIT Cap PO SCH (08:48)
[2021-02-10] MEDS: Rivaroxaban 10 MG Tab PO SCH (08:48)
[2021-02-10] MEDS: Metoprolol Tartrate 25 MG Tab PO SCH (08:49)
[2021-02-10] MEDS: Magnesium Oxide 400 MG Tab PO SCH (08:49)
[2021-02-10 11:43] VITALS: BP 95/65; PULSE 82
--- NOTE | 2021-02-10 12:43 | PCM.DCSUM1 ---
<Mukul Odonnell - Last Filed: 02/10/21 14:13> Discharge Summary - Hospital Course HPI Initial Comments: This is a 60M with PMHx of Type II DM, Atrial Fibrillation (on xarelto and metoprolol), hx of alcoholism presenting for right lower extremity pain. The patient continues to drink daily, his last drink of beer and liquor was last night. he has bruising on his right lower extremity but he is unsure of mechanism of injury. He denies falls, denies hitting his head. He presented to ED where he was noted to be in Atrial Fibrillation w/RVR. He was given IVF and given diltiazem bolus infusion and started on IV continuous infusion. He denies chest pain, chest pressure, palpitations. Denies nausea, vomiting, abdominal pain, fever. Endorses hx of alcohol withdrawal tremors. Diagnosis: Stroke: No - Discharge Data Discharge Date: 02/10/21 (Admit date: 01/30/2021) Discharge Disposition: DC/Tfer to SNF 03 Condition: Fair - Referral to Home Health Primary Care Physician: Geneva Gutiérrez MD - Discharge Diagnosis/Problem(s) (1) Chronic atrial fibrillation with RVR SNOMED Code(s): 402143906, 791677225181562 ICD Code: I48.20 - CHRONIC ATRIAL FIBRILLATION, UNSPECIFIED Status: Resolved Priority: Medium (2) Alcoholism SNOMED Code(s): 1826851 ICD Code: F10.20 - ALCOHOL DEPENDENCE, UNCOMPLICATED Status: Chronic Priority: High (3) Acute respiratory failure with hypoxemia SNOMED Code(s): 646137758 ICD Code: J96.01 - ACUTE RESPIRATORY FAILURE WITH HYPOXIA Status: Acute Priority: High (4) Aspiration pneumonia SNOMED Code(s): 950337384 ICD Code: J69.0 - PNEUMONITIS DUE TO INHALATION OF FOOD AND VOMIT Status: Resolved Priority: High Qualifiers: Aspiration pneumonia type: unspecified Laterality: unspecified laterality Lung location: unspecified part of lung Qualified Code(s): J69.0 - Pneumonitis due to inhalation of food and vomit (5) Alcohol withdrawal SNOMED Code(s): 423423627 ICD Code: F10.239 - ALCOHOL DEPENDENCE WITH WITHDRAWAL, UNSPECIFIED Status: Resolved Priority: High Qualifiers: Complication of substance-induced condition: with unspecified complication Qualified Code(s): F10.239 - Alcohol dependence with withdrawal, unspecified (6) CHF exacerbation SNOMED Code(s): 519465395, 05233646969416 ICD Code: I50.9 - HEART FAILURE, UNSPECIFIED Status: Acute Priority: High Qualifiers: Heart failure type: unspecified Qualified Code(s): I50.9 - Heart failure, unspecified (7) History of MRSA infection SNOMED Code(s): 454941639, 632937452 ICD Code: Z86.14 - PERSONAL HISTORY OF METHICILLIN RESIS STAPH INFECTION Status: Chronic Priority: Low (8) History of hepatitis C SNOMED Code(s): 23326769689849, [id number] ICD Code: Z86.19 - PERSONAL HISTORY OF OTHER INFECTIOUS AND PARASITIC DISEASES Status: Chronic Priority: Low (9) Type 2 diabetes mellitus SNOMED Code(s): 90155858 ICD Code: E11.9 - TYPE 2 DIABETES MELLITUS WITHOUT COMPLICATIONS Status: Chronic Priority: Medium Qualifiers: Diabetes mellitus middle or intermediate school principal insulin use: without middle or intermediate school principal use Diabetes mellitus complication status: with neurologic complications (10) Wernicke encephalopathy SNOMED Code(s): 34875615 ICD Code: E51.2 - WERNICKE'S ENCEPHALOPATHY Status: Chronic Priority: High (11) Atrial fibrillation SNOMED Code(s): 35253171 ICD Code: I48.91 - UNSPECIFIED ATRIAL FIBRILLATION Status: Chronic Priority: Medium Qualifiers: Atrial fibrillation type: unspecified Qualified Code(s): I48.91 - Unspecified atrial fibrillation - Patient Summary/Data Consults: Consultations 02/02/21 10:42 PT Evaluation and Treatment [CONS] Routine Labs Pending at D/C: None Recommended Follow-up Testing/Procedures: Follow-up with primary care provider within 7 to 10 days of discharge, sooner if needed. -Patient was discharged on home Lasix. -Patient's directed to weigh himself daily and record this in a journal. Please review this journal. -Patient's home magnesium supplementation was increased. Please monitor this. -Patient's potassium supplementation was increased. Please monitor this. -Patient's home diltiazem dosing was increased due to A. fib with RVR -Patient has been requiring 2 L of oxygen and will be discharged on this. Please monitor and adjust accordingly Follow-up with cardiology as scheduled Hospital Course: This is a 60-year-old male who presented to our ED on 01-30-2021 with right leg pain and swelling. In the ED he was noted to be in A. fib with RVR. He does have a history of chronic A. fib and is on Xarelto. His rate is generally controlled with metoprolol and Cardizem. He was concerned that his right leg was swollen and that he may have a blood clot. Right lower extremity duplex ultrasound was obtained showing no findings concerning for DVT. Twelve-lead EKG in ED showed A. fib with a rate of 151 and he was given IV push Cardizem followed by a Cardizem drip. He was switched to PO meds with good rate control. He does carry history of chronic alcohol abuse and he was started on CIWA protocol. At his worst CIWA score was 7. He was completely detoxed and all subsequent medications for this were discontinued. Patient does have symptoms concerning for Warnicke's encephalopathy. He does have difficulty with ambulation. He has been working with PT and OT who are recommending SNF placement. He was noted to have an aspiration PNA while here. He was started on Zosyn and vancomycin and ultimately switched to Unasyn. He completed 10 days of antibiotic treatment and this was discontinued. His magnesium was low while here despite patients home supplementation. This was increased to 800mg BID. PCP should follow-up on this. His potassium supplementation was increased to 40meq as well. Prior echo report from [facility] was obtained and appears to be from November 2020. At that time there is noted to be mild left ventricular hypertrophy with an EF of 45% and global hypokinesis of the left ventricular wall segments. Grade 3 diastolic dysfunction was noted. Left atrium was noted to be moderately dilated and right atrium was noted to be mildly dilated. There is mild mitral regurgitation and mild tricuspid valve regurgitation with an RSVP measuring 49.9 mmHg. Unfortunately between the detox episode and treatment for aspiration PNA, combined with the patients prior heart failure, he did become fluid overloaded. He was diuresed utilizing BID 40mg lasix via IVP. He will be discharged on 40mg BID PO Lasix. He will also be discharged on Cardizem CD 360mg PO daily, 40mEq daily potassium and 400mg BID magnesium as mention prior. He was also prescribed PRN tylenol for pain and melatonin supplementation for sleep aid.All other home medications were continued. He was accepted at [facility]. An outpatient cardiology appt. has been made. He should follow-up with his PCP within 7-10 days of discharge, sooner if needed. He was instructed to take his weight daily and record it in a journal. He should contact his PCP if he notices a 3lb weight gain in 1 day or a 5lb weight gain in 1 week. He was advised to follow-up with his primary care provider or return to the ED should symptoms return or worsen. He was discharged on a sodium and 1.5L fluid restriction. - Patient Instructions Diet: Heart Healthy Diet, Low Sodium, Fluid Restriction, Diabetic Diet Fluid Restriction: 1500 mL Activity: As Tolerated Driving: Do Not Drive Showering/Bathing: May Shower Notify Provider of: Fever, Increased Pain, Nausea and/or Vomiting Other/Special Instructions: Follow-up with primary care provider within 7 to 10 days of discharge, sooner if needed. Follow-up with cardiology as scheduled. Due to your baseline heart failure we are recommending a 1.5 L fluid restriction and sodium restriction at discharge. This is in addition to your diabetic diet. PT/OT to continue at [facility]. Continue to wear your oxygen as directed. You are currently on 2 L. Resume home medications as directed. Take all new medications as prescribed. Check your weight daily. Record this in a journal and bring this journal with to all medical appointments. Contact your primary care provider should you notice a 3 pound weight gain in 1 day or 5 pound weight gain in 1 week. Should symptoms return or worsen contact primary care provider return the emergency room. - Discharge Plan *PRESCRIPTION DRUG MONITORING PROGRAM REVIEWED*: No *COPY OF PRESCRIPTION DRUG MONITORING REPORT IN PATIENT MCKENZIE: No Prescriptions/Med Rec: Diltiazem [Cardizem CD] 360 mg PO DAILY #60 cap.er Potassium Chloride [Klor-Con M20] 40 meq PO 1700 #30 tab.er Furosemide [Lasix] 40 mg PO 0600,1500 #60 tablet Magnesium Oxide 800 mg PO BID #50 tablet Melatonin 6 mg PO BEDTIME PRN #20 tablet PRN Reason: Sleep Acetaminophen [Tylenol] 650 mg PO Q4H PRN #20 tablet PRN Reason: Pain (Mild 1-3)/fever Home Medications: Home Meds Omeprazole 20 mg PO DAILY 07/07/16 [History] Folic Acid 1 mg PO DAILY 09/26/17 [History] Metoprolol Tartrate 75 mg PO BID 09/26/17 [History] Thiamine [Vitamin B-1] 200 mg PO DAILY 09/26/17 [History] Cholecalciferol (Vitamin D3) [Vitamin D] 5,000 unit PO DAILY 01/09/19 [History] Multivitamin [Multivitamins] 1 each PO DAILY 01/09/19 [History] Rivaroxaban [Xarelto] 20 mg PO DAILY 01/09/19 [History] atorvaSTATin [Lipitor] 40 mg PO BEDTIME 01/09/19 [History] metFORMIN HCl [Metformin HCl] 500 mg PO BID 07/25/19 [History] Gabapentin [Neurontin] 600 mg PO BEDTIME #30 tab 11/20/20 [Rx] Acetaminophen [Tylenol] 650 mg PO Q4H PRN #20 tablet 02/10/21 [Rx] Diltiazem [Cardizem CD] 360 mg PO DAILY #60 cap.er 02/10/21 [Rx] Furosemide [Lasix] 40 mg PO 0600,1500 #60 tablet 02/10/21 [Rx] Magnesium Oxide 800 mg PO BID #50 tablet 02/10/21 [Rx] Melatonin 6 mg PO BEDTIME PRN #20 tablet 02/10/21 [Rx] Potassium Chloride [Klor-Con M20] 40 meq PO 1700 #30 tab.er 02/10/21 [Rx] Oxygen Therapy Mode: Nasal Cannula Oxygen Flow Rate (L/min): 2 Maintain SpO2% greater than: 90 Patient Handouts: Alcohol Use Disorder, Chronic Obstructive Pulmonary Disease, Heart Failure Action Plan Referrals: Fatemeh Monk MD [Ordering Only Provider] - 02/19/21 9:40 am (Please arrive at 9:15 this appt. is in [facility] time (Zeinab Chong NP is who you will be seeing) This appt. is for Cardiology.) Isaiah White MD [Ordering Only Provider] - 02/15/21 4:30 pm (Please check-in by 4:15pm.) - Discharge Summary/Plan Comment DC Time >30 min.: Yes (45 mins ) - General Info Date of Service: 02/10/21 Admission Dx/Problem (Free Text: Atrial fibrillation with RVR. Functional Status: Reports: Pain Controlled, Tolerating Diet, Ambulating, Urinating. Denies: New Symptoms - Review of Systems General: Reports: Weakness. Denies: Fever, Fatigue, Malaise, Chills HEENT: Reports: No Symptoms. Denies: Headaches, Sore Throat Pulmonary: Reports: No Symptoms. Denies: Shortness of Breath, Cough, Sputum, Wheezing Cardiovascular: Reports: Dyspnea on Exertion, Edema. Denies: Chest Pain, Palpitations Gastrointestinal: Reports: No Symptoms. Denies: Abdominal Pain, Constipation, Diarrhea, Nausea, Vomiting Genitourinary: Reports: No Symptoms. Denies: Pain Musculoskeletal: Reports: No Symptoms Skin: Reports: No Symptoms. Denies: Cyanosis Neurological: Reports: Confusion (at times ), Difficulty Walking, Weakness, Gait Disturbance. Denies: Dizziness, Headache, Numbness, Tingling Psychiatric: Reports: No Symptoms - Patient Data Vitals - Most Recent: Last Vital Signs Temp 98.5 F 02/10/21 11:42 Pulse 82 02/10/21 11:42 Resp 16 02/10/21 11:42 BP 95/65 02/10/21 11:42 Pulse Ox 93 L 02/10/21 11:42 Weight - Most Recent: 244 lb 8 oz I&O - Last 24 hours: Intake & Output 02/09/21 02/10/21 02/10/21 22:59 06:59 14:59 Intake Total 1120 320 300 Output Total 825 275 Balance 295 45 300 Lab Results - Last 24 hrs: Laboratory Results - last 24 hr 02/09/21 02/10/21 02/10/21 Range/Units 11:05 05:35 05:35 WBC 7.48 (4.23-9.07) K/mm3 RBC 3.34 L (4.63-6.08) M/mm3 Hgb 9.7 L (13.7-17.5) gm/dl Hct 30.6 L (40.1-51.0) % MCV 91.6 (79.0-92.2) fl MCH 29.0 (25.7-32.2) pg MCHC 31.7 L (32.2-35.5) g/dl RDW Std Deviation 52.5 H (35.1-43.9) fL Plt Count 323 D (163-337) K/mm3 MPV 8.8 L (9.4-12.3) fl Neut % (Auto) 64.2 (34.0-67.9) % Lymph % (Auto) 17.2 L (21.8-53.1) % [place] % (Auto) 11.9 (5.3-12.2) % Eos % (Auto) 5.1 (0.8-7.0) Baso % (Auto) 0.4 (0.1-1.2) % Neut # (Auto) 4.80 (1.78-5.38) K/mm3 Lymph # (Auto) 1.29 L (1.32-3.57) K/mm3 [place] # (Auto) 0.89 H (0.30-0.82) K/mm3 Eos # (Auto) 0.38 (0.04-0.54) K/mm3 Baso # (Auto) 0.03 (0.01-0.08) K/mm3 Sodium 140 (136-145) mEq/L Potassium 4.0 (3.5-5.1) mEq/L Chloride 104 (98-107) mEq/L Carbon Dioxide 31 (21-32) mEq/L Anion Gap 9.0 (5-15) BUN 10 (7-18) mg/dL Creatinine 0.9 (0.7-1.3) mg/dL Est Cr Clr Drug Dosing 83.39 mL/min Estimated GFR (MDRD) > 60 (>60) mL/min BUN/Creatinine Ratio 11.1 L (14-18) Glucose 93 (70-99) mg/dL Calcium 8.7 (8.5-10.1) mg/dL Magnesium 1.7 L (1.8-2.4) mg/dL Gastric Occult Blood Positive H (Negative) Med Orders - Current: Current Medications Acetaminophen (Acetaminophen 325 Mg Tab) 650 mg PO Q4H PRN PRN Reason: Pain (Mild 1-3)/fever Last Admin: 02/09/21 02:21 Dose: 650 mg Documented by: Atorvastatin Calcium (Atorvastatin 40 Mg Tab) 40 mg PO BEDTIME [facility] Last Admin: 02/09/21 20:06 Dose: 40 mg Documented by: Cholecalciferol (Cholecalciferol (Vitamin D3) 5,000 Unit Cap) 5,000 unit PO DAILY [facility] Last Admin: 02/10/21 08:48 Dose: 5,000 unit Documented by: Diltiazem HCl (Diltiazem Ir 60 Mg Tab) 120 mg PO Q8H [facility] Last Admin: 02/10/21 11:02 Dose: 120 mg Documented by: Furosemide (Furosemide 40 Mg/4 Ml Vial) 40 mg IVPUSH BIDDIURETIC [facility] Last Admin: 02/10/21 05:27 Dose: 40 mg Documented by: Gabapentin (Gabapentin 600 Mg Tab) 600 mg PO BEDTIME [facility] Last Admin: 02/09/21 20:06 Dose: 600 mg Documented by: Hydromorphone HCl (Hydromorphone 0.5 Mg/0.5 Ml Syringe) 0.5 mg IVPUSH Q1H PRN PRN Reason: Pain (moderate 4-6) Last Admin: 02/09/21 20:14 Dose: 0.5 mg Documented by: Magnesium Oxide (Magnesium Oxide 400 Mg Tab) 800 mg PO BID [facility] Last Admin: 02/10/21 08:49 Dose: 800 mg Documented by: Melatonin (Melatonin 3 Mg Tab) 6 mg PO BEDTIME PRN PRN Reason: Sleep Last Admin: 02/09/21 20:06 Dose: 6 mg Documented by: Metoprolol Tartrate (Metoprolol Tartrate 25 Mg Tab) 75 mg PO Q12HR [facility] Last Admin: 02/10/21 08:49 Dose: 75 mg Documented by: Ondansetron HCl (Ondansetron 4 Mg/2 Ml Sdv) 4 mg IV Q4H PRN PRN Reason: Nausea/Vomiting Oxycodone HCl (Oxycodone 5 Mg Tab) 5 mg PO Q4H PRN PRN Reason: Pain (moderate 4-6) Last Admin: 02/08/21 21:30 Dose: 5 mg Documented by: Pantoprazole Sodium (Pantoprazole 40 Mg Tab.Cr) 40 mg PO ACBREAKFAST [facility] Last Admin: 02/10/21 05:27 Dose: 40 mg Documented by: Potassium Chloride (Potassium Chloride 20 Meq Tab.Er) 40 meq PO 1700 [facility] Last Admin: 02/09/21 16:38 Dose: 40 meq Documented by: Rivaroxaban (Rivaroxaban 10 Mg Tab) 20 mg PO DAILY [facility] Last Admin: 02/10/21 08:48 Dose: 20 mg Documented by: Sodium Chloride (Sodium Chloride 0.9% 10 Ml Syringe) 10 ml FLUSH ASDIRECTED PRN PRN Reason: Keep Vein Open Last Admin: 01/30/21 10:32 Dose: 10 ml Documented by: Discontinued Medications Amoxicillin/Clavulanate Potassium (Amoxicillin/Clavulanate K 500-125 Mg Tab) 1 tab PO Q8H [facility] Last Admin: 02/04/21 06:20 Dose: 1 tab Documented by: Chlordiazepoxide HCl (Chlordiazepoxide 25 Mg Cap) 50 mg PO BID [facility] Last Admin: 02/04/21 09:42 Dose: Not Given Documented by: Chlordiazepoxide HCl (Chlordiazepoxide 25 Mg Cap) 25 mg PO BID [facility] Last Admin: 02/02/21 20:41 Dose: Not Given Documented by: Cholecalciferol (Cholecalciferol (Vitamin D3) 5,000 Unit Tab) 5,000 unit PO DAILY [facility] Last Admin: 01/30/21 14:14 Dose: Not Given Documented by: Diltiazem HCl (Diltiazem 50 Mg/10 Ml Sdv) 10 mg IVPUSH ONETIME ONE Stop: 01/30/21 10:01 Last Admin: 01/30/21 10:07 Dose: 10 mg Documented by: Diltiazem HCl (Diltiazem Ir 60 Mg Tab) 120 mg PO TID [facility] Last Admin: 02/01/21 11:40 Dose: 120 mg Documented by: Diltiazem HCl (Diltiazem Ir 60 Mg Tab) 120 mg PO Q8H [facility] Last Admin: 02/07/21 11:04 Dose: 120 mg Documented by: Diltiazem HCl (Diltiazem 50 Mg/10 Ml Sdv) 10 mg IVPUSH ONETIME ONE Stop: 02/02/21 06:00 Last Admin: 02/02/21 06:12 Dose: 10 mg Documented by: Diltiazem HCl (Diltiazem Ir 30 Mg Tab) 120 mg PO Q8H [facility] Last Admin: 02/08/21 12:05 Dose: 120 mg Documented by: Folic Acid (Folic Acid 1 Mg Tab) 1 mg PO DAILY [facility] Stop: 02/01/21 09:01 Last Admin: 02/01/21 08:21 Dose: 1 mg Documented by: Furosemide (Furosemide 20 Mg/2 Ml Vial) 20 mg IVPUSH NOW ONE Stop: 02/01/21 20:21 Last Admin: 02/01/21 20:35 Dose: 20 mg Documented by: Furosemide (Furosemide 20 Mg/2 Ml Vial) 20 mg IVPUSH NOW ONE Stop: 02/02/21 11:31 Last Admin: 02/02/21 11:33 Dose: 20 mg Documented by: Furosemide (Furosemide 20 Mg Tab) 20 mg PO DAILY [facility] Last Admin: 02/03/21 08:01 Dose: 20 mg Documented by: Furosemide (Furosemide 40 Mg/4 Ml Vial) 40 mg IVPUSH NOW ONE Stop: 02/03/21 22:46 Last Admin: 02/03/21 22:52 Dose: 40 mg Documented by: Furosemide (Furosemide 40 Mg/4 Ml Vial) 40 mg IVPUSH DAILY [facility] Last Admin: 02/04/21 09:34 Dose: 40 mg Documented by: Furosemide (Furosemide 40 Mg/4 Ml Vial) 40 mg IVPUSH BID DIAMANTE Stop: 02/05/21 23:52 Last Admin: 02/05/21 21:38 Dose: 40 mg Documented by: Haloperidol (Haloperidol 1 Mg Tab) 2 mg PO ONETIME ONE Stop: 02/01/21 09:04 Last Admin: 02/01/21 17:12 Dose: Not Given Documented by: Haloperidol (Haloperidol 1 Mg Tab) 2 mg PO ONETIME ONE Stop: 02/01/21 19:09 Last Admin: 02/02/21 05:02 Dose: Not Given Documented by: Hydromorphone HCl (Hydromorphone 1 Mg/Ml Syringe) 1 mg IVPUSH ONETIME ONE Stop: 01/30/21 10:01 Last Admin: 01/30/21 10:07 Dose: 1 mg Documented by: Hydromorphone HCl (Hydromorphone 0.5 Mg/0.5 Ml Syringe) 0.5 mg IVPUSH ONETIME ONE Stop: 01/30/21 12:01 Last Admin: 01/30/21 12:07 Dose: 0.5 mg Documented by: Diltiazem HCl 100 mg/ Sodium (Chloride) 100 mls @ 10 mls/hr IV TITRATE DIAMANTE; Protocol Last Titration: 02/03/21 11:20 Dose: 0 mg/hr, 0 mls/hr Documented by: Sodium Chloride (Normal Saline) 1,000 mls @ 125 mls/hr IV ASDIRECTED DIAMANTE Last Infusion: 01/30/21 12:08 Dose: 125 mls/hr Documented by: Sodium Chloride (Normal Saline) 1,000 mls @ 999 mls/hr IV ONETIME ONE Stop: 01/30/21 12:00 Last Admin: 01/30/21 11:00 Dose: 999 mls/hr Documented by: Magnesium Sulfate 2 gm/ Premix 50 mls @ 25 mls/hr IV ONETIME ONE Stop: 01/30/21 15:28 Last Admin: 01/30/21 14:02 Dose: 25 mls/hr Documented by: Lactated Ringer's (Ringers, Lactated) 1,000 mls @ 100 mls/hr IV ASDIRECTED [facility] Last Infusion: 01/31/21 17:35 Dose: 75 mls/hr Documented by: Lactated Ringer's (Ringers, Lactated) 1,000 mls @ 1,000 mls/hr IV .BOLUS ONE Stop: 01/31/21 09:44 Last Admin: 01/31/21 08:54 Dose: 1,000 mls/hr Documented by: Lactated Ringer's (Ringers, Lactated) 1,000 mls @ 1,000 mls/hr IV .BOLUS ONE Stop: 01/31/21 10:44 Last Admin: 01/31/21 10:10 Dose: 1,000 mls/hr Documented by: Piperacillin Sod/Tazobactam (Sod 4.5 gm/ Sodium Chloride) 100 mls @ 25 mls/hr IV Q8H [facility] Last Admin: 02/02/21 03:32 Dose: 25 mls/hr Documented by: Piperacillin Sod/Tazobactam (Sod 4.5 gm/ Sodium Chloride) 100 mls @ 200 mls/hr IV ONETIME ONE Stop: 01/31/21 12:29 Last Admin: 01/31/21 11:58 Dose: 200 mls/hr Documented by: Vancomycin HCl 2 gm/ Sodium (Chloride) 500 mls @ 250 mls/hr IV ONETIME ONE Stop: 01/31/21 13:59 Last Admin: 01/31/21 12:38 Dose: 250 mls/hr Documented by: Vancomycin HCl 1.75 gm/ Sodium (Chloride) 500 mls @ 250 mls/hr IV Q12H [facility] Stop: 02/02/21 14:00 Last Admin: 02/02/21 11:33 Dose: 250 mls/hr Documented by: Lactated Ringer's (Ringers, Lactated) 1,000 mls @ 75 mls/hr IV ASDIRECTED [facility] Last Infusion: 02/01/21 09:13 Dose: 20 mls/hr Documented by: Lactated Ringer's (Ringers, Lactated) 1,000 mls @ 20 mls/hr IV ASDIRECTED [facility] Last Admin: 02/01/21 14:00 Dose: 20 mls/hr Documented by: Magnesium Sulfate/Dextrose 1 (gm/ Premix) 100 mls @ 100 mls/hr IV ONETIME ONE Stop: 02/01/21 10:29 Last Admin: 02/01/21 09:18 Dose: 100 mls/hr Documented by: Magnesium Sulfate 2 gm/ Premix 50 mls @ 25 mls/hr IV ONETIME ONE Stop: 02/02/21 10:29 Last Admin: 02/02/21 08:17 Dose: 25 mls/hr Documented by: Magnesium Sulfate 2 gm/ Premix 50 mls @ 25 mls/hr IV ONETIME ONE Stop: 02/04/21 11:29 Last Admin: 02/04/21 09:34 Dose: 25 mls/hr Documented by: Potassium Chloride 10 meq/ (Premix) 100 mls @ 100 mls/hr IV Q1H [facility] Stop: 02/04/21 15:59 Last Admin: 02/04/21 14:42 Dose: 100 mls/hr Documented by: Ampicillin Sodium/Sulbactam (Sodium 3 gm/ Sodium Chloride) 100 mls @ 200 mls/hr IV Q6H [facility] Last Admin: 02/08/21 03:40 Dose: 200 mls/hr Documented by: Insulin Human Lispro (Insulin Lispro 100 Unit/Ml 10 Ml Vial) 0 unit SUBCUT QIDACANDBED [facility]; Protocol Last Admin: 02/04/21 17:21 Dose: Not Given Documented by: Lorazepam (Lorazepam 2 Mg/Ml Sdv) 0 mg IV ASDIRECTED [facility]; Protocol Last Admin: 02/03/21 17:52 Dose: 1 mg Documented by: Lorazepam (Lorazepam 1 Mg Tab) 1 mg PO Q1H PRN PRN Reason: Withdrawal Symptoms Last Admin: 02/01/21 11:30 Dose: 1 mg Documented by: Losartan Potassium (Losartan 25 Mg Tab) 25 mg PO DAILY [facility] Last Admin: 02/06/21 08:06 Dose: 25 mg Documented by: Magnesium Oxide (Magnesium Oxide 400 Mg Tab) 400 mg PO BID [facility] Last Admin: 02/08/21 21:09 Dose: 400 mg Documented by: Metoprolol Succinate (Metoprolol Succinate 50 Mg Tab.Er) 50 mg PO DAILY [facility] Last Admin: 01/31/21 07:24 Dose: 50 mg Documented by: Metoprolol Tartrate (Metoprolol Tartrate 50 Mg Tab) 50 mg PO Q12HR [facility] Last Admin: 02/02/21 20:40 Dose: 50 mg Documented by: Metoprolol Tartrate (Metoprolol Tartrate 50 Mg Tab) 75 mg PO Q12HR [facility] Last Admin: 02/03/21 21:21 Dose: 75 mg Documented by: Metoprolol Tartrate (Metoprolol Tartrate 50 Mg Tab) 100 mg PO Q12HR [facility] Last Admin: 02/07/21 08:15 Dose: 100 mg Documented by: Multivitamins/Minerals/Vitamin C (Multivitamin Tab) 1 tab PO ONETIME ONE Stop: 01/30/21 13:38 Last Admin: 01/30/21 14:02 Dose: 1 tab Documented by: Potassium Chloride (Potassium Chloride 20 Meq Tab.Er) 40 meq PO ONETIME ONE Stop: 02/03/21 08:38 Last Admin: 02/03/21 08:53 Dose: 40 meq Documented by: Potassium Chloride (Potassium Chloride 20 Meq Tab.Er) 40 meq PO ONETIME ONE Stop: 02/07/21 08:01 Potassium Chloride (Potassium Chloride 20 Meq Tab.Er) 40 meq PO ONETIME ONE Stop: 02/07/21 09:01 Last Admin: 02/07/21 08:16 Dose: 40 meq Documented by: Potassium Chloride (Potassium Chloride 20 Meq Tab.Er) 40 meq PO ONETIME ONE Stop: 02/07/21 12:01 Last Admin: 02/07/21 11:05 Dose: 40 meq Documented by: Potassium Chloride (Potassium Chloride 20 Meq Tab.Er) 40 meq PO ONETIME ONE Stop: 02/07/21 07:30 Last Admin: 02/07/21 07:36 Dose: 40 meq Documented by: Thiamine HCl (Thiamine 100 Mg Tab) 100 mg PO DAILY [facility] Last Admin: 02/04/21 09:35 Dose: 100 mg Documented by: Trazodone HCl (Trazodone 50 Mg Tab) 50 mg PO BEDTIME PRN PRN Reason: Sleep Last Admin: 02/06/21 21:30 Dose: 50 mg Documented by: Vancomycin HCl (Pharmacy To Dose - Vancomycin) 1 dose .XX ASDIRECTED PRN PRN Reason: RX TO DOSE VANCO - Exam Quality Assessment: Reports: Supplemental Oxygen (2.5L), DVT Prophylaxis. Denies: Urine Catheter General: Reports: Alert, Oriented (mostly), Cooperative, No Acute Distress HEENT: Reports: Pupils Equal, Pupils Reactive, Mucous Membr. Moist/[place] Neck: Reports: Supple, Trachea Midline Lungs: Reports: Normal Respiratory Effort, Decreased Breath Sounds Cardiovascular: Reports: Regular Rate, Irregular Rhythm GI/Abdominal Exam: Normal Bowel Sounds, Soft, Non-Tender, No Distention (Male) Exam: Deferred Rectal (Males) Exam: Deferred Back Exam: Reports: Normal Inspection, Full Range of Motion Extremities: Normal Inspection, Normal Range of Motion, Non-Tender, Normal Capillary Refill, Pedal Edema Skin: Reports: Warm, Dry, Intact Neurological: Reports: No New Focal Deficit Psy/Mental Status: Reports: Alert <JeanetteCan Teddy Jr - Last Filed: 02/11/21 05:54> Discharge Summary - Referral to Home Health Primary Care Physician: Geneva Gutiérrez MD - Patient Summary/Data Consults: Consultations 02/02/21 10:42 PT Evaluation and Treatment [CONS] Routine - Discharge Summary/Plan Comment Discharge Summary/Plan Comment: Case discussed in full. Agree with evaluation, assessment and plan. - Patient Data Vitals - Most Recent: Last Vital Signs Temp 98.5 F 02/10/21 11:42 Pulse 82 02/10/21 11:42 Resp 16 02/10/21 11:42 BP 95/65 02/10/21 11:42 Pulse Ox 93 L 02/10/21 11:42 I&O - Last 24 hours: Intake & Output 02/10/21 02/10/21 02/11/21 14:59 22:59 06:59 Intake Total 300 Balance 300 Lab Results - Last 24 hrs: Laboratory Results - last 24 hr 02/10/21 02/10/21 02/10/21 Range/Units 05:35 05:35 12:10 WBC 7.48 (4.23-9.07) K/mm3 RBC 3.34 L (4.63-6.08) M/mm3 Hgb 9.7 L (13.7-17.5) gm/dl Hct 30.6 L (40.1-51.0) % MCV 91.6 (79.0-92.2) fl MCH 29.0 (25.7-32.2) pg MCHC 31.7 L (32.2-35.5) g/dl RDW Std Deviation 52.5 H (35.1-43.9) fL Plt Count 323 D (163-337) K/mm3 MPV 8.8 L (9.4-12.3) fl Neut % (Auto) 64.2 (34.0-67.9) % Lymph % (Auto) 17.2 L (21.8-53.1) % [place] % (Auto) 11.9 (5.3-12.2) % Eos % (Auto) 5.1 (0.8-7.0) Baso % (Auto) 0.4 (0.1-1.2) % Neut # (Auto) 4.80 (1.78-5.38) K/mm3 Lymph # (Auto) 1.29 L (1.32-3.57) K/mm3 [place] # (Auto) 0.89 H (0.30-0.82) K/mm3 Eos # (Auto) 0.38 (0.04-0.54) K/mm3 Baso # (Auto) 0.03 (0.01-0.08) K/mm3 Sodium 140 (136-145) mEq/L Potassium 4.0 (3.5-5.1) mEq/L Chloride 104 (98-107) mEq/L Carbon Dioxide 31 (21-32) mEq/L Anion Gap 9.0 (5-15) BUN 10 (7-18) mg/dL Creatinine 0.9 (0.7-1.3) mg/dL Est Cr Clr Drug Dosing 83.39 mL/min Estimated GFR (MDRD) > 60 (>60) mL/min BUN/Creatinine Ratio 11.1 L (14-18) Glucose 93 (70-99) mg/dL Calcium 8.7 (8.5-10.1) mg/dL Magnesium 1.7 L (1.8-2.4) mg/dL SARS-CoV-2 RNA (ISABELLA) Negative (NEGATIVE) Med Orders - Current: Current Medications Discontinued Medications Acetaminophen (Acetaminophen 325 Mg Tab) 650 mg PO Q4H PRN PRN Reason: Pain (Mild 1-3)/fever Last Admin: 02/09/21 02:21 Dose: 650 mg Documented by: Amoxicillin/Clavulanate Potassium (Amoxicillin/Clavulanate K 500-125 Mg Tab) 1 tab PO Q8H [facility] Last Admin: 02/04/21 06:20 Dose: 1 tab Documented by: Atorvastatin Calcium (Atorvastatin 40 Mg Tab) 40 mg PO BEDTIME [facility] Last Admin: 02/09/21 20:06 Dose: 40 mg Documented by: Chlordiazepoxide HCl (Chlordiazepoxide 25 Mg Cap) 50 mg PO BID [facility] Last Admin: 02/04/21 09:42 Dose: Not Given Documented by: Chlordiazepoxide HCl (Chlordiazepoxide 25 Mg Cap) 25 mg PO BID [facility] Last Admin: 02/02/21 20:41 Dose: Not Given Documented by: Cholecalciferol (Cholecalciferol (Vitamin D3) 5,000 Unit Tab) 5,000 unit PO DAILY [facility] Last Admin: 01/30/21 14:14 Dose: Not Given Documented by: Cholecalciferol (Cholecalciferol (Vitamin D3) 5,000 Unit Cap) 5,000 unit PO DAILY [facility] Last Admin: 02/10/21 08:48 Dose: 5,000 unit Documented by: Diltiazem HCl (Diltiazem 50 Mg/10 Ml Sdv) 10 mg IVPUSH ONETIME ONE Stop: 01/30/21 10:01 Last Admin: 01/30/21 10:07 Dose: 10 mg Documented by: Diltiazem HCl (Diltiazem Ir 60 Mg Tab) 120 mg PO TID [facility] Last Admin: 02/01/21 11:40 Dose: 120 mg Documented by: Diltiazem HCl (Diltiazem Ir 60 Mg Tab) 120 mg PO Q8H [facility] Last Admin: 02/07/21 11:04 Dose: 120 mg Documented by: Diltiazem HCl (Diltiazem 50 Mg/10 Ml Sdv) 10 mg IVPUSH ONETIME ONE Stop: 02/02/21 06:00 Last Admin: 02/02/21 06:12 Dose: 10 mg Documented by: Diltiazem HCl (Diltiazem Ir 30 Mg Tab) 120 mg PO Q8H [facility] Last Admin: 02/08/21 12:05 Dose: 120 mg Documented by: Diltiazem HCl (Diltiazem Ir 60 Mg Tab) 120 mg PO Q8H [facility] Last Admin: 02/10/21 11:02 Dose: 120 mg Documented by: Folic Acid (Folic Acid 1 Mg Tab) 1 mg PO DAILY [facility] Stop: 02/01/21 09:01 Last Admin: 02/01/21 08:21 Dose: 1 mg Documented by: Furosemide (Furosemide 20 Mg/2 Ml Vial) 20 mg IVPUSH NOW ONE Stop: 02/01/21 20:21 Last Admin: 02/01/21 20:35 Dose: 20 mg Documented by: Furosemide (Furosemide 20 Mg/2 Ml Vial) 20 mg IVPUSH NOW ONE Stop: 02/02/21 11:31 Last Admin: 02/02/21 11:33 Dose: 20 mg Documented by: Furosemide (Furosemide 20 Mg Tab) 20 mg PO DAILY [facility] Last Admin: 02/03/21 08:01 Dose: 20 mg Documented by: Furosemide (Furosemide 40 Mg/4 Ml Vial) 40 mg IVPUSH NOW ONE Stop: 02/03/21 22:46 Last Admin: 02/03/21 22:52 Dose: 40 mg Documented by: Furosemide (Furosemide 40 Mg/4 Ml Vial) 40 mg IVPUSH DAILY [facility] Last Admin: 02/04/21 09:34 Dose: 40 mg Documented by: Furosemide (Furosemide 40 Mg/4 Ml Vial) 40 mg IVPUSH BID [facility] Stop: 02/05/21 23:52 Last Admin: 02/05/21 21:38 Dose: 40 mg Documented by: Furosemide (Furosemide 40 Mg/4 Ml Vial) 40 mg IVPUSH BIDDIURETIC [facility] Last Admin: 02/10/21 05:27 Dose: 40 mg Documented by: Gabapentin (Gabapentin 600 Mg Tab) 600 mg PO BEDTIME [facility] Last Admin: 02/09/21 20:06 Dose: 600 mg Documented by: Haloperidol (Haloperidol 1 Mg Tab) 2 mg PO ONETIME ONE Stop: 02/01/21 09:04 Last Admin: 02/01/21 17:12 Dose: Not Given Documented by: Haloperidol (Haloperidol 1 Mg Tab) 2 mg PO ONETIME ONE Stop: 02/01/21 19:09 Last Admin: 02/02/21 05:02 Dose: Not Given Documented by: Hydromorphone HCl (Hydromorphone 1 Mg/Ml Syringe) 1 mg IVPUSH ONETIME ONE Stop: 01/30/21 10:01 Last Admin: 01/30/21 10:07 Dose: 1 mg Documented by: Hydromorphone HCl (Hydromorphone 0.5 Mg/0.5 Ml Syringe) 0.5 mg IVPUSH ONETIME ONE Stop: 01/30/21 12:01 Last Admin: 01/30/21 12:07 Dose: 0.5 mg Documented by: Hydromorphone HCl (Hydromorphone 0.5 Mg/0.5 Ml Syringe) 0.5 mg IVPUSH Q1H PRN PRN Reason: Pain (moderate 4-6) Last Admin: 02/09/21 20:14 Dose: 0.5 mg Documented by: Diltiazem HCl 100 mg/ Sodium (Chloride) 100 mls @ 10 mls/hr IV TITRATE DIAMANTE; Protocol Last Titration: 02/03/21 11:20 Dose: 0 mg/hr, 0 mls/hr Documented by: Sodium Chloride (Normal Saline) 1,000 mls @ 125 mls/hr IV ASDIRECTED DIAMANTE Last Infusion: 01/30/21 12:08 Dose: 125 mls/hr Documented by: Sodium Chloride (Normal Saline) 1,000 mls @ 999 mls/hr IV ONETIME ONE Stop: 01/30/21 12:00 Last Admin: 01/30/21 11:00 Dose: 999 mls/hr Documented by: Magnesium Sulfate 2 gm/ Premix 50 mls @ 25 mls/hr IV ONETIME ONE Stop: 01/30/21 15:28 Last Admin: 01/30/21 14:02 Dose: 25 mls/hr Documented by: Lactated Ringer's (Ringers, Lactated) 1,000 mls @ 100 mls/hr IV ASDIRECTED DIAMANTE Last Infusion: 01/31/21 17:35 Dose: 75 mls/hr Documented by: Lactated Ringer's (Ringers, Lactated) 1,000 mls @ 1,000 mls/hr IV .BOLUS ONE Stop: 01/31/21 09:44 Last Admin: 01/31/21 08:54 Dose: 1,000 mls/hr Documented by: Lactated Ringer's (Ringers, Lactated) 1,000 mls @ 1,000 mls/hr IV .BOLUS ONE Stop: 01/31/21 10:44 Last Admin: 01/31/21 10:10 Dose: 1,000 mls/hr Documented by: Piperacillin Sod/Tazobactam (Sod 4.5 gm/ Sodium Chloride) 100 mls @ 25 mls/hr IV Q8H [facility] Last Admin: 02/02/21 03:32 Dose: 25 mls/hr Documented by: Piperacillin Sod/Tazobactam (Sod 4.5 gm/ Sodium Chloride) 100 mls @ 200 mls/hr IV ONETIME ONE Stop: 01/31/21 12:29 Last Admin: 01/31/21 11:58 Dose: 200 mls/hr Documented by: Vancomycin HCl 2 gm/ Sodium (Chloride) 500 mls @ 250 mls/hr IV ONETIME ONE Stop: 01/31/21 13:59 Last Admin: 01/31/21 12:38 Dose: 250 mls/hr Documented by: Vancomycin HCl 1.75 gm/ Sodium (Chloride) 500 mls @ 250 mls/hr IV Q12H [facility] Stop: 02/02/21 14:00 Last Admin: 02/02/21 11:33 Dose: 250 mls/hr Documented by: Lactated Ringer's (Ringers, Lactated) 1,000 mls @ 75 mls/hr IV ASDIRECTED [facility] Last Infusion: 02/01/21 09:13 Dose: 20 mls/hr Documented by: Lactated Ringer's (Ringers, Lactated) 1,000 mls @ 20 mls/hr IV ASDIRECTED [facility] Last Admin: 02/01/21 14:00 Dose: 20 mls/hr Documented by: Magnesium Sulfate/Dextrose 1 (gm/ Premix) 100 mls @ 100 mls/hr IV ONETIME ONE Stop: 02/01/21 10:29 Last Admin: 02/01/21 09:18 Dose: 100 mls/hr Documented by: Magnesium Sulfate 2 gm/ Premix 50 mls @ 25 mls/hr IV ONETIME ONE Stop: 02/02/21 10:29 Last Admin: 02/02/21 08:17 Dose: 25 mls/hr Documented by: Magnesium Sulfate 2 gm/ Premix 50 mls @ 25 mls/hr IV ONETIME ONE Stop: 02/04/21 11:29 Last Admin: 02/04/21 09:34 Dose: 25 mls/hr Documented by: Potassium Chloride 10 meq/ (Premix) 100 mls @ 100 mls/hr IV Q1H [facility] Stop: 02/04/21 15:59 Last Admin: 02/04/21 14:42 Dose: 100 mls/hr Documented by: Ampicillin Sodium/Sulbactam (Sodium 3 gm/ Sodium Chloride) 100 mls @ 200 mls/hr IV Q6H [facility] Last Admin: 02/08/21 03:40 Dose: 200 mls/hr Documented by: Insulin Human Lispro (Insulin Lispro 100 Unit/Ml 10 Ml Vial) 0 unit SUBCUT QIDACANDBED [facility]; Protocol Last Admin: 02/04/21 17:21 Dose: Not Given Documented by: Lorazepam (Lorazepam 2 Mg/Ml Sdv) 0 mg IV ASDIRECTED [facility]; Protocol Last Admin: 02/03/21 17:52 Dose: 1 mg Documented by: Lorazepam (Lorazepam 1 Mg Tab) 1 mg PO Q1H PRN PRN Reason: Withdrawal Symptoms Last Admin: 02/01/21 11:30 Dose: 1 mg Documented by: Losartan Potassium (Losartan 25 Mg Tab) 25 mg PO DAILY [facility] Last Admin: 02/06/21 08:06 Dose: 25 mg Documented by: Magnesium Oxide (Magnesium Oxide 400 Mg Tab) 400 mg PO BID [facility] Last Admin: 02/08/21 21:09 Dose: 400 mg Documented by: Magnesium Oxide (Magnesium Oxide 400 Mg Tab) 800 mg PO BID [facility] Last Admin: 02/10/21 08:49 Dose: 800 mg Documented by: Melatonin (Melatonin 3 Mg Tab) 6 mg PO BEDTIME PRN PRN Reason: Sleep Last Admin: 02/09/21 20:06 Dose: 6 mg Documented by: Metoprolol Succinate (Metoprolol Succinate 50 Mg Tab.Er) 50 mg PO DAILY [facility] Last Admin: 01/31/21 07:24 Dose: 50 mg Documented by: Metoprolol Tartrate (Metoprolol Tartrate 50 Mg Tab) 50 mg PO Q12HR [facility] Last Admin: 02/02/21 20:40 Dose: 50 mg Documented by: Metoprolol Tartrate (Metoprolol Tartrate 50 Mg Tab) 75 mg PO Q12HR [facility] Last Admin: 02/03/21 21:21 Dose: 75 mg Documented by: Metoprolol Tartrate (Metoprolol Tartrate 50 Mg Tab) 100 mg PO Q12HR [facility] Last Admin: 02/07/21 08:15 Dose: 100 mg Documented by: Metoprolol Tartrate (Metoprolol Tartrate 25 Mg Tab) 75 mg PO Q12HR [facility] Last Admin: 02/10/21 08:49 Dose: 75 mg Documented by: Multivitamins/Minerals/Vitamin C (Multivitamin Tab) 1 tab PO ONETIME ONE Stop: 01/30/21 13:38 Last Admin: 01/30/21 14:02 Dose: 1 tab Documented by: Ondansetron HCl (Ondansetron 4 Mg/2 Ml Sdv) 4 mg IV Q4H PRN PRN Reason: Nausea/Vomiting Oxycodone HCl (Oxycodone 5 Mg Tab) 5 mg PO Q4H PRN PRN Reason: Pain (moderate 4-6) Last Admin: 02/08/21 21:30 Dose: 5 mg Documented by: Pantoprazole Sodium (Pantoprazole 40 Mg Tab.Cr) 40 mg PO ACBREAKFAST [facility] Last Admin: 02/10/21 05:27 Dose: 40 mg Documented by: Potassium Chloride (Potassium Chloride 20 Meq Tab.Er) 40 meq PO ONETIME ONE Stop: 02/03/21 08:38 Last Admin: 02/03/21 08:53 Dose: 40 meq Documented by: Potassium Chloride (Potassium Chloride 20 Meq Tab.Er) 40 meq PO ONETIME ONE Stop: 02/07/21 08:01 Potassium Chloride (Potassium Chloride 20 Meq Tab.Er) 40 meq PO ONETIME ONE Stop: 02/07/21 09:01 Last Admin: 02/07/21 08:16 Dose: 40 meq Documented by: Potassium Chloride (Potassium Chloride 20 Meq Tab.Er) 40 meq PO ONETIME ONE Stop: 02/07/21 12:01 Last Admin: 02/07/21 11:05 Dose: 40 meq Documented by: Potassium Chloride (Potassium Chloride 20 Meq Tab.Er) 40 meq PO ONETIME ONE Stop: 02/07/21 07:30 Last Admin: 02/07/21 07:36 Dose: 40 meq Documented by: Potassium Chloride (Potassium Chloride 20 Meq Tab.Er) 40 meq PO 1700 [facility] Last Admin: 02/09/21 16:38 Dose: 40 meq Documented by: Rivaroxaban (Rivaroxaban 10 Mg Tab) 20 mg PO DAILY [facility] Last Admin: 02/10/21 08:48 Dose: 20 mg Documented by: Sodium Chloride (Sodium Chloride 0.9% 10 Ml Syringe) 10 ml FLUSH ASDIRECTED PRN PRN Reason: Keep Vein Open Last Admin: 01/30/21 10:32 Dose: 10 ml Documented by: Thiamine HCl (Thiamine 100 Mg Tab) 100 mg PO DAILY [facility] Last Admin: 02/04/21 09:35 Dose: 100 mg Documented by: Trazodone HCl (Trazodone 50 Mg Tab) 50 mg PO BEDTIME PRN PRN Reason: Sleep Last Admin: 02/06/21 21:30 Dose: 50 mg Documented by: Vancomycin HCl (Pharmacy To Dose - Vancomycin) 1 dose .XX ASDIRECTED PRN PRN Reason: RX TO DOSE VANCO
== END 2021-02-10 13:55 | DRG 896 ==
LOC: JD.ED 09:27 → JD.ICU 12:58 → JD.MS 02-04 16:41
PROVIDERS: ADMIT Hospitalist; ATTEND Hospitalist
DX: F10.239 Alcohol dependence with withdrawal, unspecified (principal); M79.604 Pain in right leg; J96.01 Acute respiratory failure with hypoxia; I10 Essential (primary) hypertension; J69.0 Pneumonitis due to inhalation of food and vomit; F10.20 Alcohol dependence, uncomplicated; I50.23 Acute on chronic systolic (congestive) heart failure; I48.20 Chronic atrial fibrillation, unspecified; R65.10 Systemic inflammatory response syndrome (SIRS) of non-infectious origin without acute organ dysfunction; E51.2 Wernicke's encephalopathy; L03.115 Cellulitis of right lower limb; Z20.822 Contact with and (suspected) exposure to COVID-19; E78.00 Pure hypercholesterolemia, unspecified; J44.9 Chronic obstructive pulmonary disease, unspecified; K21.9 Gastro-esophageal reflux disease without esophagitis; E66.9 Obesity, unspecified; E87.6 Hypokalemia; E11.9 Type 2 diabetes mellitus without complications; I08.1 Rheumatic disorders of both mitral and tricuspid valves; I11.0 Hypertensive heart disease with heart failure; Z79.01 Long term (current) use of anticoagulants; Z86.14 Personal history of Methicillin resistant Staphylococcus aureus infection; Z86.19 Personal history of other infectious and parasitic diseases; Z87.442 Personal history of urinary calculi; Z87.891 Personal history of nicotine dependence; Z79.84 Long term (current) use of oral hypoglycemic drugs; Z79.899 Other long term (current) drug therapy; Z68.37 Body mass index [BMI] 37.0-37.9, adult
CPT/HCPCS: 36415; 80053; 80307; 83735; 84484; 85025; 87635; 93005; 93971; 96374; 96375; 96376; 99285; J1170 ×2; J3490 ×2; J7030 ×2; 71045; 71045-26; 71046; 71046-26; 80048; 81001; 82271; 82947; 83605; 83880; 84132; 84443; 87040; 93010; 94760; 94761; 97116-GP; 97162-GP; 97530-GP; 99223; 99233; 99239; 99284; A9270-GY; J0295; J1940; J2060; J2543; J3370; J3475; J3480; J7040; J7120; U0002

== ENCOUNTER 2021-02-26 11:15 | Inpatient (IN) | payer OTHER, MEDICAID ==
[2021-02-26] MEDS ORDERED: Metoprolol Tartrate 5 MG/5 ML SDV IVPUSH ONE ×2 (11:47→12:19)
[2021-02-26] MEDS ORDERED: Metoclopramide 10 MG/2 ML SDV IVPUSH ONE (11:49)
[2021-02-26] MEDS: Sodium Chloride 0.9% 1,000 ML IV SCH ×2 (11:57→16:09)
[2021-02-26] MEDS: Sodium Chloride 0.9% 10 ML Syringe FLUSH PRN (11:58)
--- NOTE | 2021-02-26 12:26 | EDM.PDOC ---
ED HPI GENERAL MEDICAL PROBLEM - General Chief Complaint: Cardiovascular Problem Stated Complaint: [facility] Time Seen by Provider: 02/26/21 11:21 Source of Information: Reports: Patient History Limitations: Reports: No Limitations - History of Present Illness INITIAL COMMENTS - FREE TEXT/NARRATIVE: 60-year-old male presents the emergency department from the [facility] via [facility] for tachycardia. Per the patient's report he states he was just discharged from the hospital on 2021-02-23. He states he was hospitalized in [place] at that time due to a high heart rate. Of note, patient does have history of chronic atrial fib. He states he checked himself out of [facility], he was there for rehab for left hip pain, on Monday and has been drinking since. He states he drinks 1/5 of hard alcohol daily. He states his last drink was last night. He is not interested in treatment for his alcohol addiction as he states he has been in treatment approximately 20 times and he has not been able to stop nor does he want to stop. He states that the majority of the times that he did go to treatment it was just because he did not have a place to live. Was seen at the [facility] this morning for a follow-up evaluation and found to be in sinus tachycardia at a rate to 1 40-1 50s. He denies any chest pain or shortness of breath. While he was at the [facility] he did receive 3 baby aspirin, he also took his Xarelto, Metformin and Protonix at that time. He does admit to feeling tremulous and nauseated. He denies any recent fever, chills, vomiting, diarrhea or constipation. He denies any headache, sore throat, shortness of breath or abdominal pain. He denies any issues with his bowel or bladder. He is alert and oriented x3. Treatments [employer]: Reports: Oxygen - Related Data Allergies Allergy/AdvReac Type Severity Reaction Status Date / Time No Known Allergies Allergy Verified 02/26/21 11:32 Home Meds: Home Meds Omeprazole 20 mg PO DAILY 07/07/16 [History] Folic Acid 1 mg PO DAILY 09/26/17 [History] Metoprolol Tartrate 75 mg PO BID 09/26/17 [History] Thiamine [Vitamin B-1] 200 mg PO DAILY 09/26/17 [History] Cholecalciferol (Vitamin D3) [Vitamin D] 5,000 unit PO DAILY 01/09/19 [History] Multivitamin [Multivitamins] 1 each PO DAILY 01/09/19 [History] Rivaroxaban [Xarelto] 20 mg PO DAILY 01/09/19 [History] atorvaSTATin [Lipitor] 40 mg PO BEDTIME 01/09/19 [History] metFORMIN HCl [Metformin HCl] 500 mg PO BID 07/25/19 [History] Gabapentin [Neurontin] 600 mg PO BEDTIME #30 tab 11/20/20 [Rx] Acetaminophen [Tylenol] 650 mg PO Q4H PRN #20 tablet 02/10/21 [Rx] Diltiazem [Cardizem CD] 360 mg PO DAILY #60 cap.er 02/10/21 [Rx] Furosemide [Lasix] 40 mg PO 0600,1500 #60 tablet 02/10/21 [Rx] Magnesium Oxide 800 mg PO BID #50 tablet 02/10/21 [Rx] Melatonin 6 mg PO BEDTIME PRN #20 tablet 02/10/21 [Rx] Potassium Chloride [Klor-Con M20] 40 meq PO 1700 #30 tab.er 02/10/21 [Rx] Past Medical History - Past Health History Medical/Surgical History: Denies Medical/Surgical History HEENT History: Reports: Cataract Cardiovascular History: Reports: Afib, High Cholesterol, Hypertension Other Cardiovascular History: hx/o a-fib/RVR Respiratory History: Reports: COPD Other Respiratory History: 07/24/16 admitted with pneumonia Gastrointestinal History: Reports: GERD Genitourinary History: Reports: Renal Calculus Musculoskeletal History: Reports: Fracture Other Musculoskeletal History: right foot fracture 20 yrs ago; Fx of L wrist 2018 Neurological History: Reports: Other (See Below) Other Neuro History: seizures with ETOH withdrawal Psychiatric History: Reports: Addiction Other Psychiatric History: alcohol Endocrine/Metabolic History: Reports: Diabetes, Type II, Obesity/BMI 30+ Hematologic History: Reports: Anticoagulation Therapy Other Immunologic History: pt states that a doctor told him he had hep c once but his last check was ok Oncologic (Cancer) History: Reports: None Dermatologic History: Reports: None - Infectious Disease History Infectious Disease History: Reports: Chicken Pox, Hepatitis C, MRSA Other Infectious Disease History: Hep C per [facility] hospitalist/[place], 06/2016. - Past Surgical History Head Surgeries/Procedures: Reports: None HEENT Surgical History: Reports: None Cardiovascular Surgical History: Reports: None Respiratory Surgical History: Reports: None GI Surgical History: Reports: None Endocrine Surgical History: Reports: None Musculoskeletal Surgical History: Reports: ORIF, Other (See Below) Other Musculoskeletal Surgeries/Procedures:: right toe -hammer toe surgery, left wrist surgery; BUNIONECTOMY Social & Family History - Family History Family Medical History: No Pertinent Family History Neurological: Reports: CVA Endocrine/Metabolic: Reports: Diabetes, type II Hematologic: Reports: Other (See Below) Other Hematologic Family History: hepatitias c Immunologic: Reports: None Oncologic: Reports: Leukemia - Tobacco Use Tobacco Use Status *Q: Former Tobacco User Years of Tobacco use: 50 Packs/Tins Daily: 1 Used Tobacco, but Quit: Yes Month/Year Tobacco Last Used: 01/2018 Second Hand Smoke Exposure: No - Caffeine Use Caffeine Use: Reports: None - Alcohol Use Days Per Week of Alcohol Use: 7 Number of Drinks Per Day: 10 Total Drinks Per Week: 70 Date of Last Drink: 02/26/21 - Recreational Drug Use Recreational Drug Use: No - Living Situation & Occupation Living situation: Reports: , Alone Occupation: Unemployed ED ROS GENERAL - Review of Systems Review Of Systems: Comprehensive ROS is negative, except as noted in HPI. ED EXAM, GENERAL - Physical Exam Exam: See Below Exam Limited By: No Limitations General Appearance: Alert, WD/WN, No Apparent Distress Eye Exam: Bilateral Eye: EOMI Ears: Normal External Exam, Hearing Grossly Normal Nose: Normal Inspection Throat/Mouth: Normal Inspection, Normal Lips, Normal Voice, No Airway Compromise Head: Atraumatic Neck: Normal Inspection, Supple Respiratory/Chest: No Respiratory Distress, Lungs Clear, Normal Breath Sounds, No Accessory Muscle Use, Chest Non-Tender Cardiovascular: Normal Peripheral Pulses, No Edema, No Murmur, Irregularly Irregular Peripheral Pulses: 2+: Radial (L), Radial (R) GI/Abdominal: Normal Bowel Sounds, Soft, Non-Tender, No Distention (Male) Exam: Deferred Rectal (Males) Exam: Deferred Back Exam: Normal Inspection, Full Range of Motion Extremities: Normal Inspection, Non-Tender, No Pedal Edema, Normal Capillary Refill, Limited Range of Motion (Left lower extremity due to chronic hip pain) Neurological: Alert, Oriented, Normal Cognition Psychiatric: Normal Affect, Normal Mood Skin Exam: Warm, Dry, Intact, Normal Color, No Rash Lymphatic: No Adenopathy #1 Interpretation EKG Date: 02/26/21 Time: 12:05 Rhythm: NSR Rate (Beats/Min): 140 [place]: Normal P-Wave: Present QRS: Normal ST-T: Normal QT: Normal EKG Interpretation Comments: Per Dr. English interpretation: Tachycardia at 140; borderline low voltage, extremity leads; borderline prolonged QT interval Course - Vital Signs Text/Narrative:: As stated above, the patient presents with tachycardia, nausea, and tremors. He has not taken his metoprolol today and it appears he takes 75 mg twice daily. Initial EKG showed a sinus tachycardia with a rate of 140. I have ordered labs to include a CBC, CMP, C-reactive protein, magnesium level, troponin, proBNP, urine drug screen, blood alcohol level, TSH, and a urinalysis with micro and culture if indicated. I have also ordered for him to receive metoprolol 5 mg IV x1 dose. He will receive maintenance fluids of normal saline 150 mL's per hour, and Reglan 5 mg IV for nausea. Last Recorded V/S: Last Vital Signs Temp 98.0 F 02/26/21 17:00 Pulse 120 H 02/26/21 19:00 Resp 19 02/26/21 17:00 BP 130/90 02/26/21 19:00 Pulse Ox 98 02/26/21 17:06 - Orders/Labs/Meds Orders: Active Orders 24 hr Category Date Time Status DRUG SCREEN, URINE [URCHEM] Stat Lab 02/26/21 11:45 Ordered UA RFX BONNIE AND CULT IF INDIC [URIN] Stat Lab 02/26/21 11:45 Ordered Diltiazem [Cardizem] 100 mg Med 02/26/21 15:30 Active Sodium Chloride 0.9% [Normal Saline] 100 ml IV TITRATE Sodium Chloride 0.9% [Normal Saline] 1,000 ml Med 02/26/21 12:00 Active IV ASDIRECTED Sodium Chloride 0.9% [Saline Flush] Med 02/26/21 11:44 Active 10 ml FLUSH ASDIRECTED PRN Saline Lock Insert [OM.PC] Stat Oth 02/26/21 11:44 Ordered Medication Orders Acetaminophen (Acetaminophen 325 Mg Tab) 650 mg PO Q4H PRN PRN Reason: Pain (Mild 1-3)/fever Diltiazem HCl (Diltiazem 120 Mg Cap.Cd) 360 mg PO DAILY DIAMANTE Folic Acid (Folic Acid 1 Mg Tab) 1 mg PO DAILY DIAMANTE Stop: 03/01/21 09:01 Gabapentin (Gabapentin 600 Mg Tab) 600 mg PO BEDTIME DIAMANTE Hydromorphone HCl (Hydromorphone 0.5 Mg/0.5 Ml Syringe) 0.5 mg IVPUSH Q2H PRN PRN Reason: Pain (severe 7-10) Sodium Chloride (Normal Saline) 1,000 mls @ 150 mls/hr IV ASDIRECTED DIAMANTE Last Infusion: 02/26/21 17:26 Dose: 0 mls/hr Documented by: Admin: 02/26/21 16:09 Dose: 150 mls/hr Documented by: Infusion: 02/26/21 16:09 Dose: 150 mls/hr Documented by: Admin: 02/26/21 11:57 Dose: 150 mls/hr Documented by: EVGENY Diltiazem HCl 100 mg/ Sodium (Chloride) 100 mls @ 5 mls/hr IV TITRATE DIAMANTE; Protocol Last Titration: 02/26/21 19:30 Dose: 10 mg/hr, 10 mls/hr Documented by: Admin: 02/26/21 16:09 Dose: 5 mg/hr, 5 mls/hr Documented by: EVGENY Piperacillin Sod/Tazobactam (Sod 4.5 gm/ Sodium Chloride) 100 mls @ 25 mls/hr IV Q8H DIAMANTE Piperacillin Sod/Tazobactam (Sod 4.5 gm/ Sodium Chloride) 100 mls @ 200 mls/hr IV ONETIME ONE Stop: 02/26/21 20:29 Insulin Human Lispro (Insulin Lispro 100 Unit/Ml 10 Ml Vial) 0 unit SUBCUT QIDACANDBED DIAMANTE; Protocol Lorazepam (Lorazepam 1 Mg Tab) 1 - 2 mg PO ASDIRECTED DIAMANTE; Protocol Melatonin (Melatonin 3 Mg Tab) 6 mg PO BEDTIME PRN PRN Reason: Sleep Metoprolol Tartrate (Metoprolol Tartrate 50 Mg Tab) 75 mg PO BID DIAMANTE Ondansetron HCl (Ondansetron 4 Mg/2 Ml Sdv) 4 mg IV Q4H PRN PRN Reason: Nausea/Vomiting Oxycodone HCl (Oxycodone 5 Mg Tab) 5 mg PO Q4H PRN PRN Reason: Pain (moderate 4-6) Last Admin: 02/26/21 17:51 Dose: 5 mg Documented by: EVGENY Pantoprazole Sodium (Pantoprazole 40 Mg Tab.Cr) 40 mg PO ACBREAKFAST DIAMANTE Potassium Chloride (Potassium Chloride 20 Meq Tab.Er) 40 meq PO BEDTIME DIAMANTE Rivaroxaban (Rivaroxaban 10 Mg Tab) 20 mg PO DAILY [facility] Sodium Chloride (Sodium Chloride 0.9% 10 Ml Syringe) 10 ml FLUSH ASDIRECTED PRN PRN Reason: Keep Vein Open Last Admin: 02/26/21 11:58 Dose: 10 ml Documented by: EVGENY Thiamine HCl (Thiamine 100 Mg Tab) 100 mg PO DAILY [facility] Labs: Laboratory Tests 02/26/21 02/26/21 02/26/21 Range/Units 11:55 11:55 11:55 WBC 11.11 H (4.23-9.07) K/mm3 RBC 4.18 L (4.63-6.08) M/mm3 Hgb 11.9 L D (13.7-17.5) gm/dl Hct 36.8 L (40.1-51.0) % MCV 88.0 D (79.0-92.2) fl MCH 28.5 (25.7-32.2) pg MCHC 32.3 (32.2-35.5) g/dl RDW Std Deviation 48.8 H (35.1-43.9) fL Plt Count 236 D (163-337) K/mm3 MPV 9.0 L (9.4-12.3) fl Neut % (Auto) 68.7 H (34.0-67.9) % Lymph % (Auto) 14.2 L (21.8-53.1) % Angelina % (Auto) 13.7 H (5.3-12.2) % Eos % (Auto) 2.3 (0.8-7.0) Baso % (Auto) 0.5 (0.1-1.2) % Neut # (Auto) 7.63 H (1.78-5.38) K/mm3 Lymph # (Auto) 1.58 (1.32-3.57) K/mm3 Angelina # (Auto) 1.52 H (0.30-0.82) K/mm3 Eos # (Auto) 0.25 (0.04-0.54) K/mm3 Baso # (Auto) 0.06 (0.01-0.08) K/mm3 Manual Slide Review Normal smear Sodium 144 (136-145) mEq/L Potassium 3.2 L (3.5-5.1) mEq/L Chloride 105 (98-107) mEq/L Carbon Dioxide 28 (21-32) mEq/L Anion Gap 14.2 (5-15) BUN 10 (7-18) mg/dL Creatinine 1.0 (0.7-1.3) mg/dL Est Cr Clr Drug Dosing 80.10 mL/min Estimated GFR (MDRD) > 60 (>60) mL/min BUN/Creatinine Ratio 10.0 L (14-18) Glucose 101 H (70-99) mg/dL Lactic Acid (0.4-2.0) mmol/L Calcium 8.9 (8.5-10.1) mg/dL Magnesium 1.5 L (1.8-2.4) mg/dL Total Bilirubin 0.6 (0.2-1.0) mg/dL AST 28 (15-37) U/L ALT 40 (16-63) U/L Alkaline Phosphatase 69 (46-116) U/L Troponin I < 0.017 (0.00-0.056) ng/mL C-Reactive Protein 0.8 (<1.0) mg/dL NT-Pro-B Natriuret Pep 248 H (0-125) pg/mL Total Protein 6.7 (6.4-8.2) g/dl Albumin 3.1 L (3.4-5.0) g/dl Globulin 3.6 gm/dL Albumin/Globulin Ratio 0.9 L (1-2) TSH 3rd Generation 1.030 (0.358-3.74) uIU/mL Ethyl Alcohol 0.04 (0.00) gm% 02/26/21 Range/Units 16:00 WBC (4.23-9.07) K/mm3 RBC (4.63-6.08) M/mm3 Hgb (13.7-17.5) gm/dl Hct (40.1-51.0) % MCV (79.0-92.2) fl MCH (25.7-32.2) pg MCHC (32.2-35.5) g/dl RDW Std Deviation (35.1-43.9) fL Plt Count (163-337) K/mm3 MPV (9.4-12.3) fl Neut % (Auto) (34.0-67.9) % Lymph % (Auto) (21.8-53.1) % Angelina % (Auto) (5.3-12.2) % Eos % (Auto) (0.8-7.0) Baso % (Auto) (0.1-1.2) % Neut # (Auto) (1.78-5.38) K/mm3 Lymph # (Auto) (1.32-3.57) K/mm3 Angelina # (Auto) (0.30-0.82) K/mm3 Eos # (Auto) (0.04-0.54) K/mm3 Baso # (Auto) (0.01-0.08) K/mm3 Manual Slide Review Sodium (136-145) mEq/L Potassium (3.5-5.1) mEq/L Chloride (98-107) mEq/L Carbon Dioxide (21-32) mEq/L Anion Gap (5-15) BUN (7-18) mg/dL Creatinine (0.7-1.3) mg/dL Est Cr Clr Drug Dosing mL/min Estimated GFR (MDRD) (>60) mL/min BUN/Creatinine Ratio (14-18) Glucose (70-99) mg/dL Lactic Acid 3.2 H* (0.4-2.0) mmol/L Calcium (8.5-10.1) mg/dL Magnesium (1.8-2.4) mg/dL Total Bilirubin (0.2-1.0) mg/dL AST (15-37) U/L ALT (16-63) U/L Alkaline Phosphatase (46-116) U/L Troponin I (0.00-0.056) ng/mL C-Reactive Protein (<1.0) mg/dL NT-Pro-B Natriuret Pep (0-125) pg/mL Total Protein (6.4-8.2) g/dl Albumin (3.4-5.0) g/dl Globulin gm/dL Albumin/Globulin Ratio (1-2) TSH 3rd Generation (0.358-3.74) uIU/mL Ethyl Alcohol (0.00) gm% Meds: Medications Generic Name Dose Route Start Last Admin Trade Name Freq PRN Reason Stop Dose Admin Acetaminophen 650 mg 02/26/21 17:01 Acetaminophen 325 Mg Tab PO Q4H PRN Pain (Mild 1-3)/fever Diltiazem HCl 360 mg 02/27/21 09:00 Diltiazem 120 Mg Cap.Cd PO DAILY DIAMANTE Folic Acid 1 mg 02/27/21 09:00 Folic Acid 1 Mg Tab PO 03/01/21 09:01 DAILY DIAMANTE Gabapentin 600 mg 02/26/21 21:00 Gabapentin 600 Mg Tab PO BEDTIME DIAAMNTE Hydromorphone HCl 0.5 mg 02/26/21 17:01 Hydromorphone 0.5 Mg/0.5 Ml Syringe IVPUSH Q2H PRN Pain (severe 7-10) Sodium Chloride 1,000 mls @ 150 mls/hr 02/26/21 12:00 02/26/21 17:26 Normal Saline IV 0 mls/hr ASDIRECTED DIAMANTE Infusion Diltiazem HCl 100 mg/ Sodium 100 mls @ 5 mls/hr 02/26/21 15:30 02/26/21 19:30 Chloride IV 10 mg/hr TITRATE DIAMANTE 10 mls/hr Titration Protocol 5 MG/HR Piperacillin Sod/Tazobactam 100 mls @ 25 mls/hr 02/27/21 03:00 Sod 4.5 gm/ Sodium Chloride IV Q8H DIAMANTE Piperacillin Sod/Tazobactam 100 mls @ 200 mls/hr 02/26/21 20:00 Sod 4.5 gm/ Sodium Chloride IV 02/26/21 20:29 ONETIME ONE Insulin Human Lispro 0 unit 02/26/21 22:00 Insulin Lispro 100 Unit/Ml 10 Ml Vial SUBCUT QIDACANDBED DIAMANTE Protocol Lorazepam 1 - 2 mg 02/26/21 17:15 Lorazepam 1 Mg Tab PO ASDIRECTED DIAMANTE Protocol Melatonin 6 mg 02/26/21 17:06 Melatonin 3 Mg Tab PO BEDTIME PRN Sleep Metoprolol Tartrate 75 mg 02/27/21 09:00 Metoprolol Tartrate 50 Mg Tab PO BID DIAMANTE Ondansetron HCl 4 mg 02/26/21 17:01 Ondansetron 4 Mg/2 Ml Sdv IV Q4H PRN Nausea/Vomiting Oxycodone HCl 5 mg 02/26/21 17:01 02/26/21 17:51 Oxycodone 5 Mg Tab PO 5 mg Q4H PRN Administration Pain (moderate 4-6) Pantoprazole Sodium 40 mg 02/27/21 06:00 Pantoprazole 40 Mg Tab.Cr PO ACBREAKFAST [facility] Potassium Chloride 40 meq 02/26/21 21:00 Potassium Chloride 20 Meq Tab.Er PO BEDTIME DIAMANTE Rivaroxaban 20 mg 02/27/21 09:00 Rivaroxaban 10 Mg Tab PO DAILY DIAMANTE Sodium Chloride 10 ml 02/26/21 11:44 02/26/21 11:58 Sodium Chloride 0.9% 10 Ml Syringe FLUSH 10 ml ASDIRECTED PRN Administration Keep Vein Open Thiamine HCl 100 mg 02/27/21 09:00 Thiamine 100 Mg Tab PO DAILY DIAMANTE Discontinued Medications Generic Name Dose Route Start Last Admin Trade Name Freq PRN Reason Stop Dose Admin Diltiazem HCl 10 mg 02/26/21 14:21 02/26/21 14:27 Diltiazem 50 Mg/10 Ml Sdv IVPUSH 02/26/21 14:22 10 mg ONETIME ONE Administration Diltiazem HCl 10 mg 02/26/21 15:18 02/26/21 15:22 Diltiazem 50 Mg/10 Ml Sdv IVPUSH 02/26/21 15:19 10 mg ONETIME ONE Administration Sodium Chloride 1,000 mls @ 999 mls/hr 02/26/21 12:58 02/26/21 13:08 Normal Saline IV 02/26/21 13:58 999 mls/hr ONETIME ONE Administration Lactated Ringer's 1,000 mls @ 500 mls/hr 02/26/21 16:45 02/26/21 17:23 Ringers, Lactated IV 02/26/21 18:44 500 mls/hr .BOLUS ONE Administration Magnesium Sulfate/Dextrose 1 100 mls @ 100 mls/hr 02/26/21 17:00 02/26/21 17:51 gm/ Premix IV 02/26/21 17:59 100 mls/hr ONETIME ONE Administration Piperacillin Sod/Tazobactam 100 mls @ 200 mls/hr 02/26/21 19:00 Sod 4.5 gm/ Sodium Chloride IV 02/26/21 19:29 ONETIME ONE Lorazepam 1 mg 02/26/21 16:48 02/26/21 16:52 Lorazepam 2 Mg/Ml Sdv IVPUSH 02/26/21 16:49 1 mg ONETIME ONE Administration Magnesium Oxide 400 mg 02/26/21 12:59 02/26/21 13:19 Magnesium Oxide 400 Mg Tab PO 02/26/21 13:00 400 mg ONETIME ONE Administration Metoclopramide HCl 5 mg 02/26/21 11:49 02/26/21 11:57 Metoclopramide 10 Mg/2 Ml Sdv IVPUSH 02/26/21 11:50 5 mg ONETIME ONE Administration Metoprolol Tartrate 5 mg 02/26/21 11:47 02/26/21 11:57 Metoprolol Tartrate 5 Mg/5 Ml Sdv IVPUSH 02/26/21 11:48 5 mg ONETIME ONE Administration Metoprolol Tartrate 5 mg 02/26/21 12:19 02/26/21 12:46 Metoprolol Tartrate 5 Mg/5 Ml Sdv IVPUSH 02/26/21 12:20 5 mg ONETIME ONE Administration Potassium Chloride 40 meq 02/26/21 12:59 02/26/21 13:11 Potassium Chloride 20 Meq Tab.Er PO 02/26/21 13:00 40 meq ONETIME ONE Administration - Re-Assessments/Exams Free Text/Narrative Re-Assessment/Exam: 02/26/21 12:19 Pt's heartrate remains in the 140's. I have ordered to repeat Metoprolol 5mg IV. I have discussed the case with Dr. English and he agrees with this plan. 02/26/21 13:12 Hematology reveals a WBC of 11.11, hemoglobin 11.9, hematocrit 36.8, platelet count 236 Chemistry reveals a sodium of 144, potassium 3.2, chloride 105, anion gap 14.2, BUN 10, creatinine 1.0, glucose 101, magnesium 1.5, total bilirubin 0.6, AST 28, ALT 40, alk phos 69, troponin less than 0.017, C-reactive protein 0.8, proBNP 248, TSH 1.030 Ethyl alcohol 0.04 Pt does not appear to be dehydrated however his potassium level and magnesium levels are low. I have ordered for the patient to receive 40 mEq of potassium orally as well as magnesium oxide 400 mg p.o. x1 dose. Have also ordered for the patient to receive a 1 L bolus of normal saline. Heart rate does remain in the 140s. If this does not help to resolve his heart rate, I will order for him to receive a Cardizem bolus to see if we can get his heartrate under control. 02/26/21 13:15 Radiologist impression portable view of the chest: 1. Nothing acute is seen on a 2 view chest x-ray. 02/26/21 14:23 Patient's heart rate remains in the 140s after receiving a liter of normal saline, I have ordered for the patient receive 10 mg Cardizem bolus and to repeat x1 if heart rate remains greater than 120. 02/26/21 15:42 Patient has received 20 mg of IV Cardizem and his heart rate still remains at 110. I have ordered for Cardizem drip to be started. I feel that this patient needs to be admitted to ICU. I have spoken with the hospitalist, , and he has accepted care of the patient. Patient is agreeable to being admitted to the hospital. Departure - Departure Time of Disposition: 19:32 Disposition: Admitted As Inpatient 65 Condition: Good Clinical Impression: Afib, Atrial fibrillation, Alcohol abuse Sepsis Event Note (ED) - Evaluation Sepsis Screening Result: No Definite Risk - Focused Exam Vital Signs: Vital Signs Temp Pulse Pulse Resp BP BP Pulse Ox 02/26/21 12:46 143 H 126/93 H 02/26/21 11:57 147 H 116/99 H 02/26/21 11:27 98.7 F 159 H 21 H 111/100 H 99 - My Orders Last 24 Hours: My Active Orders 02/26/21 11:44 Sodium Chloride 0.9% [Saline Flush] 10 ml FLUSH ASDIRECTED PRN Saline Lock Insert [OM.PC] Stat 02/26/21 11:45 DRUG SCREEN, URINE [URCHEM] Stat UA RFX BONNIE AND CULT IF INDIC [URIN] Stat 02/26/21 12:00 Sodium Chloride 0.9% [Normal Saline] 1,000 ml IV ASDIRECTED 02/26/21 15:30 Diltiazem [Cardizem] 100 mg Sodium Chloride 0.9% [Normal Saline] 100 ml IV TITRATE - Assessment/Plan Last 24 Hours: My Active Orders 02/26/21 11:44 Sodium Chloride 0.9% [Saline Flush] 10 ml FLUSH ASDIRECTED PRN Saline Lock Insert [OM.PC] Stat 02/26/21 11:45 DRUG SCREEN, URINE [URCHEM] Stat UA RFX BONNIE AND CULT IF INDIC [URIN] Stat 02/26/21 12:00 Sodium Chloride 0.9% [Normal Saline] 1,000 ml IV ASDIRECTED 02/26/21 15:30 Diltiazem [Cardizem] 100 mg Sodium Chloride 0.9% [Normal Saline] 100 ml IV TITRATE
--- NOTE | 2021-02-26 12:41 | CR ---
Chest: Portable view of the chest was obtained. Comparison: Prior chest x-ray of 02/07/21. Heart size and mediastinum are within normal limits for portable technique. Lung markings are slightly increased which are stable. Lungs show no acute parenchymal change. Bony structure shows nothing acute. Impression: 1. Nothing acute is seen on a 2 view chest x-ray. Diagnostic code #2
[2021-02-26] MEDS ORDERED: Sodium Chloride 0.9% 1,000 ML IV ONE (12:58)
[2021-02-26] MEDS ORDERED: Magnesium Oxide 400 MG Tab PO ONE (12:59)
[2021-02-26] MEDS ORDERED: Potassium Chloride 20 MEQ Tab.ER PO ONE (12:59)
[2021-02-26] MEDS ORDERED: Diltiazem 50 MG/10 ML SDV IVPUSH ONE ×2 (14:21→15:18)
[2021-02-26] MEDS ORDERED: Diltiazem 100 MG in Sodium Chloride 0.9% 100 ML IV SCH (15:30)
[2021-02-26] MEDS ORDERED: Lactated Ringers 1,000 ML IV ONE (16:45)
[2021-02-26] MEDS ORDERED: LORazepam 2 MG/ML SDV IVPUSH ONE (16:48)
[2021-02-26] MEDS ORDERED: Ondansetron 4 MG/2 ML SDV IV PRN (17:01)
--- NOTE | 2021-02-26 17:18 | PCM.HP.2 ---
H&P History of Present Illness - General Date of Service: 02/26/21 Admit Problem/Dx: Admission Diagnosis/Problem Admission Diagnosis/Problem Atrial fibrillation with rapid ventricular response Afib w/RVR Source of Information: Patient History Limitations: Reports: No Limitations - History of Present Illness Initial Comments - Free Text/Narative: This is a 60M with PMHx of Atrial Fibrillation (on xarelto +metoprolol), T2DM (on metformin), HFpEF, alcoholism presenting for evaluation of afib w/RVR. the patient recently left [facility]. He presented to clinic today and was referred to ED because he was noted to be tachycardic. The patient had been drinking alcohol to help manage chronic left hip pain. He denies chest pain, sob, nausea, vomiting, abdominal pain. Denies chest pressure. In the ED the patient was noted to be in Afib w/RVR. He was given IV metoprolol and started on diltiazem infusion. His lactate was elevated at 3.2. Back Pain Score (Numeric/FACES): 5 Left Leg Pain Score (Numeric/FACES): 3 - Related Data Allergies/Adverse Reactions: Allergies Allergy/AdvReac Type Severity Reaction Status Date / Time No Known Allergies Allergy Verified 02/26/21 23:24 Home Medications: Home Meds Omeprazole 20 mg PO DAILY 07/07/16 [History] Folic Acid 1 mg PO DAILY 09/26/17 [History] Metoprolol Tartrate 75 mg PO BID 09/26/17 [History] Thiamine [Vitamin B-1] 200 mg PO DAILY 09/26/17 [History] Cholecalciferol (Vitamin D3) [Vitamin D] 5,000 unit PO DAILY 01/09/19 [History] Multivitamin [Multivitamins] 1 each PO DAILY 01/09/19 [History] Rivaroxaban [Xarelto] 20 mg PO DAILY 01/09/19 [History] atorvaSTATin [Lipitor] 40 mg PO BEDTIME 01/09/19 [History] metFORMIN HCl [Metformin HCl] 500 mg PO BID 07/25/19 [History] Gabapentin [Neurontin] 600 mg PO BEDTIME #30 tab 11/20/20 [Rx] Acetaminophen [Tylenol] 650 mg PO Q4H PRN #20 tablet 02/10/21 [Rx] Diltiazem [Cardizem CD] 360 mg PO DAILY #60 cap.er 02/10/21 [Rx] Furosemide [Lasix] 40 mg PO 0600,1500 #60 tablet 02/10/21 [Rx] Magnesium Oxide 800 mg PO BID #50 tablet 02/10/21 [Rx] Melatonin 6 mg PO BEDTIME PRN #20 tablet 02/10/21 [Rx] Potassium Chloride [Klor-Con M20] 40 meq PO 1700 #30 tab.er 02/10/21 [Rx] Past Medical History - Past Health History Medical/Surgical History: Denies Medical/Surgical History HEENT History: Reports: Cataract Cardiovascular History: Reports: Afib, High Cholesterol, Hypertension Other Cardiovascular History: hx/o a-fib/RVR Respiratory History: Reports: COPD Other Respiratory History: 07/24/16 admitted with pneumonia Gastrointestinal History: Reports: GERD Genitourinary History: Reports: Renal Calculus Musculoskeletal History: Reports: Fracture Other Musculoskeletal History: right foot fracture 20 yrs ago; Fx of L wrist 2018 Neurological History: Reports: Other (See Below) Other Neuro History: seizures with ETOH withdrawal Psychiatric History: Reports: Addiction Other Psychiatric History: alcohol Endocrine/Metabolic History: Reports: Diabetes, Type II, Obesity/BMI 30+ Hematologic History: Reports: Anticoagulation Therapy Other Immunologic History: pt states that a doctor told him he had hep c once but his last check was ok Oncologic (Cancer) History: Reports: None Dermatologic History: Reports: None - Infectious Disease History Infectious Disease History: Reports: Chicken Pox, Hepatitis C, MRSA Other Infectious Disease History: Hep C per Demond Ponce hospitalist/[place], 06/2016. - Past Surgical History Head Surgeries/Procedures: Reports: None HEENT Surgical History: Reports: None Cardiovascular Surgical History: Reports: None Respiratory Surgical History: Reports: None GI Surgical History: Reports: None Endocrine Surgical History: Reports: None Musculoskeletal Surgical History: Reports: ORIF, Other (See Below) Other Musculoskeletal Surgeries/Procedures:: right toe -hammer toe surgery, left wrist surgery; BUNIONECTOMY Social & Family History - Family History Family Medical History: No Pertinent Family History Neurological: Reports: CVA Endocrine/Metabolic: Reports: Diabetes, type II Hematologic: Reports: Other (See Below) Other Hematologic Family History: hepatitias c Immunologic: Reports: None Oncologic: Reports: Leukemia - Tobacco Use Tobacco Use Status *Q: Former Tobacco User Years of Tobacco use: 50 Packs/Tins Daily: 1 Used Tobacco, but Quit: Yes Month/Year Tobacco Last Used: 07/31/2018 Second Hand Smoke Exposure: No - Caffeine Use Caffeine Use: Reports: Soda - Alcohol Use Days Per Week of Alcohol Use: 7 Number of Drinks Per Day: 14 Total Drinks Per Week: 98 Date of Last Drink: 02/25/21 Time of Last Drink: 22:00 - Recreational Drug Use Recreational Drug Use: No - Living Situation & Occupation Living situation: Reports: , Alone Occupation: Unemployed H&P Review of Systems - Review of Systems: Review Of Systems: Comprehensive ROS is negative, except as noted in HPI. Exam - Exam Exam: See Below - Vital Signs Vital Signs: Last Vital Signs Temp 98.0 F 02/26/21 17:00 Pulse 107 H 02/26/21 17:00 Resp 19 02/26/21 17:00 BP 126/93 H 02/26/21 17:00 Pulse Ox 98 02/26/21 17:06 Weight: 248 lb - Exam Quality Assessment: Supplemental Oxygen General: Alert, Oriented, Cooperative HEENT: Conjunctiva Clear, EOMI, Nares Patent Neck: Supple Lungs: Clear to Auscultation Cardiovascular: Normal S1, Normal S2, Irregular Rhythm, Tachycardia GI/Abdominal Exam: Soft, Non-Tender, No Distention Extremities: Normal Inspection Skin: Warm, Dry, Intact Neurological: Cranial Nerves Intact, Normal Speech Neuro Extensive - Mental Status: Alert, Oriented x3, Normal Mood/Affect, Normal Cognition Neuro Extensive - Motor, Sensory, Reflexes: CN II-XII Intact Psychiatric: Alert, Normal Affect, Normal Mood - Patient Data Lab Results Last 24 hrs: Laboratory Results - last 24 hr 02/26/21 02/26/21 02/26/21 Range/Units 11:55 11:55 11:55 WBC 11.11 H (4.23-9.07) K/mm3 RBC 4.18 L (4.63-6.08) M/mm3 Hgb 11.9 L D (13.7-17.5) gm/dl Hct 36.8 L (40.1-51.0) % MCV 88.0 D (79.0-92.2) fl MCH 28.5 (25.7-32.2) pg MCHC 32.3 (32.2-35.5) g/dl RDW Std Deviation 48.8 H (35.1-43.9) fL Plt Count 236 D (163-337) K/mm3 MPV 9.0 L (9.4-12.3) fl Neut % (Auto) 68.7 H (34.0-67.9) % Lymph % (Auto) 14.2 L (21.8-53.1) % Long % (Auto) 13.7 H (5.3-12.2) % Eos % (Auto) 2.3 (0.8-7.0) Baso % (Auto) 0.5 (0.1-1.2) % Neut # (Auto) 7.63 H (1.78-5.38) K/mm3 Lymph # (Auto) 1.58 (1.32-3.57) K/mm3 Long # (Auto) 1.52 H (0.30-0.82) K/mm3 Eos # (Auto) 0.25 (0.04-0.54) K/mm3 Baso # (Auto) 0.06 (0.01-0.08) K/mm3 Manual Slide Review Normal smear Sodium 144 (136-145) mEq/L Potassium 3.2 L (3.5-5.1) mEq/L Chloride 105 (98-107) mEq/L Carbon Dioxide 28 (21-32) mEq/L Anion Gap 14.2 (5-15) BUN 10 (7-18) mg/dL Creatinine 1.0 (0.7-1.3) mg/dL Est Cr Clr Drug Dosing 80.10 mL/min Estimated GFR (MDRD) > 60 (>60) mL/min BUN/Creatinine Ratio 10.0 L (14-18) Glucose 101 H (70-99) mg/dL Lactic Acid (0.4-2.0) mmol/L Calcium 8.9 (8.5-10.1) mg/dL Magnesium 1.5 L (1.8-2.4) mg/dL Total Bilirubin 0.6 (0.2-1.0) mg/dL AST 28 (15-37) U/L ALT 40 (16-63) U/L Alkaline Phosphatase 69 (46-116) U/L Troponin I < 0.017 (0.00-0.056) ng/mL C-Reactive Protein 0.8 (<1.0) mg/dL NT-Pro-B Natriuret Pep 248 H (0-125) pg/mL Total Protein 6.7 (6.4-8.2) g/dl Albumin 3.1 L (3.4-5.0) g/dl Globulin 3.6 gm/dL Albumin/Globulin Ratio 0.9 L (1-2) TSH 3rd Generation 1.030 (0.358-3.74) uIU/mL Ethyl Alcohol 0.04 (0.00) gm% 02/26/21 Range/Units 16:00 WBC (4.23-9.07) K/mm3 RBC (4.63-6.08) M/mm3 Hgb (13.7-17.5) gm/dl Hct (40.1-51.0) % MCV (79.0-92.2) fl MCH (25.7-32.2) pg MCHC (32.2-35.5) g/dl RDW Std Deviation (35.1-43.9) fL Plt Count (163-337) K/mm3 MPV (9.4-12.3) fl Neut % (Auto) (34.0-67.9) % Lymph % (Auto) (21.8-53.1) % Long % (Auto) (5.3-12.2) % Eos % (Auto) (0.8-7.0) Baso % (Auto) (0.1-1.2) % Neut # (Auto) (1.78-5.38) K/mm3 Lymph # (Auto) (1.32-3.57) K/mm3 Long # (Auto) (0.30-0.82) K/mm3 Eos # (Auto) (0.04-0.54) K/mm3 Baso # (Auto) (0.01-0.08) K/mm3 Manual Slide Review Sodium (136-145) mEq/L Potassium (3.5-5.1) mEq/L Chloride (98-107) mEq/L Carbon Dioxide (21-32) mEq/L Anion Gap (5-15) BUN (7-18) mg/dL Creatinine (0.7-1.3) mg/dL Est Cr Clr Drug Dosing mL/min Estimated GFR (MDRD) (>60) mL/min BUN/Creatinine Ratio (14-18) Glucose (70-99) mg/dL Lactic Acid 3.2 H* (0.4-2.0) mmol/L Calcium (8.5-10.1) mg/dL Magnesium (1.8-2.4) mg/dL Total Bilirubin (0.2-1.0) mg/dL AST (15-37) U/L ALT (16-63) U/L Alkaline Phosphatase (46-116) U/L Troponin I (0.00-0.056) ng/mL C-Reactive Protein (<1.0) mg/dL NT-Pro-B Natriuret Pep (0-125) pg/mL Total Protein (6.4-8.2) g/dl Albumin (3.4-5.0) g/dl Globulin gm/dL Albumin/Globulin Ratio (1-2) TSH 3rd Generation (0.358-3.74) uIU/mL Ethyl Alcohol (0.00) gm% Result Diagrams: 02/27/21 04:55 02/27/21 04:55 Sepsis Event Note - Evaluation Sepsis Screening Result: No Definite Risk Current Stage of Sepsis: Sepsis - Focused Exam Sepsis Event Note Statement: Focused Sepsis Exam Completed Vital Signs: Vital Signs Temp Pulse Pulse Resp BP BP Pulse Ox 02/26/21 17:06 02/26/21 17:00 98.0 F 107 H 19 126/93 H 98 02/26/21 16:33 98.4 F 116 H 20 129/90 99 02/26/21 12:46 143 H 126/93 H 02/26/21 11:57 147 H 116/99 H 02/26/21 11:27 98.7 F 159 H 21 H 111/100 H 99 Pulse Ox 02/26/21 17:06 98 02/26/21 17:00 02/26/21 16:33 02/26/21 12:46 02/26/21 11:57 02/26/21 11:27 *Q Meaningful Use (ADM) - VTE *Q VTE Criteria *Q: 1 Problem List Initiated/Reviewed/Updated: Yes Orders Last 24hrs: Active Orders 24 hr Category Date Time Status Admission Status [Patient Status] [ADT] Routine ADT 02/26/21 16:13 Active Blood Glucose Check, Bedside [RC] QIDACANDBED Care 02/26/21 17:09 Ordered CIWAA Assessment [RC] Q4H Care 02/26/21 17:04 Active Cardiac Monitoring [RC] CONTINUOUS Care 02/26/21 17:01 Active Height and Weight [RC] DAILY Care 02/26/21 17:01 Active Intake and Output [RC] QSHIFT Care 02/26/21 17:01 Active Notify Provider [RC] PRN Care 02/26/21 17:04 Active Oxygen Therapy [RC] PRN Care 02/26/21 17:01 Active Up With Assistance [RC] ASDIRECTED Care 02/26/21 17:01 Active VTE/DVT Education [RC] Care 02/26/21 17:01 Active Consult to Case Management/Transaction Coordinator [CONS] Cons 02/26/21 17:01 Active Routine Regular Diet [DIET] Diet 02/26/21 Dinner Active Hip wo Cont Lt [CT] Routine Exams 02/27/21 08:00 Ordered BASIC METABOLIC PANEL,BMP [CHEM] AM Lab 02/27/21 05:11 Ordered BLOOD CULTURE [MREF] Routine Lab 02/26/21 16:46 Ordered BLOOD CULTURE [MREF] Routine Lab 02/26/21 16:50 Ordered CBC WITH AUTO DIFF [HEME] AM Lab 02/27/21 05:11 Ordered DRUG SCREEN, URINE [URCHEM] Stat Lab 02/26/21 11:45 Ordered LACTIC ACID [CHEM] Routine Lab 02/26/21 20:00 Ordered UA RFX BONNIE AND CULT IF INDIC [URIN] Stat Lab 02/26/21 11:45 Ordered Acetaminophen [TylenoL] Med 02/26/21 17:01 Ordered 650 mg PO Q4H PRN Diltiazem [Cardizem CD] Med 02/27/21 09:00 Ordered 360 mg PO DAILY Diltiazem [Cardizem] 100 mg Med 02/26/21 15:30 Active Sodium Chloride 0.9% [Normal Saline] 100 ml IV TITRATE Folic Acid Med 02/27/21 09:00 Ordered 1 mg PO DAILY Gabapentin [Neurontin] Med 02/26/21 21:00 Ordered 600 mg PO BEDTIME HYDROmorphone [Dilaudid] Med 02/26/21 17:01 Ordered 0.5 mg IVPUSH Q2H PRN Insulin Lispro [HumaLOG] Med 02/26/21 22:00 Ordered See Protocol SUBCUT QIDACANDBED LORazepam [Ativan] Med 02/26/21 17:15 Ordered See Protocol PO ASDIRECTED Lactated Ringers [Ringers, Lactated] 1,000 ml Med 02/26/21 16:45 Active IV .BOLUS Magnesium Sulfate/D5W [Magnesium Sulfate in D5W 1 GM/ Med 02/26/21 17:00 Active 100 ML] 1 gm Premix Bag 1 bag IV ONETIME Melatonin Med 02/26/21 17:06 Ordered 6 mg PO BEDTIME PRN Metoprolol Tartrate [Lopressor] Med 02/27/21 09:00 Ordered 75 mg PO BID Omeprazole Med 02/27/21 09:00 Ordered 20 mg PO DAILY Ondansetron [Zofran] Med 02/26/21 17:01 Ordered 4 mg IV Q4H PRN Piperacillin/Tazobactam [Piperacil-Tazobact] 4.5 gm Med 02/26/21 19:00 Active Sodium Chloride 0.9% [Normal Saline] 100 ml IV ONETIME Piperacillin/Tazobactam [Piperacil-Tazobact] 4.5 gm Med 02/26/21 17:00 Ordered Sodium Chloride 0.9% [Normal Saline] 100 ml IV Q8H Potassium Chloride [Klor-Con M20] Med 02/26/21 21:00 Active 40 meq PO BEDTIME Rivaroxaban [Xarelto] Med 02/27/21 09:00 Ordered 20 mg PO DAILY Sodium Chloride 0.9% [Normal Saline] 1,000 ml Med 02/26/21 12:00 Active IV ASDIRECTED Sodium Chloride 0.9% [Saline Flush] Med 02/26/21 11:44 Active 10 ml FLUSH ASDIRECTED PRN Thiamine [Vitamin B-1] Med 02/27/21 09:00 Ordered 100 mg PO DAILY oxyCODONE Med 02/26/21 17:01 Ordered 5 mg PO Q4H PRN Saline Lock Insert [OM.PC] Stat Oth 02/26/21 11:44 Ordered Resuscitation Status Routine Resus Stat 02/26/21 17:01 Ordered Medication Orders Acetaminophen (Acetaminophen 325 Mg Tab) 650 mg PO Q4H PRN PRN Reason: Pain (Mild 1-3)/fever Diltiazem HCl (Diltiazem 120 Mg Cap.Cd) 360 mg PO DAILY DIAMANTE Folic Acid (Folic Acid 1 Mg Tab) 1 mg PO DAILY DIAMANTE Stop: 03/01/21 09:01 Gabapentin (Gabapentin 600 Mg Tab) 600 mg PO BEDTIME DIAMANTE Hydromorphone HCl (Hydromorphone 0.5 Mg/0.5 Ml Syringe) 0.5 mg IVPUSH Q2H PRN PRN Reason: Pain (severe 7-10) Sodium Chloride (Normal Saline) 1,000 mls @ 150 mls/hr IV ASDIRECTED DIAMANTE Last Admin: 02/26/21 16:09 Dose: 150 mls/hr Documented by: Infusion: 02/26/21 16:09 Dose: 150 mls/hr Documented by: Admin: 02/26/21 11:57 Dose: 150 mls/hr Documented by: EVGENY Diltiazem HCl 100 mg/ Sodium (Chloride) 100 mls @ 5 mls/hr IV TITRATE DIAMANTE; Protocol Last Admin: 02/26/21 16:09 Dose: 5 mg/hr, 5 mls/hr Documented by: EVGENY Lactated Ringer's (Ringers, Lactated) 1,000 mls @ 500 mls/hr IV .BOLUS ONE Stop: 02/26/21 18:44 Piperacillin Sod/Tazobactam (Sod 4.5 gm/ Sodium Chloride) 100 mls @ 25 mls/hr IV Q8H DIAMANTE Magnesium Sulfate/Dextrose 1 (gm/ Premix) 100 mls @ 100 mls/hr IV ONETIME ONE Stop: 02/26/21 17:59 Piperacillin Sod/Tazobactam (Sod 4.5 gm/ Sodium Chloride) 100 mls @ 200 mls/hr IV ONETIME ONE Stop: 02/26/21 19:29 Insulin Human Lispro (Insulin Lispro 100 Unit/Ml 10 Ml Vial) 0 unit SUBCUT QIDACANDBED DIAMANTE; Protocol Lorazepam (Lorazepam 1 Mg Tab) 1 - 2 mg PO ASDIRECTED DIAMANTE; Protocol Melatonin (Melatonin 3 Mg Tab) 6 mg PO BEDTIME PRN PRN Reason: Sleep Metoprolol Tartrate (Metoprolol Tartrate 100 Mg Tab) 75 mg PO BID DIAMANTE Non-Formulary Medication (Omeprazole) 20 mg PO DAILY DIAMANTE Non-Formulary Medication (Rivaroxaban [Xarelto]) 20 mg PO DAILY DIAMANTE Ondansetron HCl (Ondansetron 4 Mg/2 Ml Sdv) 4 mg IV Q4H PRN PRN Reason: Nausea/Vomiting Oxycodone HCl (Oxycodone 5 Mg Tab) 5 mg PO Q4H PRN PRN Reason: Pain (moderate 4-6) Potassium Chloride (Potassium Chloride 20 Meq Tab.Er) 40 meq PO BEDTIME [facility] Sodium Chloride (Sodium Chloride 0.9% 10 Ml Syringe) 10 ml FLUSH ASDIRECTED PRN PRN Reason: Keep Vein Open Last Admin: 02/26/21 11:58 Dose: 10 ml Documented by: EVGENY Thiamine HCl (Thiamine 100 Mg Tab) 100 mg PO DAILY [facility] Assessment/Plan Comment:: This is a 60M with past medical history Diastolic CHF, Type II DM, Alcoholism, Afib (on xarelto/metoprolol/diltiazem) presenting for evaluation of afib w/rvr 1. Afib w/RVR 2. SIRS syndrome; r/o sepsis; tachycardia; leukocytosis; lactic acidosis 3. Hx of Diastolic CHF 4. Hx of alcoholism 5. Hx of chronic left hip pain 6. Hx of Type II DM with peripheral neuropathy 7. Obesity Plan -IVF bolus -serial lactate -blood cx -empiric zosyn -hold metformin -resume metoprolol tomorrow -hold diltiazem infusion for now given possible sepsis -tele -monitor I&O -CT left hip -pain control -CIWA protocol; monitor for withdrawal symptoms -PT, OT, SW consult Code-Full code DVT ppx-xarelto Dispo-TBD likely will need short term rehab - Mortality Measure Prognosis:: Good
[2021-02-26] MEDS: oxyCODONE 5 MG Tab PO PRN ×2 (17:51→22:10)
[2021-02-26] MEDS ORDERED: Piperacillin/Tazobactam 4.5 GM in Sodium Chloride 0.9% 100 ML IV ONE ×3 (18:00→20:00)
[2021-02-26] MEDS: Gabapentin 600 MG Tab PO SCH (20:20)
[2021-02-26] MEDS: Potassium Chloride 20 MEQ Tab.ER PO SCH (20:20)
[2021-02-26] MEDS: Melatonin 3 MG Tab PO PRN (20:21)
[2021-02-26] MEDS: Insulin Lispro 100 UNIT/ML 10 ML Vial SUBCUT SCH (21:02)
[2021-02-26] MEDS ORDERED: Sodium Chloride 0.9% 1,000 ML IV SCH (21:06)
[2021-02-27] MEDS: Sodium Chloride 0.9% 1,000 ML IV SCH (00:46)
[2021-02-27] MEDS: HYDROmorphone 0.5 MG/0.5 ML Syringe IVPUSH PRN (01:16)
[2021-02-27] MEDS: oxyCODONE 5 MG Tab PO PRN ×5 (02:28→22:45)
[2021-02-27] MEDS ORDERED: Piperacillin/Tazobactam 4.5 GM in Sodium Chloride 0.9% 100 ML IV SCH (03:00)
[2021-02-27] MEDS: Pantoprazole 40 MG Tab.CR PO SCH (06:25)
[2021-02-27] MEDS: Insulin Lispro 100 UNIT/ML 10 ML Vial SUBCUT SCH ×4 (06:35→22:50)
[2021-02-27] MEDS: Sodium Chloride 0.45% 1,000 ML IV SCH ×2 (07:45→18:12)
[2021-02-27] MEDS: Rivaroxaban 10 MG Tab PO SCH (08:33)
[2021-02-27] MEDS: Metoprolol Tartrate 100 MG Tab PO SCH ×2 (08:34→20:02)
[2021-02-27] MEDS: Thiamine 100 MG Tab PO SCH (08:34)
[2021-02-27] MEDS: Folic Acid 1 MG Tab PO SCH (08:35)
[2021-02-27] MEDS: Amiodarone 200 MG Tab PO SCH ×2 (08:35→20:04)
[2021-02-27] MEDS ORDERED: Metoprolol Tartrate 50 MG Tab PO SCH (09:00)
[2021-02-27] MEDS ORDERED: Diltiazem 120 MG Cap.CD PO SCH (09:00)
--- NOTE | 2021-02-27 09:54 | PCM.PN ---
- General Info Date of Service: 02/27/21 Admission Dx/Problem (Free Text): Afib w/RVR Subjective Update: Patient denies chest pain and SOB slept well HR 120-130s when sitting at edge of chair per patient he was to have been started on amiodarone with discontinuation of diltiazem no fever overnight lactic acid normalized - Review of Systems HEENT: Reports: No Symptoms Pulmonary: Reports: No Symptoms Cardiovascular: Reports: Palpitations Musculoskeletal: Reports: Joint Pain Skin: Reports: No Symptoms Psychiatric: Reports: No Symptoms - Patient Data Vitals - Most Recent: Last Vital Signs Temp 97.7 F 02/27/21 08:00 Pulse 132 H 02/27/21 08:34 Resp 22 H 02/27/21 08:00 BP 114/92 H 02/27/21 08:34 Pulse Ox 91 L 02/27/21 08:00 Weight - Most Recent: 241 lb I&O - Last 24 Hours: Intake & Output 02/26/21 02/27/21 02/27/21 22:59 06:59 14:59 Intake Total 2000 3120 Output Total 400 900 Balance 1600 2220 Lab Results Last 24 Hours: Laboratory Results - last 24 hr 02/26/21 02/26/21 02/26/21 Range/Units 11:55 11:55 11:55 WBC 11.11 H (4.23-9.07) K/mm3 RBC 4.18 L (4.63-6.08) M/mm3 Hgb 11.9 L D (13.7-17.5) gm/dl Hct 36.8 L (40.1-51.0) % MCV 88.0 D (79.0-92.2) fl MCH 28.5 (25.7-32.2) pg MCHC 32.3 (32.2-35.5) g/dl RDW Std Deviation 48.8 H (35.1-43.9) fL Plt Count 236 D (163-337) K/mm3 MPV 9.0 L (9.4-12.3) fl Neut % (Auto) 68.7 H (34.0-67.9) % Lymph % (Auto) 14.2 L (21.8-53.1) % [place] % (Auto) 13.7 H (5.3-12.2) % Eos % (Auto) 2.3 (0.8-7.0) Baso % (Auto) 0.5 (0.1-1.2) % Neut # (Auto) 7.63 H (1.78-5.38) K/mm3 Lymph # (Auto) 1.58 (1.32-3.57) K/mm3 [place] # (Auto) 1.52 H (0.30-0.82) K/mm3 Eos # (Auto) 0.25 (0.04-0.54) K/mm3 Baso # (Auto) 0.06 (0.01-0.08) K/mm3 Manual Slide Review Normal smear Sodium 144 (136-145) mEq/L Potassium 3.2 L (3.5-5.1) mEq/L Chloride 105 (98-107) mEq/L Carbon Dioxide 28 (21-32) mEq/L Anion Gap 14.2 (5-15) BUN 10 (7-18) mg/dL Creatinine 1.0 (0.7-1.3) mg/dL Est Cr Clr Drug Dosing 80.10 mL/min Estimated GFR (MDRD) > 60 (>60) mL/min BUN/Creatinine Ratio 10.0 L (14-18) Glucose 101 H (70-99) mg/dL POC Glucose (70-99) mg/dL Lactic Acid (0.4-2.0) mmol/L Calcium 8.9 (8.5-10.1) mg/dL Magnesium 1.5 L (1.8-2.4) mg/dL Total Bilirubin 0.6 (0.2-1.0) mg/dL AST 28 (15-37) U/L ALT 40 (16-63) U/L Alkaline Phosphatase 69 (46-116) U/L Troponin I < 0.017 (0.00-0.056) ng/mL C-Reactive Protein 0.8 (<1.0) mg/dL NT-Pro-B Natriuret Pep 248 H (0-125) pg/mL Total Protein 6.7 (6.4-8.2) g/dl Albumin 3.1 L (3.4-5.0) g/dl Globulin 3.6 gm/dL Albumin/Globulin Ratio 0.9 L (1-2) TSH 3rd Generation 1.030 (0.358-3.74) uIU/mL Urine Color (Yellow) Urine Appearance (Clear) Urine pH (5.0-8.0) Ur Specific [place] (1.005-1.030) Urine Protein (Negative) Urine Glucose (UA) (Negative) Urine Ketones (Negative) Urine Occult Blood (Negative) Urine Nitrite (Negative) Urine Bilirubin (Negative) Urine Urobilinogen (0.2-1.0) Ur Leukocyte Esterase (Negative) U Hyaline Cast (Auto) (0-5) /lpf Urine RBC (0-5) /hpf Urine WBC (0-5) /hpf Ur Squamous Epith Cells (0-5) /hpf Calcium Oxalate Crystal (NONE) Urine Bacteria (FEW) /hpf Urine Mucus (FEW) /hpf Urine Opiates Screen (NRUKLN=156) Ur Buprenorphine Scrn (CUTOFF=10) Ur Oxycodone Screen (GWX7OA=719) Urine Methadone Screen (YLI0ZB=162) Ur Propoxyphene Screen (TIODQE=483) Ur Barbiturates Screen (SRXMSF=160) Ur Tricyclics Screen (JQRQTZ=182) Ur Phencyclidine Scrn (CUTOFF=25) Ur Amphetamine Screen (OFFGFX=433) U Methamphetamines Scrn (XQLCIH=234) U Benzodiazepines Scrn (ETECBV=331) U Cocaine Metab Screen (DFHDFN=996) U Marijuana (THC) Screen (CUTOFF=50) Ethyl Alcohol 0.04 (0.00) gm% SARS-CoV-2 RNA (ISABELLA) (NEGATIVE) 02/26/21 02/26/21 02/26/21 Range/Units 16:00 18:09 18:30 WBC (4.23-9.07) K/mm3 RBC (4.63-6.08) M/mm3 Hgb (13.7-17.5) gm/dl Hct (40.1-51.0) % MCV (79.0-92.2) fl MCH (25.7-32.2) pg MCHC (32.2-35.5) g/dl RDW Std Deviation (35.1-43.9) fL Plt Count (163-337) K/mm3 MPV (9.4-12.3) fl Neut % (Auto) (34.0-67.9) % Lymph % (Auto) (21.8-53.1) % [place] % (Auto) (5.3-12.2) % Eos % (Auto) (0.8-7.0) Baso % (Auto) (0.1-1.2) % Neut # (Auto) (1.78-5.38) K/mm3 Lymph # (Auto) (1.32-3.57) K/mm3 [place] # (Auto) (0.30-0.82) K/mm3 Eos # (Auto) (0.04-0.54) K/mm3 Baso # (Auto) (0.01-0.08) K/mm3 Manual Slide Review Sodium (136-145) mEq/L Potassium (3.5-5.1) mEq/L Chloride (98-107) mEq/L Carbon Dioxide (21-32) mEq/L Anion Gap (5-15) BUN (7-18) mg/dL Creatinine (0.7-1.3) mg/dL Est Cr Clr Drug Dosing mL/min Estimated GFR (MDRD) (>60) mL/min BUN/Creatinine Ratio (14-18) Glucose (70-99) mg/dL POC Glucose (70-99) mg/dL Lactic Acid 3.2 H* 3.5 H* (0.4-2.0) mmol/L Calcium (8.5-10.1) mg/dL Magnesium (1.8-2.4) mg/dL Total Bilirubin (0.2-1.0) mg/dL AST (15-37) U/L ALT (16-63) U/L Alkaline Phosphatase (46-116) U/L Troponin I (0.00-0.056) ng/mL C-Reactive Protein (<1.0) mg/dL NT-Pro-B Natriuret Pep (0-125) pg/mL Total Protein (6.4-8.2) g/dl Albumin (3.4-5.0) g/dl Globulin gm/dL Albumin/Globulin Ratio (1-2) TSH 3rd Generation (0.358-3.74) uIU/mL Urine Color (Yellow) Urine Appearance (Clear) Urine pH (5.0-8.0) Ur Specific [place] (1.005-1.030) Urine Protein (Negative) Urine Glucose (UA) (Negative) Urine Ketones (Negative) Urine Occult Blood (Negative) Urine Nitrite (Negative) Urine Bilirubin (Negative) Urine Urobilinogen (0.2-1.0) Ur Leukocyte Esterase (Negative) U Hyaline Cast (Auto) (0-5) /lpf Urine RBC (0-5) /hpf Urine WBC (0-5) /hpf Ur Squamous Epith Cells (0-5) /hpf Calcium Oxalate Crystal (NONE) Urine Bacteria (FEW) /hpf Urine Mucus (FEW) /hpf Urine Opiates Screen (DQIFVJ=369) Ur Buprenorphine Scrn (CUTOFF=10) Ur Oxycodone Screen (AVM4GF=602) Urine Methadone Screen (DZS4KK=166) Ur Propoxyphene Screen (TSMHXJ=175) Ur Barbiturates Screen (NGBRLL=045) Ur Tricyclics Screen (KRRCUU=971) Ur Phencyclidine Scrn (CUTOFF=25) Ur Amphetamine Screen (OAINIA=887) U Methamphetamines Scrn (LVTSLU=614) U Benzodiazepines Scrn (WPTGIW=529) U Cocaine Metab Screen (BRLKNY=310) U Marijuana (THC) Screen (CUTOFF=50) Ethyl Alcohol (0.00) gm% SARS-CoV-2 RNA (ISABELLA) Negative (NEGATIVE) 02/26/21 02/26/21 02/26/21 Range/Units 20:18 22:15 22:15 WBC (4.23-9.07) K/mm3 RBC (4.63-6.08) M/mm3 Hgb (13.7-17.5) gm/dl Hct (40.1-51.0) % MCV (79.0-92.2) fl MCH (25.7-32.2) pg MCHC (32.2-35.5) g/dl RDW Std Deviation (35.1-43.9) fL Plt Count (163-337) K/mm3 MPV (9.4-12.3) fl Neut % (Auto) (34.0-67.9) % Lymph % (Auto) (21.8-53.1) % [place] % (Auto) (5.3-12.2) % Eos % (Auto) (0.8-7.0) Baso % (Auto) (0.1-1.2) % Neut # (Auto) (1.78-5.38) K/mm3 Lymph # (Auto) (1.32-3.57) K/mm3 [place] # (Auto) (0.30-0.82) K/mm3 Eos # (Auto) (0.04-0.54) K/mm3 Baso # (Auto) (0.01-0.08) K/mm3 Manual Slide Review Sodium (136-145) mEq/L Potassium (3.5-5.1) mEq/L Chloride (98-107) mEq/L Carbon Dioxide (21-32) mEq/L Anion Gap (5-15) BUN (7-18) mg/dL Creatinine (0.7-1.3) mg/dL Est Cr Clr Drug Dosing mL/min Estimated GFR (MDRD) (>60) mL/min BUN/Creatinine Ratio (14-18) Glucose (70-99) mg/dL POC Glucose 135 H (70-99) mg/dL Lactic Acid (0.4-2.0) mmol/L Calcium (8.5-10.1) mg/dL Magnesium (1.8-2.4) mg/dL Total Bilirubin (0.2-1.0) mg/dL AST (15-37) U/L ALT (16-63) U/L Alkaline Phosphatase (46-116) U/L Troponin I (0.00-0.056) ng/mL C-Reactive Protein (<1.0) mg/dL NT-Pro-B Natriuret Pep (0-125) pg/mL Total Protein (6.4-8.2) g/dl Albumin (3.4-5.0) g/dl Globulin gm/dL Albumin/Globulin Ratio (1-2) TSH 3rd Generation (0.358-3.74) uIU/mL Urine Color Yellow (Yellow) Urine Appearance Clear (Clear) Urine pH 6.0 (5.0-8.0) Ur Specific [place] 1.020 (1.005-1.030) Urine Protein Trace H (Negative) Urine Glucose (UA) Negative (Negative) Urine Ketones Negative (Negative) Urine Occult Blood Negative (Negative) Urine Nitrite Negative (Negative) Urine Bilirubin Negative (Negative) Urine Urobilinogen 0.2 (0.2-1.0) Ur Leukocyte Esterase Negative (Negative) U Hyaline Cast (Auto) 5-10 H (0-5) /lpf Urine RBC 0-5 (0-5) /hpf Urine WBC 0-5 (0-5) /hpf Ur Squamous Epith Cells 0-5 (0-5) /hpf Calcium Oxalate Crystal Few H (NONE) Urine Bacteria Few (FEW) /hpf Urine Mucus Moderate H (FEW) /hpf Urine Opiates Screen Presumptive positive H (KZLBLG=047) Ur Buprenorphine Scrn Negative (CUTOFF=10) Ur Oxycodone Screen Presumptive positive H (FLJ0SG=983) Urine Methadone Screen Negative (BRH5QH=888) Ur Propoxyphene Screen Negative (VILXRQ=031) Ur Barbiturates Screen Negative (URYITV=922) Ur Tricyclics Screen Negative (UHWVQQ=530) Ur Phencyclidine Scrn Negative (CUTOFF=25) Ur Amphetamine Screen Negative (ASLKCG=556) U Methamphetamines Scrn Negative (ZFPUAL=228) U Benzodiazepines Scrn Presumptive positive H (LGOTWX=722) U Cocaine Metab Screen Negative (YWSVLZ=298) U Marijuana (THC) Screen Negative (CUTOFF=50) Ethyl Alcohol (0.00) gm% SARS-CoV-2 RNA (ISABELLA) (NEGATIVE) 02/26/21 02/27/21 02/27/21 Range/Units 23:27 02:05 04:55 WBC 8.77 (4.23-9.07) K/mm3 RBC 3.59 L (4.63-6.08) M/mm3 Hgb 10.3 L D (13.7-17.5) gm/dl Hct 32.4 L (40.1-51.0) % MCV 90.3 (79.0-92.2) fl MCH 28.7 (25.7-32.2) pg MCHC 31.8 L (32.2-35.5) g/dl RDW Std Deviation 49.8 H (35.1-43.9) fL Plt Count 164 (163-337) K/mm3 MPV 8.9 L (9.4-12.3) fl Neut % (Auto) 60.1 (34.0-67.9) % Lymph % (Auto) 22.0 (21.8-53.1) % [place] % (Auto) 13.9 H (5.3-12.2) % Eos % (Auto) 3.5 (0.8-7.0) Baso % (Auto) 0.2 (0.1-1.2) % Neut # (Auto) 5.26 (1.78-5.38) K/mm3 Lymph # (Auto) 1.93 (1.32-3.57) K/mm3 [place] # (Auto) 1.22 H (0.30-0.82) K/mm3 Eos # (Auto) 0.31 (0.04-0.54) K/mm3 Baso # (Auto) 0.02 (0.01-0.08) K/mm3 Manual Slide Review Sodium (136-145) mEq/L Potassium (3.5-5.1) mEq/L Chloride (98-107) mEq/L Carbon Dioxide (21-32) mEq/L Anion Gap (5-15) BUN (7-18) mg/dL Creatinine (0.7-1.3) mg/dL Est Cr Clr Drug Dosing mL/min Estimated GFR (MDRD) (>60) mL/min BUN/Creatinine Ratio (14-18) Glucose (70-99) mg/dL POC Glucose (70-99) mg/dL Lactic Acid 2.4 H* 2.3 H* (0.4-2.0) mmol/L Calcium (8.5-10.1) mg/dL Magnesium (1.8-2.4) mg/dL Total Bilirubin (0.2-1.0) mg/dL AST (15-37) U/L ALT (16-63) U/L Alkaline Phosphatase (46-116) U/L Troponin I (0.00-0.056) ng/mL C-Reactive Protein (<1.0) mg/dL NT-Pro-B Natriuret Pep (0-125) pg/mL Total Protein (6.4-8.2) g/dl Albumin (3.4-5.0) g/dl Globulin gm/dL Albumin/Globulin Ratio (1-2) TSH 3rd Generation (0.358-3.74) uIU/mL Urine Color (Yellow) Urine Appearance (Clear) Urine pH (5.0-8.0) Ur Specific [place] (1.005-1.030) Urine Protein (Negative) Urine Glucose (UA) (Negative) Urine Ketones (Negative) Urine Occult Blood (Negative) Urine Nitrite (Negative) Urine Bilirubin (Negative) Urine Urobilinogen (0.2-1.0) Ur Leukocyte Esterase (Negative) U Hyaline Cast (Auto) (0-5) /lpf Urine RBC (0-5) /hpf Urine WBC (0-5) /hpf Ur Squamous Epith Cells (0-5) /hpf Calcium Oxalate Crystal (NONE) Urine Bacteria (FEW) /hpf Urine Mucus (FEW) /hpf Urine Opiates Screen (HTASDG=973) Ur Buprenorphine Scrn (CUTOFF=10) Ur Oxycodone Screen (ZWF8GJ=376) Urine Methadone Screen (VDT3KY=794) Ur Propoxyphene Screen (GUOWYM=285) Ur Barbiturates Screen (DTKGHU=769) Ur Tricyclics Screen (VLGRBX=451) Ur Phencyclidine Scrn (CUTOFF=25) Ur Amphetamine Screen (TNMTHA=125) U Methamphetamines Scrn (XWMLSQ=460) U Benzodiazepines Scrn (PEOXAC=280) U Cocaine Metab Screen (KLMPZA=083) U Marijuana (THC) Screen (CUTOFF=50) Ethyl Alcohol (0.00) gm% SARS-CoV-2 RNA (ISABELLA) (NEGATIVE) 02/27/21 02/27/21 02/27/21 Range/Units 04:55 04:55 06:31 WBC (4.23-9.07) K/mm3 RBC (4.63-6.08) M/mm3 Hgb (13.7-17.5) gm/dl Hct (40.1-51.0) % MCV (79.0-92.2) fl MCH (25.7-32.2) pg MCHC (32.2-35.5) g/dl RDW Std Deviation (35.1-43.9) fL Plt Count (163-337) K/mm3 MPV (9.4-12.3) fl Neut % (Auto) (34.0-67.9) % Lymph % (Auto) (21.8-53.1) % [place] % (Auto) (5.3-12.2) % Eos % (Auto) (0.8-7.0) Baso % (Auto) (0.1-1.2) % Neut # (Auto) (1.78-5.38) K/mm3 Lymph # (Auto) (1.32-3.57) K/mm3 [place] # (Auto) (0.30-0.82) K/mm3 Eos # (Auto) (0.04-0.54) K/mm3 Baso # (Auto) (0.01-0.08) K/mm3 Manual Slide Review Sodium 147 H (136-145) mEq/L Potassium 4.2 (3.5-5.1) mEq/L Chloride 112 H (98-107) mEq/L Carbon Dioxide 25 (21-32) mEq/L Anion Gap 14.2 (5-15) BUN 8 (7-18) mg/dL Creatinine 0.9 (0.7-1.3) mg/dL Est Cr Clr Drug Dosing 83.39 mL/min Estimated GFR (MDRD) > 60 (>60) mL/min BUN/Creatinine Ratio 8.9 L (14-18) Glucose 82 (70-99) mg/dL POC Glucose 70 (70-99) mg/dL Lactic Acid 1.9 (0.4-2.0) mmol/L Calcium 8.2 L (8.5-10.1) mg/dL Magnesium (1.8-2.4) mg/dL Total Bilirubin (0.2-1.0) mg/dL AST (15-37) U/L ALT (16-63) U/L Alkaline Phosphatase (46-116) U/L Troponin I (0.00-0.056) ng/mL C-Reactive Protein (<1.0) mg/dL NT-Pro-B Natriuret Pep (0-125) pg/mL Total Protein (6.4-8.2) g/dl Albumin (3.4-5.0) g/dl Globulin gm/dL Albumin/Globulin Ratio (1-2) TSH 3rd Generation (0.358-3.74) uIU/mL Urine Color (Yellow) Urine Appearance (Clear) Urine pH (5.0-8.0) Ur Specific [place] (1.005-1.030) Urine Protein (Negative) Urine Glucose (UA) (Negative) Urine Ketones (Negative) Urine Occult Blood (Negative) Urine Nitrite (Negative) Urine Bilirubin (Negative) Urine Urobilinogen (0.2-1.0) Ur Leukocyte Esterase (Negative) U Hyaline Cast (Auto) (0-5) /lpf Urine RBC (0-5) /hpf Urine WBC (0-5) /hpf Ur Squamous Epith Cells (0-5) /hpf Calcium Oxalate Crystal (NONE) Urine Bacteria (FEW) /hpf Urine Mucus (FEW) /hpf Urine Opiates Screen (ANJZKS=763) Ur Buprenorphine Scrn (CUTOFF=10) Ur Oxycodone Screen (QCB4VK=839) Urine Methadone Screen (FMZ0PP=996) Ur Propoxyphene Screen (NDYFFD=290) Ur Barbiturates Screen (LVJZRN=884) Ur Tricyclics Screen (OUFYHF=004) Ur Phencyclidine Scrn (CUTOFF=25) Ur Amphetamine Screen (OXMZIG=496) U Methamphetamines Scrn (PNZLOA=400) U Benzodiazepines Scrn (PFDDTJ=502) U Cocaine Metab Screen (YXBGSZ=007) U Marijuana (THC) Screen (CUTOFF=50) Ethyl Alcohol (0.00) gm% SARS-CoV-2 RNA (ISABELLA) (NEGATIVE) Med Orders - Current: Current Medications Acetaminophen (Acetaminophen 325 Mg Tab) 650 mg PO Q4H PRN PRN Reason: Pain (Mild 1-3)/fever Amiodarone HCl (Amiodarone 200 Mg Tab) 200 mg PO BID [facility] Last Admin: 02/27/21 08:35 Dose: 200 mg Documented by: Folic Acid (Folic Acid 1 Mg Tab) 1 mg PO DAILY [facility] Stop: 03/01/21 09:01 Last Admin: 02/27/21 08:35 Dose: 1 mg Documented by: Gabapentin (Gabapentin 600 Mg Tab) 600 mg PO BEDTIME DIAMANTE Last Admin: 02/26/21 20:20 Dose: 600 mg Documented by: Hydromorphone HCl (Hydromorphone 0.5 Mg/0.5 Ml Syringe) 0.5 mg IVPUSH Q2H PRN PRN Reason: Pain (severe 7-10) Last Admin: 02/27/21 01:16 Dose: 0.5 mg Documented by: Sodium Chloride (Sodium Chloride 0.45%) 1,000 mls @ 100 mls/hr IV ASDIRECTED [facility] Last Admin: 02/27/21 07:45 Dose: 100 mls/hr Documented by: Insulin Human Lispro (Insulin Lispro 100 Unit/Ml 10 Ml Vial) 0 unit SUBCUT QIDACANDBED [facility]; Protocol Last Admin: 02/27/21 06:35 Dose: Not Given Documented by: Lorazepam (Lorazepam 1 Mg Tab) 1 - 2 mg PO ASDIRECTED [facility]; Protocol Melatonin (Melatonin 3 Mg Tab) 6 mg PO BEDTIME PRN PRN Reason: Sleep Last Admin: 02/26/21 20:21 Dose: 6 mg Documented by: Metoprolol Tartrate (Metoprolol Tartrate 100 Mg Tab) 100 mg PO BID [facility] Last Admin: 02/27/21 08:34 Dose: 100 mg Documented by: Ondansetron HCl (Ondansetron 4 Mg/2 Ml Sdv) 4 mg IV Q4H PRN PRN Reason: Nausea/Vomiting Oxycodone HCl (Oxycodone 5 Mg Tab) 5 mg PO Q4H PRN PRN Reason: Pain (moderate 4-6) Last Admin: 02/27/21 06:44 Dose: 5 mg Documented by: Pantoprazole Sodium (Pantoprazole 40 Mg Tab.Cr) 40 mg PO ACBREAKFAST [facility] Last Admin: 02/27/21 06:25 Dose: 40 mg Documented by: Potassium Chloride (Potassium Chloride 20 Meq Tab.Er) 40 meq PO BEDTIME [facility] Last Admin: 02/26/21 20:20 Dose: 40 meq Documented by: Rivaroxaban (Rivaroxaban 10 Mg Tab) 20 mg PO DAILY [facility] Last Admin: 02/27/21 08:33 Dose: 20 mg Documented by: Sodium Chloride (Sodium Chloride 0.9% 10 Ml Syringe) 10 ml FLUSH ASDIRECTED PRN PRN Reason: Keep Vein Open Last Admin: 02/26/21 11:58 Dose: 10 ml Documented by: Thiamine HCl (Thiamine 100 Mg Tab) 100 mg PO DAILY [facility] Last Admin: 02/27/21 08:34 Dose: 100 mg Documented by: Discontinued Medications Diltiazem HCl (Diltiazem 50 Mg/10 Ml Sdv) 10 mg IVPUSH ONETIME ONE Stop: 02/26/21 14:22 Last Admin: 02/26/21 14:27 Dose: 10 mg Documented by: Diltiazem HCl (Diltiazem 50 Mg/10 Ml Sdv) 10 mg IVPUSH ONETIME ONE Stop: 02/26/21 15:19 Last Admin: 02/26/21 15:22 Dose: 10 mg Documented by: Diltiazem HCl (Diltiazem 120 Mg Cap.Cd) 360 mg PO DAILY [facility] Sodium Chloride (Normal Saline) 1,000 mls @ 150 mls/hr IV ASDIRECTED [facility] Last Admin: 02/27/21 00:46 Dose: 150 mls/hr Documented by: Sodium Chloride (Normal Saline) 1,000 mls @ 999 mls/hr IV ONETIME ONE Stop: 02/26/21 13:58 Last Admin: 02/26/21 13:08 Dose: 999 mls/hr Documented by: Diltiazem HCl 100 mg/ Sodium (Chloride) 100 mls @ 5 mls/hr IV TITRATE DIAMANTE; Protocol Last Titration: 02/27/21 00:01 Dose: 0 mg/hr, 0 mls/hr Documented by: Lactated Ringer's (Ringers, Lactated) 1,000 mls @ 500 mls/hr IV .BOLUS ONE Stop: 02/26/21 18:44 Last Admin: 02/26/21 17:23 Dose: 500 mls/hr Documented by: Piperacillin Sod/Tazobactam (Sod 4.5 gm/ Sodium Chloride) 100 mls @ 25 mls/hr IV Q8H DIAMANTE Last Admin: 02/27/21 02:33 Dose: 25 mls/hr Documented by: Magnesium Sulfate/Dextrose 1 (gm/ Premix) 100 mls @ 100 mls/hr IV ONETIME ONE Stop: 02/26/21 17:59 Last Admin: 02/26/21 17:51 Dose: 100 mls/hr Documented by: Piperacillin Sod/Tazobactam (Sod 4.5 gm/ Sodium Chloride) 100 mls @ 200 mls/hr IV ONETIME ONE Stop: 02/26/21 19:29 Piperacillin Sod/Tazobactam (Sod 4.5 gm/ Sodium Chloride) 100 mls @ 200 mls/hr IV ONETIME ONE Stop: 02/26/21 20:29 Last Admin: 02/26/21 20:00 Dose: 200 mls/hr Documented by: Sodium Chloride (Normal Saline) 1,000 mls @ 500 mls/hr IV ASDIRECTED DIAMANTE Stop: 02/26/21 23:06 Last Admin: 02/26/21 21:09 Dose: 500 mls/hr Documented by: Lorazepam (Lorazepam 2 Mg/Ml Sdv) 1 mg IVPUSH ONETIME ONE Stop: 02/26/21 16:49 Last Admin: 02/26/21 16:52 Dose: 1 mg Documented by: Magnesium Oxide (Magnesium Oxide 400 Mg Tab) 400 mg PO ONETIME ONE Stop: 02/26/21 13:00 Last Admin: 02/26/21 13:19 Dose: 400 mg Documented by: Metoclopramide HCl (Metoclopramide 10 Mg/2 Ml Sdv) 5 mg IVPUSH ONETIME ONE Stop: 02/26/21 11:50 Last Admin: 02/26/21 11:57 Dose: 5 mg Documented by: Metoprolol Tartrate (Metoprolol Tartrate 5 Mg/5 Ml Sdv) 5 mg IVPUSH ONETIME ONE Stop: 02/26/21 11:48 Last Admin: 02/26/21 11:57 Dose: 5 mg Documented by: Metoprolol Tartrate (Metoprolol Tartrate 5 Mg/5 Ml Sdv) 5 mg IVPUSH ONETIME ONE Stop: 02/26/21 12:20 Last Admin: 02/26/21 12:46 Dose: 5 mg Documented by: Metoprolol Tartrate (Metoprolol Tartrate 50 Mg Tab) 75 mg PO BID DIAMANTE Potassium Chloride (Potassium Chloride 20 Meq Tab.Er) 40 meq PO ONETIME ONE Stop: 02/26/21 13:00 Last Admin: 02/26/21 13:11 Dose: 40 meq Documented by: - Exam Physical Findings Comments:: Gen: no acute distress HEENT: NCAT EOMI MMM Neck: Supple CV: Tacycardic; IRIR Abd: soft, nt, nd Neuro: AOX3, CN intact MSK: age appropriate muscle mass - Patient Data Lab Results Last 24 hrs: Laboratory Results - last 24 hr 02/26/21 02/26/21 02/26/21 Range/Units 11:55 11:55 11:55 WBC 11.11 H (4.23-9.07) K/mm3 RBC 4.18 L (4.63-6.08) M/mm3 Hgb 11.9 L D (13.7-17.5) gm/dl Hct 36.8 L (40.1-51.0) % MCV 88.0 D (79.0-92.2) fl MCH 28.5 (25.7-32.2) pg MCHC 32.3 (32.2-35.5) g/dl RDW Std Deviation 48.8 H (35.1-43.9) fL Plt Count 236 D (163-337) K/mm3 MPV 9.0 L (9.4-12.3) fl Neut % (Auto) 68.7 H (34.0-67.9) % Lymph % (Auto) 14.2 L (21.8-53.1) % [place] % (Auto) 13.7 H (5.3-12.2) % Eos % (Auto) 2.3 (0.8-7.0) Baso % (Auto) 0.5 (0.1-1.2) % Neut # (Auto) 7.63 H (1.78-5.38) K/mm3 Lymph # (Auto) 1.58 (1.32-3.57) K/mm3 [place] # (Auto) 1.52 H (0.30-0.82) K/mm3 Eos # (Auto) 0.25 (0.04-0.54) K/mm3 Baso # (Auto) 0.06 (0.01-0.08) K/mm3 Manual Slide Review Normal smear Sodium 144 (136-145) mEq/L Potassium 3.2 L (3.5-5.1) mEq/L Chloride 105 (98-107) mEq/L Carbon Dioxide 28 (21-32) mEq/L Anion Gap 14.2 (5-15) BUN 10 (7-18) mg/dL Creatinine 1.0 (0.7-1.3) mg/dL Est Cr Clr Drug Dosing 80.10 mL/min Estimated GFR (MDRD) > 60 (>60) mL/min BUN/Creatinine Ratio 10.0 L (14-18) Glucose 101 H (70-99) mg/dL POC Glucose (70-99) mg/dL Lactic Acid (0.4-2.0) mmol/L Calcium 8.9 (8.5-10.1) mg/dL Magnesium 1.5 L (1.8-2.4) mg/dL Total Bilirubin 0.6 (0.2-1.0) mg/dL AST 28 (15-37) U/L ALT 40 (16-63) U/L Alkaline Phosphatase 69 (46-116) U/L Troponin I < 0.017 (0.00-0.056) ng/mL C-Reactive Protein 0.8 (<1.0) mg/dL NT-Pro-B Natriuret Pep 248 H (0-125) pg/mL Total Protein 6.7 (6.4-8.2) g/dl Albumin 3.1 L (3.4-5.0) g/dl Globulin 3.6 gm/dL Albumin/Globulin Ratio 0.9 L (1-2) TSH 3rd Generation 1.030 (0.358-3.74) uIU/mL Urine Color (Yellow) Urine Appearance (Clear) Urine pH (5.0-8.0) Ur Specific [place] (1.005-1.030) Urine Protein (Negative) Urine Glucose (UA) (Negative) Urine Ketones (Negative) Urine Occult Blood (Negative) Urine Nitrite (Negative) Urine Bilirubin (Negative) Urine Urobilinogen (0.2-1.0) Ur Leukocyte Esterase (Negative) U Hyaline Cast (Auto) (0-5) /lpf Urine RBC (0-5) /hpf Urine WBC (0-5) /hpf Ur Squamous Epith Cells (0-5) /hpf Calcium Oxalate Crystal (NONE) Urine Bacteria (FEW) /hpf Urine Mucus (FEW) /hpf Urine Opiates Screen (NCWQSL=896) Ur Buprenorphine Scrn (CUTOFF=10) Ur Oxycodone Screen (NRM4JB=089) Urine Methadone Screen (JTL1RA=178) Ur Propoxyphene Screen (SXCTXN=003) Ur Barbiturates Screen (SEGLTO=152) Ur Tricyclics Screen (HIDWCP=767) Ur Phencyclidine Scrn (CUTOFF=25) Ur Amphetamine Screen (HKWIFY=194) U Methamphetamines Scrn (KVNYOI=430) U Benzodiazepines Scrn (TCTFTN=805) U Cocaine Metab Screen (IXUEVR=198) U Marijuana (THC) Screen (CUTOFF=50) Ethyl Alcohol 0.04 (0.00) gm% SARS-CoV-2 RNA (ISABELLA) (NEGATIVE) 02/26/21 02/26/21 02/26/21 Range/Units 16:00 18:09 18:30 WBC (4.23-9.07) K/mm3 RBC (4.63-6.08) M/mm3 Hgb (13.7-17.5) gm/dl Hct (40.1-51.0) % MCV (79.0-92.2) fl MCH (25.7-32.2) pg MCHC (32.2-35.5) g/dl RDW Std Deviation (35.1-43.9) fL Plt Count (163-337) K/mm3 MPV (9.4-12.3) fl Neut % (Auto) (34.0-67.9) % Lymph % (Auto) (21.8-53.1) % [place] % (Auto) (5.3-12.2) % Eos % (Auto) (0.8-7.0) Baso % (Auto) (0.1-1.2) % Neut # (Auto) (1.78-5.38) K/mm3 Lymph # (Auto) (1.32-3.57) K/mm3 [place] # (Auto) (0.30-0.82) K/mm3 Eos # (Auto) (0.04-0.54) K/mm3 Baso # (Auto) (0.01-0.08) K/mm3 Manual Slide Review Sodium (136-145) mEq/L Potassium (3.5-5.1) mEq/L Chloride (98-107) mEq/L Carbon Dioxide (21-32) mEq/L Anion Gap (5-15) BUN (7-18) mg/dL Creatinine (0.7-1.3) mg/dL Est Cr Clr Drug Dosing mL/min Estimated GFR (MDRD) (>60) mL/min BUN/Creatinine Ratio (14-18) Glucose (70-99) mg/dL POC Glucose (70-99) mg/dL Lactic Acid 3.2 H* 3.5 H* (0.4-2.0) mmol/L Calcium (8.5-10.1) mg/dL Magnesium (1.8-2.4) mg/dL Total Bilirubin (0.2-1.0) mg/dL AST (15-37) U/L ALT (16-63) U/L Alkaline Phosphatase (46-116) U/L Troponin I (0.00-0.056) ng/mL C-Reactive Protein (<1.0) mg/dL NT-Pro-B Natriuret Pep (0-125) pg/mL Total Protein (6.4-8.2) g/dl Albumin (3.4-5.0) g/dl Globulin gm/dL Albumin/Globulin Ratio (1-2) TSH 3rd Generation (0.358-3.74) uIU/mL Urine Color (Yellow) Urine Appearance (Clear) Urine pH (5.0-8.0) Ur Specific [place] (1.005-1.030) Urine Protein (Negative) Urine Glucose (UA) (Negative) Urine Ketones (Negative) Urine Occult Blood (Negative) Urine Nitrite (Negative) Urine Bilirubin (Negative) Urine Urobilinogen (0.2-1.0) Ur Leukocyte Esterase (Negative) U Hyaline Cast (Auto) (0-5) /lpf Urine RBC (0-5) /hpf Urine WBC (0-5) /hpf Ur Squamous Epith Cells (0-5) /hpf Calcium Oxalate Crystal (NONE) Urine Bacteria (FEW) /hpf Urine Mucus (FEW) /hpf Urine Opiates Screen (GFXJNK=924) Ur Buprenorphine Scrn (CUTOFF=10) Ur Oxycodone Screen (LSA7OO=569) Urine Methadone Screen (CAE7NY=468) Ur Propoxyphene Screen (YNFPVU=004) Ur Barbiturates Screen (ANWOPK=668) Ur Tricyclics Screen (BIKYIP=462) Ur Phencyclidine Scrn (CUTOFF=25) Ur Amphetamine Screen (KKCFUE=847) U Methamphetamines Scrn (GAENPM=460) U Benzodiazepines Scrn (GMYEEV=333) U Cocaine Metab Screen (HCBFPA=368) U Marijuana (THC) Screen (CUTOFF=50) Ethyl Alcohol (0.00) gm% SARS-CoV-2 RNA (ISABELLA) Negative (NEGATIVE) 02/26/21 02/26/21 02/26/21 Range/Units 20:18 22:15 22:15 WBC (4.23-9.07) K/mm3 RBC (4.63-6.08) M/mm3 Hgb (13.7-17.5) gm/dl Hct (40.1-51.0) % MCV (79.0-92.2) fl MCH (25.7-32.2) pg MCHC (32.2-35.5) g/dl RDW Std Deviation (35.1-43.9) fL Plt Count (163-337) K/mm3 MPV (9.4-12.3) fl Neut % (Auto) (34.0-67.9) % Lymph % (Auto) (21.8-53.1) % [place] % (Auto) (5.3-12.2) % Eos % (Auto) (0.8-7.0) Baso % (Auto) (0.1-1.2) % Neut # (Auto) (1.78-5.38) K/mm3 Lymph # (Auto) (1.32-3.57) K/mm3 [place] # (Auto) (0.30-0.82) K/mm3 Eos # (Auto) (0.04-0.54) K/mm3 Baso # (Auto) (0.01-0.08) K/mm3 Manual Slide Review Sodium (136-145) mEq/L Potassium (3.5-5.1) mEq/L Chloride (98-107) mEq/L Carbon Dioxide (21-32) mEq/L Anion Gap (5-15) BUN (7-18) mg/dL Creatinine (0.7-1.3) mg/dL Est Cr Clr Drug Dosing mL/min Estimated GFR (MDRD) (>60) mL/min BUN/Creatinine Ratio (14-18) Glucose (70-99) mg/dL POC Glucose 135 H (70-99) mg/dL Lactic Acid (0.4-2.0) mmol/L Calcium (8.5-10.1) mg/dL Magnesium (1.8-2.4) mg/dL Total Bilirubin (0.2-1.0) mg/dL AST (15-37) U/L ALT (16-63) U/L Alkaline Phosphatase (46-116) U/L Troponin I (0.00-0.056) ng/mL C-Reactive Protein (<1.0) mg/dL NT-Pro-B Natriuret Pep (0-125) pg/mL Total Protein (6.4-8.2) g/dl Albumin (3.4-5.0) g/dl Globulin gm/dL Albumin/Globulin Ratio (1-2) TSH 3rd Generation (0.358-3.74) uIU/mL Urine Color Yellow (Yellow) Urine Appearance Clear (Clear) Urine pH 6.0 (5.0-8.0) Ur Specific [place] 1.020 (1.005-1.030) Urine Protein Trace H (Negative) Urine Glucose (UA) Negative (Negative) Urine Ketones Negative (Negative) Urine Occult Blood Negative (Negative) Urine Nitrite Negative (Negative) Urine Bilirubin Negative (Negative) Urine Urobilinogen 0.2 (0.2-1.0) Ur Leukocyte Esterase Negative (Negative) U Hyaline Cast (Auto) 5-10 H (0-5) /lpf Urine RBC 0-5 (0-5) /hpf Urine WBC 0-5 (0-5) /hpf Ur Squamous Epith Cells 0-5 (0-5) /hpf Calcium Oxalate Crystal Few H (NONE) Urine Bacteria Few (FEW) /hpf Urine Mucus Moderate H (FEW) /hpf Urine Opiates Screen Presumptive positive H (DTOEFD=738) Ur Buprenorphine Scrn Negative (CUTOFF=10) Ur Oxycodone Screen Presumptive positive H (NAJ3RI=626) Urine Methadone Screen Negative (IRN7AW=266) Ur Propoxyphene Screen Negative (TFXQXD=863) Ur Barbiturates Screen Negative (SAZZGO=870) Ur Tricyclics Screen Negative (SHGMCX=563) Ur Phencyclidine Scrn Negative (CUTOFF=25) Ur Amphetamine Screen Negative (CHMVDR=416) U Methamphetamines Scrn Negative (SEGPOT=055) U Benzodiazepines Scrn Presumptive positive H (ZAHZLJ=198) U Cocaine Metab Screen Negative (QKTZOA=718) U Marijuana (THC) Screen Negative (CUTOFF=50) Ethyl Alcohol (0.00) gm% SARS-CoV-2 RNA (ISABELLA) (NEGATIVE) 02/26/21 02/27/21 02/27/21 Range/Units 23:27 02:05 04:55 WBC 8.77 (4.23-9.07) K/mm3 RBC 3.59 L (4.63-6.08) M/mm3 Hgb 10.3 L D (13.7-17.5) gm/dl Hct 32.4 L (40.1-51.0) % MCV 90.3 (79.0-92.2) fl MCH 28.7 (25.7-32.2) pg MCHC 31.8 L (32.2-35.5) g/dl RDW Std Deviation 49.8 H (35.1-43.9) fL Plt Count 164 (163-337) K/mm3 MPV 8.9 L (9.4-12.3) fl Neut % (Auto) 60.1 (34.0-67.9) % Lymph % (Auto) 22.0 (21.8-53.1) % [place] % (Auto) 13.9 H (5.3-12.2) % Eos % (Auto) 3.5 (0.8-7.0) Baso % (Auto) 0.2 (0.1-1.2) % Neut # (Auto) 5.26 (1.78-5.38) K/mm3 Lymph # (Auto) 1.93 (1.32-3.57) K/mm3 [place] # (Auto) 1.22 H (0.30-0.82) K/mm3 Eos # (Auto) 0.31 (0.04-0.54) K/mm3 Baso # (Auto) 0.02 (0.01-0.08) K/mm3 Manual Slide Review Sodium (136-145) mEq/L Potassium (3.5-5.1) mEq/L Chloride (98-107) mEq/L Carbon Dioxide (21-32) mEq/L Anion Gap (5-15) BUN (7-18) mg/dL Creatinine (0.7-1.3) mg/dL Est Cr Clr Drug Dosing mL/min Estimated GFR (MDRD) (>60) mL/min BUN/Creatinine Ratio (14-18) Glucose (70-99) mg/dL POC Glucose (70-99) mg/dL Lactic Acid 2.4 H* 2.3 H* (0.4-2.0) mmol/L Calcium (8.5-10.1) mg/dL Magnesium (1.8-2.4) mg/dL Total Bilirubin (0.2-1.0) mg/dL AST (15-37) U/L ALT (16-63) U/L Alkaline Phosphatase (46-116) U/L Troponin I (0.00-0.056) ng/mL C-Reactive Protein (<1.0) mg/dL NT-Pro-B Natriuret Pep (0-125) pg/mL Total Protein (6.4-8.2) g/dl Albumin (3.4-5.0) g/dl Globulin gm/dL Albumin/Globulin Ratio (1-2) TSH 3rd Generation (0.358-3.74) uIU/mL Urine Color (Yellow) Urine Appearance (Clear) Urine pH (5.0-8.0) Ur Specific [place] (1.005-1.030) Urine Protein (Negative) Urine Glucose (UA) (Negative) Urine Ketones (Negative) Urine Occult Blood (Negative) Urine Nitrite (Negative) Urine Bilirubin (Negative) Urine Urobilinogen (0.2-1.0) Ur Leukocyte Esterase (Negative) U Hyaline Cast (Auto) (0-5) /lpf Urine RBC (0-5) /hpf Urine WBC (0-5) /hpf Ur Squamous Epith Cells (0-5) /hpf Calcium Oxalate Crystal (NONE) Urine Bacteria (FEW) /hpf Urine Mucus (FEW) /hpf Urine Opiates Screen (QWAUTU=722) Ur Buprenorphine Scrn (CUTOFF=10) Ur Oxycodone Screen (KEC2CF=717) Urine Methadone Screen (JUC6XO=059) Ur Propoxyphene Screen (UTWAHG=931) Ur Barbiturates Screen (RWOXZT=651) Ur Tricyclics Screen (NXKSTK=655) Ur Phencyclidine Scrn (CUTOFF=25) Ur Amphetamine Screen (PIXQNG=387) U Methamphetamines Scrn (EFTQZM=728) U Benzodiazepines Scrn (EUOTMF=125) U Cocaine Metab Screen (WYCQPF=441) U Marijuana (THC) Screen (CUTOFF=50) Ethyl Alcohol (0.00) gm% SARS-CoV-2 RNA (ISABELLA) (NEGATIVE) 02/27/21 02/27/21 02/27/21 Range/Units 04:55 04:55 06:31 WBC (4.23-9.07) K/mm3 RBC (4.63-6.08) M/mm3 Hgb (13.7-17.5) gm/dl Hct (40.1-51.0) % MCV (79.0-92.2) fl MCH (25.7-32.2) pg MCHC (32.2-35.5) g/dl RDW Std Deviation (35.1-43.9) fL Plt Count (163-337) K/mm3 MPV (9.4-12.3) fl Neut % (Auto) (34.0-67.9) % Lymph % (Auto) (21.8-53.1) % [place] % (Auto) (5.3-12.2) % Eos % (Auto) (0.8-7.0) Baso % (Auto) (0.1-1.2) % Neut # (Auto) (1.78-5.38) K/mm3 Lymph # (Auto) (1.32-3.57) K/mm3 [place] # (Auto) (0.30-0.82) K/mm3 Eos # (Auto) (0.04-0.54) K/mm3 Baso # (Auto) (0.01-0.08) K/mm3 Manual Slide Review Sodium 147 H (136-145) mEq/L Potassium 4.2 (3.5-5.1) mEq/L Chloride 112 H (98-107) mEq/L Carbon Dioxide 25 (21-32) mEq/L Anion Gap 14.2 (5-15) BUN 8 (7-18) mg/dL Creatinine 0.9 (0.7-1.3) mg/dL Est Cr Clr Drug Dosing 83.39 mL/min Estimated GFR (MDRD) > 60 (>60) mL/min BUN/Creatinine Ratio 8.9 L (14-18) Glucose 82 (70-99) mg/dL POC Glucose 70 (70-99) mg/dL Lactic Acid 1.9 (0.4-2.0) mmol/L Calcium 8.2 L (8.5-10.1) mg/dL Magnesium (1.8-2.4) mg/dL Total Bilirubin (0.2-1.0) mg/dL AST (15-37) U/L ALT (16-63) U/L Alkaline Phosphatase (46-116) U/L Troponin I (0.00-0.056) ng/mL C-Reactive Protein (<1.0) mg/dL NT-Pro-B Natriuret Pep (0-125) pg/mL Total Protein (6.4-8.2) g/dl Albumin (3.4-5.0) g/dl Globulin gm/dL Albumin/Globulin Ratio (1-2) TSH 3rd Generation (0.358-3.74) uIU/mL Urine Color (Yellow) Urine Appearance (Clear) Urine pH (5.0-8.0) Ur Specific [place] (1.005-1.030) Urine Protein (Negative) Urine Glucose (UA) (Negative) Urine Ketones (Negative) Urine Occult Blood (Negative) Urine Nitrite (Negative) Urine Bilirubin (Negative) Urine Urobilinogen (0.2-1.0) Ur Leukocyte Esterase (Negative) U Hyaline Cast (Auto) (0-5) /lpf Urine RBC (0-5) /hpf Urine WBC (0-5) /hpf Ur Squamous Epith Cells (0-5) /hpf Calcium Oxalate Crystal (NONE) Urine Bacteria (FEW) /hpf Urine Mucus (FEW) /hpf Urine Opiates Screen (RXNBHB=186) Ur Buprenorphine Scrn (CUTOFF=10) Ur Oxycodone Screen (ZJK6NX=303) Urine Methadone Screen (MGG2VA=390) Ur Propoxyphene Screen (JXGCAF=323) Ur Barbiturates Screen (EGOVQN=548) Ur Tricyclics Screen (UAVWUS=855) Ur Phencyclidine Scrn (CUTOFF=25) Ur Amphetamine Screen (LTTAYH=574) U Methamphetamines Scrn (CSRLXL=349) U Benzodiazepines Scrn (JUEAEO=422) U Cocaine Metab Screen (QEVJRM=702) U Marijuana (THC) Screen (CUTOFF=50) Ethyl Alcohol (0.00) gm% SARS-CoV-2 RNA (ISABELLA) (NEGATIVE) Result Diagrams: 02/27/21 04:55 02/27/21 04:55 Sepsis Event Note - Evaluation Sepsis Screening Result: No Definite Risk - Focused Exam Vital Signs: Vital Signs Temp Pulse Resp BP BP Pulse Ox Pulse Ox 02/27/21 08:34 132 H 114/92 H 02/27/21 08:00 97.7 F 22 H 114/92 H 91 L 02/27/21 06:00 20 120/88 100 02/27/21 04:01 96 19 92 L 02/27/21 04:00 97.9 F 17 119/8 L 92 L 02/27/21 02:00 102 H 17 116/92 H 94 L 02/27/21 01:00 94 L 02/27/21 00:00 97.6 F 19 108/85 92 L 02/26/21 23:01 92 19 95 02/26/21 23:00 96 20 104/90 104/90 94 L 02/26/21 22:59 93 19 90 L 02/26/21 22:01 83 19 93 L 02/26/21 22:00 108/82 - Problem List Review Problem List Initiated/Reviewed/Updated: Yes - My Orders Last 24 Hours: My Active Orders 02/26/21 Dinner Regular Diet [DIET] 02/26/21 17:01 Cardiac Monitoring [RC] CONTINUOUS Height and Weight [RC] 0400 Intake and Output [RC] 04,16 Oxygen Therapy [RC] PRN Up With Assistance [RC] ASDIRECTED VTE/DVT Education [RC] Consult to Case Management/Elephant Keeper [CONS] Routine Acetaminophen [TylenoL] 650 mg PO Q4H PRN HYDROmorphone [Dilaudid] 0.5 mg IVPUSH Q2H PRN Ondansetron [Zofran] 4 mg IV Q4H PRN oxyCODONE 5 mg PO Q4H PRN Resuscitation Status Routine 02/26/21 17:04 CIWAA Assessment [RC] Q4HR Notify Provider [RC] PRN 02/26/21 17:06 Melatonin 6 mg PO BEDTIME PRN 02/26/21 17:09 Blood Glucose Check, Bedside [RC] QIDACANDBED 02/26/21 17:15 LORazepam [Ativan] 1 - 2 mg PO ASDIRECTED 02/26/21 17:19 Consult to Physical Therapy [PT Evaluation and Treatment] [CONS] Routine 02/26/21 18:09 BLOOD CULTURE [MREF] Routine 02/26/21 18:15 BLOOD CULTURE [MREF] Routine 02/26/21 21:00 Gabapentin [Neurontin] 600 mg PO BEDTIME Potassium Chloride [Klor-Con M20] 40 meq PO BEDTIME 02/26/21 22:00 Insulin Lispro [HumaLOG] See Protocol SUBCUT QIDACANDBED 02/27/21 06:00 Pantoprazole [ProTONIX] 40 mg PO ACBREAKFAST 02/27/21 07:30 Sodium Chloride 0.45% 1,000 ml IV ASDIRECTED 02/27/21 08:00 Hip wo Cont Lt [CT] Routine 02/27/21 09:00 Amiodarone [Cordarone] 200 mg PO BID Folic Acid 1 mg PO DAILY Metoprolol Tartrate [Lopressor] 100 mg PO BID Rivaroxaban [Xarelto] 20 mg PO DAILY Thiamine [Vitamin B-1] 100 mg PO DAILY - Plan Plan:: This is a 60M with past medical history Diastolic CHF, Type II DM, Alcoholism, Afib (on xarelto/metoprolol/diltiazem) presenting for evaluation of afib w/rvr 1. Afib w/RVR 2. SIRS syndrome; r/o sepsis; tachycardia; leukocytosis; lactic acidosis; sepsis ruled out 3. Hx of Diastolic CHF 4. Hx of alcoholism 5. Hx of chronic left hip pain 6. Hx of Type II DM with peripheral neuropathy 7. Obesity Plan -IVF bolus completed -serial lactate completed -blood cx -empiric zosyn -hold metformin -increase metoprolol to 100 mg BID -start amiodarone 200 mg BID per cardiology outpatient recs -diltiazem dc'd -tele -monitor I&O -CT left hip -pain control -CIWA protocol; monitor for withdrawal symptoms -PT, OT, SW consult Code-Full code DVT ppx-xarelto Dispo-TBD likely will need short term rehab; anticipated discharge 2-3 days; needs rate control
[2021-02-27] MEDS: Acetaminophen 325 MG Tab PO PRN (20:01)
[2021-02-27] MEDS: LORazepam 1 MG Tab PO SCH (20:01)
[2021-02-27] MEDS: Potassium Chloride 20 MEQ Tab.ER PO SCH (20:04)
[2021-02-27] MEDS: Gabapentin 600 MG Tab PO SCH (20:04)
[2021-02-28] MEDS: Melatonin 3 MG Tab PO PRN ×2 (02:20→21:45)
[2021-02-28] MEDS: LORazepam 1 MG Tab PO SCH ×3 (02:20→12:21)
[2021-02-28] MEDS: oxyCODONE 5 MG Tab PO PRN ×4 (02:20→21:46)
[2021-02-28] MEDS: Sodium Chloride 0.45% 1,000 ML IV SCH (04:08)
[2021-02-28] MEDS: Pantoprazole 40 MG Tab.CR PO SCH (05:59)
[2021-02-28] MEDS: Insulin Lispro 100 UNIT/ML 10 ML Vial SUBCUT SCH ×4 (05:59→21:48)
[2021-02-28] MEDS: Acetaminophen 325 MG Tab PO PRN (08:00)
[2021-02-28] MEDS: Folic Acid 1 MG Tab PO SCH (08:00)
[2021-02-28] MEDS: Rivaroxaban 10 MG Tab PO SCH (08:01)
[2021-02-28] MEDS: Thiamine 100 MG Tab PO SCH (08:01)
[2021-02-28] MEDS: Amiodarone 200 MG Tab PO SCH ×2 (08:02→21:45)
[2021-02-28] MEDS: Metoprolol Tartrate 100 MG Tab PO SCH ×2 (08:02→21:46)
--- NOTE | 2021-02-28 08:55 | PCM.PN ---
- General Info Date of Service: 02/28/21 Admission Dx/Problem (Free Text): Afib w/RVR Subjective Update: Patient still tachycardic upto 120-130s with activity denies chest pain denies sob denies n/v/d no hallucinations - Patient Data Vitals - Most Recent: Last Vital Signs Temp 97.0 F 02/28/21 08:00 Pulse 124 H 02/28/21 08:02 Resp 20 02/28/21 08:00 BP 119/95 H 02/28/21 08:02 Pulse Ox 93 L 02/28/21 08:00 Weight - Most Recent: 250 lb 12.8 oz I&O - Last 24 Hours: Intake & Output 02/27/21 02/28/21 02/28/21 22:59 06:59 14:59 Intake Total 1784 1950 Balance 1784 1950 Lab Results Last 24 Hours: Laboratory Results - last 24 hr 02/27/21 02/27/21 02/27/21 Range/Units 11:24 16:40 21:07 WBC (4.23-9.07) K/mm3 RBC (4.63-6.08) M/mm3 Hgb (13.7-17.5) gm/dl Hct (40.1-51.0) % MCV (79.0-92.2) fl MCH (25.7-32.2) pg MCHC (32.2-35.5) g/dl RDW Std Deviation (35.1-43.9) fL Plt Count (163-337) K/mm3 MPV (9.4-12.3) fl Sodium (136-145) mEq/L Potassium (3.5-5.1) mEq/L Chloride (98-107) mEq/L Carbon Dioxide (21-32) mEq/L Anion Gap (5-15) BUN (7-18) mg/dL Creatinine (0.7-1.3) mg/dL Est Cr Clr Drug Dosing mL/min Estimated GFR (MDRD) (>60) mL/min BUN/Creatinine Ratio (14-18) Glucose (70-99) mg/dL POC Glucose 91 142 H 121 H (70-99) mg/dL Calcium (8.5-10.1) mg/dL 08/01/21 08/01/21 08/01/21 Range/Units 05:58 07:52 07:52 WBC 10.96 H (4.23-9.07) K/mm3 RBC 3.68 L (4.63-6.08) M/mm3 Hgb 10.4 L (13.7-17.5) gm/dl Hct 33.1 L (40.1-51.0) % MCV 89.9 (79.0-92.2) fl MCH 28.3 (25.7-32.2) pg MCHC 31.4 L (32.2-35.5) g/dl RDW Std Deviation 48.8 H (35.1-43.9) fL Plt Count 148 L (163-337) K/mm3 MPV 9.0 L (9.4-12.3) fl Sodium 141 (136-145) mEq/L Potassium 4.1 (3.5-5.1) mEq/L Chloride 106 (98-107) mEq/L Carbon Dioxide 25 (21-32) mEq/L Anion Gap 14.1 (5-15) BUN 9 (7-18) mg/dL Creatinine 0.9 (0.7-1.3) mg/dL Est Cr Clr Drug Dosing 83.39 mL/min Estimated GFR (MDRD) > 60 (>60) mL/min BUN/Creatinine Ratio 10.0 L (14-18) Glucose 94 (70-99) mg/dL POC Glucose 84 (70-99) mg/dL Calcium 8.2 L (8.5-10.1) mg/dL Med Orders - Current: Current Medications Acetaminophen (Acetaminophen 325 Mg Tab) 650 mg PO Q4H PRN PRN Reason: Pain (Mild 1-3)/fever Last Admin: 02/28/21 08:00 Dose: 650 mg Documented by: Amiodarone HCl (Amiodarone 200 Mg Tab) 200 mg PO BID [facility] Last Admin: 02/28/21 08:02 Dose: 200 mg Documented by: Folic Acid (Folic Acid 1 Mg Tab) 1 mg PO DAILY [facility] Stop: 03/01/21 09:01 Last Admin: 02/28/21 08:00 Dose: 1 mg Documented by: Gabapentin (Gabapentin 600 Mg Tab) 600 mg PO BEDTIME [facility] Last Admin: 02/27/21 20:04 Dose: 600 mg Documented by: Hydromorphone HCl (Hydromorphone 0.5 Mg/0.5 Ml Syringe) 0.5 mg IVPUSH Q2H PRN PRN Reason: Pain (severe 7-10) Last Admin: 02/27/21 01:16 Dose: 0.5 mg Documented by: Insulin Human Lispro (Insulin Lispro 100 Unit/Ml 10 Ml Vial) 0 unit SUBCUT QIDACANDBED [facility]; Protocol Last Admin: 02/28/21 05:59 Dose: Not Given Documented by: Lorazepam (Lorazepam 1 Mg Tab) 1 - 2 mg PO ASDIRECTED [facility]; Protocol Last Admin: 02/28/21 08:02 Dose: 1 mg Documented by: Melatonin (Melatonin 3 Mg Tab) 6 mg PO BEDTIME PRN PRN Reason: Sleep Last Admin: 02/28/21 02:20 Dose: 6 mg Documented by: Metoprolol Tartrate (Metoprolol Tartrate 100 Mg Tab) 100 mg PO BID [facility] Last Admin: 02/28/21 08:02 Dose: 100 mg Documented by: Ondansetron HCl (Ondansetron 4 Mg/2 Ml Sdv) 4 mg IV Q4H PRN PRN Reason: Nausea/Vomiting Oxycodone HCl (Oxycodone 5 Mg Tab) 5 mg PO Q4H PRN PRN Reason: Pain (moderate 4-6) Last Admin: 02/28/21 02:20 Dose: 5 mg Documented by: Pantoprazole Sodium (Pantoprazole 40 Mg Tab.Cr) 40 mg PO ACBREAKFAST [facility] Last Admin: 02/28/21 05:59 Dose: 40 mg Documented by: Potassium Chloride (Potassium Chloride 20 Meq Tab.Er) 40 meq PO BEDTIME [facility] Last Admin: 02/27/21 20:04 Dose: 40 meq Documented by: Rivaroxaban (Rivaroxaban 10 Mg Tab) 20 mg PO DAILY [facility] Last Admin: 02/28/21 08:01 Dose: 20 mg Documented by: Sodium Chloride (Sodium Chloride 0.9% 10 Ml Syringe) 10 ml FLUSH ASDIRECTED PRN PRN Reason: Keep Vein Open Last Admin: 02/26/21 11:58 Dose: 10 ml Documented by: Thiamine HCl (Thiamine 100 Mg Tab) 100 mg PO DAILY [facility] Last Admin: 02/28/21 08:01 Dose: 100 mg Documented by: Discontinued Medications Diltiazem HCl (Diltiazem 50 Mg/10 Ml Sdv) 10 mg IVPUSH ONETIME ONE Stop: 02/26/21 14:22 Last Admin: 02/26/21 14:27 Dose: 10 mg Documented by: Diltiazem HCl (Diltiazem 50 Mg/10 Ml Sdv) 10 mg IVPUSH ONETIME ONE Stop: 02/26/21 15:19 Last Admin: 02/26/21 15:22 Dose: 10 mg Documented by: Diltiazem HCl (Diltiazem 120 Mg Cap.Cd) 360 mg PO DAILY [facility] Sodium Chloride (Normal Saline) 1,000 mls @ 150 mls/hr IV ASDIRECTED [facility] Last Admin: 02/27/21 00:46 Dose: 150 mls/hr Documented by: Sodium Chloride (Normal Saline) 1,000 mls @ 999 mls/hr IV ONETIME ONE Stop: 02/26/21 13:58 Last Admin: 02/26/21 13:08 Dose: 999 mls/hr Documented by: Diltiazem HCl 100 mg/ Sodium (Chloride) 100 mls @ 5 mls/hr IV TITRATE DIAM[facility]; Protocol Last Titration: 02/27/21 00:01 Dose: 0 mg/hr, 0 mls/hr Documented by: Lactated Ringer's (Ringers, Lactated) 1,000 mls @ 500 mls/hr IV .BOLUS ONE Stop: 02/26/21 18:44 Last Admin: 02/26/21 17:23 Dose: 500 mls/hr Documented by: Piperacillin Sod/Tazobactam (Sod 4.5 gm/ Sodium Chloride) 100 mls @ 25 mls/hr IV Q8H DI[facility] Last Admin: 02/27/21 02:33 Dose: 25 mls/hr Documented by: Magnesium Sulfate/Dextrose 1 (gm/ Premix) 100 mls @ 100 mls/hr IV ONETIME ONE Stop: 02/26/21 17:59 Last Admin: 02/26/21 17:51 Dose: 100 mls/hr Documented by: Piperacillin Sod/Tazobactam (Sod 4.5 gm/ Sodium Chloride) 100 mls @ 200 mls/hr IV ONETIME ONE Stop: 02/26/21 19:29 Piperacillin Sod/Tazobactam (Sod 4.5 gm/ Sodium Chloride) 100 mls @ 200 mls/hr IV ONETIME ONE Stop: 02/26/21 20:29 Last Admin: 02/26/21 20:00 Dose: 200 mls/hr Documented by: Sodium Chloride (Normal Saline) 1,000 mls @ 500 mls/hr IV ASDIRECTED [facility] Stop: 02/26/21 23:06 Last Admin: 02/26/21 21:09 Dose: 500 mls/hr Documented by: Sodium Chloride (Sodium Chloride 0.45%) 1,000 mls @ 100 mls/hr IV ASDIRECTED [facility] Last Admin: 02/28/21 04:08 Dose: 100 mls/hr Documented by: Lorazepam (Lorazepam 2 Mg/Ml Sdv) 1 mg IVPUSH ONETIME ONE Stop: 02/26/21 16:49 Last Admin: 02/26/21 16:52 Dose: 1 mg Documented by: Magnesium Oxide (Magnesium Oxide 400 Mg Tab) 400 mg PO ONETIME ONE Stop: 02/26/21 13:00 Last Admin: 02/26/21 13:19 Dose: 400 mg Documented by: Metoclopramide HCl (Metoclopramide 10 Mg/2 Ml Sdv) 5 mg IVPUSH ONETIME ONE Stop: 02/26/21 11:50 Last Admin: 02/26/21 11:57 Dose: 5 mg Documented by: Metoprolol Tartrate (Metoprolol Tartrate 5 Mg/5 Ml Sdv) 5 mg IVPUSH ONETIME ONE Stop: 02/26/21 11:48 Last Admin: 02/26/21 11:57 Dose: 5 mg Documented by: Metoprolol Tartrate (Metoprolol Tartrate 5 Mg/5 Ml Sdv) 5 mg IVPUSH ONETIME ONE Stop: 02/26/21 12:20 Last Admin: 02/26/21 12:46 Dose: 5 mg Documented by: Metoprolol Tartrate (Metoprolol Tartrate 50 Mg Tab) 75 mg PO BID [facility] Potassium Chloride (Potassium Chloride 20 Meq Tab.Er) 40 meq PO ONETIME ONE Stop: 02/26/21 13:00 Last Admin: 02/26/21 13:11 Dose: 40 meq Documented by: - Exam General: Alert, Oriented, Cooperative, No Acute Distress HEENT: EOMI, Mucous Membr. Moist/[place] Neck: Supple Lungs: Clear to Auscultation, Normal Respiratory Effort Cardiovascular: Irregular Rhythm, Tachycardia GI/Abdominal Exam: Soft, Non-Tender, No Distention Skin: Warm, Dry, Intact Neurological: No New Focal Deficit, Cranial Nerves Intact Psy/Mental Status: Alert, Normal Affect, Normal Mood - Patient Data Lab Results Last 24 hrs: Laboratory Results - last 24 hr 02/27/21 02/27/21 02/27/21 Range/Units 11:24 16:40 21:07 WBC (4.23-9.07) K/mm3 RBC (4.63-6.08) M/mm3 Hgb (13.7-17.5) gm/dl Hct (40.1-51.0) % MCV (79.0-92.2) fl MCH (25.7-32.2) pg MCHC (32.2-35.5) g/dl RDW Std Deviation (35.1-43.9) fL Plt Count (163-337) K/mm3 MPV (9.4-12.3) fl Sodium (136-145) mEq/L Potassium (3.5-5.1) mEq/L Chloride (98-107) mEq/L Carbon Dioxide (21-32) mEq/L Anion Gap (5-15) BUN (7-18) mg/dL Creatinine (0.7-1.3) mg/dL Est Cr Clr Drug Dosing mL/min Estimated GFR (MDRD) (>60) mL/min BUN/Creatinine Ratio (14-18) Glucose (70-99) mg/dL POC Glucose 91 142 H 121 H (70-99) mg/dL Calcium (8.5-10.1) mg/dL 02/28/21 02/28/21 02/28/21 Range/Units 05:58 07:52 07:52 WBC 10.96 H (4.23-9.07) K/mm3 RBC 3.68 L (4.63-6.08) M/mm3 Hgb 10.4 L (13.7-17.5) gm/dl Hct 33.1 L (40.1-51.0) % MCV 89.9 (79.0-92.2) fl MCH 28.3 (25.7-32.2) pg MCHC 31.4 L (32.2-35.5) g/dl RDW Std Deviation 48.8 H (35.1-43.9) fL Plt Count 148 L (163-337) K/mm3 MPV 9.0 L (9.4-12.3) fl Sodium 141 (136-145) mEq/L Potassium 4.1 (3.5-5.1) mEq/L Chloride 106 (98-107) mEq/L Carbon Dioxide 25 (21-32) mEq/L Anion Gap 14.1 (5-15) BUN 9 (7-18) mg/dL Creatinine 0.9 (0.7-1.3) mg/dL Est Cr Clr Drug Dosing 83.39 mL/min Estimated GFR (MDRD) > 60 (>60) mL/min BUN/Creatinine Ratio 10.0 L (14-18) Glucose 94 (70-99) mg/dL POC Glucose 84 (70-99) mg/dL Calcium 8.2 L (8.5-10.1) mg/dL Result Diagrams: 02/28/21 07:52 02/28/21 07:52 Sepsis Event Note - Evaluation Sepsis Screening Result: No Definite Risk - Focused Exam Vital Signs: Vital Signs Temp Pulse Resp BP BP Pulse Ox 02/28/21 08:02 124 H 119/95 H 02/28/21 08:00 97.0 F 127 H 20 119/95 H 93 L 02/28/21 06:06 98.6 F 20 126/96 H 92 L 02/28/21 06:00 87 L 02/28/21 05:00 17 02/28/21 04:00 18 02/28/21 03:00 19 02/28/21 02:24 97.6 F 95 18 135/109 H 135/109 H 98 02/28/21 02:23 18 02/28/21 02:00 20 02/28/21 01:00 13 02/28/21 00:00 18 02/27/21 23:00 20 02/27/21 22:00 31 H 02/27/21 21:00 20 - Problem List Review Problem List Initiated/Reviewed/Updated: Yes - My Orders Last 24 Hours: My Active Orders 02/27/21 08:00 Hip wo Cont Lt [CT] Routine 02/27/21 09:00 Amiodarone [Cordarone] 200 mg PO BID Folic Acid 1 mg PO DAILY Metoprolol Tartrate [Lopressor] 100 mg PO BID Rivaroxaban [Xarelto] 20 mg PO DAILY Thiamine [Vitamin B-1] 100 mg PO DAILY - Plan Plan:: This is a 60M with past medical history Diastolic CHF, Type II DM, Alcoholism, Afib (on xarelto/metoprolol/diltiazem) presenting for evaluation of afib w/rvr 1. Afib w/RVR 2. SIRS syndrome; r/o sepsis; tachycardia; leukocytosis; lactic acidosis; sepsis ruled out 3. Hx of Diastolic CHF 4. Hx of alcoholism 5. Hx of chronic left hip pain 6. Hx of Type II DM with peripheral neuropathy 7. Obesity 8. Suspected ABRAHAN Plan -IVF bolus completed; discontinue IVF today -serial lactate completed -blood cx -empiric zosyn stopped -hold metformin -increase metoprolol to 100 mg BID 02/27 -start amiodarone 200 mg BID per cardiology outpatient recs -diltiazem dc'd -tele -monitor I&O -CT left hip results pending -pain control -CIWA protocol; monitor for withdrawal symptoms -PT, OT, SW consult -may benefit from digoxin? will discuss case with Cardiology if still tachycardic; part of RVR secondary to possible early alcohol withdrawal symptoms Code-Full code DVT ppx-xarelto Dispo-TBD likely will need short term rehab; anticipated discharge 2-3 days; needs rate control
[2021-02-28] MEDS: HYDROmorphone 0.5 MG/0.5 ML Syringe IVPUSH PRN ×3 (10:30→17:10)
[2021-02-28] MEDS: Potassium Chloride 20 MEQ Tab.ER PO SCH (21:44)
[2021-02-28] MEDS: Gabapentin 600 MG Tab PO SCH (21:45)
[2021-03-01] MEDS: HYDROmorphone 0.5 MG/0.5 ML Syringe IVPUSH PRN ×2 (00:02→03:11)
[2021-03-01] MEDS: LORazepam 1 MG Tab PO SCH ×3 (03:11→15:53)
[2021-03-01] MEDS: Insulin Lispro 100 UNIT/ML 10 ML Vial SUBCUT SCH ×4 (06:36→21:08)
[2021-03-01] MEDS: Pantoprazole 40 MG Tab.CR PO SCH (06:36)
[2021-03-01] MEDS: Metoprolol Tartrate 100 MG Tab PO SCH ×3 (08:05→20:07)
[2021-03-01] MEDS: Rivaroxaban 10 MG Tab PO SCH (08:05)
[2021-03-01] MEDS: Amiodarone 200 MG Tab PO SCH ×2 (08:05→20:38)
[2021-03-01] MEDS: Folic Acid 1 MG Tab PO SCH (08:07)
[2021-03-01] MEDS: Thiamine 100 MG Tab PO SCH (08:07)
[2021-03-01] MEDS: oxyCODONE 5 MG Tab PO PRN ×3 (08:44→21:07)
[2021-03-01] MEDS ORDERED: Gabapentin 300 MG Cap PO ONE (09:12)
[2021-03-01] MEDS ORDERED: Furosemide 40 MG/4 ML VIAL IVPUSH ONE (09:13)
--- NOTE | 2021-03-01 09:38 | PCM.PN ---
- General Info Date of Service: 03/01/21 Admission Dx/Problem (Free Text): Afib w/RVR Subjective Update: HR mostly in 90-100s Denies Chest pain on supplemental oxygen endorses increased lower extremity edema and neuropathic foot pain Functional Status: Reports: Tolerating Diet - Review of Systems General: Reports: No Symptoms HEENT: Reports: No Symptoms Pulmonary: Reports: No Symptoms Cardiovascular: Reports: No Symptoms Musculoskeletal: Reports: Leg Pain, Foot Pain Skin: Reports: No Symptoms Neurological: Reports: No Symptoms Psychiatric: Reports: No Symptoms - Patient Data Vitals - Most Recent: Last Vital Signs Temp 98.2 F 03/01/21 07:42 Pulse 88 03/01/21 08:05 Resp 18 03/01/21 07:42 BP 101/68 03/01/21 08:05 Pulse Ox 90 L 03/01/21 08:51 Weight - Most Recent: 250 lb 1.6 oz I&O - Last 24 Hours: Intake & Output 02/28/21 03/01/21 03/01/21 22:59 06:59 14:59 Intake Total 1400 Output Total 800 Balance 600 Lab Results Last 24 Hours: Laboratory Results - last 24 hr 02/28/21 02/28/21 02/28/21 Range/Units 10:24 17:06 21:43 WBC (4.23-9.07) K/mm3 RBC (4.63-6.08) M/mm3 Hgb (13.7-17.5) gm/dl Hct (40.1-51.0) % MCV (79.0-92.2) fl MCH (25.7-32.2) pg MCHC (32.2-35.5) g/dl RDW Std Deviation (35.1-43.9) fL Plt Count (163-337) K/mm3 MPV (9.4-12.3) fl Sodium (136-145) mEq/L Potassium (3.5-5.1) mEq/L Chloride (98-107) mEq/L Carbon Dioxide (21-32) mEq/L Anion Gap (5-15) BUN (7-18) mg/dL Creatinine (0.7-1.3) mg/dL Est Cr Clr Drug Dosing mL/min Estimated GFR (MDRD) (>60) mL/min BUN/Creatinine Ratio (14-18) Glucose (70-99) mg/dL POC Glucose 153 H 135 H 114 H (70-99) mg/dL Calcium (8.5-10.1) mg/dL 03/01/21 03/01/21 03/01/21 Range/Units 05:32 05:32 06:36 WBC 12.90 H (4.23-9.07) K/mm3 RBC 3.72 L (4.63-6.08) M/mm3 Hgb 10.8 L (13.7-17.5) gm/dl Hct 33.0 L (40.1-51.0) % MCV 88.7 (79.0-92.2) fl MCH 29.0 (25.7-32.2) pg MCHC 32.7 (32.2-35.5) g/dl RDW Std Deviation 48.8 H (35.1-43.9) fL Plt Count 148 L (163-337) K/mm3 MPV 9.3 L (9.4-12.3) fl Sodium 140 (136-145) mEq/L Potassium 4.8 (3.5-5.1) mEq/L Chloride 106 (98-107) mEq/L Carbon Dioxide 26 (21-32) mEq/L Anion Gap 12.8 (5-15) BUN 10 (7-18) mg/dL Creatinine 0.8 (0.7-1.3) mg/dL Est Cr Clr Drug Dosing 93.81 mL/min Estimated GFR (MDRD) > 60 (>60) mL/min BUN/Creatinine Ratio 12.5 L (14-18) Glucose 98 (70-99) mg/dL POC Glucose 95 (70-99) mg/dL Calcium 8.3 L (8.5-10.1) mg/dL Nelson Results Last 24 Hours: Microbiology 02/26/21 18:15 Blood Culture - Preliminary Blood - Venous - Lab Draw 02/26/21 18:09 Blood Culture - Preliminary Blood - Venous Med Orders - Current: Current Medications Acetaminophen (Acetaminophen 325 Mg Tab) 650 mg PO Q4H PRN PRN Reason: Pain (Mild 1-3)/fever Last Admin: 02/28/21 08:00 Dose: 650 mg Documented by: Amiodarone HCl (Amiodarone 200 Mg Tab) 200 mg PO BID DIAMANTE Last Admin: 03/01/21 08:05 Dose: 200 mg Documented by: Gabapentin (Gabapentin 600 Mg Tab) 600 mg PO BEDTIME [facility] Last Admin: 02/28/21 21:45 Dose: 600 mg Documented by: Hydromorphone HCl (Hydromorphone 0.5 Mg/0.5 Ml Syringe) 0.5 mg IVPUSH Q2H PRN PRN Reason: Pain (severe 7-10) Last Admin: 03/01/21 03:11 Dose: 0.5 mg Documented by: Insulin Human Lispro (Insulin Lispro 100 Unit/Ml 10 Ml Vial) 0 unit SUBCUT Q IDACANDBED [facility]; Protocol Last Admin: 03/01/21 06:36 Dose: Not Given Documented by: Lorazepam (Lorazepam 1 Mg Tab) 1 - 2 mg PO ASDIRECTED [facility]; Protocol Last Admin: 03/01/21 03:11 Dose: 1 mg Documented by: Melatonin (Melatonin 3 Mg Tab) 6 mg PO BEDTIME PRN PRN Reason: Sleep Last Admin: 02/28/21 21:45 Dose: 6 mg Documented by: Metoprolol Tartrate (Metoprolol Tartrate 100 Mg Tab) 100 mg PO BID [facility] Last Admin: 03/01/21 08:05 Dose: 100 mg Documented by: Ondansetron HCl (Ondansetron 4 Mg/2 Ml Sdv) 4 mg IV Q4H PRN PRN Reason: Nausea/Vomiting Last Admin: 02/28/21 10:08 Dose: 4 mg Documented by: Oxycodone HCl (Oxycodone 5 Mg Tab) 10 mg PO Q6H PRN PRN Reason: Pain (moderate 4-6) Last Admin: 03/01/21 08:44 Dose: 10 mg Documented by: Pantoprazole Sodium (Pantoprazole 40 Mg Tab.Cr) 40 mg PO ACBREAKFAST [facility] Last Admin: 03/01/21 06:36 Dose: 40 mg Documented by: Potassium Chloride (Potassium Chloride 20 Meq Tab.Er) 40 meq PO BEDTIME [facility] Last Admin: 02/28/21 21:44 Dose: 40 meq Documented by: Rivaroxaban (Rivaroxaban 10 Mg Tab) 20 mg PO DAILY [facility] Last Admin: 03/01/21 08:05 Dose: 20 mg Documented by: Sodium Chloride (Sodium Chloride 0.9% 10 Ml Syringe) 10 ml FLUSH ASDIRECTED PRN PRN Reason: Keep Vein Open Last Admin: 02/26/21 11:58 Dose: 10 ml Documented by: Thiamine HCl (Thiamine 100 Mg Tab) 100 mg PO DAILY DIAMANTE Last Admin: 03/01/21 08:07 Dose: 100 mg Documented by: Discontinued Medications Diltiazem HCl (Diltiazem 50 Mg/10 Ml Sdv) 10 mg IVPUSH ONETIME ONE Stop: 02/26/21 14:22 Last Admin: 02/26/21 14:27 Dose: 10 mg Documented by: Diltiazem HCl (Diltiazem 50 Mg/10 Ml Sdv) 10 mg IVPUSH ONETIME ONE Stop: 02/26/21 15:19 Last Admin: 02/26/21 15:22 Dose: 10 mg Documented by: Diltiazem HCl (Diltiazem 120 Mg Cap.Cd) 360 mg PO DAILY DIAMANTE Folic Acid (Folic Acid 1 Mg Tab) 1 mg PO DAILY DIAMANTE Stop: 03/01/21 09:01 Last Admin: 03/01/21 08:07 Dose: 1 mg Documented by: Furosemide (Furosemide 40 Mg/4 Ml Vial) 40 mg IVPUSH NOW ONE Stop: 03/01/21 09:14 Last Admin: 03/01/21 09:33 Dose: 40 mg Documented by: Gabapentin (Gabapentin 300 Mg Cap) 300 mg PO ONETIME ONE Stop: 03/01/21 09:13 Last Admin: 03/01/21 09:33 Dose: 300 mg Documented by: Sodium Chloride (Normal Saline) 1,000 mls @ 150 mls/hr IV ASDIRECTED DIAMANTE Last Admin: 02/27/21 00:46 Dose: 150 mls/hr Documented by: Sodium Chloride (Normal Saline) 1,000 mls @ 999 mls/hr IV ONETIME ONE Stop: 02/26/21 13:58 Last Admin: 02/26/21 13:08 Dose: 999 mls/hr Documented by: Diltiazem HCl 100 mg/ Sodium (Chloride) 100 mls @ 5 mls/hr IV TITRATE DIAMANTE; Protocol Last Titration: 02/27/21 00:01 Dose: 0 mg/hr, 0 mls/hr Documented by: Lactated Ringer's (Ringers, Lactated) 1,000 mls @ 500 mls/hr IV .BOLUS ONE Stop: 02/26/21 18:44 Last Admin: 02/26/21 17:23 Dose: 500 mls/hr Documented by: Piperacillin Sod/Tazobactam (Sod 4.5 gm/ Sodium Chloride) 100 mls @ 25 mls/hr IV Q8H [facility] Last Admin: 02/27/21 02:33 Dose: 25 mls/hr Documented by: Magnesium Sulfate/Dextrose 1 (gm/ Premix) 100 mls @ 100 mls/hr IV ONETIME ONE Stop: 02/26/21 17:59 Last Admin: 02/26/21 17:51 Dose: 100 mls/hr Documented by: Piperacillin Sod/Tazobactam (Sod 4.5 gm/ Sodium Chloride) 100 mls @ 200 mls/hr IV ONETIME ONE Stop: 02/26/21 19:29 Piperacillin Sod/Tazobactam (Sod 4.5 gm/ Sodium Chloride) 100 mls @ 200 mls/hr IV ONETIME ONE Stop: 02/26/21 20:29 Last Admin: 02/26/21 20:00 Dose: 200 mls/hr Documented by: Sodium Chloride (Normal Saline) 1,000 mls @ 500 mls/hr IV ASDIRECTED [facility] Stop: 02/26/21 23:06 Last Admin: 02/26/21 21:09 Dose: 500 mls/hr Documented by: Sodium Chloride (Sodium Chloride 0.45%) 1,000 mls @ 100 mls/hr IV ASDIRECTED [facility] Last Admin: 02/28/21 04:08 Dose: 100 mls/hr Documented by: Lorazepam (Lorazepam 2 Mg/Ml Sdv) 1 mg IVPUSH ONETIME ONE Stop: 02/26/21 16:49 Last Admin: 02/26/21 16:52 Dose: 1 mg Documented by: Magnesium Oxide (Magnesium Oxide 400 Mg Tab) 400 mg PO ONETIME ONE Stop: 02/26/21 13:00 Last Admin: 02/26/21 13:19 Dose: 400 mg Documented by: Metoclopramide HCl (Metoclopramide 10 Mg/2 Ml Sdv) 5 mg IVPUSH ONETIME ONE Stop: 02/26/21 11:50 Last Admin: 02/26/21 11:57 Dose: 5 mg Documented by: Metoprolol Tartrate (Metoprolol Tartrate 5 Mg/5 Ml Sdv) 5 mg IVPUSH ONETIME ONE Stop: 02/26/21 11:48 Last Admin: 02/26/21 11:57 Dose: 5 mg Documented by: Metoprolol Tartrate (Metoprolol Tartrate 5 Mg/5 Ml Sdv) 5 mg IVPUSH ONETIME ONE Stop: 02/26/21 12:20 Last Admin: 02/26/21 12:46 Dose: 5 mg Documented by: Metoprolol Tartrate (Metoprolol Tartrate 50 Mg Tab) 75 mg PO BID DIAMANTE Oxycodone HCl (Oxycodone 5 Mg Tab) 5 mg PO Q4H PRN PRN Reason: Pain (moderate 4-6) Last Admin: 02/28/21 09:12 Dose: 5 mg Documented by: Potassium Chloride (Potassium Chloride 20 Meq Tab.Er) 40 meq PO ONETIME ONE Stop: 02/26/21 13:00 Last Admin: 02/26/21 13:11 Dose: 40 meq Documented by: - Exam General: Alert, Oriented HEENT: EOMI, Mucous Membr. Moist/[place] Neck: Supple Lungs: Clear to Auscultation, Normal Respiratory Effort Cardiovascular: Irregular Rhythm, Tachycardia GI/Abdominal Exam: Soft, Non-Tender, No Distention Extremities: Other (2+ bilateral edema) Skin: Warm, Dry, Intact Neurological: No New Focal Deficit Psy/Mental Status: Alert, Normal Affect, Normal Mood - Patient Data Lab Results Last 24 hrs: Laboratory Results - last 24 hr 02/28/21 02/28/21 02/28/21 Range/Units 10:24 17:06 21:43 WBC (4.23-9.07) K/mm3 RBC (4.63-6.08) M/mm3 Hgb (13.7-17.5) gm/dl Hct (40.1-51.0) % MCV (79.0-92.2) fl MCH (25.7-32.2) pg MCHC (32.2-35.5) g/dl RDW Std Deviation (35.1-43.9) fL Plt Count (163-337) K/mm3 MPV (9.4-12.3) fl Sodium (136-145) mEq/L Potassium (3.5-5.1) mEq/L Chloride (98-107) mEq/L Carbon Dioxide (21-32) mEq/L Anion Gap (5-15) BUN (7-18) mg/dL Creatinine (0.7-1.3) mg/dL Est Cr Clr Drug Dosing mL/min Estimated GFR (MDRD) (>60) mL/min BUN/Creatinine Ratio (14-18) Glucose (70-99) mg/dL POC Glucose 153 H 135 H 114 H (70-99) mg/dL Calcium (8.5-10.1) mg/dL 03/01/21 03/01/21 03/01/21 Range/Units 05:32 05:32 06:36 WBC 12.90 H (4.23-9.07) K/mm3 RBC 3.72 L (4.63-6.08) M/mm3 Hgb 10.8 L (13.7-17.5) gm/dl Hct 33.0 L (40.1-51.0) % MCV 88.7 (79.0-92.2) fl MCH 29.0 (25.7-32.2) pg MCHC 32.7 (32.2-35.5) g/dl RDW Std Deviation 48.8 H (35.1-43.9) fL Plt Count 148 L (163-337) K/mm3 MPV 9.3 L (9.4-12.3) fl Sodium 140 (136-145) mEq/L Potassium 4.8 (3.5-5.1) mEq/L Chloride 106 (98-107) mEq/L Carbon Dioxide 26 (21-32) mEq/L Anion Gap 12.8 (5-15) BUN 10 (7-18) mg/dL Creatinine 0.8 (0.7-1.3) mg/dL Est Cr Clr Drug Dosing 93.81 mL/min Estimated GFR (MDRD) > 60 (>60) mL/min BUN/Creatinine Ratio 12.5 L (14-18) Glucose 98 (70-99) mg/dL POC Glucose 95 (70-99) mg/dL Calcium 8.3 L (8.5-10.1) mg/dL Result Diagrams: 03/01/21 05:32 03/01/21 05:32 Nelson Results Last 24 hrs: Microbiology 02/26/21 18:15 Blood Culture - Preliminary Blood - Venous - Lab Draw 02/26/21 18:09 Blood Culture - Preliminary Blood - Venous Sepsis Event Note - Evaluation Sepsis Screening Result: No Definite Risk - Focused Exam Vital Signs: Vital Signs Temp Temp Pulse Pulse Resp BP Pulse Ox 03/01/21 08:51 03/01/21 08:05 88 101/68 03/01/21 07:48 116 H 90 L 03/01/21 07:45 123 H 91 L 03/01/21 07:42 98.2 F 119 H 18 101/68 88 L 03/01/21 04:00 98 03/01/21 03:20 107 H 92 L 03/01/21 03:04 16 135/88 03/01/21 03:03 97.8 F 89 L 02/28/21 21:46 98 110/68 Pulse Ox 03/01/21 08:51 90 L 03/01/21 08:05 03/01/21 07:48 03/01/21 07:45 03/01/21 07:42 03/01/21 04:00 03/01/21 03:20 03/01/21 03:04 03/01/21 03:03 02/28/21 21:46 - Problem List Review Problem List Initiated/Reviewed/Updated: Yes - My Orders Last 24 Hours: My Active Orders 02/28/21 12:04 oxyCODONE 10 mg PO Q6H PRN 02/28/21 12:05 Weight bearing status [OM.PC] Routine 02/28/21 13:46 Patient Status [ADT] Routine 03/01/21 09:12 PRO B-TYPE NATRIUR PEPT,BNPPRO [CHEM] Stat 03/01/21 09:13 Chest 1V Frontal [CR] Routine 03/02/21 06:00 BASIC METABOLIC PANEL,BMP [CHEM] DAILY CBC W/O DIFF,HEMOGRAM [HEME] DAILY 03/03/21 06:00 BASIC METABOLIC PANEL,BMP [CHEM] DAILY CBC W/O DIFF,HEMOGRAM [HEME] DAILY 03/04/21 06:00 BASIC METABOLIC PANEL,BMP [CHEM] DAILY CBC W/O DIFF,HEMOGRAM [HEME] DAILY 03/05/21 06:00 BASIC METABOLIC PANEL,BMP [CHEM] DAILY - Plan Plan:: This is a 60M with past medical history Diastolic CHF, Type II DM, Alcoholism, Afib (on xarelto/metoprolol/diltiazem) presenting for evaluation of afib w/rvr 1. Afib w/RVR 2. SIRS syndrome; r/o sepsis; tachycardia; leukocytosis; lactic acidosis; sepsis ruled out 3. Hx of Diastolic CHF 4. Hx of alcoholism 5. Hx of chronic left hip pain 6. Hx of Type II DM with peripheral neuropathy 7. Obesity 8. 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
--- NOTE | 2021-03-01 09:41 | CT ---
CT left hip Technique: Multiple axial sections through the left hip were obtained. Reconstructed coronal and sagittal images were obtained. Comparison: Prior plain film pelvis and left hip radiographic study of 09/26/20. Findings: Fat containing bilateral inguinal hernias are noted. Diffuse cystic change is seen within the femoral head with surrounding sclerosis. Minimal cystic change is noted within the acetabulum. Small bony density is noted off the superior acetabulum which appears to be old. Bony structures are osteopenic. I do not see a definite acute fracture. Impression: 1. Cystic change and sclerosis within the femoral head. This could represent degenerative change. This could also represent degenerative change superimposed upon a healed subcapital fracture. 2. Minimal bony density off the superior acetabulum which appears to be old. 3. Minimal cystic change within the superior acetabulum as well as osteopenia. Other findings as noted above. Diagnostic code #3 MTDD
--- NOTE | 2021-03-01 10:25 | CR ---
Chest: Portable view of the chest was obtained. Comparison: Prior chest x-ray of 02/26/21. Patient is somewhat rotated for this study. Lung markings are increased on the right side which appear stable. Left lung is clear. Heart size and mediastinum are within normal limits for portable technique. No acute osseous abnormality is appreciated. Impression: 1. Patient rotated for this study. 2. Increased lung markings on the right side which appear stable. 3. Nothing acute is definitely appreciated. If patient remains symptomatic, follow-up study is recommended. Diagnostic code #2
[2021-03-01] MEDS ORDERED: Albumin 25% 12.5 GM in Premix Bag 1 BAG IV ONE ×2 (13:00→20:30)
[2021-03-01] MEDS ORDERED: Sodium Chloride 0.9% 250 ML IV ONE (13:00)
[2021-03-01] MEDS ORDERED: Metoprolol Tartrate 5 MG/5 ML SDV IVPUSH PRN (15:58)
[2021-03-01] MEDS ORDERED: Lactated Ringers 500 ML IV ONE (16:48)
[2021-03-01] MEDS ORDERED: Magnesium Sulfate/Water 2 GM in Premix Bag 1 BAG IV ONE (17:00)
[2021-03-01] MEDS ORDERED: Furosemide 20 MG/2 ML VIAL IVPUSH SCH (18:00)
[2021-03-01] MEDS: Potassium Chloride 20 MEQ Tab.ER PO SCH (20:38)
[2021-03-01] MEDS: Gabapentin 600 MG Tab PO SCH (20:38)
[2021-03-02] MEDS: LORazepam 1 MG Tab PO SCH ×11 (00:44→21:53)
[2021-03-02] MEDS: HYDROmorphone 0.5 MG/0.5 ML Syringe IVPUSH PRN (00:54)
[2021-03-02] MEDS: oxyCODONE 5 MG Tab PO PRN ×4 (03:29→20:49)
[2021-03-02] MEDS: Pantoprazole 40 MG Tab.CR PO SCH (05:13)
[2021-03-02] MEDS: Insulin Lispro 100 UNIT/ML 10 ML Vial SUBCUT SCH ×4 (06:18→21:03)
[2021-03-02] MEDS ORDERED: Iopamidol 755 Mg/ML 100 ML Bottle IVPUSH ONE (08:52)
[2021-03-02] MEDS ORDERED: Sodium Chloride 0.9% 10 ML SDV FLUSH ONE (08:52)
[2021-03-02] MEDS ORDERED: Diatrizoate Meglumine/Diatrizoate Sodium 37% 120 ML Bottle PO ONE (08:52)
[2021-03-02] MEDS ORDERED: Sodium Chloride 0.9% 100 ML IV SCH (09:00)
[2021-03-02] MEDS: Sodium Chloride 0.9% 10 ML Syringe FLUSH PRN (09:05)
[2021-03-02] MEDS: Metoprolol Tartrate 100 MG Tab PO SCH ×2 (09:07→20:50)
[2021-03-02] MEDS: Thiamine 100 MG Tab PO SCH (09:07)
[2021-03-02] MEDS: Amiodarone 200 MG Tab PO SCH ×2 (09:08→20:50)
[2021-03-02] MEDS: Rivaroxaban 10 MG Tab PO SCH (09:08)
--- NOTE | 2021-03-02 09:44 | CT ---
CT chest Technique: Multiple axial sections through the chest were obtained. Intravenous contrast was utilized. Study has been performed as a pulmonary angiogram protocol. Comparison: Prior chest x-ray performed on 03/01/[address] study of 11/09/16. Findings: Pulmonary arteries are well opacified. No filling defects are seen to indicate pulmonary embolism. Thoracic aorta shows no aneurysm. Lymph nodes within the mediastinum are slightly increased in size. Largest lymph node measures approximately 2.4 cm. These are an interval change from prior exam. No pericardial thickening is seen. Moderate sized hiatal hernia is present. Small portion of the visualized upper abdominal structures show nothing acute. Very minimal left-sided pleural effusion is seen. Diffuse interstitial change is seen within the right lung which has the appearance of fibrosis. More focal density is seen within the right upper lung which could possibly represent an area of infection if patient has correlating symptoms. Lesser fibrosis is noted within the left lung. These findings are an interval change from prior chest CT. Bone window settings were reviewed which show mild degenerative change within the spine. Multiple healed left-sided rib fractures are noted. Impression: 1. No findings of pulmonary embolism. 2. Diffuse interstitial change most prominent within the right lung. Most of this appears to represent fibrosis but difficult to exclude areas of pneumonia within the right upper lung as the findings are slightly more confluent. Please correlate with the patient's symptoms. 3. Lesser fibrosis within the left lung. 4. Small left-sided pleural effusion. 5. Moderately large hiatal hernia. 6. Increasing lymph nodes within the mediastinum from prior chest CT. Difficult to exclude neoplasm or enlargement on a postinflammatory basis. Diagnostic code #9
[2021-03-02] MEDS ORDERED: Diltiazem 120 MG Cap.CD PO SCH (10:30)
--- NOTE | 2021-03-02 10:36 | PCM.PN ---
- General Info Date of Service: 03/02/21 Admission Dx/Problem (Free Text): Afib w/RVR Subjective Update: Patient continues to have intermittent hypotension required albumin +fluids yesterday Oxygen requirements 4-5 liters did not tolerate diuresis due to hypotension denies chest pain and sob denies cough denies hallucinations - Review of Systems General: Reports: No Symptoms HEENT: Reports: No Symptoms Pulmonary: Reports: Other (hypoxia) Cardiovascular: Reports: Other (tachcyardia) Gastrointestinal: Reports: No Symptoms Musculoskeletal: Reports: Joint Pain Skin: Reports: No Symptoms Neurological: Reports: No Symptoms - Patient Data Vitals - Most Recent: Last Vital Signs Temp 98.2 F 03/02/21 07:35 Pulse 118 H 03/02/21 09:07 Resp 20 03/02/21 07:35 BP 112/70 03/02/21 09:07 Pulse Ox 93 L 03/02/21 08:31 Weight - Most Recent: 253 lb 1.6 oz I&O - Last 24 Hours: Intake & Output 03/01/21 03/02/21 03/02/21 22:59 06:59 14:59 Intake Total 2210 950 Output Total 2325 1050 Balance -115 -100 Lab Results Last 24 Hours: Laboratory Results - last 24 hr 03/01/21 03/01/21 03/01/21 Range/Units 09:30 11:24 16:06 WBC (4.23-9.07) K/mm3 RBC (4.63-6.08) M/mm3 Hgb (13.7-17.5) gm/dl Hct (40.1-51.0) % MCV (79.0-92.2) fl MCH (25.7-32.2) pg MCHC (32.2-35.5) g/dl RDW Std Deviation (35.1-43.9) fL Plt Count (163-337) K/mm3 MPV (9.4-12.3) fl Sodium (136-145) mEq/L Potassium (3.5-5.1) mEq/L Chloride (98-107) mEq/L Carbon Dioxide (21-32) mEq/L Anion Gap (5-15) BUN (7-18) mg/dL Creatinine (0.7-1.3) mg/dL Est Cr Clr Drug Dosing mL/min Estimated GFR (MDRD) (>60) mL/min BUN/Creatinine Ratio (14-18) Glucose (70-99) mg/dL POC Glucose 93 (70-99) mg/dL Lactic Acid 1.0 (0.4-2.0) mmol/L Calcium (8.5-10.1) mg/dL Magnesium 1.2 L (1.8-2.4) mg/dL 03/01/21 03/01/21 03/01/21 Range/Units 16:27 20:43 22:00 WBC (4.23-9.07) K/mm3 RBC (4.63-6.08) M/mm3 Hgb (13.7-17.5) gm/dl Hct (40.1-51.0) % MCV (79.0-92.2) fl MCH (25.7-32.2) pg MCHC (32.2-35.5) g/dl RDW Std Deviation (35.1-43.9) fL Plt Count (163-337) K/mm3 MPV (9.4-12.3) fl Sodium (136-145) mEq/L Potassium 4.0 (3.5-5.1) mEq/L Chloride (98-107) mEq/L Carbon Dioxide (21-32) mEq/L Anion Gap (5-15) BUN (7-18) mg/dL Creatinine (0.7-1.3) mg/dL Est Cr Clr Drug Dosing mL/min Estimated GFR (MDRD) (>60) mL/min BUN/Creatinine Ratio (14-18) Glucose (70-99) mg/dL POC Glucose 144 H 120 H (70-99) mg/dL Lactic Acid (0.4-2.0) mmol/L Calcium (8.5-10.1) mg/dL Magnesium 2.0 (1.8-2.4) mg/dL 03/02/21 03/02/21 03/02/21 Range/Units 05:55 05:55 06:17 WBC 11.00 H (4.23-9.07) K/mm3 RBC 3.27 L (4.63-6.08) M/mm3 Hgb 9.3 L D (13.7-17.5) gm/dl Hct 29.5 L (40.1-51.0) % MCV 90.2 (79.0-92.2) fl MCH 28.4 (25.7-32.2) pg MCHC 31.5 L (32.2-35.5) g/dl RDW Std Deviation 49.8 H (35.1-43.9) fL Plt Count 134 L (163-337) K/mm3 MPV 9.2 L (9.4-12.3) fl Sodium 139 (136-145) mEq/L Potassium 4.1 (3.5-5.1) mEq/L Chloride 105 (98-107) mEq/L Carbon Dioxide 27 (21-32) mEq/L Anion Gap 11.1 (5-15) BUN 8 (7-18) mg/dL Creatinine 0.7 (0.7-1.3) mg/dL Est Cr Clr Drug Dosing 107.21 mL/min Estimated GFR (MDRD) > 60 (>60) mL/min BUN/Creatinine Ratio 11.4 L (14-18) Glucose 102 H (70-99) mg/dL POC Glucose 105 H (70-99) mg/dL Lactic Acid (0.4-2.0) mmol/L Calcium 8.3 L (8.5-10.1) mg/dL Magnesium (1.8-2.4) mg/dL Med Orders - Current: Current Medications Acetaminophen (Acetaminophen 325 Mg Tab) 650 mg PO Q4H PRN PRN Reason: Pain (Mild 1-3)/fever Last Admin: 02/28/21 08:00 Dose: 650 mg Documented by: Amiodarone HCl (Amiodarone 200 Mg Tab) 200 mg PO BID [facility] Last Admin: 03/02/21 09:08 Dose: 200 mg Documented by: Diltiazem HCl (Diltiazem Ir 30 Mg Tab) 30 mg PO Q6HR [facility] Gabapentin (Gabapentin 600 Mg Tab) 600 mg PO BEDTIME [facility] Last Admin: 03/01/21 20:38 Dose: 600 mg Documented by: Hydromorphone HCl (Hydromorphone 0.5 Mg/0.5 Ml Syringe) 1 mg IVPUSH Q2H PRN PRN Reason: Pain (severe 7-10) Sodium Chloride (Normal Saline) 100 mls @ 60 mls/hr IV ASDIRECTED [facility] Stop: 03/02/21 12:00 Last Admin: 03/02/21 09:01 Dose: 60 mls/hr Documented by: Insulin Human Lispro (Insulin Lispro 100 Unit/Ml 10 Ml Vial) 0 unit SUBCUT Q IDACANDBED [facility]; Protocol Last Admin: 03/02/21 06:18 Dose: Not Given Documented by: Lorazepam (Lorazepam 1 Mg Tab) 1 - 2 mg PO ASDIRECTED [facility]; Protocol Last Admin: 03/02/21 09:13 Dose: 1 mg Documented by: Melatonin (Melatonin 3 Mg Tab) 6 mg PO BEDTIME PRN PRN Reason: Sleep Last Admin: 02/28/21 21:45 Dose: 6 mg Documented by: Metoprolol Tartrate (Metoprolol Tartrate 100 Mg Tab) 100 mg PO BID [facility] Last Admin: 03/02/21 09:07 Dose: 100 mg Documented by: Metoprolol Tartrate (Metoprolol Tartrate 5 Mg/5 Ml Sdv) 5 mg IVPUSH Q6H PRN PRN Reason: Arrhythmia Ondansetron HCl (Ondansetron 4 Mg/2 Ml Sdv) 4 mg IV Q4H PRN PRN Reason: Nausea/Vomiting Last Admin: 02/28/21 10:08 Dose: 4 mg Documented by: Oxycodone HCl (Oxycodone 5 Mg Tab) 10 mg PO Q4H PRN PRN Reason: Pain (moderate 4-6) Last Admin: 03/02/21 09:07 Dose: 10 mg Documented by: Pantoprazole Sodium (Pantoprazole 40 Mg Tab.Cr) 40 mg PO ACBREAKFAST [facility] Last Admin: 03/02/21 05:13 Dose: 40 mg Documented by: Potassium Chloride (Potassium Chloride 20 Meq Tab.Er) 40 meq PO BEDTIME [facility] Last Admin: 03/01/21 20:38 Dose: 40 meq Documented by: Rivaroxaban (Rivaroxaban 10 Mg Tab) 20 mg PO DAILY [facility] Last Admin: 03/02/21 09:08 Dose: 20 mg Documented by: Sodium Chloride (Sodium Chloride 0.9% 10 Ml Syringe) 10 ml FLUSH ASDIRECTED PRN PRN Reason: Keep Vein Open Last Admin: 03/02/21 09:05 Dose: 10 ml Documented by: Thiamine HCl (Thiamine 100 Mg Tab) 100 mg PO DAILY [facility] Last Admin: 03/02/21 09:07 Dose: 100 mg Documented by: Discontinued Medications Diatrizoate Meglum/Diatrizoate Sod (Diatrizoate Meglumine/Diatrizoate Sodium 37% 120 Ml Bottle) 120 ml PO ONETIME ONE Stop: 03/02/21 08:53 Last Admin: 03/02/21 09:04 Dose: Not Given Documented by: Diltiazem HCl (Diltiazem 50 Mg/10 Ml Sdv) 10 mg IVPUSH ONETIME ONE Stop: 02/26/21 14:22 Last Admin: 02/26/21 14:27 Dose: 10 mg Documented by: Diltiazem HCl (Diltiazem 50 Mg/10 Ml Sdv) 10 mg IVPUSH ONETIME ONE Stop: 02/26/21 15:19 Last Admin: 02/26/21 15:22 Dose: 10 mg Documented by: Diltiazem HCl (Diltiazem 120 Mg Cap.Cd) 360 mg PO DAILY [facility] Diltiazem HCl (Diltiazem 120 Mg Cap.Cd) 120 mg PO DAILY [facility] Folic Acid (Folic Acid 1 Mg Tab) 1 mg PO DAILY [facility] Stop: 03/01/21 09:01 Last Admin: 03/01/21 08:07 Dose: 1 mg Documented by: Furosemide (Furosemide 40 Mg/4 Ml Vial) 40 mg IVPUSH NOW ONE Stop: 03/01/21 09:14 Last Admin: 03/01/21 09:33 Dose: 40 mg Documented by: Furosemide (Furosemide 20 Mg/2 Ml Vial) 20 mg IVPUSH 0600,1800 [facility] Gabapentin (Gabapentin 300 Mg Cap) 300 mg PO ONETIME ONE Stop: 03/01/21 09:13 Last Admin: 03/01/21 09:33 Dose: 300 mg Documented by: Hydromorphone HCl (Hydromorphone 0.5 Mg/0.5 Ml Syringe) 0.5 mg IVPUSH Q2H PRN PRN Reason: Pain (severe 7-10) Last Admin: 03/02/21 00:54 Dose: 0.5 mg Documented by: Sodium Chloride (Normal Saline) 1,000 mls @ 150 mls/hr IV ASDIRECTED [facility] Last Admin: 02/27/21 00:46 Dose: 150 mls/hr Documented by: Sodium Chloride (Normal Saline) 1,000 mls @ 999 mls/hr IV ONETIME ONE Stop: 02/26/21 13:58 Last Admin: 02/26/21 13:08 Dose: 999 mls/hr Documented by: Diltiazem HCl 100 mg/ Sodium (Chloride) 100 mls @ 5 mls/hr IV TITRATE DIAMANTE; Protocol Last Titration: 02/27/21 00:01 Dose: 0 mg/hr, 0 mls/hr Documented by: Lactated Ringer's (Ringers, Lactated) 1,000 mls @ 500 mls/hr IV .BOLUS ONE Stop: 02/26/21 18:44 Last Admin: 02/26/21 17:23 Dose: 500 mls/hr Documented by: Piperacillin Sod/Tazobactam (Sod 4.5 gm/ Sodium Chloride) 100 mls @ 25 mls/hr IV Q8H DIAMANTE Last Admin: 02/27/21 02:33 Dose: 25 mls/hr Documented by: Magnesium Sulfate/Dextrose 1 (gm/ Premix) 100 mls @ 100 mls/hr IV ONETIME ONE Stop: 02/26/21 17:59 Last Admin: 02/26/21 17:51 Dose: 100 mls/hr Documented by: Piperacillin Sod/Tazobactam (Sod 4.5 gm/ Sodium Chloride) 100 mls @ 200 mls/hr IV ONETIME ONE Stop: 02/26/21 19:29 Piperacillin Sod/Tazobactam (Sod 4.5 gm/ Sodium Chloride) 100 mls @ 200 mls/hr IV ONETIME ONE Stop: 02/26/21 20:29 Last Admin: 02/26/21 20:00 Dose: 200 mls/hr Documented by: Sodium Chloride (Normal Saline) 1,000 mls @ 500 mls/hr IV ASDIRECTED DIAMANTE Stop: 02/26/21 23:06 Last Admin: 02/26/21 21:09 Dose: 500 mls/hr Documented by: Sodium Chloride (Sodium Chloride 0.45%) 1,000 mls @ 100 mls/hr IV ASDIRECTED DIAMANTE Last Admin: 02/28/21 04:08 Dose: 100 mls/hr Documented by: Albumin Human 12.5 gm/ Premix 50 mls @ 50 mls/hr IV ONETIME ONE Stop: 03/01/21 13:59 Last Admin: 03/01/21 14:01 Dose: 50 mls/hr Documented by: Sodium Chloride (Normal Saline) 250 mls @ 250 mls/hr IV ONETIME ONE Stop: 03/01/21 13:59 Last Admin: 03/01/21 14:00 Dose: 250 mls/hr Documented by: Magnesium Sulfate 2 gm/ Premix 50 mls @ 25 mls/hr IV ONETIME ONE Stop: 03/01/21 18:59 Last Admin: 03/01/21 17:09 Dose: 25 mls/hr Documented by: Lactated Ringer's (Ringers, Lactated) 500 mls @ 250 mls/hr IV .BOLUS ONE Stop: 03/01/21 18:47 Last Admin: 03/01/21 17:07 Dose: 250 mls/hr Documented by: Albumin Human 12.5 gm/ Premix 50 mls @ 50 mls/hr IV ONETIME ONE Stop: 03/01/21 21:29 Last Admin: 03/01/21 20:50 Dose: 50 mls/hr Documented by: Magnesium Sulfate/Dextrose 1 (gm/ Premix) 100 mls @ 100 mls/hr IV ONETIME ONE Stop: 03/01/21 21:59 Last Admin: 03/01/21 20:34 Dose: 100 mls/hr Documented by: Iopamidol (Iopamidol 755 Mg/Ml 100 Ml Bottle) 100 ml IVPUSH ONETIME ONE Stop: 03/02/21 08:53 Last Admin: 03/02/21 09:02 Dose: 100 ml Documented by: Lorazepam (Lorazepam 2 Mg/Ml Sdv) 1 mg IVPUSH ONETIME ONE Stop: 02/26/21 16:49 Last Admin: 02/26/21 16:52 Dose: 1 mg Documented by: Magnesium Oxide (Magnesium Oxide 400 Mg Tab) 400 mg PO ONETIME ONE Stop: 02/26/21 13:00 Last Admin: 02/26/21 13:19 Dose: 400 mg Documented by: Metoclopramide HCl (Metoclopramide 10 Mg/2 Ml Sdv) 5 mg IVPUSH ONETIME ONE Stop: 02/26/21 11:50 Last Admin: 02/26/21 11:57 Dose: 5 mg Documented by: Metoprolol Tartrate (Metoprolol Tartrate 5 Mg/5 Ml Sdv) 5 mg IVPUSH ONETIME ONE Stop: 02/26/21 11:48 Last Admin: 02/26/21 11:57 Dose: 5 mg Documented by: Metoprolol Tartrate (Metoprolol Tartrate 5 Mg/5 Ml Sdv) 5 mg IVPUSH ONETIME ONE Stop: 02/26/21 12:20 Last Admin: 02/26/21 12:46 Dose: 5 mg Documented by: Metoprolol Tartrate (Metoprolol Tartrate 50 Mg Tab) 75 mg PO BID DIAMANTE Oxycodone HCl (Oxycodone 5 Mg Tab) 5 mg PO Q4H PRN PRN Reason: Pain (moderate 4-6) Last Admin: 02/28/21 09:12 Dose: 5 mg Documented by: Oxycodone HCl (Oxycodone 5 Mg Tab) 10 mg PO Q6H PRN PRN Reason: Pain (moderate 4-6) Last Admin: 03/02/21 03:29 Dose: 10 mg Documented by: Potassium Chloride (Potassium Chloride 20 Meq Tab.Er) 40 meq PO ONETIME ONE Stop: 02/26/21 13:00 Last Admin: 02/26/21 13:11 Dose: 40 meq Documented by: Sodium Chloride (Sodium Chloride 0.9% 10 Ml Sdv) 10 ml FLUSH ONETIME ONE Stop: 03/02/21 08:53 - Exam General: Alert, Oriented, No Acute Distress HEENT: EOMI, Mucous Membr. Moist/[place] Neck: Supple Lungs: Decreased Breath Sounds Cardiovascular: Irregular Rhythm, Tachycardia GI/Abdominal Exam: Soft, Non-Tender, No Distention Extremities: Other (2+ lower extremity edema) Skin: Warm, Dry, Intact Neurological: No New Focal Deficit Psy/Mental Status: Alert, Normal Affect - Patient Data Lab Results Last 24 hrs: Laboratory Results - last 24 hr 03/01/21 03/01/21 03/01/21 Range/Units 09:30 11:24 16:06 WBC (4.23-9.07) K/mm3 RBC (4.63-6.08) M/mm3 Hgb (13.7-17.5) gm/dl Hct (40.1-51.0) % MCV (79.0-92.2) fl MCH (25.7-32.2) pg MCHC (32.2-35.5) g/dl RDW Std Deviation (35.1-43.9) fL Plt Count (163-337) K/mm3 MPV (9.4-12.3) fl Sodium (136-145) mEq/L Potassium (3.5-5.1) mEq/L Chloride (98-107) mEq/L Carbon Dioxide (21-32) mEq/L Anion Gap (5-15) BUN (7-18) mg/dL Creatinine (0.7-1.3) mg/dL Est Cr Clr Drug Dosing mL/min Estimated GFR (MDRD) (>60) mL/min BUN/Creatinine Ratio (14-18) Glucose (70-99) mg/dL POC Glucose 93 (70-99) mg/dL Lactic Acid 1.0 (0.4-2.0) mmol/L Calcium (8.5-10.1) mg/dL Magnesium 1.2 L (1.8-2.4) mg/dL 03/01/21 03/01/21 03/01/21 Range/Units 16:27 20:43 22:00 WBC (4.23-9.07) K/mm3 RBC (4.63-6.08) M/mm3 Hgb (13.7-17.5) gm/dl Hct (40.1-51.0) % MCV (79.0-92.2) fl MCH (25.7-32.2) pg MCHC (32.2-35.5) g/dl RDW Std Deviation (35.1-43.9) fL Plt Count (163-337) K/mm3 MPV (9.4-12.3) fl Sodium (136-145) mEq/L Potassium 4.0 (3.5-5.1) mEq/L Chloride (98-107) mEq/L Carbon Dioxide (21-32) mEq/L Anion Gap (5-15) BUN (7-18) mg/dL Creatinine (0.7-1.3) mg/dL Est Cr Clr Drug Dosing mL/min Estimated GFR (MDRD) (>60) mL/min BUN/Creatinine Ratio (14-18) Glucose (70-99) mg/dL POC Glucose 144 H 120 H (70-99) mg/dL Lactic Acid (0.4-2.0) mmol/L Calcium (8.5-10.1) mg/dL Magnesium 2.0 (1.8-2.4) mg/dL 03/02/21 03/02/21 03/02/21 Range/Units 05:55 05:55 06:17 WBC 11.00 H (4.23-9.07) K/mm3 RBC 3.27 L (4.63-6.08) M/mm3 Hgb 9.3 L D (13.7-17.5) gm/dl Hct 29.5 L (40.1-51.0) % MCV 90.2 (79.0-92.2) fl MCH 28.4 (25.7-32.2) pg MCHC 31.5 L (32.2-35.5) g/dl RDW Std Deviation 49.8 H (35.1-43.9) fL Plt Count 134 L (163-337) K/mm3 MPV 9.2 L (9.4-12.3) fl Sodium 139 (136-145) mEq/L Potassium 4.1 (3.5-5.1) mEq/L Chloride 105 (98-107) mEq/L Carbon Dioxide 27 (21-32) mEq/L Anion Gap 11.1 (5-15) BUN 8 (7-18) mg/dL Creatinine 0.7 (0.7-1.3) mg/dL Est Cr Clr Drug Dosing 107.21 mL/min Estimated GFR (MDRD) > 60 (>60) mL/min BUN/Creatinine Ratio 11.4 L (14-18) Glucose 102 H (70-99) mg/dL POC Glucose 105 H (70-99) mg/dL Lactic Acid (0.4-2.0) mmol/L Calcium 8.3 L (8.5-10.1) mg/dL Magnesium (1.8-2.4) mg/dL Result Diagrams: 03/02/21 05:55 03/02/21 05:55 Sepsis Event Note - Evaluation Sepsis Screening Result: No Definite Risk - Focused Exam Vital Signs: Vital Signs Temp Pulse Resp BP Pulse Ox Pulse Ox 03/02/21 09:07 118 H 112/70 03/02/21 08:31 93 L 03/02/21 07:35 98.2 F 118 H 20 112/70 93 L 03/02/21 05:16 98.1 F 114 H 20 100/68 93 L 03/02/21 00:56 115 H 97 08/03/21 00:46 97.9 F 126 H 20 120/84 96 - Problem List Review Problem List Initiated/Reviewed/Updated: Yes - My Orders Last 24 Hours: My Active Orders 03/01/21 12:00 Echo Comp wo Cont [US] Routine 03/01/21 15:58 Metoprolol Tartrate [Lopressor] 5 mg IVPUSH Q6H PRN 03/02/21 07:26 Consult to Orthopedics [CONS] Routine 03/02/21 07:29 Notify Provider Consults [RC] ASDIRECTED 03/02/21 07:40 oxyCODONE 10 mg PO Q4H PRN 03/02/21 09:00 Sodium Chloride 0.9% [Normal Saline] 100 ml IV ASDIRECTED 03/02/21 10:32 HYDROmorphone [Dilaudid] 1 mg IVPUSH Q2H PRN 03/02/21 12:00 Diltiazem IR [Cardizem] 30 mg PO Q6HR 03/03/21 06:00 BASIC METABOLIC PANEL,BMP [CHEM] DAILY CBC W/O DIFF,HEMOGRAM [HEME] DAILY 03/04/21 06:00 BASIC METABOLIC PANEL,BMP [CHEM] DAILY CBC W/O DIFF,HEMOGRAM [HEME] DAILY 03/05/21 06:00 BASIC METABOLIC PANEL,BMP [CHEM] DAILY - Plan Plan:: This is a 60M with past medical history Diastolic CHF, Type II DM, Alcoholism, Afib (on xarelto/metoprolol/diltiazem) presenting for evaluation of afib w/rvr 1. Afib w/RVR 2. SIRS syndrome; r/o sepsis; tachycardia; leukocytosis; lactic acidosis; sepsis ruled out 3. Hx of Diastolic CHF 4. Hx of alcoholism 5. Hx of chronic left hip pain 6. Hx of Type II DM with peripheral neuropathy 7. Obesity 8. Suspected ABRAHAN 9. Alcohol withdrawal syndrome 10. hypomagnesemia Plan -IVF bolus completed; discontinued IVF -serial lactate completed -blood cx NGTD -empiric zosyn stopped -hold metformin -increase metoprolol to 100 mg BID 02/27 -start amiodarone 200 mg BID per cardiology outpatient recs -diltiazem start 30 mg q6h QID 03/02 for rate control -tele -monitor I&O -CT left hip results showing avascular necrosis of hip; case discussed with neonatal critical care nurse ortho likely will need elective hip replacement; WBAT -Ortho consult for today -pain control -CIWA protocol; monitor for withdrawal symptoms -PT, OT, SW consult -Echo today -CT PE study today Code-Full code DVT ppx-xarelto Dispo-TBD likely will need short term rehab; anticipated discharge 2-3 days; needs rate control
[2021-03-02] MEDS: Diltiazem IR 30 MG Tab PO SCH ×2 (11:16→17:13)
[2021-03-02] MEDS ORDERED: cefTRIAXone 2 GM in Sodium Chloride 0.9% 100 ML IV SCH (16:00)
[2021-03-02] MEDS: Doxycycline 100 MG Cap PO SCH ×2 (16:12→20:49)
[2021-03-02] MEDS: Potassium Chloride 20 MEQ Tab.ER PO SCH (20:48)
[2021-03-02] MEDS: Gabapentin 600 MG Tab PO SCH (20:49)
[2021-03-03] MEDS: LORazepam 1 MG Tab PO SCH ×4 (00:47→22:23)
[2021-03-03] MEDS: Diltiazem IR 30 MG Tab PO SCH ×3 (00:47→11:30)
[2021-03-03] MEDS: Pantoprazole 40 MG Tab.CR PO SCH (06:20)
[2021-03-03] MEDS: oxyCODONE 5 MG Tab PO PRN ×4 (06:20→23:15)
[2021-03-03] MEDS: Insulin Lispro 100 UNIT/ML 10 ML Vial SUBCUT SCH ×4 (06:21→22:15)
[2021-03-03] MEDS: Rivaroxaban 10 MG Tab PO SCH (09:43)
[2021-03-03] MEDS: Thiamine 100 MG Tab PO SCH (09:43)
[2021-03-03] MEDS: Doxycycline 100 MG Cap PO SCH (09:43)
[2021-03-03] MEDS: Amiodarone 200 MG Tab PO SCH ×2 (09:44→21:52)
[2021-03-03] MEDS: Metoprolol Tartrate 100 MG Tab PO SCH ×2 (09:44→21:52)
[2021-03-03] MEDS: Gabapentin 300 MG Cap PO SCH (11:30)
--- NOTE | 2021-03-03 11:37 | PCM.PN ---
- General Info Date of Service: 03/03/21 Admission Dx/Problem (Free Text): Afib w/RVR Subjective Update: patient continues to have withdrawal symptoms; but CIWA scores trending down complains of neuropathic foot pain denies chest pain and sob on 3 liters of oxygen Functional Status: Reports: Tolerating Diet - Review of Systems General: Reports: Weakness Pulmonary: Reports: Cough Cardiovascular: Reports: No Symptoms Gastrointestinal: Reports: No Symptoms Skin: Reports: No Symptoms Neurological: Reports: Confusion - Patient Data Vitals - Most Recent: Last Vital Signs Temp 100.0 F 03/03/21 11:16 Pulse 106 H 03/03/21 11:16 Resp 20 03/03/21 11:16 BP 120/71 03/03/21 11:16 Pulse Ox 92 L 03/03/21 11:33 Weight - Most Recent: 252 lb 8 oz I&O - Last 24 Hours: Intake & Output 03/02/21 03/03/21 03/03/21 22:59 06:59 14:59 Intake Total 890 800 Output Total 800 600 Balance 90 200 Lab Results Last 24 Hours: Laboratory Results - last 24 hr 03/02/21 03/02/21 03/02/21 Range/Units 05:55 16:11 20:39 WBC (4.23-9.07) K/mm3 RBC (4.63-6.08) M/mm3 Hgb (13.7-17.5) gm/dl Hct (40.1-51.0) % MCV (79.0-92.2) fl MCH (25.7-32.2) pg MCHC (32.2-35.5) g/dl RDW Std Deviation (35.1-43.9) fL Plt Count (163-337) K/mm3 MPV (9.4-12.3) fl Sodium (136-145) mEq/L Potassium (3.5-5.1) mEq/L Chloride (98-107) mEq/L Carbon Dioxide (21-32) mEq/L Anion Gap (5-15) BUN (7-18) mg/dL Creatinine (0.7-1.3) mg/dL Est Cr Clr Drug Dosing mL/min Estimated GFR (MDRD) (>60) mL/min BUN/Creatinine Ratio (14-18) Glucose (70-99) mg/dL POC Glucose 125 H 144 H (70-99) mg/dL Calcium (8.5-10.1) mg/dL Magnesium 1.6 L (1.8-2.4) mg/dL 03/03/21 03/03/21 03/03/21 Range/Units 06:04 06:04 06:14 WBC 10.46 H (4.23-9.07) K/mm3 RBC 3.41 L (4.63-6.08) M/mm3 Hgb 9.8 L (13.7-17.5) gm/dl Hct 31.2 L (40.1-51.0) % MCV 91.5 (79.0-92.2) fl MCH 28.7 (25.7-32.2) pg MCHC 31.4 L (32.2-35.5) g/dl RDW Std Deviation 52.0 H (35.1-43.9) fL Plt Count 132 L (163-337) K/mm3 MPV 9.5 (9.4-12.3) fl Sodium 141 (136-145) mEq/L Potassium 4.1 (3.5-5.1) mEq/L Chloride 104 (98-107) mEq/L Carbon Dioxide 28 (21-32) mEq/L Anion Gap 13.1 (5-15) BUN 7 (7-18) mg/dL Creatinine 0.8 (0.7-1.3) mg/dL Est Cr Clr Drug Dosing 93.81 mL/min Estimated GFR (MDRD) > 60 (>60) mL/min BUN/Creatinine Ratio 8.8 L (14-18) Glucose 88 (70-99) mg/dL POC Glucose 83 (70-99) mg/dL Calcium 8.7 (8.5-10.1) mg/dL Magnesium (1.8-2.4) mg/dL 03/03/21 Range/Units 10:41 WBC (4.23-9.07) K/mm3 RBC (4.63-6.08) M/mm3 Hgb (13.7-17.5) gm/dl Hct (40.1-51.0) % MCV (79.0-92.2) fl MCH (25.7-32.2) pg MCHC (32.2-35.5) g/dl RDW Std Deviation (35.1-43.9) fL Plt Count (163-337) K/mm3 MPV (9.4-12.3) fl Sodium (136-145) mEq/L Potassium (3.5-5.1) mEq/L Chloride (98-107) mEq/L Carbon Dioxide (21-32) mEq/L Anion Gap (5-15) BUN (7-18) mg/dL Creatinine (0.7-1.3) mg/dL Est Cr Clr Drug Dosing mL/min Estimated GFR (MDRD) (>60) mL/min BUN/Creatinine Ratio (14-18) Glucose (70-99) mg/dL POC Glucose 112 H (70-99) mg/dL Calcium (8.5-10.1) mg/dL Magnesium (1.8-2.4) mg/dL Med Orders - Current: Current Medications Acetaminophen (Acetaminophen 325 Mg Tab) 650 mg PO Q4H PRN PRN Reason: Pain (Mild 1-3)/fever Last Admin: 02/28/21 08:00 Dose: 650 mg Documented by: Amiodarone HCl (Amiodarone 200 Mg Tab) 200 mg PO BID [facility] Last Admin: 03/03/21 09:44 Dose: 200 mg Documented by: Diltiazem HCl (Diltiazem Ir 30 Mg Tab) 30 mg PO Q6HR [facility] Last Admin: 03/03/21 11:30 Dose: 30 mg Documented by: Doxycycline Hyclate (Doxycycline 100 Mg Cap) 100 mg PO BID [facility] Last Admin: 03/03/21 09:43 Dose: 100 mg Documented by: Gabapentin (Gabapentin 600 Mg Tab) 600 mg PO BEDTIME [facility] Last Admin: 03/02/21 20:49 Dose: 600 mg Documented by: Gabapentin (Gabapentin 300 Mg Cap) 300 mg PO DAILY [facility] Last Admin: 03/03/21 11:30 Dose: 300 mg Documented by: Hydromorphone HCl (Hydromorphone 0.5 Mg/0.5 Ml Syringe) 1 mg IVPUSH Q2H PRN PRN Reason: Pain (severe 7-10) Ceftriaxone Sodium 2 gm/ (Sodium Chloride) 100 mls @ 200 mls/hr IV Q24H [facility] Last Admin: 03/02/21 16:15 Dose: 200 mls/hr Documented by: Insulin Human Lispro (Insulin Lispro 100 Unit/Ml 10 Ml Vial) 0 unit SUBCUT QIDACANDBED [facility]; Protocol Last Admin: 03/03/21 10:47 Dose: Not Given Documented by: Lorazepam (Lorazepam 1 Mg Tab) 1 - 2 mg PO ASDIRECTED [facility]; Protocol Last Admin: 03/03/21 00:47 Dose: 1 mg Documented by: Melatonin (Melatonin 3 Mg Tab) 6 mg PO BEDTIME PRN PRN Reason: Sleep Last Admin: 02/28/21 21:45 Dose: 6 mg Documented by: Metoprolol Tartrate (Metoprolol Tartrate 100 Mg Tab) 100 mg PO BID [facility] Last Admin: 03/03/21 09:44 Dose: 100 mg Documented by: Metoprolol Tartrate (Metoprolol Tartrate 5 Mg/5 Ml Sdv) 5 mg IVPUSH Q6H PRN PRN Reason: Arrhythmia Ondansetron HCl (Ondansetron 4 Mg/2 Ml Sdv) 4 mg IV Q4H PRN PRN Reason: Nausea/Vomiting Last Admin: 02/28/21 10:08 Dose: 4 mg Documented by: Oxycodone HCl (Oxycodone 5 Mg Tab) 10 mg PO Q4H PRN PRN Reason: Pain (moderate 4-6) Last Admin: 03/03/21 10:22 Dose: 10 mg Documented by: Pantoprazole Sodium (Pantoprazole 40 Mg Tab.Cr) 40 mg PO ACBREAKFAST [facility] Last Admin: 03/03/21 06:20 Dose: 40 mg Documented by: Potassium Chloride (Potassium Chloride 20 Meq Tab.Er) 40 meq PO BEDTIME [facility] Last Admin: 03/02/21 20:48 Dose: 40 meq Documented by: Rivaroxaban (Rivaroxaban 10 Mg Tab) 20 mg PO DAILY [facility] Last Admin: 03/03/21 09:43 Dose: 20 mg Documented by: Sodium Chloride (Sodium Chloride 0.9% 10 Ml Syringe) 10 ml FLUSH ASDIRECTED PRN PRN Reason: Keep Vein Open Last Admin: 03/02/21 09:05 Dose: 10 ml Documented by: Thiamine HCl (Thiamine 100 Mg Tab) 100 mg PO DAILY [facility] Last Admin: 03/03/21 09:43 Dose: 100 mg Documented by: Discontinued Medications Diatrizoate Meglum/Diatrizoate Sod (Diatrizoate Meglumine/Diatrizoate Sodium 37% 120 Ml Bottle) 120 ml PO ONETIME ONE Stop: 03/02/21 08:53 Last Admin: 03/02/21 09:04 Dose: Not Given Documented by: Diltiazem HCl (Diltiazem 50 Mg/10 Ml Sdv) 10 mg IVPUSH ONETIME ONE Stop: 02/26/21 14:22 Last Admin: 02/26/21 14:27 Dose: 10 mg Documented by: Diltiazem HCl (Diltiazem 50 Mg/10 Ml Sdv) 10 mg IVPUSH ONETIME ONE Stop: 02/26/21 15:19 Last Admin: 02/26/21 15:22 Dose: 10 mg Documented by: Diltiazem HCl (Diltiazem 120 Mg Cap.Cd) 360 mg PO DAILY [facility] Diltiazem HCl (Diltiazem 120 Mg Cap.Cd) 120 mg PO DAILY [facility] Last Admin: 03/02/21 12:03 Dose: Not Given Documented by: Folic Acid (Folic Acid 1 Mg Tab) 1 mg PO DAILY [facility] Stop: 03/01/21 09:01 Last Admin: 03/01/21 08:07 Dose: 1 mg Documented by: Furosemide (Furosemide 40 Mg/4 Ml Vial) 40 mg IVPUSH NOW ONE Stop: 03/01/21 09:14 Last Admin: 03/01/21 09:33 Dose: 40 mg Documented by: Furosemide (Furosemide 20 Mg/2 Ml Vial) 20 mg IVPUSH 0600,1800 [facility] Gabapentin (Gabapentin 300 Mg Cap) 300 mg PO ONETIME ONE Stop: 03/01/21 09:13 Last Admin: 03/01/21 09:33 Dose: 300 mg Documented by: Hydromorphone HCl (Hydromorphone 0.5 Mg/0.5 Ml Syringe) 0.5 mg IVPUSH Q2H PRN PRN Reason: Pain (severe 7-10) Last Admin: 03/02/21 00:54 Dose: 0.5 mg Documented by: Sodium Chloride (Normal Saline) 1,000 mls @ 150 mls/hr IV ASDIRECTED [facility] Last Admin: 02/27/21 00:46 Dose: 150 mls/hr Documented by: Sodium Chloride (Normal Saline) 1,000 mls @ 999 mls/hr IV ONETIME ONE Stop: 02/26/21 13:58 Last Admin: 02/26/21 13:08 Dose: 999 mls/hr Documented by: Diltiazem HCl 100 mg/ Sodium (Chloride) 100 mls @ 5 mls/hr IV TITRATE [facility]; Protocol Last Titration: 02/27/21 00:01 Dose: 0 mg/hr, 0 mls/hr Documented by: Lactated Ringer's (Ringers, Lactated) 1,000 mls @ 500 mls/hr IV .BOLUS ONE Stop: 02/26/21 18:44 Last Admin: 02/26/21 17:23 Dose: 500 mls/hr Documented by: Piperacillin Sod/Tazobactam (Sod 4.5 gm/ Sodium Chloride) 100 mls @ 25 mls/hr IV Q8H [facility] Last Admin: 02/27/21 02:33 Dose: 25 mls/hr Documented by: Magnesium Sulfate/Dextrose 1 (gm/ Premix) 100 mls @ 100 mls/hr IV ONETIME ONE Stop: 02/26/21 17:59 Last Admin: 02/26/21 17:51 Dose: 100 mls/hr Documented by: Piperacillin Sod/Tazobactam (Sod 4.5 gm/ Sodium Chloride) 100 mls @ 200 mls/hr IV ONETIME ONE Stop: 02/26/21 19:29 Piperacillin Sod/Tazobactam (Sod 4.5 gm/ Sodium Chloride) 100 mls @ 200 mls/hr IV ONETIME ONE Stop: 02/26/21 20:29 Last Admin: 02/26/21 20:00 Dose: 200 mls/hr Documented by: Sodium Chloride (Normal Saline) 1,000 mls @ 500 mls/hr IV ASDIRECTED [facility] Stop: 02/26/21 23:06 Last Admin: 02/26/21 21:09 Dose: 500 mls/hr Documented by: Sodium Chloride (Sodium Chloride 0.45%) 1,000 mls @ 100 mls/hr IV ASDIRECTED [facility] Last Admin: 02/28/21 04:08 Dose: 100 mls/hr Documented by: Albumin Human 12.5 gm/ Premix 50 mls @ 50 mls/hr IV ONETIME ONE Stop: 03/01/21 13:59 Last Admin: 03/01/21 14:01 Dose: 50 mls/hr Documented by: Sodium Chloride (Normal Saline) 250 mls @ 250 mls/hr IV ONETIME ONE Stop: 03/01/21 13:59 Last Admin: 03/01/21 14:00 Dose: 250 mls/hr Documented by: Magnesium Sulfate 2 gm/ Premix 50 mls @ 25 mls/hr IV ONETIME ONE Stop: 03/01/21 18:59 Last Admin: 03/01/21 17:09 Dose: 25 mls/hr Documented by: Lactated Ringer's (Ringers, Lactated) 500 mls @ 250 mls/hr IV .BOLUS ONE Stop: 03/01/21 18:47 Last Admin: 03/01/21 17:07 Dose: 250 mls/hr Documented by: Albumin Human 12.5 gm/ Premix 50 mls @ 50 mls/hr IV ONETIME ONE Stop: 03/01/21 21:29 Last Admin: 03/01/21 20:50 Dose: 50 mls/hr Documented by: Magnesium Sulfate/Dextrose 1 (gm/ Premix) 100 mls @ 100 mls/hr IV ONETIME ONE Stop: 03/01/21 21:59 Last Admin: 03/01/21 20:34 Dose: 100 mls/hr Documented by: Sodium Chloride (Normal Saline) 100 mls @ 60 mls/hr IV ASDIRECTED [facility] Stop: 03/02/21 12:00 Last Admin: 03/02/21 09:01 Dose: 60 mls/hr Documented by: Iopamidol (Iopamidol 755 Mg/Ml 100 Ml Bottle) 100 ml IVPUSH ONETIME ONE Stop: 03/02/21 08:53 Last Admin: 03/02/21 09:02 Dose: 100 ml Documented by: Lorazepam (Lorazepam 2 Mg/Ml Sdv) 1 mg IVPUSH ONETIME ONE Stop: 02/26/21 16:49 Last Admin: 02/26/21 16:52 Dose: 1 mg Documented by: Magnesium Oxide (Magnesium Oxide 400 Mg Tab) 400 mg PO ONETIME ONE Stop: 02/26/21 13:00 Last Admin: 02/26/21 13:19 Dose: 400 mg Documented by: Metoclopramide HCl (Metoclopramide 10 Mg/2 Ml Sdv) 5 mg IVPUSH ONETIME ONE Stop: 02/26/21 11:50 Last Admin: 02/26/21 11:57 Dose: 5 mg Documented by: Metoprolol Tartrate (Metoprolol Tartrate 5 Mg/5 Ml Sdv) 5 mg IVPUSH ONETIME ONE Stop: 02/26/21 11:48 Last Admin: 02/26/21 11:57 Dose: 5 mg Documented by: Metoprolol Tartrate (Metoprolol Tartrate 5 Mg/5 Ml Sdv) 5 mg IVPUSH ONETIME ONE Stop: 02/26/21 12:20 Last Admin: 02/26/21 12:46 Dose: 5 mg Documented by: Metoprolol Tartrate (Metoprolol Tartrate 50 Mg Tab) 75 mg PO BID [facility] Oxycodone HCl (Oxycodone 5 Mg Tab) 5 mg PO Q4H PRN PRN Reason: Pain (moderate 4-6) Last Admin: 02/28/21 09:12 Dose: 5 mg Documented by: Oxycodone HCl (Oxycodone 5 Mg Tab) 10 mg PO Q6H PRN PRN Reason: Pain (moderate 4-6) Last Admin: 03/02/21 03:29 Dose: 10 mg Documented by: Potassium Chloride (Potassium Chloride 20 Meq Tab.Er) 40 meq PO ONETIME ONE Stop: 02/26/21 13:00 Last Admin: 02/26/21 13:11 Dose: 40 meq Documented by: Sodium Chloride (Sodium Chloride 0.9% 10 Ml Sdv) 10 ml FLUSH ONETIME ONE Stop: 03/02/21 08:53 Last Admin: 03/02/21 12:03 Dose: 10 ml Documented by: - Exam Quality Assessment: Supplemental Oxygen General: Cooperative, No Acute Distress HEENT: EOMI, Mucous Membr. Moist/[place] Neck: Supple Lungs: Decreased Breath Sounds Cardiovascular: Irregular Rhythm, Tachycardia GI/Abdominal Exam: Soft, Non-Tender, No Distention Extremities: Other (2+ Bilateral edema of lower extremities ) Skin: Warm, Dry, Intact Neurological: Normal Speech, Cranial Nerves Intact Psy/Mental Status: Normal Affect, Normal Mood - Patient Data Lab Results Last 24 hrs: Laboratory Results - last 24 hr 03/02/21 03/02/21 03/02/21 Range/Units 05:55 16:11 20:39 WBC (4.23-9.07) K/mm3 RBC (4.63-6.08) M/mm3 Hgb (13.7-17.5) gm/dl Hct (40.1-51.0) % MCV (79.0-92.2) fl MCH (25.7-32.2) pg MCHC (32.2-35.5) g/dl RDW Std Deviation (35.1-43.9) fL Plt Count (163-337) K/mm3 MPV (9.4-12.3) fl Sodium (136-145) mEq/L Potassium (3.5-5.1) mEq/L Chloride (98-107) mEq/L Carbon Dioxide (21-32) mEq/L Anion Gap (5-15) BUN (7-18) mg/dL Creatinine (0.7-1.3) mg/dL Est Cr Clr Drug Dosing mL/min Estimated GFR (MDRD) (>60) mL/min BUN/Creatinine Ratio (14-18) Glucose (70-99) mg/dL POC Glucose 125 H 144 H (70-99) mg/dL Calcium (8.5-10.1) mg/dL Magnesium 1.6 L (1.8-2.4) mg/dL 03/03/21 03/03/21 03/03/21 Range/Units 06:04 06:04 06:14 WBC 10.46 H (4.23-9.07) K/mm3 RBC 3.41 L (4.63-6.08) M/mm3 Hgb 9.8 L (13.7-17.5) gm/dl Hct 31.2 L (40.1-51.0) % MCV 91.5 (79.0-92.2) fl MCH 28.7 (25.7-32.2) pg MCHC 31.4 L (32.2-35.5) g/dl RDW Std Deviation 52.0 H (35.1-43.9) fL Plt Count 132 L (163-337) K/mm3 MPV 9.5 (9.4-12.3) fl Sodium 141 (136-145) mEq/L Potassium 4.1 (3.5-5.1) mEq/L Chloride 104 (98-107) mEq/L Carbon Dioxide 28 (21-32) mEq/L Anion Gap 13.1 (5-15) BUN 7 (7-18) mg/dL Creatinine 0.8 (0.7-1.3) mg/dL Est Cr Clr Drug Dosing 93.81 mL/min Estimated GFR (MDRD) > 60 (>60) mL/min BUN/Creatinine Ratio 8.8 L (14-18) Glucose 88 (70-99) mg/dL POC Glucose 83 (70-99) mg/dL Calcium 8.7 (8.5-10.1) mg/dL Magnesium (1.8-2.4) mg/dL 03/03/21 Range/Units 10:41 WBC (4.23-9.07) K/mm3 RBC (4.63-6.08) M/mm3 Hgb (13.7-17.5) gm/dl Hct (40.1-51.0) % MCV (79.0-92.2) fl MCH (25.7-32.2) pg MCHC (32.2-35.5) g/dl RDW Std Deviation (35.1-43.9) fL Plt Count (163-337) K/mm3 MPV (9.4-12.3) fl Sodium (136-145) mEq/L Potassium (3.5-5.1) mEq/L Chloride (98-107) mEq/L Carbon Dioxide (21-32) mEq/L Anion Gap (5-15) BUN (7-18) mg/dL Creatinine (0.7-1.3) mg/dL Est Cr Clr Drug Dosing mL/min Estimated GFR (MDRD) (>60) mL/min BUN/Creatinine Ratio (14-18) Glucose (70-99) mg/dL POC Glucose 112 H (70-99) mg/dL Calcium (8.5-10.1) mg/dL Magnesium (1.8-2.4) mg/dL Result Diagrams: 03/03/21 06:04 03/03/21 06:04 Sepsis Event Note - Evaluation Sepsis Screening Result: No Definite Risk - Focused Exam Vital Signs: Vital Signs Temp Pulse Resp BP Pulse Ox Pulse Ox Pulse Ox 03/03/21 11:33 92 L 03/03/21 11:16 100.0 F 106 H 20 120/71 91 L 03/03/21 09:44 97 108/79 03/03/21 08:42 94 L 03/03/21 07:56 97 20 108/79 96 03/03/21 06:25 100 20 115/76 96 03/03/21 06:10 92 L 03/03/21 06:05 71 L 03/03/21 00:46 97.7 F 101 H 18 123/76 99 - Problem List Review Problem List Initiated/Reviewed/Updated: Yes - My Orders Last 24 Hours: My Active Orders 03/02/21 12:00 Diltiazem IR [Cardizem] 30 mg PO Q6HR 03/02/21 15:30 Doxycycline [Vibramycin] 100 mg PO BID 03/02/21 16:00 cefTRIAXone [Rocephin] 2 gm Sodium Chloride 0.9% [Normal Saline] 100 ml IV Q24H 03/03/21 11:00 Gabapentin [Neurontin] 300 mg PO DAILY 03/04/21 06:00 BASIC METABOLIC PANEL,BMP [CHEM] DAILY CBC W/O DIFF,HEMOGRAM [HEME] DAILY 03/05/21 06:00 BASIC METABOLIC PANEL,BMP [CHEM] DAILY - Plan Plan:: This is a 60M with past medical history Diastolic CHF, Type II DM, Alcoholism, Afib (on xarelto/metoprolol/diltiazem) presenting for evaluation of afib w/rvr 1. Afib w/RVR; RVR improving as withdrawal symptoms decrease 2. SIRS syndrome; r/o sepsis; tachycardia; leukocytosis; lactic acidosis; sepsis ruled out 3. Hx of Diastolic CHF 4. Hx of alcoholism 5. Hx of chronic left hip pain 6. Hx of Type II DM with peripheral neuropathy 7. Obesity 8. Suspected ABRAHAN 9. Alcohol withdrawal syndrome 10. hypomagnesemia 11. 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
--- NOTE | 2021-03-03 14:38 | CR ---
Chest: Portable view of the chest was obtained. Comparison: Prior chest CT study of 03/02/21 and chest x-ray of 03/01/21. Diffuse increased lung markings are seen within the right side of the chest. Volume loss is noted within the right lung. These findings are stable from prior exam. Left lung shows no acute parenchymal change. Bony structures show nothing acute. Heart size and mediastinum are stable. Impression: 1. Stable findings from prior chest x-ray. 2. Nothing acute is definitely appreciated. Diagnostic code #2
[2021-03-03] MEDS ORDERED: Vancomycin 1.75 GM in Sodium Chloride 0.9% 500 ML IV ONE (15:00)
[2021-03-03] MEDS: Piperacillin/Tazobactam 4.5 GM in Sodium Chloride 0.9% 100 ML IV SCH ×2 (15:11→21:52)
[2021-03-03] MEDS: Gabapentin 600 MG Tab PO SCH (21:52)
[2021-03-03] MEDS: Potassium Chloride 20 MEQ Tab.ER PO SCH (21:52)
[2021-03-04] MEDS: LORazepam 1 MG Tab PO SCH ×2 (00:07→08:15)
[2021-03-04] MEDS: Magnesium Hydroxide 400 MG/5 ML Susp 30 ML Cup PO PRN (00:08)
[2021-03-04] MEDS: Vancomycin 1 GM, Vancomycin 500 MG in Sodium Chloride 0.9% 500 ML IV SCH ×2 (02:07→15:28)
[2021-03-04] MEDS: Pantoprazole 40 MG Tab.CR PO SCH (06:26)
[2021-03-04] MEDS: Piperacillin/Tazobactam 4.5 GM in Sodium Chloride 0.9% 100 ML IV SCH ×3 (06:27→22:16)
[2021-03-04] MEDS: Insulin Lispro 100 UNIT/ML 10 ML Vial SUBCUT SCH ×4 (06:58→21:20)
[2021-03-04] MEDS: Amiodarone 200 MG Tab PO SCH ×2 (08:16→20:51)
[2021-03-04] MEDS: Gabapentin 300 MG Cap PO SCH (08:16)
[2021-03-04] MEDS: Thiamine 100 MG Tab PO SCH (08:21)
[2021-03-04] MEDS: Metoprolol Tartrate 100 MG Tab PO SCH ×2 (08:21→20:49)
[2021-03-04] MEDS: Rivaroxaban 10 MG Tab PO SCH (08:22)
--- NOTE | 2021-03-04 08:39 | PCM.PN ---
- General Info Date of Service: 03/04/21 Admission Dx/Problem (Free Text): Afib w/RVR Subjective Update: patient with temp of 100.2F last night he was delirious last night; he tells me he thought he was at home with friends denies chest pain continues to endorse lower extremity foot pain tachycardia improving - Review of Systems General: Reports: Fever HEENT: Reports: No Symptoms Pulmonary: Reports: No Symptoms Gastrointestinal: Reports: No Symptoms Musculoskeletal: Reports: Joint Pain Skin: Reports: No Symptoms Neurological: Reports: Confusion - Patient Data Vitals - Most Recent: Last Vital Signs Temp 99.9 F 03/04/21 07:16 Pulse 120 H 03/04/21 08:21 Resp 16 03/04/21 07:16 BP 123/75 03/04/21 08:21 Pulse Ox 91 L 03/04/21 07:16 Weight - Most Recent: 253 lb 12.8 oz I&O - Last 24 Hours: Intake & Output 03/03/21 03/04/21 03/04/21 22:59 06:59 14:59 Intake Total 800 1100 Output Total 600 100 Balance 200 1000 Lab Results Last 24 Hours: Laboratory Results - last 24 hr 03/03/21 03/03/21 03/03/21 Range/Units 10:41 14:02 14:33 WBC (4.23-9.07) K/mm3 RBC (4.63-6.08) M/mm3 Hgb (13.7-17.5) gm/dl Hct (40.1-51.0) % MCV (79.0-92.2) fl MCH (25.7-32.2) pg MCHC (32.2-35.5) g/dl RDW Std Deviation (35.1-43.9) fL Plt Count (163-337) K/mm3 MPV (9.4-12.3) fl Sodium (136-145) mEq/L Potassium (3.5-5.1) mEq/L Chloride (98-107) mEq/L Carbon Dioxide (21-32) mEq/L Anion Gap (5-15) BUN (7-18) mg/dL Creatinine (0.7-1.3) mg/dL Est Cr Clr Drug Dosing mL/min Estimated GFR (MDRD) (>60) mL/min BUN/Creatinine Ratio (14-18) Glucose (70-99) mg/dL POC Glucose 112 H (70-99) mg/dL Lactic Acid 0.9 (0.4-2.0) mmol/L Calcium (8.5-10.1) mg/dL Urine Color Yellow (Yellow) Urine Appearance Clear (Clear) Urine pH 6.0 (5.0-8.0) Ur Specific [place] 1.025 (1.005-1.030) Urine Protein 1+ H (Negative) Urine Glucose (UA) Negative (Negative) Urine Ketones Trace H (Negative) Urine Occult Blood 3+ H (Negative) Urine Nitrite Negative (Negative) Urine Bilirubin 2+ H (Negative) Urine Urobilinogen 2.0 H (0.2-1.0) Ur Leukocyte Esterase Negative (Negative) Urine RBC 10-20 H (0-5) /hpf Urine WBC 0-5 (0-5) /hpf Ur Squamous Epith Cells 0-5 (0-5) /hpf Urine Bacteria Few (FEW) /hpf Urine Mucus Few (FEW) /hpf 03/03/21 03/03/21 03/04/21 Range/Units 16:45 22:10 05:40 WBC 8.01 (4.23-9.07) K/mm3 RBC 3.21 L (4.63-6.08) M/mm3 Hgb 9.2 L (13.7-17.5) gm/dl Hct 28.9 L (40.1-51.0) % MCV 90.0 (79.0-92.2) fl MCH 28.7 (25.7-32.2) pg MCHC 31.8 L (32.2-35.5) g/dl RDW Std Deviation 49.8 H (35.1-43.9) fL Plt Count 116 L (163-337) K/mm3 MPV 9.9 (9.4-12.3) fl Sodium (136-145) mEq/L Potassium (3.5-5.1) mEq/L Chloride (98-107) mEq/L Carbon Dioxide (21-32) mEq/L Anion Gap (5-15) BUN (7-18) mg/dL Creatinine (0.7-1.3) mg/dL Est Cr Clr Drug Dosing mL/min Estimated GFR (MDRD) (>60) mL/min BUN/Creatinine Ratio (14-18) Glucose (70-99) mg/dL POC Glucose 108 H 142 H (70-99) mg/dL Lactic Acid (0.4-2.0) mmol/L Calcium (8.5-10.1) mg/dL Urine Color (Yellow) Urine Appearance (Clear) Urine pH (5.0-8.0) Ur Specific [place] (1.005-1.030) Urine Protein (Negative) Urine Glucose (UA) (Negative) Urine Ketones (Negative) Urine Occult Blood (Negative) Urine Nitrite (Negative) Urine Bilirubin (Negative) Urine Urobilinogen (0.2-1.0) Ur Leukocyte Esterase (Negative) Urine RBC (0-5) /hpf Urine WBC (0-5) /hpf Ur Squamous Epith Cells (0-5) /hpf Urine Bacteria (FEW) /hpf Urine Mucus (FEW) /hpf 03/04/21 03/04/21 Range/Units 05:40 06:34 WBC (4.23-9.07) K/mm3 RBC (4.63-6.08) M/mm3 Hgb (13.7-17.5) gm/dl Hct (40.1-51.0) % MCV (79.0-92.2) fl MCH (25.7-32.2) pg MCHC (32.2-35.5) g/dl RDW Std Deviation (35.1-43.9) fL Plt Count (163-337) K/mm3 MPV (9.4-12.3) fl Sodium 141 (136-145) mEq/L Potassium 4.5 (3.5-5.1) mEq/L Chloride 105 (98-107) mEq/L Carbon Dioxide 25 (21-32) mEq/L Anion Gap 15.5 H (5-15) BUN 10 (7-18) mg/dL Creatinine 0.8 (0.7-1.3) mg/dL Est Cr Clr Drug Dosing 93.81 mL/min Estimated GFR (MDRD) > 60 (>60) mL/min BUN/Creatinine Ratio 12.5 L (14-18) Glucose 95 (70-99) mg/dL POC Glucose 91 (70-99) mg/dL Lactic Acid (0.4-2.0) mmol/L Calcium 8.4 L (8.5-10.1) mg/dL Urine Color (Yellow) Urine Appearance (Clear) Urine pH (5.0-8.0) Ur Specific [place] (1.005-1.030) Urine Protein (Negative) Urine Glucose (UA) (Negative) Urine Ketones (Negative) Urine Occult Blood (Negative) Urine Nitrite (Negative) Urine Bilirubin (Negative) Urine Urobilinogen (0.2-1.0) Ur Leukocyte Esterase (Negative) Urine RBC (0-5) /hpf Urine WBC (0-5) /hpf Ur Squamous Epith Cells (0-5) /hpf Urine Bacteria (FEW) /hpf Urine Mucus (FEW) /hpf Med Orders - Current: Current Medications Acetaminophen (Acetaminophen 325 Mg Tab) 650 mg PO Q4H PRN PRN Reason: Pain (Mild 1-3)/fever Last Admin: 02/28/21 08:00 Dose: 650 mg Documented by: Amiodarone HCl (Amiodarone 200 Mg Tab) 200 mg PO BID [facility] Last Admin: 03/04/21 08:16 Dose: 200 mg Documented by: Gabapentin (Gabapentin 600 Mg Tab) 600 mg PO BEDTIME [facility] Last Admin: 03/03/21 21:52 Dose: 600 mg Documented by: Gabapentin (Gabapentin 300 Mg Cap) 300 mg PO DAILY [facility] Last Admin: 03/04/21 08:16 Dose: 300 mg Documented by: Hydromorphone HCl (Hydromorphone 0.5 Mg/0.5 Ml Syringe) 1 mg IVPUSH Q2H PRN PRN Reason: Pain (severe 7-10) Piperacillin Sod/Tazobactam (Sod 4.5 gm/ Sodium Chloride) 100 mls @ 25 mls/hr IV Q8H [facility] Last Admin: 03/04/21 06:27 Dose: 25 mls/hr Documented by: Vancomycin HCl 1 gm/Vancomycin HCl 500 mg/ Sodium Chloride 500 mls @ 250 mls/hr IV Q12H [facility] Last Admin: 03/04/21 02:07 Dose: 250 mls/hr Documented by: Insulin Human Lispro (Insulin Lispro 100 Unit/Ml 10 Ml Vial) 0 unit SUBCUT QIDACANDBED [facility]; Protocol Last Admin: 03/04/21 06:58 Dose: Not Given Documented by: Lorazepam (Lorazepam 1 Mg Tab) 1 - 2 mg PO ASDIRECTED [facility]; Protocol Last Admin: 03/04/21 08:15 Dose: 1 mg Documented by: Magnesium Hydroxide (Magnesium Hydroxide 400 Mg/5 Ml Susp 30 Ml Cup) 30 ml PO DAILY PRN PRN Reason: Constipation Last Admin: 03/04/21 00:08 Dose: 30 ml Documented by: Melatonin (Melatonin 3 Mg Tab) 6 mg PO BEDTIME PRN PRN Reason: Sleep Last Admin: 02/28/21 21:45 Dose: 6 mg Documented by: Metoprolol Tartrate (Metoprolol Tartrate 100 Mg Tab) 100 mg PO BID [facility] Last Admin: 03/04/21 08:21 Dose: 100 mg Documented by: Metoprolol Tartrate (Metoprolol Tartrate 5 Mg/5 Ml Sdv) 5 mg IVPUSH Q6H PRN PRN Reason: Arrhythmia Ondansetron HCl (Ondansetron 4 Mg/2 Ml Sdv) 4 mg IV Q4H PRN PRN Reason: Nausea/Vomiting Last Admin: 02/28/21 10:08 Dose: 4 mg Documented by: Oxycodone HCl (Oxycodone 5 Mg Tab) 10 mg PO Q4H PRN PRN Reason: Pain (moderate 4-6) Last Admin: 03/03/21 23:15 Dose: 10 mg Documented by: Pantoprazole Sodium (Pantoprazole 40 Mg Tab.Cr) 40 mg PO ACBREAKFAST [facility] Last Admin: 03/04/21 06:26 Dose: 40 mg Documented by: Potassium Chloride (Potassium Chloride 20 Meq Tab.Er) 40 meq PO BEDTIME [facility] Last Admin: 03/03/21 21:52 Dose: 40 meq Documented by: Rivaroxaban (Rivaroxaban 10 Mg Tab) 20 mg PO DAILY [facility] Last Admin: 03/04/21 08:22 Dose: 20 mg Documented by: Sodium Chloride (Sodium Chloride 0.9% 10 Ml Syringe) 10 ml FLUSH ASDIRECTED PRN PRN Reason: Keep Vein Open Last Admin: 03/02/21 09:05 Dose: 10 ml Documented by: Thiamine HCl (Thiamine 100 Mg Tab) 100 mg PO DAILY [facility] Last Admin: 03/04/21 08:21 Dose: 100 mg Documented by: Vancomycin HCl (Pharmacy To Dose - Vancomycin) 0 dose .XX ASDIRECTED PRN PRN Reason: RX TO DOSE VANCOMYCIN Discontinued Medications Diatrizoate Meglum/Diatrizoate Sod (Diatrizoate Meglumine/Diatrizoate Sodium 37% 120 Ml Bottle) 120 ml PO ONETIME ONE Stop: 03/02/21 08:53 Last Admin: 03/02/21 09:04 Dose: Not Given Documented by: Diltiazem HCl (Diltiazem 50 Mg/10 Ml Sdv) 10 mg IVPUSH ONETIME ONE Stop: 02/26/21 14:22 Last Admin: 02/26/21 14:27 Dose: 10 mg Documented by: Diltiazem HCl (Diltiazem 50 Mg/10 Ml Sdv) 10 mg IVPUSH ONETIME ONE Stop: 02/26/21 15:19 Last Admin: 02/26/21 15:22 Dose: 10 mg Documented by: Diltiazem HCl (Diltiazem 120 Mg Cap.Cd) 360 mg PO DAILY [facility] Diltiazem HCl (Diltiazem 120 Mg Cap.Cd) 120 mg PO DAILY [facility] Last Admin: 03/02/21 12:03 Dose: Not Given Documented by: Diltiazem HCl (Diltiazem Ir 30 Mg Tab) 30 mg PO Q6HR [facility] Last Admin: 03/03/21 11:30 Dose: 30 mg Documented by: Doxycycline Hyclate (Doxycycline 100 Mg Cap) 100 mg PO BID [facility] Last Admin: 03/03/21 09:43 Dose: 100 mg Documented by: Folic Acid (Folic Acid 1 Mg Tab) 1 mg PO DAILY [facility] Stop: 03/01/21 09:01 Last Admin: 03/01/21 08:07 Dose: 1 mg Documented by: Furosemide (Furosemide 40 Mg/4 Ml Vial) 40 mg IVPUSH NOW ONE Stop: 03/01/21 09:14 Last Admin: 03/01/21 09:33 Dose: 40 mg Documented by: Furosemide (Furosemide 20 Mg/2 Ml Vial) 20 mg IVPUSH 0600,1800 [facility] Gabapentin (Gabapentin 300 Mg Cap) 300 mg PO ONETIME ONE Stop: 03/01/21 09:13 Last Admin: 03/01/21 09:33 Dose: 300 mg Documented by: Hydromorphone HCl (Hydromorphone 0.5 Mg/0.5 Ml Syringe) 0.5 mg IVPUSH Q2H PRN PRN Reason: Pain (severe 7-10) Last Admin: 03/02/21 00:54 Dose: 0.5 mg Documented by: Sodium Chloride (Normal Saline) 1,000 mls @ 150 mls/hr IV ASDIRECTED [facility] Last Admin: 02/27/21 00:46 Dose: 150 mls/hr Documented by: Sodium Chloride (Normal Saline) 1,000 mls @ 999 mls/hr IV ONETIME ONE Stop: 02/26/21 13:58 Last Admin: 02/26/21 13:08 Dose: 999 mls/hr Documented by: Diltiazem HCl 100 mg/ Sodium (Chloride) 100 mls @ 5 mls/hr IV TITRATE [facility]; Protocol Last Titration: 02/27/21 00:01 Dose: 0 mg/hr, 0 mls/hr Documented by: Lactated Ringer's (Ringers, Lactated) 1,000 mls @ 500 mls/hr IV .BOLUS ONE Stop: 02/26/21 18:44 Last Admin: 02/26/21 17:23 Dose: 500 mls/hr Documented by: Piperacillin Sod/Tazobactam (Sod 4.5 gm/ Sodium Chloride) 100 mls @ 25 mls/hr IV Q8H [facility] Last Admin: 02/27/21 02:33 Dose: 25 mls/hr Documented by: Magnesium Sulfate/Dextrose 1 (gm/ Premix) 100 mls @ 100 mls/hr IV ONETIME ONE Stop: 02/26/21 17:59 Last Admin: 02/26/21 17:51 Dose: 100 mls/hr Documented by: Piperacillin Sod/Tazobactam (Sod 4.5 gm/ Sodium Chloride) 100 mls @ 200 mls/hr IV ONETIME ONE Stop: 02/26/21 19:29 Piperacillin Sod/Tazobactam (Sod 4.5 gm/ Sodium Chloride) 100 mls @ 200 mls/hr IV ONETIME ONE Stop: 02/26/21 20:29 Last Admin: 02/26/21 20:00 Dose: 200 mls/hr Documented by: Sodium Chloride (Normal Saline) 1,000 mls @ 500 mls/hr IV ASDIRECTED [facility] Stop: 02/26/21 23:06 Last Admin: 02/26/21 21:09 Dose: 500 mls/hr Documented by: Sodium Chloride (Sodium Chloride 0.45%) 1,000 mls @ 100 mls/hr IV ASDIRECTED [facility] Last Admin: 02/28/21 04:08 Dose: 100 mls/hr Documented by: Albumin Human 12.5 gm/ Premix 50 mls @ 50 mls/hr IV ONETIME ONE Stop: 03/01/21 13:59 Last Admin: 03/01/21 14:01 Dose: 50 mls/hr Documented by: Sodium Chloride (Normal Saline) 250 mls @ 250 mls/hr IV ONETIME ONE Stop: 03/01/21 13:59 Last Admin: 03/01/21 14:00 Dose: 250 mls/hr Documented by: Magnesium Sulfate 2 gm/ Premix 50 mls @ 25 mls/hr IV ONETIME ONE Stop: 03/01/21 18:59 Last Admin: 03/01/21 17:09 Dose: 25 mls/hr Documented by: Lactated Ringer's (Ringers, Lactated) 500 mls @ 250 mls/hr IV .BOLUS ONE Stop: 03/01/21 18:47 Last Admin: 03/01/21 17:07 Dose: 250 mls/hr Documented by: Albumin Human 12.5 gm/ Premix 50 mls @ 50 mls/hr IV ONETIME ONE Stop: 03/01/21 21:29 Last Admin: 03/01/21 20:50 Dose: 50 mls/hr Documented by: Magnesium Sulfate/Dextrose 1 (gm/ Premix) 100 mls @ 100 mls/hr IV ONETIME ONE Stop: 03/01/21 21:59 Last Admin: 03/01/21 20:34 Dose: 100 mls/hr Documented by: Sodium Chloride (Normal Saline) 100 mls @ 60 mls/hr IV ASDIRECTED [facility] Stop: 03/02/21 12:00 Last Admin: 03/02/21 09:01 Dose: 60 mls/hr Documented by: Ceftriaxone Sodium 2 gm/ (Sodium Chloride) 100 mls @ 200 mls/hr IV Q24H [facility] Last Admin: 03/02/21 16:15 Dose: 200 mls/hr Documented by: Vancomycin HCl 1.75 gm/ Sodium (Chloride) 500 mls @ 250 mls/hr IV ONETIME ONE Stop: 03/03/21 16:59 Last Admin: 03/03/21 15:11 Dose: 250 mls/hr Documented by: Iopamidol (Iopamidol 755 Mg/Ml 100 Ml Bottle) 100 ml IVPUSH ONETIME ONE Stop: 03/02/21 08:53 Last Admin: 03/02/21 09:02 Dose: 100 ml Documented by: Lorazepam (Lorazepam 2 Mg/Ml Sdv) 1 mg IVPUSH ONETIME ONE Stop: 02/26/21 16:49 Last Admin: 02/26/21 16:52 Dose: 1 mg Documented by: Magnesium Oxide (Magnesium Oxide 400 Mg Tab) 400 mg PO ONETIME ONE Stop: 02/26/21 13:00 Last Admin: 02/26/21 13:19 Dose: 400 mg Documented by: Metoclopramide HCl (Metoclopramide 10 Mg/2 Ml Sdv) 5 mg IVPUSH ONETIME ONE Stop: 02/26/21 11:50 Last Admin: 02/26/21 11:57 Dose: 5 mg Documented by: Metoprolol Tartrate (Metoprolol Tartrate 5 Mg/5 Ml Sdv) 5 mg IVPUSH ONETIME ONE Stop: 02/26/21 11:48 Last Admin: 02/26/21 11:57 Dose: 5 mg Documented by: Metoprolol Tartrate (Metoprolol Tartrate 5 Mg/5 Ml Sdv) 5 mg IVPUSH ONETIME ONE Stop: 02/26/21 12:20 Last Admin: 02/26/21 12:46 Dose: 5 mg Documented by: Metoprolol Tartrate (Metoprolol Tartrate 50 Mg Tab) 75 mg PO BID [facility] Oxycodone HCl (Oxycodone 5 Mg Tab) 5 mg PO Q4H PRN PRN Reason: Pain (moderate 4-6) Last Admin: 02/28/21 09:12 Dose: 5 mg Documented by: Oxycodone HCl (Oxycodone 5 Mg Tab) 10 mg PO Q6H PRN PRN Reason: Pain (moderate 4-6) Last Admin: 03/02/21 03:29 Dose: 10 mg Documented by: Potassium Chloride (Potassium Chloride 20 Meq Tab.Er) 40 meq PO ONETIME ONE Stop: 02/26/21 13:00 Last Admin: 02/26/21 13:11 Dose: 40 meq Documented by: Sodium Chloride (Sodium Chloride 0.9% 10 Ml Sdv) 10 ml FLUSH ONETIME ONE Stop: 03/02/21 08:53 Last Admin: 03/02/21 12:03 Dose: 10 ml Documented by: - Exam Quality Assessment: Supplemental Oxygen General: Alert, Oriented, No Acute Distress HEENT: EOMI, Mucous Membr. Moist/[place] Neck: Supple Lungs: Clear to Auscultation, Normal Respiratory Effort Cardiovascular: Irregular Rhythm, Tachycardia GI/Abdominal Exam: Soft, Non-Tender, No Distention Extremities: Other (2+ bilateral lower extremity edema) Skin: Warm, Dry, Intact Neurological: Normal Speech Psy/Mental Status: Alert, Normal Affect, Normal Mood - Patient Data Lab Results Last 24 hrs: Laboratory Results - last 24 hr 03/03/21 03/03/21 03/03/21 Range/Units 10:41 14:02 14:33 WBC (4.23-9.07) K/mm3 RBC (4.63-6.08) M/mm3 Hgb (13.7-17.5) gm/dl Hct (40.1-51.0) % MCV (79.0-92.2) fl MCH (25.7-32.2) pg MCHC (32.2-35.5) g/dl RDW Std Deviation (35.1-43.9) fL Plt Count (163-337) K/mm3 MPV (9.4-12.3) fl Sodium (136-145) mEq/L Potassium (3.5-5.1) mEq/L Chloride (98-107) mEq/L Carbon Dioxide (21-32) mEq/L Anion Gap (5-15) BUN (7-18) mg/dL Creatinine (0.7-1.3) mg/dL Est Cr Clr Drug Dosing mL/min Estimated GFR (MDRD) (>60) mL/min BUN/Creatinine Ratio (14-18) Glucose (70-99) mg/dL POC Glucose 112 H (70-99) mg/dL Lactic Acid 0.9 (0.4-2.0) mmol/L Calcium (8.5-10.1) mg/dL Urine Color Yellow (Yellow) Urine Appearance Clear (Clear) Urine pH 6.0 (5.0-8.0) Ur Specific [place] 1.025 (1.005-1.030) Urine Protein 1+ H (Negative) Urine Glucose (UA) Negative (Negative) Urine Ketones Trace H (Negative) Urine Occult Blood 3+ H (Negative) Urine Nitrite Negative (Negative) Urine Bilirubin 2+ H (Negative) Urine Urobilinogen 2.0 H (0.2-1.0) Ur Leukocyte Esterase Negative (Negative) Urine RBC 10-20 H (0-5) /hpf Urine WBC 0-5 (0-5) /hpf Ur Squamous Epith Cells 0-5 (0-5) /hpf Urine Bacteria Few (FEW) /hpf Urine Mucus Few (FEW) /hpf 03/03/21 03/03/21 03/04/21 Range/Units 16:45 22:10 05:40 WBC 8.01 (4.23-9.07) K/mm3 RBC 3.21 L (4.63-6.08) M/mm3 Hgb 9.2 L (13.7-17.5) gm/dl Hct 28.9 L (40.1-51.0) % MCV 90.0 (79.0-92.2) fl MCH 28.7 (25.7-32.2) pg MCHC 31.8 L (32.2-35.5) g/dl RDW Std Deviation 49.8 H (35.1-43.9) fL Plt Count 116 L (163-337) K/mm3 MPV 9.9 (9.4-12.3) fl Sodium (136-145) mEq/L Potassium (3.5-5.1) mEq/L Chloride (98-107) mEq/L Carbon Dioxide (21-32) mEq/L Anion Gap (5-15) BUN (7-18) mg/dL Creatinine (0.7-1.3) mg/dL Est Cr Clr Drug Dosing mL/min Estimated GFR (MDRD) (>60) mL/min BUN/Creatinine Ratio (14-18) Glucose (70-99) mg/dL POC Glucose 108 H 142 H (70-99) mg/dL Lactic Acid (0.4-2.0) mmol/L Calcium (8.5-10.1) mg/dL Urine Color (Yellow) Urine Appearance (Clear) Urine pH (5.0-8.0) Ur Specific [place] (1.005-1.030) Urine Protein (Negative) Urine Glucose (UA) (Negative) Urine Ketones (Negative) Urine Occult Blood (Negative) Urine Nitrite (Negative) Urine Bilirubin (Negative) Urine Urobilinogen (0.2-1.0) Ur Leukocyte Esterase (Negative) Urine RBC (0-5) /hpf Urine WBC (0-5) /hpf Ur Squamous Epith Cells (0-5) /hpf Urine Bacteria (FEW) /hpf Urine Mucus (FEW) /hpf 03/04/21 03/04/21 Range/Units 05:40 06:34 WBC (4.23-9.07) K/mm3 RBC (4.63-6.08) M/mm3 Hgb (13.7-17.5) gm/dl Hct (40.1-51.0) % MCV (79.0-92.2) fl MCH (25.7-32.2) pg MCHC (32.2-35.5) g/dl RDW Std Deviation (35.1-43.9) fL Plt Count (163-337) K/mm3 MPV (9.4-12.3) fl Sodium 141 (136-145) mEq/L Potassium 4.5 (3.5-5.1) mEq/L Chloride 105 (98-107) mEq/L Carbon Dioxide 25 (21-32) mEq/L Anion Gap 15.5 H (5-15) BUN 10 (7-18) mg/dL Creatinine 0.8 (0.7-1.3) mg/dL Est Cr Clr Drug Dosing 93.81 mL/min Estimated GFR (MDRD) > 60 (>60) mL/min BUN/Creatinine Ratio 12.5 L (14-18) Glucose 95 (70-99) mg/dL POC Glucose 91 (70-99) mg/dL Lactic Acid (0.4-2.0) mmol/L Calcium 8.4 L (8.5-10.1) mg/dL Urine Color (Yellow) Urine Appearance (Clear) Urine pH (5.0-8.0) Ur Specific [place] (1.005-1.030) Urine Protein (Negative) Urine Glucose (UA) (Negative) Urine Ketones (Negative) Urine Occult Blood (Negative) Urine Nitrite (Negative) Urine Bilirubin (Negative) Urine Urobilinogen (0.2-1.0) Ur Leukocyte Esterase (Negative) Urine RBC (0-5) /hpf Urine WBC (0-5) /hpf Ur Squamous Epith Cells (0-5) /hpf Urine Bacteria (FEW) /hpf Urine Mucus (FEW) /hpf Result Diagrams: 03/04/21 05:40 03/04/21 05:40 Imaging Impressions Last 24 hrs: Echo 1. LVH 2. Moderate global hypokinesis of the LV with EF 40-45% 3. Severely dilated left atrium 4. Mild MVR 5. Mild TVR 6. RV systolic pressure elevated at 40.5 Sepsis Event Note - Evaluation Sepsis Screening Result: No Definite Risk - Focused Exam Vital Signs: Vital Signs Temp Pulse Resp BP Pulse Ox Pulse Ox 03/04/21 08:21 120 H 123/75 03/04/21 07:16 99.9 F 120 H 16 123/75 91 L 03/04/21 06:12 91 L 03/04/21 04:18 99.1 F 97 16 119/78 92 L 03/03/21 23:59 99.3 F 03/03/21 23:58 100.2 F 105 H 20 97/72 92 L 03/03/21 21:52 129 H 124/81 03/03/21 21:50 98.8 F 03/03/21 21:49 129 H 124/81 93 L 03/03/21 20:57 125 H 92 L 03/03/21 20:50 101.1 F H 133 H 18 107/81 76 L - Problem List Review Problem List Initiated/Reviewed/Updated: Yes - My Orders Last 24 Hours: My Active Orders 03/03/21 11:00 Gabapentin [Neurontin] 300 mg PO DAILY 03/03/21 12:15 RT Chest Physiotherapy [RC] ASDIRECTED 03/03/21 12:16 Incentive Breathing [RT Incentive Spirometry] [RC] ASDIRECTED 03/03/21 14:00 Pharmacy to Dose - Vancomycin 0 dose .XX ASDIRECTED PRN 03/03/21 14:03 Notify Provider Vital Signs [RC] ASDIRECTED 03/03/21 14:25 BLOOD CULTURE [MREF] Routine 03/03/21 14:30 Piperacillin/Tazobactam [Piperacil-Tazobact] 4.5 gm Sodium Chloride 0.9% [Normal Saline] 100 ml IV Q8H 03/03/21 14:33 BLOOD CULTURE [MREF] Routine 03/03/21 23:44 Magnesium Hydroxide [Milk of Magnesia] 30 ml PO DAILY PRN 03/04/21 03:00 Vancomycin 1 gm Vancomycin 500 mg Sodium Chloride 0.9% [Normal Saline] 500 ml IV Q12H 03/04/21 12:00 Venous Doppler Lwr Ext Bi [US] Routine 03/05/21 02:00 VANCOMYCIN TROUGH [CHEM] Timed 03/05/21 06:00 BASIC METABOLIC PANEL,BMP [CHEM] DAILY - Plan Plan:: This is a 60M with past medical history Diastolic CHF, Type II DM, Alcoholism, Afib (on xarelto/metoprolol/diltiazem) presenting for evaluation of afib w/rvr 1. Afib w/RVR; RVR improving as withdrawal symptoms decrease 2. SIRS syndrome; r/o sepsis; tachycardia; leukocytosis; lactic acidosis; sepsis ruled out 3. acute systolic CHF exacerbation; EF mildly reduced 40-45%; unable to diurese due to hypotension; presumed infection; 4. Hx of alcoholism 5. Hx of chronic left hip pain 6. Hx of Type II DM with peripheral neuropathy 7. Obesity 8. Suspected ABRAHAN 9. Alcohol withdrawal syndrome 10. hypomagnesemia 11. Possible PNA; CT PE study negative for PE but possible infiltrate; started on doxycycline and ceftriaxone on03/02; broadened to vancomycin and zosyn on 03/03 Plan -serial lactate completed -blood cx NGTD -empiric zosyn stopped; started on doxycycline and ceftriaxone on03/02 for possible PNA; broadened to vancomycin and zosyn on 03/03 due to fever+WBC -hold metformin -increased metoprolol to 100 mg BID 02/27 -started amiodarone 200 mg BID per cardiology outpatient recs -diltiazem start 30 mg q6h QID 03/02 for rate control->discontinued due to concerns for sepsis and episodic hypotension -tele -monitor I&O -CT left hip results showing avascular necrosis of hip; 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 LVH 2. Moderate global hypokinesis of the LV with EF 40-45% 3. Severely dilated left atrium 4. Mild MVR 5. Mild TVR 6. RV systolic pressure elevated at 40.5 -anticipate will need diuresis once HR and BP stabilize as withdrawal symptoms improve -oxygen requirements trending down to 2 liters -Venous doppler US ordered today 03/04 Code-Full code DVT ppx-xarelto Dispo-TBD likely will need short term rehab; anticipated discharge early next week to short term rehab
--- NOTE | 2021-03-04 12:32 | CONS ---
CONSULTING PHYSICIAN: Dieter Cordova MD DATE OF CONSULTATION: 03/04/2021 HISTORY OF PRESENT ILLNESS: This is a 60-year-old gentleman with many medical complications who is being admitted by the hospitalist for chronic heart failure. The patient subsequently is having significant left hip pain. This is longstanding. He has seen orthopedic surgeon including Dr. Gillis for it in the past. He states Dr. Gillis stated he would not do a steroid injection but some sort of other injection. The patient does not remember what type of injection it was. He has had significant hip pain for many years. He denies any new injuries, just that he has pain with ambulation. It does affect his ability to ambulate long distances. OBJECTIVE: The patient does have significant antalgic gait. He has pain with rotation of left hip. Otherwise, he is neurovascularly intact. IMAGING: Radiographs: CT scan of the left hip shows avascular necrosis with osteoarthritic change and subchondral sclerosis and cyst formation in the acetabulum and femur. 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 PLAN: The patient and I did discuss at this point secondary to his chronic medical conditions, I would recommend trying an intra-articular hip injection first. We will plan on scheduling the patient for an outpatient intra-articular left hip injection under fluoroscopy with me in the near future as I would do those Tuesdays at noon on Fridays at noon. The patient at this time is in agreement with this plan. He can be weightbearing as tolerated with probable ambulatory assist device such as a walker until that time. MMODAL /[id number]
--- NOTE | 2021-03-04 12:49 | US ---
Bilateral lower extremity deep venous ultrasound: Duplex and color Doppler evaluation was obtained of the right and left common femoral, proximal greater saphenous, superficial femoral, popliteal, posterior tibial and peroneal veins. Findings: Peroneal veins are not optimally seen on both sides as compared to other veins. Normal phasic flow, augmentation and compression is otherwise seen. Impression: 1. Suboptimally seen peroneal veins on both sides. 2. No findings of deep venous thrombosis is seen within either the right or left lower extremities. Diagnostic code #2
[2021-03-04] MEDS: oxyCODONE 5 MG Tab PO PRN ×2 (17:44→21:45)
[2021-03-04] MEDS: Gabapentin 600 MG Tab PO SCH (20:51)
[2021-03-04] MEDS: Potassium Chloride 20 MEQ Tab.ER PO SCH (20:51)
[2021-03-04] MEDS: Melatonin 3 MG Tab PO PRN (22:16)
[2021-03-04] MEDS: HYDROmorphone 0.5 MG/0.5 ML Syringe IVPUSH PRN (22:17)
[2021-03-05] MEDS: Vancomycin 1 GM, Vancomycin 500 MG in Sodium Chloride 0.9% 500 ML IV SCH (02:49)
[2021-03-05] MEDS: Magnesium Hydroxide 400 MG/5 ML Susp 30 ML Cup PO PRN (02:51)
[2021-03-05] MEDS: oxyCODONE 5 MG Tab PO PRN ×4 (02:51→23:24)
[2021-03-05] MEDS: LORazepam 1 MG Tab PO SCH ×3 (03:25→17:16)
[2021-03-05] MEDS: Piperacillin/Tazobactam 4.5 GM in Sodium Chloride 0.9% 100 ML IV SCH (06:11)
[2021-03-05] MEDS: Pantoprazole 40 MG Tab.CR PO SCH (06:11)
[2021-03-05] MEDS: Insulin Lispro 100 UNIT/ML 10 ML Vial SUBCUT SCH ×4 (06:30→22:13)
[2021-03-05] MEDS: Acetaminophen 325 MG Tab PO PRN (07:37)
[2021-03-05] MEDS ORDERED: Magnesium Sulfate/Water 2 GM in Premix Bag 1 BAG IV ONE (08:07)
[2021-03-05] MEDS ORDERED: Furosemide 40 MG/4 ML VIAL IVPUSH ONE ×2 (08:08→19:03)
[2021-03-05] MEDS: Rivaroxaban 10 MG Tab PO SCH ×2 (08:44→08:47)
[2021-03-05] MEDS: Thiamine 100 MG Tab PO SCH (08:45)
[2021-03-05] MEDS: Amiodarone 200 MG Tab PO SCH ×2 (08:45→20:02)
[2021-03-05] MEDS: Metoprolol Tartrate 100 MG Tab PO SCH ×2 (08:45→20:02)
[2021-03-05] MEDS ORDERED: Rivaroxaban 10 MG Tab PO SCH (09:00)
[2021-03-05] MEDS: Gabapentin 300 MG Cap PO SCH (09:15)
[2021-03-05] MEDS: Amoxicillin/Clavulanate K 875-125 MG Tab PO SCH ×2 (10:59→20:02)
[2021-03-05] MEDS ORDERED: Vancomycin 1.75 GM in Sodium Chloride 0.9% 500 ML IV SCH (15:00)
--- NOTE | 2021-03-05 15:29 | PCM.PN ---
- General Info Date of Service: 03/05/21 Subjective Update: 03/05/21 afebrile/irritable / vss voided x 1 last night /increased lasix this am and arthur better . p.e. tired /little weak/loose prod. cough//wheezy with talking. skin:mild pallor. lungs cough and wheeze noted bibasiler cor telemetry 120-145 while in chair . stable lbb afib . irreg reg 2/6 syst. murmur at rt 2nd ics. mod jvd. abd benign. appetite better. liver and spleen not appreciated no ascites felt. ms stable oa changes. gouty deposits dips and pips neuro aox 4 quintero/ able to sit up lab hgn low 8.2 and k stable creat 1.0 to 1.4 crp and repeat pending. chest xray fibrosis/copd and diffuse infiltrate suggests pneumonia ct scan lesion rt lower lobe small/ fibrosis/ infiltrates/copd and fibrosis assess 1//// pneumonia on day 3 antibiotics and some interval improvement. switch to p.o antibiotics anticipated. 2/// copd stable but severe. fibrosis and lesion on ct scan with hilar adenopathy which will need follow up c.t 3/// afib rvr amioderone /diltizem/ metoprolol all high dose. will monitor after am lasix . 4/// etohism. patient has not delt with this and has dx of Wernicke encephalopathy . disease/early dementia . needs to abstain form etoh totally sec now to afib but also with other complications. care issues abound . walked away from [facility] and now wants to return. [facility] placement pending acceptance. ciwa low and on low dose antidepressant and benzodiazepam. 5/// because of rt hip issues and copd and chronic etohism he cannot attend etoh rehab but seems ready to give up etoh with assistance. wants to try livetrol 6/// anemia check hemmoccults and follow up . on anticoagulant / check iron levels . thrombocytopenia platlets low and recheck pending . ? occult bleeding . 8// k now replaced. mag now replaced. self cares unable and unlikely to change rapidly. 9///blood sugars increased ? pre or dm2 . hip injection as o.p . wean to oral antibiotics and room air and p.o meds . sniff placemnt being arranged. boh Functional Status: Reports: Pain Controlled, Tolerating Diet, Urinating - Review of Systems General: Reports: No Symptoms HEENT: Reports: No Symptoms Pulmonary: Reports: No Symptoms, Shortness of Breath, Cough, Wheezing Cardiovascular: Reports: No Symptoms, Palpitations, Other (tachicardia / rvr) Gastrointestinal: Reports: No Symptoms Genitourinary: Reports: No Symptoms Musculoskeletal: Reports: No Symptoms Skin: Reports: No Symptoms Neurological: Reports: No Symptoms Psychiatric: Reports: No Symptoms - Patient Data Vitals - Most Recent: Last Vital Signs Temp 36.3 C 03/05/21 12:35 Pulse 123 H 03/05/21 08:45 Resp 16 03/05/21 12:35 BP 107/81 03/05/21 12:35 Pulse Ox 92 L 03/05/21 12:35 Weight - Most Recent: 115.167 kg I&O - Last 24 Hours: Intake & Output 03/05/21 03/05/21 03/05/21 06:59 14:59 22:59 Intake Total 1500 Output Total 300 900 Balance 1200 -900 Lab Results Last 24 Hours: Laboratory Results - last 24 hr 03/04/21 03/04/21 03/05/21 Range/Units 17:30 20:57 02:05 WBC (4.23-9.07) K/mm3 RBC (4.63-6.08) M/mm3 Hgb (13.7-17.5) gm/dl Hct (40.1-51.0) % MCV (79.0-92.2) fl MCH (25.7-32.2) pg MCHC (32.2-35.5) g/dl RDW Std Deviation (35.1-43.9) fL Plt Count (163-337) K/mm3 MPV (9.4-12.3) fl Sodium (136-145) mEq/L Potassium (3.5-5.1) mEq/L Chloride (98-107) mEq/L Carbon Dioxide (21-32) mEq/L Anion Gap (5-15) BUN (7-18) mg/dL Creatinine (0.7-1.3) mg/dL Est Cr Clr Drug Dosing mL/min Estimated GFR (MDRD) (>60) mL/min BUN/Creatinine Ratio (14-18) Glucose (70-99) mg/dL POC Glucose 94 133 H (70-99) mg/dL Calcium (8.5-10.1) mg/dL Magnesium (1.8-2.4) mg/dL Vancomycin Trough 10.8 (10.0-20.0) 03/05/21 03/05/21 03/05/21 Range/Units 05:38 05:40 05:40 WBC 7.74 (4.23-9.07) K/mm3 RBC 2.89 L (4.63-6.08) M/mm3 Hgb 8.2 L (13.7-17.5) gm/dl Hct 26.4 L (40.1-51.0) % MCV 91.3 (79.0-92.2) fl MCH 28.4 (25.7-32.2) pg MCHC 31.1 L (32.2-35.5) g/dl RDW Std Deviation 49.0 H (35.1-43.9) fL Plt Count 133 L (163-337) K/mm3 MPV 9.1 L (9.4-12.3) fl Sodium 143 (136-145) mEq/L Potassium 4.3 (3.5-5.1) mEq/L Chloride 107 (98-107) mEq/L Carbon Dioxide 29 (21-32) mEq/L Anion Gap 11.3 (5-15) BUN 6 L (7-18) mg/dL Creatinine 0.7 (0.7-1.3) mg/dL Est Cr Clr Drug Dosing 107.21 mL/min Estimated GFR (MDRD) > 60 (>60) mL/min BUN/Creatinine Ratio 8.6 L (14-18) Glucose 106 H (70-99) mg/dL POC Glucose 98 (70-99) mg/dL Calcium 8.2 L (8.5-10.1) mg/dL Magnesium (1.8-2.4) mg/dL Vancomycin Trough (10.0-20.0) 03/05/21 03/05/21 Range/Units 05:40 11:55 WBC (4.23-9.07) K/mm3 RBC (4.63-6.08) M/mm3 Hgb (13.7-17.5) gm/dl Hct (40.1-51.0) % MCV (79.0-92.2) fl MCH (25.7-32.2) pg MCHC (32.2-35.5) g/dl RDW Std Deviation (35.1-43.9) fL Plt Count (163-337) K/mm3 MPV (9.4-12.3) fl Sodium (136-145) mEq/L Potassium (3.5-5.1) mEq/L Chloride (98-107) mEq/L Carbon Dioxide (21-32) mEq/L Anion Gap (5-15) BUN (7-18) mg/dL Creatinine (0.7-1.3) mg/dL Est Cr Clr Drug Dosing mL/min Estimated GFR (MDRD) (>60) mL/min BUN/Creatinine Ratio (14-18) Glucose (70-99) mg/dL POC Glucose 123 H (70-99) mg/dL Calcium (8.5-10.1) mg/dL Magnesium 1.8 (1.8-2.4) mg/dL Vancomycin Trough (10.0-20.0) Nelson Results Last 24 Hours: Microbiology 03/03/21 14:33 Blood Culture - Preliminary Blood - Venous 03/03/21 14:25 Blood Culture - Preliminary Blood - Venous - Lab Draw 02/26/21 18:15 Blood Culture - Final Blood - Venous - Lab Draw 02/26/21 18:09 Blood Culture - Final Blood - Venous Med Orders - Current: Current Medications Acetaminophen (Acetaminophen 325 Mg Tab) 650 mg PO Q4H PRN PRN Reason: Pain (Mild 1-3)/fever Last Admin: 03/05/21 07:37 Dose: 650 mg Documented by: Amiodarone HCl (Amiodarone 200 Mg Tab) 200 mg PO BID [facility] Last Admin: 03/05/21 08:45 Dose: 200 mg Documented by: Amoxicillin/Clavulanate Potassium (Amoxicillin/Clavulanate K 875-125 Mg Tab) 1 tab PO Q12HR [facility] Stop: 03/10/21 21:01 Last Admin: 03/05/21 10:59 Dose: 1 tab Documented by: Gabapentin (Gabapentin 600 Mg Tab) 600 mg PO BEDTIME [facility] Last Admin: 03/04/21 20:51 Dose: 600 mg Documented by: Gabapentin (Gabapentin 300 Mg Cap) 300 mg PO DAILY [facility] Last Admin: 03/05/21 09:15 Dose: 300 mg Documented by: Hydromorphone HCl (Hydromorphone 0.5 Mg/0.5 Ml Syringe) 1 mg IVPUSH Q2H PRN PRN Reason: Pain (severe 7-10) Last Admin: 03/04/21 22:17 Dose: 1 mg Documented by: Insulin Human Lispro (Insulin Lispro 100 Unit/Ml 10 Ml Vial) 0 unit SUBCUT QIDACANDBED [facility]; Protocol Last Admin: 03/05/21 12:16 Dose: Not Given Documented by: Lorazepam (Lorazepam 1 Mg Tab) 1 - 2 mg PO ASDIRECTED [facility]; Protocol Last Admin: 03/05/21 03:25 Dose: 1 mg Documented by: Magnesium Hydroxide (Magnesium Hydroxide 400 Mg/5 Ml Susp 30 Ml Cup) 30 ml PO DAILY PRN PRN Reason: Constipation Last Admin: 03/05/21 02:51 Dose: 30 ml Documented by: Melatonin (Melatonin 3 Mg Tab) 6 mg PO BEDTIME PRN PRN Reason: Sleep Last Admin: 03/04/21 22:16 Dose: 6 mg Documented by: Metoprolol Tartrate (Metoprolol Tartrate 100 Mg Tab) 100 mg PO BID [facility] Last Admin: 03/05/21 08:45 Dose: 100 mg Documented by: Metoprolol Tartrate (Metoprolol Tartrate 5 Mg/5 Ml Sdv) 5 mg IVPUSH Q6H PRN PRN Reason: Arrhythmia Ondansetron HCl (Ondansetron 4 Mg/2 Ml Sdv) 4 mg IV Q4H PRN PRN Reason: Nausea/Vomiting Last Admin: 02/28/21 10:08 Dose: 4 mg Documented by: Oxycodone HCl (Oxycodone 5 Mg Tab) 10 mg PO Q4H PRN PRN Reason: Pain (moderate 4-6) Last Admin: 03/05/21 10:59 Dose: 10 mg Documented by: Pantoprazole Sodium (Pantoprazole 40 Mg Tab.Cr) 40 mg PO ACBREAKFAST [facility] Last Admin: 03/05/21 06:11 Dose: 40 mg Documented by: Potassium Chloride (Potassium Chloride 20 Meq Tab.Er) 40 meq PO BEDTIME [facility] Last Admin: 03/04/21 20:51 Dose: 40 meq Documented by: Rivaroxaban (Rivaroxaban 10 Mg Tab) 20 mg PO DAILY [facility] Last Admin: 03/05/21 08:47 Dose: 20 mg Documented by: Sodium Chloride (Sodium Chloride 0.9% 10 Ml Syringe) 10 ml FLUSH ASDIRECTED PRN PRN Reason: Keep Vein Open Last Admin: 03/02/21 09:05 Dose: 10 ml Documented by: Thiamine HCl (Thiamine 100 Mg Tab) 100 mg PO DAILY [facility] Last Admin: 03/05/21 08:45 Dose: 100 mg Documented by: Vancomycin HCl (Pharmacy To Dose - Vancomycin) 0 dose .XX ASDIRECTED PRN PRN Reason: RX TO DOSE VANCOMYCIN Discontinued Medications Diatrizoate Meglum/Diatrizoate Sod (Diatrizoate Meglumine/Diatrizoate Sodium 37% 120 Ml Bottle) 120 ml PO ONETIME ONE Stop: 03/02/21 08:53 Last Admin: 03/02/21 09:04 Dose: Not Given Documented by: Diltiazem HCl (Diltiazem 50 Mg/10 Ml Sdv) 10 mg IVPUSH ONETIME ONE Stop: 02/26/21 14:22 Last Admin: 02/26/21 14:27 Dose: 10 mg Documented by: Diltiazem HCl (Diltiazem 50 Mg/10 Ml Sdv) 10 mg IVPUSH ONETIME ONE Stop: 02/26/21 15:19 Last Admin: 02/26/21 15:22 Dose: 10 mg Documented by: Diltiazem HCl (Diltiazem 120 Mg Cap.Cd) 360 mg PO DAILY [facility] Diltiazem HCl (Diltiazem 120 Mg Cap.Cd) 120 mg PO DAILY [facility] Last Admin: 03/02/21 12:03 Dose: Not Given Documented by: Diltiazem HCl (Diltiazem Ir 30 Mg Tab) 30 mg PO Q6HR [facility] Last Admin: 03/03/21 11:30 Dose: 30 mg Documented by: Doxycycline Hyclate (Doxycycline 100 Mg Cap) 100 mg PO BID [facility] Last Admin: 03/03/21 09:43 Dose: 100 mg Documented by: Folic Acid (Folic Acid 1 Mg Tab) 1 mg PO DAILY [facility] Stop: 03/01/21 09:01 Last Admin: 03/01/21 08:07 Dose: 1 mg Documented by: Furosemide (Furosemide 40 Mg/4 Ml Vial) 40 mg IVPUSH NOW ONE Stop: 03/01/21 09:14 Last Admin: 03/01/21 09:33 Dose: 40 mg Documented by: Furosemide (Furosemide 20 Mg/2 Ml Vial) 20 mg IVPUSH 0600,1800 [facility] Furosemide (Furosemide 40 Mg/4 Ml Vial) 40 mg IVPUSH NOW ONE Stop: 03/05/21 08:09 Last Admin: 03/05/21 08:46 Dose: 40 mg Documented by: Gabapentin (Gabapentin 300 Mg Cap) 300 mg PO ONETIME ONE Stop: 03/01/21 09:13 Last Admin: 03/01/21 09:33 Dose: 300 mg Documented by: Hydromorphone HCl (Hydromorphone 0.5 Mg/0.5 Ml Syringe) 0.5 mg IVPUSH Q2H PRN PRN Reason: Pain (severe 7-10) Last Admin: 03/02/21 00:54 Dose: 0.5 mg Documented by: Sodium Chloride (Normal Saline) 1,000 mls @ 150 mls/hr IV ASDIRECTED [facility] Last Admin: 02/27/21 00:46 Dose: 150 mls/hr Documented by: Sodium Chloride (Normal Saline) 1,000 mls @ 999 mls/hr IV ONETIME ONE Stop: 02/26/21 13:58 Last Admin: 02/26/21 13:08 Dose: 999 mls/hr Documented by: Diltiazem HCl 100 mg/ Sodium (Chloride) 100 mls @ 5 mls/hr IV TITRATE [facility]; Protocol Last Titration: 02/27/21 00:01 Dose: 0 mg/hr, 0 mls/hr Documented by: Lactated Ringer's (Ringers, Lactated) 1,000 mls @ 500 mls/hr IV .BOLUS ONE Stop: 02/26/21 18:44 Last Admin: 02/26/21 17:23 Dose: 500 mls/hr Documented by: Piperacillin Sod/Tazobactam (Sod 4.5 gm/ Sodium Chloride) 100 mls @ 25 mls/hr IV Q8H [facility] Last Admin: 02/27/21 02:33 Dose: 25 mls/hr Documented by: Magnesium Sulfate/Dextrose 1 (gm/ Premix) 100 mls @ 100 mls/hr IV ONETIME ONE Stop: 02/26/21 17:59 Last Admin: 02/26/21 17:51 Dose: 100 mls/hr Documented by: Piperacillin Sod/Tazobactam (Sod 4.5 gm/ Sodium Chloride) 100 mls @ 200 mls/hr IV ONETIME ONE Stop: 02/26/21 19:29 Piperacillin Sod/Tazobactam (Sod 4.5 gm/ Sodium Chloride) 100 mls @ 200 mls/hr IV ONETIME ONE Stop: 02/26/21 20:29 Last Admin: 02/26/21 20:00 Dose: 200 mls/hr Documented by: Sodium Chloride (Normal Saline) 1,000 mls @ 500 mls/hr IV ASDIRECTED [facility] Stop: 02/26/21 23:06 Last Admin: 02/26/21 21:09 Dose: 500 mls/hr Documented by: Sodium Chloride (Sodium Chloride 0.45%) 1,000 mls @ 100 mls/hr IV ASDIRECTED [facility] Last Admin: 02/28/21 04:08 Dose: 100 mls/hr Documented by: Albumin Human 12.5 gm/ Premix 50 mls @ 50 mls/hr IV ONETIME ONE Stop: 03/01/21 13:59 Last Admin: 03/01/21 14:01 Dose: 50 mls/hr Documented by: Sodium Chloride (Normal Saline) 250 mls @ 250 mls/hr IV ONETIME ONE Stop: 03/01/21 13:59 Last Admin: 03/01/21 14:00 Dose: 250 mls/hr Documented by: Magnesium Sulfate 2 gm/ Premix 50 mls @ 25 mls/hr IV ONETIME ONE Stop: 03/01/21 18:59 Last Admin: 03/01/21 17:09 Dose: 25 mls/hr Documented by: Lactated Ringer's (Ringers, Lactated) 500 mls @ 250 mls/hr IV .BOLUS ONE Stop: 03/01/21 18:47 Last Admin: 03/01/21 17:07 Dose: 250 mls/hr Documented by: Albumin Human 12.5 gm/ Premix 50 mls @ 50 mls/hr IV ONETIME ONE Stop: 03/01/21 21:29 Last Admin: 03/01/21 20:50 Dose: 50 mls/hr Documented by: Magnesium Sulfate/Dextrose 1 (gm/ Premix) 100 mls @ 100 mls/hr IV ONETIME ONE Stop: 03/01/21 21:59 Last Admin: 03/01/21 20:34 Dose: 100 mls/hr Documented by: Sodium Chloride (Normal Saline) 100 mls @ 60 mls/hr IV ASDIRECTED [facility] Stop: 03/02/21 12:00 Last Admin: 03/02/21 09:01 Dose: 60 mls/hr Documented by: Ceftriaxone Sodium 2 gm/ (Sodium Chloride) 100 mls @ 200 mls/hr IV Q24H [facility] Last Admin: 03/02/21 16:15 Dose: 200 mls/hr Documented by: Piperacillin Sod/Tazobactam (Sod 4.5 gm/ Sodium Chloride) 100 mls @ 25 mls/hr IV Q8H [facility] Last Admin: 03/05/21 06:11 Dose: 25 mls/hr Documented by: Vancomycin HCl 1.75 gm/ Sodium (Chloride) 500 mls @ 250 mls/hr IV ONETIME ONE Stop: 03/03/21 16:59 Last Admin: 03/03/21 15:11 Dose: 250 mls/hr Documented by: Vancomycin HCl 1 gm/Vancomycin HCl 500 mg/ Sodium Chloride 500 mls @ 250 mls/hr IV Q12H [facility] Stop: 03/05/21 05:00 Last Admin: 03/05/21 02:49 Dose: 250 mls/hr Documented by: Vancomycin HCl 1.75 gm/ Sodium (Chloride) 500 mls @ 250 mls/hr IV Q12H [facility] Magnesium Sulfate 2 gm/ Premix 50 mls @ 25 mls/hr IV ONETIME ONE Stop: 03/05/21 10:06 Last Admin: 03/05/21 09:05 Dose: 25 mls/hr Documented by: Iopamidol (Iopamidol 755 Mg/Ml 100 Ml Bottle) 100 ml IVPUSH ONETIME ONE Stop: 03/02/21 08:53 Last Admin: 03/02/21 09:02 Dose: 100 ml Documented by: Lorazepam (Lorazepam 2 Mg/Ml Sdv) 1 mg IVPUSH ONETIME ONE Stop: 02/26/21 16:49 Last Admin: 02/26/21 16:52 Dose: 1 mg Documented by: Magnesium Oxide (Magnesium Oxide 400 Mg Tab) 400 mg PO ONETIME ONE Stop: 02/26/21 13:00 Last Admin: 02/26/21 13:19 Dose: 400 mg Documented by: Metoclopramide HCl (Metoclopramide 10 Mg/2 Ml Sdv) 5 mg IVPUSH ONETIME ONE Stop: 02/26/21 11:50 Last Admin: 02/26/21 11:57 Dose: 5 mg Documented by: Metoprolol Tartrate (Metoprolol Tartrate 5 Mg/5 Ml Sdv) 5 mg IVPUSH ONETIME ONE Stop: 02/26/21 11:48 Last Admin: 02/26/21 11:57 Dose: 5 mg Documented by: Metoprolol Tartrate (Metoprolol Tartrate 5 Mg/5 Ml Sdv) 5 mg IVPUSH ONETIME ONE Stop: 02/26/21 12:20 Last Admin: 02/26/21 12:46 Dose: 5 mg Documented by: Metoprolol Tartrate (Metoprolol Tartrate 50 Mg Tab) 75 mg PO BID [facility] Oxycodone HCl (Oxycodone 5 Mg Tab) 5 mg PO Q4H PRN PRN Reason: Pain (moderate 4-6) Last Admin: 02/28/21 09:12 Dose: 5 mg Documented by: Oxycodone HCl (Oxycodone 5 Mg Tab) 10 mg PO Q6H PRN PRN Reason: Pain (moderate 4-6) Last Admin: 03/02/21 03:29 Dose: 10 mg Documented by: Potassium Chloride (Potassium Chloride 20 Meq Tab.Er) 40 meq PO ONETIME ONE Stop: 02/26/21 13:00 Last Admin: 02/26/21 13:11 Dose: 40 meq Documented by: Rivaroxaban (Rivaroxaban 10 Mg Tab) 20 mg PO DAILY [facility] Sodium Chloride (Sodium Chloride 0.9% 10 Ml Sdv) 10 ml FLUSH ONETIME ONE Stop: 03/02/21 08:53 Last Admin: 03/02/21 12:03 Dose: 10 ml Documented by: Vancomycin HCl (Pharmacy To Dose - Vancomycin) 0 dose .XX ASDIRECTED PRN PRN Reason: RX TO DOSE VANCOMYCIN - Exam Quality Assessment: Supplemental Oxygen General: Alert, Oriented HEENT: Pupils Equal, Pupils Reactive, EOMI, Mucous Membr. Moist/[place] Neck: Supple Lungs: Decreased Breath Sounds Cardiovascular: Regular Rate, Regular Rhythm, Irregular Rhythm GI/Abdominal Exam: Normal Bowel Sounds, Soft, Non-Tender, No Organomegaly, No Distention, No Abnormal Bruit, No Mass, Pelvis Stable (Male) Exam: No Hernia, Normal Inspection, Normal Prostate, Circumcised Back Exam: Normal Inspection, Full Range of Motion Extremities: Normal Inspection, Normal Range of Motion, Non-Tender, No Pedal Edema, Normal Capillary Refill Skin: Warm, Dry, Intact Wound/Incisions: Healing Well Neurological: No New Focal Deficit Psy/Mental Status: Alert, Normal Affect, Normal Mood - Patient Data Lab Results Last 24 hrs: Laboratory Results - last 24 hr 03/04/21 03/04/21 03/05/21 Range/Units 17:30 20:57 02:05 WBC (4.23-9.07) K/mm3 RBC (4.63-6.08) M/mm3 Hgb (13.7-17.5) gm/dl Hct (40.1-51.0) % MCV (79.0-92.2) fl MCH (25.7-32.2) pg MCHC (32.2-35.5) g/dl RDW Std Deviation (35.1-43.9) fL Plt Count (163-337) K/mm3 MPV (9.4-12.3) fl Sodium (136-145) mEq/L Potassium (3.5-5.1) mEq/L Chloride (98-107) mEq/L Carbon Dioxide (21-32) mEq/L Anion Gap (5-15) BUN (7-18) mg/dL Creatinine (0.7-1.3) mg/dL Est Cr Clr Drug Dosing mL/min Estimated GFR (MDRD) (>60) mL/min BUN/Creatinine Ratio (14-18) Glucose (70-99) mg/dL POC Glucose 94 133 H (70-99) mg/dL Calcium (8.5-10.1) mg/dL Magnesium (1.8-2.4) mg/dL Vancomycin Trough 10.8 (10.0-20.0) 03/05/21 03/05/21 03/05/21 Range/Units 05:38 05:40 05:40 WBC 7.74 (4.23-9.07) K/mm3 RBC 2.89 L (4.63-6.08) M/mm3 Hgb 8.2 L (13.7-17.5) gm/dl Hct 26.4 L (40.1-51.0) % MCV 91.3 (79.0-92.2) fl MCH 28.4 (25.7-32.2) pg MCHC 31.1 L (32.2-35.5) g/dl RDW Std Deviation 49.0 H (35.1-43.9) fL Plt Count 133 L (163-337) K/mm3 MPV 9.1 L (9.4-12.3) fl Sodium 143 (136-145) mEq/L Potassium 4.3 (3.5-5.1) mEq/L Chloride 107 (98-107) mEq/L Carbon Dioxide 29 (21-32) mEq/L Anion Gap 11.3 (5-15) BUN 6 L (7-18) mg/dL Creatinine 0.7 (0.7-1.3) mg/dL Est Cr Clr Drug Dosing 107.21 mL/min Estimated GFR (MDRD) > 60 (>60) mL/min BUN/Creatinine Ratio 8.6 L (14-18) Glucose 106 H (70-99) mg/dL POC Glucose 98 (70-99) mg/dL Calcium 8.2 L (8.5-10.1) mg/dL Magnesium (1.8-2.4) mg/dL Vancomycin Trough (10.0-20.0) 03/05/21 03/05/21 Range/Units 05:40 11:55 WBC (4.23-9.07) K/mm3 RBC (4.63-6.08) M/mm3 Hgb (13.7-17.5) gm/dl Hct (40.1-51.0) % MCV (79.0-92.2) fl MCH (25.7-32.2) pg MCHC (32.2-35.5) g/dl RDW Std Deviation (35.1-43.9) fL Plt Count (163-337) K/mm3 MPV (9.4-12.3) fl Sodium (136-145) mEq/L Potassium (3.5-5.1) mEq/L Chloride (98-107) mEq/L Carbon Dioxide (21-32) mEq/L Anion Gap (5-15) BUN (7-18) mg/dL Creatinine (0.7-1.3) mg/dL Est Cr Clr Drug Dosing mL/min Estimated GFR (MDRD) (>60) mL/min BUN/Creatinine Ratio (14-18) Glucose (70-99) mg/dL POC Glucose 123 H (70-99) mg/dL Calcium (8.5-10.1) mg/dL Magnesium 1.8 (1.8-2.4) mg/dL Vancomycin Trough (10.0-20.0) Result Diagrams: 03/05/21 05:40 03/05/21 05:40 Nelson Results Last 24 hrs: Microbiology 03/03/21 14:33 Blood Culture - Preliminary Blood - Venous 03/03/21 14:25 Blood Culture - Preliminary Blood - Venous - Lab Draw 02/26/21 18:15 Blood Culture - Final Blood - Venous - Lab Draw 02/26/21 18:09 Blood Culture - Final Blood - Venous Sepsis Event Note - Evaluation Sepsis Screening Result: No Definite Risk Current Stage of Sepsis: Ruled Out Reason for Ruling Out Sepsis: pneumonia /afib/etoh Possible Source of Sepsis: Pulmonary - Focused Exam Vital Signs: Vital Signs Temp Pulse Resp BP BP Pulse Ox 03/05/21 12:35 36.3 C 16 107/81 92 L 03/05/21 08:45 123 H 107/81 03/05/21 08:00 36.3 C 16 107/81 03/05/21 04:00 36.8 C 16 131/84 92 L Heart Sounds: Distant Capillary Refill, Detail: Less than/Equal to (</=) 2 Seconds Pulse Description: 2+ Normal Peripheral Pulse Location: Radial Skin Exam (Focused Sepsis): Pale - Bedside Monitoring CVP Measures: Less than 8 Bedside Ultrasound Performed: No Passive Leg Raise/Fluid Bolus: Not Performed (no signs sepsis and switch to po antibiotics) Date Bedside Monitoring was Performed: 03/05/21 Time Bedside Monitoring was Performed: 15:31 - Problem List & Annotations (1) Afib, Atrial fibrillation SNOMED Code(s): 41852633 Code(s): I48.91 - UNSPECIFIED ATRIAL FIBRILLATION Status: Chronic Priority: High Current Visit: Yes Onset Date: ~03/05/21 Annotation/Comment:: rate slowly coming down (2) Alcohol abuse SNOMED Code(s): 50073164 Code(s): F10.10 - ALCOHOL ABUSE, UNCOMPLICATED Status: Chronic Priority: High Current Visit: Yes Onset Date: ~03/05/21 Annotation/Comment:: cannot attend etoh treatment sec to cog impairment andhigh risk of relapse (3) Acute respiratory failure with hypoxemia SNOMED Code(s): 728527032 Code(s): J96.01 - ACUTE RESPIRATORY FAILURE WITH HYPOXIA Status: Acute Priority: Medium Current Visit: No Onset Date: ~03/04/21 Annotation/Comment:: slowly getting better but copd chronic and discussed lung findings enlarged lymph nodes repeat ct scan in 3 months (4) CHF (congestive heart failure) SNOMED Code(s): 69567203 Code(s): I50.9 - HEART FAILURE, UNSPECIFIED Status: Acute Priority: Medium Current Visit: No Onset Date: ~01/31/21 Qualifiers: Heart failure type: right-sided Heart failure chronicity: acute on chronic Qualified Code(s): I50.813 - Acute on chronic right heart failure Annotation/Comment:: lasix needed and still overloaded. cont diuresis,start losartan - Problem List Review Problem List Initiated/Reviewed/Updated: Yes - Assessment Assessment:: 03/05/21 afebrile/irritable / vss voided x 1 last night /increased lasix this am and arthur better . p.e. tired /little weak/loose prod. cough//wheezy with talking. skin:mild pallor. lungs cough and wheeze noted bibasiler cor telemetry 120-145 while in chair . stable lbb afib . irreg reg 2/6 syst. murmur at rt 2nd ics. mod jvd. abd benign. appetite better. liver and spleen not appreciated no ascites felt. ms stable oa changes. gouty deposits dips and pips neuro aox 4 quintero/ able to sit up lab hgn low 8.2 and k stable creat 1.0 to 1.4 crp and repeat pending. chest xray fibrosis/copd and diffuse infiltrate suggests pneumonia ct scan lesion rt lower lobe small/ fibrosis/ infiltrates/copd and fibrosis assess 1//// pneumonia on day 3 antibiotics and some interval improvement. switch to p.o antibiotics anticipated. 2/// copd stable but severe. fibrosis and lesion on ct scan with hilar adenopathy which will need follow up c.t 3/// afib rvr amioderone /diltizem/ metoprolol all high dose. will monitor after am lasix . 4/// etohism. patient has not delt with this and has dx of Wernicke encephalopathy . disease/early dementia . needs to abstain form etoh totally sec now to afib but also with other complications. care issues abound . walked away from [facility] and now wants to return. [facility] placement pending acceptance. ciwa low and on low dose antidepressant and benzodiazepam. 5/// because of rt hip issues and copd and chronic etohism he cannot attend etoh rehab but seems ready to give up etoh with assistance. wants to try livetrol 6/// anemia check hemmoccults and follow up . on anticoagulant / check iron levels . thrombocytopenia platlets low and recheck pending . ? occult bleeding . 8// k now replaced. mag now replaced. self cares unable and unlikely to change rapidly. 9///blood sugars increased ? pre or dm2 . hip injection as o.p . wean to oral antibiotics and room air and p.o meds . sniff placemnt being arranged. boh - Plan Plan:: This is a 60M with past medical history Diastolic CHF, Type II DM, Alcoholism, Afib (on xarelto/metoprolol/diltiazem) presenting for evaluation of afib w/rvr 1. Afib w/RVR; RVR improving as withdrawal symptoms decrease 2. SIRS syndrome; r/o sepsis; tachycardia; leukocytosis; lactic acidosis; sepsis ruled out 3. acute systolic CHF exacerbation; EF mildly reduced 40-45%; unable to diurese due to hypotension; presumed infection; 4. Hx of alcoholism 5. Hx of chronic left hip pain 6. Hx of Type II DM with peripheral neuropathy 7. Obesity 8. Suspected ABRAHAN 9. Alcohol withdrawal syndrome 10. hypomagnesemia 11. Possible PNA; CT PE study negative for PE but possible infiltrate; started on doxycycline and ceftriaxone on03/02; broadened to vancomycin and zosyn on 03/03 Plan -serial lactate completed -blood cx NGTD -empiric zosyn stopped; started on doxycycline and ceftriaxone on03/02 for possible PNA; broadened to vancomycin and zosyn on 03/03 due to fever+WBC -hold metformin -increased metoprolol to 100 mg BID 7/31 -started amiodarone 200 mg BID per cardiology outpatient recs -diltiazem start 30 mg q6h QID 03/02 for rate control->discontinued due to concerns for sepsis and episodic hypotension -tele -monitor I&O -CT left hip results showing avascular necrosis of hip; case discussed with control integration engineer ortho likely will need elective hip replacement; WBAT -Ortho consult 03/04 -pain control -CIWA protocol; monitor for withdrawal symptoms -PT, OT, SW consult Echo completed 03/03 showing 1. LVH 2. Moderate global hypokinesis of the LV with EF 40-45% 3. Severely dilated left atrium 4. Mild MVR 5. Mild TVR 6. RV systolic pressure elevated at 40.5 -anticipate will need diuresis once HR and BP stabilize as withdrawal symptoms improve -oxygen requirements trending down to 2 liters -Venous doppler US ordered today 03/04 Code-Full code DVT ppx-xarelto Dispo-TBD likely will need short term rehab; anticipated discharge early next week to short term rehab 03/05/21 03/05/21 afebrile/irritable / vss voided x 1 last night /increased lasix this am and arthur better . p.e. tired /little weak/loose prod. cough//wheezy with talking. skin:mild pallor. lungs cough and wheeze noted bibasiler cor telemetry 120-145 while in chair . stable lbb afib . irreg reg 2/6 syst. murmur at rt 2nd ics. mod jvd. abd benign. appetite better. liver and spleen not appreciated no ascites felt. ms stable oa changes. gouty deposits dips and pips neuro aox 4 [place]/ able to sit up lab hgn low 8.2 and k stable creat 1.0 to 1.4 crp and repeat pending. ciwa 5-9 range chest xray fibrosis/copd and diffuse infiltrate suggests pneumonia ct scan lesion rt lower lobe small/ fibrosis/ infiltrates/copd and fibrosis assess 1//// pneumonia on day 3 antibiotics and some interval improvement. switch to p.o antibiotics anticipated. 2/// copd stable but severe. fibrosis and lesion on ct scan with hilar adenopathy which will need follow up c.t 3/// afib rvr amioderone /diltizem/ metoprolol all high dose. will monitor after am lasix . 4/// etohism. patient has not delt with this and has dx of Wernicke encephalopathy . disease/early dementia . needs to abstain form etoh totally sec now to afib but also with other complications. care issues abound . walked away from [facility] and now wants to return. [facility] placement pending acceptance. ciwa low and on low dose antidepressant and benzodiazepam. 5/// because of rt hip issues and copd and chronic etohism he cannot attend etoh rehab but seems ready to give up etoh with assistance. wants to try livetrol 6/// anemia check hemmoccults and follow up . on anticoagulant / check iron levels . thrombocytopenia platlets low and recheck pending . ? occult bleeding . 8// k now replaced. mag now replaced. self cares unable and unlikely to change rapidly. 9///blood sugars increased ? pre or dm2 . hip injection as o.p . wean to oral antibiotics and room air and p.o meds . sniff placemnt being arranged. boh
[2021-03-05 16:36] LABS: HEMOGLOBIN A1C 5.2 %
[2021-03-05] MEDS: Sodium Chloride 0.9% 10 ML Syringe FLUSH PRN (19:49)
[2021-03-05] MEDS: Potassium Chloride 20 MEQ Tab.ER PO SCH (20:02)
[2021-03-05] MEDS: Gabapentin 600 MG Tab PO SCH (20:02)
[2021-03-05] MEDS: Melatonin 3 MG Tab PO PRN (20:52)
[2021-03-05] MEDS: HYDROmorphone 0.5 MG/0.5 ML Syringe IVPUSH PRN (20:53)
[2021-03-06] MEDS: Pantoprazole 40 MG Tab.CR PO SCH ×2 (04:48→05:02)
[2021-03-06] MEDS: oxyCODONE 5 MG Tab PO PRN ×4 (04:49→20:31)
[2021-03-06] MEDS: Insulin Lispro 100 UNIT/ML 10 ML Vial SUBCUT SCH ×4 (07:23→21:24)
[2021-03-06] MEDS: Gabapentin 300 MG Cap PO SCH (09:20)
[2021-03-06] MEDS: Thiamine 100 MG Tab PO SCH (09:20)
[2021-03-06] MEDS: Amoxicillin/Clavulanate K 875-125 MG Tab PO SCH ×2 (09:20→20:32)
[2021-03-06] MEDS: Metoprolol Tartrate 100 MG Tab PO SCH ×2 (09:21→20:32)
[2021-03-06] MEDS: Rivaroxaban 10 MG Tab PO SCH (09:21)
[2021-03-06] MEDS: Amiodarone 200 MG Tab PO SCH ×2 (09:21→20:32)
[2021-03-06] MEDS ORDERED: Magnesium Sulfate/Water 2 GM in Premix Bag 1 BAG IV ONE (11:45)
[2021-03-06] MEDS: Formoterol/Mometasone 100-5 MCG 8.8 GM Inhaler IH SCH ×2 (12:07→20:21)
[2021-03-06] MEDS: Digoxin 250 MCG Tab PO SCH ×3 (12:52→20:30)
[2021-03-06] MEDS: Furosemide 40 MG Tab PO SCH (13:02)
--- NOTE | 2021-03-06 15:12 | PCM.PN ---
- General Info Date of Service: 03/06/21 Admission Dx/Problem (Free Text): chf/etoh abuse/afib rvr. Subjective Update: 03/06/21 afebrile vss o2 on 1 liter / heart rate elavateswith any activity even talking. afib 90s at rest. no tachipnea /prod cough. lungs decreased but clear. cor ir /ir 90sno m s3/s4 abd:benign. ms :left foot warmth,pain and redness. increased with flexion of toe. no other joints involved other than degenerative changes. pedal : edema 3 plus bilateral. assess suspected werneiches encephalopathy mild with multiple features/ widthdrawl mild on admission now resolved. -neuro features of forgetting and repeating.speech not too dysarthric but thought process very concrete. -patient has remorse and regrets about life circumstances. -isolation and falling and impairment related to hip pain discussed and he is agreeable to injection of hip and rehab. he is agreeable to abstaining from etoh and wants to try vivatrol and discussed cost may not be covered by v.a. -discussed treatment but cannot participate sec to hip and other issues. discussed copd improving and started laba /steriod inhaler. discussed afib still not rate controlled and consider adding digoxin for further rate control to amioderone/betablocker and diltiazem. -discussed pneumonia and cellulitis both seem to respond to augmentin but checking xrays left foot as red and tender and swollen. -discussed heart failure and afib and need not to cont. etoh. increased heart failure discussed. depression being treated. sec ftt discussed /treat anxiety /depression -joint pain check uric acid and review xray crp and cbc boh Functional Status: Reports: Pain Controlled - Review of Systems General: Reports: Weakness, Fatigue Pulmonary: Reports: Shortness of Breath Cardiovascular: Reports: No Symptoms Gastrointestinal: Reports: No Symptoms Genitourinary: Denies: No Symptoms Musculoskeletal: Reports: Foot Pain, Joint Pain Skin: Reports: No Symptoms, Rash Neurological: Reports: No Symptoms, Confusion, Pre-Existing Deficit, Trouble Speaking, Difficulty Walking, Weakness, Gait Disturbance. Denies: Tremors Psychiatric: Reports: Confusion, Depression, Anxiety. Denies: Hallucinations - Patient Data Vitals - Most Recent: Last Vital Signs Temp 36.9 C 03/06/21 12:00 Pulse 123 H 03/06/21 12:52 Resp 18 03/06/21 12:00 BP 112/83 03/06/21 12:00 Pulse Ox 95 03/06/21 12:09 Weight - Most Recent: 115.757 kg I&O - Last 24 Hours: Intake & Output 03/05/21 03/06/21 03/06/21 22:59 06:59 14:59 Intake Total 1190 1000 240 Output Total 1450 500 850 Balance -260 500 -610 Lab Results Last 24 Hours: Laboratory Results - last 24 hr 03/05/21 03/05/21 03/05/21 Range/Units 05:09 17:41 21:50 WBC (4.23-9.07) K/mm3 RBC (4.63-6.08) M/mm3 Hgb (13.7-17.5) gm/dl Hct (40.1-51.0) % MCV (79.0-92.2) fl MCH (25.7-32.2) pg MCHC (32.2-35.5) g/dl RDW Std Deviation (35.1-43.9) fL Plt Count (163-337) K/mm3 MPV (9.4-12.3) fl Neut % (Auto) (34.0-67.9) % Lymph % (Auto) (21.8-53.1) % Fleming % (Auto) (5.3-12.2) % Eos % (Auto) (0.8-7.0) Baso % (Auto) (0.1-1.2) % Neut # (Auto) (1.78-5.38) K/mm3 Lymph # (Auto) (1.32-3.57) K/mm3 Fleming # (Auto) (0.30-0.82) K/mm3 Eos # (Auto) (0.04-0.54) K/mm3 Baso # (Auto) (0.01-0.08) K/mm3 Sodium (136-145) mEq/L Potassium (3.5-5.1) mEq/L Chloride (98-107) mEq/L Carbon Dioxide (21-32) mEq/L Anion Gap (5-15) BUN (7-18) mg/dL Creatinine (0.7-1.3) mg/dL Est Cr Clr Drug Dosing mL/min Estimated GFR (MDRD) (>60) mL/min BUN/Creatinine Ratio (14-18) Glucose (70-99) mg/dL POC Glucose 122 H 139 H (70-99) mg/dL Hemoglobin A1c 5.2 ( - 5.6) % Calcium (8.5-10.1) mg/dL Magnesium (1.8-2.4) mg/dL Iron (65-175) ug/dL Ferritin (26-388) ng/ml Total Bilirubin (0.2-1.0) mg/dL AST (15-37) U/L ALT (16-63) U/L Alkaline Phosphatase (46-116) U/L C-Reactive Protein (<1.0) mg/dL Total Protein (6.4-8.2) g/dl Albumin (3.4-5.0) g/dl Globulin gm/dL Albumin/Globulin Ratio (1-2) 03/06/21 03/06/21 03/06/21 Range/Units 06:15 06:15 06:15 WBC 7.55 (4.23-9.07) K/mm3 RBC 3.25 L (4.63-6.08) M/mm3 Hgb 9.1 L (13.7-17.5) gm/dl Hct 29.6 L (40.1-51.0) % MCV 91.1 (79.0-92.2) fl MCH 28.0 (25.7-32.2) pg MCHC 30.7 L (32.2-35.5) g/dl RDW Std Deviation 50.5 H (35.1-43.9) fL Plt Count 167 (163-337) K/mm3 MPV 8.9 L (9.4-12.3) fl Neut % (Auto) 61.3 (34.0-67.9) % Lymph % (Auto) 16.8 L (21.8-53.1) % Fleming % (Auto) 14.7 H (5.3-12.2) % Eos % (Auto) 6.4 (0.8-7.0) Baso % (Auto) 0.4 (0.1-1.2) % Neut # (Auto) 4.63 (1.78-5.38) K/mm3 Lymph # (Auto) 1.27 L (1.32-3.57) K/mm3 Fleming # (Auto) 1.11 H (0.30-0.82) K/mm3 Eos # (Auto) 0.48 (0.04-0.54) K/mm3 Baso # (Auto) 0.03 (0.01-0.08) K/mm3 Sodium 142 (136-145) mEq/L Potassium 4.0 (3.5-5.1) mEq/L Chloride 105 (98-107) mEq/L Carbon Dioxide 30 (21-32) mEq/L Anion Gap 11.0 (5-15) BUN 5 L (7-18) mg/dL Creatinine 0.8 (0.7-1.3) mg/dL Est Cr Clr Drug Dosing 93.81 mL/min Estimated GFR (MDRD) > 60 (>60) mL/min BUN/Creatinine Ratio 6.3 L (14-18) Glucose 104 H (70-99) mg/dL POC Glucose (70-99) mg/dL Hemoglobin A1c ( - 5.6) % Calcium 8.8 (8.5-10.1) mg/dL Magnesium 1.8 (1.8-2.4) mg/dL Iron 23 L (65-175) ug/dL Ferritin 153 (26-388) ng/ml Total Bilirubin 0.5 (0.2-1.0) mg/dL AST 19 (15-37) U/L ALT 23 (16-63) U/L Alkaline Phosphatase 44 L (46-116) U/L C-Reactive Protein (<1.0) mg/dL Total Protein 6.1 L (6.4-8.2) g/dl Albumin 2.4 L (3.4-5.0) g/dl Globulin 3.7 gm/dL Albumin/Globulin Ratio 0.7 L (1-2) 03/06/ Range/Units 06:15 WBC (4.23-9.07) K/mm3 RBC (4.63-6.08) M/mm3 Hgb (13.7-17.5) gm/dl Hct (40.1-51.0) % MCV (79.0-92.2) fl MCH (25.7-32.2) pg MCHC (32.2-35.5) g/dl RDW Std Deviation (35.1-43.9) fL Plt Count (163-337) K/mm3 MPV (9.4-12.3) fl Neut % (Auto) (34.0-67.9) % Lymph % (Auto) (21.8-53.1) % Fleming % (Auto) (5.3-12.2) % Eos % (Auto) (0.8-7.0) Baso % (Auto) (0.1-1.2) % Neut # (Auto) (1.78-5.38) K/mm3 Lymph # (Auto) (1.32-3.57) K/mm3 Fleming # (Auto) (0.30-0.82) K/mm3 Eos # (Auto) (0.04-0.54) K/mm3 Baso # (Auto) (0.01-0.08) K/mm3 Sodium (136-145) mEq/L Potassium (3.5-5.1) mEq/L Chloride (98-107) mEq/L Carbon Dioxide (21-32) mEq/L Anion Gap (5-15) BUN (7-18) mg/dL Creatinine (0.7-1.3) mg/dL Est Cr Clr Drug Dosing mL/min Estimated GFR (MDRD) (>60) mL/min BUN/Creatinine Ratio (14-18) Glucose (70-99) mg/dL POC Glucose (70-99) mg/dL Hemoglobin A1c ( - 5.6) % Calcium (8.5-10.1) mg/dL Magnesium (1.8-2.4) mg/dL Iron (65-175) ug/dL Ferritin (26-388) ng/ml Total Bilirubin (0.2-1.0) mg/dL AST (15-37) U/L ALT (16-63) U/L Alkaline Phosphatase (46-116) U/L C-Reactive Protein 7.8 H* (<1.0) mg/dL Total Protein (6.4-8.2) g/dl Albumin (3.4-5.0) g/dl Globulin gm/dL Albumin/Globulin Ratio (1-2) Nelson Results Last 24 Hours: Microbiology 03/03/21 14:33 Blood Culture - Preliminary Blood - Venous 03/03/21 14:25 Blood Culture - Preliminary Blood - Venous - Lab Draw Med Orders - Current: Current Medications Acetaminophen (Acetaminophen 325 Mg Tab) 650 mg PO Q4H PRN PRN Reason: Pain (Mild 1-3)/fever Last Admin: 03/05/21 07:37 Dose: 650 mg Documented by: Amiodarone HCl (Amiodarone 200 Mg Tab) 200 mg PO BID DIAMANTE Last Admin: 03/06/21 09:21 Dose: 200 mg Documented by: Amoxicillin/Clavulanate Potassium (Amoxicillin/Clavulanate K 875-125 Mg Tab) 1 tab PO Q12HR DIAMANTE Stop: 03/10/21 21:01 Last Admin: 03/06/21 09:20 Dose: 1 tab Documented by: Digoxin (Digoxin 250 Mcg Tab) 250 mcg PO Q4H DIAMANTE Stop: 03/06/21 20:00 Last Admin: 03/06/21 12:52 Dose: 250 mcg Documented by: Furosemide (Furosemide 40 Mg Tab) 40 mg PO BIDDIURETIC [facility] Last Admin: 03/06/21 13:02 Dose: 40 mg Documented by: Gabapentin (Gabapentin 600 Mg Tab) 600 mg PO BEDTIME DIAMANTE Last Admin: 03/05/21 20:02 Dose: 600 mg Documented by: Gabapentin (Gabapentin 300 Mg Cap) 300 mg PO DAILY [facility] Last Admin: 03/06/21 09:20 Dose: 300 mg Documented by: Hydromorphone HCl (Hydromorphone 0.5 Mg/0.5 Ml Syringe) 1 mg IVPUSH Q2H PRN PRN Reason: Pain (severe 7-10) Last Admin: 03/05/21 20:53 Dose: 1 mg Documented by: Insulin Human Lispro (Insulin Lispro 100 Unit/Ml 10 Ml Vial) 0 unit SUBCUT QIDACANDBED [facility]; Protocol Last Admin: 03/06/21 13:19 Dose: Not Given Documented by: Lorazepam (Lorazepam 1 Mg Tab) 1 - 2 mg PO ASDIRECTED [facility]; Protocol Last Admin: 03/05/21 17:16 Dose: 1 mg Documented by: Magnesium Hydroxide (Magnesium Hydroxide 400 Mg/5 Ml Susp 30 Ml Cup) 30 ml PO DAILY PRN PRN Reason: Constipation Last Admin: 03/05/21 02:51 Dose: 30 ml Documented by: Melatonin (Melatonin 3 Mg Tab) 6 mg PO BEDTIME PRN PRN Reason: Sleep Last Admin: 03/05/21 20:52 Dose: 6 mg Documented by: Metoprolol Tartrate (Metoprolol Tartrate 100 Mg Tab) 100 mg PO BID [facility] Last Admin: 03/06/21 09:21 Dose: 100 mg Documented by: Metoprolol Tartrate (Metoprolol Tartrate 5 Mg/5 Ml Sdv) 5 mg IVPUSH Q6H PRN PRN Reason: Arrhythmia Mometasone Furoate/Formoterol Fumar (Formoterol/Mometasone 100-5 Mcg 8.8 Gm Inhaler) 2 puff IH BID [facility] Last Admin: 03/06/21 12:07 Dose: 2 puff Documented by: Ondansetron HCl (Ondansetron 4 Mg/2 Ml Sdv) 4 mg IV Q4H PRN PRN Reason: Nausea/Vomiting Last Admin: 02/28/21 10:08 Dose: 4 mg Documented by: Oxycodone HCl (Oxycodone 5 Mg Tab) 10 mg PO Q4H PRN PRN Reason: Pain (moderate 4-6) Last Admin: 03/06/21 14:15 Dose: 10 mg Documented by: Pantoprazole Sodium (Pantoprazole 40 Mg Tab.Cr) 40 mg PO ACBREAKFAST [facility] Last Admin: 03/06/21 05:02 Dose: Not Given Documented by: Potassium Chloride (Potassium Chloride 20 Meq Tab.Er) 40 meq PO BEDTIME [facility] Last Admin: 03/05/21 20:02 Dose: 40 meq Documented by: Rivaroxaban (Rivaroxaban 10 Mg Tab) 20 mg PO DAILY [facility] Last Admin: 03/06/21 09:21 Dose: 20 mg Documented by: Sodium Chloride (Sodium Chloride 0.9% 10 Ml Syringe) 10 ml FLUSH ASDIRECTED PRN PRN Reason: Keep Vein Open Last Admin: 03/05/21 19:49 Dose: 10 ml Documented by: Thiamine HCl (Thiamine 100 Mg Tab) 100 mg PO DAILY [facility] Last Admin: 03/06/21 09:20 Dose: 100 mg Documented by: Vancomycin HCl (Pharmacy To Dose - Vancomycin) 0 dose .XX ASDIRECTED PRN PRN Reason: RX TO DOSE VANCOMYCIN Discontinued Medications Diatrizoate Meglum/Diatrizoate Sod (Diatrizoate Meglumine/Diatrizoate Sodium 37% 120 Ml Bottle) 120 ml PO ONETIME ONE Stop: 03/02/21 08:53 Last Admin: 03/02/21 09:04 Dose: Not Given Documented by: Diltiazem HCl (Diltiazem 50 Mg/10 Ml Sdv) 10 mg IVPUSH ONETIME ONE Stop: 02/26/21 14:22 Last Admin: 02/26/21 14:27 Dose: 10 mg Documented by: Diltiazem HCl (Diltiazem 50 Mg/10 Ml Sdv) 10 mg IVPUSH ONETIME ONE Stop: 02/26/21 15:19 Last Admin: 02/26/21 15:22 Dose: 10 mg Documented by: Diltiazem HCl (Diltiazem 120 Mg Cap.Cd) 360 mg PO DAILY [facility] Diltiazem HCl (Diltiazem 120 Mg Cap.Cd) 120 mg PO DAILY [facility] Last Admin: 03/02/21 12:03 Dose: Not Given Documented by: Diltiazem HCl (Diltiazem Ir 30 Mg Tab) 30 mg PO Q6HR [facility] Last Admin: 03/03/21 11:30 Dose: 30 mg Documented by: Doxycycline Hyclate (Doxycycline 100 Mg Cap) 100 mg PO BID [facility] Last Admin: 03/03/21 09:43 Dose: 100 mg Documented by: Folic Acid (Folic Acid 1 Mg Tab) 1 mg PO DAILY [facility] Stop: 03/01/21 09:01 Last Admin: 03/01/21 08:07 Dose: 1 mg Documented by: Furosemide (Furosemide 40 Mg/4 Ml Vial) 40 mg IVPUSH NOW ONE Stop: 03/01/21 09:14 Last Admin: 03/01/21 09:33 Dose: 40 mg Documented by: Furosemide (Furosemide 20 Mg/2 Ml Vial) 20 mg IVPUSH 0600,1800 [facility] Furosemide (Furosemide 40 Mg/4 Ml Vial) 40 mg IVPUSH NOW ONE Stop: 03/05/21 08:09 Last Admin: 03/05/21 08:46 Dose: 40 mg Documented by: Furosemide (Furosemide 40 Mg/4 Ml Vial) 40 mg IVPUSH NOW ONE Stop: 03/05/21 19:04 Last Admin: 03/05/21 19:49 Dose: 40 mg Documented by: Gabapentin (Gabapentin 300 Mg Cap) 300 mg PO ONETIME ONE Stop: 03/01/21 09:13 Last Admin: 03/01/21 09:33 Dose: 300 mg Documented by: Hydromorphone HCl (Hydromorphone 0.5 Mg/0.5 Ml Syringe) 0.5 mg IVPUSH Q2H PRN PRN Reason: Pain (severe 7-10) Last Admin: 03/02/21 00:54 Dose: 0.5 mg Documented by: Sodium Chloride (Normal Saline) 1,000 mls @ 150 mls/hr IV ASDIRECTED DIAMANTE Last Admin: 02/27/21 00:46 Dose: 150 mls/hr Documented by: Sodium Chloride (Normal Saline) 1,000 mls @ 999 mls/hr IV ONETIME ONE Stop: 02/26/21 13:58 Last Admin: 02/26/21 13:08 Dose: 999 mls/hr Documented by: Diltiazem HCl 100 mg/ Sodium (Chloride) 100 mls @ 5 mls/hr IV TITRATE DIAMANTE; P rotocol Last Titration: 02/27/21 00:01 Dose: 0 mg/hr, 0 mls/hr Documented by: Lactated Ringer's (Ringers, Lactated) 1,000 mls @ 500 mls/hr IV .BOLUS ONE Stop: 02/26/21 18:44 Last Admin: 02/26/21 17:23 Dose: 500 mls/hr Documented by: Piperacillin Sod/Tazobactam (Sod 4.5 gm/ Sodium Chloride) 100 mls @ 25 mls/hr IV Q8H [facility] Last Admin: 02/27/21 02:33 Dose: 25 mls/hr Documented by: Magnesium Sulfate/Dextrose 1 (gm/ Premix) 100 mls @ 100 mls/hr IV ONETIME ONE Stop: 02/26/21 17:59 Last Admin: 02/26/21 17:51 Dose: 100 mls/hr Documented by: Piperacillin Sod/Tazobactam (Sod 4.5 gm/ Sodium Chloride) 100 mls @ 200 mls/hr IV ONETIME ONE Stop: 02/26/21 19:29 Piperacillin Sod/Tazobactam (Sod 4.5 gm/ Sodium Chloride) 100 mls @ 200 mls/hr IV ONETIME ONE Stop: 02/26/21 20:29 Last Admin: 02/26/21 20:00 Dose: 200 mls/hr Documented by: Sodium Chloride (Normal Saline) 1,000 mls @ 500 mls/hr IV ASDIRECTED [facility] Stop: 02/26/21 23:06 Last Admin: 02/26/21 21:09 Dose: 500 mls/hr Documented by: Sodium Chloride (Sodium Chloride 0.45%) 1,000 mls @ 100 mls/hr IV ASDIRECTED [facility] Last Admin: 02/28/21 04:08 Dose: 100 mls/hr Documented by: Albumin Human 12.5 gm/ Premix 50 mls @ 50 mls/hr IV ONETIME ONE Stop: 03/01/21 13:59 Last Admin: 03/01/21 14:01 Dose: 50 mls/hr Documented by: Sodium Chloride (Normal Saline) 250 mls @ 250 mls/hr IV ONETIME ONE Stop: 03/01/21 13:59 Last Admin: 03/01/21 14:00 Dose: 250 mls/hr Documented by: Magnesium Sulfate 2 gm/ Premix 50 mls @ 25 mls/hr IV ONETIME ONE Stop: 03/01/21 18:59 Last Admin: 03/01/21 17:09 Dose: 25 mls/hr Documented by: Lactated Ringer's (Ringers, Lactated) 500 mls @ 250 mls/hr IV .BOLUS ONE Stop: 03/01/21 18:47 Last Admin: 03/01/21 17:07 Dose: 250 mls/hr Documented by: Albumin Human 12.5 gm/ Premix 50 mls @ 50 mls/hr IV ONETIME ONE Stop: 03/01/21 21:29 Last Admin: 03/01/21 20:50 Dose: 50 mls/hr Documented by: Magnesium Sulfate/Dextrose 1 (gm/ Premix) 100 mls @ 100 mls/hr IV ONETIME ONE Stop: 03/01/21 21:59 Last Admin: 03/01/21 20:34 Dose: 100 mls/hr Documented by: Sodium Chloride (Normal Saline) 100 mls @ 60 mls/hr IV ASDIRECTED [facility] Stop: 03/02/21 12:00 Last Admin: 03/02/21 09:01 Dose: 60 mls/hr Documented by: Ceftriaxone Sodium 2 gm/ (Sodium Chloride) 100 mls @ 200 mls/hr IV Q24H [facility] Last Admin: 03/02/21 16:15 Dose: 200 mls/hr Documented by: Piperacillin Sod/Tazobactam (Sod 4.5 gm/ Sodium Chloride) 100 mls @ 25 mls/hr IV Q8H [facility] Last Admin: 03/05/21 06:11 Dose: 25 mls/hr Documented by: Vancomycin HCl 1.75 gm/ Sodium (Chloride) 500 mls @ 250 mls/hr IV ONETIME ONE Stop: 03/03/21 16:59 Last Admin: 03/03/21 15:11 Dose: 250 mls/hr Documented by: Vancomycin HCl 1 gm/Vancomycin HCl 500 mg/ Sodium Chloride 500 mls @ 250 mls/hr IV Q12H [facility] Stop: 03/05/21 05:00 Last Admin: 03/05/21 02:49 Dose: 250 mls/hr Documented by: Vancomycin HCl 1.75 gm/ Sodium (Chloride) 500 mls @ 250 mls/hr IV Q12H [facility] Magnesium Sulfate 2 gm/ Premix 50 mls @ 25 mls/hr IV ONETIME ONE Stop: 03/05/21 10:06 Last Admin: 03/05/21 09:05 Dose: 25 mls/hr Documented by: Magnesium Sulfate 2 gm/ Premix 50 mls @ 25 mls/hr IV ONETIME ONE Stop: 03/06/21 13:44 Last Admin: 03/06/21 12:53 Dose: 25 mls/hr Documented by: Iopamidol (Iopamidol 755 Mg/Ml 100 Ml Bottle) 100 ml IVPUSH ONETIME ONE Stop: 03/02/21 08:53 Last Admin: 03/02/21 09:02 Dose: 100 ml Documented by: Lorazepam (Lorazepam 2 Mg/Ml Sdv) 1 mg IVPUSH ONETIME ONE Stop: 02/26/21 16:49 Last Admin: 02/26/21 16:52 Dose: 1 mg Documented by: Magnesium Oxide (Magnesium Oxide 400 Mg Tab) 400 mg PO ONETIME ONE Stop: 02/26/21 13:00 Last Admin: 02/26/21 13:19 Dose: 400 mg Documented by: Metoclopramide HCl (Metoclopramide 10 Mg/2 Ml Sdv) 5 mg IVPUSH ONETIME ONE Stop: 02/26/21 11:50 Last Admin: 02/26/21 11:57 Dose: 5 mg Documented by: Metoprolol Tartrate (Metoprolol Tartrate 5 Mg/5 Ml Sdv) 5 mg IVPUSH ONETIME ONE Stop: 02/26/21 11:48 Last Admin: 02/26/21 11:57 Dose: 5 mg Documented by: Metoprolol Tartrate (Metoprolol Tartrate 5 Mg/5 Ml Sdv) 5 mg IVPUSH ONETIME ONE Stop: 02/26/21 12:20 Last Admin: 02/26/21 12:46 Dose: 5 mg Documented by: Metoprolol Tartrate (Metoprolol Tartrate 50 Mg Tab) 75 mg PO BID DIAMANTE Oxycodone HCl (Oxycodone 5 Mg Tab) 5 mg PO Q4H PRN PRN Reason: Pain (moderate 4-6) Last Admin: 02/28/21 09:12 Dose: 5 mg Documented by: Oxycodone HCl (Oxycodone 5 Mg Tab) 10 mg PO Q6H PRN PRN Reason: Pain (moderate 4-6) Last Admin: 03/02/21 03:29 Dose: 10 mg Documented by: Potassium Chloride (Potassium Chloride 20 Meq Tab.Er) 40 meq PO ONETIME ONE Stop: 02/26/21 13:00 Last Admin: 02/26/21 13:11 Dose: 40 meq Documented by: Rivaroxaban (Rivaroxaban 10 Mg Tab) 20 mg PO DAILY DIAMANTE Sodium Chloride (Sodium Chloride 0.9% 10 Ml Sdv) 10 ml FLUSH ONETIME ONE Stop: 03/02/21 08:53 Last Admin: 03/02/21 12:03 Dose: 10 ml Documented by: Vancomycin HCl (Pharmacy To Dose - Vancomycin) 0 dose .XX ASDIRECTED PRN PRN Reason: RX TO DOSE VANCOMYCIN - Exam General: Alert, Oriented HEENT: Pupils Equal, Pupils Reactive, EOMI, Mucous Membr. Moist/[place] Neck: Supple Lungs: Clear to Auscultation, Normal Respiratory Effort Cardiovascular: Irregular Rhythm. No: Regular Rate, Regular Rhythm GI/Abdominal Exam: Normal Bowel Sounds, Soft, Non-Tender, No Organomegaly, No Distention, No Abnormal Bruit, No Mass, Pelvis Stable (Male) Exam: No Hernia, Normal Inspection, Normal Prostate, Circumcised Back Exam: Normal Inspection, Full Range of Motion Extremities: Normal Inspection, Normal Range of Motion, Non-Tender, No Pedal Edema, Normal Capillary Refill, Joint Swelling, Limited Range of Motion, Increased Warmth, Redness Skin: Warm, Dry, Intact Wound/Incisions: Healing Well Neurological: No New Focal Deficit, Strength Equal Bilateral. No: Sensation Intact Psy/Mental Status: Alert, Normal Affect, Normal Mood. No: Hallucinations, Withdrawal Symptoms - Patient Data Lab Results Last 24 hrs: Laboratory Results - last 24 hr 03/05/21 03/05/21 03/05/21 Range/Units 05:09 17:41 21:50 WBC (4.23-9.07) K/mm3 RBC (4.63-6.08) M/mm3 Hgb (13.7-17.5) gm/dl Hct (40.1-51.0) % MCV (79.0-92.2) fl MCH (25.7-32.2) pg MCHC (32.2-35.5) g/dl RDW Std Deviation (35.1-43.9) fL Plt Count (163-337) K/mm3 MPV (9.4-12.3) fl Neut % (Auto) (34.0-67.9) % Lymph % (Auto) (21.8-53.1) % Fleming % (Auto) (5.3-12.2) % Eos % (Auto) (0.8-7.0) Baso % (Auto) (0.1-1.2) % Neut # (Auto) (1.78-5.38) K/mm3 Lymph # (Auto) (1.32-3.57) K/mm3 Fleming # (Auto) (0.30-0.82) K/mm3 Eos # (Auto) (0.04-0.54) K/mm3 Baso # (Auto) (0.01-0.08) K/mm3 Sodium (136-145) mEq/L Potassium (3.5-5.1) mEq/L Chloride (98-107) mEq/L Carbon Dioxide (21-32) mEq/L Anion Gap (5-15) BUN (7-18) mg/dL Creatinine (0.7-1.3) mg/dL Est Cr Clr Drug Dosing mL/min Estimated GFR (MDRD) (>60) mL/min BUN/Creatinine Ratio (14-18) Glucose (70-99) mg/dL POC Glucose 122 H 139 H (70-99) mg/dL Hemoglobin A1c 5.2 ( - 5.6) % Calcium (8.5-10.1) mg/dL Magnesium (1.8-2.4) mg/dL Iron (65-175) ug/dL Ferritin (26-388) ng/ml Total Bilirubin (0.2-1.0) mg/dL AST (15-37) U/L ALT (16-63) U/L Alkaline Phosphatase (46-116) U/L C-Reactive Protein (<1.0) mg/dL Total Protein (6.4-8.2) g/dl Albumin (3.4-5.0) g/dl Globulin gm/dL Albumin/Globulin Ratio (1-2) 03/06/21 03/06/21 03/06/21 Range/Units 06:15 06:15 06:15 WBC 7.55 (4.23-9.07) K/mm3 RBC 3.25 L (4.63-6.08) M/mm3 Hgb 9.1 L (13.7-17.5) gm/dl Hct 29.6 L (40.1-51.0) % MCV 91.1 (79.0-92.2) fl MCH 28.0 (25.7-32.2) pg MCHC 30.7 L (32.2-35.5) g/dl RDW Std Deviation 50.5 H (35.1-43.9) fL Plt Count 167 (163-337) K/mm3 MPV 8.9 L (9.4-12.3) fl Neut % (Auto) 61.3 (34.0-67.9) % Lymph % (Auto) 16.8 L (21.8-53.1) % Fleming % (Auto) 14.7 H (5.3-12.2) % Eos % (Auto) 6.4 (0.8-7.0) Baso % (Auto) 0.4 (0.1-1.2) % Neut # (Auto) 4.63 (1.78-5.38) K/mm3 Lymph # (Auto) 1.27 L (1.32-3.57) K/mm3 Fleming # (Auto) 1.11 H (0.30-0.82) K/mm3 Eos # (Auto) 0.48 (0.04-0.54) K/mm3 Baso # (Auto) 0.03 (0.01-0.08) K/mm3 Sodium 142 (136-145) mEq/L Potassium 4.0 (3.5-5.1) mEq/L Chloride 105 (98-107) mEq/L Carbon Dioxide 30 (21-32) mEq/L Anion Gap 11.0 (5-15) BUN 5 L (7-18) mg/dL Creatinine 0.8 (0.7-1.3) mg/dL Est Cr Clr Drug Dosing 93.81 mL/min Estimated GFR (MDRD) > 60 (>60) mL/min BUN/Creatinine Ratio 6.3 L (14-18) Glucose 104 H (70-99) mg/dL POC Glucose (70-99) mg/dL Hemoglobin A1c ( - 5.6) % Calcium 8.8 (8.5-10.1) mg/dL Magnesium 1.8 (1.8-2.4) mg/dL Iron 23 L (65-175) ug/dL Ferritin 153 (26-388) ng/ml Total Bilirubin 0.5 (0.2-1.0) mg/dL AST 19 (15-37) U/L ALT 23 (16-63) U/L Alkaline Phosphatase 44 L (46-116) U/L C-Reactive Protein (<1.0) mg/dL Total Protein 6.1 L (6.4-8.2) g/dl Albumin 2.4 L (3.4-5.0) g/dl Globulin 3.7 gm/dL Albumin/Globulin Ratio 0.7 L (1-2) 03/06/21 Range/Units 06:15 WBC (4.23-9.07) K/mm3 RBC (4.63-6.08) M/mm3 Hgb (13.7-17.5) gm/dl Hct (40.1-51.0) % MCV (79.0-92.2) fl MCH (25.7-32.2) pg MCHC (32.2-35.5) g/dl RDW Std Deviation (35.1-43.9) fL Plt Count (163-337) K/mm3 MPV (9.4-12.3) fl Neut % (Auto) (34.0-67.9) % Lymph % (Auto) (21.8-53.1) % Fleming % (Auto) (5.3-12.2) % Eos % (Auto) (0.8-7.0) Baso % (Auto) (0.1-1.2) % Neut # (Auto) (1.78-5.38) K/mm3 Lymph # (Auto) (1.32-3.57) K/mm3 Fleming # (Auto) (0.30-0.82) K/mm3 Eos # (Auto) (0.04-0.54) K/mm3 Baso # (Auto) (0.01-0.08) K/mm3 Sodium (136-145) mEq/L Potassium (3.5-5.1) mEq/L Chloride (98-107) mEq/L Carbon Dioxide (21-32) mEq/L Anion Gap (5-15) BUN (7-18) mg/dL Creatinine (0.7-1.3) mg/dL Est Cr Clr Drug Dosing mL/min Estimated GFR (MDRD) (>60) mL/min BUN/Creatinine Ratio (14-18) Glucose (70-99) mg/dL POC Glucose (70-99) mg/dL Hemoglobin A1c ( - 5.6) % Calcium (8.5-10.1) mg/dL Magnesium (1.8-2.4) mg/dL Iron (65-175) ug/dL Ferritin (26-388) ng/ml Total Bilirubin (0.2-1.0) mg/dL AST (15-37) U/L ALT (16-63) U/L Alkaline Phosphatase (46-116) U/L C-Reactive Protein 7.8 H* (<1.0) mg/dL Total Protein (6.4-8.2) g/dl Albumin (3.4-5.0) g/dl Globulin gm/dL Albumin/Globulin Ratio (1-2) Result Diagrams: 03/06/21 06:15 03/06/21 06:15 Nelson Results Last 24 hrs: Microbiology 03/03/21 14:33 Blood Culture - Preliminary Blood - Venous 03/03/21 14:25 Blood Culture - Preliminary Blood - Venous - Lab Draw Sepsis Event Note - Evaluation Sepsis Screening Result: No Definite Risk - Focused Exam Vital Signs: Vital Signs Temp Pulse Resp BP BP Pulse Ox Pulse Ox 03/06/21 12:52 123 H 03/06/21 12:09 95 03/06/21 12:00 36.9 C 18 112/83 91 L 03/06/21 09:21 140 H 107/84 03/06/21 07:52 36.8 C 16 107/84 91 L 03/06/21 04:00 36.4 C 18 116/98 H 96 - Problem List & Annotations (1) Afib, Atrial fibrillation SNOMED Code(s): 09045534 Code(s): I48.91 - UNSPECIFIED ATRIAL FIBRILLATION Status: Chronic Priority: High Current Visit: Yes Onset Date: ~03/05/21 Annotation/Comment:: rate slowly coming down/// may need to add dig to control (2) Alcohol abuse SNOMED Code(s): 38043161 Code(s): F10.10 - ALCOHOL ABUSE, UNCOMPLICATED Status: Chronic Priority: High Current Visit: Yes Onset Date: ~03/05/21 Annotation/Comment:: cannot attend etoh treatment sec to cog impairment andhigh risk of relapse (3) Acute respiratory failure with hypoxemia SNOMED Code(s): 414667901 Code(s): J96.01 - ACUTE RESPIRATORY FAILURE WITH HYPOXIA Status: Acute Priority: Medium Current Visit: No Onset Date: ~03/04/21 Annotation/Comment:: slowly getting better but copd chronic and discussed lung findings enlarged lymph nodes repeat ct scan in 3 months (4) CHF (congestive heart failure) SNOMED Code(s): 21475023 Code(s): I50.9 - HEART FAILURE, UNSPECIFIED Status: Acute Priority: Medium Current Visit: No Onset Date: ~01/31/21 Qualifiers: Heart failure type: right-sided Heart failure chronicity: acute on chronic Qualified Code(s): I50.813 - Acute on chronic right heart failure Annotation/Comment:: lasix needed and still overloaded. cont diuresis,start losartan (5) Wernicke-Korsakoff syndrome SNOMED Code(s): 04507880, 12197172, 839996417 Code(s): F04 - AMNESTIC DISORDER DUE TO KNOWN PHYSIOLOGICAL CONDITION Status: Acute Priority: Medium Current Visit: Yes Onset Date: ~03/03/21 (6) Hyperuricemia SNOMED Code(s): 90779250 Code(s): E79.0 - HYPERURICEMIA W/O SIGNS OF INFLAM ARTHRIT AND TOPHACEOUS DIS Status: Acute Priority: Medium Current Visit: Yes Onset Date: ~03/04/21 (7) Osteoarthritis SNOMED Code(s): 277030429 Code(s): M19.90 - UNSPECIFIED OSTEOARTHRITIS, UNSPECIFIED SITE Status: Acute Priority: High Current Visit: Yes Onset Date: ~03/03/21 Qualifiers: Osteoarthritis location: foot Osteoarthritis type: unspecified Laterality: left Qualified Code(s): M19.072 - Primary osteoarthritis, left ankle and foot (8) Type 2 diabetes mellitus SNOMED Code(s): 20382354 Code(s): E11.9 - TYPE 2 DIABETES MELLITUS WITHOUT COMPLICATIONS Status: Chronic Priority: Medium Current Visit: No Onset Date: ~03/03/21 Qualifiers: Diabetes mellitus nursing home insulin use: without nursing home use Diabetes mellitus complication status: with neurologic complications Diabetes mellitus complication detail: with autonomic neuropathy Qualified Code(s): E11.43 - Type 2 diabetes mellitus with diabetic autonomic (poly)neuropathy (9) Alcohol withdrawal SNOMED Code(s): 807404167 Code(s): F10.239 - ALCOHOL DEPENDENCE WITH WITHDRAWAL, UNSPECIFIED Status: Resolved Priority: High Current Visit: No Qualifiers: Complication of substance-induced condition: with unspecified complication Qualified Code(s): F10.239 - Alcohol dependence with withdrawal, unspecified (10) Chronic atrial fibrillation with RVR SNOMED Code(s): 003309427, 937569549397441 Code(s): I48.20 - CHRONIC ATRIAL FIBRILLATION, UNSPECIFIED Status: Resolved Priority: Medium Current Visit: No Onset Date: ~03/03/21 - Problem List Review Problem List Initiated/Reviewed/Updated: Yes - My Orders Last 24 Hours: My Active Orders 03/05/21 15:45 PLATELET ANTIBODY PROFILE [REF] Routine 03/06/21 11:34 Foot 2V Lt [CR] Routine 03/06/21 11:35 Chest 2V [CR] Routine 03/06/21 11:45 Digoxin [Lanoxin] 250 mcg PO Q4H 03/06/21 12:00 Mometasone/Formoterol [Dulera 100-5 MCG] 2 puff IH BID 03/06/21 14:00 Furosemide [Lasix] 40 mg PO BIDDIURETIC 03/07/21 06:39 CRP [C-REACTIVE PROTEIN] [CHEM] DAILY 03/07/21 07:00 PRO B-TYPE NATRIUR PEPT,BNPPRO [CHEM] Routine 03/08/21 06:39 CRP [C-REACTIVE PROTEIN] [CHEM] DAILY - Assessment Assessment:: 03/05/21 afebrile/irritable / vss voided x 1 last night /increased lasix this am and arthur better . p.e. tired /little weak/loose prod. cough//wheezy with talking. skin:mild pallor. lungs cough and wheeze noted bibasiler cor telemetry 120-145 while in chair . stable lbb afib . irreg reg 2/6 syst. murmur at rt 2nd ics. mod jvd. abd benign. appetite better. liver and spleen not appreciated no ascites felt. ms stable oa changes. gouty deposits dips and pips neuro aox 4 quintero/ able to sit up lab hgn low 8.2 and k stable creat 1.0 to 1.4 crp and repeat pending. chest xray fibrosis/copd and diffuse infiltrate suggests pneumonia ct scan lesion rt lower lobe small/ fibrosis/ infiltrates/copd and fibrosis assess 1//// pneumonia on day 3 antibiotics and some interval improvement. switch to p.o antibiotics anticipated. 2/// copd stable but severe. fibrosis and lesion on ct scan with hilar adenopathy which will need follow up c.t 3/// afib rvr amioderone /diltizem/ metoprolol all high dose. will monitor after am lasix . 4/// etohism. patient has not delt with this and has dx of Wernicke encephalopathy . disease/early dementia . needs to abstain form etoh totally sec now to afib but also with other complications. care issues abound . walked away from [facility] and now wants to return. [facility] placement pending acceptance. ciwa low and on low dose antidepressant and benzodiazepam. 5/// because of rt hip issues and copd and chronic etohism he cannot attend etoh rehab but seems ready to give up etoh with assistance. wants to try livetrol 6/// anemia check hemmoccults and follow up . on anticoagulant / check iron levels . thrombocytopenia platlets low and recheck pending . ? occult bleeding . 8// k now replaced. mag now replaced. self cares unable and unlikely to change rapidly. 9///blood sugars increased ? pre or dm2 . hip injection as o.p . wean to oral antibiotics and room air and p.o meds . sniff placemnt being arranged. boh - Plan Plan:: This is a 60M with past medical history Diastolic CHF, Type II DM, Alcoholism, Afib (on xarelto/metoprolol/diltiazem) presenting for evaluation of afib w/rvr 1. Afib w/RVR; RVR improving as withdrawal symptoms decrease 2. SIRS syndrome; r/o sepsis; tachycardia; leukocytosis; lactic acidosis; sepsis ruled out 3. acute systolic CHF exacerbation; EF mildly reduced 40-45%; unable to diurese due to hypotension; presumed infection; 4. Hx of alcoholism 5. Hx of chronic left hip pain 6. Hx of Type II DM with peripheral neuropathy 7. Obesity 8. Suspected ABRAHAN 9. Alcohol withdrawal syndrome 10. hypomagnesemia 11. Possible PNA; CT PE study negative for PE but possible infiltrate; started on doxycycline and ceftriaxone on03/02; broadened to vancomycin and zosyn on 03/03 Plan -serial lactate completed -blood cx NGTD -empiric zosyn stopped; started on doxycycline and ceftriaxone on03/02 for possible PNA; broadened to vancomycin and zosyn on 03/03 due to fever+WBC -hold metformin -increased metoprolol to 100 mg BID 02/27 -started amiodarone 200 mg BID per cardiology outpatient recs -diltiazem start 30 mg q6h QID 03/02 for rate control->discontinued due to concerns for sepsis and episodic hypotension -tele -monitor I&O -CT left hip results showing avascular necrosis of hip; case discussed with [employer] ortho likely will need elective hip replacement; WBAT -Ortho consult 03/04 -pain control -CIWA protocol; monitor for withdrawal symptoms -PT, OT, SW consult Echo completed 03/03 showing 1. LVH 2. Moderate global hypokinesis of the LV with EF 40-45% 3. Severely dilated left atrium 4. Mild MVR 5. Mild TVR 6. RV systolic pressure elevated at 40.5 -anticipate will need diuresis once HR and BP stabilize as withdrawal symptoms improve -oxygen requirements trending down to 2 liters -Venous doppler US ordered today 03/04 Code-Full code DVT ppx-xarelto Dispo-TBD likely will need short term rehab; anticipated discharge early next week to short term rehab 03/05/21 03/05/21 afebrile/irritable / vss voided x 1 last night /increased lasix this am and arthur better . p.e. tired /little weak/loose prod. cough//wheezy with talking. skin:mild pallor. lungs cough and wheeze noted bibasiler cor telemetry 120-145 while in chair . stable lbb afib . irreg reg 2/6 syst. murmur at rt 2nd ics. mod jvd. abd benign. appetite better. liver and spleen not appreciated no ascites felt. ms stable oa changes. gouty deposits dips and pips neuro aox 4 quintero/ able to sit up lab hgn low 8.2 and k stable creat 1.0 to 1.4 crp and repeat pending. ciwa 5-9 range chest xray fibrosis/copd and diffuse infiltrate suggests pneumonia ct scan lesion rt lower lobe small/ fibrosis/ infiltrates/copd and fibrosis assess 1//// pneumonia on day 3 antibiotics and some interval improvement. switch to p.o antibiotics anticipated. 2/// copd stable but severe. fibrosis and lesion on ct scan with hilar adenopathy which will need follow up c.t 3/// afib rvr amioderone /diltizem/ metoprolol all high dose. will monitor after am lasix . 4/// etohism. patient has not delt with this and has dx of Wernicke encephalopathy . disease/early dementia . needs to abstain form etoh totally sec now to afib but also with other complications. care issues abound . walked away from [facility] and now wants to return. [facility] placement pending acceptance. ciwa low and on low dose antidepressant and benzodiazepam. 5/// because of rt hip issues and copd and chronic etohism he cannot attend etoh rehab but seems ready to give up etoh with assistance. wants to try livetrol 6/// anemia check hemmoccults and follow up . on anticoagulant / check iron levels . thrombocytopenia platlets low and recheck pending . ? occult bleeding . 8// k now replaced. mag now replaced. self cares unable and unlikely to change rapidly. 9///blood sugars increased ? pre or dm2 . hip injection as o.p . wean to oral antibiotics and room air and p.o meds . sniff placemnt being arranged. boh 03/06/21 afebrile vss o2 on 1 liter / heart rate elavateswith any activity even talking. afib 90s at rest. no tachipnea /prod cough. lungs decreased but clear. cor ir /ir 90sno m s3/s4 abd:benign. ms :left foot warmth,pain and redness. increased with flexion of toe. no other joints involved other than degenerative changes. pedal : edema 3 plus bilateral. assess suspected werneiches encephalopathy mild with multiple features/ widthdrawl mild on admission now resolved. -neuro features of forgetting and repeating.speech not too dysarthric but thought process very concrete. -patient has remorse and regrets about life circumstances. -isolation and falling and impairment related to hip pain discussed and he is agreeable to injection of hip and rehab. he is agreeable to abstaining from etoh and wants to try vivatrol and discussed cost may not be covered by [facility]. -discussed treatment but cannot participate sec to hip and other issues. discussed copd improving and started laba /steriod inhaler. discussed afib still not rate controlled and consider adding digoxin for further rate control to amioderone/betablocker and diltiazem. -discussed pneumonia and cellulitis both seem to respond to augmentin but checking xrays left foot as red and tender and swollen. -discussed heart failure and afib and need not to cont. etoh. increased heart failure discussed. depression being treated. sec ftt discussed /treat anxiety /depression -joint pain check uric acid and review xray crp and cbc boh
[2021-03-06] MEDS: Melatonin 3 MG Tab PO PRN (20:31)
[2021-03-06] MEDS: Gabapentin 600 MG Tab PO SCH (20:32)
[2021-03-06] MEDS: Potassium Chloride 20 MEQ Tab.ER PO SCH (20:32)
[2021-03-06] MEDS: HYDROmorphone 0.5 MG/0.5 ML Syringe IVPUSH PRN (23:58)
[2021-03-07] MEDS: oxyCODONE 5 MG Tab PO PRN ×3 (03:42→21:01)
[2021-03-07] MEDS: Insulin Lispro 100 UNIT/ML 10 ML Vial SUBCUT SCH ×4 (06:45→22:16)
[2021-03-07] MEDS: Furosemide 40 MG Tab PO SCH ×2 (06:52→15:26)
[2021-03-07] MEDS: Pantoprazole 40 MG Tab.CR PO SCH (06:52)
[2021-03-07] MEDS: Thiamine 100 MG Tab PO SCH (08:04)
[2021-03-07] MEDS: Gabapentin 300 MG Cap PO SCH (08:04)
[2021-03-07] MEDS: Amiodarone 200 MG Tab PO SCH ×2 (08:04→20:36)
[2021-03-07] MEDS: Amoxicillin/Clavulanate K 875-125 MG Tab PO SCH ×2 (08:04→20:36)
[2021-03-07] MEDS: Metoprolol Tartrate 100 MG Tab PO SCH ×2 (08:05→20:35)
[2021-03-07] MEDS: Formoterol/Mometasone 100-5 MCG 8.8 GM Inhaler IH SCH ×2 (09:30→20:46)
--- NOTE | 2021-03-07 10:00 | CR ---
Left foot: 2 views of the left foot were obtained. Comparison: No prior study is available. Small plantar spur is seen. Small spur is noted at the attachment of the Achilles tendon to the calcaneus. Soft tissue swelling is noted. Vascular calcification is seen. Prior surgery is noted within the distal fibula with 2 screws crossing from the fibula into the tibia. Severe joint space narrowing with osteophytes are seen within the first MPJ joint. No focal erosive change is seen. No focal fracture or dislocation is seen. Impression: 1. Diffuse soft tissue swelling, presumably due to cellulitis.. 2. Other findings as noted. No acute osseous abnormality is appreciated. Diagnostic code #3
--- NOTE | 2021-03-07 10:01 | CR ---
Chest: 2 views of the chest were obtained. Comparison: Prior chest x-ray of 03/03/21. Heart size and mediastinum are normal. Slight increased lung markings are seen which appear to be stable. Slight scarring is noted within the right midlung. Minimal degenerative change is seen within the spine. Impression: 1. Findings as noted above. 2. No appreciable change is seen from previous study. Diagnostic code #2
--- NOTE | 2021-03-07 13:50 | PCM.PN ---
- General Info Date of Service: 03/07/21 - Review of Systems General: Reports: No Symptoms HEENT: Reports: No Symptoms Pulmonary: Reports: No Symptoms Cardiovascular: Reports: No Symptoms Gastrointestinal: Reports: No Symptoms Genitourinary: Reports: No Symptoms Musculoskeletal: Reports: Joint Pain (L hip pain) Skin: Reports: No Symptoms Neurological: Reports: No Symptoms Psychiatric: Reports: No Symptoms - Patient Data Vitals - Most Recent: Last Vital Signs Temp 96.8 F L 03/07/21 08:00 Pulse 106 H 03/07/21 08:05 Resp 18 03/07/21 08:00 BP 106/78 03/07/21 08:05 Pulse Ox 94 L 03/07/21 09:32 Weight - Most Recent: 115.711 kg I&O - Last 24 Hours: Intake & Output 03/06/21 03/07/21 03/07/21 22:59 06:59 14:59 Intake Total 1290 1237 Output Total 2118 790 0964 Balance 90 637 -1400 Lab Results Last 24 Hours: Laboratory Results - last 24 hr 03/06/21 03/06/21 03/07/21 Range/Units 06:15 16:40 04:45 WBC 7.27 (4.23-9.07) K/mm3 RBC 3.02 L (4.63-6.08) M/mm3 Hgb 8.5 L (13.7-17.5) gm/dl Hct 27.5 L (40.1-51.0) % MCV 91.1 (79.0-92.2) fl MCH 28.1 (25.7-32.2) pg MCHC 30.9 L (32.2-35.5) g/dl RDW Std Deviation 50.3 H (35.1-43.9) fL Plt Count 167 (163-337) K/mm3 MPV 8.9 L (9.4-12.3) fl Neut % (Auto) 60.4 (34.0-67.9) % Lymph % (Auto) 19.0 L (21.8-53.1) % Wetzel % (Auto) 15.7 H (5.3-12.2) % Eos % (Auto) 3.9 (0.8-7.0) Baso % (Auto) 0.3 (0.1-1.2) % Neut # (Auto) 4.40 (1.78-5.38) K/mm3 Lymph # (Auto) 1.38 (1.32-3.57) K/mm3 [place] # (Auto) 1.14 H (0.30-0.82) K/mm3 Eos # (Auto) 0.28 (0.04-0.54) K/mm3 Baso # (Auto) 0.02 (0.01-0.08) K/mm3 Manual Slide Review Abnormal smear Sodium (136-145) mEq/L Potassium (3.5-5.1) mEq/L Chloride (98-107) mEq/L Carbon Dioxide (21-32) mEq/L Anion Gap (5-15) BUN (7-18) mg/dL Creatinine (0.7-1.3) mg/dL Est Cr Clr Drug Dosing mL/min Estimated GFR (MDRD) (>60) mL/min BUN/Creatinine Ratio (14-18) Glucose (70-99) mg/dL POC Glucose 111 H (70-99) mg/dL Uric Acid 3.6 (3.5-7.2) mg/dL Calcium (8.5-10.1) mg/dL Magnesium (1.8-2.4) mg/dL C-Reactive Protein (<1.0) mg/dL NT-Pro-B Natriuret Pep (0-125) pg/mL 03/07/21 03/07/21 03/07/21 Range/Units 04:45 04:45 04:45 WBC (4.23-9.07) K/mm3 RBC (4.63-6.08) M/mm3 Hgb (13.7-17.5) gm/dl Hct (40.1-51.0) % MCV (79.0-92.2) fl MCH (25.7-32.2) pg MCHC (32.2-35.5) g/dl RDW Std Deviation (35.1-43.9) fL Plt Count (163-337) K/mm3 MPV (9.4-12.3) fl Neut % (Auto) (34.0-67.9) % Lymph % (Auto) (21.8-53.1) % [place] % (Auto) (5.3-12.2) % Eos % (Auto) (0.8-7.0) Baso % (Auto) (0.1-1.2) % Neut # (Auto) (1.78-5.38) K/mm3 Lymph # (Auto) (1.32-3.57) K/mm3 [place] # (Auto) (0.30-0.82) K/mm3 Eos # (Auto) (0.04-0.54) K/mm3 Baso # (Auto) (0.01-0.08) K/mm3 Manual Slide Review Sodium 140 (136-145) mEq/L Potassium 4.0 (3.5-5.1) mEq/L Chloride 102 (98-107) mEq/L Carbon Dioxide 33 H (21-32) mEq/L Anion Gap 9.0 (5-15) BUN 5 L (7-18) mg/dL Creatinine 0.8 (0.7-1.3) mg/dL Est Cr Clr Drug Dosing 93.81 mL/min Estimated GFR (MDRD) > 60 (>60) mL/min BUN/Creatinine Ratio 6.3 L (14-18) Glucose 103 H (70-99) mg/dL POC Glucose (70-99) mg/dL Uric Acid (3.5-7.2) mg/dL Calcium 8.5 (8.5-10.1) mg/dL Magnesium 1.8 (1.8-2.4) mg/dL C-Reactive Protein 8.9 H* (<1.0) mg/dL NT-Pro-B Natriuret Pep 1387 H (0-125) pg/mL 03/07/21 Range/Units 13:23 WBC (4.23-9.07) K/mm3 RBC (4.63-6.08) M/mm3 Hgb (13.7-17.5) gm/dl Hct (40.1-51.0) % MCV (79.0-92.2) fl MCH (25.7-32.2) pg MCHC (32.2-35.5) g/dl RDW Std Deviation (35.1-43.9) fL Plt Count (163-337) K/mm3 MPV (9.4-12.3) fl Neut % (Auto) (34.0-67.9) % Lymph % (Auto) (21.8-53.1) % [place] % (Auto) (5.3-12.2) % Eos % (Auto) (0.8-7.0) Baso % (Auto) (0.1-1.2) % Neut # (Auto) (1.78-5.38) K/mm3 Lymph # (Auto) (1.32-3.57) K/mm3 [place] # (Auto) (0.30-0.82) K/mm3 Eos # (Auto) (0.04-0.54) K/mm3 Baso # (Auto) (0.01-0.08) K/mm3 Manual Slide Review Sodium (136-145) mEq/L Potassium (3.5-5.1) mEq/L Chloride (98-107) mEq/L Carbon Dioxide (21-32) mEq/L Anion Gap (5-15) BUN (7-18) mg/dL Creatinine (0.7-1.3) mg/dL Est Cr Clr Drug Dosing mL/min Estimated GFR (MDRD) (>60) mL/min BUN/Creatinine Ratio (14-18) Glucose (70-99) mg/dL POC Glucose 123 H (70-99) mg/dL Uric Acid (3.5-7.2) mg/dL Calcium (8.5-10.1) mg/dL Magnesium (1.8-2.4) mg/dL C-Reactive Protein (<1.0) mg/dL NT-Pro-B Natriuret Pep (0-125) pg/mL [facility] Results Last 24 Hours: Microbiology 03/07/21 07:45 Stool Occult Blood ([facility]ELSON) - Final Stool / Feces Med Orders - Current: Current Medications Acetaminophen (Acetaminophen 325 Mg Tab) 650 mg PO Q4H PRN PRN Reason: Pain (Mild 1-3)/fever Last Admin: 03/05/21 07:37 Dose: 650 mg Documented by: Amiodarone HCl (Amiodarone 200 Mg Tab) 200 mg PO BID [facility] Last Admin: 03/07/21 08:04 Dose: 200 mg Documented by: Amoxicillin/Clavulanate Potassium (Amoxicillin/Clavulanate K 875-125 Mg Tab) 1 tab PO Q12HR [facility] Stop: 03/10/21 21:01 Last Admin: 03/07/21 08:04 Dose: 1 tab Documented by: Digoxin (Digoxin 125 Mcg Tab) 125 mcg PO DAILY [facility] Furosemide (Furosemide 40 Mg Tab) 40 mg PO BIDDIURETIC [facility] Last Admin: 03/07/21 06:52 Dose: 40 mg Documented by: Gabapentin (Gabapentin 600 Mg Tab) 600 mg PO BEDTIME [facility] Last Admin: 03/06/21 20:32 Dose: 600 mg Documented by: Gabapentin (Gabapentin 300 Mg Cap) 300 mg PO DAILY [facility] Last Admin: 03/07/21 08:04 Dose: 300 mg Documented by: Hydromorphone HCl (Hydromorphone 0.5 Mg/0.5 Ml Syringe) 1 mg IVPUSH Q2H PRN PRN Reason: Pain (severe 7-10) Last Admin: 03/06/21 23:58 Dose: 1 mg Documented by: Ferric Sodium Gluconate Complex 250 mg/ Sodium Chloride 120 mls @ 60 mls/hr IV ONETIME ONE Stop: 03/07/21 14:25 Insulin Human Lispro (Insulin Lispro 100 Unit/Ml 10 Ml Vial) 0 unit SUBCUT QIDACANDBED [facility]; Protocol Last Admin: 03/07/21 06:45 Dose: Not Given Documented by: Lorazepam (Lorazepam 1 Mg Tab) 1 - 2 mg PO ASDIRECTED [facility]; Protocol Last Admin: 03/05/21 17:16 Dose: 1 mg Documented by: Magnesium Hydroxide (Magnesium Hydroxide 400 Mg/5 Ml Susp 30 Ml Cup) 30 ml PO DAILY PRN PRN Reason: Constipation Last Admin: 03/05/21 02:51 Dose: 30 ml Documented by: Melatonin (Melatonin 3 Mg Tab) 6 mg PO BEDTIME PRN PRN Reason: Sleep Last Admin: 03/06/21 20:31 Dose: 6 mg Documented by: Metoprolol Tartrate (Metoprolol Tartrate 100 Mg Tab) 100 mg PO BID [facility] Last Admin: 03/07/21 08:05 Dose: 100 mg Documented by: Metoprolol Tartrate (Metoprolol Tartrate 5 Mg/5 Ml Sdv) 5 mg IVPUSH Q6H PRN PRN Reason: Arrhythmia Mometasone Furoate/Formoterol Fumar (Formoterol/Mometasone 100-5 Mcg 8.8 Gm Inhaler) 2 puff IH BID [facility] Last Admin: 03/07/21 09:30 Dose: 2 puff Documented by: Ondansetron HCl (Ondansetron 4 Mg/2 Ml Sdv) 4 mg IV Q4H PRN PRN Reason: Nausea/Vomiting Last Admin: 02/28/21 10:08 Dose: 4 mg Documented by: Oxycodone HCl (Oxycodone 5 Mg Tab) 10 mg PO Q4H PRN PRN Reason: Pain (moderate 4-6) Last Admin: 03/07/21 08:04 Dose: 10 mg Documented by: Pantoprazole Sodium (Pantoprazole 40 Mg Tab.Cr) 40 mg PO ACBREAKFAST [facility] Last Admin: 03/07/21 06:52 Dose: 40 mg Documented by: Potassium Chloride (Potassium Chloride 20 Meq Tab.Er) 40 meq PO BEDTIME [facility] Last Admin: 03/06/21 20:32 Dose: 40 meq Documented by: Rivaroxaban (Rivaroxaban 10 Mg Tab) 20 mg PO DAILY [facility] Last Admin: 03/06/21 09:21 Dose: 20 mg Documented by: Sodium Chloride (Sodium Chloride 0.9% 10 Ml Syringe) 10 ml FLUSH ASDIRECTED PRN PRN Reason: Keep Vein Open Last Admin: 03/05/21 19:49 Dose: 10 ml Documented by: Thiamine HCl (Thiamine 100 Mg Tab) 100 mg PO DAILY [facility] Last Admin: 03/07/21 08:04 Dose: 100 mg Documented by: Vancomycin HCl (Pharmacy To Dose - Vancomycin) 0 dose .XX ASDIRECTED PRN PRN Reason: RX TO DOSE VANCOMYCIN Discontinued Medications Diatrizoate Meglum/Diatrizoate Sod (Diatrizoate Meglumine/Diatrizoate Sodium 37% 120 Ml Bottle) 120 ml PO ONETIME ONE Stop: 03/02/21 08:53 Last Admin: 03/02/21 09:04 Dose: Not Given Documented by: Digoxin (Digoxin 250 Mcg Tab) 250 mcg PO Q4H [facility] Stop: 03/06/21 20:00 Last Admin: 03/06/21 20:30 Dose: 250 mcg Documented by: Diltiazem HCl (Diltiazem 50 Mg/10 Ml Sdv) 10 mg IVPUSH ONETIME ONE Stop: 02/26/21 14:22 Last Admin: 02/26/21 14:27 Dose: 10 mg Documented by: Diltiazem HCl (Diltiazem 50 Mg/10 Ml Sdv) 10 mg IVPUSH ONETIME ONE Stop: 02/26/21 15:19 Last Admin: 02/26/21 15:22 Dose: 10 mg Documented by: Diltiazem HCl (Diltiazem 120 Mg Cap.Cd) 360 mg PO DAILY [facility] Diltiazem HCl (Diltiazem 120 Mg Cap.Cd) 120 mg PO DAILY [facility] Last Admin: 03/02/21 12:03 Dose: Not Given Documented by: Diltiazem HCl (Diltiazem Ir 30 Mg Tab) 30 mg PO Q6HR [facility] Last Admin: 03/03/21 11:30 Dose: 30 mg Documented by: Doxycycline Hyclate (Doxycycline 100 Mg Cap) 100 mg PO BID [facility] Last Admin: 03/03/21 09:43 Dose: 100 mg Documented by: Folic Acid (Folic Acid 1 Mg Tab) 1 mg PO DAILY [facility] Stop: 03/01/21 09:01 Last Admin: 03/01/21 08:07 Dose: 1 mg Documented by: Furosemide (Furosemide 40 Mg/4 Ml Vial) 40 mg IVPUSH NOW ONE Stop: 03/01/21 09:14 Last Admin: 03/01/21 09:33 Dose: 40 mg Documented by: Furosemide (Furosemide 20 Mg/2 Ml Vial) 20 mg IVPUSH 0600,1800 [facility] Furosemide (Furosemide 40 Mg/4 Ml Vial) 40 mg IVPUSH NOW ONE Stop: 03/05/21 08:09 Last Admin: 03/05/21 08:46 Dose: 40 mg Documented by: Furosemide (Furosemide 40 Mg/4 Ml Vial) 40 mg IVPUSH NOW ONE Stop: 03/05/21 19:04 Last Admin: 03/05/21 19:49 Dose: 40 mg Documented by: Gabapentin (Gabapentin 300 Mg Cap) 300 mg PO ONETIME ONE Stop: 03/01/21 09:13 Last Admin: 03/01/21 09:33 Dose: 300 mg Documented by: Hydromorphone HCl (Hydromorphone 0.5 Mg/0.5 Ml Syringe) 0.5 mg IVPUSH Q2H PRN PRN Reason: Pain (severe 7-10) Last Admin: 03/02/21 00:54 Dose: 0.5 mg Documented by: Sodium Chloride (Normal Saline) 1,000 mls @ 150 mls/hr IV ASDIRECTED [facility] Last Admin: 02/27/21 00:46 Dose: 150 mls/hr Documented by: Sodium Chloride (Normal Saline) 1,000 mls @ 999 mls/hr IV ONETIME ONE Stop: 02/26/21 13:58 Last Admin: 02/26/21 13:08 Dose: 999 mls/hr Documented by: Diltiazem HCl 100 mg/ Sodium (Chloride) 100 mls @ 5 mls/hr IV TITRATE [facility]; Protocol Last Titration: 02/27/21 00:01 Dose: 0 mg/hr, 0 mls/hr Documented by: Lactated Ringer's (Ringers, Lactated) 1,000 mls @ 500 mls/hr IV .BOLUS ONE Stop: 02/26/21 18:44 Last Admin: 02/26/21 17:23 Dose: 500 mls/hr Documented by: Piperacillin Sod/Tazobactam (Sod 4.5 gm/ Sodium Chloride) 100 mls @ 25 mls/hr IV Q8H [facility] Last Admin: 02/27/21 02:33 Dose: 25 mls/hr Documented by: Magnesium Sulfate/Dextrose 1 (gm/ Premix) 100 mls @ 100 mls/hr IV ONETIME ONE Stop: 02/26/21 17:59 Last Admin: 02/26/21 17:51 Dose: 100 mls/hr Documented by: Piperacillin Sod/Tazobactam (Sod 4.5 gm/ Sodium Chloride) 100 mls @ 200 mls/hr IV ONETIME ONE Stop: 02/26/21 19:29 Piperacillin Sod/Tazobactam (Sod 4.5 gm/ Sodium Chloride) 100 mls @ 200 mls/hr IV ONETIME ONE Stop: 02/26/21 20:29 Last Admin: 02/26/21 20:00 Dose: 200 mls/hr Documented by: Sodium Chloride (Normal Saline) 1,000 mls @ 500 mls/hr IV ASDIRECTED [facility] Stop: 02/26/21 23:06 Last Admin: 02/26/21 21:09 Dose: 500 mls/hr Documented by: Sodium Chloride (Sodium Chloride 0.45%) 1,000 mls @ 100 mls/hr IV ASDIRECTED [facility] Last Admin: 02/28/21 04:08 Dose: 100 mls/hr Documented by: Albumin Human 12.5 gm/ Premix 50 mls @ 50 mls/hr IV ONETIME ONE Stop: 03/01/21 13:59 Last Admin: 03/01/21 14:01 Dose: 50 mls/hr Documented by: Sodium Chloride (Normal Saline) 250 mls @ 250 mls/hr IV ONETIME ONE Stop: 03/01/21 13:59 Last Admin: 03/01/21 14:00 Dose: 250 mls/hr Documented by: Magnesium Sulfate 2 gm/ Premix 50 mls @ 25 mls/hr IV ONETIME ONE Stop: 03/01/21 18:59 Last Admin: 03/01/21 17:09 Dose: 25 mls/hr Documented by: Lactated Ringer's (Ringers, Lactated) 500 mls @ 250 mls/hr IV .BOLUS ONE Stop: 03/01/21 18:47 Last Admin: 03/01/21 17:07 Dose: 250 mls/hr Documented by: Albumin Human 12.5 gm/ Premix 50 mls @ 50 mls/hr IV ONETIME ONE Stop: 03/01/21 21:29 Last Admin: 03/01/21 20:50 Dose: 50 mls/hr Documented by: Magnesium Sulfate/Dextrose 1 (gm/ Premix) 100 mls @ 100 mls/hr IV ONETIME ONE Stop: 03/01/21 21:59 Last Admin: 03/01/21 20:34 Dose: 100 mls/hr Documented by: Sodium Chloride (Normal Saline) 100 mls @ 60 mls/hr IV ASDIRECTED [facility] Stop: 03/02/21 12:00 Last Admin: 03/02/21 09:01 Dose: 60 mls/hr Documented by: Ceftriaxone Sodium 2 gm/ (Sodium Chloride) 100 mls @ 200 mls/hr IV Q24H [facility] Last Admin: 03/02/21 16:15 Dose: 200 mls/hr Documented by: Piperacillin Sod/Tazobactam (Sod 4.5 gm/ Sodium Chloride) 100 mls @ 25 mls/hr IV Q8H [facility] Last Admin: 03/05/21 06:11 Dose: 25 mls/hr Documented by: Vancomycin HCl 1.75 gm/ Sodium (Chloride) 500 mls @ 250 mls/hr IV ONETIME ONE Stop: 03/03/21 16:59 Last Admin: 03/03/21 15:11 Dose: 250 mls/hr Documented by: Vancomycin HCl 1 gm/Vancomycin HCl 500 mg/ Sodium Chloride 500 mls @ 250 mls/hr IV Q12H [facility] Stop: 03/05/21 05:00 Last Admin: 03/05/21 02:49 Dose: 250 mls/hr Documented by: Vancomycin HCl 1.75 gm/ Sodium (Chloride) 500 mls @ 250 mls/hr IV Q12H [facility] Magnesium Sulfate 2 gm/ Premix 50 mls @ 25 mls/hr IV ONETIME ONE Stop: 03/05/21 10:06 Last Admin: 03/05/21 09:05 Dose: 25 mls/hr Documented by: Magnesium Sulfate 2 gm/ Premix 50 mls @ 25 mls/hr IV ONETIME ONE Stop: 03/06/21 13:44 Last Admin: 03/06/21 12:53 Dose: 25 mls/hr Documented by: Iopamidol (Iopamidol 755 Mg/Ml 100 Ml Bottle) 100 ml IVPUSH ONETIME ONE Stop: 03/02/21 08:53 Last Admin: 03/02/21 09:02 Dose: 100 ml Documented by: Lorazepam (Lorazepam 2 Mg/Ml Sdv) 1 mg IVPUSH ONETIME ONE Stop: 02/26/21 16:49 Last Admin: 02/26/21 16:52 Dose: 1 mg Documented by: Magnesium Oxide (Magnesium Oxide 400 Mg Tab) 400 mg PO ONETIME ONE Stop: 02/26/21 13:00 Last Admin: 02/26/21 13:19 Dose: 400 mg Documented by: Metoclopramide HCl (Metoclopramide 10 Mg/2 Ml Sdv) 5 mg IVPUSH ONETIME ONE Stop: 02/26/21 11:50 Last Admin: 02/26/21 11:57 Dose: 5 mg Documented by: Metoprolol Tartrate (Metoprolol Tartrate 5 Mg/5 Ml Sdv) 5 mg IVPUSH ONETIME ONE Stop: 02/26/21 11:48 Last Admin: 02/26/21 11:57 Dose: 5 mg Documented by: Metoprolol Tartrate (Metoprolol Tartrate 5 Mg/5 Ml Sdv) 5 mg IVPUSH ONETIME ONE Stop: 02/26/21 12:20 Last Admin: 02/26/21 12:46 Dose: 5 mg Documented by: Metoprolol Tartrate (Metoprolol Tartrate 50 Mg Tab) 75 mg PO BID [facility] Oxycodone HCl (Oxycodone 5 Mg Tab) 5 mg PO Q4H PRN PRN Reason: Pain (moderate 4-6) Last Admin: 02/28/21 09:12 Dose: 5 mg Documented by: Oxycodone HCl (Oxycodone 5 Mg Tab) 10 mg PO Q6H PRN PRN Reason: Pain (moderate 4-6) Last Admin: 03/02/21 03:29 Dose: 10 mg Documented by: Potassium Chloride (Potassium Chloride 20 Meq Tab.Er) 40 meq PO ONETIME ONE Stop: 02/26/21 13:00 Last Admin: 02/26/21 13:11 Dose: 40 meq Documented by: Rivaroxaban (Rivaroxaban 10 Mg Tab) 20 mg PO DAILY [facility] Sodium Chloride (Sodium Chloride 0.9% 10 Ml Sdv) 10 ml FLUSH ONETIME ONE Stop: 03/02/21 08:53 Last Admin: 03/02/21 12:03 Dose: 10 ml Documented by: Vancomycin HCl (Pharmacy To Dose - Vancomycin) 0 dose .XX ASDIRECTED PRN PRN Reason: RX TO DOSE VANCOMYCIN - Exam General: Alert, Cooperative, No Acute Distress HEENT: Mucous Membr. Moist/[place] Neck: Supple Lungs: Decreased Breath Sounds (in all mcleod) Cardiovascular: No Murmurs, Irregular Rhythm, Other (irregular rate) GI/Abdominal Exam: Normal Bowel Sounds, Soft, Non-Tender (Male) Exam: Deferred Extremities: Pedal Edema (3+) Skin: Warm, Dry, Intact Neurological: No New Focal Deficit Psy/Mental Status: Alert, Normal Affect, Depressed (limited insight & judgement) - Patient Data Lab Results Last 24 hrs: Laboratory Results - last 24 hr 03/06/21 03/06/21 03/07/21 Range/Units 06:15 16:40 04:45 WBC 7.27 (4.23-9.07) K/mm3 RBC 3.02 L (4.63-6.08) M/mm3 Hgb 8.5 L (13.7-17.5) gm/dl Hct 27.5 L (40.1-51.0) % MCV 91.1 (79.0-92.2) fl MCH 28.1 (25.7-32.2) pg MCHC 30.9 L (32.2-35.5) g/dl RDW Std Deviation 50.3 H (35.1-43.9) fL Plt Count 167 (163-337) K/mm3 MPV 8.9 L (9.4-12.3) fl Neut % (Auto) 60.4 (34.0-67.9) % Lymph % (Auto) 19.0 L (21.8-53.1) % Wetzel % (Auto) 15.7 H (5.3-12.2) % Eos % (Auto) 3.9 (0.8-7.0) Baso % (Auto) 0.3 (0.1-1.2) % Neut # (Auto) 4.40 (1.78-5.38) K/mm3 Lymph # (Auto) 1.38 (1.32-3.57) K/mm3 Wetzel # (Auto) 1.14 H (0.30-0.82) K/mm3 Eos # (Auto) 0.28 (0.04-0.54) K/mm3 Baso # (Auto) 0.02 (0.01-0.08) K/mm3 Manual Slide Review Abnormal smear Sodium (136-145) mEq/L Potassium (3.5-5.1) mEq/L Chloride (98-107) mEq/L Carbon Dioxide (21-32) mEq/L Anion Gap (5-15) BUN (7-18) mg/dL Creatinine (0.7-1.3) mg/dL Est Cr Clr Drug Dosing mL/min Estimated GFR (MDRD) (>60) mL/min BUN/Creatinine Ratio (14-18) Glucose (70-99) mg/dL POC Glucose 111 H (70-99) mg/dL Uric Acid 3.6 (3.5-7.2) mg/dL Calcium (8.5-10.1) mg/dL Magnesium (1.8-2.4) mg/dL C-Reactive Protein (<1.0) mg/dL NT-Pro-B Natriuret Pep (0-125) pg/mL 03/07/21 03/07/21 03/07/21 Range/Units 04:45 04:45 04:45 WBC (4.23-9.07) K/mm3 RBC (4.63-6.08) M/mm3 Hgb (13.7-17.5) gm/dl Hct (40.1-51.0) % MCV (79.0-92.2) fl MCH (25.7-32.2) pg MCHC (32.2-35.5) g/dl RDW Std Deviation (35.1-43.9) fL Plt Count (163-337) K/mm3 MPV (9.4-12.3) fl Neut % (Auto) (34.0-67.9) % Lymph % (Auto) (21.8-53.1) % Wetzel % (Auto) (5.3-12.2) % Eos % (Auto) (0.8-7.0) Baso % (Auto) (0.1-1.2) % Neut # (Auto) (1.78-5.38) K/mm3 Lymph # (Auto) (1.32-3.57) K/mm3 Wetzel # (Auto) (0.30-0.82) K/mm3 Eos # (Auto) (0.04-0.54) K/mm3 Baso # (Auto) (0.01-0.08) K/mm3 Manual Slide Review Sodium 140 (136-145) mEq/L Potassium 4.0 (3.5-5.1) mEq/L Chloride 102 (98-107) mEq/L Carbon Dioxide 33 H (21-32) mEq/L Anion Gap 9.0 (5-15) BUN 5 L (7-18) mg/dL Creatinine 0.8 (0.7-1.3) mg/dL Est Cr Clr Drug Dosing 93.81 mL/min Estimated GFR (MDRD) > 60 (>60) mL/min BUN/Creatinine Ratio 6.3 L (14-18) Glucose 103 H (70-99) mg/dL POC Glucose (70-99) mg/dL Uric Acid (3.5-7.2) mg/dL Calcium 8.5 (8.5-10.1) mg/dL Magnesium 1.8 (1.8-2.4) mg/dL C-Reactive Protein 8.9 H* (<1.0) mg/dL NT-Pro-B Natriuret Pep 1387 H (0-125) pg/mL 08/08/21 Range/Units 13:23 WBC (4.23-9.07) K/mm3 RBC (4.63-6.08) M/mm3 Hgb (13.7-17.5) gm/dl Hct (40.1-51.0) % MCV (79.0-92.2) fl MCH (25.7-32.2) pg MCHC (32.2-35.5) g/dl RDW Std Deviation (35.1-43.9) fL Plt Count (163-337) K/mm3 MPV (9.4-12.3) fl Neut % (Auto) (34.0-67.9) % Lymph % (Auto) (21.8-53.1) % [place] % (Auto) (5.3-12.2) % Eos % (Auto) (0.8-7.0) Baso % (Auto) (0.1-1.2) % Neut # (Auto) (1.78-5.38) K/mm3 Lymph # (Auto) (1.32-3.57) K/mm3 Wetzel # (Auto) (0.30-0.82) K/mm3 Eos # (Auto) (0.04-0.54) K/mm3 Baso # (Auto) (0.01-0.08) K/mm3 Manual Slide Review Sodium (136-145) mEq/L Potassium (3.5-5.1) mEq/L Chloride (98-107) mEq/L Carbon Dioxide (21-32) mEq/L Anion Gap (5-15) BUN (7-18) mg/dL Creatinine (0.7-1.3) mg/dL Est Cr Clr Drug Dosing mL/min Estimated GFR (MDRD) (>60) mL/min BUN/Creatinine Ratio (14-18) Glucose (70-99) mg/dL POC Glucose 123 H (70-99) mg/dL Uric Acid (3.5-7.2) mg/dL Calcium (8.5-10.1) mg/dL Magnesium (1.8-2.4) mg/dL C-Reactive Protein (<1.0) mg/dL NT-Pro-B Natriuret Pep (0-125) pg/mL Result Diagrams: 03/07/21 04:45 03/07/21 04:45 Nelson Results Last 24 hrs: Microbiology 03/07/21 07:45 Stool Occult Blood ([facility]) - Final Stool / Feces Sepsis Event Note - Evaluation Sepsis Screening Result: No Definite Risk - Focused Exam Vital Signs: Vital Signs Temp Pulse Resp BP BP Pulse Ox Pulse Ox 03/07/21 09:32 94 L 03/07/21 08:05 106 H 106/78 03/07/21 08:00 96.8 F L 18 106/78 89 L 03/07/21 06:00 95 03/07/21 05:00 96 03/07/21 04:00 97.8 F 18 127/88 95 - Problem List & Annotations (1) Osteoarthritis SNOMED Code(s): 455533967 Code(s): M19.90 - UNSPECIFIED OSTEOARTHRITIS, UNSPECIFIED SITE Status: Acute Priority: High Current Visit: Yes Onset Date: ~03/03/21 Qualifiers: Osteoarthritis location: foot Osteoarthritis type: unspecified Laterality: left Qualified Code(s): M19.072 - Primary osteoarthritis, left ankle and foot (2) Wernicke-Korsakoff syndrome SNOMED Code(s): 09163321, 57085294, 984273084 Code(s): F04 - AMNESTIC DISORDER DUE TO KNOWN PHYSIOLOGICAL CONDITION Status: Acute Priority: Medium Current Visit: Yes Onset Date: ~03/03/21 (3) Afib, Atrial fibrillation SNOMED Code(s): 07325429 Code(s): I48.91 - UNSPECIFIED ATRIAL FIBRILLATION Status: Chronic Priority: High Current Visit: Yes Onset Date: ~03/05/21 Annotation/Comment:: rate slowly coming down/// may need to add dig to control (4) CHF (congestive heart failure) SNOMED Code(s): 00509162 Code(s): I50.9 - HEART FAILURE, UNSPECIFIED Status: Acute Priority: Medium Current Visit: No Onset Date: ~01/31/21 Qualifiers: Heart failure type: right-sided Heart failure chronicity: acute on chronic Qualified Code(s): I50.813 - Acute on chronic right heart failure Annotation/Comment:: lasix needed and still overloaded. cont diuresis,start losartan (5) CHF exacerbation SNOMED Code(s): 429330112, 07422884363351 Code(s): I50.9 - HEART FAILURE, UNSPECIFIED Status: Acute Priority: High Current Visit: No Qualifiers: Heart failure type: unspecified Qualified Code(s): I50.9 - Heart failure, unspecified (6) Alcoholism SNOMED Code(s): 4865202 Code(s): F10.20 - ALCOHOL DEPENDENCE, UNCOMPLICATED Status: Chronic Priority: High Current Visit: No (7) Anemia SNOMED Code(s): 078783817 Code(s): D64.9 - ANEMIA, UNSPECIFIED Status: Chronic Priority: Medium Current Visit: Yes (8) COPD (chronic obstructive pulmonary disease) SNOMED Code(s): 41618392 Code(s): J44.9 - CHRONIC OBSTRUCTIVE PULMONARY DISEASE, UNSPECIFIED Status: Chronic Priority: Medium Current Visit: No Qualifiers: COPD type: unspecified COPD Qualified Code(s): J44.9 - Chronic obstructive pulmonary disease, unspecified - Problem List Review Problem List Initiated/Reviewed/Updated: Yes - Assessment Assessment:: 03/05/21 afebrile/irritable / vss voided x 1 last night /increased lasix this am and arthur better . p.e. tired /little weak/loose prod. cough//wheezy with talking. skin:mild pallor. lungs cough and wheeze noted bibasiler cor telemetry 120-145 while in chair . stable lbb afib . irreg reg 2/ syst. murmur at rt 2nd ics. mod jvd. abd benign. appetite better. liver and spleen not appreciated no ascites felt. ms stable oa changes. gouty deposits dips and pips neuro aox 4 quitnero/ able to sit up lab hgn low 8.2 and k stable creat 1.0 to 1.4 crp and repeat pending. chest xray fibrosis/copd and diffuse infiltrate suggests pneumonia ct scan lesion rt lower lobe small/ fibrosis/ infiltrates/copd and fibrosis assess 1//// pneumonia on day 3 antibiotics and some interval improvement. switch to p.o antibiotics anticipated. 2/// copd stable but severe. fibrosis and lesion on ct scan with hilar adenopathy which will need follow up c.t 3/// afib rvr amioderone /diltizem/ metoprolol all high dose. will monitor after am lasix . 4/// etohism. patient has not delt with this and has dx of Wernicke encephalopathy . disease/early dementia . needs to abstain form etoh totally sec now to afib but also with other complications. care issues abound . walked away from [facility] home and now wants to return. [facility] placement pending acceptance. ciwa low and on low dose antidepressant and benzodiazepam. 5/// because of rt hip issues and copd and chronic etohism he cannot attend etoh rehab but seems ready to give up etoh with assistance. wants to try livetrol 6/// anemia check hemmoccults and follow up . on anticoagulant / check iron levels . thrombocytopenia platlets low and recheck pending . ? occult bleeding . 8// k now replaced. mag now replaced. self cares unable and unlikely to change rapidly. 9///blood sugars increased ? pre or dm2 . hip injection as o.p . wean to oral antibiotics and room air and p.o meds . sniff placemnt being arranged. boh - Plan Plan:: This is a 60M with past medical history Diastolic CHF, Type II DM, Alcoholism, Afib (on xarelto/metoprolol/diltiazem) presenting for evaluation of afib w/rvr 1. Afib w/RVR; RVR improving as withdrawal symptoms decrease 2. SIRS syndrome; r/o sepsis; tachycardia; leukocytosis; lactic acidosis; sepsis ruled out 3. acute systolic CHF exacerbation; EF mildly reduced 40-45%; unable to diurese due to hypotension; presumed infection; 4. Hx of alcoholism 5. Hx of chronic left hip pain 6. Hx of Type II DM with peripheral neuropathy 7. Obesity 8. Suspected ABRAHAN 9. Alcohol withdrawal syndrome 10. hypomagnesemia 11. Possible PNA; CT PE study negative for PE but possible infiltrate; started on doxycycline and ceftriaxone on03/02; broadened to vancomycin and zosyn on 03/03 Plan -serial lactate completed -blood cx NGTD -empiric zosyn stopped; started on doxycycline and ceftriaxone on03/02 for possible PNA; broadened to vancomycin and zosyn on 03/03 due to fever+WBC -hold metformin -increased metoprolol to 100 mg BID 02/27 -started amiodarone 200 mg BID per cardiology outpatient recs -diltiazem start 30 mg q6h QID 03/02 for rate control->discontinued due to concerns for sepsis and episodic hypotension -tele -monitor I&O -CT left hip results showing avascular necrosis of hip; case discussed with senior manager asset protection ortho likely will need elective hip replacement; WBAT -Ortho consult 03/04 -pain control -CIWA protocol; monitor for withdrawal symptoms -PT, OT, SW consult Echo completed 03/03 showing 1. LVH 2. Moderate global hypokinesis of the LV with EF 40-45% 3. Severely dilated left atrium 4. Mild MVR 5. Mild TVR 6. RV systolic pressure elevated at 40.5 -anticipate will need diuresis once HR and BP stabilize as withdrawal symptoms improve -oxygen requirements trending down to 2 liters -Venous doppler US ordered today 03/04 Code-Full code DVT ppx-xarelto Dispo-TBD likely will need short term rehab; anticipated discharge early next week to short term rehab 03/05/21 03/05/21 afebrile/irritable / vss voided x 1 last night /increased lasix this am and arthur better . p.e. tired /little weak/loose prod. cough//wheezy with talking. skin:mild pallor. lungs cough and wheeze noted bibasiler cor telemetry 120-145 while in chair . stable lbb afib . irreg reg 2/6 syst. murmur at rt 2nd ics. mod jvd. abd benign. appetite better. liver and spleen not appreciated no ascites felt. ms stable oa changes. gouty deposits dips and pips neuro aox 4 [place]o/ able to sit up lab hgn low 8.2 and k stable creat 1.0 to 1.4 crp and repeat pending. ciwa 5-9 range chest xray fibrosis/copd and diffuse infiltrate suggests pneumonia ct scan lesion rt lower lobe small/ fibrosis/ infiltrates/copd and fibrosis assess 1//// pneumonia on day 3 antibiotics and some interval improvement. swi tch to p.o antibiotics anticipated. 2/// copd stable but severe. fibrosis and lesion on ct scan with hilar adenopathy which will need follow up c.t 3/// afib rvr amioderone /diltizem/ metoprolol all high dose. will monitor after am lasix . 4/// etohism. patient has not delt with this and has dx of Wernicke encephalopathy . disease/early dementia . needs to abstain form etoh totally sec now to afib but also with other complications. care issues abound . walked away from [facility] home and now wants to return. [facility] placement pending acceptance. ciwa low and on low dose antidepressant and benzodiazepam. 5/// because of rt hip issues and copd and chronic etohism he cannot attend etoh rehab but seems ready to give up etoh with assistance. wants to try livetrol 6/// anemia check hemmoccults and follow up . on anticoagulant / check iron levels . thrombocytopenia platlets low and recheck pending . ? occult bleeding . 8// k now replaced. mag now replaced. self cares unable and unlikely to change rapidly. 9///blood sugars increased ? pre or dm2 . hip injection as o.p . wean to oral antibiotics and room air and p.o meds . sniff placemnt being arranged. boh 03/06/21 afebrile vss o2 on 1 liter / heart rate elavateswith any activity even talking. afib 90s at rest. no tachipnea /prod cough. lungs decreased but clear. cor ir /ir 90sno m s3/s4 abd:benign. ms :left foot warmth,pain and redness. increased with flexion of toe. no other joints involved other than degenerative changes. pedal : edema 3 plus bilateral. assess suspected werneiches encephalopathy mild with multiple features/ widthdrawl mild on admission now resolved. -neuro features of forgetting and repeating.speech not too dysarthric but thought process very concrete. -patient has remorse and regrets about life circumstances. -isolation and falling and impairment related to hip pain discussed and he is agreeable to injection of hip and rehab. he is agreeable to abstaining from etoh and wants to try vivatrol and discussed cost may not be covered by [facility]. -discussed treatment but cannot participate sec to hip and other issues. discussed copd improving and started laba /steriod inhaler. discussed afib still not rate controlled and consider adding digoxin for further rate control to amioderone/betablocker and diltiazem. -discussed pneumonia and cellulitis both seem to respond to augmentin but checking xrays left foot as red and tender and swollen. -discussed heart failure and afib and need not to cont. etoh. increased heart failure discussed. depression being treated. sec ftt discussed /treat anxiety /depression -joint pain check uric acid and review xray crp and cbc boh 03/07/2021 Assessment 1. a fib w/ RVR 2. suspected Wernicke's encephalopathy with mild features secondary to long- standing alcoholism 3. L hip pain 4. cellulitis of L foot 5. COPD 6. depressed mood 7. anemia 8. pneumonia Plan 1. continue with current quadruple therapy for a fib rate control 2. monitor dig level before am dose 3. thoroughly discussed cessation of alcohol use and treatment option, including vivitrol 4. plan for outpatient f/u for hip injection 5. continue oral antibiotics for pneumonia and cellulitis 6. continue laba/steroid inhaler 7. give iron infusion and transition to oral iron supplements 8. plan for discharge to [facility] on 03/08/2021 9. plan to f/u with PCP following discharge
[2021-03-07] MEDS: Rivaroxaban 10 MG Tab PO SCH (14:46)
[2021-03-07] MEDS: Gabapentin 600 MG Tab PO SCH (20:36)
[2021-03-07] MEDS: Potassium Chloride 20 MEQ Tab.ER PO SCH (20:36)
[2021-03-08] MEDS: HYDROmorphone 0.5 MG/0.5 ML Syringe IVPUSH PRN ×2 (04:09→09:18)
[2021-03-08] MEDS: Pantoprazole 40 MG Tab.CR PO SCH (05:34)
[2021-03-08] MEDS: Furosemide 40 MG Tab PO SCH ×2 (05:34→14:06)
[2021-03-08] MEDS ORDERED: Magnesium Oxide 400 MG Tab PO ONE (07:17)
[2021-03-08] MEDS ORDERED: Potassium Chloride 20 MEQ Tab.ER PO ONE (07:17)
[2021-03-08] MEDS: Formoterol/Mometasone 100-5 MCG 8.8 GM Inhaler IH SCH ×2 (08:45→20:23)
[2021-03-08] MEDS ORDERED: Digoxin 125 MCG Tab PO SCH (09:00)
[2021-03-08] MEDS: Amoxicillin/Clavulanate K 875-125 MG Tab PO SCH ×2 (09:15→20:12)
[2021-03-08] MEDS: Metoprolol Tartrate 100 MG Tab PO SCH ×2 (09:15→20:12)
[2021-03-08] MEDS: Rivaroxaban 10 MG Tab PO SCH (09:16)
[2021-03-08] MEDS: Amiodarone 200 MG Tab PO SCH (09:16)
[2021-03-08] MEDS: Insulin Lispro 100 UNIT/ML 10 ML Vial SUBCUT SCH ×4 (09:16→21:19)
[2021-03-08] MEDS: Thiamine 100 MG Tab PO SCH (09:16)
[2021-03-08] MEDS: Gabapentin 300 MG Cap PO SCH (09:16)
--- NOTE | 2021-03-08 14:18 | PCM.PN ---
- General Info Date of Service: 03/08/21 Admission Dx/Problem (Free Text): chf/etoh abuse/afib rvr. Subjective Update: Denies chest pain denies sob diuresing well still having hip and foot pain - Review of Systems General: Reports: Weakness HEENT: Reports: No Symptoms Pulmonary: Reports: No Symptoms Gastrointestinal: Reports: No Symptoms Genitourinary: Reports: No Symptoms Musculoskeletal: Reports: Joint Pain Skin: Reports: No Symptoms Neurological: Reports: No Symptoms - Patient Data Vitals - Most Recent: Last Vital Signs Temp 97.5 F 03/08/21 11:50 Pulse 82 03/08/21 11:50 Resp 16 03/08/21 11:50 BP 106/57 L 03/08/21 11:50 Pulse Ox 91 L 03/08/21 11:50 Weight - Most Recent: 248 lb 4.8 oz I&O - Last 24 Hours: Intake & Output 03/07/21 03/08/21 03/08/21 22:59 06:59 14:59 Intake Total 970 800 360 Output Total 1650 Balance 970 -850 360 Lab Results Last 24 Hours: Laboratory Results - last 24 hr 03/07/21 03/07/21 03/08/21 Range/Units 17:00 22:02 05:46 WBC 7.09 (4.23-9.07) K/mm3 RBC 3.16 L (4.63-6.08) M/mm3 Hgb 8.9 L (13.7-17.5) gm/dl Hct 28.7 L (40.1-51.0) % MCV 90.8 (79.0-92.2) fl MCH 28.2 (25.7-32.2) pg MCHC 31.0 L (32.2-35.5) g/dl RDW Std Deviation 50.3 H (35.1-43.9) fL Plt Count 209 (163-337) K/mm3 MPV 9.2 L (9.4-12.3) fl Neut % (Auto) 63.6 (34.0-67.9) % Lymph % (Auto) 18.8 L (21.8-53.1) % [place] % (Auto) 13.4 H (5.3-12.2) % Eos % (Auto) 3.4 (0.8-7.0) Baso % (Auto) 0.4 (0.1-1.2) % Neut # (Auto) 4.51 (1.78-5.38) K/mm3 Lymph # (Auto) 1.33 (1.32-3.57) K/mm3 [place] # (Auto) 0.95 H (0.30-0.82) K/mm3 Eos # (Auto) 0.24 (0.04-0.54) K/mm3 Baso # (Auto) 0.03 (0.01-0.08) K/mm3 Sodium (136-145) mEq/L Potassium (3.5-5.1) mEq/L Chloride (98-107) mEq/L Carbon Dioxide (21-32) mEq/L Anion Gap (5-15) BUN (7-18) mg/dL Creatinine (0.7-1.3) mg/dL Est Cr Clr Drug Dosing mL/min Estimated GFR (MDRD) (>60) mL/min BUN/Creatinine Ratio (14-18) Glucose (70-99) mg/dL POC Glucose 138 H 155 H (70-99) mg/dL Calcium (8.5-10.1) mg/dL Magnesium (1.8-2.4) mg/dL C-Reactive Protein (<1.0) mg/dL Digoxin (0.9-2.0) ng/mL 03/08/21 03/08/21 03/08/21 Range/Units 05:46 05:46 05:46 WBC (4.23-9.07) K/mm3 RBC (4.63-6.08) M/mm3 Hgb (13.7-17.5) gm/dl Hct (40.1-51.0) % MCV (79.0-92.2) fl MCH (25.7-32.2) pg MCHC (32.2-35.5) g/dl RDW Std Deviation (35.1-43.9) fL Plt Count (163-337) K/mm3 MPV (9.4-12.3) fl Neut % (Auto) (34.0-67.9) % Lymph % (Auto) (21.8-53.1) % [place] % (Auto) (5.3-12.2) % Eos % (Auto) (0.8-7.0) Baso % (Auto) (0.1-1.2) % Neut # (Auto) (1.78-5.38) K/mm3 Lymph # (Auto) (1.32-3.57) K/mm3 [place] # (Auto) (0.30-0.82) K/mm3 Eos # (Auto) (0.04-0.54) K/mm3 Baso # (Auto) (0.01-0.08) K/mm3 Sodium 141 (136-145) mEq/L Potassium 3.8 (3.5-5.1) mEq/L Chloride 104 (98-107) mEq/L Carbon Dioxide 32 (21-32) mEq/L Anion Gap 8.8 (5-15) BUN 2 L (7-18) mg/dL Creatinine 0.7 (0.7-1.3) mg/dL Est Cr Clr Drug Dosing 107.21 mL/min Estimated GFR (MDRD) > 60 (>60) mL/min BUN/Creatinine Ratio 2.9 L (14-18) Glucose 87 (70-99) mg/dL POC Glucose (70-99) mg/dL Calcium 8.5 (8.5-10.1) mg/dL Magnesium 1.7 L (1.8-2.4) mg/dL C-Reactive Protein 8.2 H* (<1.0) mg/dL Digoxin 0.7 L (0.9-2.0) ng/mL 03/08/21 Range/Units 05:51 WBC (4.23-9.07) K/mm3 RBC (4.63-6.08) M/mm3 Hgb (13.7-17.5) gm/dl Hct (40.1-51.0) % MCV (79.0-92.2) fl MCH (25.7-32.2) pg MCHC (32.2-35.5) g/dl RDW Std Deviation (35.1-43.9) fL Plt Count (163-337) K/mm3 MPV (9.4-12.3) fl Neut % (Auto) (34.0-67.9) % Lymph % (Auto) (21.8-53.1) % [place] % (Auto) (5.3-12.2) % Eos % (Auto) (0.8-7.0) Baso % (Auto) (0.1-1.2) % Neut # (Auto) (1.78-5.38) K/mm3 Lymph # (Auto) (1.32-3.57) K/mm3 [place] # (Auto) (0.30-0.82) K/mm3 Eos # (Auto) (0.04-0.54) K/mm3 Baso # (Auto) (0.01-0.08) K/mm3 Sodium (136-145) mEq/L Potassium (3.5-5.1) mEq/L Chloride (98-107) mEq/L Carbon Dioxide (21-32) mEq/L Anion Gap (5-15) BUN (7-18) mg/dL Creatinine (0.7-1.3) mg/dL Est Cr Clr Drug Dosing mL/min Estimated GFR (MDRD) (>60) mL/min BUN/Creatinine Ratio (14-18) Glucose (70-99) mg/dL POC Glucose 80 (70-99) mg/dL Calcium (8.5-10.1) mg/dL Magnesium (1.8-2.4) mg/dL C-Reactive Protein (<1.0) mg/dL Digoxin (0.9-2.0) ng/mL Med Orders - Current: Current Medications Acetaminophen (Acetaminophen 325 Mg Tab) 650 mg PO Q4H PRN PRN Reason: Pain (Mild 1-3)/fever Last Admin: 03/05/21 07:37 Dose: 650 mg Documented by: Amoxicillin/Clavulanate Potassium (Amoxicillin/Clavulanate K 875-125 Mg Tab) 1 tab PO Q12HR DIAMANTE Stop: 03/10/21 21:01 Last Admin: 03/08/21 09:15 Dose: 1 tab Documented by: Digoxin (Digoxin 250 Mcg Tab) 250 mcg PO DAILY [facility] Furosemide (Furosemide 40 Mg Tab) 40 mg PO BIDDIURETIC DIAMANTE Last Admin: 03/08/21 14:06 Dose: 40 mg Documented by: Gabapentin (Gabapentin 600 Mg Tab) 600 mg PO BEDTIME DIAMANTE Last Admin: 03/07/21 20:36 Dose: 600 mg Documented by: Gabapentin (Gabapentin 300 Mg Cap) 300 mg PO DAILY [facility] Last Admin: 03/08/21 09:16 Dose: 300 mg Documented by: Hydromorphone HCl (Hydromorphone 0.5 Mg/0.5 Ml Syringe) 1 mg IVPUSH Q2H PRN PRN Reason: Pain (severe 7-10) Last Admin: 03/08/21 09:18 Dose: 1 mg Documented by: Insulin Human Lispro (Insulin Lispro 100 Unit/Ml 10 Ml Vial) 0 unit SUBCUT QIDACANDBED [facility]; Protocol Last Admin: 03/08/21 11:54 Dose: Not Given Documented by: Lorazepam (Lorazepam 1 Mg Tab) 1 - 2 mg PO ASDIRECTED [facility]; Protocol Last Admin: 03/05/21 17:16 Dose: 1 mg Documented by: Magnesium Hydroxide (Magnesium Hydroxide 400 Mg/5 Ml Susp 30 Ml Cup) 30 ml PO DAILY PRN PRN Reason: Constipation Last Admin: 03/05/21 02:51 Dose: 30 ml Documented by: Melatonin (Melatonin 3 Mg Tab) 6 mg PO BEDTIME PRN PRN Reason: Sleep Last Admin: 03/06/21 20:31 Dose: 6 mg Documented by: Metoprolol Tartrate (Metoprolol Tartrate 100 Mg Tab) 100 mg PO BID [facility] Last Admin: 03/08/21 09:15 Dose: 100 mg Documented by: Metoprolol Tartrate (Metoprolol Tartrate 5 Mg/5 Ml Sdv) 5 mg IVPUSH Q6H PRN PRN Reason: Arrhythmia Mometasone Furoate/Formoterol Fumar (Formoterol/Mometasone 100-5 Mcg 8.8 Gm Inhaler) 2 puff IH BID [facility] Last Admin: 03/08/21 08:45 Dose: 2 puff Documented by: Ondansetron HCl (Ondansetron 4 Mg/2 Ml Sdv) 4 mg IV Q4H PRN PRN Reason: Nausea/Vomiting Last Admin: 02/28/21 10:08 Dose: 4 mg Documented by: Oxycodone HCl (Oxycodone 5 Mg Tab) 10 mg PO Q4H PRN PRN Reason: Pain (moderate 4-6) Last Admin: 03/07/21 21:01 Dose: 10 mg Documented by: Pantoprazole Sodium (Pantoprazole 40 Mg Tab.Cr) 40 mg PO ACBREAKFAST [facility] Last Admin: 03/08/21 05:34 Dose: 40 mg Documented by: Potassium Chloride (Potassium Chloride 20 Meq Tab.Er) 40 meq PO BEDTIME [facility] Last Admin: 03/07/21 20:36 Dose: 40 meq Documented by: Rivaroxaban (Rivaroxaban 10 Mg Tab) 20 mg PO DAILY [facility] Last Admin: 03/08/21 09:16 Dose: 20 mg Documented by: Sodium Chloride (Sodium Chloride 0.9% 10 Ml Syringe) 10 ml FLUSH ASDIRECTED PRN PRN Reason: Keep Vein Open Last Admin: 03/05/21 19:49 Dose: 10 ml Documented by: Thiamine HCl (Thiamine 100 Mg Tab) 100 mg PO DAILY [facility] Last Admin: 03/08/21 09:16 Dose: 100 mg Documented by: Discontinued Medications Amiodarone HCl (Amiodarone 200 Mg Tab) 200 mg PO BID [facility] Last Admin: 03/08/21 09:16 Dose: 200 mg Documented by: Diatrizoate Meglum/Diatrizoate Sod (Diatrizoate Meglumine/Diatrizoate Sodium 37% 120 Ml Bottle) 120 ml PO ONETIME ONE Stop: 03/02/21 08:53 Last Admin: 03/02/21 09:04 Dose: Not Given Documented by: Digoxin (Digoxin 250 Mcg Tab) 250 mcg PO Q4H [facility] Stop: 03/06/21 20:00 Last Admin: 03/06/21 20:30 Dose: 250 mcg Documented by: Digoxin (Digoxin 125 Mcg Tab) 125 mcg PO DAILY [facility] Last Admin: 03/08/21 09:16 Dose: 125 mcg Documented by: Diltiazem HCl (Diltiazem 50 Mg/10 Ml Sdv) 10 mg IVPUSH ONETIME ONE Stop: 02/26/21 14:22 Last Admin: 02/26/21 14:27 Dose: 10 mg Documented by: Diltiazem HCl (Diltiazem 50 Mg/10 Ml Sdv) 10 mg IVPUSH ONETIME ONE Stop: 02/26/21 15:19 Last Admin: 02/26/21 15:22 Dose: 10 mg Documented by: Diltiazem HCl (Diltiazem 120 Mg Cap.Cd) 360 mg PO DAILY [facility] Diltiazem HCl (Diltiazem 120 Mg Cap.Cd) 120 mg PO DAILY [facility] Last Admin: 03/02/21 12:03 Dose: Not Given Documented by: Diltiazem HCl (Diltiazem Ir 30 Mg Tab) 30 mg PO Q6HR [facility] Last Admin: 03/03/21 11:30 Dose: 30 mg Documented by: Diltiazem HCl (Diltiazem 120 Mg Cap.Cd) 120 mg PO DAILY [facility] Doxycycline Hyclate (Doxycycline 100 Mg Cap) 100 mg PO BID [facility] Last Admin: 03/03/21 09:43 Dose: 100 mg Documented by: Folic Acid (Folic Acid 1 Mg Tab) 1 mg PO DAILY [facility] Stop: 03/01/21 09:01 Last Admin: 03/01/21 08:07 Dose: 1 mg Documented by: Furosemide (Furosemide 40 Mg/4 Ml Vial) 40 mg IVPUSH NOW ONE Stop: 03/01/21 09:14 Last Admin: 03/01/21 09:33 Dose: 40 mg Documented by: Furosemide (Furosemide 20 Mg/2 Ml Vial) 20 mg IVPUSH 0600,1800 [facility] Furosemide (Furosemide 40 Mg/4 Ml Vial) 40 mg IVPUSH NOW ONE Stop: 03/05/21 08:09 Last Admin: 03/05/21 08:46 Dose: 40 mg Documented by: Furosemide (Furosemide 40 Mg/4 Ml Vial) 40 mg IVPUSH NOW ONE Stop: 03/05/21 19:04 Last Admin: 03/05/21 19:49 Dose: 40 mg Documented by: Gabapentin (Gabapentin 300 Mg Cap) 300 mg PO ONETIME ONE Stop: 03/01/21 09:13 Last Admin: 03/01/21 09:33 Dose: 300 mg Documented by: Hydromorphone HCl (Hydromorphone 0.5 Mg/0.5 Ml Syringe) 0.5 mg IVPUSH Q2H PRN PRN Reason: Pain (severe 7-10) Last Admin: 03/02/21 00:54 Dose: 0.5 mg Documented by: Sodium Chloride (Normal Saline) 1,000 mls @ 150 mls/hr IV ASDIRECTED [facility] Last Admin: 02/27/21 00:46 Dose: 150 mls/hr Documented by: Sodium Chloride (Normal Saline) 1,000 mls @ 999 mls/hr IV ONETIME ONE Stop: 02/26/21 13:58 Last Admin: 02/26/21 13:08 Dose: 999 mls/hr Documented by: Diltiazem HCl 100 mg/ Sodium (Chloride) 100 mls @ 5 mls/hr IV TITRATE DI[facility]ANTE; Protocol Last Titration: 02/27/21 00:01 Dose: 0 mg/hr, 0 mls/hr Documented by: Lactated Ringer's (Ringers, Lactated) 1,000 mls @ 500 mls/hr IV .BOLUS ONE Stop: 02/26/21 18:44 Last Admin: 02/26/21 17:23 Dose: 500 mls/hr Documented by: Piperacillin Sod/Tazobactam (Sod 4.5 gm/ Sodium Chloride) 100 mls @ 25 mls/hr IV Q8H DIAMANTE Last Admin: 02/27/21 02:33 Dose: 25 mls/hr Documented by: Magnesium Sulfate/Dextrose 1 (gm/ Premix) 100 mls @ 100 mls/hr IV ONETIME ONE Stop: 02/26/21 17:59 Last Admin: 02/26/21 17:51 Dose: 100 mls/hr Documented by: Piperacillin Sod/Tazobactam (Sod 4.5 gm/ Sodium Chloride) 100 mls @ 200 mls/hr IV ONETIME ONE Stop: 02/26/21 19:29 Piperacillin Sod/Tazobactam (Sod 4.5 gm/ Sodium Chloride) 100 mls @ 200 mls/hr IV ONETIME ONE Stop: 02/26/21 20:29 Last Admin: 02/26/21 20:00 Dose: 200 mls/hr Documented by: Sodium Chloride (Normal Saline) 1,000 mls @ 500 mls/hr IV ASDIRECTED [facility] Stop: 02/26/21 23:06 Last Admin: 02/26/21 21:09 Dose: 500 mls/hr Documented by: Sodium Chloride (Sodium Chloride 0.45%) 1,000 mls @ 100 mls/hr IV ASDIRECTED [facility] Last Admin: 02/28/21 04:08 Dose: 100 mls/hr Documented by: Albumin Human 12.5 gm/ Premix 50 mls @ 50 mls/hr IV ONETIME ONE Stop: 03/01/21 13:59 Last Admin: 03/01/21 14:01 Dose: 50 mls/hr Documented by: Sodium Chloride (Normal Saline) 250 mls @ 250 mls/hr IV ONETIME ONE Stop: 03/01/21 13:59 Last Admin: 03/01/21 14:00 Dose: 250 mls/hr Documented by: Magnesium Sulfate 2 gm/ Premix 50 mls @ 25 mls/hr IV ONETIME ONE Stop: 03/01/21 18:59 Last Admin: 03/01/21 17:09 Dose: 25 mls/hr Documented by: Lactated Ringer's (Ringers, Lactated) 500 mls @ 250 mls/hr IV .BOLUS ONE Stop: 03/01/21 18:47 Last Admin: 03/01/21 17:07 Dose: 250 mls/hr Documented by: Albumin Human 12.5 gm/ Premix 50 mls @ 50 mls/hr IV ONETIME ONE Stop: 03/01/21 21:29 Last Admin: 03/01/21 20:50 Dose: 50 mls/hr Documented by: Magnesium Sulfate/Dextrose 1 (gm/ Premix) 100 mls @ 100 mls/hr IV ONETIME ONE Stop: 03/01/21 21:59 Last Admin: 03/01/21 20:34 Dose: 100 mls/hr Documented by: Sodium Chloride (Normal Saline) 100 mls @ 60 mls/hr IV ASDIRECTED [facility] Stop: 03/02/21 12:00 Last Admin: 03/02/21 09:01 Dose: 60 mls/hr Documented by: Ceftriaxone Sodium 2 gm/ (Sodium Chloride) 100 mls @ 200 mls/hr IV Q24H [facility] Last Admin: 03/02/21 16:15 Dose: 200 mls/hr Documented by: Piperacillin Sod/Tazobactam (Sod 4.5 gm/ Sodium Chloride) 100 mls @ 25 mls/hr IV Q8H [facility] Last Admin: 03/05/21 06:11 Dose: 25 mls/hr Documented by: Vancomycin HCl 1.75 gm/ Sodium (Chloride) 500 mls @ 250 mls/hr IV ONETIME ONE Stop: 03/03/21 16:59 Last Admin: 03/03/21 15:11 Dose: 250 mls/hr Documented by: Vancomycin HCl 1 gm/Vancomycin HCl 500 mg/ Sodium Chloride 500 mls @ 250 mls/hr IV Q12H [facility] Stop: 03/05/21 05:00 Last Admin: 03/05/21 02:49 Dose: 250 mls/hr Documented by: Vancomycin HCl 1.75 gm/ Sodium (Chloride) 500 mls @ 250 mls/hr IV Q12H DIAMANTE Magnesium Sulfate 2 gm/ Premix 50 mls @ 25 mls/hr IV ONETIME ONE Stop: 03/05/21 10:06 Last Admin: 03/05/21 09:05 Dose: 25 mls/hr Documented by: Magnesium Sulfate 2 gm/ Premix 50 mls @ 25 mls/hr IV ONETIME ONE Stop: 03/06/21 13:44 Last Admin: 03/06/21 12:53 Dose: 25 mls/hr Documented by: Ferric Sodium Gluconate Complex 250 mg/ Sodium Chloride 120 mls @ 60 mls/hr IV ONETIME ONE Stop: 03/07/21 16:29 Last Admin: 03/07/21 14:45 Dose: 60 mls/hr Documented by: Amiodarone HCl/Dextrose (Nexterone In Dextrose 150 Mg/100 Ml) 100 mls @ 600 mls/hr IV .BOLUS ONE; Protocol Stop: 03/08/21 13:34 Iopamidol (Iopamidol 755 Mg/Ml 100 Ml Bottle) 100 ml IVPUSH ONETIME ONE Stop: 03/02/21 08:53 Last Admin: 03/02/21 09:02 Dose: 100 ml Documented by: Lorazepam (Lorazepam 2 Mg/Ml Sdv) 1 mg IVPUSH ONETIME ONE Stop: 02/26/21 16:49 Last Admin: 02/26/21 16:52 Dose: 1 mg Documented by: Magnesium Oxide (Magnesium Oxide 400 Mg Tab) 400 mg PO ONETIME ONE Stop: 02/26/21 13:00 Last Admin: 02/26/21 13:19 Dose: 400 mg Documented by: Magnesium Oxide (Magnesium Oxide 400 Mg Tab) 800 mg PO ONETIME ONE Stop: 03/08/21 07:18 Last Admin: 03/08/21 09:15 Dose: 800 mg Documented by: Metoclopramide HCl (Metoclopramide 10 Mg/2 Ml Sdv) 5 mg IVPUSH ONETIME ONE Stop: 02/26/21 11:50 Last Admin: 02/26/21 11:57 Dose: 5 mg Documented by: Metoprolol Tartrate (Metoprolol Tartrate 5 Mg/5 Ml Sdv) 5 mg IVPUSH ONETIME ONE Stop: 02/26/21 11:48 Last Admin: 02/26/21 11:57 Dose: 5 mg Documented by: Metoprolol Tartrate (Metoprolol Tartrate 5 Mg/5 Ml Sdv) 5 mg IVPUSH ONETIME ONE Stop: 02/26/21 12:20 Last Admin: 02/26/21 12:46 Dose: 5 mg Documented by: Metoprolol Tartrate (Metoprolol Tartrate 50 Mg Tab) 75 mg PO BID [facility] Oxycodone HCl (Oxycodone 5 Mg Tab) 5 mg PO Q4H PRN PRN Reason: Pain (moderate 4-6) Last Admin: 02/28/21 09:12 Dose: 5 mg Documented by: Oxycodone HCl (Oxycodone 5 Mg Tab) 10 mg PO Q6H PRN PRN Reason: Pain (moderate 4-6) Last Admin: 03/02/21 03:29 Dose: 10 mg Documented by: Potassium Chloride (Potassium Chloride 20 Meq Tab.Er) 40 meq PO ONETIME ONE Stop: 02/26/21 13:00 Last Admin: 02/26/21 13:11 Dose: 40 meq Documented by: Potassium Chloride (Potassium Chloride 20 Meq Tab.Er) 40 meq PO ONETIME ONE Stop: 03/08/21 07:18 Last Admin: 03/08/21 09:16 Dose: 40 meq Documented by: Rivaroxaban (Rivaroxaban 10 Mg Tab) 20 mg PO DAILY [facility] Sodium Chloride (Sodium Chloride 0.9% 10 Ml Sdv) 10 ml FLUSH ONETIME ONE Stop: 03/02/21 08:53 Last Admin: 03/02/21 12:03 Dose: 10 ml Documented by: Vancomycin HCl (Pharmacy To Dose - Vancomycin) 0 dose .XX ASDIRECTED PRN PRN Reason: RX TO DOSE VANCOMYCIN Vancomycin HCl (Pharmacy To Dose - Vancomycin) 0 dose .XX ASDIRECTED PRN PRN Reason: RX TO DOSE VANCOMYCIN - Exam Quality Assessment: Supplemental Oxygen General: Alert, Oriented, No Acute Distress HEENT: EOMI, Mucous Membr. Moist/[place] Neck: Supple Lungs: Clear to Auscultation, Normal Respiratory Effort Cardiovascular: Irregular Rhythm, Tachycardia GI/Abdominal Exam: Soft, Non-Tender, No Distention Skin: Warm, Dry, Intact Neurological: No New Focal Deficit Psy/Mental Status: Alert, Normal Affect - Patient Data Lab Results Last 24 hrs: Laboratory Results - last 24 hr 03/07/21 03/07/21 03/08/21 Range/Units 17:00 22:02 05:46 WBC 7.09 (4.23-9.07) K/mm3 RBC 3.16 L (4.63-6.08) M/mm3 Hgb 8.9 L (13.7-17.5) gm/dl Hct 28.7 L (40.1-51.0) % MCV 90.8 (79.0-92.2) fl MCH 28.2 (25.7-32.2) pg MCHC 31.0 L (32.2-35.5) g/dl RDW Std Deviation 50.3 H (35.1-43.9) fL Plt Count 209 (163-337) K/mm3 MPV 9.2 L (9.4-12.3) fl Neut % (Auto) 63.6 (34.0-67.9) % Lymph % (Auto) 18.8 L (21.8-53.1) % [place] % (Auto) 13.4 H (5.3-12.2) % Eos % (Auto) 3.4 (0.8-7.0) Baso % (Auto) 0.4 (0.1-1.2) % Neut # (Auto) 4.51 (1.78-5.38) K/mm3 Lymph # (Auto) 1.33 (1.32-3.57) K/mm3 [place] # (Auto) 0.95 H (0.30-0.82) K/mm3 Eos # (Auto) 0.24 (0.04-0.54) K/mm3 Baso # (Auto) 0.03 (0.01-0.08) K/mm3 Sodium (136-145) mEq/L Potassium (3.5-5.1) mEq/L Chloride (98-107) mEq/L Carbon Dioxide (21-32) mEq/L Anion Gap (5-15) BUN (7-18) mg/dL Creatinine (0.7-1.3) mg/dL Est Cr Clr Drug Dosing mL/min Estimated GFR (MDRD) (>60) mL/min BUN/Creatinine Ratio (14-18) Glucose (70-99) mg/dL POC Glucose 138 H 155 H (70-99) mg/dL Calcium (8.5-10.1) mg/dL Magnesium (1.8-2.4) mg/dL C-Reactive Protein (<1.0) mg/dL Digoxin (0.9-2.0) ng/mL 03/08/21 03/08/21 03/08/21 Range/Units 05:46 05:46 05:46 WBC (4.23-9.07) K/mm3 RBC (4.63-6.08) M/mm3 Hgb (13.7-17.5) gm/dl Hct (40.1-51.0) % MCV (79.0-92.2) fl MCH (25.7-32.2) pg MCHC (32.2-35.5) g/dl RDW Std Deviation (35.1-43.9) fL Plt Count (163-337) K/mm3 MPV (9.4-12.3) fl Neut % (Auto) (34.0-67.9) % Lymph % (Auto) (21.8-53.1) % [place] % (Auto) (5.3-12.2) % Eos % (Auto) (0.8-7.0) Baso % (Auto) (0.1-1.2) % Neut # (Auto) (1.78-5.38) K/mm3 Lymph # (Auto) (1.32-3.57) K/mm3 [place] # (Auto) (0.30-0.82) K/mm3 Eos # (Auto) (0.04-0.54) K/mm3 Baso # (Auto) (0.01-0.08) K/mm3 Sodium 141 (136-145) mEq/L Potassium 3.8 (3.5-5.1) mEq/L Chloride 104 (98-107) mEq/L Carbon Dioxide 32 (21-32) mEq/L Anion Gap 8.8 (5-15) BUN 2 L (7-18) mg/dL Creatinine 0.7 (0.7-1.3) mg/dL Est Cr Clr Drug Dosing 107.21 mL/min Estimated GFR (MDRD) > 60 (>60) mL/min BUN/Creatinine Ratio 2.9 L (14-18) Glucose 87 (70-99) mg/dL POC Glucose (70-99) mg/dL Calcium 8.5 (8.5-10.1) mg/dL Magnesium 1.7 L (1.8-2.4) mg/dL C-Reactive Protein 8.2 H* (<1.0) mg/dL Digoxin 0.7 L (0.9-2.0) ng/mL 03/08/21 Range/Units 05:51 WBC (4.23-9.07) K/mm3 RBC (4.63-6.08) M/mm3 Hgb (13.7-17.5) gm/dl Hct (40.1-51.0) % MCV (79.0-92.2) fl MCH (25.7-32.2) pg MCHC (32.2-35.5) g/dl RDW Std Deviation (35.1-43.9) fL Plt Count (163-337) K/mm3 MPV (9.4-12.3) fl Neut % (Auto) (34.0-67.9) % Lymph % (Auto) (21.8-53.1) % [place] % (Auto) (5.3-12.2) % Eos % (Auto) (0.8-7.0) Baso % (Auto) (0.1-1.2) % Neut # (Auto) (1.78-5.38) K/mm3 Lymph # (Auto) (1.32-3.57) K/mm3 [place] # (Auto) (0.30-0.82) K/mm3 Eos # (Auto) (0.04-0.54) K/mm3 Baso # (Auto) (0.01-0.08) K/mm3 Sodium (136-145) mEq/L Potassium (3.5-5.1) mEq/L Chloride (98-107) mEq/L Carbon Dioxide (21-32) mEq/L Anion Gap (5-15) BUN (7-18) mg/dL Creatinine (0.7-1.3) mg/dL Est Cr Clr Drug Dosing mL/min Estimated GFR (MDRD) (>60) mL/min BUN/Creatinine Ratio (14-18) Glucose (70-99) mg/dL POC Glucose 80 (70-99) mg/dL Calcium (8.5-10.1) mg/dL Magnesium (1.8-2.4) mg/dL C-Reactive Protein (<1.0) mg/dL Digoxin (0.9-2.0) ng/mL Result Diagrams: 03/08/21 05:46 03/08/21 05:46 Sepsis Event Note - Evaluation Sepsis Screening Result: No Definite Risk - Focused Exam Vital Signs: Vital Signs Temp Pulse Resp BP Pulse Ox Pulse Ox 03/08/21 11:50 97.5 F 82 16 106/57 L 91 L 03/08/21 09:16 116 H 03/08/21 09:15 116 H 150/88 H 03/08/21 08:46 85 L 03/08/21 08:42 98.1 F 03/08/21 08:10 99.9 F 102 H 20 150/88 H 100 03/08/21 07:46 104 H 92 L 03/08/21 06:33 117 H 90 L 03/08/21 04:03 98.4 F 92 16 107/65 93 L - Problem List Review Problem List Initiated/Reviewed/Updated: Yes - Assessment Assessment:: 03/05/21 afebrile/irritable / vss voided x 1 last night /increased lasix this am and arthur better . p.e. tired /little weak/loose prod. cough//wheezy with talking. skin:mild pallor. lungs cough and wheeze noted bibasiler cor telemetry 120-145 while in chair . stable lbb afib . irreg reg 2/6 syst. murmur at rt 2nd ics. mod jvd. abd benign. appetite better. liver and spleen not appreciated no ascites felt. ms stable oa changes. gouty deposits dips and pips neuro aox 4 quintero/ able to sit up lab hgn low 8.2 and k stable creat 1.0 to 1.4 crp and repeat pending. chest xray fibrosis/copd and diffuse infiltrate suggests pneumonia ct scan lesion rt lower lobe small/ fibrosis/ infiltrates/copd and fibrosis assess 1//// pneumonia on day 3 antibiotics and some interval improvement. switch to p.o antibiotics anticipated. 2/// copd stable but severe. fibrosis and lesion on ct scan with hilar adenopathy which will need follow up c.t 3/// afib rvr amioderone /diltizem/ metoprolol all high dose. will monitor after am lasix . 4/// etohism. patient has not delt with this and has dx of Wernicke encephalopathy . disease/early dementia . needs to abstain form etoh totally sec now to afib but also with other complications. care issues abound . [facility] and now wants to return. [facility] placement pending acceptance. ciwa low and on low dose antidepressant and benzodiazepam. 5/// because of rt hip issues and copd and chronic etohism he cannot a ttend etoh rehab but seems ready to give up etoh with assistance. wants to try livetrol 6/// anemia check hemmoccults and follow up . on anticoagulant / check iron levels . thrombocytopenia platlets low and recheck pending . ? occult bleeding . 8// k now replaced. mag now replaced. self cares unable and unlikely to change rapidly. 9///blood sugars increased ? pre or dm2 . hip injection as o.p . wean to oral antibiotics and room air and p.o meds . sniff placemnt being arranged. boh - Plan Plan:: This is a 60M with past medical history Diastolic CHF, Type II DM, Alcoholism, Afib (on xarelto/metoprolol/diltiazem) presenting for evaluation of afib w/rvr 1. Afib w/RVR; RVR improving as withdrawal symptoms decrease 2. SIRS syndrome; r/o sepsis; tachycardia; leukocytosis; lactic acidosis; sepsis ruled out 3. acute systolic CHF exacerbation; EF mildly reduced 40-45%; unable to diurese due to hypotension; presumed infection; 4. Hx of alcoholism 5. Hx of chronic left hip pain 6. Hx of Type II DM with peripheral neuropathy 7. Obesity 8. Suspected ABRAHAN 9. Alcohol withdrawal syndrome 10. hypomagnesemia 11. Possible PNA; CT PE study negative for PE but possible infiltrate; started on doxycycline and ceftriaxone on03/02; broadened to vancomycin and zosyn on 03/03 Plan -serial lactate completed -blood cx NGTD -empiric zosyn stopped; started on doxycycline and ceftriaxone on03/02 for possible PNA; broadened to vancomycin and zosyn on 03/03 due to fever+WBC -hold metformin -increased metoprolol to 100 mg BID 02/27 -started amiodarone 200 mg BID per cardiology outpatient recs -diltiazem discontinued -tele -monitor I&O -CT left hip results showing avascular necrosis of hip; case discussed with library information technician ortho likely will need elective hip replacement; WBAT -Ortho consult 03/04 -pain control -CIWA protocol; monitor for withdrawal symptoms -PT, OT, SW consult Echo completed 03/03 showing 1. LVH 2. Moderate global hypokinesis of the LV with EF 40-45% 3. Severely dilated left atrium 4. Mild MVR 5. Mild TVR 6. RV systolic pressure elevated at 40.5 Venous doppler US lower extremities negative for DVT -03/08/21 -[facility] Recommendations given persistent Afib w/RVR -start Amio infusion loading dose; transition to 400 mg daily tomorrow -hold diltiazem -continue metoprolol -continue xarelto -continue digoxin; increased to 250 -continue diuresis -potassium and mg replacement -has outpatient EP referral -[facility] on divert Code-Full code DVT ppx-xarelto Dispo-TBD likely will need short term rehab once RVR stabilizes 03/05/21 afebrile/irritable / vss voided x 1 last night /increased lasix this am and arthur better . p.e. tired /little weak/loose prod. cough//wheezy with talking. skin:mild pallor. lungs cough and wheeze noted bibasiler cor telemetry 120-145 while in chair . stable lbb afib . irreg reg 2/6 syst. murmur at rt 2nd ics. mod jvd. abd benign. appetite better. liver and spleen not appreciated no ascites felt. ms stable oa changes. gouty deposits dips and pips neuro aox 4 quintero/ able to sit up lab hgn low 8.2 and k stable creat 1.0 to 1.4 crp and repeat pending. ciwa 5-9 range chest xray fibrosis/copd and diffuse infiltrate suggests pneumonia ct scan lesion rt lower lobe small/ fibrosis/ infiltrates/copd and fibrosis assess 1//// pneumonia on day 3 antibiotics and some interval improvement. switch to p.o antibiotics anticipated. 2/// copd stable but severe. fibrosis and lesion on ct scan with hilar adenopathy which will need follow up c.t 3/// afib rvr amioderone /diltizem/ metoprolol all high dose. will monitor after am lasix . 4/// etohism. patient has not delt with this and has dx of Wernicke encephalopathy . disease/early dementia . needs to abstain form etoh totally sec now to afib but also with other complications. care issues abound . walked [facility] from [facility] and now wants to return. [facility] placement pending acceptance. ciwa low and on low dose antidepressant and benzodiazepam. 5/// because of rt hip issues and copd and chronic etohism he cannot attend etoh rehab but seems ready to give up etoh with assistance. wants to try livetrol 6/// anemia check hemmoccults and follow up . on anticoagulant / check iron levels . thrombocytopenia platlets low and recheck pending . ? occult bleeding . 8// k now replaced. mag now replaced. self cares unable and unlikely to change rapidly. 9///blood sugars increased ? pre or dm2 . hip injection as o.p . wean to oral antibiotics and room air and p.o meds . sniff placemnt being arranged. boh 03/06/21 afebrile vss o2 on 1 liter / heart rate elavateswith any activity even talking. afib 90s at rest. no tachipnea /prod cough. lungs decreased but clear. cor ir /ir 90sno m s3/s4 abd:benign. ms :left foot warmth,pain and redness. increased with flexion of toe. no other joints involved other than degenerative changes. pedal : edema 3 plus bilateral. assess suspected werneiches encephalopathy mild with multiple features/ widthdrawl mild on admission now resolved. -neuro features of forgetting and repeating.speech not too dysarthric but thought process very concrete. -patient has remorse and regrets about life circumstances. -isolation and falling and impairment related to hip pain discussed and he is agreeable to injection of hip and rehab. he is agreeable to abstaining from etoh and wants to try vivatrol and discussed cost may not be covered by [facility]. -discussed treatment but cannot participate sec to hip and other issues. discussed copd improving and started laba /steriod inhaler. discussed afib still not rate controlled and consider adding digoxin for further rate control to amioderone/betablocker and diltiazem. -discussed pneumonia and cellulitis both seem to respond to augmentin but checking xrays left foot as red and tender and swollen. -discussed heart failure and afib and need not to cont. etoh. increased heart failure discussed. depression being treated. sec ftt discussed /treat anxiety /depression -joint pain check uric acid and review xray crp and cbc boh 03/07/2021 Assessment 1. a fib w/ RVR 2. suspected Wernicke's encephalopathy with mild features secondary to long- standing alcoholism 3. L hip pain 4. cellulitis of L foot 5. COPD 6. depressed mood 7. anemia 8. pneumonia Plan 1. continue with current quadruple therapy for a fib rate control 2. monitor dig level before am dose 3. thoroughly discussed cessation of alcohol use and treatment option, including vivitrol 4. plan for outpatient f/u for hip injection 5. continue oral antibiotics for pneumonia and cellulitis 6. continue laba/steroid inhaler 7. give iron infusion and transition to oral iron supplements 8. plan for discharge to [facility] on 03/08/2021 9. plan to f/u with PCP following discharge
[2021-03-08] MEDS: Gabapentin 600 MG Tab PO SCH (20:12)
[2021-03-08] MEDS: Potassium Chloride 20 MEQ Tab.ER PO SCH (20:12)
[2021-03-08] MEDS: oxyCODONE 5 MG Tab PO PRN (20:13)
[2021-03-09] MEDS: oxyCODONE 5 MG Tab PO PRN ×3 (00:18→21:39)
[2021-03-09] MEDS: Furosemide 40 MG Tab PO SCH (06:46)
[2021-03-09] MEDS: Pantoprazole 40 MG Tab.CR PO SCH (06:46)
[2021-03-09] MEDS: Insulin Lispro 100 UNIT/ML 10 ML Vial SUBCUT SCH ×4 (07:20→23:03)
[2021-03-09] MEDS: Formoterol/Mometasone 100-5 MCG 8.8 GM Inhaler IH SCH ×2 (08:04→21:28)
[2021-03-09] MEDS: Rivaroxaban 10 MG Tab PO SCH (08:43)
--- NOTE | 2021-03-09 08:43 | PCM.PN ---
- General Info Date of Service: 03/09/21 Admission Dx/Problem (Free Text): chf/etoh abuse/afib rvr. Subjective Update: Patient states leg pain improving diuresing well denies chest pain, palpitations on amio drip since yesterday with improved tachycardia - Review of Systems General: Reports: Weakness HEENT: Reports: No Symptoms Pulmonary: Reports: No Symptoms Cardiovascular: Reports: No Symptoms Gastrointestinal: Reports: No Symptoms Musculoskeletal: Reports: Foot Pain, Joint Pain Skin: Reports: No Symptoms Neurological: Reports: No Symptoms - Patient Data Vitals - Most Recent: Last Vital Signs Temp 97.9 F 03/09/21 04:00 Pulse 80 03/08/21 20:12 Resp 18 03/09/21 08:00 BP 105/76 03/09/21 08:00 Pulse Ox 94 L 03/09/21 08:05 Weight - Most Recent: 243 lb 14.4 oz I&O - Last 24 Hours: Intake & Output 03/08/21 03/09/21 03/09/21 22:59 06:59 14:59 Intake Total 1220 799 Output Total 1100 800 Balance 120 -1 Lab Results Last 24 Hours: Laboratory Results - last 24 hr 03/08/21 03/09/21 03/09/21 Range/Units 17:33 06:54 06:55 WBC 8.17 (4.23-9.07) K/mm3 RBC 3.25 L (4.63-6.08) M/mm3 Hgb 9.1 L (13.7-17.5) gm/dl Hct 29.3 L (40.1-51.0) % MCV 90.2 (79.0-92.2) fl MCH 28.0 (25.7-32.2) pg MCHC 31.1 L (32.2-35.5) g/dl RDW Std Deviation 50.3 H (35.1-43.9) fL Plt Count 239 (163-337) K/mm3 MPV 9.1 L (9.4-12.3) fl Neut % (Auto) 61.4 (34.0-67.9) % Lymph % (Auto) 20.4 L (21.8-53.1) % [place] % (Auto) 13.2 H (5.3-12.2) % Eos % (Auto) 4.5 (0.8-7.0) Baso % (Auto) 0.5 (0.1-1.2) % Neut # (Auto) 5.01 (1.78-5.38) K/mm3 Lymph # (Auto) 1.67 (1.32-3.57) K/mm3 [place] # (Auto) 1.08 H (0.30-0.82) K/mm3 Eos # (Auto) 0.37 (0.04-0.54) K/mm3 Baso # (Auto) 0.04 (0.01-0.08) K/mm3 Sodium (136-145) mEq/L Potassium (3.5-5.1) mEq/L Chloride (98-107) mEq/L Carbon Dioxide (21-32) mEq/L Anion Gap (5-15) BUN (7-18) mg/dL Creatinine (0.7-1.3) mg/dL Est Cr Clr Drug Dosing mL/min Estimated GFR (MDRD) (>60) mL/min BUN/Creatinine Ratio (14-18) Glucose (70-99) mg/dL POC Glucose 121 H 90 (70-99) mg/dL Calcium (8.5-10.1) mg/dL Magnesium (1.8-2.4) mg/dL 03/09/21 Range/Units 06:55 WBC (4.23-9.07) K/mm3 RBC (4.63-6.08) M/mm3 Hgb (13.7-17.5) gm/dl Hct (40.1-51.0) % MCV (79.0-92.2) fl MCH (25.7-32.2) pg MCHC (32.2-35.5) g/dl RDW Std Deviation (35.1-43.9) fL Plt Count (163-337) K/mm3 MPV (9.4-12.3) fl Neut % (Auto) (34.0-67.9) % Lymph % (Auto) (21.8-53.1) % [place] % (Auto) (5.3-12.2) % Eos % (Auto) (0.8-7.0) Baso % (Auto) (0.1-1.2) % Neut # (Auto) (1.78-5.38) K/mm3 Lymph # (Auto) (1.32-3.57) K/mm3 [place] # (Auto) (0.30-0.82) K/mm3 Eos # (Auto) (0.04-0.54) K/mm3 Baso # (Auto) (0.01-0.08) K/mm3 Sodium 140 (136-145) mEq/L Potassium 4.0 (3.5-5.1) mEq/L Chloride 104 (98-107) mEq/L Carbon Dioxide 32 (21-32) mEq/L Anion Gap 8.0 (5-15) BUN 4 L (7-18) mg/dL Creatinine 0.8 (0.7-1.3) mg/dL Est Cr Clr Drug Dosing 93.81 mL/min Estimated GFR (MDRD) > 60 (>60) mL/min BUN/Creatinine Ratio 5.0 L (14-18) Glucose 89 (70-99) mg/dL POC Glucose (70-99) mg/dL Calcium 8.5 (8.5-10.1) mg/dL Magnesium 1.8 (1.8-2.4) mg/dL Med Orders - Current: Current Medications Acetaminophen (Acetaminophen 325 Mg Tab) 650 mg PO Q4H PRN PRN Reason: Pain (Mild 1-3)/fever Last Admin: 03/05/21 07:37 Dose: 650 mg Documented by: Amiodarone HCl (Amiodarone 200 Mg Tab) 400 mg PO DAILY [facility] Amoxicillin/Clavulanate Potassium (Amoxicillin/Clavulanate K 875-125 Mg Tab) 1 tab PO Q12HR [facility] Stop: 03/10/21 21:01 Last Admin: 03/08/21 20:12 Dose: 1 tab Documented by: Digoxin (Digoxin 250 Mcg Tab) 250 mcg PO DAILY [facility] Furosemide (Furosemide 40 Mg/4 Ml Vial) 40 mg IVPUSH BID [facility] Gabapentin (Gabapentin 600 Mg Tab) 600 mg PO BEDTIME [facility] Last Admin: 03/08/21 20:12 Dose: 600 mg Documented by: Gabapentin (Gabapentin 300 Mg Cap) 300 mg PO DAILY [facility] Last Admin: 03/08/21 09:16 Dose: 300 mg Documented by: Hydromorphone HCl (Hydromorphone 0.5 Mg/0.5 Ml Syringe) 1 mg IVPUSH Q2H PRN PRN Reason: Pain (severe 7-10) Last Admin: 03/08/21 09:18 Dose: 1 mg Documented by: Insulin Human Lispro (Insulin Lispro 100 Unit/Ml 10 Ml Vial) 0 unit SUBCUT QIDACANDBED [facility]; Protocol Last Admin: 03/09/21 07:20 Dose: Not Given Documented by: Lorazepam (Lorazepam 1 Mg Tab) 1 - 2 mg PO ASDIRECTED [facility]; Protocol Last Admin: 03/05/21 17:16 Dose: 1 mg Documented by: Magnesium Hydroxide (Magnesium Hydroxide 400 Mg/5 Ml Susp 30 Ml Cup) 30 ml PO DAILY PRN PRN Reason: Constipation Last Admin: 03/05/21 02:51 Dose: 30 ml Documented by: Melatonin (Melatonin 3 Mg Tab) 6 mg PO BEDTIME PRN PRN Reason: Sleep Last Admin: 03/06/21 20:31 Dose: 6 mg Documented by: Metoprolol Tartrate (Metoprolol Tartrate 100 Mg Tab) 100 mg PO BID [facility] Last Admin: 03/08/21 20:12 Dose: 100 mg Documented by: Metoprolol Tartrate (Metoprolol Tartrate 5 Mg/5 Ml Sdv) 5 mg IVPUSH Q6H PRN PRN Reason: Arrhythmia Mometasone Furoate/Formoterol Fumar (Formoterol/Mometasone 100-5 Mcg 8.8 Gm Inhaler) 2 puff IH BID [facility] Last Admin: 03/09/21 08:04 Dose: 2 puff Documented by: Ondansetron HCl (Ondansetron 4 Mg/2 Ml Sdv) 4 mg IV Q4H PRN PRN Reason: Nausea/Vomiting Last Admin: 02/28/21 10:08 Dose: 4 mg Documented by: Oxycodone HCl (Oxycodone 5 Mg Tab) 10 mg PO Q4H PRN PRN Reason: Pain (moderate 4-6) Last Admin: 03/09/21 06:47 Dose: 10 mg Documented by: Pantoprazole Sodium (Pantoprazole 40 Mg Tab.Cr) 40 mg PO ACBREAKFAST [facility] Last Admin: 03/09/21 06:46 Dose: 40 mg Documented by: Potassium Chloride (Potassium Chloride 20 Meq Tab.Er) 40 meq PO BEDTIME [facility] Last Admin: 03/08/21 20:12 Dose: 40 meq Documented by: Rivaroxaban (Rivaroxaban 10 Mg Tab) 20 mg PO DAILY [facility] Last Admin: 03/08/21 09:16 Dose: 20 mg Documented by: Sodium Chloride (Sodium Chloride 0.9% 10 Ml Syringe) 10 ml FLUSH ASDIRECTED PRN PRN Reason: Keep Vein Open Last Admin: 03/05/21 19:49 Dose: 10 ml Documented by: Thiamine HCl (Thiamine 100 Mg Tab) 100 mg PO DAILY [facility] Last Admin: 03/08/21 09:16 Dose: 100 mg Documented by: Discontinued Medications Amiodarone HCl (Amiodarone 200 Mg Tab) 200 mg PO BID [facility] Last Admin: 03/08/21 09:16 Dose: 200 mg Documented by: Diatrizoate Meglum/Diatrizoate Sod (Diatrizoate Meglumine/Diatrizoate Sodium 37% 120 Ml Bottle) 120 ml PO ONETIME ONE Stop: 03/02/21 08:53 Last Admin: 03/02/21 09:04 Dose: Not Given Documented by: Digoxin (Digoxin 250 Mcg Tab) 250 mcg PO Q4H [facility] Stop: 03/06/21 20:00 Last Admin: 03/06/21 20:30 Dose: 250 mcg Documented by: Digoxin (Digoxin 125 Mcg Tab) 125 mcg PO DAILY [facility] Last Admin: 03/08/21 09:16 Dose: 125 mcg Documented by: Diltiazem HCl (Diltiazem 50 Mg/10 Ml Sdv) 10 mg IVPUSH ONETIME ONE Stop: 02/26/21 14:22 Last Admin: 02/26/21 14:27 Dose: 10 mg Documented by: Diltiazem HCl (Diltiazem 50 Mg/10 Ml Sdv) 10 mg IVPUSH ONETIME ONE Stop: 02/26/21 15:19 Last Admin: 02/26/21 15:22 Dose: 10 mg Documented by: Diltiazem HCl (Diltiazem 120 Mg Cap.Cd) 360 mg PO DAILY [facility] Diltiazem HCl (Diltiazem 120 Mg Cap.Cd) 120 mg PO DAILY [facility] Last Admin: 03/02/21 12:03 Dose: Not Given Documented by: Diltiazem HCl (Diltiazem Ir 30 Mg Tab) 30 mg PO Q6HR [facility] Last Admin: 03/03/21 11:30 Dose: 30 mg Documented by: Diltiazem HCl (Diltiazem 120 Mg Cap.Cd) 120 mg PO DAILY [facility] Doxycycline Hyclate (Doxycycline 100 Mg Cap) 100 mg PO BID [facility] Last Admin: 03/03/21 09:43 Dose: 100 mg Documented by: Folic Acid (Folic Acid 1 Mg Tab) 1 mg PO DAILY [facility] Stop: 03/01/21 09:01 Last Admin: 03/01/21 08:07 Dose: 1 mg Documented by: Furosemide (Furosemide 40 Mg/4 Ml Vial) 40 mg IVPUSH NOW ONE Stop: 03/01/21 09:14 Last Admin: 03/01/21 09:33 Dose: 40 mg Documented by: Furosemide (Furosemide 20 Mg/2 Ml Vial) 20 mg IVPUSH 0600,1800 [facility] Furosemide (Furosemide 40 Mg/4 Ml Vial) 40 mg IVPUSH NOW ONE Stop: 03/05/21 08:09 Last Admin: 03/05/21 08:46 Dose: 40 mg Documented by: Furosemide (Furosemide 40 Mg/4 Ml Vial) 40 mg IVPUSH NOW ONE Stop: 03/05/21 19:04 Last Admin: 03/05/21 19:49 Dose: 40 mg Documented by: Furosemide (Furosemide 40 Mg Tab) 40 mg PO BIDDIURETIC [facility] Last Admin: 03/09/21 06:46 Dose: 40 mg Documented by: Gabapentin (Gabapentin 300 Mg Cap) 300 mg PO ONETIME ONE Stop: 03/01/21 09:13 Last Admin: 03/01/21 09:33 Dose: 300 mg Documented by: Hydromorphone HCl (Hydromorphone 0.5 Mg/0.5 Ml Syringe) 0.5 mg IVPUSH Q2H PRN PRN Reason: Pain (severe 7-10) Last Admin: 03/02/21 00:54 Dose: 0.5 mg Documented by: Sodium Chloride (Normal Saline) 1,000 mls @ 150 mls/hr IV ASDIRECTED [facility] Last Admin: 02/27/21 00:46 Dose: 150 mls/hr Documented by: Sodium Chloride (Normal Saline) 1,000 mls @ 999 mls/hr IV ONETIME ONE Stop: 02/26/21 13:58 Last Admin: 02/26/21 13:08 Dose: 999 mls/hr Documented by: Diltiazem HCl 100 mg/ Sodium (Chloride) 100 mls @ 5 mls/hr IV TITRATE [facility]; Protocol Last Titration: 02/27/21 00:01 Dose: 0 mg/hr, 0 mls/hr Documented by: Lactated Ringer's (Ringers, Lactated) 1,000 mls @ 500 mls/hr IV .BOLUS ONE Stop: 02/26/21 18:44 Last Admin: 02/26/21 17:23 Dose: 500 mls/hr Documented by: Piperacillin Sod/Tazobactam (Sod 4.5 gm/ Sodium Chloride) 100 mls @ 25 mls/hr IV Q8H [facility] Last Admin: 02/27/21 02:33 Dose: 25 mls/hr Documented by: Magnesium Sulfate/Dextrose 1 (gm/ Premix) 100 mls @ 100 mls/hr IV ONETIME ONE Stop: 02/26/21 17:59 Last Admin: 02/26/21 17:51 Dose: 100 mls/hr Documented by: Piperacillin Sod/Tazobactam (Sod 4.5 gm/ Sodium Chloride) 100 mls @ 200 mls/hr IV ONETIME ONE Stop: 02/26/21 19:29 Piperacillin Sod/Tazobactam (Sod 4.5 gm/ Sodium Chloride) 100 mls @ 200 mls/hr IV ONETIME ONE Stop: 02/26/21 20:29 Last Admin: 02/26/21 20:00 Dose: 200 mls/hr Documented by: Sodium Chloride (Normal Saline) 1,000 mls @ 500 mls/hr IV ASDIRECTED [facility] Stop: 02/26/21 23:06 Last Admin: 02/26/21 21:09 Dose: 500 mls/hr Documented by: Sodium Chloride (Sodium Chloride 0.45%) 1,000 mls @ 100 mls/hr IV ASDIRECTED [facility] Last Admin: 02/28/21 04:08 Dose: 100 mls/hr Documented by: Albumin Human 12.5 gm/ Premix 50 mls @ 50 mls/hr IV ONETIME ONE Stop: 03/01/21 13:59 Last Admin: 03/01/21 14:01 Dose: 50 mls/hr Documented by: Sodium Chloride (Normal Saline) 250 mls @ 250 mls/hr IV ONETIME ONE Stop: 03/01/21 13:59 Last Admin: 03/01/21 14:00 Dose: 250 mls/hr Documented by: Magnesium Sulfate 2 gm/ Premix 50 mls @ 25 mls/hr IV ONETIME ONE Stop: 03/01/21 18:59 Last Admin: 03/01/21 17:09 Dose: 25 mls/hr Documented by: Lactated Ringer's (Ringers, Lactated) 500 mls @ 250 mls/hr IV .BOLUS ONE Stop: 03/01/21 18:47 Last Admin: 03/01/21 17:07 Dose: 250 mls/hr Documented by: Albumin Human 12.5 gm/ Premix 50 mls @ 50 mls/hr IV ONETIME ONE Stop: 03/01/21 21:29 Last Admin: 03/01/21 20:50 Dose: 50 mls/hr Documented by: Magnesium Sulfate/Dextrose 1 (gm/ Premix) 100 mls @ 100 mls/hr IV ONETIME ONE Stop: 03/01/21 21:59 Last Admin: 03/01/21 20:34 Dose: 100 mls/hr Documented by: Sodium Chloride (Normal Saline) 100 mls @ 60 mls/hr IV ASDIRECTED [facility] Stop: 03/02/21 12:00 Last Admin: 03/02/21 09:01 Dose: 60 mls/hr Documented by: Ceftriaxone Sodium 2 gm/ (Sodium Chloride) 100 mls @ 200 mls/hr IV Q24H [facility] Last Admin: 03/02/21 16:15 Dose: 200 mls/hr Documented by: Piperacillin Sod/Tazobactam (Sod 4.5 gm/ Sodium Chloride) 100 mls @ 25 mls/hr IV Q8H [facility] Last Admin: 03/05/21 06:11 Dose: 25 mls/hr Documented by: Vancomycin HCl 1.75 gm/ Sodium (Chloride) 500 mls @ 250 mls/hr IV ONETIME ONE Stop: 03/03/21 16:59 Last Admin: 03/03/21 15:11 Dose: 250 mls/hr Documented by: Vancomycin HCl 1 gm/Vancomycin HCl 500 mg/ Sodium Chloride 500 mls @ 250 mls/hr IV Q12H [facility] Stop: 03/05/21 05:00 Last Admin: 03/05/21 02:49 Dose: 250 mls/hr Documented by: Vancomycin HCl 1.75 gm/ Sodium (Chloride) 500 mls @ 250 mls/hr IV Q12H [facility] Magnesium Sulfate 2 gm/ Premix 50 mls @ 25 mls/hr IV ONETIME ONE Stop: 03/05/21 10:06 Last Admin: 03/05/21 09:05 Dose: 25 mls/hr Documented by: Magnesium Sulfate 2 gm/ Premix 50 mls @ 25 mls/hr IV ONETIME ONE Stop: 03/06/21 13:44 Last Admin: 03/06/21 12:53 Dose: 25 mls/hr Documented by: Ferric Sodium Gluconate Complex 250 mg/ Sodium Chloride 120 mls @ 60 mls/hr IV ONETIME ONE Stop: 03/07/21 16:29 Last Admin: 03/07/21 14:45 Dose: 60 mls/hr Documented by: Amiodarone HCl/Dextrose (Nexterone In Dextrose 150 Mg/100 Ml) 100 mls @ 600 mls /hr IV .BOLUS ONE; Protocol Stop: 03/08/21 13:34 Last Admin: 03/08/21 14:50 Dose: 600 mls/hr Documented by: Amiodarone HCl/Dextrose (Nexterone In Dextrose 360 Mg/200 Ml) 360 mg in 200 mls @ 33.333 mls/hr IV ASDIRECTED [facility]; Protocol Last Admin: 03/08/21 22:10 Dose: 16.7 mls/hr Documented by: Iopamidol (Iopamidol 755 Mg/Ml 100 Ml Bottle) 100 ml IVPUSH ONETIME ONE Stop: 03/02/21 08:53 Last Admin: 03/02/21 09:02 Dose: 100 ml Documented by: Lorazepam (Lorazepam 2 Mg/Ml Sdv) 1 mg IVPUSH ONETIME ONE Stop: 02/26/21 16:49 Last Admin: 02/26/21 16:52 Dose: 1 mg Documented by: Magnesium Oxide (Magnesium Oxide 400 Mg Tab) 400 mg PO ONETIME ONE Stop: 02/26/21 13:00 Last Admin: 02/26/21 13:19 Dose: 400 mg Documented by: Magnesium Oxide (Magnesium Oxide 400 Mg Tab) 800 mg PO ONETIME ONE Stop: 03/08/21 07:18 Last Admin: 03/08/21 09:15 Dose: 800 mg Documented by: Metoclopramide HCl (Metoclopramide 10 Mg/2 Ml Sdv) 5 mg IVPUSH ONETIME ONE Stop: 02/26/21 11:50 Last Admin: 02/26/21 11:57 Dose: 5 mg Documented by: Metoprolol Tartrate (Metoprolol Tartrate 5 Mg/5 Ml Sdv) 5 mg IVPUSH ONETIME ONE Stop: 02/26/21 11:48 Last Admin: 02/26/21 11:57 Dose: 5 mg Documented by: Metoprolol Tartrate (Metoprolol Tartrate 5 Mg/5 Ml Sdv) 5 mg IVPUSH ONETIME ONE Stop: 02/26/21 12:20 Last Admin: 02/26/21 12:46 Dose: 5 mg Documented by: Metoprolol Tartrate (Metoprolol Tartrate 50 Mg Tab) 75 mg PO BID [facility] Oxycodone HCl (Oxycodone 5 Mg Tab) 5 mg PO Q4H PRN PRN Reason: Pain (moderate 4-6) Last Admin: 02/28/21 09:12 Dose: 5 mg Documented by: Oxycodone HCl (Oxycodone 5 Mg Tab) 10 mg PO Q6H PRN PRN Reason: Pain (moderate 4-6) Last Admin: 03/02/21 03:29 Dose: 10 mg Documented by: Potassium Chloride (Potassium Chloride 20 Meq Tab.Er) 40 meq PO ONETIME ONE Stop: 02/26/21 13:00 Last Admin: 02/26/21 13:11 Dose: 40 meq Documented by: Potassium Chloride (Potassium Chloride 20 Meq Tab.Er) 40 meq PO ONETIME ONE Stop: 03/08/21 07:18 Last Admin: 03/08/21 09:16 Dose: 40 meq Documented by: Rivaroxaban (Rivaroxaban 10 Mg Tab) 20 mg PO DAILY [facility] Sodium Chloride (Sodium Chloride 0.9% 10 Ml Sdv) 10 ml FLUSH ONETIME ONE Stop: 03/02/21 08:53 Last Admin: 03/02/21 12:03 Dose: 10 ml Documented by: Vancomycin HCl (Pharmacy To Dose - Vancomycin) 0 dose .XX ASDIRECTED PRN PRN Reason: RX TO DOSE VANCOMYCIN Vancomycin HCl (Pharmacy To Dose - Vancomycin) 0 dose .XX ASDIRECTED PRN PRN Reason: RX TO DOSE VANCOMYCIN - Exam Quality Assessment: Supplemental Oxygen General: Alert, Oriented, No Acute Distress HEENT: EOMI, Mucous Membr. Moist/[place] Neck: Supple Lungs: Clear to Auscultation, Normal Respiratory Effort Cardiovascular: Irregular Rhythm GI/Abdominal Exam: Soft, Non-Tender, No Distention Skin: Warm, Dry, Intact Neurological: No New Focal Deficit Psy/Mental Status: Alert, Normal Affect, Normal Mood (Ext: 2+ edema improving ) - Patient Data Lab Results Last 24 hrs: Laboratory Results - last 24 hr 03/08/21 03/09/21 03/09/21 Range/Units 17:33 06:54 06:55 WBC 8.17 (4.23-9.07) K/mm3 RBC 3.25 L (4.63-6.08) M/mm3 Hgb 9.1 L (13.7-17.5) gm/dl Hct 29.3 L (40.1-51.0) % MCV 90.2 (79.0-92.2) fl MCH 28.0 (25.7-32.2) pg MCHC 31.1 L (32.2-35.5) g/dl RDW Std Deviation 50.3 H (35.1-43.9) fL Plt Count 239 (163-337) K/mm3 MPV 9.1 L (9.4-12.3) fl Neut % (Auto) 61.4 (34.0-67.9) % Lymph % (Auto) 20.4 L (21.8-53.1) % [place] % (Auto) 13.2 H (5.3-12.2) % Eos % (Auto) 4.5 (0.8-7.0) Baso % (Auto) 0.5 (0.1-1.2) % Neut # (Auto) 5.01 (1.78-5.38) K/mm3 Lymph # (Auto) 1.67 (1.32-3.57) K/mm3 [place] # (Auto) 1.08 H (0.30-0.82) K/mm3 Eos # (Auto) 0.37 (0.04-0.54) K/mm3 Baso # (Auto) 0.04 (0.01-0.08) K/mm3 Sodium (136-145) mEq/L Potassium (3.5-5.1) mEq/L Chloride (98-107) mEq/L Carbon Dioxide (21-32) mEq/L Anion Gap (5-15) BUN (7-18) mg/dL Creatinine (0.7-1.3) mg/dL Est Cr Clr Drug Dosing mL/min Estimated GFR (MDRD) (>60) mL/min BUN/Creatinine Ratio (14-18) Glucose (70-99) mg/dL POC Glucose 121 H 90 (70-99) mg/dL Calcium (8.5-10.1) mg/dL Magnesium (1.8-2.4) mg/dL 03/09/21 Range/Units 06:55 WBC (4.23-9.07) K/mm3 RBC (4.63-6.08) M/mm3 Hgb (13.7-17.5) gm/dl Hct (40.1-51.0) % MCV (79.0-92.2) fl MCH (25.7-32.2) pg MCHC (32.2-35.5) g/dl RDW Std Deviation (35.1-43.9) fL Plt Count (163-337) K/mm3 MPV (9.4-12.3) fl Neut % (Auto) (34.0-67.9) % Lymph % (Auto) (21.8-53.1) % [place] % (Auto) (5.3-12.2) % Eos % (Auto) (0.8-7.0) Baso % (Auto) (0.1-1.2) % Neut # (Auto) (1.78-5.38) K/mm3 Lymph # (Auto) (1.32-3.57) K/mm3 [place] # (Auto) (0.30-0.82) K/mm3 Eos # (Auto) (0.04-0.54) K/mm3 Baso # (Auto) (0.01-0.08) K/mm3 Sodium 140 (136-145) mEq/L Potassium 4.0 (3.5-5.1) mEq/L Chloride 104 (98-107) mEq/L Carbon Dioxide 32 (21-32) mEq/L Anion Gap 8.0 (5-15) BUN 4 L (7-18) mg/dL Creatinine 0.8 (0.7-1.3) mg/dL Est Cr Clr Drug Dosing 93.81 mL/min Estimated GFR (MDRD) > 60 (>60) mL/min BUN/Creatinine Ratio 5.0 L (14-18) Glucose 89 (70-99) mg/dL POC Glucose (70-99) mg/dL Calcium 8.5 (8.5-10.1) mg/dL Magnesium 1.8 (1.8-2.4) mg/dL Result Diagrams: 03/09/21 06:55 03/09/21 06:55 Sepsis Event Note - Evaluation Sepsis Screening Result: No Definite Risk - Focused Exam Vital Signs: Vital Signs Temp Resp BP Pulse Ox Pulse Ox 03/09/21 08:05 94 L 03/09/21 08:00 18 105/76 95 03/09/21 07:00 106/81 03/09/21 06:00 97/66 03/09/21 05:00 100/73 03/09/21 04:00 97.9 F 16 101/76 96 03/09/21 03:00 102/69 03/09/21 02:00 113/86 03/09/21 01:00 100/80 03/09/21 00:00 97.8 F 18 111/77 98 03/08/21 23:00 99/60 03/08/21 22:15 108/57 L 03/08/21 22:00 108/76 03/08/21 21:00 107/74 - Problem List Review Problem List Initiated/Reviewed/Updated: Yes - My Orders Last 24 Hours: My Active Orders 03/08/21 14:20 Admission Status [Patient Status] [ADT] Routine 03/09/21 09:00 Amiodarone [Cordarone] 400 mg PO DAILY Furosemide [Lasix] 40 mg IVPUSH BID - Assessment Assessment:: 03/05/21 afebrile/irritable / vss voided x 1 last night /increased lasix this am and arthur better . p.e. tired /little weak/loose prod. cough//wheezy with talking. skin:mild pallor. lungs cough and wheeze noted bibasiler cor telemetry 120-145 while in chair . stable lbb afib . irreg reg 2/6 syst. murmur at rt 2nd ics. mod jvd. abd benign. appetite better. liver and spleen not appreciated no ascites felt. ms stable oa changes. gouty deposits dips and pips neuro aox 4 quintero/ able to sit up lab hgn low 8.2 and k stable creat 1.0 to 1.4 crp and repeat pending. chest xray fibrosis/copd and diffuse infiltrate suggests pneumonia ct scan lesion rt lower lobe small/ fibrosis/ infiltrates/copd and fibrosis assess 1//// pneumonia on day 3 antibiotics and some interval improvement. switch to p.o antibiotics anticipated. 2/// copd stable but severe. fibrosis and lesion on ct scan with hilar adenopathy which will need follow up c.t 3/// afib rvr amioderone /diltizem/ metoprolol all high dose. will monitor after am lasix . 4/// etohism. patient has not delt with this and has dx of Wernicke encephalopathy . disease/early dementia . needs to abstain form etoh totally sec now to afib but also with other complications. care issues abound . walked away from [facility] and now wants to return. [facility] placement pending acceptance. ciwa low and on low dose antidepressant and benzodiazepam. 5/// because of rt hip issues and copd and chronic etohism he cannot attend etoh rehab but seems ready to give up etoh with assistance. wants to try livetrol 6/// anemia check hemmoccults and follow up . on anticoagulant / check iron levels . thrombocytopenia platlets low and recheck pending . ? occult bleeding . 8// k now replaced. mag now replaced. self cares unable and unlikely to change rapidly. 9///blood sugars increased ? pre or dm2 . hip injection as o.p . wean to oral antibiotics and room air and p.o meds . sniff placemnt being arranged. boh - Plan Plan:: This is a 60M with past medical history Diastolic CHF, Type II DM, Alcoholism, Afib (on xarelto/metoprolol/diltiazem) presenting for evaluation of afib w/rvr 1. Afib w/RVR; RVR improving as withdrawal symptoms decrease 2. SIRS syndrome; r/o sepsis; tachycardia; leukocytosis; lactic acidosis; sepsis ruled out 3. acute systolic CHF exacerbation; EF mildly reduced 40-45%; unable to diurese due to hypotension; presumed infection; 4. Hx of alcoholism 5. Hx of chronic left hip pain 6. Hx of Type II DM with peripheral neuropathy 7. Obesity 8. Suspected ABRAHAN 9. Alcohol withdrawal syndrome 10. hypomagnesemia 11. 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 LVH 2. Moderate global hypokinesis of the LV with EF 40-45% 3. Severely dilated left atrium 4. Mild MVR 5. Mild TVR 6. RV systolic pressure elevated at 40.5 Venous doppler US lower extremities negative for DVT -03/08/21 -[facility] Recommendations given persistent Afib w/RVR -start Amio infusion loading dose; transition to 400 mg daily tomorrow -hold diltiazem -continue metoprolol -continue xarelto -continue digoxin; increased to 250 -continue diuresis -potassium and mg replacement -has outpatient EP referral -[facility] on divert 03/09/21 -transition to amiodarone 400 mg daily -switch to IV lasix; per [facility] baseline weight around 235-240 -monitor for RVR -if RVR resolved can dc tomorrow -continue to wean oxygen down to 1 liter -discontinue CIWA protocol Code-Full code DVT ppx-xarelto Dispo-TBD likely will need short term rehab once RVR stabilizes 03/05/21 afebrile/irritable / vss voided x 1 last night /increased lasix this am and arthur better . p.e. tired /little weak/loose prod. cough//wheezy with talking. skin:mild pallor. lungs cough and wheeze noted bibasiler cor telemetry 120-145 while in chair . stable lbb afib . irreg reg 2/6 syst. murmur at rt 2nd ics. mod jvd. abd benign. appetite better. liver and spleen not appreciated no ascites felt. ms stable oa changes. gouty deposits dips and pips neuro aox 4 quintero/ able to sit up lab hgn low 8.2 and k stable creat 1.0 to 1.4 crp and repeat pending. ciwa 5-9 range chest xray fibrosis/copd and diffuse infiltrate suggests pneumonia ct scan lesion rt lower lobe small/ fibrosis/ infiltrates/copd and fibrosis assess 1//// pneumonia on day 3 antibiotics and some interval improvement. switch to p.o antibiotics anticipated. 2/// copd stable but severe. fibrosis and lesion on ct scan with hilar adenopathy which will need follow up c.t 3/// afib rvr amioderone /diltizem/ metoprolol all high dose. will monitor after am lasix . 4/// etohism. patient has not delt with this and has dx of Wernicke encephalopathy . disease/early dementia . needs to abstain form etoh totally sec now to afib but also with other complications. care issues abound . walked away from [facility] and now wants to return. [facility] placement pending acceptance. ciwa low and on low dose antidepressant and benzodiazepam. 5/// because of rt hip issues and copd and chronic etohism he cannot attend etoh rehab but seems ready to give up etoh with assistance. wants to try livetrol 6/// anemia check hemmoccults and follow up . on anticoagulant / check iron levels . thrombocytopenia platlets low and recheck pending . ? occult bleeding . 8// k now replaced. mag now replaced. self cares unable and unlikely to change rapidly. 9///blood sugars increased ? pre or dm2 . hip injection as o.p . wean to oral antibiotics and room air and p.o meds . sniff placemnt being arranged. boh 03/06/21 afebrile vss o2 on 1 liter / heart rate elavateswith any activity even talking. afib 90s at rest. no tachipnea /prod cough. lungs decreased but clear. cor ir /ir 90sno m s3/s4 abd:benign. ms :left foot warmth,pain and redness. increased with flexion of toe. no other joints involved other than degenerative changes. pedal : edema 3 plus bilateral. assess suspected werneiches encephalopathy mild with multiple features/ widthdrawl mild on admission now resolved. -neuro features of forgetting and repeating.speech not too dysarthric but thought process very concrete. -patient has remorse and regrets about life circumstances. -isolation and falling and impairment related to hip pain discussed and he is agreeable to injection of hip and rehab. he is agreeable to abstaining from etoh and wants to try vivatrol and discussed cost may not be covered by v.[facility]. -discussed treatment but cannot participate sec to hip and other issues. discussed copd improving and started laba /steriod inhaler. discussed afib still not rate controlled and consider adding digoxin for further rate control to amioderone/betablocker and diltiazem. -discussed pneumonia and cellulitis both seem to respond to augmentin but checking xrays left foot as red and tender and swollen. -discussed heart failure and afib and need not to cont. etoh. increased heart failure discussed. depression being treated. sec ftt discussed /treat anxiety /depression -joint pain check uric acid and review xray crp and cbc [facility] 03/07/2021 Assessment 1. a fib w/ RVR 2. suspected Wernicke's encephalopathy with mild features secondary to long- standing alcoholism 3. L hip pain 4. cellulitis of L foot 5. COPD 6. depressed mood 7. anemia 8. pneumonia Plan 1. continue with current quadruple therapy for a fib rate control 2. monitor dig level before am dose 3. thoroughly discussed cessation of alcohol use and treatment option, including vivitrol 4. plan for outpatient f/u for hip injection 5. continue oral antibiotics for pneumonia and cellulitis 6. continue laba/steroid inhaler 7. give iron infusion and transition to oral iron supplements 8. plan for discharge to [facility] on 03/08/2021 9. plan to f/u with PCP following discharge
[2021-03-09] MEDS: Amiodarone 200 MG Tab PO SCH (08:44)
[2021-03-09] MEDS: Amoxicillin/Clavulanate K 875-125 MG Tab PO SCH ×2 (08:44→21:33)
[2021-03-09] MEDS: Digoxin 250 MCG Tab PO SCH (08:44)
[2021-03-09] MEDS: Metoprolol Tartrate 100 MG Tab PO SCH ×2 (08:45→21:33)
[2021-03-09] MEDS: Thiamine 100 MG Tab PO SCH (08:45)
[2021-03-09] MEDS: Gabapentin 300 MG Cap PO SCH (08:48)
[2021-03-09] MEDS: Furosemide 40 MG/4 ML VIAL IVPUSH SCH ×2 (08:48→21:34)
[2021-03-09] MEDS ORDERED: Diltiazem 120 MG Cap.CD PO SCH (09:00)
[2021-03-09] MEDS: Potassium Chloride 20 MEQ Tab.ER PO SCH (21:33)
[2021-03-09] MEDS: Gabapentin 600 MG Tab PO SCH (21:34)
[2021-03-09] MEDS: Melatonin 3 MG Tab PO PRN (21:38)
[2021-03-10] MEDS: oxyCODONE 5 MG Tab PO PRN ×5 (02:45→22:12)
[2021-03-10] MEDS: Pantoprazole 40 MG Tab.CR PO SCH (06:27)
[2021-03-10] MEDS: Insulin Lispro 100 UNIT/ML 10 ML Vial SUBCUT SCH ×4 (06:49→21:37)
[2021-03-10] MEDS: Amoxicillin/Clavulanate K 875-125 MG Tab PO SCH ×2 (08:26→20:56)
[2021-03-10] MEDS: Gabapentin 300 MG Cap PO SCH (08:27)
[2021-03-10] MEDS: Rivaroxaban 10 MG Tab PO SCH (08:27)
[2021-03-10] MEDS: Metoprolol Tartrate 100 MG Tab PO SCH ×2 (08:28→20:56)
[2021-03-10] MEDS: Amiodarone 200 MG Tab PO SCH (08:29)
[2021-03-10] MEDS: Digoxin 250 MCG Tab PO SCH (08:29)
[2021-03-10] MEDS: Furosemide 40 MG/4 ML VIAL IVPUSH SCH ×2 (08:30→21:00)
[2021-03-10] MEDS: Thiamine 100 MG Tab PO SCH (08:30)
[2021-03-10] MEDS: Formoterol/Mometasone 100-5 MCG 8.8 GM Inhaler IH SCH ×2 (09:42→20:09)
--- NOTE | 2021-03-10 14:45 | PCM.PN ---
- General Info Date of Service: 03/10/21 Admission Dx/Problem (Free Text): chf/etoh abuse/afib rvr. Subjective Update: denies chest pain denies palpitations denies sob weight up 1 pound from yesterday lower extremity edema improving - Review of Systems General: Reports: Weakness HEENT: Reports: No Symptoms Pulmonary: Reports: No Symptoms Cardiovascular: Reports: No Symptoms Gastrointestinal: Reports: No Symptoms Musculoskeletal: Reports: Joint Pain Skin: Reports: No Symptoms Neurological: Reports: No Symptoms - Patient Data Vitals - Most Recent: Last Vital Signs Temp 98.8 F 03/10/21 08:00 Pulse 95 03/10/21 08:29 Resp 20 03/10/21 08:00 BP 104/83 03/10/21 08:28 Pulse Ox 93 L 03/10/21 09:38 Weight - Most Recent: 244 lb 3.2 oz I&O - Last 24 Hours: Intake & Output 03/09/21 03/10/21 03/10/21 22:59 06:59 14:59 Intake Total 1641 700 240 Output Total 1350 1400 Balance 291 -700 240 Lab Results Last 24 Hours: Laboratory Results - last 24 hr 03/09/21 03/10/21 03/10/21 Range/Units 21:47 06:47 09:00 WBC 11.43 H (4.23-9.07) K/mm3 RBC 3.84 L (4.63-6.08) M/mm3 Hgb 10.7 L D (13.7-17.5) gm/dl Hct 34.7 L (40.1-51.0) % MCV 90.4 (79.0-92.2) fl MCH 27.9 (25.7-32.2) pg MCHC 30.8 L (32.2-35.5) g/dl RDW Std Deviation 51.1 H (35.1-43.9) fL Plt Count 367 H D (163-337) K/mm3 MPV 8.9 L (9.4-12.3) fl Sodium (136-145) mEq/L Potassium (3.5-5.1) mEq/L Chloride (98-107) mEq/L Carbon Dioxide (21-32) mEq/L Anion Gap (5-15) BUN (7-18) mg/dL Creatinine (0.7-1.3) mg/dL Est Cr Clr Drug Dosing mL/min Estimated GFR (MDRD) (>60) mL/min BUN/Creatinine Ratio (14-18) Glucose (70-99) mg/dL POC Glucose 124 H 83 (70-99) mg/dL Calcium (8.5-10.1) mg/dL 03/10/21 03/10/21 Range/Units 09:00 12:04 WBC (4.23-9.07) K/mm3 RBC (4.63-6.08) M/mm3 Hgb (13.7-17.5) gm/dl Hct (40.1-51.0) % MCV (79.0-92.2) fl MCH (25.7-32.2) pg MCHC (32.2-35.5) g/dl RDW Std Deviation (35.1-43.9) fL Plt Count (163-337) K/mm3 MPV (9.4-12.3) fl Sodium 139 (136-145) mEq/L Potassium 3.7 (3.5-5.1) mEq/L Chloride 100 (98-107) mEq/L Carbon Dioxide 30 (21-32) mEq/L Anion Gap 12.7 (5-15) BUN 6 L (7-18) mg/dL Creatinine 0.9 (0.7-1.3) mg/dL Est Cr Clr Drug Dosing 83.39 mL/min Estimated GFR (MDRD) > 60 (>60) mL/min BUN/Creatinine Ratio 6.7 L (14-18) Glucose 126 H (70-99) mg/dL POC Glucose 85 (70-99) mg/dL Calcium 9.0 (8.5-10.1) mg/dL Nelson Results Last 24 Hours: Microbiology 03/03/21 14:33 Blood Culture - Final Blood - Venous 03/03/21 14:25 Blood Culture - Final Blood - Venous - Lab Draw Med Orders - Current: Current Medications Amiodarone HCl (Amiodarone 200 Mg Tab) 400 mg PO DAILY [facility] Last Admin: 03/10/21 08:29 Dose: 400 mg Documented by: Amoxicillin/Clavulanate Potassium (Amoxicillin/Clavulanate K 875-125 Mg Tab) 1 tab PO Q12HR [facility] Stop: 03/10/21 21:01 Last Admin: 03/10/21 08:26 Dose: 1 tab Documented by: Digoxin (Digoxin 250 Mcg Tab) 250 mcg PO DAILY [facility] Last Admin: 03/10/21 08:29 Dose: 250 mcg Documented by: Furosemide (Furosemide 40 Mg/4 Ml Vial) 40 mg IVPUSH BID [facility] Last Admin: 03/10/21 08:30 Dose: 40 mg Documented by: Gabapentin (Gabapentin 600 Mg Tab) 600 mg PO BEDTIME [facility] Last Admin: 03/09/21 21:34 Dose: 600 mg Documented by: Gabapentin (Gabapentin 300 Mg Cap) 300 mg PO DAILY [facility] Last Admin: 03/10/21 08:27 Dose: 300 mg Documented by: Insulin Human Lispro (Insulin Lispro 100 Unit/Ml 10 Ml Vial) 0 unit SUBCUT QIDACANDBED [facility]; Protocol Last Admin: 03/10/21 12:15 Dose: Not Given Documented by: Lorazepam (Lorazepam 1 Mg Tab) 1 - 2 mg PO ASDIRECTED [facility]; Protocol Last Admin: 03/05/21 17:16 Dose: 1 mg Documented by: Magnesium Hydroxide (Magnesium Hydroxide 400 Mg/5 Ml Susp 30 Ml Cup) 30 ml PO DAILY PRN PRN Reason: Constipation Last Admin: 03/05/21 02:51 Dose: 30 ml Documented by: Melatonin (Melatonin 3 Mg Tab) 6 mg PO BEDTIME PRN PRN Reason: Sleep Last Admin: 03/09/21 21:38 Dose: 6 mg Documented by: Metoprolol Tartrate (Metoprolol Tartrate 100 Mg Tab) 100 mg PO BID [facility] Last Admin: 03/10/21 08:28 Dose: 100 mg Documented by: Metoprolol Tartrate (Metoprolol Tartrate 5 Mg/5 Ml Sdv) 5 mg IVPUSH Q6H PRN PRN Reason: Arrhythmia Mometasone Furoate/Formoterol Fumar (Formoterol/Mometasone 100-5 Mcg 8.8 Gm Inhaler) 2 puff IH BID [facility] Last Admin: 03/10/21 09:42 Dose: 2 puff Documented by: Oxycodone HCl (Oxycodone 5 Mg Tab) 10 mg PO Q4H PRN PRN Reason: Pain (moderate 4-6) Last Admin: 03/10/21 13:59 Dose: 10 mg Documented by: Pantoprazole Sodium (Pantoprazole 40 Mg Tab.Cr) 40 mg PO ACBREAKFAST [facility] Last Admin: 03/10/21 06:27 Dose: 40 mg Documented by: Potassium Chloride (Potassium Chloride 20 Meq Tab.Er) 40 meq PO BEDTIME [facility] Last Admin: 03/09/21 21:33 Dose: 40 meq Documented by: Rivaroxaban (Rivaroxaban 10 Mg Tab) 20 mg PO DAILY [facility] Last Admin: 03/10/21 08:27 Dose: 20 mg Documented by: Sodium Chloride (Sodium Chloride 0.9% 10 Ml Syringe) 10 ml FLUSH ASDIRECTED PRN PRN Reason: Keep Vein Open Last Admin: 03/05/21 19:49 Dose: 10 ml Documented by: Thiamine HCl (Thiamine 100 Mg Tab) 100 mg PO DAILY [facility] Last Admin: 03/10/21 08:30 Dose: 100 mg Documented by: Discontinued Medications Acetaminophen (Acetaminophen 325 Mg Tab) 650 mg PO Q4H PRN PRN Reason: Pain (Mild 1-3)/fever Last Admin: 03/05/21 07:37 Dose: 650 mg Documented by: Amiodarone HCl (Amiodarone 200 Mg Tab) 200 mg PO BID [facility] Last Admin: 03/08/21 09:16 Dose: 200 mg Documented by: Diatrizoate Meglum/Diatrizoate Sod (Diatrizoate Meglumine/Diatrizoate Sodium 37% 120 Ml Bottle) 120 ml PO ONETIME ONE Stop: 03/02/21 08:53 Last Admin: 03/02/21 09:04 Dose: Not Given Documented by: Digoxin (Digoxin 250 Mcg Tab) 250 mcg PO Q4H [facility] Stop: 03/06/21 20:00 Last Admin: 03/06/21 20:30 Dose: 250 mcg Documented by: Digoxin (Digoxin 125 Mcg Tab) 125 mcg PO DAILY [facility] Last Admin: 03/08/21 09:16 Dose: 125 mcg Documented by: Diltiazem HCl (Diltiazem 50 Mg/10 Ml Sdv) 10 mg IVPUSH ONETIME ONE Stop: 02/26/21 14:22 Last Admin: 02/26/21 14:27 Dose: 10 mg Documented by: Diltiazem HCl (Diltiazem 50 Mg/10 Ml Sdv) 10 mg IVPUSH ONETIME ONE Stop: 02/26/21 15:19 Last Admin: 02/26/21 15:22 Dose: 10 mg Documented by: Diltiazem HCl (Diltiazem 120 Mg Cap.Cd) 360 mg PO DAILY [facility] Diltiazem HCl (Diltiazem 120 Mg Cap.Cd) 120 mg PO DAILY [facility] Last Admin: 03/02/21 12:03 Dose: Not Given Documented by: Diltiazem HCl (Diltiazem Ir 30 Mg Tab) 30 mg PO Q6HR [facility] Last Admin: 03/03/21 11:30 Dose: 30 mg Documented by: Diltiazem HCl (Diltiazem 120 Mg Cap.Cd) 120 mg PO DAILY [facility] Doxycycline Hyclate (Doxycycline 100 Mg Cap) 100 mg PO BID [facility] Last Admin: 03/03/21 09:43 Dose: 100 mg Documented by: Folic Acid (Folic Acid 1 Mg Tab) 1 mg PO DAILY [facility] Stop: 03/01/21 09:01 Last Admin: 03/01/21 08:07 Dose: 1 mg Documented by: Furosemide (Furosemide 40 Mg/4 Ml Vial) 40 mg IVPUSH NOW ONE Stop: 03/01/21 09:14 Last Admin: 03/01/21 09:33 Dose: 40 mg Documented by: Furosemide (Furosemide 20 Mg/2 Ml Vial) 20 mg IVPUSH 0600,1800 [facility] Furosemide (Furosemide 40 Mg/4 Ml Vial) 40 mg IVPUSH NOW ONE Stop: 03/05/21 08:09 Last Admin: 03/05/21 08:46 Dose: 40 mg Documented by: Furosemide (Furosemide 40 Mg/4 Ml Vial) 40 mg IVPUSH NOW ONE Stop: 03/05/21 19:04 Last Admin: 03/05/21 19:49 Dose: 40 mg Documented by: Furosemide (Furosemide 40 Mg Tab) 40 mg PO BIDDIURETIC [facility] Last Admin: 03/09/21 06:46 Dose: 40 mg Documented by: Gabapentin (Gabapentin 300 Mg Cap) 300 mg PO ONETIME ONE Stop: 03/01/21 09:13 Last Admin: 03/01/21 09:33 Dose: 300 mg Documented by: Hydromorphone HCl (Hydromorphone 0.5 Mg/0.5 Ml Syringe) 0.5 mg IVPUSH Q2H PRN PRN Reason: Pain (severe 7-10) Last Admin: 03/02/21 00:54 Dose: 0.5 mg Documented by: Hydromorphone HCl (Hydromorphone 0.5 Mg/0.5 Ml Syringe) 1 mg IVPUSH Q2H PRN PRN Reason: Pain (severe 7-10) Last Admin: 03/08/21 09:18 Dose: 1 mg Documented by: Sodium Chloride (Normal Saline) 1,000 mls @ 150 mls/hr IV ASDIRECTED [facility] Last Admin: 02/27/21 00:46 Dose: 150 mls/hr Documented by: Sodium Chloride (Normal Saline) 1,000 mls @ 999 mls/hr IV ONETIME ONE Stop: 02/26/21 13:58 Last Admin: 02/26/21 13:08 Dose: 999 mls/hr Documented by: Diltiazem HCl 100 mg/ Sodium (Chloride) 100 mls @ 5 mls/hr IV TITRATE [facility]; Protocol Last Titration: 02/27/21 00:01 Dose: 0 mg/hr, 0 mls/hr Documented by: Lactated Ringer's (Ringers, Lactated) 1,000 mls @ 500 mls/hr IV .BOLUS ONE Stop: 02/26/21 18:44 Last Admin: 02/26/21 17:23 Dose: 500 mls/hr Documented by: Piperacillin Sod/Tazobactam (Sod 4.5 gm/ Sodium Chloride) 100 mls @ 25 mls/hr IV Q8H [facility] Last Admin: 02/27/21 02:33 Dose: 25 mls/hr Documented by: Magnesium Sulfate/Dextrose 1 (gm/ Premix) 100 mls @ 100 mls/hr IV ONETIME ONE Stop: 02/26/21 17:59 Last Admin: 02/26/21 17:51 Dose: 100 mls/hr Documented by: Piperacillin Sod/Tazobactam (Sod 4.5 gm/ Sodium Chloride) 100 mls @ 200 mls/hr IV ONETIME ONE Stop: 02/26/21 19:29 Piperacillin Sod/Tazobactam (Sod 4.5 gm/ Sodium Chloride) 100 mls @ 200 mls/hr IV ONETIME ONE Stop: 02/26/21 20:29 Last Admin: 02/26/21 20:00 Dose: 200 mls/hr Documented by: Sodium Chloride (Normal Saline) 1,000 mls @ 500 mls/hr IV ASDIRECTED [facility] Stop: 02/26/21 23:06 Last Admin: 02/26/21 21:09 Dose: 500 mls/hr Documented by: Sodium Chloride (Sodium Chloride 0.45%) 1,000 mls @ 100 mls/hr IV ASDIRECTED [facility] Last Admin: 02/28/21 04:08 Dose: 100 mls/hr Documented by: Albumin Human 12.5 gm/ Premix 50 mls @ 50 mls/hr IV ONETIME ONE Stop: 03/01/21 13:59 Last Admin: 03/01/21 14:01 Dose: 50 mls/hr Documented by: Sodium Chloride (Normal Saline) 250 mls @ 250 mls/hr IV ONETIME ONE Stop: 03/01/21 13:59 Last Admin: 03/01/21 14:00 Dose: 250 mls/hr Documented by: Magnesium Sulfate 2 gm/ Premix 50 mls @ 25 mls/hr IV ONETIME ONE Stop: 03/01/21 18:59 Last Admin: 03/01/21 17:09 Dose: 25 mls/hr Documented by: Lactated Ringer's (Ringers, Lactated) 500 mls @ 250 mls/hr IV .BOLUS ONE Stop: 03/01/21 18:47 Last Admin: 03/01/21 17:07 Dose: 250 mls/hr Documented by: Albumin Human 12.5 gm/ Premix 50 mls @ 50 mls/hr IV ONETIME ONE Stop: 03/01/21 21:29 Last Admin: 03/01/21 20:50 Dose: 50 mls/hr Documented by: Magnesium Sulfate/Dextrose 1 (gm/ Premix) 100 mls @ 100 mls/hr IV ONETIME ONE Stop: 03/01/21 21:59 Last Admin: 03/01/21 20:34 Dose: 100 mls/hr Documented by: Sodium Chloride (Normal Saline) 100 mls @ 60 mls/hr IV ASDIRECTED [facility] Stop: 03/02/21 12:00 Last Admin: 03/02/21 09:01 Dose: 60 mls/hr Documented by: Ceftriaxone Sodium 2 gm/ (Sodium Chloride) 100 mls @ 200 mls/hr IV Q24H [facility] Last Admin: 03/02/21 16:15 Dose: 200 mls/hr Documented by: Piperacillin Sod/Tazobactam (Sod 4.5 gm/ Sodium Chloride) 100 mls @ 25 mls/hr IV Q8H [facility] Last Admin: 03/05/21 06:11 Dose: 25 mls/hr Documented by: Vancomycin HCl 1.75 gm/ Sodium (Chloride) 500 mls @ 250 mls/hr IV ONETIME ONE Stop: 03/03/21 16:59 Last Admin: 03/03/21 15:11 Dose: 250 mls/hr Documented by: Vancomycin HCl 1 gm/Vancomycin HCl 500 mg/ Sodium Chloride 500 mls @ 250 mls/hr IV Q12H [facility] Stop: 03/05/21 05:00 Last Admin: 03/05/21 02:49 Dose: 250 mls/hr Documented by: Vancomycin HCl 1.75 gm/ Sodium (Chloride) 500 mls @ 250 mls/hr IV Q12H [facility] Magnesium Sulfate 2 gm/ Premix 50 mls @ 25 mls/hr IV ONETIME ONE Stop: 03/05/21 10:06 Last Admin: 03/05/21 09:05 Dose: 25 mls/hr Documented by: Magnesium Sulfate 2 gm/ Premix 50 mls @ 25 mls/hr IV ONETIME ONE Stop: 03/06/21 13:44 Last Admin: 03/06/21 12:53 Dose: 25 mls/hr Documented by: Ferric Sodium Gluconate Complex 250 mg/ Sodium Chloride 120 mls @ 60 mls/hr IV ONETIME ONE Stop: 03/07/21 16:29 Last Admin: 03/07/21 14:45 Dose: 60 mls/hr Documented by: Amiodarone HCl/Dextrose (Nexterone In Dextrose 150 Mg/100 Ml) 100 mls @ 600 mls/hr IV .BOLUS ONE; Protocol Stop: 03/08/21 13:34 Last Admin: 03/08/21 14:50 Dose: 600 mls/hr Documented by: Amiodarone HCl/Dextrose (Nexterone In Dextrose 360 Mg/200 Ml) 360 mg in 200 mls @ 33.333 mls/hr IV ASDIRECTED [facility]; Protocol Last Admin: 03/08/21 22:10 Dose: 16.7 mls/hr Documented by: Iopamidol (Iopamidol 755 Mg/Ml 100 Ml Bottle) 100 ml IVPUSH ONETIME ONE Stop: 03/02/21 08:53 Last Admin: 03/02/21 09:02 Dose: 100 ml Documented by: Lorazepam (Lorazepam 2 Mg/Ml Sdv) 1 mg IVPUSH ONETIME ONE Stop: 02/26/21 16:49 Last Admin: 02/26/21 16:52 Dose: 1 mg Documented by: Magnesium Oxide (Magnesium Oxide 400 Mg Tab) 400 mg PO ONETIME ONE Stop: 02/26/21 13:00 Last Admin: 02/26/21 13:19 Dose: 400 mg Documented by: Magnesium Oxide (Magnesium Oxide 400 Mg Tab) 800 mg PO ONETIME ONE Stop: 03/08/21 07:18 Last Admin: 03/08/21 09:15 Dose: 800 mg Documented by: Metoclopramide HCl (Metoclopramide 10 Mg/2 Ml Sdv) 5 mg IVPUSH ONETIME ONE Stop: 02/26/21 11:50 Last Admin: 02/26/21 11:57 Dose: 5 mg Documented by: Metoprolol Tartrate (Metoprolol Tartrate 5 Mg/5 Ml Sdv) 5 mg IVPUSH ONETIME ONE Stop: 02/26/21 11:48 Last Admin: 02/26/21 11:57 Dose: 5 mg Documented by: Metoprolol Tartrate (Metoprolol Tartrate 5 Mg/5 Ml Sdv) 5 mg IVPUSH ONETIME ONE Stop: 02/26/21 12:20 Last Admin: 02/26/21 12:46 Dose: 5 mg Documented by: Metoprolol Tartrate (Metoprolol Tartrate 50 Mg Tab) 75 mg PO BID [facility] Ondansetron HCl (Ondansetron 4 Mg/2 Ml Sdv) 4 mg IV Q4H PRN PRN Reason: Nausea/Vomiting Last Admin: 02/28/21 10:08 Dose: 4 mg Documented by: Oxycodone HCl (Oxycodone 5 Mg Tab) 5 mg PO Q4H PRN PRN Reason: Pain (moderate 4-6) Last Admin: 02/28/21 09:12 Dose: 5 mg Documented by: Oxycodone HCl (Oxycodone 5 Mg Tab) 10 mg PO Q6H PRN PRN Reason: Pain (moderate 4-6) Last Admin: 03/02/21 03:29 Dose: 10 mg Documented by: Potassium Chloride (Potassium Chloride 20 Meq Tab.Er) 40 meq PO ONETIME ONE Stop: 02/26/21 13:00 Last Admin: 02/26/21 13:11 Dose: 40 meq Documented by: Potassium Chloride (Potassium Chloride 20 Meq Tab.Er) 40 meq PO ONETIME ONE Stop: 03/08/21 07:18 Last Admin: 03/08/21 09:16 Dose: 40 meq Documented by: Rivaroxaban (Rivaroxaban 10 Mg Tab) 20 mg PO DAILY [facility] Sodium Chloride (Sodium Chloride 0.9% 10 Ml Sdv) 10 ml FLUSH ONETIME ONE Stop: 03/02/21 08:53 Last Admin: 03/02/21 12:03 Dose: 10 ml Documented by: Vancomycin HCl (Pharmacy To Dose - Vancomycin) 0 dose .XX ASDIRECTED PRN PRN Reason: RX TO DOSE VANCOMYCIN Vancomycin HCl (Pharmacy To Dose - Vancomycin) 0 dose .XX ASDIRECTED PRN PRN Reason: RX TO DOSE VANCOMYCIN - Exam General: Alert, Oriented HEENT: EOMI, Mucous Membr. Moist/[place] Neck: Supple Lungs: Clear to Auscultation, Normal Respiratory Effort Cardiovascular: Irregular Rhythm GI/Abdominal Exam: Soft, Non-Tender, No Distention Back Exam: Normal Inspection Extremities: Other (1-2+ lower extremity bilateral edema) Skin: Warm, Dry Neurological: No New Focal Deficit Psy/Mental Status: Alert, Normal Affect - Patient Data Lab Results Last 24 hrs: Laboratory Results - last 24 hr 03/09/21 03/10/21 03/10/21 Range/Units 21:47 06:47 09:00 WBC 11.43 H (4.23-9.07) K/mm3 RBC 3.84 L (4.63-6.08) M/mm3 Hgb 10.7 L D (13.7-17.5) gm/dl Hct 34.7 L (40.1-51.0) % MCV 90.4 (79.0-92.2) fl MCH 27.9 (25.7-32.2) pg MCHC 30.8 L (32.2-35.5) g/dl RDW Std Deviation 51.1 H (35.1-43.9) fL Plt Count 367 H D (163-337) K/mm3 MPV 8.9 L (9.4-12.3) fl Sodium (136-145) mEq/L Potassium (3.5-5.1) mEq/L Chloride (98-107) mEq/L Carbon Dioxide (21-32) mEq/L Anion Gap (5-15) BUN (7-18) mg/dL Creatinine (0.7-1.3) mg/dL Est Cr Clr Drug Dosing mL/min Estimated GFR (MDRD) (>60) mL/min BUN/Creatinine Ratio (14-18) Glucose (70-99) mg/dL POC Glucose 124 H 83 (70-99) mg/dL Calcium (8.5-10.1) mg/dL 03/10/21 03/10/21 Range/Units 09:00 12:04 WBC (4.23-9.07) K/mm3 RBC (4.63-6.08) M/mm3 Hgb (13.7-17.5) gm/dl Hct (40.1-51.0) % MCV (79.0-92.2) fl MCH (25.7-32.2) pg MCHC (32.2-35.5) g/dl RDW Std Deviation (35.1-43.9) fL Plt Count (163-337) K/mm3 MPV (9.4-12.3) fl Sodium 139 (136-145) mEq/L Potassium 3.7 (3.5-5.1) mEq/L Chloride 100 (98-107) mEq/L Carbon Dioxide 30 (21-32) mEq/L Anion Gap 12.7 (5-15) BUN 6 L (7-18) mg/dL Creatinine 0.9 (0.7-1.3) mg/dL Est Cr Clr Drug Dosing 83.39 mL/min Estimated GFR (MDRD) > 60 (>60) mL/min BUN/Creatinine Ratio 6.7 L (14-18) Glucose 126 H (70-99) mg/dL POC Glucose 85 (70-99) mg/dL Calcium 9.0 (8.5-10.1) mg/dL Result Diagrams: 03/10/21 09:00 03/10/21 09:00 Nelson Results Last 24 hrs: Microbiology 03/03/21 14:33 Blood Culture - Final Blood - Venous 03/03/21 14:25 Blood Culture - Final Blood - Venous - Lab Draw Sepsis Event Note - Evaluation Sepsis Screening Result: No Definite Risk - Focused Exam Vital Signs: Vital Signs Temp Pulse Resp BP BP Pulse Ox Pulse Ox 03/10/21 09:38 93 L 03/10/21 09:00 94 L 03/10/21 08:29 95 03/10/21 08:28 95 104/83 03/10/21 08:00 98.8 F 20 104/83 87 L 03/10/21 04:00 101/82 - Problem List Review Problem List Initiated/Reviewed/Updated: Yes - My Orders Last 24 Hours: My Active Orders 03/10/21 Lunch Heart Healthy Diet [DIET] 03/11/21 08:00 CORONAVIRUS COVID-19 ISABELLA [[facility]] Routine - Assessment Assessment:: 03/05/21 afebrile/irritable / - Plan Plan:: This is a 60M with past medical history Diastolic CHF, Type II DM, Alcoholism, Afib (on xarelto/metoprolol/diltiazem) presenting for evaluation of afib w/rvr 1. Afib w/RVR; RVR improving as withdrawal symptoms decrease 2. SIRS syndrome; r/o sepsis; tachycardia; leukocytosis; lactic acidosis; presumed sepsis secondary to PNA (see below) 3. acute systolic CHF exacerbation; EF mildly reduced 40-45%; 4. Hx of alcoholism 5. Hx of chronic left hip pain 6. Hx of Type II DM with peripheral neuropathy 7. Obesity 8. Suspected ABRAHAN 9. Alcohol withdrawal syndrome; resolved 10. hypomagnesemia 11. Possible PNA; CT PE study negative for PE but possible infiltrate; started on doxycycline and ceftriaxone on03/02; broadened to vancomycin and zosyn on 03/03; ultimately transitioned to augmentin Plan -serial lactate completed -blood cx NGTD -empiric zosyn stopped; started on doxycycline and ceftriaxone on03/02 for possible PNA; broadened to vancomycin and zosyn on 03/03 due to fever+WBC; transitioned to augmentin -hold metformin -increased metoprolol to 100 mg BID 02/27 -started amiodarone 200 mg BID per cardiology outpatient recs -diltiazem discontinued -tele -monitor I&O -CT left hip results showing avascular necrosis of hip; case discussed with front desk supervisor ortho likely will need elective hip replacement; WBAT -Ortho consult 03/04 -pain control -CIWA protocol; monitor for withdrawal symptoms -PT, OT, SW consult Echo completed 03/03 showing 1. LVH 2. Moderate global hypokinesis of the LV with EF 40-45% 3. Severely dilated left atrium 4. Mild MVR 5. Mild TVR 6. RV systolic pressure elevated at 40.5 Venous doppler US lower extremities negative for DVT -03/08/21 -[facility] Recommendations given persistent Afib w/RVR -start Amio infusion loading dose; transition to 400 mg daily tomorrow -hold diltiazem -continue metoprolol -continue xarelto -continue digoxin; increased to 250 -continue diuresis -potassium and mg replacement -has outpatient EP referral -[facility] on divert 03/09/21 -transition to amiodarone 400 mg daily -switch to IV lasix; per [place] baseline weight around 235-240 -monitor for RVR -if RVR resolved can dc tomorrow -continue to wean oxygen down to 1 liter -discontinue CIWA protocol 03/09 -continue IV lasix -fluid restriction; low sodium diet -follow and replace electrolytes Code-Full code DVT ppx-xarelto Dispo-TBD likely will need short term rehab once RVR stabilizes and diuresis complete
[2021-03-10] MEDS: Potassium Chloride 10 MEQ Tab.ER PO SCH ×2 (16:21→20:56)
[2021-03-10] MEDS: Gabapentin 600 MG Tab PO SCH (20:56)
[2021-03-10] MEDS: Melatonin 3 MG Tab PO PRN (21:00)
[2021-03-11] MEDS: Pantoprazole 40 MG Tab.CR PO SCH (05:23)
[2021-03-11] MEDS: oxyCODONE 5 MG Tab PO PRN ×2 (05:28→13:40)
[2021-03-11] MEDS: Insulin Lispro 100 UNIT/ML 10 ML Vial SUBCUT SCH ×2 (06:18→11:56)
[2021-03-11] MEDS ORDERED: Magnesium Sulfate/Water 2 GM in Premix Bag 1 BAG IV ONE (07:55)
[2021-03-11] MEDS: Amiodarone 200 MG Tab PO SCH (08:14)
[2021-03-11] MEDS: Potassium Chloride 10 MEQ Tab.ER PO SCH (08:15)
[2021-03-11] MEDS: Gabapentin 300 MG Cap PO SCH (08:15)
[2021-03-11] MEDS: Metoprolol Tartrate 100 MG Tab PO SCH (08:15)
[2021-03-11] MEDS: Rivaroxaban 10 MG Tab PO SCH (08:16)
[2021-03-11] MEDS: Digoxin 250 MCG Tab PO SCH (08:16)
[2021-03-11] MEDS: Thiamine 100 MG Tab PO SCH (08:16)
[2021-03-11] MEDS: Formoterol/Mometasone 100-5 MCG 8.8 GM Inhaler IH SCH (08:28)
[2021-03-11] MEDS ORDERED: Furosemide 40 MG Tab PO SCH (09:00)
--- NOTE | 2021-03-11 10:55 | PCM.DCSUM1 ---
Discharge Summary - Hospital Course HPI Initial Comments: MICHEL This is a 60M with PMHx of Atrial Fibrillation (on xarelto +metoprolol), T2DM (on metformin), HFpEF, alcoholism presenting for evaluation of afib w/RVR. the patient recently left halfway. He presented to clinic today and was referred to ED because he was noted to be tachycardic. The patient had been drinking alcohol to help manage chronic left hip pain. He denies chest pain, sob, nausea, vomiting, abdominal pain. Denies chest pressure. In the ED the patient was noted to be in Afib w/RVR. He was given IV metoprolol and started on diltiazem infusion. His lactate was elevated at 3.2. HOSPITAL COURSE This is a 60M with past medical history Diastolic CHF, Type II DM, Alcoholism, Afib (on xarelto/metoprolol/diltiazem) presenting for evaluation of afib w/rvr 1. Afib w/RVR; 2. presumed sepsis secondary to PNA (see below) tachycardia; leukocytosis; lactic acidosis; 3. acute systolic CHF exacerbation; EF mildly reduced 40-45%; 4. Hx of alcoholism 5. Hx of chronic left hip pain 6. Hx of Type II DM with peripheral neuropathy 7. Obesity 8. Suspected ABRAHAN 9. Alcohol withdrawal syndrome; resolved 10. hypomagnesemia 11. Possible PNA; CT PE study negative for PE but possible infiltrate; started on doxycycline and ceftriaxone on03/02; broadened to vancomycin and zosyn on 03/03; ultimately transitioned to augmentin 12. 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 LVH 2. Moderate global hypokinesis of the LV with EF 40-45% 3. Severely dilated left atrium 4. Mild MVR 5. Mild TVR 6. RV systolic pressure elevated at 40.5 Venous doppler US lower extremities negative for DVT -03/08/21 -[facility] Recommendations given persistent Afib w/RVR -started Amio infusion loading dose; transition to 400 mg daily -hold diltiazem -continue metoprolol -continue xarelto -continue digoxin; increased to 250 -continue diuresis -potassium and mg replacement -has outpatient EP referral -[facility] on divert 03/09/21 -transition to amiodarone 400 mg daily -switch to IV lasix; per [facility] baseline weight around 235-240 -monitor for RVR -if RVR resolved can dc tomorrow -continue to wean oxygen down to 1 liter -discontinue CIWA protocol 03/09 -continue IV lasix -fluid restriction; low sodium diet -follow and replace electrolytes 03/10-03/11; completed IV diuresis weight decreased from 255->238 Discharging to Short term rehab Needs outpatient PCP and Cardiology follow up Should have CBC, BMP, Mg, dig levels checked in 5 days Diagnosis: Stroke: No - Discharge Data Discharge Date: 03/11/21 Discharge Disposition: DC/Tfer to SNF 03 Condition: Good - Referral to Home Health Primary Care Physician: Geneva Gutiérrez MD - Patient Summary/Data Consults: Consultations 02/26/21 17:19 Consult to Physical Therapy [PT Evaluation and Treatment] [CONS] Routine 03/02/21 07:26 Consult to Orthopedics [CONS] Routine - Patient Instructions Diet: Heart Healthy Diet Fluid Restriction: 2000 mL Activity: As Tolerated Notify Provider of: Fever, Nausea and/or Vomiting Other/Special Instructions: Please have your clinic check the following blood tests: a basic metabolic panel (BMP), Magnesium, and digoxin level in 5 days - Discharge Plan *PRESCRIPTION DRUG MONITORING PROGRAM REVIEWED*: Yes *COPY OF PRESCRIPTION DRUG MONITORING REPORT IN PATIENT MCKENZIE: Not Applicable Prescriptions/Med Rec: Amiodarone [Cordarone] 400 mg PO DAILY #30 tab Digoxin 250 mcg PO DAILY #15 tablet Mometasone/Formoterol [Dulera 100 Mcg/5 Mcg Inhaler] 8.8 gm IH BID #1 hfa.aer.ad Furosemide [Lasix] 60 mg PO DAILY #90 tab Metoprolol Tartrate 100 mg PO BID #60 tablet Gabapentin [Neurontin] 300 mg PO TID #60 cap oxyCODONE 5 mg PO Q6H PRN #15 tab PRN Reason: Pain (Severe 7-10) Potassium Chloride 20 meq PO DAILY #15 tablet.er Pantoprazole Sodium [Protonix] 40 mg PO DAILY #30 tablet. Home Medications: Home Meds Folic Acid 1 mg PO DAILY 09/26/17 [History] Thiamine [Vitamin B-1] 200 mg PO DAILY 09/26/17 [History] Cholecalciferol (Vitamin D3) [Vitamin D] 5,000 unit PO DAILY 01/09/19 [History] Multivitamin [Multivitamins] 1 each PO DAILY 01/09/19 [History] Rivaroxaban [Xarelto] 20 mg PO DAILY 01/09/19 [History] atorvaSTATin [Lipitor] 40 mg PO BEDTIME 01/09/19 [History] metFORMIN HCl [Metformin HCl] 500 mg PO BID 07/25/19 [History] Acetaminophen [Tylenol] 650 mg PO Q4H PRN #20 tablet 02/10/21 [Rx] Magnesium Oxide 800 mg PO BID #50 tablet 02/10/21 [Rx] Melatonin 6 mg PO BEDTIME PRN #20 tablet 02/10/21 [Rx] Amiodarone [Cordarone] 400 mg PO DAILY #30 tab 03/11/21 [Rx] Digoxin 250 mcg PO DAILY #15 tablet 03/11/21 [Rx] Furosemide [Lasix] 60 mg PO DAILY #90 tab 03/11/21 [Rx] Gabapentin [Neurontin] 300 mg PO TID #60 cap 03/11/21 [Rx] Metoprolol Tartrate 100 mg PO BID #60 tablet 03/11/21 [Rx] Mometasone/Formoterol [Dulera 100 Mcg/5 Mcg Inhaler] 8.8 gm IH BID #1 hfa.aer.ad 03/11/21 [Rx] Pantoprazole Sodium [Protonix] 40 mg PO DAILY #30 tablet. 03/11/21 [Rx] Potassium Chloride 20 meq PO DAILY #15 tablet.er 03/11/21 [Rx] oxyCODONE 5 mg PO Q6H PRN #15 tab 03/11/21 [Rx] Oxygen Therapy Mode: Nasal Cannula Oxygen Flow Rate (L/min): 1 Maintain SpO2% greater than: 92 Patient Handouts: Alcohol Use Disorder, Alcohol Intoxication, [id number], Atrial Fibrillation, [id number] Referrals: Dieter Cordova MD [Physician] - 04/02/21 9:30 am (This appt. is for injection in the left hip Please arrive at 9:10, please bring Photo ID, insurance and list of medication) Carlos Moulton [Ordering Only Provider] - 07/07/21 12:00 pm (appt is in [place] [facility] time please arrive at 11:30, Cardiology electro-physiolgy) Fatmeeh Monk MD [Ordering Only Provider] - 04/02/21 2:40 pm (Cardiology appt. This appt. is in [place]. appt. time is [facility], Please arrive at 2:10 ) Isaiah White MD [Ordering Only Provider] - 03/16/21 11:30 am - Discharge Summary/Plan Comment DC Time >30 min.: Yes (35 minutes) Total # of Minutes for Discharge Time: 35 minutes - Patient Data Vitals - Most Recent: Last Vital Signs Temp 98.2 F 03/11/21 08:12 Pulse 112 H 03/11/21 08:16 Resp 16 03/11/21 08:12 BP 101/81 03/11/21 08:15 Pulse Ox 83 L 03/11/21 08:28 Weight - Most Recent: 238 lb 3.2 oz I&O - Last 24 hours: Intake & Output 03/10/21 03/11/21 03/11/21 22:59 06:59 14:59 Intake Total 420 300 Output Total 850 Balance 420 -550 Lab Results - Last 24 hrs: Laboratory Results - last 24 hr 03/06/21 03/10/21 03/10/21 Range/Units 06:15 12:04 16:39 WBC (4.23-9.07) K/mm3 RBC (4.63-6.08) M/mm3 Hgb (13.7-17.5) gm/dl Hct (40.1-51.0) % MCV (79.0-92.2) fl MCH (25.7-32.2) pg MCHC (32.2-35.5) g/dl RDW Std Deviation (35.1-43.9) fL Plt Count (163-337) K/mm3 MPV (9.4-12.3) fl Sodium (136-145) mEq/L Potassium (3.5-5.1) mEq/L Chloride (98-107) mEq/L Carbon Dioxide (21-32) mEq/L Anion Gap (5-15) BUN (7-18) mg/dL Creatinine (0.7-1.3) mg/dL Est Cr Clr Drug Dosing mL/min Estimated GFR (MDRD) (>60) mL/min BUN/Creatinine Ratio (14-18) Glucose (70-99) mg/dL POC Glucose 85 115 H (70-99) mg/dL Calcium (8.5-10.1) mg/dL Magnesium (1.8-2.4) mg/dL Digoxin (0.9-2.0) ng/mL IIb/IIIa IgG Ab Negative (Negative) Anti-Plt GP Ia/IIa Negative (Negative) Ib/IX IgG Ab Negative (Negative) Anti-Plt GP IV Negative (Negative) HLA Class I Antibody Negative (Negative) SARS-CoV-2 RNA (ISABELLA) (NEGATIVE) 03/10/21 03/11/21 03/11/21 Range/Units 21:17 05:23 06:00 WBC (4.23-9.07) K/mm3 RBC (4.63-6.08) M/mm3 Hgb (13.7-17.5) gm/dl Hct (40.1-51.0) % MCV (79.0-92.2) fl MCH (25.7-32.2) pg MCHC (32.2-35.5) g/dl RDW Std Deviation (35.1-43.9) fL Plt Count (163-337) K/mm3 MPV (9.4-12.3) fl Sodium (136-145) mEq/L Potassium (3.5-5.1) mEq/L Chloride (98-107) mEq/L Carbon Dioxide (21-32) mEq/L Anion Gap (5-15) BUN (7-18) mg/dL Creatinine (0.7-1.3) mg/dL Est Cr Clr Drug Dosing mL/min Estimated GFR (MDRD) (>60) mL/min BUN/Creatinine Ratio (14-18) Glucose (70-99) mg/dL POC Glucose 125 H 81 (70-99) mg/dL Calcium (8.5-10.1) mg/dL Magnesium (1.8-2.4) mg/dL Digoxin (0.9-2.0) ng/mL IIb/IIIa IgG Ab (Negative) Anti-Plt GP Ia/IIa (Negative) Ib/IX IgG Ab (Negative) Anti-Plt GP IV (Negative) HLA Class I Antibody (Negative) SARS-CoV-2 RNA (ISABELLA) Negative (NEGATIVE) 03/11/21 03/11/21 03/11/21 Range/Units 07:02 07:02 07:02 WBC 10.41 H (4.23-9.07) K/mm3 RBC 3.47 L (4.63-6.08) M/mm3 Hgb 9.6 L (13.7-17.5) gm/dl Hct 31.5 L (40.1-51.0) % MCV 90.8 (79.0-92.2) fl MCH 27.7 (25.7-32.2) pg MCHC 30.5 L (32.2-35.5) g/dl RDW Std Deviation 51.3 H (35.1-43.9) fL Plt Count 330 (163-337) K/mm3 MPV 8.7 L (9.4-12.3) fl Sodium 138 (136-145) mEq/L Potassium 4.1 (3.5-5.1) mEq/L Chloride 100 (98-107) mEq/L Carbon Dioxide 31 (21-32) mEq/L Anion Gap 11.1 (5-15) BUN 9 (7-18) mg/dL Creatinine 0.9 (0.7-1.3) mg/dL Est Cr Clr Drug Dosing 83.39 mL/min Estimated GFR (MDRD) > 60 (>60) mL/min BUN/Creatinine Ratio 10.0 L (14-18) Glucose 91 (70-99) mg/dL POC Glucose (70-99) mg/dL Calcium 8.4 L (8.5-10.1) mg/dL Magnesium 1.6 L (1.8-2.4) mg/dL Digoxin 1.0 (0.9-2.0) ng/mL IIb/IIIa IgG Ab (Negative) Anti-Plt GP Ia/IIa (Negative) Ib/IX IgG Ab (Negative) Anti-Plt GP IV (Negative) HLA Class I Antibody (Negative) SARS-CoV-2 RNA (ISABELLA) (NEGATIVE) Med Orders - Current: Current Medications Amiodarone HCl (Amiodarone 200 Mg Tab) 400 mg PO DAILY [facility] Last Admin: 03/11/21 08:14 Dose: 400 mg Documented by: Digoxin (Digoxin 250 Mcg Tab) 250 mcg PO DAILY [facility] Last Admin: 03/11/21 08:16 Dose: 250 mcg Documented by: Furosemide (Furosemide 40 Mg Tab) 60 mg PO DAILY [facility] Last Admin: 03/11/21 09:57 Dose: 60 mg Documented by: Gabapentin (Gabapentin 600 Mg Tab) 600 mg PO BEDTIME [facility] Last Admin: 03/10/21 20:56 Dose: 600 mg Documented by: Gabapentin (Gabapentin 300 Mg Cap) 300 mg PO DAILY [facility] Last Admin: 03/11/21 08:15 Dose: 300 mg Documented by: Insulin Human Lispro (Insulin Lispro 100 Unit/Ml 10 Ml Vial) 0 unit SUBCUT QIDACANDBED [facility]; Protocol Last Admin: 03/11/21 06:18 Dose: Not Given Documented by: Lorazepam (Lorazepam 1 Mg Tab) 1 - 2 mg PO ASDIRECTED [facility]; Protocol Last Admin: 03/05/21 17:16 Dose: 1 mg Documented by: Magnesium Hydroxide (Magnesium Hydroxide 400 Mg/5 Ml Susp 30 Ml Cup) 30 ml PO DAILY PRN PRN Reason: Constipation Last Admin: 03/05/21 02:51 Dose: 30 ml Documented by: Melatonin (Melatonin 3 Mg Tab) 6 mg PO BEDTIME PRN PRN Reason: Sleep Last Admin: 03/10/21 21:00 Dose: 6 mg Documented by: Metoprolol Tartrate (Metoprolol Tartrate 100 Mg Tab) 100 mg PO BID [facility] Last Admin: 03/11/21 08:15 Dose: 100 mg Documented by: Metoprolol Tartrate (Metoprolol Tartrate 5 Mg/5 Ml Sdv) 5 mg IVPUSH Q6H PRN PRN Reason: Arrhythmia Mometasone Furoate/Formoterol Fumar (Formoterol/Mometasone 100-5 Mcg 8.8 Gm Inhaler) 2 puff IH BID [facility] Last Admin: 03/11/21 08:28 Dose: 2 puff Documented by: Oxycodone HCl (Oxycodone 5 Mg Tab) 10 mg PO Q4H PRN PRN Reason: Pain (moderate 4-6) Last Admin: 03/11/21 05:28 Dose: 10 mg Documented by: Pantoprazole Sodium (Pantoprazole 40 Mg Tab.Cr) 40 mg PO ACBREAKFAST [facility] Last Admin: 03/11/21 05:23 Dose: 40 mg Documented by: Potassium Chloride (Potassium Chloride 10 Meq Tab.Er) 30 meq PO BID [facility] Last Admin: 03/11/21 08:15 Dose: 30 meq Documented by: Rivaroxaban (Rivaroxaban 10 Mg Tab) 20 mg PO DAILY [facility] Last Admin: 03/11/21 08:16 Dose: 20 mg Documented by: Sodium Chloride (Sodium Chloride 0.9% 10 Ml Syringe) 10 ml FLUSH ASDIRECTED PRN PRN Reason: Keep Vein Open Last Admin: 03/05/21 19:49 Dose: 10 ml Documented by: Thiamine HCl (Thiamine 100 Mg Tab) 100 mg PO DAILY [facility] Last Admin: 03/11/21 08:16 Dose: 100 mg Documented by: Discontinued Medications Acetaminophen (Acetaminophen 325 Mg Tab) 650 mg PO Q4H PRN PRN Reason: Pain (Mild 1-3)/fever Last Admin: 03/05/21 07:37 Dose: 650 mg Documented by: Amiodarone HCl (Amiodarone 200 Mg Tab) 200 mg PO BID [facility] Last Admin: 03/08/21 09:16 Dose: 200 mg Documented by: Amoxicillin/Clavulanate Potassium (Amoxicillin/Clavulanate K 875-125 Mg Tab) 1 tab PO Q12HR [facility] Stop: 03/10/21 21:01 Last Admin: 03/10/21 20:56 Dose: 1 tab Documented by: Diatrizoate Meglum/Diatrizoate Sod (Diatrizoate Meglumine/Diatrizoate Sodium 37% 120 Ml Bottle) 120 ml PO ONETIME ONE Stop: 03/02/21 08:53 Last Admin: 03/02/21 09:04 Dose: Not Given Documented by: Digoxin (Digoxin 250 Mcg Tab) 250 mcg PO Q4H [facility] Stop: 03/06/21 20:00 Last Admin: 03/06/21 20:30 Dose: 250 mcg Documented by: Digoxin (Digoxin 125 Mcg Tab) 125 mcg PO DAILY [facility] Last Admin: 03/08/21 09:16 Dose: 125 mcg Documented by: Diltiazem HCl (Diltiazem 50 Mg/10 Ml Sdv) 10 mg IVPUSH ONETIME ONE Stop: 02/26/21 14:22 Last Admin: 02/26/21 14:27 Dose: 10 mg Documented by: Diltiazem HCl (Diltiazem 50 Mg/10 Ml Sdv) 10 mg IVPUSH ONETIME ONE Stop: 02/26/21 15:19 Last Admin: 02/26/21 15:22 Dose: 10 mg Documented by: Diltiazem HCl (Diltiazem 120 Mg Cap.Cd) 360 mg PO DAILY [facility] Diltiazem HCl (Diltiazem 120 Mg Cap.Cd) 120 mg PO DAILY [facility] Last Admin: 03/02/21 12:03 Dose: Not Given Documented by: Diltiazem HCl (Diltiazem Ir 30 Mg Tab) 30 mg PO Q6HR [facility] Last Admin: 03/03/21 11:30 Dose: 30 mg Documented by: Diltiazem HCl (Diltiazem 120 Mg Cap.Cd) 120 mg PO DAILY [facility] Doxycycline Hyclate (Doxycycline 100 Mg Cap) 100 mg PO BID [facility] Last Admin: 03/03/21 09:43 Dose: 100 mg Documented by: Folic Acid (Folic Acid 1 Mg Tab) 1 mg PO DAILY [facility] Stop: 03/01/21 09:01 Last Admin: 03/01/21 08:07 Dose: 1 mg Documented by: Furosemide (Furosemide 40 Mg/4 Ml Vial) 40 mg IVPUSH NOW ONE Stop: 03/01/21 09:14 Last Admin: 03/01/21 09:33 Dose: 40 mg Documented by: Furosemide (Furosemide 20 Mg/2 Ml Vial) 20 mg IVPUSH 0600,1800 [facility] Furosemide (Furosemide 40 Mg/4 Ml Vial) 40 mg IVPUSH NOW ONE Stop: 03/05/21 08:09 Last Admin: 03/05/21 08:46 Dose: 40 mg Documented by: Furosemide (Furosemide 40 Mg/4 Ml Vial) 40 mg IVPUSH NOW ONE Stop: 03/05/21 19:04 Last Admin: 03/05/21 19:49 Dose: 40 mg Documented by: Furosemide (Furosemide 40 Mg Tab) 40 mg PO BIDDIURETIC [facility] Last Admin: 03/09/21 06:46 Dose: 40 mg Documented by: Furosemide (Furosemide 40 Mg/4 Ml Vial) 40 mg IVPUSH BID DIAMANTE Last Admin: 03/10/21 21:00 Dose: 40 mg Documented by: Gabapentin (Gabapentin 300 Mg Cap) 300 mg PO ONETIME ONE Stop: 03/01/21 09:13 Last Admin: 03/01/21 09:33 Dose: 300 mg Documented by: Hydromorphone HCl (Hydromorphone 0.5 Mg/0.5 Ml Syringe) 0.5 mg IVPUSH Q2H PRN PRN Reason: Pain (severe 7-10) Last Admin: 03/02/21 00:54 Dose: 0.5 mg Documented by: Hydromorphone HCl (Hydromorphone 0.5 Mg/0.5 Ml Syringe) 1 mg IVPUSH Q2H PRN PRN Reason: Pain (severe 7-10) Last Admin: 03/08/21 09:18 Dose: 1 mg Documented by: Sodium Chloride (Normal Saline) 1,000 mls @ 150 mls/hr IV ASDIRECTED [facility] Last Admin: 02/27/21 00:46 Dose: 150 mls/hr Documented by: Sodium Chloride (Normal Saline) 1,000 mls @ 999 mls/hr IV ONETIME ONE Stop: 02/26/21 13:58 Last Admin: 02/26/21 13:08 Dose: 999 mls/hr Documented by: Diltiazem HCl 100 mg/ Sodium (Chloride) 100 mls @ 5 mls/hr IV TITRATE [facility]; Protocol Last Titration: 02/27/21 00:01 Dose: 0 mg/hr, 0 mls/hr Documented by: Lactated Ringer's (Ringers, Lactated) 1,000 mls @ 500 mls/hr IV .BOLUS ONE Stop: 02/26/21 18:44 Last Admin: 02/26/21 17:23 Dose: 500 mls/hr Documented by: Piperacillin Sod/Tazobactam (Sod 4.5 gm/ Sodium Chloride) 100 mls @ 25 mls/hr IV Q8H [facility] Last Admin: 02/27/21 02:33 Dose: 25 mls/hr Documented by: Magnesium Sulfate/Dextrose 1 (gm/ Premix) 100 mls @ 100 mls/hr IV ONETIME ONE Stop: 02/26/21 17:59 Last Admin: 02/26/21 17:51 Dose: 100 mls/hr Documented by: Piperacillin Sod/Tazobactam (Sod 4.5 gm/ Sodium Chloride) 100 mls @ 200 mls/hr IV ONETIME ONE Stop: 02/26/21 19:29 Piperacillin Sod/Tazobactam (Sod 4.5 gm/ Sodium Chloride) 100 mls @ 200 mls/hr IV ONETIME ONE Stop: 02/26/21 20:29 Last Admin: 02/26/21 20:00 Dose: 200 mls/hr Documented by: Sodium Chloride (Normal Saline) 1,000 mls @ 500 mls/hr IV ASDIRECTED [facility] Stop: 02/26/21 23:06 Last Admin: 02/26/21 21:09 Dose: 500 mls/hr Documented by: Sodium Chloride (Sodium Chloride 0.45%) 1,000 mls @ 100 mls/hr IV ASDIRECTED [facility] Last Admin: 02/28/21 04:08 Dose: 100 mls/hr Documented by: Albumin Human 12.5 gm/ Premix 50 mls @ 50 mls/hr IV ONETIME ONE Stop: 03/01/21 13:59 Last Admin: 03/01/21 14:01 Dose: 50 mls/hr Documented by: Sodium Chloride (Normal Saline) 250 mls @ 250 mls/hr IV ONETIME ONE Stop: 03/01/21 13:59 Last Admin: 03/01/21 14:00 Dose: 250 mls/hr Documented by: Magnesium Sulfate 2 gm/ Premix 50 mls @ 25 mls/hr IV ONETIME ONE Stop: 03/01/21 18:59 Last Admin: 03/01/21 17:09 Dose: 25 mls/hr Documented by: Lactated Ringer's (Ringers, Lactated) 500 mls @ 250 mls/hr IV .BOLUS ONE Stop: 03/01/21 18:47 Last Admin: 03/01/21 17:07 Dose: 250 mls/hr Documented by: Albumin Human 12.5 gm/ Premix 50 mls @ 50 mls/hr IV ONETIME ONE Stop: 03/01/21 21:29 Last Admin: 03/01/21 20:50 Dose: 50 mls/hr Documented by: Magnesium Sulfate/Dextrose 1 (gm/ Premix) 100 mls @ 100 mls/hr IV ONETIME ONE Stop: 03/01/21 21:59 Last Admin: 03/01/21 20:34 Dose: 100 mls/hr Documented by: Sodium Chloride (Normal Saline) 100 mls @ 60 mls/hr IV ASDIRECTED [facility] Stop: 03/02/21 12:00 Last Admin: 03/02/21 09:01 Dose: 60 mls/hr Documented by: Ceftriaxone Sodium 2 gm/ (Sodium Chloride) 100 mls @ 200 mls/hr IV Q24H [facility] Last Admin: 03/02/21 16:15 Dose: 200 mls/hr Documented by: Piperacillin Sod/Tazobactam (Sod 4.5 gm/ Sodium Chloride) 100 mls @ 25 mls/hr IV Q8H [facility] Last Admin: 03/05/21 06:11 Dose: 25 mls/hr Documented by: Vancomycin HCl 1.75 gm/ Sodium (Chloride) 500 mls @ 250 mls/hr IV ONETIME ONE Stop: 03/03/21 16:59 Last Admin: 03/03/21 15:11 Dose: 250 mls/hr Documented by: Vancomycin HCl 1 gm/Vancomycin HCl 500 mg/ Sodium Chloride 500 mls @ 250 mls/hr IV Q12H [facility] Stop: 03/05/21 05:00 Last Admin: 03/05/21 02:49 Dose: 250 mls/hr Documented by: Vancomycin HCl 1.75 gm/ Sodium (Chloride) 500 mls @ 250 mls/hr IV Q12H [facility] Magnesium Sulfate 2 gm/ Premix 50 mls @ 25 mls/hr IV ONETIME ONE Stop: 03/05/21 10:06 Last Admin: 03/05/21 09:05 Dose: 25 mls/hr Documented by: Magnesium Sulfate 2 gm/ Premix 50 mls @ 25 mls/hr IV ONETIME ONE Stop: 03/06/21 13:44 Last Admin: 03/06/21 12:53 Dose: 25 mls/hr Documented by: Ferric Sodium Gluconate Complex 250 mg/ Sodium Chloride 120 mls @ 60 mls/hr IV ONETIME ONE Stop: 03/07/21 16:29 Last Admin: 03/07/21 14:45 Dose: 60 mls/hr Documented by: Amiodarone HCl/Dextrose (Nexterone In Dextrose 150 Mg/100 Ml) 100 mls @ 600 mls/hr IV .BOLUS ONE; Protocol Stop: 03/08/21 13:34 Last Admin: 03/08/21 14:50 Dose: 600 mls/hr Documented by: Amiodarone HCl/Dextrose (Nexterone In Dextrose 360 Mg/200 Ml) 360 mg in 200 mls @ 33.333 mls/hr IV ASDIRECTED DIAMANTE; Protocol Last Admin: 03/08/21 22:10 Dose: 16.7 mls/hr Documented by: Magnesium Sulfate 2 gm/ Premix 50 mls @ 25 mls/hr IV ONETIME ONE Stop: 03/11/21 09:54 Last Admin: 03/11/21 08:10 Dose: 25 mls/hr Documented by: Iopamidol (Iopamidol 755 Mg/Ml 100 Ml Bottle) 100 ml IVPUSH ONETIME ONE Stop: 03/02/21 08:53 Last Admin: 03/02/21 09:02 Dose: 100 ml Documented by: Lorazepam (Lorazepam 2 Mg/Ml Sdv) 1 mg IVPUSH ONETIME ONE Stop: 02/26/21 16:49 Last Admin: 02/26/21 16:52 Dose: 1 mg Documented by: Magnesium Oxide (Magnesium Oxide 400 Mg Tab) 400 mg PO ONETIME ONE Stop: 02/26/21 13:00 Last Admin: 02/26/21 13:19 Dose: 400 mg Documented by: Magnesium Oxide (Magnesium Oxide 400 Mg Tab) 800 mg PO ONETIME ONE Stop: 03/08/21 07:18 Last Admin: 03/08/21 09:15 Dose: 800 mg Documented by: Metoclopramide HCl (Metoclopramide 10 Mg/2 Ml Sdv) 5 mg IVPUSH ONETIME ONE Stop: 02/26/21 11:50 Last Admin: 02/26/21 11:57 Dose: 5 mg Documented by: Metoprolol Tartrate (Metoprolol Tartrate 5 Mg/5 Ml Sdv) 5 mg IVPUSH ONETIME ONE Stop: 02/26/21 11:48 Last Admin: 02/26/21 11:57 Dose: 5 mg Documented by: Metoprolol Tartrate (Metoprolol Tartrate 5 Mg/5 Ml Sdv) 5 mg IVPUSH ONETIME ONE Stop: 02/26/21 12:20 Last Admin: 02/26/21 12:46 Dose: 5 mg Documented by: Metoprolol Tartrate (Metoprolol Tartrate 50 Mg Tab) 75 mg PO BID [facility] Ondansetron HCl (Ondansetron 4 Mg/2 Ml Sdv) 4 mg IV Q4H PRN PRN Reason: Nausea/Vomiting Last Admin: 02/28/21 10:08 Dose: 4 mg Documented by: Oxycodone HCl (Oxycodone 5 Mg Tab) 5 mg PO Q4H PRN PRN Reason: Pain (moderate 4-6) Last Admin: 02/28/21 09:12 Dose: 5 mg Documented by: Oxycodone HCl (Oxycodone 5 Mg Tab) 10 mg PO Q6H PRN PRN Reason: Pain (moderate 4-6) Last Admin: 03/02/21 03:29 Dose: 10 mg Documented by: Potassium Chloride (Potassium Chloride 20 Meq Tab.Er) 40 meq PO ONETIME ONE Stop: 02/26/21 13:00 Last Admin: 02/26/21 13:11 Dose: 40 meq Documented by: Potassium Chloride (Potassium Chloride 20 Meq Tab.Er) 40 meq PO BEDTIME DIAMANTE Last Admin: 03/09/21 21:33 Dose: 40 meq Documented by: Potassium Chloride (Potassium Chloride 20 Meq Tab.Er) 40 meq PO ONETIME ONE Stop: 03/08/21 07:18 Last Admin: 03/08/21 09:16 Dose: 40 meq Documented by: Rivaroxaban (Rivaroxaban 10 Mg Tab) 20 mg PO DAILY [facility] Sodium Chloride (Sodium Chloride 0.9% 10 Ml Sdv) 10 ml FLUSH ONETIME ONE Stop: 03/02/21 08:53 Last Admin: 03/02/21 12:03 Dose: 10 ml Documented by: Vancomycin HCl (Pharmacy To Dose - Vancomycin) 0 dose .XX ASDIRECTED PRN PRN Reason: RX TO DOSE VANCOMYCIN Vancomycin HCl (Pharmacy To Dose - Vancomycin) 0 dose .XX ASDIRECTED PRN PRN Reason: RX TO DOSE VANCOMYCIN - Exam Quality Assessment: Reports: Supplemental Oxygen General: Reports: Alert, Oriented HEENT: Reports: EOMI, Mucous Membr. Moist/[place] Neck: Reports: Supple Lungs: Reports: Clear to Auscultation, Normal Respiratory Effort Cardiovascular: Reports: Irregular Rhythm GI/Abdominal Exam: Soft, Non-Tender, No Distention Back Exam: Reports: Normal Inspection Extremities: Normal Inspection, Non-Tender Skin: Reports: Warm, Dry, Intact Neurological: Reports: No New Focal Deficit Psy/Mental Status: Reports: Alert, Normal Affect, Normal Mood *Q Meaningful Use (DIS) - VTE *Q VTE Criteria *Q: 2
[2021-03-11 12:38] VITALS: BP 101/70; PULSE 77
== END 2021-03-11 15:00 | DRG 308 ==
LOC: JD.ED 11:15 → JD.ICU 16:13 → UNDOADMIN 16:13 → JD.ICU 02-28 07:48 → JD.MS 02-28 18:34 → JD.ICU 03-04 19:51 → JD.MS 03-07 12:08 → JD.ICU 03-08 14:20
PROVIDERS: ADMIT Hospitalist; ATTEND Hospitalist
DX: I48.91 Unspecified atrial fibrillation (principal); F10.10 Alcohol abuse, uncomplicated; J18.9 Pneumonia, unspecified organism; J96.01 Acute respiratory failure with hypoxia; I50.23 Acute on chronic systolic (congestive) heart failure; I10 Essential (primary) hypertension; J44.9 Chronic obstructive pulmonary disease, unspecified; A41.89 Other specified sepsis; E11.9 Type 2 diabetes mellitus without complications; F10.239 Alcohol dependence with withdrawal, unspecified; M87.9 Osteonecrosis, unspecified; J44.0 Chronic obstructive pulmonary disease with (acute) lower respiratory infection; Z20.822 Contact with and (suspected) exposure to COVID-19; E51.2 Wernicke's encephalopathy; L03.116 Cellulitis of left lower limb; R65.10 Systemic inflammatory response syndrome (SIRS) of non-infectious origin without acute organ dysfunction; I11.0 Hypertensive heart disease with heart failure; E83.42 Hypomagnesemia; M16.12 Unilateral primary osteoarthritis, left hip; D69.6 Thrombocytopenia, unspecified; G47.33 Obstructive sleep apnea (adult) (pediatric); E11.42 Type 2 diabetes mellitus with diabetic polyneuropathy; I08.1 Rheumatic disorders of both mitral and tricuspid valves; E78.00 Pure hypercholesterolemia, unspecified; E66.9 Obesity, unspecified; F32.9 Major depressive disorder, single episode, unspecified; Y90.0 Blood alcohol level of less than 20 mg/100 ml; K21.9 Gastro-esophageal reflux disease without esophagitis; Z79.899 Other long term (current) drug therapy; Z79.84 Long term (current) use of oral hypoglycemic drugs; Z79.01 Long term (current) use of anticoagulants; Z87.442 Personal history of urinary calculi; Z87.891 Personal history of nicotine dependence
CPT/HCPCS: 36415; 71045; 80053; 80307; 83605; 83735; 83880; 84443; 84484; 85025; 86140; 93005; 96374; 96375; 96376; 99285; A9270 ×2; J1815; J2765; J3490 ×5; J7030 ×3; 71046; 71046-26; 71275; 71275-26; 73620-26-LT; 73620-LT; 73700-26-LT; 73700-LT; 80048; 80162; 80202; 80306; 81001; 82272; 82728; 82947; 83036; 83540; 84132; 84550; 85027; 86022; 87040; 93010; 93306; 93970; 93970-26; 94640; 94667; 94668; 94761; 97110-GP; 97116-GP; 97162-GP; 97530-GP; 99220; 99226; 99232; 99233; 99239; J0282; J0696; J1170; J1940; J2060; J2405; J2543; J2916; J3370; J3475; J7040; J7050; J7120; P9047; Q9963; Q9967; U0002

== ENCOUNTER 2022-03-14 12:30 | Emergency (ER) | payer OTHER, MEDICAID ==
[2022-03-14 12:57] VITALS: BP 93/77; PULSE 137
[2022-03-14] MEDS ORDERED: Acetaminophen/HYDROcodone 325-5 MG Tab PO ONE (13:42)
== END 2022-03-14 15:15 | disposition home or self-care (01) ==
LOC: JD.ED 12:30
DX: M25.562 Pain in left knee (principal); M79.605 Pain in left leg; I10 Essential (primary) hypertension; E11.9 Type 2 diabetes mellitus without complications; I48.91 Unspecified atrial fibrillation; K21.9 Gastro-esophageal reflux disease without esophagitis; E78.00 Pure hypercholesterolemia, unspecified; E66.9 Obesity, unspecified; Z68.41 Body mass index [BMI] 40.0-44.9, adult; Z79.899 Other long term (current) drug therapy
CPT/HCPCS: 73502-26-LT; 73502-LT; 73564-26-LT; 73564-LT; 99283; A9270-GY

== ENCOUNTER 2022-03-22 15:51 | Inpatient (IN) | payer OTHER ==
[2022-03-22] MEDS ORDERED: Potassium Chloride 20 MEQ Tab.ER PO ONE (18:50)
[2022-03-22] MEDS ORDERED: Piperacillin/Tazobactam 4.5 GM in Sodium Chloride 0.9% 100 ML IV ONE (19:04)
[2022-03-22] MEDS ORDERED: Magnesium Sulfate/Water 2 GM in Premix Bag 1 BAG IV ONE (19:52)
[2022-03-22] MEDS ORDERED: LORazepam 2 MG/ML SDV IVPUSH ONE (19:58)
[2022-03-22] MEDS ORDERED: Ondansetron 4 MG/2 ML SDV IVPUSH PRN (20:04)
[2022-03-22] MEDS ORDERED: Thiamine 100 MG Tab PO SCH (21:00)
[2022-03-22] MEDS: Formoterol/Mometasone 100-5 MCG 8.8 GM Inhaler IH SCH (21:22)
[2022-03-22] MEDS: Potassium Chloride 10 MEQ in Premix Bag 1 BAG IV SCH ×3 (21:31→23:35)
[2022-03-22] MEDS: Metoprolol Succinate 50 MG Tab.ER PO SCH (21:40)
[2022-03-22] MEDS ORDERED: Magnesium Oxide 400 MG Tab PO ONE (21:45)
[2022-03-22] MEDS ORDERED: Sodium Chloride 0.9% 500 ML IV ONE (22:07)
[2022-03-22] MEDS ORDERED: Potassium Chloride 100 ML ONE (22:34)
[2022-03-22] MEDS ORDERED: Insulin Lispro 100 Unit/ML 3 ML KwikPen SUBCUT ONE (23:15)
[2022-03-23] MEDS: Potassium Chloride 10 MEQ in Premix Bag 1 BAG IV SCH ×5 (00:44→12:52)
[2022-03-23] MEDS: Formoterol/Mometasone 100-5 MCG 8.8 GM Inhaler IH SCH ×2 (05:57→20:40)
[2022-03-23] MEDS ORDERED: Pantoprazole 40 MG Tab.CR PO SCH (06:00)
[2022-03-23] MEDS ORDERED: Carboxymethylcellulose Sodium 1% Ophth Gel 15 ML Bottle EYEBOTH PRN ×2 (07:22→09:25)
[2022-03-23] MEDS ORDERED: Carboxymethylcellulose Sodium 1% Ophth Gel 15 ML Bottle EYELF PRN (07:23)
[2022-03-23] MEDS ORDERED: Insulin Lispro 100 Unit/ML 3 ML KwikPen SUBCUT SCH ×2 (07:30)
[2022-03-23] MEDS: Insulin Regular, Human 100 Units/ML 3 ML Vial SUBCUT SCH ×3 (08:50→18:23)
[2022-03-23] MEDS: Folic Acid 1 MG Tab PO SCH (08:51)
[2022-03-23] MEDS: oxyCODONE 5 MG Tab PO PRN ×2 (08:52→17:26)
[2022-03-23] MEDS: Metoprolol Succinate 50 MG Tab.ER PO SCH (08:52)
[2022-03-23] MEDS: Cholecalciferol (Vitamin D3) 5,000 UNIT Tab PO SCH (08:53)
[2022-03-23] MEDS: Magnesium Oxide 400 MG Tab PO SCH (08:53)
[2022-03-23] MEDS ORDERED: Tamsulosin 0.4 MG Cap.ER PO SCH (09:00)
[2022-03-23] MEDS ORDERED: Rivaroxaban 10 MG Tab PO SCH (09:00)
[2022-03-23] MEDS ORDERED: Furosemide 20 MG/2 ML VIAL IVPUSH ONE (09:30)
[2022-03-23] MEDS: Piperacillin/Tazobactam 4.5 GM in Sodium Chloride 0.9% 100 ML IV SCH ×2 (10:23→17:27)
[2022-03-23] MEDS: LORazepam 2 MG/ML SDV IVPUSH PRN ×2 (11:31→23:04)
[2022-03-23] MEDS ORDERED: Naltrexone 50 MG Tab PO SCH (12:00)
[2022-03-23] MEDS ORDERED: Diltiazem 120 MG Cap.CD PO SCH (13:00)
[2022-03-23] MEDS: Potassium Chloride 20 MEQ Tab.ER PO SCH (13:08)
[2022-03-23] MEDS: Amiodarone 200 MG Tab PO SCH (13:09)
[2022-03-23] MEDS: Thiamine 100 MG Tab PO SCH (13:09)
[2022-03-23] MEDS: Diclofenac Sodium 1% Gel 100 GM Tube TOP SCH ×2 (13:16→20:52)
[2022-03-23] MEDS: Cyclobenzaprine 10 MG Tab PO PRN (15:33)
[2022-03-23] MEDS: Gabapentin 600 MG Tab PO SCH ×2 (15:33→20:49)
[2022-03-23] MEDS: metFORMIN 500 MG Tab PO SCH (17:26)
[2022-03-23] MEDS ORDERED: Magnesium Oxide 400 MG Tab PO ONE (18:50)
[2022-03-23] MEDS: Albuterol/Ipratropium 3.0-0.5 MG/3 ML Neb Soln NEB PRN (20:40)
[2022-03-23] MEDS: atorvaSTATin 40 MG Tab PO SCH (20:49)
[2022-03-23] MEDS ORDERED: Metoprolol Succinate 50 MG Tab.ER PO SCH (21:00)
[2022-03-24] MEDS: Piperacillin/Tazobactam 4.5 GM in Sodium Chloride 0.9% 100 ML IV SCH ×3 (01:18→17:25)
[2022-03-24] MEDS: Albuterol/Ipratropium 3.0-0.5 MG/3 ML Neb Soln NEB PRN ×4 (02:00→20:23)
[2022-03-24] MEDS: oxyCODONE 5 MG Tab PO PRN ×2 (03:15→09:08)
[2022-03-24] MEDS: Formoterol/Mometasone 100-5 MCG 8.8 GM Inhaler IH SCH ×2 (05:23→20:23)
[2022-03-24] MEDS: metFORMIN 500 MG Tab PO SCH ×2 (06:24→17:19)
[2022-03-24] MEDS: Pantoprazole 40 MG Tab.CR PO SCH (06:24)
[2022-03-24] MEDS: Rivaroxaban 10 MG Tab PO SCH (08:35)
[2022-03-24] MEDS: Folic Acid 1 MG Tab PO SCH (08:45)
[2022-03-24] MEDS: Magnesium Oxide 400 MG Tab PO SCH (08:45)
[2022-03-24] MEDS: Tamsulosin 0.4 MG Cap.ER PO SCH (08:45)
[2022-03-24] MEDS: Thiamine 100 MG Tab PO SCH (08:45)
[2022-03-24] MEDS: Potassium Chloride 20 MEQ Tab.ER PO SCH (08:45)
[2022-03-24] MEDS: Amiodarone 200 MG Tab PO SCH (08:45)
[2022-03-24] MEDS: Gabapentin 600 MG Tab PO SCH ×3 (08:45→23:50)
[2022-03-24] MEDS: methylPREDNISolone Sodium Succinate 125 MG/2 ML SDV IVPUSH SCH ×3 (08:46→21:21)
[2022-03-24] MEDS: Cholecalciferol (Vitamin D3) 5,000 UNIT Tab PO SCH (08:46)
[2022-03-24] MEDS ORDERED: Furosemide 40 MG/4 ML VIAL IVPUSH ONE (09:00)
[2022-03-24] MEDS: Diclofenac Sodium 1% Gel 100 GM Tube TOP SCH ×2 (09:04→23:11)
[2022-03-24] MEDS: Insulin Regular, Human 100 Units/ML 3 ML Vial SUBCUT SCH ×3 (09:16→18:05)
[2022-03-24] MEDS ORDERED: LORazepam 2 MG/ML SDV IVPUSH PRN (10:04)
[2022-03-24] MEDS: LORazepam 2 MG/ML SDV IVPUSH PRN ×6 (11:35→23:05)
[2022-03-24] MEDS: Naltrexone 50 MG Tab PO SCH (11:39)
[2022-03-24] MEDS ORDERED: LORazepam 2 MG/ML SDV IVPUSH ONE (13:33)
[2022-03-24] MEDS: Metoprolol Succinate 50 MG Tab.ER PO SCH (23:50)
[2022-03-24] MEDS: atorvaSTATin 40 MG Tab PO SCH (23:50)
[2022-03-25] MEDS: Albuterol/Ipratropium 3.0-0.5 MG/3 ML Neb Soln NEB PRN ×6 (00:42→21:16)
[2022-03-25] MEDS: LORazepam 2 MG/ML SDV IVPUSH PRN ×8 (01:18→20:05)
[2022-03-25] MEDS: methylPREDNISolone Sodium Succinate 125 MG/2 ML SDV IVPUSH SCH ×4 (02:46→20:23)
[2022-03-25] MEDS: Piperacillin/Tazobactam 4.5 GM in Sodium Chloride 0.9% 100 ML IV SCH ×3 (03:48→20:20)
[2022-03-25] MEDS: Formoterol/Mometasone 100-5 MCG 8.8 GM Inhaler IH SCH ×2 (05:49→21:14)
[2022-03-25] MEDS: Pantoprazole 40 MG Tab.CR PO SCH (08:05)
[2022-03-25] MEDS: metFORMIN 500 MG Tab PO SCH ×2 (08:05→16:52)
[2022-03-25] MEDS: Insulin Regular, Human 100 Units/ML 3 ML Vial SUBCUT SCH ×3 (08:33→18:19)
[2022-03-25] MEDS ORDERED: Furosemide 20 MG/2 ML VIAL IVPUSH SCH (10:30)
[2022-03-25] MEDS: Tamsulosin 0.4 MG Cap.ER PO SCH (12:04)
[2022-03-25] MEDS: Amiodarone 200 MG Tab PO SCH (12:04)
[2022-03-25] MEDS: Diltiazem 120 MG Cap.CD PO SCH (12:04)
[2022-03-25] MEDS: Magnesium Oxide 400 MG Tab PO SCH (12:04)
[2022-03-25] MEDS: Folic Acid 1 MG Tab PO SCH (12:04)
[2022-03-25] MEDS: Thiamine 100 MG Tab PO SCH (12:05)
[2022-03-25] MEDS: Gabapentin 600 MG Tab PO SCH ×3 (12:05→20:23)
[2022-03-25] MEDS: Metoprolol Succinate 50 MG Tab.ER PO SCH ×2 (12:05→20:23)
[2022-03-25] MEDS: Potassium Chloride 20 MEQ Tab.ER PO SCH (12:05)
[2022-03-25] MEDS: Diclofenac Sodium 1% Gel 100 GM Tube TOP SCH ×2 (12:06→20:28)
[2022-03-25] MEDS: Cholecalciferol (Vitamin D3) 5,000 UNIT Tab PO SCH (12:06)
[2022-03-25] MEDS: Rivaroxaban 10 MG Tab PO SCH (12:07)
[2022-03-25] MEDS: Naltrexone 50 MG Tab PO SCH (12:49)
[2022-03-25] MEDS: oxyCODONE 5 MG Tab PO PRN ×2 (16:52→21:05)
[2022-03-25] MEDS: atorvaSTATin 40 MG Tab PO SCH (20:23)
[2022-03-26] MEDS: LORazepam 2 MG/ML SDV IVPUSH PRN ×8 (00:01→22:35)
[2022-03-26] MEDS: oxyCODONE 5 MG Tab PO PRN ×3 (01:05→20:31)
[2022-03-26] MEDS: Cyclobenzaprine 10 MG Tab PO PRN ×2 (01:40→22:50)
[2022-03-26] MEDS: methylPREDNISolone Sodium Succinate 125 MG/2 ML SDV IVPUSH SCH ×4 (01:42→19:37)
[2022-03-26] MEDS: Albuterol/Ipratropium 3.0-0.5 MG/3 ML Neb Soln NEB PRN ×4 (02:39→20:13)
[2022-03-26] MEDS: Piperacillin/Tazobactam 4.5 GM in Sodium Chloride 0.9% 100 ML IV SCH ×3 (03:59→19:39)
[2022-03-26] MEDS: Formoterol/Mometasone 100-5 MCG 8.8 GM Inhaler IH SCH ×2 (05:35→20:12)
[2022-03-26] MEDS: Pantoprazole 40 MG Tab.CR PO SCH (06:51)
[2022-03-26] MEDS: metFORMIN 500 MG Tab PO SCH ×2 (06:51→16:33)
[2022-03-26] MEDS: Insulin Regular, Human 100 Units/ML 3 ML Vial SUBCUT SCH ×4 (07:50→18:02)
[2022-03-26] MEDS: Gabapentin 600 MG Tab PO SCH ×3 (08:42→20:02)
[2022-03-26] MEDS: Potassium Chloride 20 MEQ Tab.ER PO SCH (08:42)
[2022-03-26] MEDS: Magnesium Oxide 400 MG Tab PO SCH (08:43)
[2022-03-26] MEDS: Amiodarone 200 MG Tab PO SCH (08:43)
[2022-03-26] MEDS: Thiamine 100 MG Tab PO SCH (08:43)
[2022-03-26] MEDS: Folic Acid 1 MG Tab PO SCH (08:43)
[2022-03-26] MEDS: Tamsulosin 0.4 MG Cap.ER PO SCH (08:44)
[2022-03-26] MEDS: Diltiazem 120 MG Cap.CD PO SCH (08:44)
[2022-03-26] MEDS: Rivaroxaban 10 MG Tab PO SCH (08:44)
[2022-03-26] MEDS: Cholecalciferol (Vitamin D3) 5,000 UNIT Tab PO SCH (08:45)
[2022-03-26] MEDS: Furosemide 40 MG/4 ML VIAL IVPUSH SCH (09:00)
[2022-03-26] MEDS: Metoprolol Succinate 50 MG Tab.ER PO SCH ×2 (11:49→20:01)
[2022-03-26] MEDS: Diclofenac Sodium 1% Gel 100 GM Tube TOP SCH ×2 (11:49→20:02)
[2022-03-26] MEDS: Naltrexone 50 MG Tab PO SCH (11:52)
[2022-03-26] MEDS: atorvaSTATin 40 MG Tab PO SCH (20:00)
[2022-03-26] MEDS: traZODone 50 MG Tab PO PRN (22:49)
[2022-03-27] MEDS: Albuterol/Ipratropium 3.0-0.5 MG/3 ML Neb Soln NEB PRN ×5 (01:21→20:24)
[2022-03-27] MEDS: methylPREDNISolone Sodium Succinate 125 MG/2 ML SDV IVPUSH SCH ×4 (02:08→20:19)
[2022-03-27] MEDS: LORazepam 2 MG/ML SDV IVPUSH PRN ×3 (02:10→21:30)
[2022-03-27] MEDS: Piperacillin/Tazobactam 4.5 GM in Sodium Chloride 0.9% 100 ML IV SCH ×3 (04:09→20:22)
[2022-03-27] MEDS: metFORMIN 500 MG Tab PO SCH ×2 (06:00→18:38)
[2022-03-27] MEDS: Pantoprazole 40 MG Tab.CR PO SCH (06:00)
[2022-03-27] MEDS: oxyCODONE 5 MG Tab PO PRN ×4 (06:00→23:45)
[2022-03-27] MEDS: Formoterol/Mometasone 100-5 MCG 8.8 GM Inhaler IH SCH ×2 (06:08→20:24)
[2022-03-27] MEDS ORDERED: Sennosides 8.6 MG Tab PO PRN (09:16)
[2022-03-27] MEDS: Furosemide 40 MG/4 ML VIAL IVPUSH SCH (09:27)
[2022-03-27] MEDS: Insulin Regular, Human 100 Units/ML 3 ML Vial SUBCUT SCH ×3 (09:27→18:39)
[2022-03-27] MEDS: Amiodarone 200 MG Tab PO SCH (09:28)
[2022-03-27] MEDS: Metoprolol Succinate 50 MG Tab.ER PO SCH ×2 (09:28→20:47)
[2022-03-27] MEDS: Magnesium Oxide 400 MG Tab PO SCH (09:29)
[2022-03-27] MEDS: Rivaroxaban 10 MG Tab PO SCH (09:29)
[2022-03-27] MEDS: Gabapentin 600 MG Tab PO SCH ×3 (09:29→20:47)
[2022-03-27] MEDS: Folic Acid 1 MG Tab PO SCH (09:29)
[2022-03-27] MEDS: Thiamine 100 MG Tab PO SCH (09:29)
[2022-03-27] MEDS: Tamsulosin 0.4 MG Cap.ER PO SCH (09:29)
[2022-03-27] MEDS ORDERED: Furosemide 20 MG/2 ML VIAL IVPUSH SCH (09:30)
[2022-03-27] MEDS: Diltiazem 120 MG Cap.CD PO SCH (09:30)
[2022-03-27] MEDS: Potassium Chloride 20 MEQ Tab.ER PO SCH (09:30)
[2022-03-27] MEDS: Cholecalciferol (Vitamin D3) 5,000 UNIT Tab PO SCH (09:31)
[2022-03-27] MEDS: Diclofenac Sodium 1% Gel 100 GM Tube TOP SCH ×2 (09:31→20:51)
[2022-03-27] MEDS: Naltrexone 50 MG Tab PO SCH (12:29)
[2022-03-27] MEDS ORDERED: Bumetanide 1 MG/4 ML MDV IVPUSH ONE (14:18)
[2022-03-27] MEDS ORDERED: Iopamidol 755 Mg/ML 100 ML Bottle IVPUSH ONE ×2 (14:39→14:40)
[2022-03-27] MEDS ORDERED: Sodium Chloride 0.9% 100 ML IV SCH ×2 (14:45)
[2022-03-27] MEDS: atorvaSTATin 40 MG Tab PO SCH (20:47)
[2022-03-27] MEDS: traZODone 50 MG Tab PO PRN (21:22)
[2022-03-27] MEDS: Cyclobenzaprine 10 MG Tab PO PRN (21:22)
[2022-03-28] MEDS: Albuterol/Ipratropium 3.0-0.5 MG/3 ML Neb Soln NEB PRN ×6 (00:20→20:29)
[2022-03-28] MEDS: methylPREDNISolone Sodium Succinate 125 MG/2 ML SDV IVPUSH SCH ×4 (01:26→20:46)
[2022-03-28] MEDS: LORazepam 2 MG/ML SDV IVPUSH PRN ×5 (01:45→21:09)
[2022-03-28] MEDS: Piperacillin/Tazobactam 4.5 GM in Sodium Chloride 0.9% 100 ML IV SCH ×3 (03:57→20:46)
[2022-03-28] MEDS: Formoterol/Mometasone 100-5 MCG 8.8 GM Inhaler IH SCH ×2 (05:04→20:29)
[2022-03-28] MEDS: Pantoprazole 40 MG Tab.CR PO SCH (06:09)
[2022-03-28] MEDS: metFORMIN 500 MG Tab PO SCH ×2 (06:09→17:58)
[2022-03-28] MEDS: oxyCODONE 5 MG Tab PO PRN (06:09)
[2022-03-28] MEDS: Amiodarone 200 MG Tab PO SCH (08:32)
[2022-03-28] MEDS: Diltiazem 120 MG Cap.CD PO SCH (08:33)
[2022-03-28] MEDS: Thiamine 100 MG Tab PO SCH (08:33)
[2022-03-28] MEDS: Rivaroxaban 10 MG Tab PO SCH (08:33)
[2022-03-28] MEDS: Gabapentin 600 MG Tab PO SCH ×3 (08:33→20:55)
[2022-03-28] MEDS: Cholecalciferol (Vitamin D3) 5,000 UNIT Tab PO SCH (08:34)
[2022-03-28] MEDS: Folic Acid 1 MG Tab PO SCH (08:34)
[2022-03-28] MEDS: Magnesium Oxide 400 MG Tab PO SCH (08:34)
[2022-03-28] MEDS: Metoprolol Succinate 50 MG Tab.ER PO SCH ×2 (08:34→20:52)
[2022-03-28] MEDS: Tamsulosin 0.4 MG Cap.ER PO SCH (08:34)
[2022-03-28] MEDS: Potassium Chloride 20 MEQ Tab.ER PO SCH ×2 (08:34→20:52)
[2022-03-28] MEDS: Bumetanide 1 MG/4 ML MDV IVPUSH SCH (08:35)
[2022-03-28] MEDS: Insulin Regular, Human 100 Units/ML 3 ML Vial SUBCUT SCH ×3 (08:35→18:00)
[2022-03-28] MEDS: Diclofenac Sodium 1% Gel 100 GM Tube TOP SCH ×2 (08:37→20:53)
[2022-03-28] MEDS ORDERED: Furosemide 40 MG/4 ML VIAL IVPUSH SCH (09:00)
[2022-03-28] MEDS: Naltrexone 50 MG Tab PO SCH (11:42)
[2022-03-28] MEDS ORDERED: Lactulose Soln 10 GM/15 ML 30 ML UD Cup PO PRN (13:01)
[2022-03-28] MEDS: atorvaSTATin 40 MG Tab PO SCH (20:53)
[2022-03-29] MEDS: LORazepam 2 MG/ML SDV IVPUSH PRN ×7 (00:33→21:32)
[2022-03-29] MEDS: methylPREDNISolone Sodium Succinate 125 MG/2 ML SDV IVPUSH SCH ×4 (02:29→20:17)
[2022-03-29] MEDS: Piperacillin/Tazobactam 4.5 GM in Sodium Chloride 0.9% 100 ML IV SCH ×4 (04:02→22:57)
[2022-03-29] MEDS: Albuterol/Ipratropium 3.0-0.5 MG/3 ML Neb Soln NEB PRN ×3 (05:13→16:10)
[2022-03-29] MEDS: Formoterol/Mometasone 100-5 MCG 8.8 GM Inhaler IH SCH ×2 (05:13→20:40)
[2022-03-29] MEDS: Pantoprazole 40 MG Tab.CR PO SCH (06:08)
[2022-03-29] MEDS: metFORMIN 500 MG Tab PO SCH ×2 (06:37→17:46)
[2022-03-29] MEDS: Magnesium Oxide 400 MG Tab PO SCH (08:37)
[2022-03-29] MEDS: Metoprolol Succinate 50 MG Tab.ER PO SCH ×2 (08:37→20:17)
[2022-03-29] MEDS: Gabapentin 600 MG Tab PO SCH ×3 (08:38→20:17)
[2022-03-29] MEDS: Folic Acid 1 MG Tab PO SCH (08:38)
[2022-03-29] MEDS: Cholecalciferol (Vitamin D3) 5,000 UNIT Tab PO SCH (08:38)
[2022-03-29] MEDS: Spironolactone 25 MG Tab PO SCH (08:38)
[2022-03-29] MEDS: Tamsulosin 0.4 MG Cap.ER PO SCH (08:38)
[2022-03-29] MEDS: Rivaroxaban 10 MG Tab PO SCH (08:38)
[2022-03-29] MEDS: Amiodarone 200 MG Tab PO SCH (08:38)
[2022-03-29] MEDS: Potassium Chloride 20 MEQ Tab.ER PO SCH (08:39)
[2022-03-29] MEDS: Thiamine 100 MG Tab PO SCH (08:39)
[2022-03-29] MEDS: Diltiazem 120 MG Cap.CD PO SCH (08:40)
[2022-03-29] MEDS: Diclofenac Sodium 1% Gel 100 GM Tube TOP SCH ×2 (08:41→20:18)
[2022-03-29] MEDS: Insulin Regular, Human 100 Units/ML 3 ML Vial SUBCUT SCH ×4 (08:41→18:40)
[2022-03-29] MEDS: Bumetanide 1 MG/4 ML MDV IVPUSH SCH (08:41)
[2022-03-29] MEDS ORDERED: VANCOmycin 1.25 GM/250 ML 1.25 GM in Premix Bag 1 BAG IV SCH ×2 (10:00→20:00)
[2022-03-29] MEDS: Naltrexone 50 MG Tab PO SCH (12:10)
[2022-03-29] MEDS: Sodium Chloride 0.45% with KCl 1,000 ML IV SCH (12:11)
[2022-03-29 12:42] LABS: CORONAVIRUS COVID-19 NAA NEGATIVE (NEGATIVE)
[2022-03-29] MEDS ORDERED: Albuterol 0.042% 1.25 MG/3 ML Neb Soln NEB PRN (17:58)
[2022-03-29] MEDS: atorvaSTATin 40 MG Tab PO SCH (20:17)
[2022-03-29] MEDS: Albuterol 0.042% 1.25 MG/3 ML Neb Soln NEB PRN (20:41)
[2022-03-29] MEDS: oxyCODONE 5 MG Tab PO PRN (23:35)
[2022-03-29] MEDS: traZODone 50 MG Tab PO PRN (23:36)
[2022-03-30] MEDS: LORazepam 2 MG/ML SDV IVPUSH PRN ×9 (00:39→19:46)
[2022-03-30] MEDS: methylPREDNISolone Sodium Succinate 125 MG/2 ML SDV IVPUSH SCH ×4 (02:31→20:10)
[2022-03-30] MEDS: Piperacillin/Tazobactam 4.5 GM in Sodium Chloride 0.9% 100 ML IV SCH ×3 (05:37→21:44)
[2022-03-30] MEDS ORDERED: VANCOmycin 1.25 GM/250 ML 1.25 GM in Premix Bag 1 BAG IV SCH (06:00)
[2022-03-30] MEDS: Albuterol 0.042% 1.25 MG/3 ML Neb Soln NEB PRN ×2 (06:49→20:20)
[2022-03-30] MEDS: Formoterol/Mometasone 100-5 MCG 8.8 GM Inhaler IH SCH ×2 (06:49→20:20)
[2022-03-30] MEDS: metFORMIN 500 MG Tab PO SCH (07:41)
[2022-03-30] MEDS: Pantoprazole 40 MG Tab.CR PO SCH (07:42)
[2022-03-30] MEDS: Magnesium Oxide 400 MG Tab PO SCH (07:42)
[2022-03-30] MEDS: Spironolactone 25 MG Tab PO SCH (08:05)
[2022-03-30] MEDS: Cholecalciferol (Vitamin D3) 5,000 UNIT Tab PO SCH (08:05)
[2022-03-30] MEDS: Metoprolol Succinate 50 MG Tab.ER PO SCH ×2 (08:05→20:09)
[2022-03-30] MEDS: Thiamine 100 MG Tab PO SCH (08:05)
[2022-03-30] MEDS: Gabapentin 600 MG Tab PO SCH ×3 (08:06→20:09)
[2022-03-30] MEDS: Amiodarone 200 MG Tab PO SCH (08:06)
[2022-03-30] MEDS: Diltiazem 120 MG Cap.CD PO SCH (08:06)
[2022-03-30] MEDS: Folic Acid 1 MG Tab PO SCH (08:06)
[2022-03-30] MEDS: Rivaroxaban 10 MG Tab PO SCH (08:06)
[2022-03-30] MEDS: Tamsulosin 0.4 MG Cap.ER PO SCH (08:06)
[2022-03-30] MEDS: Insulin Regular, Human 100 Units/ML 3 ML Vial SUBCUT SCH ×3 (08:08→18:27)
[2022-03-30] MEDS: Diclofenac Sodium 1% Gel 100 GM Tube TOP SCH ×2 (08:10→20:09)
[2022-03-30] MEDS: VANCOmycin 1.25 GM/250 ML 1.25 GM in Premix Bag 1 BAG IV SCH ×2 (09:50→20:00)
[2022-03-30] MEDS: Albuterol/Ipratropium 3.0-0.5 MG/3 ML Neb Soln NEB PRN (10:02)
[2022-03-30] MEDS: Sodium Chloride 0.45% with KCl 1,000 ML IV SCH (12:25)
[2022-03-30] MEDS ORDERED: chlordiazePOXIDE 10 MG Cap PO SCH (13:00)
[2022-03-30] MEDS: Naltrexone 50 MG Tab PO SCH (13:04)
[2022-03-30] MEDS: Levofloxacin/Dextrose 5%-Water 750 MG in Premix Bag 1 BAG IV SCH (14:10)
[2022-03-30] MEDS: Cyclobenzaprine 10 MG Tab PO PRN (14:20)
[2022-03-30] MEDS: Fluconazole/Normal Saline 200 MG in Premix Bag 1 BAG IV SCH (16:07)
[2022-03-30] MEDS ORDERED: Bumetanide 1 MG/4 ML MDV IVPUSH ONE (18:01)
[2022-03-30] MEDS: atorvaSTATin 40 MG Tab PO SCH (20:09)
[2022-03-31] MEDS: methylPREDNISolone Sodium Succinate 125 MG/2 ML SDV IVPUSH SCH ×4 (01:23→21:07)
[2022-03-31] MEDS: Formoterol/Mometasone 100-5 MCG 8.8 GM Inhaler IH SCH ×2 (05:24→20:32)
[2022-03-31] MEDS: Albuterol/Ipratropium 3.0-0.5 MG/3 ML Neb Soln NEB PRN ×2 (05:24→20:33)
[2022-03-31] MEDS: Piperacillin/Tazobactam 4.5 GM in Sodium Chloride 0.9% 100 ML IV SCH ×3 (06:13→21:15)
[2022-03-31] MEDS: Pantoprazole 40 MG Tab.CR PO SCH (06:17)
[2022-03-31] MEDS: Bumetanide 1 MG/4 ML MDV IVPUSH SCH ×3 (08:07→09:13)
[2022-03-31] MEDS: Metoprolol Succinate 50 MG Tab.ER PO SCH ×2 (08:18→21:08)
[2022-03-31] MEDS: Rivaroxaban 10 MG Tab PO SCH (08:22)
[2022-03-31] MEDS: Diltiazem 120 MG Cap.CD PO SCH (08:22)
[2022-03-31] MEDS: Spironolactone 25 MG Tab PO SCH (08:23)
[2022-03-31] MEDS: Amiodarone 200 MG Tab PO SCH (08:23)
[2022-03-31] MEDS: Thiamine 100 MG Tab PO SCH (08:23)
[2022-03-31] MEDS: Folic Acid 1 MG Tab PO SCH (08:27)
[2022-03-31] MEDS: Magnesium Oxide 400 MG Tab PO SCH (08:27)
[2022-03-31] MEDS: Gabapentin 600 MG Tab PO SCH ×3 (08:27→21:10)
[2022-03-31] MEDS: Cholecalciferol (Vitamin D3) 5,000 UNIT Tab PO SCH (08:27)
[2022-03-31] MEDS: Insulin Regular, Human 100 Units/ML 3 ML Vial SUBCUT SCH ×3 (08:27→19:03)
[2022-03-31] MEDS: VANCOmycin 1.25 GM/250 ML 1.25 GM in Premix Bag 1 BAG IV SCH ×2 (08:52→21:11)
[2022-03-31] MEDS: Diclofenac Sodium 1% Gel 100 GM Tube TOP SCH ×2 (09:10→21:13)
[2022-03-31] MEDS: Tamsulosin 0.4 MG Cap.ER PO SCH (09:11)
[2022-03-31] MEDS: Naltrexone 50 MG Tab PO SCH (12:21)
[2022-03-31] MEDS: Levofloxacin/Dextrose 5%-Water 750 MG in Premix Bag 1 BAG IV SCH (13:23)
[2022-03-31] MEDS: oxyCODONE 5 MG Tab PO PRN ×3 (13:55→23:37)
[2022-03-31] MEDS: Fluconazole/Normal Saline 200 MG in Premix Bag 1 BAG IV SCH (16:29)
[2022-03-31] MEDS: LORazepam 2 MG/ML SDV IVPUSH PRN (16:57)
[2022-03-31] MEDS ORDERED: Bumetanide 1 MG/4 ML MDV IVPUSH ONE (18:00)
[2022-03-31] MEDS: atorvaSTATin 40 MG Tab PO SCH (21:10)
[2022-03-31] MEDS: Nystatin Susp 100,000 Unit/ML 5 ML Oral Syringe PO SCH (23:20)
[2022-03-31] MEDS: LORazepam 1 MG Tab PO PRN (23:36)
[2022-04-01] MEDS: methylPREDNISolone Sodium Succinate 125 MG/2 ML SDV IVPUSH SCH ×4 (01:51→20:10)
[2022-04-01] MEDS: Formoterol/Mometasone 100-5 MCG 8.8 GM Inhaler IH SCH ×2 (05:34→20:17)
[2022-04-01] MEDS ORDERED: Piperacillin/Tazobactam 4.5 GM in Sodium Chloride 0.9% 100 ML IV SCH ×2 (06:00→06:30)
[2022-04-01] MEDS: Pantoprazole 40 MG Tab.CR PO SCH (06:35)
[2022-04-01] MEDS: oxyCODONE 5 MG Tab PO PRN ×3 (06:39→20:07)
[2022-04-01] MEDS: LORazepam 1 MG Tab PO PRN ×2 (07:06→12:25)
[2022-04-01] MEDS: Piperacillin/Tazobactam 4.5 GM in Sodium Chloride 0.9% 100 ML IV SCH ×4 (07:38→23:09)
[2022-04-01] MEDS: Diltiazem 120 MG Cap.CD PO SCH (08:18)
[2022-04-01] MEDS: Amiodarone 200 MG Tab PO SCH (08:18)
[2022-04-01] MEDS: Cholecalciferol (Vitamin D3) 5,000 UNIT Cap PO SCH (08:18)
[2022-04-01] MEDS: Spironolactone 25 MG Tab PO SCH (08:21)
[2022-04-01] MEDS: Gabapentin 600 MG Tab PO SCH ×3 (08:21→20:11)
[2022-04-01] MEDS: Folic Acid 1 MG Tab PO SCH (08:21)
[2022-04-01] MEDS: Tamsulosin 0.4 MG Cap.ER PO SCH (08:21)
[2022-04-01] MEDS: Magnesium Oxide 400 MG Tab PO SCH (08:21)
[2022-04-01] MEDS: Thiamine 100 MG Tab PO SCH (08:23)
[2022-04-01] MEDS: Metoprolol Succinate 50 MG Tab.ER PO SCH ×2 (08:23→20:10)
[2022-04-01] MEDS: Rivaroxaban 10 MG Tab PO SCH (08:23)
[2022-04-01] MEDS: Insulin Regular, Human 100 Units/ML 3 ML Vial SUBCUT SCH ×3 (08:26→18:01)
[2022-04-01] MEDS: Bumetanide 1 MG/4 ML MDV IVPUSH SCH (08:29)
[2022-04-01] MEDS: Diclofenac Sodium 1% Gel 100 GM Tube TOP SCH ×2 (08:32→20:12)
[2022-04-01] MEDS: Nystatin Susp 100,000 Unit/ML 5 ML Oral Syringe PO SCH ×3 (08:32→20:11)
[2022-04-01] MEDS ORDERED: VANCOmycin 1.25 GM/250 ML 250 ML ONE (08:36)
[2022-04-01] MEDS: VANCOmycin 1.25 GM/250 ML 1.25 GM in Premix Bag 1 BAG IV SCH ×2 (08:38→20:13)
[2022-04-01] MEDS: Potassium Chloride 20 MEQ Tab.ER PO SCH ×3 (10:31→20:11)
[2022-04-01] MEDS ORDERED: Magnesium Sulfate/Water 2 GM in Premix Bag 1 BAG IV ONE (11:00)
[2022-04-01] MEDS ORDERED: Magnesium Sulfate (4.06 MEQ/ML) 5 GM/10 ML SDV IV ONE (11:00)
[2022-04-01] MEDS: Naltrexone 50 MG Tab PO SCH (11:14)
[2022-04-01] MEDS: Levofloxacin/Dextrose 5%-Water 750 MG in Premix Bag 1 BAG IV SCH (15:07)
[2022-04-01] MEDS: Fluconazole/Normal Saline 200 MG in Premix Bag 1 BAG IV SCH (16:15)
[2022-04-01] MEDS: atorvaSTATin 40 MG Tab PO SCH (20:11)
[2022-04-01] MEDS: Albuterol/Ipratropium 3.0-0.5 MG/3 ML Neb Soln NEB PRN (20:17)
[2022-04-01] MEDS: LORazepam 2 MG/ML SDV IVPUSH PRN (21:19)
[2022-04-02] MEDS: methylPREDNISolone Sodium Succinate 125 MG/2 ML SDV IVPUSH SCH ×4 (02:00→20:16)
[2022-04-02] MEDS: oxyCODONE 5 MG Tab PO PRN ×4 (04:00→20:18)
[2022-04-02] MEDS: Pantoprazole 40 MG Tab.CR PO SCH (06:37)
[2022-04-02] MEDS: Piperacillin/Tazobactam 4.5 GM in Sodium Chloride 0.9% 100 ML IV SCH ×3 (06:37→23:01)
[2022-04-02] MEDS: Formoterol/Mometasone 100-5 MCG 8.8 GM Inhaler IH SCH ×2 (06:49→20:50)
[2022-04-02] MEDS: Albuterol/Ipratropium 3.0-0.5 MG/3 ML Neb Soln NEB PRN ×2 (06:49→20:50)
[2022-04-02 07:54] LABS: ESTIMATED GFR 97 mL/min (>60)
[2022-04-02] MEDS: Potassium Chloride 20 MEQ Tab.ER PO SCH ×3 (08:30→20:17)
[2022-04-02] MEDS: Amiodarone 200 MG Tab PO SCH (08:30)
[2022-04-02] MEDS: Metoprolol Succinate 50 MG Tab.ER PO SCH ×2 (08:31→20:17)
[2022-04-02] MEDS: Rivaroxaban 10 MG Tab PO SCH (08:31)
[2022-04-02] MEDS: Cholecalciferol (Vitamin D3) 5,000 UNIT Cap PO SCH (08:31)
[2022-04-02] MEDS: Gabapentin 600 MG Tab PO SCH ×3 (08:31→20:17)
[2022-04-02] MEDS: Folic Acid 1 MG Tab PO SCH (08:31)
[2022-04-02] MEDS: Diltiazem 120 MG Cap.CD PO SCH (08:32)
[2022-04-02] MEDS: Magnesium Oxide 400 MG Tab PO SCH (08:32)
[2022-04-02] MEDS: Spironolactone 25 MG Tab PO SCH (08:32)
[2022-04-02] MEDS: Tamsulosin 0.4 MG Cap.ER PO SCH (08:32)
[2022-04-02] MEDS: Thiamine 100 MG Tab PO SCH (08:32)
[2022-04-02] MEDS: Nystatin Susp 100,000 Unit/ML 5 ML Oral Syringe PO SCH ×3 (08:33→20:18)
[2022-04-02] MEDS: Bumetanide 1 MG/4 ML MDV IVPUSH SCH (08:33)
[2022-04-02] MEDS: Insulin Regular, Human 100 Units/ML 3 ML Vial SUBCUT SCH ×3 (08:36→18:00)
[2022-04-02] MEDS: Diclofenac Sodium 1% Gel 100 GM Tube TOP SCH ×2 (08:37→20:33)
[2022-04-02] MEDS: VANCOmycin 1.25 GM/250 ML 1.25 GM in Premix Bag 1 BAG IV SCH ×2 (08:38→20:19)
[2022-04-02] MEDS: Naltrexone 50 MG Tab PO SCH (11:27)
[2022-04-02] MEDS: Levofloxacin/Dextrose 5%-Water 750 MG in Premix Bag 1 BAG IV SCH (14:04)
[2022-04-02] MEDS: Fluconazole/Normal Saline 200 MG in Premix Bag 1 BAG IV SCH (15:56)
[2022-04-02] MEDS: LORazepam 2 MG/ML SDV IVPUSH PRN ×2 (17:07→23:05)
[2022-04-02] MEDS: atorvaSTATin 40 MG Tab PO SCH (20:18)
[2022-04-02] MEDS: Saccharomyces Boulardii (Probiotic) 250 MG Cap PO SCH (20:18)
[2022-04-03] MEDS: oxyCODONE 5 MG Tab PO PRN (02:00)
[2022-04-03] MEDS: methylPREDNISolone Sodium Succinate 125 MG/2 ML SDV IVPUSH SCH ×3 (02:10→16:06)
[2022-04-03] MEDS: Albuterol/Ipratropium 3.0-0.5 MG/3 ML Neb Soln NEB PRN ×2 (06:25→12:09)
[2022-04-03] MEDS: Formoterol/Mometasone 100-5 MCG 8.8 GM Inhaler IH SCH ×2 (06:25→21:22)
[2022-04-03] MEDS: Pantoprazole 40 MG Tab.CR PO SCH (06:35)
[2022-04-03] MEDS: Piperacillin/Tazobactam 4.5 GM in Sodium Chloride 0.9% 100 ML IV SCH (06:35)
[2022-04-03] MEDS: LORazepam 2 MG/ML SDV IVPUSH PRN (06:46)
[2022-04-03] MEDS: Rivaroxaban 10 MG Tab PO SCH (08:19)
[2022-04-03] MEDS: Saccharomyces Boulardii (Probiotic) 250 MG Cap PO SCH ×2 (08:19→20:58)
[2022-04-03] MEDS: Thiamine 100 MG Tab PO SCH (08:19)
[2022-04-03] MEDS: Spironolactone 25 MG Tab PO SCH (08:19)
[2022-04-03] MEDS: Cholecalciferol (Vitamin D3) 5,000 UNIT Cap PO SCH (08:20)
[2022-04-03] MEDS: Metoprolol Succinate 50 MG Tab.ER PO SCH ×2 (08:20→20:58)
[2022-04-03] MEDS: Amiodarone 200 MG Tab PO SCH (08:20)
[2022-04-03] MEDS: Tamsulosin 0.4 MG Cap.ER PO SCH (08:20)
[2022-04-03] MEDS: Diltiazem 120 MG Cap.CD PO SCH (08:20)
[2022-04-03] MEDS: Folic Acid 1 MG Tab PO SCH (08:20)
[2022-04-03] MEDS: Gabapentin 600 MG Tab PO SCH ×3 (08:20→20:58)
[2022-04-03] MEDS: Nystatin Susp 100,000 Unit/ML 5 ML Oral Syringe PO SCH ×3 (08:21→20:59)
[2022-04-03] MEDS: Bumetanide 1 MG/4 ML MDV IVPUSH SCH (08:22)
[2022-04-03] MEDS: Diclofenac Sodium 1% Gel 100 GM Tube TOP SCH ×2 (08:22→21:00)
[2022-04-03] MEDS: Insulin Regular, Human 100 Units/ML 3 ML Vial SUBCUT SCH ×3 (08:24→18:18)
[2022-04-03] MEDS: Magnesium Oxide 400 MG Tab PO SCH (08:24)
[2022-04-03] MEDS: VANCOmycin 1.25 GM/250 ML 1.25 GM in Premix Bag 1 BAG IV SCH ×2 (08:33→20:26)
[2022-04-03] MEDS: Naltrexone 50 MG Tab PO SCH (12:00)
[2022-04-03] MEDS ORDERED: Bumetanide 1 MG/4 ML MDV IVPUSH ONE (13:41)
[2022-04-03] MEDS: Levofloxacin/Dextrose 5%-Water 750 MG in Premix Bag 1 BAG IV SCH (14:00)
[2022-04-03] MEDS: Albuterol/Ipratropium 3.0-0.5 MG/3 ML Neb Soln NEB SCH ×2 (15:57→21:22)
[2022-04-03] MEDS: Insulin NPH/Insulin Regular,Human 70-30 100 Units/ML 10 ML Vial SUBCUT SCH (16:08)
[2022-04-03] MEDS ORDERED: Succinylcholine 200 MG/10 ML MDV IV ONE (16:23)
[2022-04-03] MEDS ORDERED: Midazolam 1 MG/ML 5 ML SDV IVPUSH ONE (16:23)
[2022-04-03] MEDS: Cefepime 2 GM in Sodium Chloride 0.9% 50 ML IV SCH (17:11)
[2022-04-03] MEDS: Pantoprazole 40 MG Vial IVPUSH SCH (17:11)
[2022-04-03] MEDS: propofoL 100 ML IV SCH ×4 (18:11→23:43)
[2022-04-03] MEDS: Fluconazole/Normal Saline 200 MG in Premix Bag 1 BAG IV SCH (19:23)
[2022-04-03] MEDS: Metoprolol Tartrate 5 MG/5 ML SDV IVPUSH PRN (20:02)
[2022-04-03] MEDS: atorvaSTATin 40 MG Tab PO SCH (20:57)
[2022-04-04] MEDS: methylPREDNISolone Sodium Succinate 125 MG/2 ML SDV IVPUSH SCH ×4 (00:26→19:51)
[2022-04-04] MEDS: Metoprolol Tartrate 5 MG/5 ML SDV IVPUSH PRN ×6 (00:29→17:36)
[2022-04-04] MEDS: Cefepime 2 GM in Sodium Chloride 0.9% 50 ML IV SCH ×3 (00:34→16:18)
[2022-04-04] MEDS: propofoL 100 ML IV SCH ×13 (01:01→22:30)
[2022-04-04] MEDS: oxyCODONE 5 MG Tab PO PRN (02:37)
[2022-04-04] MEDS: Albuterol 0.083% 2.5 MG/3 ML Neb Soln NEB PRN (03:17)
[2022-04-04] MEDS: Albuterol/Ipratropium 3.0-0.5 MG/3 ML Neb Soln NEB SCH ×4 (05:00→20:46)
[2022-04-04] MEDS: Formoterol/Mometasone 100-5 MCG 8.8 GM Inhaler IH SCH ×2 (05:03→22:07)
[2022-04-04] MEDS: Pantoprazole 40 MG Vial IVPUSH SCH ×2 (05:31→16:18)
[2022-04-04] MEDS: Insulin NPH/Insulin Regular,Human 70-30 100 Units/ML 10 ML Vial SUBCUT SCH (05:40)
[2022-04-04] MEDS ORDERED: Bumetanide 1 MG/4 ML MDV IVPUSH SCH (06:00)
[2022-04-04] MEDS ORDERED: Sodium Chloride 0.45% 1,000 ML IV SCH (08:45)
[2022-04-04] MEDS: Metoprolol Tartrate 50 MG Tab PO SCH ×2 (08:58→22:10)
[2022-04-04] MEDS: Thiamine 100 MG Tab PO SCH (08:58)
[2022-04-04] MEDS: Magnesium Oxide 400 MG Tab PO SCH (08:59)
[2022-04-04] MEDS: Gabapentin 600 MG Tab PO SCH ×3 (08:59→22:12)
[2022-04-04] MEDS: Folic Acid 1 MG Tab PO SCH (08:59)
[2022-04-04] MEDS: Rivaroxaban 10 MG Tab PO SCH (08:59)
[2022-04-04] MEDS ORDERED: Nystatin Susp 100,000 Unit/ML 5 ML UD Cup PO SCH (09:00)
[2022-04-04] MEDS ORDERED: Diltiazem IR 60 MG Tab PO SCH (09:00)
[2022-04-04] MEDS: Insulin Regular, Human 100 Units/ML 3 ML Vial SUBCUT SCH ×3 (09:10→20:16)
[2022-04-04] MEDS: Diclofenac Sodium 1% Gel 100 GM Tube TOP SCH ×2 (09:22→22:13)
[2022-04-04 09:40] LABS: ESTIMATED GFR 76 mL/min (>60)
[2022-04-04] MEDS ORDERED: Sodium Chloride 0.9% 500 ML ONE (09:40)
[2022-04-04] MEDS: VANCOmycin 1.25 GM/250 ML 1.25 GM in Premix Bag 1 BAG IV SCH ×2 (10:45→21:56)
[2022-04-04] MEDS: hydrALAZINE 20 MG/ML SDV IVPUSH PRN ×2 (11:29→17:36)
[2022-04-04] MEDS ORDERED: Sodium Chloride 0.9% 1,000 ML ONE (12:36)
[2022-04-04] MEDS: Sodium Chloride 0.9% 1,000 ML IV SCH ×2 (12:40→19:59)
[2022-04-04] MEDS: Levofloxacin/Dextrose 5%-Water 750 MG in Premix Bag 1 BAG IV SCH (13:56)
[2022-04-04] MEDS: Diltiazem IR 60 MG Tab PO SCH ×2 (14:01→22:13)
[2022-04-04] MEDS ORDERED: hydrALAZINE 20 MG/ML SDV IVPUSH PRN (18:59)
[2022-04-04] MEDS ORDERED: Bumetanide 1 MG/4 ML MDV IVPUSH ONE (20:00)
[2022-04-04] MEDS: atorvaSTATin 40 MG Tab PO SCH (22:12)
[2022-04-05] MEDS: propofoL 100 ML IV SCH ×5 (00:25→07:33)
[2022-04-05] MEDS: Cefepime 2 GM in Sodium Chloride 0.9% 50 ML IV SCH ×2 (00:32→09:23)
[2022-04-05] MEDS: methylPREDNISolone Sodium Succinate 125 MG/2 ML SDV IVPUSH SCH ×3 (00:33→13:38)
[2022-04-05] MEDS: Insulin Regular, Human 100 Units/ML 3 ML Vial SUBCUT SCH ×3 (02:23→16:23)
[2022-04-05] MEDS: Metoprolol Tartrate 5 MG/5 ML SDV IVPUSH PRN (02:38)
[2022-04-05] MEDS: Albuterol 0.083% 2.5 MG/3 ML Neb Soln NEB PRN (03:36)
[2022-04-05] MEDS: oxyCODONE 5 MG Tab PO PRN (03:41)
[2022-04-05] MEDS: Albuterol/Ipratropium 3.0-0.5 MG/3 ML Neb Soln NEB SCH ×3 (05:27→15:30)
[2022-04-05] MEDS: LORazepam 2 MG/ML SDV IVPUSH PRN (05:53)
[2022-04-05] MEDS: Pantoprazole 40 MG Vial IVPUSH SCH (06:05)
[2022-04-05 06:49] LABS: ESTIMATED GFR 97 mL/min (>60)
[2022-04-05] MEDS: Formoterol/Mometasone 100-5 MCG 8.8 GM Inhaler IH SCH (07:00)
[2022-04-05] MEDS ORDERED: Sodium Chloride 0.9% 500 ML IV ONE (07:58)
[2022-04-05] MEDS ORDERED: Sodium Chloride 0.9% 1,000 ML IV SCH ×2 (08:15→13:30)
[2022-04-05] MEDS ORDERED: Bumetanide 1 MG/4 ML MDV IVPUSH SCH ×2 (09:00→21:00)
[2022-04-05] MEDS: Gabapentin 600 MG Tab PO SCH ×2 (09:14→16:24)
[2022-04-05] MEDS: Folic Acid 1 MG Tab PO SCH (09:14)
[2022-04-05] MEDS: Magnesium Oxide 400 MG Tab PO SCH (09:14)
[2022-04-05] MEDS: Rivaroxaban 10 MG Tab PO SCH (09:14)
[2022-04-05] MEDS: Diltiazem IR 60 MG Tab PO SCH ×2 (09:15→16:24)
[2022-04-05] MEDS: Metoprolol Tartrate 50 MG Tab PO SCH (09:15)
[2022-04-05] MEDS ORDERED: Esmolol/Normal Saline 2.5 GM/250 ML BAG IV SCH (09:15)
[2022-04-05] MEDS: Thiamine 100 MG Tab PO SCH (09:15)
[2022-04-05] MEDS: VANCOmycin 1.25 GM/250 ML 1.25 GM in Premix Bag 1 BAG IV SCH (09:23)
[2022-04-05] MEDS: Diclofenac Sodium 1% Gel 100 GM Tube TOP SCH (10:12)
[2022-04-05] MEDS ORDERED: Diltiazem 25 MG/5 ML SDV IVPUSH ONE (12:29)
[2022-04-05] MEDS: Levofloxacin/Dextrose 5%-Water 750 MG in Premix Bag 1 BAG IV SCH (13:39)
[2022-04-05] MEDS ORDERED: Diltiazem 25 MG/5 ML SDV IVPUSH SCH (14:00)
[2022-04-05 17:17] VITALS: BP 122/68; PULSE 104
== END 2022-04-05 16:14 | DRG 100 ==
LOC: JD.ED 15:51 → JD.MS 19:48 → OBSVTOIN 03-23 11:52 → JD.ICU 03-24 09:09
PROVIDERS: ADMIT Internal Medicine; ATTEND Internal Medicine
PROC: 5A1945Z Respiratory Ventilation, 24-96 Consecutive Hours (ICD-10-PCS; principal; 2022-04-02)
PROC: 0BH17EZ Insertion of Endotracheal Airway into Trachea, Via Natural or Artificial Opening (ICD-10-PCS; 2022-04-02)
DX: R56.9 Unspecified convulsions (principal); J80 Acute respiratory distress syndrome; I48.91 Unspecified atrial fibrillation; I10 Essential (primary) hypertension; E11.9 Type 2 diabetes mellitus without complications; J44.9 Chronic obstructive pulmonary disease, unspecified; E78.00 Pure hypercholesterolemia, unspecified; J18.9 Pneumonia, unspecified organism; I50.33 Acute on chronic diastolic (congestive) heart failure; Z99.81 Dependence on supplemental oxygen; A41.9 Sepsis, unspecified organism; Z79.84 Long term (current) use of oral hypoglycemic drugs; J44.0 Chronic obstructive pulmonary disease with (acute) lower respiratory infection; Z86.718 Personal history of other venous thrombosis and embolism; F10.239 Alcohol dependence with withdrawal, unspecified; E87.6 Hypokalemia; I11.0 Hypertensive heart disease with heart failure; I48.0 Paroxysmal atrial fibrillation; F43.12 Post-traumatic stress disorder, chronic; Z96.698 Presence of other orthopedic joint implants; Z96.643 Presence of artificial hip joint, bilateral; Z20.822 Contact with and (suspected) exposure to COVID-19; E11.43 Type 2 diabetes mellitus with diabetic autonomic (poly)neuropathy; K21.9 Gastro-esophageal reflux disease without esophagitis; E66.9 Obesity, unspecified; E78.5 Hyperlipidemia, unspecified; Z87.01 Personal history of pneumonia (recurrent); Z79.01 Long term (current) use of anticoagulants; Z86.14 Personal history of Methicillin resistant Staphylococcus aureus infection; Z79.899 Other long term (current) drug therapy; Z79.52 Long term (current) use of systemic steroids; Z87.442 Personal history of urinary calculi; Z87.81 Personal history of (healed) traumatic fracture; Z68.35 Body mass index [BMI] 35.0-35.9, adult; Z90.89 Acquired absence of other organs; Z98.890 Other specified postprocedural states; W18.30XA Fall on same level, unspecified, initial encounter; Y92.89 Other specified places as the place of occurrence of the external cause
CPT/HCPCS: 0241U; 36415; 36569; 36600; 51701; 51702; 51798; 70450; 71045; 71275; 73502; 74018; 80048; 80053; 80202; 80306; 80307; 81003; 82140; 82803; 82947; 83605; 83735; 83880; 84145; 84484; 85025; 86140; 86738; 87040; 87635; 87899; 93005; 93306; 94002; 94003; 94640; 94660; 94760; 94761; 97110; 97162; 97166; 97167; 97530; 99285; 93010; A9270-GY; C9113; J0330; J0360; J0692; J1450; J1815; J1815-GY; J1940; J1956; J2060; J2250; J2543; J2704; J2930; J3370; J3475; J3480; J3490; J7030; J7040; J7620-GY; U0002